=== PATIENT | male | born 1965 | race Caucasian/White ===

== ENCOUNTER 2016-12-26 23:19 | Inpatient (IN) | payer OTHER ==
[~2016-12-26] VITALS: Ht 185.4 cm; Wt 87.9 kg
[~2016-12-26 23:19] MED LIST: ALBU0.086 NEB; ALBU1AER INH; BACL10TA PO; GABA300C3 PO; HTN MED PO; HYDR-3535 PO; LISI-360 PO; PRED20 PO
[2016-12-26 23:20] VITALS: BP 134/82; PULSE 116; RESP 20; TEMP 98.9; O2SAT 100
[2016-12-27] VITALS (18 sets, daily range): BP systolic 68–128; BP diastolic 47–85; PULSE 80–113; RESP 14–22; TEMP 96–97.7; O2SAT 87–100
[2016-12-27] MEDS ORDERED: ALBU.5I NEB (01:29)
[2016-12-27] MEDS ORDERED: METO25TA3 PO (01:29)
[2016-12-27] MEDS ORDERED: LISI10TA3 PO (01:29)
[2016-12-27] MEDS ORDERED: GABA300C5 PO (01:29)
[2016-12-27] MEDS ORDERED: HYDR-3535 PO (01:29)
--- NOTE | 2016-12-27 01:49 | PD ---
HPI Chief Complaint: Respiratory Symptoms Time Seen by Provider: 01:19 Travel History International Travel<30 days: No Contact w/Intl Traveler<30days: No Traveled to known affect area: No History of Present Illness HPI 51yo M with PMH of asthma presents to the ED with c/o bilateral leg swelling for 3 days and exertional dyspnea as well. States he walks 3 feet and feels sob which is new. Denies any fever, cough, chest pain, n/v, abdominal pain. PFSH Past Medical History Asthma: Yes Diminished Hearing: No Fibromyalgia: Yes Hypertension: Yes Integumentary: Yes (reoccuring shingles) Immunizations Current: Yes Tetanus Vaccination: > 5 Years Influenza Vaccination: No Social History Alcohol Use: No Tobacco Use: Yes Substance Use: No Allergies-Medications (Allergen,Severity, Reaction): Coded Allergies: Ibuprofen (Verified Allergy, Severe, Nausea/Vomiting, 12/26/16) Levaquin (Verified Allergy, Mild, EDEMA, 12/26/16) Ultram (Verified Allergy, Mild, ITCHING, 12/26/16) Reported Meds & Prescriptions Reported Meds & Active Scripts Active Reported Lortab (Hydrocodone-Acetaminophen) 10-325 Mg Tab 1 Tab PO Q6H PRN Metoprolol Tartrate 25 Mg Tab 25 Mg PO DAILY Lisinopril 10 Mg Tab 10 Mg PO BID Albuterol Neb (Albuterol Sulfate) 2.5 Mg/0.5 Ml Neb 2.5 Mg NEB Q6HR NEB Note: The Albuterol Sulfate Inhalation Solution is concentrated and must be diluted. Read complete instructions carefully before using. Gabapentin 300 Mg Cap 900 Mg PO TID Review of Systems Except as stated in HPI: all other systems reviewed are Neg Physical Exam Narrative GENERAL: 51yo M in moderate distress. SKIN: Focused skin assessment warm/dry. HEAD: Atraumatic. Normocephalic. EYES: Pupils equal and round. No scleral icterus. No injection or drainage. ENT: No nasal bleeding or discharge. Mucous membranes pink and moist. NECK: Trachea midline. No JVD. CARDIOVASCULAR: Regular rate and rhythm. No murmur appreciated. RESPIRATORY: + accessory muscle use. Crackles bilateral bases. GASTROINTESTINAL: Abdomen soft, non-tender, nondistended. MUSCULOSKELETAL: No obvious deformities. No clubbing. No cyanosis. +Bilateral lower ext edema. NEUROLOGICAL: Awake and alert. No obvious cranial nerve deficits. Motor grossly within normal limits. Normal speech. PSYCHIATRIC: Appropriate mood and affect; insight and judgment normal. Data Data Last Documented VS Vital Signs Date Time Temp Pulse Resp B/P Pulse Ox O2 Delivery O2 Flow Rate FiO2 12/27/16 02:04 99 Room Air 12/27/16 01:29 110 22 128/79 12/26/16 23:20 98.9 Orders Complete Blood Count With Diff (12/27/16 01:40) Basic Metabolic Panel (Bmp) (12/27/16 01:40) B-Type Natriuretic Peptide (12/27/16 01:40) Act Partial Throm Time (Ptt) (12/27/16 01:40) Prothrombin Time / Inr (Pt) (12/27/16 01:40) Magnesium (Mg) (12/27/16 01:40) Ckmb (Isoenzyme) Profile (12/27/16 01:40) Troponin I (12/27/16 01:40) Blood Culture (12/27/16 01:40) Iv Access Insert/Monitor (12/27/16 01:40) Ecg Monitoring (12/27/16 01:40) Oximetry (12/27/16 01:40) Oxygen Administration (12/27/16 01:40) Chest, Single Ap (12/27/16 01:40) Lactic Acid Sepsis Protocol (12/27/16 01:40) Ceftriaxone Inj (Rocephin Inj) (12/27/16 02:45) Azithromycin (Zithromax) (12/27/16 02:45) Albuterol-Ipratropium Neb (Duoneb Neb) (12/27/16 02:45) CKMB (12/27/16 01:50) CKMB% (12/27/16 01:50) Furosemide Inj (Lasix Inj) (12/27/16 03:00) Admit To Inpatient (12/27/16 ) Vital Signs (Adult) Q4H (12/27/16 03:03) Activity Bed Rest With Brp (12/27/16 03:03) Diet Heart Healthy (12/27/16 Breakfast) Sodium Chloride 0.9% Flush (Ns Flush) (12/27/16 03:15) Sodium Chloride 0.9% Flush (Ns Flush) (12/27/16 09:00) Acetaminophen (Tylenol) (12/27/16 03:15) Ondansetron Inj (Zofran Inj) (12/27/16 03:15) Basic Metabolic Panel (Bmp) (12/28/16 06:00) Complete Blood Count With Diff (12/28/16 06:00) Troponin I (12/27/16 03:03) Electrocardiogram (12/27/16 03:03) Electrocardiogram (12/27/16 09:03) Resp Oxygen Jann C Titrat 1-4 L (12/27/16 ) Enoxaparin Inj (Lovenox Inj) (12/27/16 06:00) Naloxone Inj (Narcan Inj) (12/27/16 03:15) Inpatient Certification (12/27/16 ) Furosemide Inj (Lasix Inj) (12/27/16 09:00) Potassium Chloride (Kcl) (12/27/16 09:00) Echo 2d Comp W/Dopp(Routine) (12/27/16 ) Azithromycin (Zithromax) (12/27/16 09:00) Gabapentin (Neurontin) (12/27/16 09:00) Acetamin-Hydrocod 325-10 Mg ([place] 10-32 (12/27/16 03:15) Lisinopril (Prinivil) (12/27/16 09:00) Metoprolol Tartrate (Lopressor) (12/27/16 09:00) Admit Order (Ed Use Only) (12/27/16 03:06) Albuterol-Ipratropium Neb (Duoneb Neb) (12/27/16 08:00) Albuterol-Ipratropium Neb (Duoneb Neb) (12/27/16 03:15) Ceftriaxone Inj (Rocephin Inj) (12/28/16 03:00) Labs Laboratory Tests Test 12/27/16 01:50 White Blood Count 15.3 TH/MM3 Red Blood Count 5.31 MIL/MM3 Hemoglobin 14.3 GM/DL Hematocrit 44.8 % Mean Corpuscular Volume 84.2 FL Mean Corpuscular Hemoglobin 27.0 PG Mean Corpuscular Hemoglobin 32.0 % Concent Red Cell Distribution Width 15.8 % Platelet Count 385 TH/MM3 Mean Platelet Volume 9.2 FL Neutrophils (%) (Auto) % Lymphocytes (%) (Auto) % Monocytes (%) (Auto) % Eosinophils (%) (Auto) % Basophils (%) (Auto) % Neutrophils # (Auto) TH/MM3 Lymphocytes # (Auto) TH/MM3 Monocytes # (Auto) TH/MM3 Eosinophils # (Auto) TH/MM3 Basophils # (Auto) TH/MM3 CBC Comment AUTO DIFF Differential Total Cells 100 Counted Neutrophils % (Manual) 57 % Lymphocytes % 33 % Monocytes % 5 % Eosinophils % 5 % Neutrophils # (Manual) 8.7 TH/MM3 Differential Comment FINAL DIFF MANUAL Platelet Estimate NORMAL Platelet Morphology Comment ENLARGED Prothrombin Time 14.2 SEC Prothromb Time International 1.3 RATIO Ratio Activated Partial 25.4 SEC Thromboplast Time Sodium Level 133 MEQ/L Potassium Level 4.1 MEQ/L Chloride Level 98 MEQ/L Carbon Dioxide Level 26.8 MEQ/L Anion Gap 8 MEQ/L Blood Urea Nitrogen 29 MG/DL Creatinine 1.27 MG/DL Estimat Glomerular Filtration 59 ML/MIN Rate Random Glucose 119 MG/DL Lactic Acid Level 2.2 mmol/L Calcium Level 8.9 MG/DL Magnesium Level 2.3 MG/DL Total Creatine Kinase 252 U/L Creatine Kinase MB 10.6 NG/ML Troponin I 0.06 NG/ML B-Type Natriuretic Peptide 2445 PG/ML [facility] Medical Decision Making Medical Screen Exam Complete: Yes Emergency Medical Condition: Yes Interpretation(s) EKG: Sinus tachycardia at 114bpm. LAD. TWI I, aVL, V4-V6. Differential Diagnosis CHF exacerbation vs. Pneumonia vs. COPD vs. ACS Narrative Course 51yo M with new onset dyspnea on exertion and bilateral lower ext edema. Labs reviewed, leukocytosis at 15.3. BNP is elevated at 2445, consistent with CHF. Troponin is 0.06, likely from CHF. CXR showed right greater than left pleural effusion and basilar consolidation. Pt covered with ceftriaxone and azitrhomycin. Pt also given lasix 40mg IV. K: 4.1. Discussed with hospitalist MAGEN and accepted to Dr. Roberts's service for new onset CHF and pneumonia. Diagnosis Primary Impression: CHF (congestive heart failure) Qualified Code: I50.9 - Acute congestive heart failure, unspecified congestive heart failure type Additional Impression: PNA (pneumonia) Qualified Code: J18.9 - Pneumonia of both lower lobes due to infectious organism Admitting Information Admitting Physician Requests: Admit Jaramillo,January DO Dec 27, 2016 01:49
[2016-12-27 02:11] LABS: HEMATOCRIT 44.8 % (39.0-51.0); MEAN CELL VOLUME 84.2 FL (80.0-100.0); PLATELET COUNT 385 TH/MM3 (150-450); RED BLOOD COUNT 5.31 MIL/MM3 (4.50-5.90); RED CELL DISTRIBUTION WIDTH 15.8 % (11.6-17.2); WHITE BLOOD COUNT 15.3 TH/MM3 (4.0-11.0)
--- NOTE | 2016-12-27 02:12 | RADRPT ---
EXAM DATE/TIME: 12/27/2016 01:41 [facility] COMPARISON: Report only CHEST SINGLE AP, November 22, 2009, 20:24. INDICATIONS : Shortness of breath. MEDICAL HISTORY : None. SURGICAL HISTORY : None. ENCOUNTER: Initial ACUITY: 1 day PAIN SCORE: 10/10 LOCATION: Bilateral chest Back FINDINGS: Moderate right and small left pleural effusions are present and there is bibasilar consolidation. Mil d cardiomegaly is noted. Thoracic aorta is mildly tortuous. No pneumothorax. CONCLUSION: Right greater than left pleural effusions and basilar consolidation. Delroy Scott MD on December 27, 2016 at 2:09 Board Certified Radiologist. This report was verified electronically.
[2016-12-27 02:21] LABS: APTT (PATIENT) 25.4 SEC (24.3-30.1); HEMO FLAGS AUTO DIFF; INTERNATIONAL NORMALIZED RATIO 1.3 RATIO; PROTHROMBIN TIME - PATIENT 14.2 SEC (9.8-11.6)
[2016-12-27 02:37] LABS: ANION GAP 8 MEQ/L (5-15); BICARBONATE 26.8 MEQ/L (21.0-32.0); BLOOD UREA NITROGEN 29 MG/DL (7-18); CHLORIDE 98 MEQ/L (98-107); GLOMERULAR FILTRATION RATE 59 ML/MIN (>89); MAGNESIUM 2.3 MG/DL (1.5-2.5); POTASSIUM 4.1 MEQ/L (3.5-5.1); SODIUM (NA) 133 MEQ/L (136-145)
[2016-12-27 02:40] LABS: CREATINE KINASE 252 U/L (39-308)
[2016-12-27] MEDS ORDERED: AZITHROMYCIN 250 MG TAB PO ONE (02:45)
[2016-12-27] MEDS ORDERED: cefTRIAXone INJ 1,000 MG in SODIUM CHLORIDE 0.9% INJ 100 ML IV ONE (02:45)
[2016-12-27] MEDS ORDERED: RESP: ALBUTEROL 2.5 MG/IPRATROPIUM 0.5 MG NEB (SCH) NEB ONE (02:45)
[2016-12-27 02:52] LABS: EOSINOPHILS 5 % (0-4); NEUTROPHIL # MANUAL DIFF 8.7 TH/MM3 (1.8-7.7); POLYS (SEG NEUTROPHILS) 57 % (16-70); WBC DIFF SAMPLE 100
[2016-12-27 02:53] LABS: CKMB 10.6 NG/ML (0.5-3.6); PLATELET ESTIMATE SMEAR NORMAL (NORMAL); PLATELET MORPHOLOGY ENLARGED (NORMAL); SCAN/DIFF FINAL DIFF MANUAL
[2016-12-27] MEDS ORDERED: FUROSEMIDE 20 MG/2 ML VIAL IV PUSH ONE (03:00)
[2016-12-27] MEDS ORDERED: SODIUM CHLORIDE 0.9% FLUSH 10 ML FLUSH IV FLUSH PRN (03:15)
[2016-12-27] MEDS ORDERED: NALOXONE HCL 0.4 MG/ML AMP IV PRN (03:15)
[2016-12-27] MEDS ORDERED: RESP: ALBUTEROL 2.5 MG/IPRATROPIUM 0.5 MG NEB (PRN) NEB (03:15)
[2016-12-27] MEDS ORDERED: ACETAMINOPHEN 325 MG TAB PO PRN (03:15)
[2016-12-27 04:01] LABS: LACTIC ACID GHOST NOT REPORTABLE
--- NOTE | 2016-12-27 04:22 | HHI.HP ---
[facility] No Primary Care Physician Admission Diagnosis New onset CHF Diagnoses: Chief Complaint: SOB, BLE edema Travel History International Travel<30 Days: No Contact w/Intl Traveler <30 Da: No Traveled to Known Affected Are: No History of Present Illness This is a 51-year-old male patient with past medical history which includes asthma and hypertension. Patient reports approximately 4 days ago he began having bilateral lower extremity edema. Initially elevating bilateral lower extremities decreased the edema. Patient reports lately that has not helped any more. Patient also reports shortness of breath for the past 2-3 days. Patient reports shortness of breath is worse with even minimal exertion. Better at rest. Patient denies associated cough. Patient does report he sleeps on approximately 3 pillows at night and is unable to lay flat. Patient denies recent weight gain. Patient also denies chest pain, nausea, vomiting, diarrhea fevers or chills. Review of Systems Except as stated in HPI: all other systems reviewed are Neg Past Family Social History Past Medical History asthma and hypertension Past Surgical History Left knee meniscus surgery 2 Reported Medications Lortab (Hydrocodone-Acetaminophen) 10-325 Mg Tab 1 Tab PO Q6H PRN Metoprolol Tartrate 25 Mg Tab 25 Mg PO DAILY Lisinopril 10 Mg Tab 10 Mg PO BID Albuterol Neb (Albuterol Sulfate) 2.5 Mg/0.5 Ml Neb 2.5 Mg NEB Q6HR NEB Note: The Albuterol Sulfate Inhalation Solution is concentrated and must be diluted. Read complete instructions carefully before using. Gabapentin 300 Mg Cap 900 Mg PO TID Allergies: Coded Allergies: Ibuprofen (Verified Allergy, Severe, Nausea/Vomiting, 12/26/16) Levaquin (Verified Allergy, Mild, EDEMA, 12/26/16) Ultram (Verified Allergy, Mild, ITCHING, 12/26/16) Active Ordered Medications Current Medications Medications (Trade) Dose Ordered Sig/Vishal Route Start Time Stop Time Status Last Admin (NS Flush) 2 ml UNSCH PRN IV FLUSH 12/27/16 03:15 (NS Flush) 2 ml BID IV FLUSH 12/27/16 09:00 (Tylenol) 650 mg Q4H PRN PO 12/27/16 03:15 (Zofran Inj) 4 mg Q6H PRN IVP 12/27/16 03:15 (Lovenox Inj) 40 mg Q24H SQ 12/27/16 06:00 (Narcan Inj) 0.4 mg UNSCH PRN IV 12/27/16 03:15 (Lasix Inj) 40 mg BID@09,18 IV PUSH 12/27/16 09:00 Potassium Chloride 20 meq 20 meq DAILY PO 12/27/16 09:00 (Rocephin Inj/NS Inj) 100 ml @ 200 mls/hr Q24H IV 12/28/16 03:00 (Zithromax) 500 mg DAILY PO 12/27/16 09:00 (Neurontin) 900 mg TID PO 12/27/16 09:00 ([place] 10-325 Mg) 1 tab Q6H PRN PO 12/27/16 03:15 (Prinivil) 10 mg BID PO 12/27/16 09:00 (Lopressor) 25 mg DAILY PO 12/27/16 09:00 Family History Father at 56 secondary EtOH abuse Mother is still alive in her 90s has hypertension and diabetes mellitus Social History Patient reports he smokes proximally pack a day since he was 13 years old Denies EtOH use at this time reports he quit drinking 3-4 years ago Denies illicit drug use Physical Exam Vital Signs Vital Signs Date Time Temp Pulse Resp B/P Pulse Ox O2 Delivery O2 Flow Rate FiO2 12/27/16 03:27 95 12/27/16 02:04 99 Room Air 12/27/16 02:04 99 Room Air 12/27/16 01:29 110 22 128/79 96 Room Air 12/27/16 01:18 96 Room Air 12/26/16 23:20 98.9 116 20 134/82 100 Physical Exam GENERAL: This is a well-nourished, well-developed patient, unable to lay flat due to shortness of breath and does appear short of breath with conversation. SKIN: No rashes, ecchymoses or lesions. Cool and dry. HEAD: Atraumatic. Normocephalic. No temporal or scalp tenderness. EYES: Extraocular motions intact. No scleral icterus. No injection or drainage. CARDIOVASCULAR: Tachycardic without murmurs, gallops, or rubs. Positive JVD RESPIRATORY: Bilateral basilar crackles noted GASTROINTESTINAL: Abdomen soft, non-tender, MUSCULOSKELETAL: Bilateral lower extremity edema 1-2+, No calf tenderness. Negative Homans sign bilaterally. NEUROLOGICAL: Awake and alert. No focal deficits appreciated Motor and sensory grossly within normal limits. Five out of 5 muscle strength in all muscle groups. Normal speech. Laboratory Laboratory Tests Test 12/27/16 01:50 White Blood Count 15.3 Red Blood Count 5.31 Hemoglobin 14.3 Hematocrit 44.8 Mean Corpuscular Volume 84.2 Mean Corpuscular Hemoglobin 27.0 Mean Corpuscular Hemoglobin 32.0 Concent Red Cell Distribution Width 15.8 Platelet Count 385 Mean Platelet Volume 9.2 Neutrophils (%) (Auto) Lymphocytes (%) (Auto) Monocytes (%) (Auto) Eosinophils (%) (Auto) Basophils (%) (Auto) Neutrophils # (Auto) Lymphocytes # (Auto) Monocytes # (Auto) Eosinophils # (Auto) Basophils # (Auto) CBC Comment AUTO DIFF Differential Total Cells 100 Counted Neutrophils % (Manual) 57 Lymphocytes % 33 Monocytes % 5 Eosinophils % 5 Neutrophils # (Manual) 8.7 Differential Comment FINAL DIFF MANUAL Platelet Estimate NORMAL Platelet Morphology Comment ENLARGED Prothrombin Time 14.2 Prothromb Time International 1.3 Ratio Activated Partial 25.4 Thromboplast Time Sodium Level 133 Potassium Level 4.1 Chloride Level 98 Carbon Dioxide Level 26.8 Anion Gap 8 Blood Urea Nitrogen 29 Creatinine 1.27 Estimat Glomerular Filtration 59 Rate Random Glucose 119 Lactic Acid Level 2.2 Calcium Level 8.9 Magnesium Level 2.3 Total Creatine Kinase 252 Creatine Kinase MB 10.6 Troponin I 0.06 B-Type Natriuretic Peptide 2445 Date/Time Procedure Status Source Growth 12/27/16 01:50 Aerobic Blood Culture Received Blood Peripheral Pending 12/27/16 01:50 Anaerobic Blood Culture Received Blood Peripheral Pending Result Diagram: 12/27/16 0150 12/27/16 0150 Assessment and Plan Problem List: (1) CHF (congestive heart failure) ICD Code: I50.9 Status: Acute (2) PNA (pneumonia) ICD Code: J18.9 Status: Acute (3) HTN (hypertension) ICD Code: I10 Status: Acute Assessment and Plan This is a 51-year-old general medical past medical history which includes asthma and hypertension. Presents with new onset congestive heart failure bilateral lower extremity edema, shortness of breath BNP 2445 and chest x-ray with moderate right and small left pleural effusions and bibasilar consolidation mild cardiomegaly is noted EKG reviewed and reveals Sinus tachycardia at 114bpm. LAD. TWI I, aVL, V4-V6. New onset congestive heart failure- unknown type echocardiogram pending Bilateral pleural effusion BNP 2445 Continue Lasix 40 mg IV daily with potassium Continue his cardiac telemetry Chest x-ray reviewed by myself and reveals moderate right and small left pleural effusions are present and there is bibasilar consolidation. Mild cardiomegaly is noted. Thoracic aortic is mildly tortuous. No pneumothorax Echocardiogram ordered and pending Consult cardiology Continue patient's home lisinopril and metoprolol Committee acquired pneumonia Continue azithromycin and Rocephin started emergency department Do nebs every 6 hours and when necessary Hypertension-chronic Continue lisinopril 10 mg twice a day and metoprolol 25 mg daily Continue to monitor trend Elevated troponin 0.06- likely secondary to CHF will rule out ACS Serial troponin and serial EKGs DVT prophylaxis with Lovenox Discussed with the ER provider, nursing and patient Seen in the room and evaluated discussed with his , plan of care discussed with patient and his consulted computer training specialist. following recommendations. Code Status Full Code. Discussed Condition With Patient , and nurse Miss Jo. Physician Certification 2 Midnight Certification Type: Admission for Inpatient Services Order for Inpatient Services The services are ordered in accordance with Medicare regulations or non- Medicare payer requirements, as applicable. In the case of services not specified as inpatient-only, they are appropriately provided as inpatient services in accordance with the 2-midnight benchmark. Estimated LOS (days): 2 days is the estimated time the patient will need to remain in the hospital, assuming treatment plan goals are met and no additional complications. Post-Hospital Plan: Home Mica Lyle Dec 27, 2016 04:22 Gui Ribeiro MD Dec 27, 2016 16:56
[2016-12-27] MEDS: ONDANSETRON HCL 4 MG/2 ML VIAL IVP PRN ×2 (04:59→15:20)
[2016-12-27] MEDS: ENOXAPARIN SODIUM 40 MG/0.4 ML SYRINGE SQ SCH (05:55)
[2016-12-27] MEDS: ACETAMINOPHEN/HYDROcodone 325 MG/10 MG TAB PO PRN ×2 (07:55→15:20)
[2016-12-27] MEDS: RESP: ALBUTEROL 2.5 MG/IPRATROPIUM 0.5 MG NEB (SCH) NEB ×3 (08:16→21:15)
[2016-12-27] MEDS: FUROSEMIDE 40 MG/4 ML VIAL IV PUSH SCH ×2 (09:38→18:00)
[2016-12-27] MEDS: POTASSIUM CHLORIDE 20 MEQ CONTROLLED RELEASE TAB PO SCH (09:38)
[2016-12-27] MEDS: GABAPENTIN 300 MG CAP PO SCH ×3 (09:39→18:00)
[2016-12-27] MEDS: AZITHROMYCIN 250 MG TAB PO SCH (09:39)
[2016-12-27] MEDS: METOPROLOL TARTRATE 25 MG TAB PO SCH (09:39)
[2016-12-27] MEDS: LISINOPRIL 10 MG TAB PO SCH ×2 (09:39→20:03)
[2016-12-27] MEDS: SODIUM CHLORIDE 0.9% FLUSH 10 ML FLUSH IV FLUSH SCH ×2 (09:40→20:02)
--- NOTE | 2016-12-27 13:23 | MB ---
cc: DEDRICK MALDONADO DATE OF CONSULTATION 12/27/16 DATE OF 1965 REASON FOR CONSULTATION Heart failure. HISTORY OF PRESENT ILLNESS 51-year-old male with past medical history significant for hypertension, smoking , hyperlipidemia that presented to the emergency department with 5 days of shortness of breath and bilateral leg swelling. He report the shortness of breath is worsened by exertion and is relieved by rest. He denies fevers, chills , nausea, vomiting, diarrhea, cough, chest pains or palpitations. He has never seen a farm marketer and has had no a cardiac interventions in the past. REVIEW OF SYSTEMS The review of systems negative except for what is mentioned in the HPI. PAST MEDICAL HISTORY Hyperlipidemia, hypertension, asthma. PAST SURGICAL HISTORY Left knee meniscus surgery x2. MEDICATIONS Home medications: 1. Lortab. 2. Metoprolol 25 milligrams p.o. daily. 3. Lisinopril 10 milligrams p.o. b.i.d. 4. Albuterol inhaler. 5. Gabapentin 300 milligrams p.o. t.i.d. ALLERGIES IBUPROFEN, LEVAQUIN, ULTRAM. FAMILY HISTORY Father at 56 secondary to alcohol abuse. Mother has hypertension and diabetes. SOCIAL HISTORY Positive for smoking, denies illicit drug use or alcohol abuse. PHYSICAL EXAMINATION VITAL SIGNS: Temperature 97.6, respiratory rate 18, heart rate 110, blood pressure 110/65, O2 sat 98% in room air. GENERAL: Generally, awake, alert and oriented times three, no acute distress. NECK: Positive JVD, no carotid bruits. HEART: Rapid heart rate, tachycardic. No murmurs, rubs or gallops. LUNGS: Bibasilar air, mild rales. No wheezes, no rhonchi. ABDOMEN: Soft, nontender, nondistended. Positive bowel sounds. EXTREMITIES: No cyanosis, +1 edema, more prominent on the left leg than the right. Pulses throughout. DATA CBC hemoglobin 14, hematocrit 44, platelet count 385, INR 1.3. Chemistries, sodium 133, potassium 4.1, BUN 29, creatinine 1.27. Troponin 0.06 and 0.06. BNP 2445. IMAGING STUDIES Chest x-ray left pleural effusion with bibasilar consolidation. CARDIOLOGY STUDIES EKG sinus tachycardia with nonspecific ST changes. ASSESSMENT/PLAN 51-year-old male with cardiac risk factors that include hypertension, hyperlipidemia, smoking that presents with new onset bilateral leg edema and shortness of breath on exertion consistent with new onset heart failure exacerbation. He remains fairly hemodynamically stable. No cardiac workup in the past. Given the patient's presenting complaints I think reasonable to pursue a cardiac workup to further identify a cardiac reason for his symptoms. Recommendations: 1. 2-D echocardiogram. 2. Continue IV diuresis. 3. Strict in and outputs. 4. Low-salt diet. 5. Daily weights. 6. Start aspirin 81 mg p.o. daily. 7. Continue lisinopril, metoprolol. Thank you for the opportunity to take part in the care of this patient. Further therapy to be determined Dedrick Maldonado MD SATIN FINISHER/EO /12:43 PM /1:07 PM ABEL
--- NOTE | 2016-12-27 18:35 | EKG ---
Date Performed: 12/27/2016 Time Performed: 08:55:09 PTAGE: 51 years EKG: SINUS TACHYCARDIA POSSIBLE LEFT ATRIAL ENLARGEMENT MARKED LEFT AXIS DEVIATION INCOMPLETE RI GHT BUNDLE BRANCH BLOCK ANTERIOR MYOCARDIAL INFARCTION , OF INDETERMINATE AGE MODERATE T-WAVE ABNORMA LITY PREVIOUS TRACING : 12/27/2016 03.20 Compared to prior tracing no significant change DOCTOR: Thuy Ayon Interpretating Date/Time 12/27/2016 18:34:04
--- NOTE | 2016-12-27 18:41 | EKG ---
Date Performed: 12/27/2016 Time Performed: 03:20:37 PTAGE: 51 years EKG: SINUS TACHYCARDIA LEFT ATRIAL ENLARGEMENT BORDERLINE RIGHT AXIS DEVIATION INCOMPLETE RIGHT BUNDLE BRANCH BLOCK SEPTAL MYOCARDIAL INFARCTION MODERATE T-WAVE ABNORMALITY ABNORMAL ECG PREVIOUS TRACING : 12/27/2016 01.37 Compared to prior tracing no significant change DOCTOR: Thuy Ayon Interpretating Date/Time 12/27/2016 18:40:49
--- NOTE | 2016-12-27 18:43 | EKG ---
Date Performed: 12/27/2016 Time Performed: 01:37:21 PTAGE: 51 years EKG: SINUS TACHYCARDIA LEFT ATRIAL ENLARGEMENT MARKED LEFT AXIS DEVIATION INCOMPLETE RIGHT BUNDL E BRANCH BLOCK SEPTAL MYOCARDIAL INFARCTION MODERATE T-WAVE ABNORMALITY ABNORMAL ECG NO PREVIOUS TRACING DOCTOR: Thuy Ayon Interpretating Date/Time 12/27/2016 18:42:32
[2016-12-27 18:55] LABS: BLOOD GAS BASE EXCESS -1.4 mmol/L (-2-2); BLOOD GAS CARBOXYHEMOGLOBIN 1.5 % (0-4); BLOOD GAS HCO3 23 mmol/L (22-26); BLOOD GAS METHEMOGLOBIN 0.6 % (0-2); BLOOD GAS O2 HGB SATURATION 96 % (90-100); BLOOD GAS OXYGEN CONTENT 17.1 Vol % (12.0-20.0); BLOOD GAS PCO2 44 mmHg (38-42); BLOOD GAS PO2 120 mmHg (61-120); BLOOD GAS TOTAL HGB 12.6 G/DL (12.0-16.0); TEMP CORR TO 98.6
[2016-12-27 18:56] LABS: CRITICAL VALUE NO; DRAW SITE RT RADIAL; LITER FLOW 5 L/M; NUMBER OF ARTERIAL PUNCTURES 1; OXYGEN DEVICE NASAL CANNULA; STAT YES; ULNAR PULSE PRESENT
--- NOTE | 2016-12-27 19:17 | RADRPT ---
EXAM DATE/TIME: 12/27/2016 18:43 [facility] COMPARISON: CHEST SINGLE AP, December 27, 2016, 1:41. INDICATIONS : Short of breath MEDICAL HISTORY : Congestive heart failure. SURGICAL HISTORY : None. ENCOUNTER: Subsequent ACUITY: 1 day PAIN SCORE: Non-responsive. LOCATION: Bilateral chest FINDINGS: Right basilar opacity is present may be due to a combination of consolidation and or pleural effusion . Heart and mediastinum have not changed. The rest of the examination has not significantly changed. CONCLUSION: No appreciable change. Letty Dee MD on December 27, 2016 at 19:15 Board Certified Radiologist. This report was verified electronically.
[2016-12-27] MEDS ORDERED: SODIUM CHLOR 0.9% 250 ML INJ 250 ML IV ONE (19:30)
--- NOTE | 2016-12-27 19:48 | PD.CONS ---
HPI Service Critical Care Medicine Consult Requested By [facility]. Dr. Sanon Reason for Consult Circulatory Shock Primary Care Physician No Primary Care Physician History of Present Illness 51 y/0 man with worsening SOB over several days admitted with newly diagnosed, probable systolic, ischemic heart failure. CXR with effusion, pulmonary congestion. EKG with old anterior MD. Underwent aggresive diuresis today and became hypotensive. Presently on lisinopril 10 bid and lopressor 25 mg bid. Being transferred to [facility]. He carries a history of asthma which is probably cardiac in origin, though he does have a substantial smoking history. Past Family Social History Allergies: Coded Allergies: Ibuprofen (Verified Allergy, Severe, Nausea/Vomiting, 12/26/16) Levaquin (Verified Allergy, Mild, EDEMA, 12/26/16) Ultram (Verified Allergy, Mild, ITCHING, 12/26/16) Past Medical History Past Medical History Asthma: Yes Diminished Hearing: No Fibromyalgia: Yes Hypertension: Yes Integumentary: Yes (reoccuring shingles) Immunizations Current: Yes Tetanus Vaccination: > 5 Years Influenza Vaccination: No Social History Alcohol Use: No Tobacco Use: Yes Substance Use: No Allergies-Medications Allergies-Medications (Allergen,Severity, Reaction): Coded Allergies: Ibuprofen (Verified Allergy, Severe, Nausea/Vomiting, 12/26/16) Levaquin (Verified Allergy, Mild, EDEMA, 12/26/16) Ultram (Verified Allergy, Mild, ITCHING, 12/26/16) Reported Meds & Prescriptions Reported Meds & Active Scripts Active Reported Lortab (Hydrocodone-Acetaminophen) 10-325 Mg Tab 1 Tab PO Q6H PRN Metoprolol Tartrate 25 Mg Tab 25 Mg PO DAILY Lisinopril 10 Mg Tab 10 Mg PO BID Albuterol Neb (Albuterol Sulfate) 2.5 Mg/0.5 Ml Neb 2.5 Mg NEB Q6HR NEB Note: The Albuterol Sulfate Inhalation Solution is concentrated and must be diluted. Read complete instructions carefully before using. Gabapentin 300 Mg Cap 900 Mg PO TID Physical Exam Vital Signs Vital Signs Date Time Temp Pulse Resp B/P Pulse Ox O2 Delivery O2 Flow Rate FiO2 12/27/16 18:33 96 Nasal Cannula 2.00 12/27/16 16:30 96.0 87 20 81/61 98 12/27/16 12:00 96.5 91 18 94/76 92 12/27/16 08:16 98 21 12/27/16 08:00 97.6 113 18 110/65 98 12/27/16 04:24 97.7 107 20 128/85 99 12/27/16 03:27 95 12/27/16 02:04 99 Room Air 12/27/16 02:04 99 Room Air 12/27/16 01:29 110 22 128/79 96 Room Air 12/27/16 01:18 96 Room Air 12/26/16 23:20 98.9 116 20 134/82 100 Laboratory Laboratory Tests Test 12/27/16 12/27/16 12/27/16 12/27/16 01:50 05:05 11:20 18:44 White Blood Count 15.3 Red Blood Count 5.31 Hemoglobin 14.3 Hematocrit 44.8 Mean Corpuscular Volume 84.2 Mean Corpuscular Hemoglobin 27.0 Mean Corpuscular Hemoglobin 32.0 Concent Red Cell Distribution Width 15.8 Platelet Count 385 Mean Platelet Volume 9.2 Neutrophils (%) (Auto) Lymphocytes (%) (Auto) Monocytes (%) (Auto) Eosinophils (%) (Auto) Basophils (%) (Auto) Neutrophils # (Auto) Lymphocytes # (Auto) Monocytes # (Auto) Eosinophils # (Auto) Basophils # (Auto) CBC Comment AUTO DIFF Differential Total Cells 100 Counted Neutrophils % (Manual) 57 Lymphocytes % 33 Monocytes % 5 Eosinophils % 5 Neutrophils # (Manual) 8.7 Differential Comment FINAL DIFF MANUAL Platelet Estimate NORMAL Platelet Morphology Comment ENLARGED Prothrombin Time 14.2 Prothromb Time International 1.3 Ratio Activated Partial 25.4 Thromboplast Time Sodium Level 133 Potassium Level 4.1 Chloride Level 98 Carbon Dioxide Level 26.8 Anion Gap 8 Blood Urea Nitrogen 29 Creatinine 1.27 Estimat Glomerular Filtration 59 Rate Random Glucose 119 Lactic Acid Level 2.2 2.1 Calcium Level 8.9 Magnesium Level 2.3 Total Creatine Kinase 252 217 Creatine Kinase MB 10.6 Troponin I 0.06 0.06 B-Type Natriuretic Peptide 2445 Blood Gas Puncture Site RT RADIAL Blood Gas Patient Temperature 98.6 Blood Gas HCO3 23 Blood Gas Base Excess -1.4 Blood Gas Oxygen Saturation 96 Arterial Blood pH 7.35 Arterial Blood Partial 44 Pressure CO2 Arterial Blood Partial 120 Pressure O2 Arterial Blood Oxygen Content 17.1 Arterial Blood 1.5 Carboxyhemoglobin Arterial Blood Methemoglobin 0.6 Blood Gas Hemoglobin 12.6 Oxygen Delivery Device NASAL CANNULA Blood Gas Liter Flow 5 Date/Time Procedure Status Source Growth 12/27/16 01:50 Aerobic Blood Culture Received Blood Peripheral Pending 12/27/16 01:50 Anaerobic Blood Culture Received Blood Peripheral Pending Result Diagram: 12/27/16 0150 12/27/16 0150 Assessment and Plan Problem List: (1) CHF (congestive heart failure) ICD Code: I50.9 Status: Acute (2) HTN (hypertension) ICD Code: I10 Status: Acute (3) Bronchospasm ICD Code: J98.01 Status: Acute (4) CAD (coronary artery disease), [place] coronary artery ICD Code: I25.10 Status: Acute Assessment and Plan Plan: 1. Hold lisinopril. 2. ECHO, cardiac. 3. Hydrate in increments, follow response. 4. Cardiac marker panel. 5. BNP a.m. 6. Pepcid. 7. Chemical DVT px. 8. NC O2. 9. Consider neosynephrine for MAP support. 10. Avoid tachycardia. 11. Serial mag, phos, k. Overall impression: Patient is critically ill with systolic heart failure and hypotension. Hold unloading agents until coronary anatomy better defined. Avoid overdiuresing prior to cath. Critical Care 42 mins Problem Qualifiers (1) CHF (congestive heart failure): Qualified Code: I50.9 - Acute congestive heart failure, unspecified congestive heart failure type Geovanny Dsouza MD Dec 27, 2016 19:48
[2016-12-27] MEDS ORDERED: CHLORHEXIDINE GLUCONATE 2 % 1 PACK (2 CLOTHS)(extra cloths) TOPICAL PRN (21:15)
[2016-12-28] VITALS (14 sets, daily range): BP systolic 88–111; BP diastolic 53–71; PULSE 92–108; RESP 13–26; TEMP 97.6–97.9; O2SAT 94–99
[2016-12-28] MEDS: CHLORHEXIDINE GLUCONATE 2 % 1 PACK (2 CLOTHS)(taper/protocol) TOPICAL SCH (02:32)
[2016-12-28] MEDS: cefTRIAXone INJ 1,000 MG in SODIUM CHLORIDE 0.9% INJ 100 ML IV SCH (02:35)
[2016-12-28] MEDS: ENOXAPARIN SODIUM 40 MG/0.4 ML SYRINGE SQ SCH (05:01)
[2016-12-28 07:13] LABS: AUTOMATED NEUTROPHIL # 8.7 TH/MM3 (1.8-7.7); BASOPHIL # 0.1 TH/MM3 (0-0.2); EOSINOPHIL # 0.6 TH/MM3 (0-0.4); EOSINOPHIL % 4.3 % (0.0-4.0); HEMATOCRIT 41.5 % (39.0-51.0); HEMO FLAGS DIFF FINAL; LYMPHOCYTE # 2.9 TH/MM3 (1.0-4.8); MEAN CELL VOLUME 85.5 FL (80.0-100.0); MEAN CORPUSCULAR HEMOGLOBIN 26.4 PG (27.0-34.0); MEAN CORPUSCULAR HGB CONC 30.9 % (32.0-36.0); MONO % 7.1 % (0.0-8.0); NEUT % 65.6 % (16.0-70.0); PLATELET COUNT 315 TH/MM3 (150-450); RED BLOOD COUNT 4.85 MIL/MM3 (4.50-5.90); RED CELL DISTRIBUTION WIDTH 15.9 % (11.6-17.2); WHITE BLOOD COUNT 13.3 TH/MM3 (4.0-11.0)
[2016-12-28 07:28] LABS: BICARBONATE 23.9 MEQ/L (21.0-32.0); MAGNESIUM 2.3 MG/DL (1.5-2.5); POTASSIUM 4.5 MEQ/L (3.5-5.1)
[2016-12-28] MEDS: LISINOPRIL 10 MG TAB PO SCH (08:44)
[2016-12-28] MEDS: FUROSEMIDE 40 MG/4 ML VIAL IV PUSH SCH ×2 (08:45→18:23)
[2016-12-28] MEDS: GABAPENTIN 300 MG CAP PO SCH ×3 (08:45→18:23)
[2016-12-28] MEDS: SODIUM CHLORIDE 0.9% FLUSH 10 ML FLUSH IV FLUSH SCH ×2 (08:45→19:41)
[2016-12-28] MEDS: AZITHROMYCIN 250 MG TAB PO SCH (08:45)
[2016-12-28] MEDS: POTASSIUM CHLORIDE 20 MEQ CONTROLLED RELEASE TAB PO SCH (08:45)
[2016-12-28] MEDS: RESP: ALBUTEROL 2.5 MG/IPRATROPIUM 0.5 MG NEB (SCH) NEB ×3 (08:45→20:41)
[2016-12-28] MEDS: METOPROLOL TARTRATE 25 MG TAB PO SCH (09:00)
--- NOTE | 2016-12-28 09:52 | HHI.CCPN ---
Subjective Remarks/Hospital Course 51 y/o patient with PMHx of asthma and HTN who initially presented on 12/27 with 4 days of LE edema and dyspnea. He stated that he had multiple episodes of SOB over the last 2-3 days prior to admission with minimal exertion. He denied any associated fevers, cough, chest pain, recent weight gain, NVD, or calf tenderness. He was then admitted for likely new onset CHF exacerbation with a BNP of 2445 and a CXR with moderate R and L pleural effusions with bibasilar consolidations. EKG showed prior anterior DE with sinus tachycardia. Overnight on 12/27 patient became hypotensive likely due to aggressive diuresis. He was then transferred to the [facility] for further monitoring. 12/28: Patient did well overnight with no acute events. Patient given Lasix and Lisinopril this AM with Metoprolol held. Pressure currently 102/65. Denies any SOB, chest pain, or palpitations. Objective Vital Signs Date Time Temp Pulse Resp B/P Pulse Ox O2 Delivery O2 Flow Rate FiO2 12/28/16 06:00 95 12/28/16 04:00 97.6 14 100/71 98 12/27/16 21:14 Nasal Cannula 5.00 12/27/16 08:16 21 Intake and Output 12/27/16 12/27/16 12/28/16 08:00 16:00 00:00 Intake Total 480 ml 500 ml 500 ml Output Total 600 ml 200 ml Balance 480 ml -100 ml 300 ml Result Diagram: 12/28/16 0619 12/28/16 0606 Other Results Laboratory Tests Test 12/27/16 18:44 Blood Gas Puncture Site RT RADIAL Blood Gas Patient Temperature 98.6 Blood Gas HCO3 23 mmol/L (22-26) Blood Gas Base Excess -1.4 mmol/L (-2-2) Blood Gas Oxygen Saturation 96 % (90-100) Arterial Blood pH 7.35 (7.380-7.420) Arterial Blood Partial 44 mmHg (38-42) Pressure CO2 Arterial Blood Partial 120 mmHg Pressure O2 (61-120) Arterial Blood Oxygen Content 17.1 Vol % (12.0-20.0) Arterial Blood 1.5 % (0-4) Carboxyhemoglobin Arterial Blood Methemoglobin 0.6 % (0-2) Blood Gas Hemoglobin 12.6 G/DL (12.0-16.0) Oxygen Delivery Device NASAL CANNULA Blood Gas Liter Flow 5 L/M Objective Remarks GENERAL: Well-nourished, well-developed 51 y/o patient sitting up on the side of the bed. SKIN: No rashes, ecchymoses or lesions. Cool and dry. HEENT: AT, NC with EOMI. PERRLA. No LAD appreciated. CARDIOVASCULAR: Tachycardic without murmurs, gallops, or rubs. Positive JVD. RESPIRATORY: Mild wheezes during prolonged expiratory phase. No CRW. GASTROINTESTINAL: Abdomen soft, non-tender, with +BS. MUSCULOSKELETAL: Bilateral lower extremity 1-2+ pedal edema, No calf tenderness. NEUROLOGICAL: Awake and alert. Normal speech. A/P Problem List: (1) CHF (congestive heart failure) ICD Code: I50.9 Status: Acute (2) HTN (hypertension) ICD Code: I10 Status: Acute (3) Bronchospasm ICD Code: J98.01 Status: Acute (4) CAD (coronary artery disease), [place] coronary artery ICD Code: I25.10 Status: Acute Assessment and Plan A/P: Neuro: Fibromyalgia Chronic low back pain Neurochecks per [facility] protocol Continue home Gabapentin and Lortab as tolerated Cardiac: New onset CHF CAD Prior anterior infarction per EKG HTN f/u Echocardiogram Troponin negative x3 Repeat BNP 1624 Continue Lasix 40mg IV BID Continue Metoprolol, hold for SBP <100 Hold Lisinopril Cardiology consulted, Dr. Palacios Respiratory: Asthma Community Acquired PNA Ceftriaxone and Azithromycin (12/27- ) BC x2 12/27: pending DuoNebs Q6H and PRN Renal: Elevated BUN, Creatinine likely due to aggressive diuresis I/Os: Balanced over last 24hr, continue to monitor strict I/Os Continue to monitor BUN, Creatinine Heme/ID: Community Acquired PNA Ceftriaxone and Azithromycin (12/27- ) BC x2 12/27: pending Endocrine: Monitor BG per IM protocol Prophylaxis: GI Prophylaxis - Currently not required DVT prophylaxis - Lovenox daily, SCD/TEDs Diet - Heart Healthy, Sodium restricted Addendum: Patient seen and examined earlier. Discussed findings, assessment and plan with Dr. Samano. Agree with above note. Patient will be transferred back to hospitalist service for further medical management. Problem Qualifiers (1) CHF (congestive heart failure): Qualified Code: I50.9 - Acute congestive heart failure, unspecified congestive heart failure type Sanjeev Samano MD R1 December 28, 2016 09:52 Javier Celeste MD December 28, 2016 18:59
[2016-12-28] MEDS ORDERED: PNEUMOCOCCAL POLYVALENT INJ 25 MCG/0.5 ML SYR IM ONE (10:00)
[2016-12-28] MEDS: ACETAMINOPHEN/HYDROcodone 325 MG/10 MG TAB PO PRN ×2 (13:07→19:41)
--- NOTE | 2016-12-28 13:15 | PD.CARD.PN ---
Subjective Subjective Remarks Complaints of right side flank pain Echo done this am pending results overnight events noted. hypotension and TRAM in the setting of overdiuresis Objective Medications Current Medications Medications (Trade) Dose Ordered Sig/Vishal Route Start Time Stop Time Status Last Admin (NS Flush) 2 ml UNSCH PRN IV FLUSH 12/27/16 03:15 (NS Flush) 2 ml BID IV FLUSH 12/27/16 09:00 12/28/16 08:45 (Tylenol) 650 mg Q4H PRN PO 12/27/16 03:15 (Zofran Inj) 4 mg Q6H PRN IVP 12/27/16 03:15 12/27/16 15:20 (Lovenox Inj) 40 mg Q24H SQ 12/27/16 06:00 12/28/16 05:01 (Narcan Inj) 0.4 mg UNSCH PRN IV 12/27/16 03:15 (Lasix Inj) 40 mg BID@09,18 IV PUSH 12/27/16 09:00 12/28/16 08:45 Potassium Chloride 20 meq 20 meq DAILY PO 12/27/16 09:00 12/28/16 08:45 (Rocephin Inj/NS Inj) 100 ml @ 200 mls/hr Q24H IV 12/28/16 03:00 12/28/16 02:35 (Zithromax) 500 mg DAILY PO 12/27/16 09:00 12/28/16 08:45 (Neurontin) 900 mg TID PO 12/27/16 09:00 12/28/16 13:04 ([place] 10-325 Mg) 1 tab Q6H PRN PO 12/27/16 03:15 12/28/16 13:07 (Prinivil) 10 mg BID PO 12/27/16 09:00 Hold 12/28/16 08:44 (Lopressor) 25 mg DAILY PO 12/27/16 09:00 12/27/16 09:39 Miscellaneous Information Patient in critical care unit? Ass... [id number] .XX 12/27/16 21:15 12/27/16 21:15 (Chlorhexidine 2% Cloth) 3 pack DAILY@04 TOPICAL 12/28/16 04:00 01/01/17 04:01 12/28/16 02:32 (Chlorhexidine 2% Cloth) 3 pack UNSCH PRN TOPICAL 12/27/16 21:15 01/01/17 21:08 Vital Signs / I&O Vital Signs Date Time Temp Pulse Resp B/P Pulse Ox O2 Delivery O2 Flow Rate FiO2 12/28/16 10:00 104 12/28/16 08:00 97.6 100 16 102/65 96 12/28/16 08:00 100 12/28/16 07:00 99 Nasal Cannula 3.00 12/28/16 06:00 95 12/28/16 04:00 96 12/28/16 04:00 97.6 96 14 100/71 98 12/28/16 02:00 92 12/28/16 00:00 97.9 95 13 88/53 97 12/28/16 00:00 95 12/27/16 22:00 90 12/27/16 21:14 100 Nasal Cannula 5.00 12/27/16 20:00 97.5 80 14 81/52 96 12/27/16 20:00 80 12/27/16 18:47 93 12/27/16 18:46 88 76/47 93 12/27/16 18:40 73/56 12/27/16 18:37 98 68/81 98 12/27/16 18:35 90 72/56 87 12/27/16 18:33 96 Nasal Cannula 2.00 12/27/16 16:30 96.0 87 20 81/61 98 I/O 12/27/16 12/27/16 12/27/16 12/28/16 12/28/16 12/28/16 07:00 15:00 23:00 07:00 15:00 23:00 Intake Total 480 ml 500 ml 500 ml 199 ml Output Total 600 ml 200 ml 400 ml Balance 480 ml -100 ml 300 ml -201 ml Intake Oral 480 ml 500 ml 100 ml IV Total 500 ml 99 ml Output Urine Total 600 ml 200 ml 400 ml # Voids 1 2 2 3 # Bowel Movements 0 Physical Exam GENERAL: Well-nourished, well-developed patient. SKIN: Warm and dry. HEAD: Normocephalic. EYES: No scleral icterus. No injection or drainage. NECK: Supple, trachea midline. No JVD or lymphadenopathy. CARDIOVASCULAR: Regular rate and rhythm without murmurs, gallops, or rubs. RESPIRATORY: Breath sounds equal bilaterally. No accessory muscle use. GASTROINTESTINAL: Abdomen soft, non-tender, nondistended. EXTREMITIES: No cyanosis, +2 edema Left>Right NEUROLOGICAL: Awake, alert, and oriented x 3. Non-focal. Laboratory Laboratory Tests Test 12/27/16 12/27/16 12/28/16 12/28/16 18:44 20:00 06:06 06:19 Blood Gas Puncture Site RT RADIAL Blood Gas Patient Temperature 98.6 Blood Gas HCO3 23 mmol/L Blood Gas Base Excess -1.4 mmol/L Blood Gas Oxygen Saturation 96 % Arterial Blood pH 7.35 Arterial Blood Partial 44 mmHg Pressure CO2 Arterial Blood Partial 120 mmHg Pressure O2 Arterial Blood Oxygen Content 17.1 Vol % Arterial Blood 1.5 % Carboxyhemoglobin Arterial Blood Methemoglobin 0.6 % Blood Gas Hemoglobin 12.6 G/DL Oxygen Delivery Device NASAL CANNULA Blood Gas Liter Flow 5 L/M Total Creatine Kinase 213 U/L 202 U/L Troponin I 0.06 NG/ML B-Type Natriuretic Peptide 2347 PG/ML Nasal Screen MRSA (PCR) MRSA NOT DETECTED Sodium Level 136 MEQ/L Potassium Level 4.5 MEQ/L Chloride Level 101 MEQ/L Carbon Dioxide Level 23.9 MEQ/L Anion Gap 11 MEQ/L Blood Urea Nitrogen 41 MG/DL Creatinine 1.55 MG/DL Estimat Glomerular Filtration 47 ML/MIN Rate Random Glucose 77 MG/DL Calcium Level 8.1 MG/DL Magnesium Level 2.3 MG/DL White Blood Count 13.3 TH/MM3 Red Blood Count 4.85 MIL/MM3 Hemoglobin 12.8 GM/DL Hematocrit 41.5 % Mean Corpuscular Volume 85.5 FL Mean Corpuscular Hemoglobin 26.4 PG Mean Corpuscular Hemoglobin 30.9 % Concent Red Cell Distribution Width 15.9 % Platelet Count 315 TH/MM3 Mean Platelet Volume 9.4 FL Neutrophils (%) (Auto) 65.6 % Lymphocytes (%) (Auto) 22.0 % Monocytes (%) (Auto) 7.1 % Eosinophils (%) (Auto) 4.3 % Basophils (%) (Auto) 1.0 % Neutrophils # (Auto) 8.7 TH/MM3 Lymphocytes # (Auto) 2.9 TH/MM3 Monocytes # (Auto) 0.9 TH/MM3 Eosinophils # (Auto) 0.6 TH/MM3 Basophils # (Auto) 0.1 TH/MM3 CBC Comment DIFF FINAL Differential Comment Test 12/28/16 06:20 B-Type Natriuretic Peptide 1624 PG/ML Imaging Last Impressions Chest X-Ray 12/27/16 0140 Signed Impressions: Service Date/Time: Tuesday, December 27, 2016 01:41 - CONCLUSION: Right greater than left pleural effusions and basilar consolidation. Delroy Scott MD Assessment and Plan Problem List: (1) CHF (congestive heart failure) Assessment and Plan: LV dysfunction, new onset. Will need ischemic evaluation/LHC Consider bilateral Leg US r/o DVT Resume HF meds when BP more stable Avoid electrolytes abnormalities Avoid nephrotoxic drugs (2) HTN (hypertension) (3) Bronchospasm (4) CAD (coronary artery disease), [place] coronary artery (5) PNA (pneumonia) Problem Qualifiers (1) CHF (congestive heart failure): Qualified Code: I50.9 - Acute congestive heart failure, unspecified congestive heart failure type (2) PNA (pneumonia): Qualified Code: J18.9 - Pneumonia of both lower lobes due to infectious organism Juan Palacios MD December 28, 2016 13:15
--- NOTE | 2016-12-28 21:04 | EC ---
Study Study Date:12/28/2016 STUDY CONCLUSIONS SUMMARY - Left ventricle: Large LV apical thrombus. The cavity size was dilated. Wall thickness was increased in a pattern of mild LVH. Systolic function was severely reduced. The estimated ejection fraction was 20%. Wall motion was normal; there were no regional wall motion abnormalities. - Mitral valve: Mild regurgitation. - Left atrium: The atrium was mildly dilated. - Tricuspid valve: Moderate-severe regurgitation. - Pulmonary arteries: Systolic pressure was mildly increased, estimated to be 43mm Hg. - Impressions: Intracardiac thrombus. Impressions: Intracardiac thrombus. If LV function is below 40, please consider prescribing an ACEI or ARB or document rationale for non-use. PROCEDURE DATA STUDY STATUS: Elective. Procedure: Transthoracic echocardiography. Image quality was good. Scanning was performed from the parasternal, apical, and subcostal acoustic windows. Study completion: The patient tolerated the procedure well. Transthoracic echocardiography. M-mode, complete 2D, complete spectral Doppler, and color Doppler. Height: Height: 73in. Weight: Weight: 174.6lb. Body mass index: BMI: 23.1kg/m^2. Body surface area: BSA: 2.03m^2. Patient status: Inpatient. CARDIAC ANATOMY LEFT VENTRICLE: Large LV apical thrombus. The cavity size was dilated. Wall thickness was increased in a pattern of mild LVH. Systolic function was severely reduced. The estimated ejection fraction was 20%. Wall motion was normal; there were no regional wall motion abnormalities. AORTIC VALVE: Trileaflet; normal thickness leaflets. Doppler: Transvalvular velocity was within the normal range. There was no stenosis. No regurgitation. Valve area: 2.39cm^2 (Vmax). Indexed valve area: 1.18cm^2/m^2 (Vmax). AORTA: Aortic root: The aortic root was normal in size. MITRAL VALVE: Structurally normal valve. Doppler: Transvalvular velocity was within the normal range. There was no evidence for stenosis. Mild regurgitation. Valve area by pressure half-time: 6.67cm^2. Indexed valve area by pressure half-time: 3.29cm^2/m^2. Peak gradient: 4mm Hg (D). LEFT ATRIUM: The atrium was mildly dilated. RIGHT VENTRICLE: The cavity size wasenlarged. RV hypokinesis. PULMONIC VALVE: Doppler: Transvalvular velocity was within the normal range. There was no evidence for stenosis. No regurgitation. TRICUSPID VALVE: Structurally normal valve. Doppler: Transvalvular velocity was within the normal range. Moderate-severe regurgitation. Peak gradient: 43mm Hg (D). PULMONARY ARTERY: The main pulmonary artery was normal-sized. Systolic pressure was mildly increased, estimated to be 43mm Hg. RIGHT ATRIUM: The atrium was normal in size. PERICARDIUM: There was no pericardial effusion. SYSTEMIC VEINS: Inferior vena cava: The vessel was normal in size. Patient weight: 174.6lb _Ejection fraction:_ 65-75% _Fractional shortening:_ 32% up to 5Kg 5-11.5Kg 11.6-22.9Kg 23-45Kg 45-57Kg Aortic Root 7-13 <17 13-22 17-27 17-27 LA diam 6-13 <23 24-38 33-47 37-40 RVID 10-17 7-15 7-15 7-18 8-17 LVIDd 12-22 <32 24-38 33-47 37-40 LVPW 2-4 3-6 5-7 6-8 7-8 IVS 2-4 3-6 5-7 6-8 7-8 BASIC MEASUREMENTS ADULT NORMAL Left ventricle LV internal dimension, ED, chordal 49 mm 43-52 level, PLAX LV internal dimension, ES, chordal *45.3 mm 23-38 level, PLAX Fractional shortening, chordal level, *8 % >29 PLAX LV posterior wall thickness, ED 14.3 mm IVS/LVPW ratio, ED 1 <1.3 Volume, ED, MOD, 1-plane 156 ml Volume, ES, MOD, 1-plane 121 ml Ejection fraction, MOD, 1-plane 22 % Stroke volume, MOD, 1-plane 35 ml Volume index, ED, MOD, 1-plane 77 ml/m^2 Volume index, ES, MOD, 1-plane 60 ml/m^2 Stroke index, MOD, 1-plane 17.2 ml/m^2 Ventricular septum Septal thickness, ED 14.3 mm Aortic valve Leaflet separation 18 mm 15-26 Left atrium Anterior-posterior dimension 48 mm Anterior-posterior dimension index *2.36 cm/m^2 <2.2 Right ventricle RV internal dimension, ED, PLAX *39.6 mm 19-38 BASIC MEASUREMENTS ADULT NORMAL Aortic valve Leaflet separation 18 mm 15-26 Aorta Root diameter, ED 30 mm 20-37 Left atrium Anterior-posterior dimension, ES *51 mm 19-40 Anterior-posterior dimension index, ES *2.51 cm/m^2 <2.2 LA/aortic root ratio 1.7 DOPPLER MEASUREMENTS ADULT NORMAL Aortic valve Peak velocity, S 134 cm/s Valve area, Vmax 2.39 cm^2 Valve area index, Vmax 1.18 cm^2/m^2 Mitral valve Peak E-wave velocity 105 cm/s Peak A-wave velocity 46.9 cm/s Pressure half-time 33 ms Peak gradient, D 4 mm Hg Peak E/A ratio 2.2 Valve area, pressure half-time 6.67 cm^2 Valve area index, pressure half-time 3.29 cm^2/m^2 Tricuspid valve Peak gradient, D 43 mm Hg Maximal inflow velocity 326 cm/s Pulmonic valve Peak velocity, S 81.4 cm/s LEGEND: Mean values are shown as u=mean value. Asterisk (*) bradley values outside specified normal range. Thuy Carranza [id number]
[2016-12-28] MEDS ORDERED: HEPARIN-D5W INJ 250 ML IV SCH (21:15)
[2016-12-28 21:56] LABS: MEAN CELL VOLUME 86.4 FL (80.0-100.0); MEAN CORPUSCULAR HEMOGLOBIN 26.5 PG (27.0-34.0); MEAN CORPUSCULAR HGB CONC 30.7 % (32.0-36.0); PLATELET COUNT 332 TH/MM3 (150-450); RED BLOOD COUNT 4.63 MIL/MM3 (4.50-5.90); RED CELL DISTRIBUTION WIDTH 16.2 % (11.6-17.2); REVIEW FLAG FINAL
[2016-12-28 21:57] LABS: APTT (PATIENT) 26.2 SEC (24.3-30.1); INTERNATIONAL NORMALIZED RATIO 1.2 RATIO; PROTHROMBIN TIME - PATIENT 13.8 SEC (9.8-11.6)
[2016-12-28] MEDS ORDERED: HEPARIN SODIUM - IV 10,000 UNITS/10 ML VIAL IV PRN ×2 (22:30)
--- NOTE | 2016-12-28 22:58 | EKG ---
Date Performed: 12/27/2016 Time Performed: 18:55:36 PTAGE: 51 years EKG: Sinus rhythm LEFT ANTERIOR FASCICULAR BLOCK ST DEVIATION AND MODERATE T-WAVE ABNORMALITY, CONSIDER ANTEROLATERAL ISCHEMIA ST DEVIATION AND MODERATE T-WAVE ABNORMALITY, CONSIDER INFERIOR ISCHEMIA ABNORMAL ECG PREVIOUS TRACING : 12/27/2016 08.55 Compared to the previous tracing T wave abnormalities are m ore prominent DOCTOR: Salvatore Faith Interpretating Date/Time 12/28/2016 22:56:28
[2016-12-29] VITALS (19 sets, daily range): BP systolic 98–119; BP diastolic 63–77; PULSE 100–114; RESP 10–17; TEMP 96.7–98.7; O2SAT 95–98
[2016-12-29] MEDS ORDERED: HEPARIN SODIUM - IV 10,000 UNITS/10 ML VIAL IV PRN ×2 (03:15)
[2016-12-29] MEDS: cefTRIAXone INJ 1,000 MG in SODIUM CHLORIDE 0.9% INJ 100 ML IV SCH (03:23)
[2016-12-29] MEDS: CHLORHEXIDINE GLUCONATE 2 % 1 PACK (2 CLOTHS)(taper/protocol) TOPICAL SCH (03:23)
[2016-12-29] MEDS: ENOXAPARIN SODIUM 40 MG/0.4 ML SYRINGE SQ SCH (06:00)
[2016-12-29 06:28] LABS: APTT (PATIENT) 34.3 SEC (24.3-30.1)
[2016-12-29] MEDS: RESP: ALBUTEROL 2.5 MG/IPRATROPIUM 0.5 MG NEB (SCH) NEB ×3 (08:28→19:26)
[2016-12-29] MEDS: SODIUM CHLORIDE 0.9% FLUSH 10 ML FLUSH IV FLUSH SCH ×2 (09:00→21:00)
[2016-12-29] MEDS: METOPROLOL TARTRATE 25 MG TAB PO SCH (09:00)
[2016-12-29] MEDS: GABAPENTIN 300 MG CAP PO SCH ×3 (09:06→17:51)
[2016-12-29] MEDS: AZITHROMYCIN 250 MG TAB PO SCH (09:06)
[2016-12-29] MEDS: POTASSIUM CHLORIDE 20 MEQ CONTROLLED RELEASE TAB PO SCH (09:07)
[2016-12-29] MEDS: FUROSEMIDE 40 MG/4 ML VIAL IV PUSH SCH ×2 (09:07→17:51)
--- NOTE | 2016-12-29 10:25 | PD.CARD.PN ---
Subjective Subjective Remarks no complaints Objective Medications Current Medications Medications (Trade) Dose Ordered Sig/Vishal Route Start Time Stop Time Status Last Admin (NS Flush) 2 ml UNSCH PRN IV FLUSH 12/27/16 03:15 (NS Flush) 2 ml BID IV FLUSH 12/27/16 09:00 12/28/16 19:41 (Tylenol) 650 mg Q4H PRN PO 12/27/16 03:15 (Zofran Inj) 4 mg Q6H PRN IVP 12/27/16 03:15 12/27/16 15:20 (Lovenox Inj) 40 mg Q24H SQ 12/27/16 06:00 12/28/16 05:01 (Narcan Inj) 0.4 mg UNSCH PRN IV 12/27/16 03:15 (Lasix Inj) 40 mg BID@09,18 IV PUSH 12/27/16 09:00 12/29/16 09:07 Potassium Chloride 20 meq 20 meq DAILY PO 12/27/16 09:00 12/29/16 09:07 (Rocephin Inj/NS Inj) 100 ml @ 200 mls/hr Q24H IV 12/28/16 03:00 12/29/16 03:23 (Zithromax) 500 mg DAILY PO 12/27/16 09:00 12/29/16 09:06 (Neurontin) 900 mg TID PO 12/27/16 09:00 12/29/16 09:06 (Colbert 10-325 Mg) 1 tab Q6H PRN PO 12/27/16 03:15 12/28/16 19:41 (Prinivil) 10 mg BID PO 12/27/16 09:00 Hold 12/28/16 08:44 (Lopressor) 25 mg DAILY PO 12/27/16 09:00 12/27/16 09:39 Miscellaneous Information Patient in critical care unit? Ass... Q361D .XX 12/27/16 21:15 12/27/16 21:15 (Chlorhexidine 2% Cloth) 3 pack DAILY@04 TOPICAL 12/28/16 04:00 01/01/17 04:01 12/29/16 03:23 Chlorhexidine Gluconate 3 pack 3 pack UNSCH PRN TOPICAL 12/27/16 21:15 01/01/17 21:08 (Heparin-D5W Inj) 250 ml @ 0 mls/hr TITRATE IV 12/28/16 21:15 12/28/16 22:32 (Heparin Inj) 5,000 units UNSCH PRN IV 12/28/16 22:30 (Heparin Inj) 2,500 units UNSCH PRN IV 12/28/16 22:30 12/28/16 22:26 Vital Signs / I&O Vital Signs Date Time Temp Pulse Resp B/P Pulse Ox O2 Delivery O2 Flow Rate FiO2 12/29/16 10:00 110 12/29/16 08:28 96 Nasal Cannula 2.00 12/29/16 08:00 96.7 108 10 116/77 95 12/29/16 08:00 108 12/29/16 06:00 106 12/29/16 04:00 107 12/29/16 04:00 97.7 107 17 110/77 98 12/29/16 02:00 100 12/29/16 00:00 101 12/29/16 00:00 97.8 101 15 109/71 98 12/28/16 22:00 101 12/28/16 20:46 15 12/28/16 20:42 94 21 12/28/16 20:00 103 12/28/16 20:00 97.7 103 23 111/61 94 12/28/16 18:00 101 12/28/16 16:00 97.6 108 26 95/56 96 12/28/16 16:00 108 12/28/16 14:00 104 12/28/16 12:00 97.8 108 17 107/71 96 12/28/16 12:00 108 I/O 12/28/16 12/28/16 12/28/16 12/29/16 12/29/16 12/29/16 07:00 15:00 23:00 07:00 15:00 23:00 Intake Total 199 ml 810 ml 540 ml 192 ml Output Total 400 ml 1925 ml 450 ml 400 ml Balance -201 ml -1115 ml 90 ml -208 ml Intake Oral 100 ml 810 ml 540 ml IV Total 99 ml 0 ml 192 ml Output Urine Total 400 ml 1925 ml 450 ml 400 ml # Voids 3 3 # Bowel Movements 0 0 0 Physical Exam GENERAL: Well-nourished, well-developed patient. SKIN: Warm and dry. HEAD: Normocephalic. EYES: No scleral icterus. No injection or drainage. NECK: Supple, trachea midline. No JVD or lymphadenopathy. CARDIOVASCULAR: Regular rate and rhythm without murmurs, gallops, or rubs. RESPIRATORY: Breath sounds equal bilaterally. No accessory muscle use. GASTROINTESTINAL: Abdomen soft, non-tender, nondistended. EXTREMITIES: No cyanosis, +2 edema Left>Right NEUROLOGICAL: Awake, alert, and oriented x 3. Non-focal. Laboratory Laboratory Tests Test 12/28/16 12/29/16 21:30 05:50 White Blood Count 17.0 TH/MM3 Red Blood Count 4.63 MIL/MM3 Hemoglobin 12.3 GM/DL Hematocrit 40.0 % Mean Corpuscular Volume 86.4 FL Mean Corpuscular Hemoglobin 26.5 PG Mean Corpuscular Hemoglobin 30.7 % Concent Red Cell Distribution Width 16.2 % Platelet Count 332 TH/MM3 Mean Platelet Volume 9.1 FL Prothrombin Time 13.8 SEC Prothromb Time International 1.2 RATIO Ratio Activated Partial 26.2 SEC 34.3 SEC Thromboplast Time Imaging Last Impressions Chest X-Ray 12/27/16 0140 Signed Impressions: Service Date/Time: Tuesday, December 27, 2016 01:41 - CONCLUSION: Right greater than left pleural effusions and basilar consolidation. Delroy Scott MD Assessment and Plan Problem List: (1) CHF (congestive heart failure) Assessment and Plan: Severe LV systolic dysfunction LV thrombus Recommendations: Start Heparin Schedule for [facility] today (2) HTN (hypertension) (3) Bronchospasm (4) CAD (coronary artery disease), [place] coronary artery (5) PNA (pneumonia) Problem Qualifiers (1) CHF (congestive heart failure): Qualified Code: I50.9 - Acute congestive heart failure, unspecified congestive heart failure type (2) PNA (pneumonia): Qualified Code: J18.9 - Pneumonia of both lower lobes due to infectious organism Juan Palacios MD December 29, 2016 10:25
[2016-12-29] MEDS ORDERED: HEPARIN-NS/PF INJ 500 ML ONE (11:16)
[2016-12-29] MEDS ORDERED: MIDAZOLAM HCL 2 MG/2 ML VIAL ONE (11:16)
[2016-12-29] MEDS ORDERED: NITROGLYCERIN INJ 5 ML ONE (11:17)
[2016-12-29] MEDS ORDERED: VERAPAMIL HCL 5 MG/2 ML VIAL ONE (11:17)
--- NOTE | 2016-12-29 11:57 | CATHPROC ---
Case Rover HIS Report Study Information Study Number Scheduled Start Study Start [id number] 12/29/2016 Dec 29 2016 11:03AM Referring Institution Admit Source Facility Department 1 Other [facility] - Habilitative Interventionist Physician and Clinical Staff Initial Juan Joshua Director Of Assisted Living Gwendolyn Malik,HILDA Director Of Assisted Living Rupert Do,HILDA Recorder Gregorio Reyes,LINE SUPPLY(BS) Recorder Evita Grimes,ENGINEERING DRAFTER TECH2 Scrub Natasha Browning,RT(R) Procedures Performed Procedure Location (Site) Vessel Name Coronary Angiograms LCA Left Coronary Coronary Angiograms RCA Right Coronary L Heart Cath Equipment Time Library Circulation Department Chief Description Size Mfg Part Number Used/Scraped TRANSDUCER, TRUWAVE 11:07 SNOW MALIK * [id number] Used W/[employer] CONCEPT DRAPE, RADIAL FEMORAL FULL 11:07 * [id number] Used DEVELOPMENT BODY 11:07 [employer] PACK, CCL CUSTOM * [id number] Used 11:07 [employer] SUPPORT, ARTERIAL ADULT [id number] Used 11:07 [place]lee WIRE, 3MMJ .035 180CM 180CM [id number] Used 11:07 NAMIC MANIFOLD, 4 PORT * [id number] Used 11:07 NYCOMED OMNIPAQUE, 350 MG, 100ML 100ML [id number] Used 11:40 NYCOMED OMNIPAQUE, 350 MG, 150ML 150ML [id number] Used 11:07 [facility] BLANKET,WARM AIR CCL * [id number] Used BAND, RADIAL COMPRESSION TR 11:07 [employer] 29CM XX*[id number] Used LARGE SHEATH, FR6 TRANSRADIAL 11:07 [employer] FR 6 RM*[id number] Used SLENDER 10CM History: Allergies Allergy Reaction Ibuprofen Nausea/Vomiting Levaquin EDEMA Ultram ITCHING History: Risk Factors Family History of Hypertension Dyslipidemia Previous AL Previous Heart Failure Premature CAD Yes Yes No No Yes Prior Valve Prior PCI Prior CABG Surgery No No No Cerebrovascular Peripheral Artery Chronic Lung On Dialysis Diabetes Disease Disease Disease No No No No No History: Symptoms/Diagnosis Selection Items SOB History: Stress Tests Stress or Imaging Studies Performed No History: Other Disease Selection Items CHF History: Other Current Smoker Method Packs a Day Years Used Pack Years Yes Cigarettes 1 35 35 Labs Hgb (g/dl) Hct (%) WBC (l/cumm) Platelets (thousands) 12.00-18.00 37.00-55.00 4.80-10.80 140.00-450.00 12.3 40 17 332 Glucose (mg/dl) BUN (mg/dl) Creatinine (mg/dl) BUN:Creatinine (1:x) 60.00-110.00 8.00-20.00 0.10-9.00 10.00-20.00 77 41 1.5 27.3 Na (meq/l) K (meq/l) 138.00-146.00 3.80-5.10 136 4.5 INR (PTT:PT) 0.50-2.00 1.2 Medication Medication Total Dose (Bolus/Oral) Medication Total Dosage/Unit 1% XYLOCAINE 20 mL FENTANYL 50 mcg RADIAL COCKTAIL 5 mL (Bolus) VERSED 2 mg Medications (Bolus/Oral) Medication Time Given Dosage/Unit Administered By Reason VERSED 12/29/2016 11:36:35 AM 2 mg Gwendolyn Malik 2 mg VERSED given in lab by Gwendolyn Malik RN in Left Antecubital via Peripheral IV. Ordered by Juan Patel. FENTANYL 12/29/2016 11:37:16 AM 50 mcg Gwendolyn Malik 50 mcg FENTANYL given in lab by Gwendolyn Malik RN in Left Antecubital via Peripheral IV. Ordered by Juan Palacios. 1% XYLOCAINE 12/29/2016 11:37:49 AM 20 mL Juan Palacios 20 mL 1% XYLOCAINE given in lab by Juan Palacios in Right Radial via Subcutaneous. Ordered by Juan Hagan. Ntg 200mcg Verapamil 2.5mg Heparin RADIAL COCKTAIL 12/29/2016 11:38:21 AM 5 mL (Bolus) Juan Palacios 2000U 5 mL (Bolus) RADIAL COCKTAIL given in lab by Juan Palacios via Radial. Using [Solution Name]. Ord ered by Juan Palacios. Reason: Ntg 200mcg Verapamil 2.5mg Medication (Drip) Medication Time Given Dosage/Unit Concentration/Unit Diluent (ml) Solution IV Solutions 12/29/2016 11:07:27 AM 0 mL (IV) 500 NaCl .9 IV Solutions given in lab by Gwendolyn Malik RN in Left Antecubital via Peripheral IV. Pump/Drip F low = 20 ml/hr using NaCl .9. Ordered by Juan Edwards. Initial Case Assessment Cardiovascular HR Rhythm NIBP Chest Pain 105 SR W AV BLOCK 103/69 0 Edema Present Skin color Skin None Normal Warm Dry Circulatory - Right Pulses Dorsalis Pedis Posterior Tibial Femoral Radial 1 1 1 1 Scale (0,1,2,3,4,d) Circulatory - Left Pulses Dorsalis Pedis Posterior Tibial Femoral Radial 1 1 1 Scale (0,1,2,3,4,d) Circulatory - Lower Extremities Color Lower Right Color Lower Left Normal Normal Neurological State Oriented to time-place- Alert Moves all extremities person Respiration - General Respiration Rate SpO2 (%) O2 (lpm) (B/min) 20 100 2 Final Case Assessment Cardiovascular HR Rhythm NIBP Chest Pain 105 SR W AV BLOCK 101/69 0 Edema Present Skin color Skin None Normal Warm Dry Circulatory - Right Pulses Dorsalis Pedis Posterior Tibial Femoral Radial 1 1 1 1 Scale (0,1,2,3,4,d) Circulatory - Left Pulses Dorsalis Pedis Posterior Tibial Femoral Radial 1 1 1 Scale (0,1,2,3,4,d) Circulatory - Lower Extremities Color Lower Right Color Lower Left Normal Normal Neurological State Oriented to time-place- Alert Moves all extremities person Respiration - General Respiration Rate SpO2 (%) O2 (lpm) (B/min) 14 92 2 Chronological Log Time Study Chronological Log 11:07:13 Patient arrived via Bed. 11:07:14 Patient Name, D.O.B, / Armband Verified By R.N. 11:07:14 Consent signed by the physician and the patient and verified by the Habilitative Interventionist staff. 11:07:16 Pre-op and post- op instructions given; patient acknowledges understanding of instructions. 11:07:16 Verbal Stimulation=2 Physical Stimulation=2 Airway=2 Respiration=1 TOTAL=7. (0=absent, 1=li mited, 2=present) 11:07:19 Allens test performed on the right radial and ulnar artery. 11:07:21 Patient has been NPO for Less than 6Hrs. 11:07:22 Skin Breakdown. 11:07:23 A # 22 IV was noted in the Forearm (left). Grade = 0 11:07:23 Patient Warmer Placed on the Table. 11:07:26 A # 18 IV was noted in the Antecubital (left). Grade = 0 IV Solutions given in lab by Gwendolyn Malik RN in Left Antecubital via Peripheral IV. Pump/ Drip Flow = 20 ml/hr 11::27 using NaCl .9. Ordered by Juan Palacios. 11:07:27 History and physical on the chart or being dictated. Assessment: Initial Case, XB=051 BPM, Rhythm=SR W AV BLOCK, TCVF=387/69 mmhg, Chest Pain=0, Ye ma=None, Color=Normal, Skin = Warm, Dry Right Pulses: Fran Ped=1, Post Tib=1, Femoral=1, Radial=1 Left Pulses: Fran Ped=1, Post Tib=1, Femoral=1 11:07:28 Lower Right Extremities: Color=Normal Lower Left Extremities: Color=Normal Neurological: State=Alert, Ox3, DONNELLY Respiration: Resp=20 B/min, XjF9=314 %, O2=2 lpm Vitals capture started with the following parameters, Patient=Adult, Interval=5 min, Initial Pr wxjnsm=483 mmHg, 11:16:28 Deflation Rate=5 mmHg 11:17:06 SO=494 bpm, VSFW=400/70 mmhg, SpO2=98.0 %, Resp=14 B/min, Pain=0, Jocelyne=10, Lieberman=1 11:21:57 MJ=796 bpm, CCZS=551/69 mmhg, FtT8=997.0 %, Resp=14 B/min, Pain=0, Jocelyne=10, Lieberman=1 11:22:57 Reference ECG taken 11:26:56 XU=569 bpm, ISLF=641/70 mmhg, NcW6=902 %, Resp=13 B/min, Pain=0, Jocelyne=10, Lieberman=1 11:32:01 BB=456 bpm, LFRM=145/50 mmhg, JmU1=084.0 %, Resp=16 B/min, Pain=0, Jocelyne=10, Lieberman=1 11:33:53 Pressure channel 1 zeroed. 11:36:00 Right Radial and groin(s) prepped with 2% chlorhexidine, and with a 3 min. waiting time. 11:36:07 MD arrived. Time Out. Correct patient, correct procedure,correct physician, power injector not loaded with contrast with surgical 11:36:22 team present. Time Out Concurred by , individual staff in procedure 2 mg VERSED given in lab by Gwendolyn Malik, HILDA in Left Antecubital via Peripheral IV. Ordere d by Philip, 11:36:35 Juan. 11:36:56 ZP=381 bpm, USLG=354/73 mmhg, DmF8=481.0 %, Resp=11 B/min, Pain=0, Jocelyne=10, Lieberman=1 50 mcg FENTANYL given in lab by Gwendolyn Malik, HILDA in Left Antecubital via Peripheral IV. Or dered by Philip, 11:37:16 Juan. 20 mL 1% XYLOCAINE given in lab by Juan Palacios in Right Radial via Subcutaneous. Ordered by Philip, 11:37:49 Juan. 11:37:56 Access site was RIGHT Radial Artery. A SHEATH, FR6 TRANSRADIAL SLENDER 10CM FR 6 was advanced into the Radial (right) using the Perc utaneous 11:38:10 technique. 5 mL (Bolus) RADIAL COCKTAIL given in lab by Juan Palacios via Radial. Using [Solution Name ]. Ordered by Anish 11:38:21 Juan Werner. Reason: Ntg 200mcg Verapamil 2.5mg A JR 4.0 INFINITI CATHETER FR 5 was advanced over a wire. OMNIPAQUE, 350 MG, 150ML 150ML was us ed for 11:39:14 injections. 11:40:44 The RCA was injected and visualized at various angles. contrast used. After removing the current catheter a JL 3.5 INFINITI CATHETER FR 5 was advanced over a WIRE, 3 MMJ .035 180CM 11:41:54 180CM. OMNIPAQUE, 350 MG, 150ML 150ML was used for injections. 11:41:57 UV=180 bpm, ITCE=569/66 mmhg, SpO2=99.0 %, Resp=16 B/min, Pain=0, Jocelyne=10, Lieberman=1 11:42:14 Pressure channel 1 zeroed. 11:42:45 The Recorder is being relieved by Evita Grimes, ENGINEERING DRAFTER TECH2. Recorded Pressure: Ao, UP=525, Condition=Condition 1 11:43:57 (Aorta) Ao 103/80/89 11:44:19 The LCA was injected and visualized at various angles. OMNIPAQUE, 350 MG, 150ML 150ML used . 11:46:05 Catheter was removed 11:46:15 Case End 11:47:33 TE=360 bpm, RLNJ=719/67 mmhg, SpO2=98.0 %, Resp=10 B/min, Pain=0, Jocelyne=10, Lieberman=1 11:47:50 Catheter(s) removed without difficulty 11:51:15 Radial Compression Device Used. 11:51:39 No case complications noted. 11:51:47 Cine recording checked. 11:51:50 Bedside Report will be given. 11:51:54 Contrast Scanned 11:51:58 A Left Heart Cath was performed. 11:52:01 MT=228 bpm, GMLS=164/69 mmhg, SpO2=92.0 %, Resp=14 B/min, Pain=0, Jocelyne=10, Lieberman=1 11:52:04 Patient moved to stretcher 11:52:16 Vitals capture stopped. Assessment: Final Case, HY=173 BPM, Rhythm=SR W AV BLOCK, HLGH=962/69 mmhg, Chest Pain=0, Tez a=None, Color=Normal, Skin = Warm, Dry Right Pulses: Fran Ped=1, Post Tib=1, Femoral=1, Radial=1 Left Pulses: Fran Ped=1, Post Tib=1, Femoral=1 11:52:50 Lower Right Extremities: Color=Normal Lower Left Extremities: Color=Normal Neurological: State=Alert, Ox3, DONNELLY Respiration: Resp=14 B/min, SpO2=92 %, O2=2 lpm End Study - Contrast Media Used In Study Contrast Total Opened (mL) Total Used (mL) Total Wasted (mL) Omnipaque 30 30 0 End Study - Maximum Contrast Load Max Contrast Load (mL) 286.1 End Study - Radiation Exposure Fluoro Time (minutes) 1.8 End Study - Patient Disposition Complications Transferred To No Critical Care Bed
[2016-12-29] MEDS ORDERED: MISC INFORMATION XX ONE (12:00)
--- NOTE | 2016-12-29 12:22 | MA ---
cc: DEDRICK MALDONADO DATE 12/29/2016 DATE OF 1965 PROCEDURE PERFORMED 1. Left heart catheterization 2. Selective right and left coronary angiography INDICATION New-onset LV dysfunction, [place] [employer] for/ischemic evaluation APPROACH Right transradial DESCRIPTION OF PROCEDURE Consent signed. The patient was brought into the cardiac laborer brooder farm in fasting state. The right wrist was prepped and draped in sterile fashion using 1% lidocaine for local anesthesia. A micropuncture kit, a 6-Dominican sheath was inserted into the right radial artery. Antispasmodic cocktail given then selective right and left coronary angiography was performed with a JR-4 and JL- 3.5 diagnostic catheters. Catheters were exchanged over a wire. Angiography was taken in multiple views. The patient tolerated the procedure well without complications. Estimated blood loss less than 30 cc. Total contrast used 50 cc. Of note, we did not perform an LV gram or enter the ventricle due to the echocardiogram showing an LV thrombus. ANGIOGRAPHIC RESULTS 1. Right coronary artery is a dominant vessel giving off the PDA. The vessel is at least a 4 mm vessel proximally. Its has minimal luminal irregularities and nonobstructive coronary artery disease. 2. Left main is patent with LEONEL-III flow. 3. LAD. It has minimal luminal irregularities throughout. It is a transapical vessel. There is a 20% lesion in the proximal segment. The LAD has two main diagonals. The second diagonal before it gets into the three other side branches, these diagonals have nonobstructive coronary artery disease. 4.The left circumflex artery has minimal luminal irregularities. It has two main OM branches which are patent with nonobstructive coronary artery disease and there is a small AV groove circ. CONCLUSION 1. Nonobstructive coronary artery disease. 2. Nonischemic cardiomyopathy. RECOMMENDATIONS 1. Continue aggressive medical management for nonischemic cardiomyopathy. 2. Continue beta-blockers and JAEL inhibitors. 3. Continue on anticoagulation for the LV thrombus. 4. LifeVest upon discharge MD ALESSANDRO Murillo/IKE /11:56 AM /12:15 PM [facility]ort[facility]
--- NOTE | 2016-12-29 12:31 | HHI.PR ---
Subjective Remarks This is a 51-year-old male who has Asthma and Hypertension, who came to ER with bilateral lower extremity edema Shortness of breath he was admitted with diagnosis of newly CHF exacerbation, during the day of admission he had Hypotension was transferred to Intensive Care Unit, given IV fluids and improved. at this time continued on diuresis. also due to new Ventricular thrombus started on Heparin drip. Objective Vital Signs Date Time Temp Pulse Resp B/P Pulse Ox O2 Delivery O2 Flow Rate FiO2 12/29/16 10:00 110 12/29/16 08:28 96 Nasal Cannula 2.00 12/29/16 08:00 96.7 108 10 116/77 95 12/29/16 08:00 108 12/29/16 06:00 106 12/29/16 04:00 107 12/29/16 04:00 97.7 107 17 110/77 98 12/29/16 02:00 100 12/29/16 00:00 101 12/29/16 00:00 97.8 101 15 109/71 98 12/28/16 22:00 101 12/28/16 20:46 15 12/28/16 20:42 94 21 12/28/16 20:00 103 12/28/16 20:00 97.7 103 23 111/61 94 12/28/16 18:00 101 12/28/16 16:00 97.6 108 26 95/56 96 12/28/16 16:00 108 12/28/16 14:00 104 I/O 12/28/16 12/28/16 12/28/16 12/29/16 12/29/16 12/29/16 07:00 15:00 23:00 07:00 15:00 23:00 Intake Total 199 ml 810 ml 540 ml 192 ml Output Total 400 ml 1925 ml 450 ml 400 ml Balance -201 ml -1115 ml 90 ml -208 ml Intake Oral 100 ml 810 ml 540 ml IV Total 99 ml 0 ml 192 ml Output Urine Total 400 ml 1925 ml 450 ml 400 ml # Voids 3 3 # Bowel Movements 0 0 0 Result Diagram: 12/28/16 2130 12/28/16 0606 Imaging Last Impressions Chest X-Ray 12/27/16 0140 Signed Impressions: Service Date/Time: Tuesday, December 27, 2016 01:41 - CONCLUSION: Right greater than left pleural effusions and basilar consolidation. Delroy Scott MD Procedures No procedures performed. Other Results Laboratory Tests Test 12/27/16 12/27/16 12/27/16 12/27/16 01:50 05:05 18:44 20:00 Differential Total Cells 100 Counted Neutrophils % (Manual) 57 % Lymphocytes % 33 % Monocytes % 5 % Eosinophils % 5 % Neutrophils # (Manual) 8.7 TH/MM3 Platelet Estimate NORMAL Platelet Morphology Comment ENLARGED Creatine Kinase MB 10.6 NG/ML Lactic Acid Level 2.1 mmol/L Blood Gas Puncture Site RT RADIAL Blood Gas Patient Temperature 98.6 Blood Gas HCO3 23 mmol/L Blood Gas Base Excess -1.4 mmol/L Blood Gas Oxygen Saturation 96 % Arterial Blood pH 7.35 Arterial Blood Partial 44 mmHg Pressure CO2 Arterial Blood Partial 120 mmHg Pressure O2 Arterial Blood Oxygen Content 17.1 Vol % Arterial Blood 1.5 % Carboxyhemoglobin Arterial Blood Methemoglobin 0.6 % Blood Gas Hemoglobin 12.6 G/DL Oxygen Delivery Device NASAL CANNULA Blood Gas Liter Flow 5 L/M Troponin I 0.06 NG/ML Nasal Screen MRSA (PCR) MRSA NOT DETECTED Test 12/28/16 12/28/16 12/28/16 12/28/16 06:06 06:19 06:20 21:30 Sodium Level 136 MEQ/L Potassium Level 4.5 MEQ/L Chloride Level 101 MEQ/L Carbon Dioxide Level 23.9 MEQ/L Anion Gap 11 MEQ/L Blood Urea Nitrogen 41 MG/DL Creatinine 1.55 MG/DL Estimat Glomerular Filtration 47 ML/MIN Rate Random Glucose 77 MG/DL Calcium Level 8.1 MG/DL Magnesium Level 2.3 MG/DL Total Creatine Kinase 202 U/L Neutrophils (%) (Auto) 65.6 % Lymphocytes (%) (Auto) 22.0 % Monocytes (%) (Auto) 7.1 % Eosinophils (%) (Auto) 4.3 % Basophils (%) (Auto) 1.0 % Neutrophils # (Auto) 8.7 TH/MM3 Lymphocytes # (Auto) 2.9 TH/MM3 Monocytes # (Auto) 0.9 TH/MM3 Eosinophils # (Auto) 0.6 TH/MM3 Basophils # (Auto) 0.1 TH/MM3 CBC Comment DIFF FINAL Differential Comment B-Type Natriuretic Peptide 1624 PG/ML White Blood Count 17.0 TH/MM3 Red Blood Count 4.63 MIL/MM3 Hemoglobin 12.3 GM/DL Hematocrit 40.0 % Mean Corpuscular Volume 86.4 FL Mean Corpuscular Hemoglobin 26.5 PG Mean Corpuscular Hemoglobin 30.7 % Concent Red Cell Distribution Width 16.2 % Platelet Count 332 TH/MM3 Mean Platelet Volume 9.1 FL Prothrombin Time 13.8 SEC Prothromb Time International 1.2 RATIO Ratio Test 12/29/16 05:50 Activated Partial 34.3 SEC Thromboplast Time Objective Remarks GENERAL: This is a well-nourished, well-developed patient. SKIN: No rashes, ecchymoses or lesions. Cool and dry. HEAD: Atraumatic. Normocephalic. No temporal or scalp tenderness. EYES: Extraocular motions intact. No scleral icterus. No injection or drainage. CARDIOVASCULAR: Tachycardic without murmurs, gallops, or rubs. Positive JVD RESPIRATORY: Bilateral basilar crackles noted GASTROINTESTINAL: Abdomen soft, non-tender, MUSCULOSKELETAL: Bilateral lower extremity edema 1-2+, No calf tenderness. Negative Homans sign bilaterally. NEUROLOGICAL: Awake and alert. Medications and IVs Current Medications Medications (Trade) Dose Ordered Sig/Vishal Route Start Time Stop Time Status Last Admin (NS Flush) 2 ml UNSCH PRN IV FLUSH 12/27/16 03:15 (NS Flush) 2 ml BID IV FLUSH 12/27/16 09:00 12/28/16 19:41 (Tylenol) 650 mg Q4H PRN PO 12/27/16 03:15 (Zofran Inj) 4 mg Q6H PRN IVP 12/27/16 03:15 12/27/16 15:20 (Narcan Inj) 0.4 mg UNSCH PRN IV 12/27/16 03:15 (Lasix Inj) 40 mg BID@09,18 IV PUSH 12/27/16 09:00 12/29/16 09:07 Potassium Chloride 20 meq 20 meq DAILY PO 12/27/16 09:00 12/29/16 09:07 (Rocephin Inj/NS Inj) 100 ml @ 200 mls/hr Q24H IV 12/28/16 03:00 12/29/16 03:23 (Zithromax) 500 mg DAILY PO 12/27/16 09:00 12/29/16 09:06 (Neurontin) 900 mg TID PO 12/27/16 09:00 12/29/16 09:06 ([place] 10-325 Mg) 1 tab Q6H PRN PO 12/27/16 03:15 12/28/16 19:41 (Prinivil) 10 mg BID PO 12/27/16 09:00 Hold 12/28/16 08:44 (Lopressor) 25 mg DAILY PO 12/27/16 09:00 12/27/16 09:39 Miscellaneous Information Patient in critical care unit? Ass... Q361D .XX 12/27/16 21:15 12/27/16 21:15 (Chlorhexidine 2% Cloth) 3 pack DAILY@04 TOPICAL 12/28/16 04:00 01/01/17 04:01 12/29/16 03:23 (Chlorhexidine 2% Cloth) 3 pack UNSCH PRN TOPICAL 12/27/16 21:15 01/01/17 21:08 A/P Assessment and Plan 1. New onset congestive heart failure- electronic specialist Following, Severe Left Ventricular Dysfunction initial BNP 2445, on diuretics with Lasix, at this time in intensive Care unit, CXR on admission moderate Right and a small left pleural effusion, bibasilar consolidation. Mild Cardiomegaly, electronic specialist following Doctor Juan Palacios. Echocardiogram Large Left Ventricular Apical thrombus, dilated LV, Left Ventricular Hypertrophy, EF 20%, LA mildly dilated, 2. Left Ventricular Thrombus on Heparin scheduled for Left Heart Catheterization today. 3. Hypertension controlled. 4. Bronchospasm improved. 5. Pneumonia on Ceftriaxone and Azithromycin. DVT prophylaxis Heparin. Code Status Full Code. Discussed Condition With Patient and nurse Seen in intensive Care Unit. More than 35 minutes spent in this case today. Discharge Planning Not yet cleared for discharge Gui Ribeiro MD December 29, 2016 12:31 Continue lisinopril 10 mg twice a day and metoprolol 25 mg daily Continue to monitor trend Elevated troponin 0.06- likely secondary to CHF will rule out ACS Serial troponin and serial EKGs DVT prophylaxis with Lovenox Discussed with the ER provider, nursing and patient Seen in the room and evaluated discussed with his , plan of care discussed with patient and his consulted electronic specialist. following recommendations. Code Status Full Code. Discussed Condition With Gui Ribeior MD December 29, 2016 12:31
[2016-12-29 13:12] LABS: APTT (PATIENT) 32.4 SEC (24.3-30.1)
[2016-12-29] MEDS ORDERED: IOHEXOL 350 MG/ML 100 ML BTL (for Cath Lab) OTHER ONE (15:43)
[2016-12-29 21:15] LABS: APTT (PATIENT) 31.7 SEC (24.3-30.1)
[2016-12-30] VITALS (25 sets, daily range): BP systolic 100–128; BP diastolic 62–81; PULSE 95–116; RESP 12–18; TEMP 96.4–98; O2SAT 94–100
[2016-12-30] MEDS: HEPARIN SODIUM - IV 10,000 UNITS/10 ML VIAL IV PRN (00:25)
[2016-12-30] MEDS ORDERED: HEPARIN SODIUM - IV 10,000 UNITS/10 ML VIAL IV PRN (00:30)
[2016-12-30] MEDS: HEPARIN-D5W INJ 250 ML IV SCH ×2 (00:36→21:04)
[2016-12-30] MEDS: cefTRIAXone INJ 1,000 MG in SODIUM CHLORIDE 0.9% INJ 100 ML IV SCH (03:58)
[2016-12-30] MEDS: ACETAMINOPHEN/HYDROcodone 325 MG/10 MG TAB PO PRN ×2 (03:58→17:01)
[2016-12-30] MEDS: CHLORHEXIDINE GLUCONATE 2 % 1 PACK (2 CLOTHS)(taper/protocol) TOPICAL SCH (04:00)
[2016-12-30 06:39] LABS: APTT (PATIENT) 44.6 SEC (24.3-30.1)
--- NOTE | 2016-12-30 07:58 | HHI.PR ---
Subjective Remarks This is a 51-year-old male who has Asthma and Hypertension, who came to ER with bilateral lower extremity edema Shortness of breath he was admitted with diagnosis of newly CHF exacerbation, during the day of admission he had Hypotension was transferred to Intensive Care Unit, given IV fluids and improved. at this time continued on diuresis. also due to new Ventricular thrombus started on Heparin drip. 12/30: Patient seen in his bedroom in the presence of his Mrs. Karen Tineo , they have information directly from eye specialist and because of Left Ventricular thrombus he will need to continue JAEL inhibitors, Started on Coumadin, continue diuresis and Encourage ambulation, LifeVest at discharge, no nausea, vomit or diarrhea, no Chest pain. Objective Vital Signs Date Time Temp Pulse Resp B/P Pulse Ox O2 Delivery O2 Flow Rate FiO2 12/30/16 04:00 96.4 107 12 100/62 94 12/30/16 00:00 96.6 111 12 113/78 100 12/29/16 20:00 98.7 106 12 98/63 96 12/29/16 19:28 98 Nasal Cannula 2.00 12/29/16 19:00 108 12/29/16 18:00 106 12/29/16 17:00 108 12/29/16 16:00 110 12/29/16 16:00 97.6 104 12 104/67 98 12/29/16 15:30 98.2 110 16 119/74 98 12/29/16 15:00 113 12/29/16 12:00 110 12/29/16 12:00 97.6 106 13 104/69 97 12/29/16 10:00 110 12/29/16 08:28 96 Nasal Cannula 2.00 12/29/16 08:00 96.7 108 10 116/77 95 12/29/16 08:00 108 I/O 12/29/16 12/29/16 12/29/16 12/30/16 12/30/16 12/30/16 07:00 15:00 23:00 07:00 15:00 23:00 Intake Total 192 ml 480 ml 606 ml Output Total 400 ml 900 ml 1000 ml Balance -208 ml -420 ml -394 ml Intake Oral 480 ml 480 ml IV Total 192 ml 126 ml Output Urine Total 400 ml 900 ml 1000 ml # Voids 2 # Bowel Movements 0 0 Result Diagram: 12/28/16 2130 12/28/16 0606 Imaging Last Impressions Chest X-Ray 12/27/16 0140 Signed Impressions: Service Date/Time: Tuesday, December 27, 2016 01:41 - CONCLUSION: Right greater than left pleural effusions and basilar consolidation. Delroy Scott MD Procedures Cardiac Cath non Non obstructive CAD, Non ischemic Cardiomyopathy Other Results Laboratory Tests Test 12/27/16 12/27/16 12/27/16 12/27/16 01:50 05:05 18:44 20:00 Differential Total Cells 100 Counted Neutrophils % (Manual) 57 % Lymphocytes % 33 % Monocytes % 5 % Eosinophils % 5 % Neutrophils # (Manual) 8.7 TH/MM3 Platelet Estimate NORMAL Platelet Morphology Comment ENLARGED Creatine Kinase MB 10.6 NG/ML Lactic Acid Level 2.1 mmol/L Blood Gas Puncture Site RT RADIAL Blood Gas Patient Temperature 98.6 Blood Gas HCO3 23 mmol/L Blood Gas Base Excess -1.4 mmol/L Blood Gas Oxygen Saturation 96 % Arterial Blood pH 7.35 Arterial Blood Partial 44 mmHg Pressure CO2 Arterial Blood Partial 120 mmHg Pressure O2 Arterial Blood Oxygen Content 17.1 Vol % Arterial Blood 1.5 % Carboxyhemoglobin Arterial Blood Methemoglobin 0.6 % Blood Gas Hemoglobin 12.6 G/DL Oxygen Delivery Device NASAL CANNULA Blood Gas Liter Flow 5 L/M Troponin I 0.06 NG/ML Nasal Screen MRSA (PCR) MRSA NOT DETECTED Test 12/28/16 12/28/16 12/28/16 12/28/16 06:06 06:19 06:20 21:30 Sodium Level 136 MEQ/L Potassium Level 4.5 MEQ/L Chloride Level 101 MEQ/L Carbon Dioxide Level 23.9 MEQ/L Anion Gap 11 MEQ/L Blood Urea Nitrogen 41 MG/DL Creatinine 1.55 MG/DL Estimat Glomerular Filtration 47 ML/MIN Rate Random Glucose 77 MG/DL Calcium Level 8.1 MG/DL Magnesium Level 2.3 MG/DL Total Creatine Kinase 202 U/L Neutrophils (%) (Auto) 65.6 % Lymphocytes (%) (Auto) 22.0 % Monocytes (%) (Auto) 7.1 % Eosinophils (%) (Auto) 4.3 % Basophils (%) (Auto) 1.0 % Neutrophils # (Auto) 8.7 TH/MM3 Lymphocytes # (Auto) 2.9 TH/MM3 Monocytes # (Auto) 0.9 TH/MM3 Eosinophils # (Auto) 0.6 TH/MM3 Basophils # (Auto) 0.1 TH/MM3 CBC Comment DIFF FINAL Differential Comment B-Type Natriuretic Peptide 1624 PG/ML White Blood Count 17.0 TH/MM3 Red Blood Count 4.63 MIL/MM3 Hemoglobin 12.3 GM/DL Hematocrit 40.0 % Mean Corpuscular Volume 86.4 FL Mean Corpuscular Hemoglobin 26.5 PG Mean Corpuscular Hemoglobin 30.7 % Concent Red Cell Distribution Width 16.2 % Platelet Count 332 TH/MM3 Mean Platelet Volume 9.1 FL Prothrombin Time 13.8 SEC Prothromb Time International 1.2 RATIO Ratio Test 12/30/16 05:35 Activated Partial 44.6 SEC Thromboplast Time Objective Remarks GENERAL: This is a well-nourished, well-developed patient. SKIN: No rashes, ecchymoses or lesions. Cool and dry. HEAD: Atraumatic. Normocephalic. No temporal or scalp tenderness. EYES: Extraocular motions intact. No scleral icterus. No injection or drainage. CARDIOVASCULAR: Tachycardic without murmurs, gallops, or rubs. Positive JVD RESPIRATORY: Bilateral basilar crackles noted GASTROINTESTINAL: Abdomen soft, non-tender, MUSCULOSKELETAL: Bilateral lower extremity edema 1-2+, No calf tenderness. Negative Homans sign bilaterally. NEUROLOGICAL: Awake and alert. Medications and IVs Current Medications Medications (Trade) Dose Ordered Sig/Vishal Route Start Time Stop Time Status Last Admin (NS Flush) 2 ml UNSCH PRN IV FLUSH 12/27/16 03:15 (NS Flush) 2 ml BID IV FLUSH 12/27/16 09:00 12/29/16 21:00 (Tylenol) 650 mg Q4H PRN PO 12/27/16 03:15 (Zofran Inj) 4 mg Q6H PRN IVP 12/27/16 03:15 12/27/16 15:20 (Narcan Inj) 0.4 mg UNSCH PRN IV 12/27/16 03:15 (Lasix Inj) 40 mg BID@09,18 IV PUSH 12/27/16 09:00 12/29/16 17:51 Potassium Chloride 20 meq 20 meq DAILY PO 12/27/16 09:00 12/29/16 09:07 (Rocephin Inj/NS Inj) 100 ml @ 200 mls/hr Q24H IV 12/28/16 03:00 12/30/16 03:58 (Zithromax) 500 mg DAILY PO 12/27/16 09:00 12/29/16 09:06 (Neurontin) 900 mg TID PO 12/27/16 09:00 12/29/16 17:51 ([place] 10-325 Mg) 1 tab Q6H PRN PO 12/27/16 03:15 12/30/16 03:58 (Prinivil) 10 mg BID PO 12/27/16 09:00 Hold 12/28/16 08:44 (Lopressor) 25 mg DAILY PO 12/27/16 09:00 12/27/16 09:39 Miscellaneous Information Patient in critical care unit? Ass... Q361D .XX 12/27/16 21:15 12/27/16 21:15 (Chlorhexidine 2% Cloth) 3 pack DAILY@04 TOPICAL 12/28/16 04:00 01/01/17 04:01 12/29/16 03:23 Chlorhexidine Gluconate 3 pack 3 pack UNSCH PRN TOPICAL 12/27/16 21:15 01/01/17 21:08 (Heparin-D5W Inj) 250 ml @ 0 mls/hr TITRATE IV 12/30/16 00:30 12/30/16 00:36 (Heparin Inj) 5,000 units UNSCH PRN IV 12/30/16 00:30 (Heparin Inj) 2,500 units UNSCH PRN IV 12/30/16 00:30 12/30/16 00:25 A/P Assessment and Plan 1. New onset congestive heart failure- eye specialist Following, Severe Left Ventricular Dysfunction initial BNP 2445, on diuretics with Lasix, at this time in intensive Care unit, CXR on admission moderate Right and a small left pleural effusion, bibasilar consolidation. Mild Cardiomegaly, eye specialist following Doctor Juan Palacios. Echocardiogram Large Left Ventricular Apical thrombus, dilated LV, Left Ventricular Hypertrophy, EF 20%, LA mildly dilated, as per eye specialist recommended JAEL inhibitors, Started on Coumadin, continue diuresis and Encourage ambulation, LifeVest at discharge. 2. Left Ventricular Thrombus read #1. 3. Hypertension controlled. 4. Bronchospasm improved. 5. Pneumonia on Ceftriaxone and Azithromycin. continue present care and follow laboratory in am tomorrow. 6. Acute Kidney injury improved. DVT prophylaxis Heparin and Coumadin. Code Status Full Code. Discussed Condition With Patient and his Mrs. Karen Tineo all questions answered to the best of my abilities. Discharge Planning Not yet cleared for discharge Gui Ribeiro MD December 30, 2016 07:58
[2016-12-30] MEDS: SODIUM CHLORIDE 0.9% FLUSH 10 ML FLUSH IV FLUSH SCH ×2 (09:00→21:00)
[2016-12-30] MEDS: POTASSIUM CHLORIDE 20 MEQ CONTROLLED RELEASE TAB PO SCH (09:00)
[2016-12-30] MEDS: GABAPENTIN 300 MG CAP PO SCH ×3 (09:23→17:01)
[2016-12-30] MEDS: METOPROLOL TARTRATE 25 MG TAB PO SCH (09:23)
[2016-12-30] MEDS: AZITHROMYCIN 250 MG TAB PO SCH (09:23)
--- NOTE | 2016-12-30 09:53 | PD.CARD.PN ---
Subjective Subjective Remarks no CV complaints s/p [facility] doing well Objective Medications Current Medications Medications (Trade) Dose Ordered Sig/Vishal Route Start Time Stop Time Status Last Admin (NS Flush) 2 ml UNSCH PRN IV FLUSH 12/27/16 03:15 (NS Flush) 2 ml BID IV FLUSH 12/27/16 09:00 12/30/16 09:00 (Tylenol) 650 mg Q4H PRN PO 12/27/16 03:15 (Zofran Inj) 4 mg Q6H PRN IVP 12/27/16 03:15 12/27/16 15:20 (Narcan Inj) 0.4 mg UNSCH PRN IV 12/27/16 03:15 (Lasix Inj) 40 mg BID@09,18 IV PUSH 12/27/16 09:00 Hold 12/29/16 17:51 Potassium Chloride 20 meq 20 meq DAILY PO 12/27/16 09:00 12/30/16 09:00 (Rocephin Inj/NS Inj) 100 ml @ 200 mls/hr Q24H IV 12/28/16 03:00 12/30/16 03:58 (Zithromax) 500 mg DAILY PO 12/27/16 09:00 12/30/16 09:23 (Neurontin) 900 mg TID PO 12/27/16 09:00 12/30/16 09:23 ([place] 10-325 Mg) 1 tab Q6H PRN PO 12/27/16 03:15 12/30/16 03:58 (Prinivil) 10 mg BID PO 12/27/16 09:00 Hold 12/28/16 08:44 (Lopressor) 25 mg DAILY PO 12/27/16 09:00 12/30/16 09:23 Miscellaneous Information Patient in critical care unit? Ass... Q361D .XX 12/27/16 21:15 12/27/16 21:15 (Chlorhexidine 2% Cloth) 3 pack DAILY@04 TOPICAL 12/28/16 04:00 01/01/17 04:01 12/29/16 03:23 Chlorhexidine Gluconate 3 pack 3 pack UNSCH PRN TOPICAL 12/27/16 21:15 01/01/17 21:08 (Heparin-D5W Inj) 250 ml @ 0 mls/hr TITRATE IV 12/30/16 00:30 12/30/16 00:36 (Heparin Inj) 5,000 units UNSCH PRN IV 12/30/16 00:30 (Heparin Inj) 2,500 units UNSCH PRN IV 12/30/16 00:30 12/30/16 00:25 Vital Signs / I&O Vital Signs Date Time Temp Pulse Resp B/P Pulse Ox O2 Delivery O2 Flow Rate FiO2 12/30/16 08:05 98 12/30/16 06:00 108 12/30/16 05:00 108 12/30/16 04:00 96.4 107 12 100/62 94 12/30/16 04:00 116 12/30/16 03:00 112 12/30/16 02:00 112 12/30/16 01:00 112 12/30/16 00:00 104 12/30/16 00:00 96.6 111 12 113/78 100 12/29/16 23:00 109 12/29/16 22:00 110 12/29/16 21:00 110 12/29/16 20:00 98.7 106 12 98/63 96 12/29/16 20:00 114 12/29/16 19:28 98 Nasal Cannula 2.00 12/29/16 19:00 109 12/29/16 19:00 108 12/29/16 18:00 106 12/29/16 17:00 108 12/29/16 16:00 110 12/29/16 16:00 97.6 104 12 104/67 98 12/29/16 15:30 98.2 110 16 119/74 98 12/29/16 15:00 113 12/29/16 12:00 110 12/29/16 12:00 97.6 106 13 104/69 97 12/29/16 10:00 110 I/O 12/29/16 12/29/16 12/29/16 12/30/16 12/30/16 12/30/16 07:00 15:00 23:00 07:00 15:00 23:00 Intake Total 192 ml 480 ml 606 ml Output Total 400 ml 900 ml 1000 ml Balance -208 ml -420 ml -394 ml Intake Oral 480 ml 480 ml IV Total 192 ml 126 ml Output Urine Total 400 ml 900 ml 1000 ml # Voids 2 # Bowel Movements 0 0 Physical Exam GENERAL: Well-nourished, well-developed patient. SKIN: Warm and dry. HEAD: Normocephalic. EYES: No scleral icterus. No injection or drainage. NECK: Supple, trachea midline. No JVD or lymphadenopathy. CARDIOVASCULAR: Regular rate and rhythm without murmurs, gallops, or rubs. RESPIRATORY: Breath sounds equal bilaterally. No accessory muscle use. GASTROINTESTINAL: Abdomen soft, non-tender, nondistended. EXTREMITIES: No cyanosis, +2 edema Left>Right NEUROLOGICAL: Awake, alert, and oriented x 3. Non-focal. Laboratory Laboratory Tests Test 12/29/16 12/29/16 12/30/16 12:55 19:28 05:35 Activated Partial 32.4 SEC 31.7 SEC 44.6 SEC Thromboplast Time Imaging Last Impressions Chest X-Ray 12/27/16 0140 Signed Impressions: Service Date/Time: Tuesday, December 27, 2016 01:41 - CONCLUSION: Right greater than left pleural effusions and basilar consolidation. Delroy cSott MD Assessment and Plan Problem List: (1) CHF (congestive heart failure) Assessment and Plan: Non-Ischemic Cardiomyopathy LV thrombus Recommendations: 1. Cont HF management for ACEI, Coreg 2. Bridge Heparin with Coumadin. Start Coumadin goal INR 2-3 3. Cont diuresis 4. Encourage ambulation 5. LifeVest upon discharge (2) HTN (hypertension) (3) Bronchospasm (4) CAD (coronary artery disease), [place] coronary artery (5) PNA (pneumonia) Problem Qualifiers (1) CHF (congestive heart failure): Qualified Code: I50.21 - Acute systolic congestive heart failure (2) PNA (pneumonia): Qualified Code: J18.9 - Pneumonia of both lower lobes due to infectious organism Juan Palacios MD December 30, 2016 09:53 Juan Palacios MD December 30, 2016 09:53
[2016-12-30] MEDS: RESP: ALBUTEROL 2.5 MG/IPRATROPIUM 0.5 MG NEB (SCH) NEB ×3 (09:59→19:06)
[2016-12-30 10:37] LABS: AUTOMATED NEUTROPHIL # 11.3 TH/MM3 (1.8-7.7); BASOPHIL # 0.1 TH/MM3 (0-0.2); EOSINOPHIL # 0.3 TH/MM3 (0-0.4); EOSINOPHIL % 2.3 % (0.0-4.0); HEMATOCRIT 39.9 % (39.0-51.0); HEMO FLAGS DIFF FINAL; LYMPH % 14.3 % (9.0-44.0); LYMPHOCYTE # 2.1 TH/MM3 (1.0-4.8); MEAN CELL VOLUME 85.8 FL (80.0-100.0); MEAN CORPUSCULAR HEMOGLOBIN 26.9 PG (27.0-34.0); MEAN CORPUSCULAR HGB CONC 31.4 % (32.0-36.0); NEUT % 75.4 % (16.0-70.0); PLATELET COUNT 320 TH/MM3 (150-450); RED BLOOD COUNT 4.65 MIL/MM3 (4.50-5.90)
[2016-12-30 11:01] LABS: BICARBONATE 35.5 MEQ/L (21.0-32.0); MAGNESIUM 2.3 MG/DL (1.5-2.5); POTASSIUM 4.2 MEQ/L (3.5-5.1)
[2016-12-30 11:54] LABS: APTT (PATIENT) 43.2 SEC (24.3-30.1)
[2016-12-30] MEDS ORDERED: WARFARIN SOD 5 MG TAB PO SCH (16:00)
[2016-12-31] VITALS (23 sets, daily range): BP systolic 118–127; BP diastolic 73–88; PULSE 92–110; RESP 16–20; TEMP 97.3–98.4; O2SAT 95–99
[2016-12-31] MEDS: cefTRIAXone INJ 1,000 MG in SODIUM CHLORIDE 0.9% INJ 100 ML IV SCH (03:18)
[2016-12-31] MEDS: CHLORHEXIDINE GLUCONATE 2 % 1 PACK (2 CLOTHS)(taper/protocol) TOPICAL SCH (03:18)
[2016-12-31 06:15] LABS: AUTOMATED NEUTROPHIL # 9.4 TH/MM3 (1.8-7.7); BASOPHIL # 0.1 TH/MM3 (0-0.2); BASOPHIL % 0.9 % (0.0-2.0); EOSINOPHIL # 0.7 TH/MM3 (0-0.4); EOSINOPHIL % 5.3 % (0.0-4.0); HEMATOCRIT 37.1 % (39.0-51.0); HEMO FLAGS DIFF FINAL; LYMPH % 18.3 % (9.0-44.0); LYMPHOCYTE # 2.6 TH/MM3 (1.0-4.8); MEAN CELL VOLUME 84.9 FL (80.0-100.0); MEAN CORPUSCULAR HEMOGLOBIN 27.2 PG (27.0-34.0); MONO % 8.9 % (0.0-8.0); NEUT % 66.6 % (16.0-70.0); PLATELET COUNT 306 TH/MM3 (150-450); RED BLOOD COUNT 4.37 MIL/MM3 (4.50-5.90); RED CELL DISTRIBUTION WIDTH 16.1 % (11.6-17.2); WHITE BLOOD COUNT 14.1 TH/MM3 (4.0-11.0)
[2016-12-31 06:27] LABS: APTT (PATIENT) 36.9 SEC (24.3-30.1)
[2016-12-31] MEDS: RESP: ALBUTEROL 2.5 MG/IPRATROPIUM 0.5 MG NEB (SCH) NEB (07:37)
--- NOTE | 2016-12-31 07:59 | HHI.PR ---
Subjective Remarks This is a 51-year-old male who has Asthma and Hypertension, who came to ER with bilateral lower extremity edema Shortness of breath he was admitted with diagnosis of newly CHF exacerbation, during the day of admission he had Hypotension was transferred to Intensive Care Unit, given IV fluids and improved. at this time continued on diuresis. also due to new Ventricular thrombus started on Heparin drip. 12/30: Patient seen in his bedroom in the presence of his Mrs. Karen Tineo , they have information directly from crime scene specialist and because of Left Ventricular thrombus he will need to continue JAEL inhibitors, Started on Coumadin, continue diuresis and Encourage ambulation, LifeVest at discharge. 12/31: Stable in his bedroom, discussed with nurse Miss Cervantesna and seen with her in the room, discussed with crime scene specialist doctor Tee and recommended at discharge won't need Life Vest but the patient as discussed with Manager Relationship and he is Homeless then as per Doctor Tee he will need to get INR between 2 to 3 for discharge. Objective Vital Signs Date Time Temp Pulse Resp B/P Pulse Ox O2 Delivery O2 Flow Rate FiO2 12/31/16 07:37 95 21 12/31/16 06:00 103 12/31/16 05:00 101 12/31/16 04:00 97.8 102 18 127/77 97 12/31/16 04:00 102 12/31/16 03:00 102 12/31/16 02:00 110 12/31/16 01:00 98 12/31/16 00:00 98.0 106 18 119/76 97 12/31/16 00:00 106 12/30/16 23:00 107 12/30/16 22:00 103 12/30/16 21:00 104 12/30/16 20:00 97.9 103 18 125/81 97 12/30/16 20:00 103 12/30/16 19:06 94 21 12/30/16 19:00 98 12/30/16 18:21 96 12/30/16 17:04 98 12/30/16 16:51 102 12/30/16 16:48 98.0 102 18 128/74 97 12/30/16 15:10 96 12/30/16 13:05 100 12/30/16 12:40 98.0 95 18 122/80 97 12/30/16 12:40 95 12/30/16 11:34 98 12/30/16 10:08 97.0 109 18 110/78 98 12/30/16 10:06 109 12/30/16 10:01 96 Nasal Cannula 2.00 12/30/16 08:05 98 I/O 12/30/16 12/30/16 12/30/16 12/31/16 12/31/16 12/31/16 07:00 15:00 23:00 07:00 15:00 23:00 Intake Total 606 ml 130 ml 784 ml Output Total 1000 ml 1000 ml 850 ml Balance -394 ml -870 ml -66 ml Intake Oral 480 ml 640 ml IV Total 126 ml 130 ml 144 ml Output Urine Total 1000 ml 1000 ml 850 ml # Bowel Movements 0 Result Diagram: 12/31/16 0510 12/30/16 1028 Imaging Last Impressions Chest X-Ray 12/27/16 0140 Signed Impressions: Service Date/Time: Tuesday, December 27, 2016 01:41 - CONCLUSION: Right greater than left pleural effusions and basilar consolidation. Delroy Scott MD Procedures Cardiac Cath non Non obstructive CAD, Non ischemic Cardiomyopathy Other Results Laboratory Tests Test 12/27/16 12/27/16 12/27/16 12/27/16 01:50 05:05 18:44 20:00 Differential Total Cells 100 Counted Neutrophils % (Manual) 57 % Lymphocytes % 33 % Monocytes % 5 % Eosinophils % 5 % Neutrophils # (Manual) 8.7 TH/MM3 Platelet Estimate NORMAL Platelet Morphology Comment ENLARGED Creatine Kinase MB 10.6 NG/ML Lactic Acid Level 2.1 mmol/L Blood Gas Puncture Site RT RADIAL Blood Gas Patient Temperature 98.6 Blood Gas HCO3 23 mmol/L Blood Gas Base Excess -1.4 mmol/L Blood Gas Oxygen Saturation 96 % Arterial Blood pH 7.35 Arterial Blood Partial 44 mmHg Pressure CO2 Arterial Blood Partial 120 mmHg Pressure O2 Arterial Blood Oxygen Content 17.1 Vol % Arterial Blood 1.5 % Carboxyhemoglobin Arterial Blood Methemoglobin 0.6 % Blood Gas Hemoglobin 12.6 G/DL Oxygen Delivery Device NASAL CANNULA Blood Gas Liter Flow 5 L/M Troponin I 0.06 NG/ML Nasal Screen MRSA (PCR) MRSA NOT DETECTED Test 12/28/16 12/28/16 12/28/16 12/30/16 06:06 06:20 21:30 10:28 Total Creatine Kinase 202 U/L B-Type Natriuretic Peptide 1624 PG/ML Prothrombin Time 13.8 SEC Prothromb Time International 1.2 RATIO Ratio Sodium Level 137 MEQ/L Potassium Level 4.2 MEQ/L Chloride Level 97 MEQ/L Carbon Dioxide Level 35.5 MEQ/L Anion Gap 5 MEQ/L Blood Urea Nitrogen 25 MG/DL Creatinine 1.08 MG/DL Estimat Glomerular Filtration 72 ML/MIN Rate Random Glucose 113 MG/DL Calcium Level 8.4 MG/DL Phosphorus Level 2.7 MG/DL Magnesium Level 2.3 MG/DL Test 12/31/16 05:10 White Blood Count 14.1 TH/MM3 Red Blood Count 4.37 MIL/MM3 Hemoglobin 11.9 GM/DL Hematocrit 37.1 % Mean Corpuscular Volume 84.9 FL Mean Corpuscular Hemoglobin 27.2 PG Mean Corpuscular Hemoglobin 32.0 % Concent Red Cell Distribution Width 16.1 % Platelet Count 306 TH/MM3 Mean Platelet Volume 9.1 FL Neutrophils (%) (Auto) 66.6 % Lymphocytes (%) (Auto) 18.3 % Monocytes (%) (Auto) 8.9 % Eosinophils (%) (Auto) 5.3 % Basophils (%) (Auto) 0.9 % Neutrophils # (Auto) 9.4 TH/MM3 Lymphocytes # (Auto) 2.6 TH/MM3 Monocytes # (Auto) 1.3 TH/MM3 Eosinophils # (Auto) 0.7 TH/MM3 Basophils # (Auto) 0.1 TH/MM3 CBC Comment DIFF FINAL Differential Comment Activated Partial 36.9 SEC Thromboplast Time Objective Remarks GENERAL: This is a well-nourished, well-developed patient. SKIN: No rashes, ecchymoses or lesions. Cool and dry. HEAD: Atraumatic. Normocephalic. No temporal or scalp tenderness. EYES: Extraocular motions intact. No scleral icterus. No injection or drainage. CARDIOVASCULAR: Sinus rhythm, normal S1, S2 no S3. RESPIRATORY: Bilateral basilar crackles noted GASTROINTESTINAL: Abdomen soft, non-tender, MUSCULOSKELETAL: No clubbing, Cyanosis or edema. NEUROLOGICAL: Awake and alert. Medications and IVs Current Medications Medications (Trade) Dose Ordered Sig/Vishal Route Start Time Stop Time Status Last Admin (NS Flush) 2 ml UNSCH PRN IV FLUSH 12/27/16 03:15 (NS Flush) 2 ml BID IV FLUSH 12/27/16 09:00 12/30/16 21:00 (Tylenol) 650 mg Q4H PRN PO 12/27/16 03:15 (Zofran Inj) 4 mg Q6H PRN IVP 12/27/16 03:15 12/27/16 15:20 (Narcan Inj) 0.4 mg UNSCH PRN IV 12/27/16 03:15 (Lasix Inj) 40 mg BID@09,18 IV PUSH 12/27/16 09:00 Hold 12/29/16 17:51 Potassium Chloride 20 meq 20 meq DAILY PO 12/27/16 09:00 12/30/16 09:00 (Rocephin Inj/NS Inj) 100 ml @ 200 mls/hr Q24H IV 12/28/16 03:00 12/31/16 03:18 (Zithromax) 500 mg DAILY PO 12/27/16 09:00 12/30/16 09:23 (Neurontin) 900 mg TID PO 12/27/16 09:00 12/30/16 17:01 ([place] 10-325 Mg) 1 tab Q6H PRN PO 12/27/16 03:15 12/30/16 17:01 (Prinivil) 10 mg BID PO 12/27/16 09:00 Hold 12/28/16 08:44 (Lopressor) 25 mg DAILY PO 12/27/16 09:00 12/30/16 09:23 Miscellaneous Information Patient in critical care unit? Ass... Q361D .XX 12/27/16 21:15 12/27/16 21:15 (Chlorhexidine 2% Cloth) 3 pack DAILY@04 TOPICAL 12/28/16 04:00 01/01/17 04:01 12/29/16 03:23 Chlorhexidine Gluconate 3 pack 3 pack UNSCH PRN TOPICAL 12/27/16 21:15 01/01/17 21:08 (Heparin-D5W Inj) 250 ml @ 0 mls/hr TITRATE IV 12/30/16 00:30 12/30/16 21:04 (Heparin Inj) 5,000 units UNSCH PRN IV 12/30/16 00:30 Heparin Sodium (Porcine) 2500 units 2,500 units UNSCH PRN IV 12/30/16 00:30 12/30/16 00:25 (Coumadin Consult Pharmacy) 0 ml @ 0 mls/hr UNSCH OTHER 12/30/16 11:30 (Coumadin) 5 mg DAILY@1600 PO 12/30/16 16:00 12/30/16 17:01 A/P Assessment and Plan 1. New onset congestive heart failure- crime scene specialist Following, Severe Left Ventricular Dysfunction initial BNP 2445, on diuretics with Lasix, at this time in intensive Care unit, CXR on admission moderate Right and a small left pleural effusion, bibasilar consolidation. Mild Cardiomegaly, crime scene specialist following Doctor Juan Palacios. Echocardiogram Large Left Ventricular Apical thrombus, dilated LV, Left Ventricular Hypertrophy, EF 20%, LA mildly dilated, as per crime scene specialist recommended JAEL inhibitors, Started on Coumadin, continue diuresis and Encourage ambulation, do not need Life Vest at Discharge, but will need INR therapeutic for discharge. 2. Left Ventricular Thrombus read #1. 3. Hypertension controlled. 4. Bronchospasm improved. 5. Pneumonia on Ceftriaxone and Azithromycin. continue present care and follow laboratory in am tomorrow. 6. Acute Kidney injury improved. DVT prophylaxis Heparin and Coumadin. INR 1.1 will give Warfarin 10 mg today and follow PT and INR. Code Status Full Code. Discussed Condition With Patient, Nurse Miss Beasley and facility service manager I had the pleasure to talk about the case with crime scene specialist Doctor Juan Palacios input and recommendations highly appreciated. Discharge Planning Not yet cleared for discharge Gui Ribeiro MD December 31, 2016 07:59
[2016-12-31] MEDS: SODIUM CHLORIDE 0.9% FLUSH 10 ML FLUSH IV FLUSH SCH ×2 (09:00→20:47)
[2016-12-31 09:27] LABS: INTERNATIONAL NORMALIZED RATIO 1.1 RATIO; PROTHROMBIN TIME - PATIENT 12.3 SEC (9.8-11.6)
[2016-12-31] MEDS: GABAPENTIN 300 MG CAP PO SCH ×3 (09:36→16:54)
[2016-12-31] MEDS: METOPROLOL TARTRATE 25 MG TAB PO SCH (09:36)
[2016-12-31] MEDS: AZITHROMYCIN 250 MG TAB PO SCH (09:36)
[2016-12-31] MEDS: POTASSIUM CHLORIDE 20 MEQ CONTROLLED RELEASE TAB PO SCH (09:36)
[2016-12-31] MEDS: ACETAMINOPHEN/HYDROcodone 325 MG/10 MG TAB PO PRN ×3 (09:51→20:47)
[2016-12-31 13:54] LABS: APTT (PATIENT) 32.2 SEC (24.3-30.1)
[2016-12-31] MEDS ORDERED: WARFARIN SOD 10 MG TAB PO ONE (16:00)
[2016-12-31 19:53] LABS: APTT (PATIENT) 26.9 SEC (24.3-30.1)
[2016-12-31] MEDS: HEPARIN SODIUM - IV 10,000 UNITS/10 ML VIAL IV PRN (20:44)
[2016-12-31] MEDS: HEPARIN-D5W INJ 250 ML IV SCH (20:47)
[2017-01-01] VITALS (25 sets, daily range): BP systolic 98–122; BP diastolic 63–92; PULSE 79–109; RESP 18–20; TEMP 97.6–98.3; O2SAT 90–99
[2017-01-01] MEDS: CHLORHEXIDINE GLUCONATE 2 % 1 PACK (2 CLOTHS)(taper/protocol) TOPICAL SCH (03:13)
[2017-01-01] MEDS: cefTRIAXone INJ 1,000 MG in SODIUM CHLORIDE 0.9% INJ 100 ML IV SCH (03:13)
[2017-01-01] MEDS: ACETAMINOPHEN/HYDROcodone 325 MG/10 MG TAB PO PRN ×4 (03:13→23:09)
[2017-01-01 04:01] LABS: AUTOMATED NEUTROPHIL # 7.1 TH/MM3 (1.8-7.7); BASOPHIL # 0.1 TH/MM3 (0-0.2); BASOPHIL % 1.1 % (0.0-2.0); EOSINOPHIL # 0.8 TH/MM3 (0-0.4); EOSINOPHIL % 7.2 % (0.0-4.0); HEMATOCRIT 37.6 % (39.0-51.0); HEMO FLAGS DIFF FINAL; LYMPHOCYTE # 2.2 TH/MM3 (1.0-4.8); MEAN CELL VOLUME 83.7 FL (80.0-100.0); MEAN CORPUSCULAR HGB CONC 32.2 % (32.0-36.0); MONO % 8.3 % (0.0-8.0); NEUT % 63.4 % (16.0-70.0); PLATELET COUNT 316 TH/MM3 (150-450); RED BLOOD COUNT 4.49 MIL/MM3 (4.50-5.90); WHITE BLOOD COUNT 11.2 TH/MM3 (4.0-11.0)
[2017-01-01 04:12] LABS: INTERNATIONAL NORMALIZED RATIO 1.2 RATIO
[2017-01-01 04:32] LABS: BICARBONATE 35.5 MEQ/L (21.0-32.0); POTASSIUM 5.1 MEQ/L (3.5-5.1)
--- NOTE | 2017-01-01 08:31 | HHI.PR ---
Subjective Remarks This is a 51-year-old male who has Asthma and Hypertension, who came to ER with bilateral lower extremity edema Shortness of breath he was admitted with diagnosis of newly CHF exacerbation, during the day of admission he had Hypotension was transferred to Intensive Care Unit, given IV fluids and improved. at this time continued on diuresis. also due to new Ventricular thrombus started on Heparin drip. 12/30: Patient seen in his bedroom in the presence of his Mrs. Karen Tineo , they have information directly from biomedical equipment specialist and because of Left Ventricular thrombus he will need to continue JAEL inhibitors, Started on Coumadin, continue diuresis and Encourage ambulation, LifeVest at discharge. 12/31: Stable in his bedroom, discussed with nurse Miss Beasley and seen with her in the room, discussed with biomedical equipment specialist doctor Tee and recommended at discharge won't need Life Vest but the patient as discussed with Legal Support Analyst and he is Homeless then as per Doctor Tee he will need to get INR between 2 to 3 for discharge. 01/01: Seen in his bedroom in the presence of nurse Miss Juan, no complaint, no Nausea, vomit or diarrhea. awaiting for his INR to be therapeutic for discharge, giving dosages of Warfarin. Objective Vital Signs Date Time Temp Pulse Resp B/P Pulse Ox O2 Delivery O2 Flow Rate FiO2 01/01/17 07:52 Room Air 01/01/17 06:00 99 01/01/17 05:00 100 01/01/17 04:00 98.3 105 18 121/71 94 01/01/17 04:00 109 01/01/17 03:00 102 01/01/17 02:00 102 01/01/17 01:00 106 01/01/17 00:00 98.0 98 18 105/73 96 01/01/17 00:00 98 12/31/16 23:00 98 12/31/16 22:00 96 12/31/16 21:39 21 12/31/16 21:00 100 12/31/16 20:00 97.3 105 16 118/77 97 12/31/16 20:00 107 12/31/16 20:00 Room Air 12/31/16 19:00 102 12/31/16 18:00 99 12/31/16 17:00 100 12/31/16 16:00 98.4 99 20 126/73 98 12/31/16 15:00 92 12/31/16 13:16 98.0 100 18 122/86 98 12/31/16 13:00 96 12/31/16 11:00 105 12/31/16 10:51 18 12/31/16 10:00 104 12/31/16 09:00 102 I/O 12/31/16 12/31/16 12/31/16 01/01/17 01/01/17 01/01/17 07:00 15:00 23:00 07:00 15:00 23:00 Intake Total 784 ml 893 ml Output Total 850 ml 1200 ml Balance -66 ml -307 ml Intake Oral 640 ml 680 ml IV Total 144 ml 213 ml Output Urine Total 850 ml 1200 ml # Voids 2 # Bowel Movements 0 1 Result Diagram: 01/01/17 0348 01/01/17 0348 Imaging Last Impressions Chest X-Ray 12/27/16 0140 Signed Impressions: Service Date/Time: Tuesday, December 27, 2016 01:41 - CONCLUSION: Right greater than left pleural effusions and basilar consolidation. Delroy Scott MD Procedures Cardiac Cath non Non obstructive CAD, Non ischemic Cardiomyopathy Other Results Laboratory Tests Test 12/27/16 12/28/16 12/28/16 12/30/16 20:00 06:06 06:20 10:28 Nasal Screen MRSA (PCR) MRSA NOT DETECTED Total Creatine Kinase 202 U/L B-Type Natriuretic Peptide 1624 PG/ML Phosphorus Level 2.7 MG/DL Magnesium Level 2.3 MG/DL Test 01/01/17 03:48 White Blood Count 11.2 TH/MM3 Red Blood Count 4.49 MIL/MM3 Hemoglobin 12.1 GM/DL Hematocrit 37.6 % Mean Corpuscular Volume 83.7 FL Mean Corpuscular Hemoglobin 27.0 PG Mean Corpuscular Hemoglobin 32.2 % Concent Red Cell Distribution Width 16.0 % Platelet Count 316 TH/MM3 Mean Platelet Volume 8.9 FL Neutrophils (%) (Auto) 63.4 % Lymphocytes (%) (Auto) 20.0 % Monocytes (%) (Auto) 8.3 % Eosinophils (%) (Auto) 7.2 % Basophils (%) (Auto) 1.1 % Neutrophils # (Auto) 7.1 TH/MM3 Lymphocytes # (Auto) 2.2 TH/MM3 Monocytes # (Auto) 0.9 TH/MM3 Eosinophils # (Auto) 0.8 TH/MM3 Basophils # (Auto) 0.1 TH/MM3 CBC Comment DIFF FINAL Differential Comment Prothrombin Time 13.0 SEC Prothromb Time International 1.2 RATIO Ratio Activated Partial 59.0 SEC Thromboplast Time Sodium Level 135 MEQ/L Potassium Level 5.1 MEQ/L Chloride Level 97 MEQ/L Carbon Dioxide Level 35.5 MEQ/L Anion Gap 3 MEQ/L Blood Urea Nitrogen 19 MG/DL Creatinine 0.97 MG/DL Estimat Glomerular Filtration 81 ML/MIN Rate Random Glucose 108 MG/DL Calcium Level 8.8 MG/DL Objective Remarks GENERAL: This is a well-nourished, well-developed patient. SKIN: No rashes, ecchymoses or lesions. Cool and dry. HEAD: Atraumatic. Normocephalic. No temporal or scalp tenderness. EYES: Extraocular motions intact. No scleral icterus. No injection or drainage. CARDIOVASCULAR: Sinus rhythm, normal S1, S2 no S3. RESPIRATORY: Bilateral basilar crackles noted GASTROINTESTINAL: Abdomen soft, non-tender, MUSCULOSKELETAL: No clubbing, Cyanosis or edema. NEUROLOGICAL: Awake and alert. Medications and IVs Current Medications Medications (Trade) Dose Ordered Sig/Vishal Route Start Time Stop Time Status Last Admin (NS Flush) 2 ml UNSCH PRN IV FLUSH 12/27/16 03:15 (NS Flush) 2 ml BID IV FLUSH 12/27/16 09:00 12/31/16 20:47 (Tylenol) 650 mg Q4H PRN PO 12/27/16 03:15 (Zofran Inj) 4 mg Q6H PRN IVP 12/27/16 03:15 12/27/16 15:20 (Narcan Inj) 0.4 mg UNSCH PRN IV 12/27/16 03:15 (Lasix Inj) 40 mg BID@,18 IV PUSH 12/27/16 09:00 Hold 12/29/16 17:51 Potassium Chloride 20 meq 20 meq DAILY PO 12/27/16 09:00 12/31/16 09:36 (Rocephin Inj/NS Inj) 100 ml @ 200 mls/hr Q24H IV 12/28/16 03:00 01/01/17 03:13 (Zithromax) 500 mg DAILY PO 12/27/16 09:00 12/31/16 09:36 (Neurontin) 900 mg TID PO 12/27/16 09:00 12/31/16 16:54 ([place] 10-325 Mg) 1 tab Q6H PRN PO 12/27/16 03:15 01/01/17 03:13 (Prinivil) 10 mg BID PO 12/27/16 09:00 Hold 12/28/16 08:44 (Lopressor) 25 mg DAILY PO 12/27/16 09:00 12/31/16 09:36 Miscellaneous Information Patient in critical care unit? Ass... Q361D .XX 12/27/16 21:15 12/27/16 21:15 Chlorhexidine Gluconate 3 pack 3 pack UNSCH PRN TOPICAL 12/27/16 21:15 01/01/17 21:08 (Heparin-D5W Inj) 250 ml @ 0 mls/hr TITRATE IV 12/30/16 00:30 12/31/16 20:47 (Heparin Inj) 5,000 units UNSCH PRN IV 12/30/16 00:30 (Heparin Inj) 2,500 units UNSCH PRN IV 12/30/16 00:30 12/31/16 20:44 A/P Assessment and Plan 1. New onset congestive heart failure- biomedical equipment specialist Following, Severe Left Ventricular Dysfunction initial BNP 2445, on diuretics with Lasix, at this time in intensive Care unit, CXR on admission moderate Right and a small left pleural effusion, bibasilar consolidation. Mild Cardiomegaly, biomedical equipment specialist following Doctor Juan Palacios. Echocardiogram Large Left Ventricular Apical thrombus, dilated LV, Left Ventricular Hypertrophy, EF 20%, LA mildly dilated, as per biomedical equipment specialist recommended JAEL inhibitors, Started on Coumadin, continue diuresis and Encourage ambulation, do not need Life Vest at Discharge, but will need INR therapeutic for discharge. today 1.1 continue Heparin. 2. worsening Pulmonary Yoon, with worsening Right pleural effusion, may need Thoracentesis, asked for patient accounts specialist consult. 3. Left Ventricular Thrombus read #1. 4. Hypertension controlled. 5. Pneumonia worsening will switch to Cefepime and Azithromycin. continue Bronchodilator, Mucolytic and Incentive spirometry. electronic commerce specialist consult. 6. Acute Kidney injury improved. DVT prophylaxis Heparin and Coumadin. INR 1.1 will give Warfarin 10 mg today and follow PT and INR. Code Status Full Code. Discussed Condition With Patient, Nurse Miss Juan. Discharge Planning Not yet cleared for discharge Gui Ribeiro MD January 01, 2017 08:31
[2017-01-01] MEDS: METOPROLOL TARTRATE 25 MG TAB PO SCH (08:59)
[2017-01-01] MEDS: POTASSIUM CHLORIDE 20 MEQ CONTROLLED RELEASE TAB PO SCH (08:59)
[2017-01-01] MEDS: AZITHROMYCIN 250 MG TAB PO SCH (08:59)
[2017-01-01] MEDS: GABAPENTIN 300 MG CAP PO SCH ×3 (08:59→17:12)
[2017-01-01] MEDS: SODIUM CHLORIDE 0.9% FLUSH 10 ML FLUSH IV FLUSH SCH ×2 (09:00→20:19)
--- NOTE | 2017-01-01 13:22 | RADRPT ---
EXAM DATE/TIME: 01/01/2017 12:01 [facility] COMPARISON: CHEST SINGLE AP, December 27, 2016, 18:43. INDICATIONS : Short of breath, pneumonia. MEDICAL HISTORY : None. SURGICAL HISTORY : None. ENCOUNTER: Initial ACUITY: 4 - 6 days PAIN SCORE: 0/10 LOCATION: Bilateral chest FINDINGS: The examination demonstrates a moderate size right pleural effusion. The heart is enlarged. There is diffuse interstitial prominence. Study would suggest some degree of congestive failure. There is cons iderable atelectatic/consolidated lung at the right base and an underlying pneumonia is not excluded. The overall size of the effusion has increased since previous dated 12/27/16. CONCLUSION: 1. Increasing right pleural effusion with consolidative changes. Please see above Josh Cadet MD on January 01, 2017 at 13:20 Board Certified Radiologist. This report was verified electronically.
[2017-01-01 14:14] LABS: APTT (PATIENT) 42.3 SEC (24.3-30.1)
[2017-01-01] MEDS ORDERED: WARFARIN SOD 10 MG TAB PO ONE (16:00)
[2017-01-01] MEDS: CEFEPIME INJ 1,000 MG in SODIUM CHLORIDE 0.9% INJ 100 ML IV SCH (17:12)
[2017-01-01] MEDS: RESP: ALBUTEROL 2.5 MG/IPRATROPIUM 0.5 MG NEB (SCH) NEB ×2 (19:21→23:20)
[2017-01-01] MEDS: guaiFENesin E.R. 600 MG TAB PO SCH (20:18)
--- NOTE | 2017-01-01 20:31 | MB ---
cc: ROXANNE OLIVEIRA M.D. DATE OF CONSULTATION: 01/01/2017. REASON FOR CONSULTATION: Pleural effusion. HISTORY OF PRESENT ILLNESS: Mr. Tineo is a 51-year-old male with history of COPD and/or bronchial asthma, hypertension, congestive heart failure who presented to the emergency room with increasing shortness of breath and increasing lower extremity edema. He was treated for underlying congestive heart failure with some improvement; however, his chest x-ray reveals an increasing right pleural effusion and underlying atelectatic change or a pneumonia. The patient did have evidence of a ventricular thrombus and is presently on heparin drip. The patient's shortness of breath is improved. He denies history of fever, chills, cough expectoration or hemoptysis. PAST MEDICAL HISTORY: His past medical history is that of: 1. COPD. 2. Hypertension. 3. Congestive heart failure. SOCIAL HISTORY: Long heavy smoking history, not at present. He does not use drugs. Lives with . ALLERGIES: 1. IBUPROFEN. 2. LEVAQUIN. 3. ULTRAM. MEDICATIONS: Medications at home include: 1. Lortab. 2. Metoprolol. 3. Lisinopril. 4. Albuterol. 5. Gabapentin. FAMILY HISTORY: Noncontributory. REVIEW OF SYSTEMS: A twelve-point review of systems is as per the history of present illness and past history, otherwise negative. PHYSICAL EXAMINATION: VITAL SIGNS: On exam, temperature is 98, pulse 90, respirations 18, blood pressure 107/60, oxygen saturation 96% on two liters oxygen via nasal cannula. HEAD, EYES, EARS, NOSE, THROAT: Unremarkable. Eyes without icterus. NECK: Without adenopathy, no thyroid enlargement, central trachea. CHEST: Decreased breath sounds at bases. CARDIAC: PMI not appreciated. S1 and S2 audible. Positive S3. There is a 1/6 systolic ejection murmur at the left sternal border. ABDOMEN: Lax. Bowel sounds audible. EXTREMITIES: 1+ edema on the right and 3+ on the left. LABS: White count 11,000, hemoglobin 12, hematocrit 37, platelets 316,000. Sodium 135, potassium 5.1, BUN 19, creatinine 0.9. INR 1.2 this a.m. IMAGING STUDIES: Chest x-ray: Bilateral effusion more on the right, seems increased. IMPRESSION: 1. Bilateral pleural effusion. 2. Congestive heart failure. 3. Atelectasis, less likely pneumonia. 4. COPD. 5. Respiratory failure on oxygen therapy. 6. Hypertension. 7. Fibromyalgia. PLAN: 1. The patient will be maintained on oxygen therapy as needed. 2. He is on heparin for ventricular thrombus. He does have lower extremity edema, more so on the left. Underlying DVT is suspect. An ultrasound of both lower extremities would be appropriate to assure the absence of underlying venous thrombosis. The patient is on heparin in any case. 3. Bronchodilator therapy will be continued. 4. The patient has been started on antibiotic therapy, and appropriately so. 5. The changes in the chest are likely related to his effusions and atelectatic change; however, an infiltrate is obviously a possibility. 6. Chest x-ray will be followed. I do thank you for asking me to partake in Mr. Tineo's care. Roxanne Oliveira MD WWW/CÉSAR /7:32 PM /8:24 PM
--- NOTE | 2017-01-01 22:42 | RADRPT ---
EXAM DATE/TIME: 01/01/2017 22:11 [facility] COMPARISON: No previous studies available for comparison. INDICATIONS : Bilateral leg swelling. MEDICAL HISTORY : Hypertension. Gastroesophageal reflux disease. Arthritis. Coronary artery disease. Congestive heart f ailure. Migraines. Asthma. Left renal mass. Fibromyalgia. Ostoporosis. Depression. Anxiety. Shingles. SURGICAL HISTORY : Left knee surgery. ENCOUNTER: Initial ACUITY: 1 week PAIN SCORE: 3/10 LOCATION: Bilateral legs. TECHNIQUE: Venous ultrasound of the left and right leg was performed from the inguinal ligament to the proximal calf. Real-time, color Doppler and spectral tracing, compression and augmentation techniques were us ed. FINDINGS: RIGHT LEG: There is normal compressibility of the deep venous system from the inguinal region to the proximal ca lf. No echogenic clot is seen in the lumen of the common femoral, femoral, popliteal, and posterior tibial veins. There is a normal response of the venous system to proximal and distal augmentation an d respiration. LEFT LEG: There is normal compressibility of the deep venous system from the inguinal region to the proximal ca lf. No echogenic clot is seen in the lumen of the common femoral, femoral, popliteal, and posterior tibial veins. There is a normal response of the venous system to proximal and distal augmentation an d respiration. CONCLUSION: No DVT of either lower extremity. Delroy Scott MD on January 01, 2017 at 22:39 Board Certified Radiologist. This report was verified electronically.
[2017-01-02] VITALS (16 sets, daily range): BP systolic 112–130; BP diastolic 79–98; PULSE 95–116; RESP 18–20; TEMP 97.4–98.2; O2SAT 95–99
[2017-01-02] MEDS: RESP: ALBUTEROL 2.5 MG/IPRATROPIUM 0.5 MG NEB (SCH) NEB ×6 (03:18→23:20)
[2017-01-02] MEDS: CEFEPIME INJ 1,000 MG in SODIUM CHLORIDE 0.9% INJ 100 ML IV SCH ×2 (03:59→17:30)
[2017-01-02 07:51] LABS: APTT (PATIENT) 69.5 SEC (24.3-30.1); INTERNATIONAL NORMALIZED RATIO 1.7 RATIO; PROTHROMBIN TIME - PATIENT 18.7 SEC (9.8-11.6)
--- NOTE | 2017-01-02 08:17 | HHI.PR ---
Subjective Remarks This is a 51-year-old male who has Asthma and Hypertension, who came to ER with bilateral lower extremity edema Shortness of breath he was admitted with diagnosis of newly CHF exacerbation, during the day of admission he had Hypotension was transferred to Intensive Care Unit, given IV fluids and improved. at this time continued on diuresis. also due to new Ventricular thrombus started on Heparin drip. 12/30: Patient seen in his bedroom in the presence of his Mrs. Karen Tineo , because of Left Ventricular thrombus he will need to continue JAEL inhibitors, Started on Coumadin, continue diuresis and Encourage ambulation, LifeVest at discharge. 12/31: Discussed with promotions specialist doctor Oliveira and recommended at discharge won't need Life Vest as per Doctor Tee he will need to get INR between 2 to 3 for discharge. 01/01: Awaiting for his INR to be therapeutic for discharge, giving dosages of Warfarin. 01/02: Seen in his bedroom in the presence of his Mrs. Karen Tineo, all questions answered. followed by renewals specialist, with Diagnosis of Bilateral Pleural effusions likely secondary to CHF, will follow CXR for possible Thoracentesis, continue Diuresis with Bumex. Objective Vital Signs Date Time Temp Pulse Resp B/P Pulse Ox O2 Delivery O2 Flow Rate FiO2 01/02/17 07:51 97 21 01/02/17 06:01 103 01/02/17 05:00 101 01/02/17 04:00 102 01/02/17 04:00 Nasal Cannula 2.00 01/02/17 04:00 98.0 102 18 126/83 95 01/02/17 03:00 101 01/02/17 02:00 98 01/02/17 01:00 95 01/02/17 00:00 98.2 97 20 128/91 95 01/02/17 00:00 97 01/01/17 23:00 95 01/01/17 22:00 98 01/01/17 21:00 101 01/01/17 20:00 98.3 109 20 108/83 96 01/01/17 20:00 109 01/01/17 19:20 90 21 01/01/17 19:02 Nasal Cannula 2.00 21 01/01/17 18:00 92 01/01/17 17:00 96 01/01/17 16:00 98 01/01/17 16:00 97.9 99 19 107/63 96 01/01/17 15:52 24 01/01/17 15:00 100 01/01/17 14:00 104 01/01/17 13:00 100 01/01/17 12:00 97 01/01/17 12:00 97.9 79 18 98/69 98 01/01/17 11:00 86 01/01/17 10:00 98 01/01/17 09:51 93 Nasal Cannula 2.00 01/01/17 09:00 104 I/O 01/01/17 01/01/17 01/01/17 01/02/17 01/02/17 01/02/17 07:00 15:00 23:00 07:00 15:00 23:00 Intake Total 893 ml 888 ml 900 ml Output Total 1200 ml 1025 ml 950 ml Balance -307 ml -137 ml -50 ml Intake Oral 680 ml 780 ml 640 ml IV Total 213 ml 108 ml 260 ml Output Urine Total 1200 ml 1025 ml 950 ml # Bowel Movements 1 1 0 Result Diagram: 01/01/17 0348 01/01/17 0348 Imaging Last Impressions Lower Extremity Ultrasound 01/01/17 0000 Signed Impressions: Service Date/Time: Sunday, January 01, 2017 22:11 - CONCLUSION: No DVT of either lower extremity. Delroy Scott MD Chest X-Ray 01/01/17 0000 Signed Impressions: Service Date/Time: Sunday, January 01, 2017 12:01 - CONCLUSION: 1. Increasing right pleural effusion with consolidative changes. Please see above Josh Cadet MD Procedures Cardiac Cath non Non obstructive CAD, Non ischemic Cardiomyopathy Other Results Laboratory Tests Test 12/30/16 01/01/17 01/02/17 10:28 03:48 07:08 Phosphorus Level 2.7 MG/DL Magnesium Level 2.3 MG/DL White Blood Count 11.2 TH/MM3 Red Blood Count 4.49 MIL/MM3 Hemoglobin 12.1 GM/DL Hematocrit 37.6 % Mean Corpuscular Volume 83.7 FL Mean Corpuscular Hemoglobin 27.0 PG Mean Corpuscular Hemoglobin 32.2 % Concent Red Cell Distribution Width 16.0 % Platelet Count 316 TH/MM3 Mean Platelet Volume 8.9 FL Neutrophils (%) (Auto) 63.4 % Lymphocytes (%) (Auto) 20.0 % Monocytes (%) (Auto) 8.3 % Eosinophils (%) (Auto) 7.2 % Basophils (%) (Auto) 1.1 % Neutrophils # (Auto) 7.1 TH/MM3 Lymphocytes # (Auto) 2.2 TH/MM3 Monocytes # (Auto) 0.9 TH/MM3 Eosinophils # (Auto) 0.8 TH/MM3 Basophils # (Auto) 0.1 TH/MM3 CBC Comment DIFF FINAL Differential Comment Sodium Level 135 MEQ/L Potassium Level 5.1 MEQ/L Chloride Level 97 MEQ/L Carbon Dioxide Level 35.5 MEQ/L Anion Gap 3 MEQ/L Blood Urea Nitrogen 19 MG/DL Creatinine 0.97 MG/DL Estimat Glomerular Filtration 81 ML/MIN Rate Random Glucose 108 MG/DL Calcium Level 8.8 MG/DL Prothrombin Time 18.7 SEC Prothromb Time International 1.7 RATIO Ratio Activated Partial 69.5 SEC Thromboplast Time Objective Remarks GENERAL: This is a well-nourished, well-developed patient. SKIN: No rashes, ecchymoses or lesions. Cool and dry. HEAD: Atraumatic. Normocephalic. No temporal or scalp tenderness. EYES: Extraocular motions intact. No scleral icterus. No injection or drainage. CARDIOVASCULAR: Sinus rhythm, normal S1, S2 no S3. RESPIRATORY: Decreased breath sounds bilateral, no wheezing, soft basal crackles heard. GASTROINTESTINAL: Abdomen soft, non-tender, MUSCULOSKELETAL: No clubbing, Cyanosis or edema. NEUROLOGICAL: Awake and alert. Medications and IVs Current Medications Medications (Trade) Dose Ordered Sig/Vishal Route Start Time Stop Time Status Last Admin (NS Flush) 2 ml UNSCH PRN IV FLUSH 12/27/16 03:15 (NS Flush) 2 ml BID IV FLUSH 12/27/16 09:00 01/01/17 20:19 (Tylenol) 650 mg Q4H PRN PO 12/27/16 03:15 (Zofran Inj) 4 mg Q6H PRN IVP 12/27/16 03:15 12/27/16 15:20 (Narcan Inj) 0.4 mg UNSCH PRN IV 12/27/16 03:15 (Lasix Inj) 40 mg BID@,18 IV PUSH 12/27/16 09:00 Hold 12/29/16 17:51 (KCl) 20 meq DAILY PO 12/27/16 09:00 01/01/17 08:59 (Zithromax) 500 mg DAILY PO 12/27/16 09:00 01/01/17 08:59 (Neurontin) 900 mg TID PO 12/27/16 09:00 01/01/17 17:12 ([place] 10-325 Mg) 1 tab Q6H PRN PO 12/27/16 03:15 01/01/17 23:09 (Prinivil) 10 mg BID PO 12/27/16 09:00 Hold 12/28/16 08:44 (Lopressor) 25 mg DAILY PO 12/27/16 09:00 01/01/17 08:59 Miscellaneous Information Patient in critical care unit? Ass... Q361D .XX 12/27/16 21:15 12/27/16 21:15 (Heparin-D5W Inj) 250 ml @ 0 mls/hr TITRATE IV 12/30/16 00:30 12/31/16 20:47 (Heparin Inj) 5,000 units UNSCH PRN IV 12/30/16 00:30 Heparin Sodium (Porcine) 2500 units 2,500 units UNSCH PRN IV 12/30/16 00:30 12/31/16 20:44 (Maxipime Inj/NS Inj) 100 ml @ 200 mls/hr Q12H IV 01/01/17 17:00 01/02/17 03:59 (Mucinex Er) 600 mg BID PO 01/01/17 21:00 01/01/17 20:18 A/P Assessment and Plan 1. New onset congestive heart failure- promotions specialist Following, Severe Left Ventricular Dysfunction initial BNP 2445, on diuretics with Lasix, at this time in intensive Care unit, CXR on admission moderate Right and a small left pleural effusion, bibasilar consolidation. Mild Cardiomegaly, promotions specialist following Doctor Juan Palacios. Echocardiogram Large Left Ventricular Apical thrombus, dilated LV, Left Ventricular Hypertrophy, EF 20%, LA mildly dilated, as per promotions specialist recommended JAEL inhibitors, Started on Coumadin, continue diuresis and Encourage ambulation, do not need Life Vest at Discharge, but will need INR therapeutic for discharge. today 1.7 continue Warfarin. 2. Bilateral pleural effusion, will get CXR and probable Thoracentesis. 3. Left Ventricular Thrombus read #1. 4. Hypertension controlled. 5. Pneumonia worsening will switch to Cefepime and Azithromycin. continue Bronchodilator, Mucolytic and Incentive spirometry. 6. Acute Kidney injury improved. DVT prophylaxis Heparin and Coumadin. INR 1.7. Warfarin 5 mg today. Code Status Full Code. Discussed Condition With Patient, Nurse and his in the room. all questions answered to the best of my abilities. Discharge Planning Not yet cleared for discharge Gui Ribeiro MD January 02, 2017 08:17 Gui Ribeiro MD January 02, 2017 08:17
[2017-01-02] MEDS: guaiFENesin E.R. 600 MG TAB PO SCH ×2 (08:43→20:35)
[2017-01-02] MEDS: METOPROLOL TARTRATE 25 MG TAB PO SCH (08:43)
[2017-01-02] MEDS: POTASSIUM CHLORIDE 20 MEQ CONTROLLED RELEASE TAB PO SCH (08:43)
[2017-01-02] MEDS: GABAPENTIN 300 MG CAP PO SCH ×3 (08:44→17:31)
[2017-01-02] MEDS: AZITHROMYCIN 250 MG TAB PO SCH (08:44)
[2017-01-02] MEDS: SODIUM CHLORIDE 0.9% FLUSH 10 ML FLUSH IV FLUSH SCH ×2 (08:46→20:35)
[2017-01-02] MEDS: ACETAMINOPHEN/HYDROcodone 325 MG/10 MG TAB PO PRN ×2 (10:13→19:11)
--- NOTE | 2017-01-02 11:09 | HHI.PR ---
Subjective Remarks 5/6 No events overnight on room air oxygen when seen. Afebrile and breathing better. Objective Vital Signs Vital Signs Date Time Temp Pulse Resp B/P Pulse Ox O2 Delivery O2 Flow Rate FiO2 01/02/17 08:00 101 01/02/17 08:00 97 Room Air 01/02/17 08:00 97.4 108 18 130/98 97 01/02/17 07:51 97 21 01/02/17 06:01 103 01/02/17 05:00 101 01/02/17 04:00 102 01/02/17 04:00 Nasal Cannula 2.00 01/02/17 04:00 98.0 102 18 126/83 95 01/02/17 03:00 101 01/02/17 02:00 98 01/02/17 01:00 95 01/02/17 00:00 98.2 97 20 128/91 95 01/02/17 00:00 97 01/01/17 23:00 95 01/01/17 22:00 98 01/01/17 21:00 101 01/01/17 20:00 98.3 109 20 108/83 96 01/01/17 20:00 109 01/01/17 19:20 90 21 01/01/17 19:02 Nasal Cannula 2.00 21 01/01/17 18:00 92 01/01/17 17:00 96 01/01/17 16:00 98 01/01/17 16:00 97.9 99 19 107/63 96 01/01/17 15:52 24 01/01/17 15:00 100 01/01/17 14:00 104 01/01/17 13:00 100 01/01/17 12:00 97 01/01/17 12:00 97.9 79 18 98/69 98 01/01/17 11:00 86 I/O 01/01/17 01/01/17 01/01/17 01/02/17 01/02/17 01/02/17 07:00 15:00 23:00 07:00 15:00 23:00 Intake Total 893 ml 888 ml 900 ml Output Total 1200 ml 1025 ml 950 ml Balance -307 ml -137 ml -50 ml Intake Oral 680 ml 780 ml 640 ml IV Total 213 ml 108 ml 260 ml Output Urine Total 1200 ml 1025 ml 950 ml # Bowel Movements 1 1 0 Result Diagram: 01/01/17 0348 01/01/17 0348 Other Results Laboratory Tests Test 01/01/17 01/02/17 13:50 07:08 Activated Partial 42.3 SEC 69.5 SEC Thromboplast Time Prothrombin Time 18.7 SEC Prothromb Time International 1.7 RATIO Ratio Objective Remarks GENERAL: Patient is lying in bed in NAD SKIN: Warm and dry. HEAD: Normocephalic. EYES: No scleral icterus. No injection or drainage. NECK: Supple, trachea midline. No JVD or lymphadenopathy. CARDIOVASCULAR: Tachycardic without murmurs, gallops, or rubs. RESPIRATORY: Breath sounds equal bilaterally. Diminished right base. GASTROINTESTINAL: Abdomen soft, non-tender, nondistended. MUSCULOSKELETAL: No cyanosis, or edema. Neuro: Awake and alert. A/P Assessment and Plan 1. Bilateral pleural effusion. 2. CHF. 3. Atelectasis, less likely pneumonia. 4. COPD. 5. Hypertension. 6. Cardiomyopathy with EF 20% Intracardiac thrombus 7) Hx Asthma ? COPD 8)Tobacco abuse PLAN: Oxygen PRN to keep sat >92% Bronchodilators , IS, check CXR if there is any worsening in pleural effusion patient might benefit from US guided thoracentesis Diurese with Bumex 1mg iv x1, check BNP Continue with abx ( Cefepime, Azithromycin) monitor for signs of infections ( Fever, WBC) check sputum cx, check strep pneumonia and Legionella urinary Ag Continue with heparin for ventricular thrombus. Doppler US LE negative for DVT PFT as outpatient to asses severity of his obstructive lung disease given hx tobacco use and bronchial asthma. Continue treatment plan Jaky Dooley MD January 02, 2017 11:09
[2017-01-02] MEDS ORDERED: BUMETANIDE INJ 1 MG/4 ML VIAL IV PUSH ONE (11:15)
[2017-01-02 12:19] LABS: AUTOMATED NEUTROPHIL # 9.4 TH/MM3 (1.8-7.7); BASOPHIL # 0.1 TH/MM3 (0-0.2); BASOPHIL % 0.8 % (0.0-2.0); EOSINOPHIL % 7.6 % (0.0-4.0); HEMATOCRIT 38.9 % (39.0-51.0); HEMO FLAGS DIFF FINAL; LYMPH % 13.5 % (9.0-44.0); LYMPHOCYTE # 1.8 TH/MM3 (1.0-4.8); MEAN CELL VOLUME 84.4 FL (80.0-100.0); MEAN CORPUSCULAR HEMOGLOBIN 27.2 PG (27.0-34.0); MEAN CORPUSCULAR HGB CONC 32.2 % (32.0-36.0); MONO % 7.5 % (0.0-8.0); NEUT % 70.6 % (16.0-70.0); PLATELET COUNT 311 TH/MM3 (150-450); RED BLOOD COUNT 4.61 MIL/MM3 (4.50-5.90); RED CELL DISTRIBUTION WIDTH 15.9 % (11.6-17.2); WHITE BLOOD COUNT 13.3 TH/MM3 (4.0-11.0)
--- NOTE | 2017-01-02 12:21 | RADRPT ---
EXAM DATE/TIME: 01/02/2017 11:51 [facility] COMPARISON: CHEST SINGLE AP, December 27, 2016, 18:43. INDICATIONS : Shortness of breath and cough. Right pleural effusion. MEDICAL HISTORY : Hypertension. Gastroesophageal reflux disease. Coronary artery disease. SURGICAL HISTORY : None. ENCOUNTER: Subsequent ACUITY: 1 day PAIN SCORE: 0/10 LOCATION: Bilateral chest FINDINGS: A single AP semierect view of the chest was obtained and demonstrates an interval increase in the rig ht effusion which is now moderate in size. There is patchy opacity at the right lung base. There is m ild hazy opacity in the left lung. The heart size appears mildly enlarged. The bony thorax is intact with overlying electrocardiogram leads. CONCLUSION: 1. Interval increase in right pleural effusion which is now moderate in size. 2. Patchy opacity remains at the right lung base. 3. There is mild hazy opacity now noted in the left lung. Dann Archer MD on January 02, 2017 at 12:18 Board Certified Radiologist. This report was verified electronically.
[2017-01-02 12:35] LABS: BICARBONATE 34.5 MEQ/L (21.0-32.0); POTASSIUM 4.5 MEQ/L (3.5-5.1)
[2017-01-02] MEDS ORDERED: WARFARIN SOD 5 MG TAB PO ONE (16:00)
[2017-01-02] MEDS: HEPARIN-D5W INJ 250 ML IV SCH (19:14)
[2017-01-03] VITALS (16 sets, daily range): BP systolic 107–141; BP diastolic 69–92; PULSE 86–118; RESP 18–20; TEMP 97.4–98.4; O2SAT 85–97
[2017-01-03] MEDS: RESP: ALBUTEROL 2.5 MG/IPRATROPIUM 0.5 MG NEB (SCH) NEB ×6 (04:32→23:38)
[2017-01-03] MEDS: CEFEPIME INJ 1,000 MG in SODIUM CHLORIDE 0.9% INJ 100 ML IV SCH ×2 (05:20→17:00)
[2017-01-03 06:00] LABS: INTERNATIONAL NORMALIZED RATIO 1.8 RATIO; PROTHROMBIN TIME - PATIENT 20.6 SEC (9.8-11.6)
[2017-01-03 06:12] LABS: HEMATOCRIT 38.7 % (39.0-51.0); MEAN CELL VOLUME 85.1 FL (80.0-100.0); MEAN CORPUSCULAR HEMOGLOBIN 26.3 PG (27.0-34.0); MEAN CORPUSCULAR HGB CONC 30.9 % (32.0-36.0); PLATELET COUNT 258 TH/MM3 (150-450); RED BLOOD COUNT 4.55 MIL/MM3 (4.50-5.90); RED CELL DISTRIBUTION WIDTH 15.8 % (11.6-17.2); REVIEW FLAG FINAL
[2017-01-03 06:36] LABS: APTT (PATIENT) 55.1 SEC (24.3-30.1)
[2017-01-03] MEDS: METOPROLOL TARTRATE 25 MG TAB PO SCH (09:00)
[2017-01-03] MEDS: SODIUM CHLORIDE 0.9% FLUSH 10 ML FLUSH IV FLUSH SCH ×2 (09:00→19:23)
[2017-01-03] MEDS: guaiFENesin E.R. 600 MG TAB PO SCH ×2 (09:01→19:23)
[2017-01-03] MEDS: GABAPENTIN 300 MG CAP PO SCH ×3 (09:01→18:12)
[2017-01-03] MEDS: AZITHROMYCIN 250 MG TAB PO SCH (09:01)
[2017-01-03] MEDS: ACETAMINOPHEN/HYDROcodone 325 MG/10 MG TAB PO PRN ×2 (10:21→19:23)
--- NOTE | 2017-01-03 10:38 | HHI.PR ---
Subjective Remarks Patient is on room air oxygen when seen in no acute resp distress. On Heparin drip. Objective Vital Signs Vital Signs Date Time Temp Pulse Resp B/P Pulse Ox O2 Delivery O2 Flow Rate FiO2 01/03/17 08:08 97 01/03/17 08:00 103 01/03/17 08:00 Room Air 01/03/17 08:00 97.4 98 20 130/92 95 01/03/17 06:00 107 01/03/17 05:00 111 01/03/17 04:00 Room Air 01/03/17 04:00 117 01/03/17 04:00 98.1 117 18 141/87 96 01/03/17 03:00 103 01/03/17 02:00 101 01/03/17 01:00 100 01/03/17 00:00 102 01/03/17 00:00 98.4 102 20 107/77 96 01/03/17 00:00 Room Air 01/02/17 23:00 110 01/02/17 22:00 103 01/02/17 21:00 116 01/02/17 20:32 95 21 01/02/17 20:00 98.0 106 20 112/87 95 01/02/17 20:00 106 01/02/17 20:00 Room Air 01/02/17 16:38 108 01/02/17 16:38 97.8 105 18 116/79 95 01/02/17 12:15 18 01/02/17 12:04 97.6 100 20 113/87 99 01/02/17 12:04 102 I/O 01/02/17 01/02/17 01/02/17 01/03/17 01/03/17 01/03/17 07:00 15:00 23:00 07:00 15:00 23:00 Intake Total 900 ml 1160 ml 1060 ml Output Total 950 ml 2450 ml 1600 ml Balance -50 ml -1290 ml -540 ml Intake Oral 640 ml 960 ml 800 ml IV Total 260 ml 200 ml 260 ml Output Urine Total 950 ml 2450 ml 1600 ml # Bowel Movements 0 2 1 Result Diagram: 01/03/17 0403 01/02/17 1136 Other Results Last Impressions Chest X-Ray 01/02/17 0000 Signed Impressions: Service Date/Time: Monday, January 02, 2017 11:51 - CONCLUSION: 1. Interval increase in right pleural effusion which is now moderate in size. 2. Patchy opacity remains at the right lung base. 3. There is mild hazy opacity now noted in the left lung. Dann Archer MD Lower Extremity Ultrasound 01/01/17 0000 Signed Impressions: Service Date/Time: Sunday, January 01, 2017 22:11 - CONCLUSION: No DVT of either lower extremity. Delroy Scott MD Laboratory Tests Test 01/02/17 01/03/17 11:36 04:03 White Blood Count 13.3 TH/MM3 12.0 TH/MM3 Red Blood Count 4.61 MIL/MM3 4.55 MIL/MM3 Hemoglobin 12.5 GM/DL 12.0 GM/DL Hematocrit 38.9 % 38.7 % Mean Corpuscular Volume 84.4 FL 85.1 FL Mean Corpuscular Hemoglobin 27.2 PG 26.3 PG Mean Corpuscular Hemoglobin 32.2 % 30.9 % Concent Red Cell Distribution Width 15.9 % 15.8 % Platelet Count 311 TH/MM3 258 TH/MM3 Mean Platelet Volume 9.2 FL 10.0 FL Neutrophils (%) (Auto) 70.6 % Lymphocytes (%) (Auto) 13.5 % Monocytes (%) (Auto) 7.5 % Eosinophils (%) (Auto) 7.6 % Basophils (%) (Auto) 0.8 % Neutrophils # (Auto) 9.4 TH/MM3 Lymphocytes # (Auto) 1.8 TH/MM3 Monocytes # (Auto) 1.0 TH/MM3 Eosinophils # (Auto) 1.0 TH/MM3 Basophils # (Auto) 0.1 TH/MM3 CBC Comment DIFF FINAL Differential Comment Sodium Level 137 MEQ/L Potassium Level 4.5 MEQ/L Chloride Level 96 MEQ/L Carbon Dioxide Level 34.5 MEQ/L Anion Gap 7 MEQ/L Blood Urea Nitrogen 16 MG/DL Creatinine 0.85 MG/DL Estimat Glomerular Filtration 94 ML/MIN Rate Random Glucose 93 MG/DL Calcium Level 9.2 MG/DL B-Type Natriuretic Peptide 1825 PG/ML Prothrombin Time 20.6 SEC Prothromb Time International 1.8 RATIO Ratio Activated Partial 55.1 SEC Thromboplast Time Objective Remarks GENERAL: Patient is lying in bed in NAD SKIN: Warm and dry. HEAD: Normocephalic. EYES: No scleral icterus. No injection or drainage. NECK: Supple, trachea midline. No JVD or lymphadenopathy. CARDIOVASCULAR: Tachycardic without murmurs, gallops, or rubs. RESPIRATORY: Breath sounds equal bilaterally. Diminished right base. GASTROINTESTINAL: Abdomen soft, non-tender, nondistended. MUSCULOSKELETAL: No cyanosis, or edema. Neuro: Awake and alert. A/P Assessment and Plan 1. Bilateral pleural effusion R/L ( likely related to CHF) 2. CHF. 3. Atelectasis, less likely pneumonia. 4. COPD. 5. Hypertension. 6. Cardiomyopathy with EF 20% Intracardiac thrombus 7) Hx Asthma ? COPD 8)Tobacco abuse PLAN: Oxygen PRN to keep sat >92% Bronchodilators , IS, Will proceed with US guided thoracentesis on right send pleural fluid for analysis and culture Diurese with Bumex 1mg iv x1 CXR from yesterday showed moderate pleural effusion. Patchy opacity remains at the right lung base. Continue with abx ( Cefepime, Azithromycin) monitor for signs of infections ( Fever, WBC) check sputum cx, check strep pneumonia and Legionella urinary Ag On heparin drip for ventricular thrombus. Will need to hold heparin prior to thoracentesis. Doppler US LE negative for DVT PFT as outpatient to asses severity of his obstructive lung disease given hx tobacco use and bronchial asthma. Continue treatment plan Jaky Dooley MD January 03, 2017 10:38
[2017-01-03] MEDS ORDERED: BUMETANIDE INJ 1 MG/4 ML VIAL IV PUSH ONE (10:45)
[2017-01-03] MEDS: HEPARIN-D5W INJ 250 ML IV SCH (11:15)
[2017-01-03 11:34] LABS: BICARBONATE 33.3 MEQ/L (21.0-32.0); POTASSIUM 4.2 MEQ/L (3.5-5.1)
--- NOTE | 2017-01-03 11:57 | HHI.PR ---
Subjective Remarks This is a 51-year-old male who has Asthma and Hypertension, who came to ER with bilateral lower extremity edema Shortness of breath he was admitted with diagnosis of newly CHF exacerbation, during the day of admission he had Hypotension was transferred to Intensive Care Unit, given IV fluids and improved. at this time continued on diuresis. also due to new Ventricular thrombus started on Heparin drip. 12/30: Patient seen in his bedroom in the presence of his Mrs. Karen Tineo , because of Left Ventricular thrombus he will need to continue JAEL inhibitors, Started on Coumadin, continue diuresis and Encourage ambulation, LifeVest at discharge. 12/31: Discussed with tower air traffic control specialist doctor Oliveira and recommended at discharge won't need Life Vest as per Doctor Tee he will need to get INR between 2 to 3 for discharge. 01/01: Awaiting for his INR to be therapeutic for discharge, giving dosages of Warfarin. 01/02: Seen in his bedroom in the presence of his Mrs. Karen Tineo, all questions answered. followed by auth specialist, with Diagnosis of Bilateral Pleural effusions likely secondary to CHF, will follow CXR for possible Thoracentesis, continue Diuresis with Bumex. 01/03: Patient stable No nausea, vomit or diarrhea, with his by his side, seen by auth specialist on CXR from yesterday has Moderate pleural effusion patchy opacity remains at the right lung base, Proceed with Thoracentesis his INR 1.8 will need to be reversed by auth specialist to get it 1.5 or below for procedure. Objective Vital Signs Date Time Temp Pulse Resp B/P Pulse Ox O2 Delivery O2 Flow Rate FiO2 01/03/17 08:08 97 01/03/17 08:00 103 01/03/17 08:00 Room Air 01/03/17 08:00 97.4 98 20 130/92 95 01/03/17 06:00 107 01/03/17 05:00 111 01/03/17 04:00 Room Air 01/03/17 04:00 117 01/03/17 04:00 98.1 117 18 141/87 96 01/03/17 03:00 103 01/03/17 02:00 101 01/03/17 01:00 100 01/03/17 00:00 102 01/03/17 00:00 98.4 102 20 107/77 96 01/03/17 00:00 Room Air 01/02/17 23:00 110 01/02/17 22:00 103 01/02/17 21:00 116 01/02/17 20:32 95 21 01/02/17 20:00 98.0 106 20 112/87 95 01/02/17 20:00 106 01/02/17 20:00 Room Air 01/02/17 16:38 108 01/02/17 16:38 97.8 105 18 116/79 95 01/02/17 12:15 18 01/02/17 12:04 97.6 100 20 113/87 99 01/02/17 12:04 102 I/O 01/02/17 01/02/17 01/02/17 01/03/17 01/03/17 01/03/17 07:00 15:00 23:00 07:00 15:00 23:00 Intake Total 900 ml 1160 ml 1060 ml Output Total 950 ml 2450 ml 1600 ml Balance -50 ml -1290 ml -540 ml Intake Oral 640 ml 960 ml 800 ml IV Total 260 ml 200 ml 260 ml Output Urine Total 950 ml 2450 ml 1600 ml # Bowel Movements 0 2 1 Result Diagram: 01/03/17 0403 01/03/17 1105 Imaging Last Impressions Chest X-Ray 01/02/17 0000 Signed Impressions: Service Date/Time: Monday, January 02, 2017 11:51 - CONCLUSION: 1. Interval increase in right pleural effusion which is now moderate in size. 2. Patchy opacity remains at the right lung base. 3. There is mild hazy opacity now noted in the left lung. Dann Archer MD Lower Extremity Ultrasound 01/01/17 0000 Signed Impressions: Service Date/Time: Sunday, January 01, 2017 22:11 - CONCLUSION: No DVT of either lower extremity. Delroy Scott MD Procedures Cardiac Cath non Non obstructive CAD, Non ischemic Cardiomyopathy Other Results Laboratory Tests Test 12/30/16 01/02/17 01/03/17 01/03/17 10:28 11:36 04:03 11:05 Phosphorus Level 2.7 MG/DL Magnesium Level 2.3 MG/DL Neutrophils (%) (Auto) 70.6 % Lymphocytes (%) (Auto) 13.5 % Monocytes (%) (Auto) 7.5 % Eosinophils (%) (Auto) 7.6 % Basophils (%) (Auto) 0.8 % Neutrophils # (Auto) 9.4 TH/MM3 Lymphocytes # (Auto) 1.8 TH/MM3 Monocytes # (Auto) 1.0 TH/MM3 Eosinophils # (Auto) 1.0 TH/MM3 Basophils # (Auto) 0.1 TH/MM3 CBC Comment DIFF FINAL Differential Comment B-Type Natriuretic Peptide 1825 PG/ML White Blood Count 12.0 TH/MM3 Red Blood Count 4.55 MIL/MM3 Hemoglobin 12.0 GM/DL Hematocrit 38.7 % Mean Corpuscular Volume 85.1 FL Mean Corpuscular Hemoglobin 26.3 PG Mean Corpuscular Hemoglobin 30.9 % Concent Red Cell Distribution Width 15.8 % Platelet Count 258 TH/MM3 Mean Platelet Volume 10.0 FL Prothrombin Time 20.6 SEC Prothromb Time International 1.8 RATIO Ratio Activated Partial 55.1 SEC Thromboplast Time Sodium Level 138 MEQ/L Potassium Level 4.2 MEQ/L Chloride Level 99 MEQ/L Carbon Dioxide Level 33.3 MEQ/L Anion Gap 6 MEQ/L Blood Urea Nitrogen 14 MG/DL Creatinine 0.77 MG/DL Estimat Glomerular Filtration 106 ML/MIN Rate Random Glucose 147 MG/DL Calcium Level 9.0 MG/DL Objective Remarks GENERAL: This is a well-nourished, well-developed patient. SKIN: No rashes, ecchymoses or lesions. Cool and dry. HEAD: Atraumatic. Normocephalic. No temporal or scalp tenderness. EYES: Extraocular motions intact. No scleral icterus. No injection or drainage. CARDIOVASCULAR: Sinus rhythm, normal S1, S2 no S3. RESPIRATORY: Decreased breath sounds bilateral, no wheezing, soft basal crackles heard. GASTROINTESTINAL: Abdomen soft, non-tender, MUSCULOSKELETAL: No clubbing, Cyanosis or edema. NEUROLOGICAL: Awake and alert. Medications and IVs Current Medications Medications (Trade) Dose Ordered Sig/Vishal Route Start Time Stop Time Status Last Admin (NS Flush) 2 ml UNSCH PRN IV FLUSH 12/27/16 03:15 (NS Flush) 2 ml BID IV FLUSH 12/27/16 09:00 01/03/17 09:00 (Tylenol) 650 mg Q4H PRN PO 12/27/16 03:15 (Zofran Inj) 4 mg Q6H PRN IVP 12/27/16 03:15 12/27/16 15:20 (Narcan Inj) 0.4 mg UNSCH PRN IV 12/27/16 03:15 (Lasix Inj) 40 mg BID@09,18 IV PUSH 12/27/16 09:00 Hold 12/29/16 17:51 (Zithromax) 500 mg DAILY PO 12/27/16 09:00 01/03/17 09:01 (Neurontin) 900 mg TID PO 12/27/16 09:00 01/03/17 09:01 ([place] 10-325 Mg) 1 tab Q6H PRN PO 12/27/16 03:15 01/03/17 10:21 (Prinivil) 10 mg BID PO 12/27/16 09:00 Hold 12/28/16 08:44 (Lopressor) 25 mg DAILY PO 12/27/16 09:00 01/03/17 09:00 Miscellaneous Information Patient in critical care unit? Ass... [id number] .XX 12/27/16 21:15 12/27/16 21:15 (Heparin-D5W Inj) 250 ml @ 0 mls/hr TITRATE IV 12/30/16 00:30 01/03/17 11:15 (Heparin Inj) 5,000 units UNSCH PRN IV 12/30/16 00:30 Heparin Sodium (Porcine) 2500 units 2,500 units UNSCH PRN IV 12/30/16 00:30 12/31/16 20:44 (Maxipime Inj/NS Inj) 100 ml @ 200 mls/hr Q12H IV 01/01/17 17:00 01/03/17 05:20 (Mucinex Er) 600 mg BID PO 01/01/17 21:00 01/03/17 09:01 (Coumadin) 7.5 mg ONCE ONCE PO 01/03/17 16:00 01/03/17 16:01 A/P Assessment and Plan 1. New onset congestive heart failure- tower air traffic control specialist Following, Severe Left Ventricular Dysfunction initial BNP 2445, on diuretics with Lasix, at this time in intensive Care unit, CXR on admission moderate Right and a small left pleural effusion, bibasilar consolidation. Mild Cardiomegaly, tower air traffic control specialist following Doctor Juan R. Oliveira-Alphonso. Echocardiogram Large Left Ventricular Apical thrombus, dilated LV, Left Ventricular Hypertrophy, EF 20%, LA mildly dilated, as per tower air traffic control specialist recommended JAEL inhibitors, Started on Coumadin, continue diuresis and Encourage ambulation, do not need Life Vest at Discharge, but will need INR therapeutic for discharge. today 1.8 but he was recommended for Thoracentesis by auth specialist Warfarin stopped. water restriction. 2. Bilateral pleural effusion, worsening right pleural effusion now moderate will need Thoracentesis. 3. Left Ventricular Thrombus read #1. 4. Hypertension controlled. 5. Pneumonia worsening will switch to Cefepime and Azithromycin. continue Bronchodilator, Mucolytic and Incentive spirometry. 6. Acute Kidney injury improved. DVT prophylaxis Heparin and Coumadin. INR 1.8 on Hold warfarin for procedure continue Heparin Drip. Code Status Full Code. Discussed Condition With Patient, Nurse Miss Austin and his in the room. all questions answered to the best of my abilities. Discharge Planning Not yet cleared for discharge Gui Ribeiro MD January 03, 2017 11:57
[2017-01-03] MEDS ORDERED: WARFARIN SOD 7.5 MG TAB PO ONE (16:00)
[2017-01-04] VITALS (21 sets, daily range): BP systolic 90–126; BP diastolic 61–84; PULSE 83–110; RESP 16–20; TEMP 97–98.4; O2SAT 94–100
[2017-01-04] MEDS: ACETAMINOPHEN/HYDROcodone 325 MG/10 MG TAB PO PRN ×3 (01:44→16:42)
[2017-01-04] MEDS: RESP: ALBUTEROL 2.5 MG/IPRATROPIUM 0.5 MG NEB (SCH) NEB ×5 (04:25→19:46)
[2017-01-04] MEDS: CEFEPIME INJ 1,000 MG in SODIUM CHLORIDE 0.9% INJ 100 ML IV SCH ×2 (04:47→16:42)
[2017-01-04 06:32] LABS: APTT (PATIENT) 75.5 SEC (24.3-30.1); INTERNATIONAL NORMALIZED RATIO 1.5 RATIO; PROTHROMBIN TIME - PATIENT 16.4 SEC (9.8-11.6)
--- NOTE | 2017-01-04 08:23 | HHI.PR ---
Subjective Remarks Follow-up CHF, pleural effusions. The patient states that he is still having some shortness of breath, but not as much as before. Denies chest pain currently. No other complaints at this time. Objective Vitals Vital Signs Date Time Temp Pulse Resp B/P Pulse Ox O2 Delivery O2 Flow Rate FiO2 01/04/17 08:05 103 01/04/17 07:51 Nasal Cannula 2.00 21 01/04/17 06:00 97 01/04/17 05:00 98 01/04/17 04:00 107 01/04/17 04:00 Nasal Cannula 2.00 01/04/17 04:00 98.1 107 20 99/73 95 01/04/17 03:00 109 01/04/17 02:00 110 01/04/17 01:00 106 01/04/17 00:00 107 01/04/17 00:00 Nasal Cannula 2.00 01/04/17 00:00 98.4 107 18 122/73 95 01/03/17 23:00 104 01/03/17 22:00 106 01/03/17 21:00 118 01/03/17 20:00 98.0 112 18 107/84 93 01/03/17 20:00 Room Air 01/03/17 20:00 112 01/03/17 19:43 85 Nasal Cannula 2.00 01/03/17 19:00 Room Air 01/03/17 16:16 106 01/03/17 16:16 97.7 97 18 107/69 95 01/03/17 12:45 97.9 86 20 112/81 97 01/03/17 12:45 105 01/03/17 12:18 18 I/O 01/03/17 01/03/17 01/03/17 01/04/17 01/04/17 01/04/17 07:00 15:00 23:00 07:00 15:00 23:00 Intake Total 1060 ml 640 ml 900 ml 96 ml Output Total 1600 ml 2450 ml 1900 ml Balance -540 ml -1810 ml -1000 ml 96 ml Intake Oral 800 ml 640 ml 640 ml IV Total 260 ml 260 ml 96 ml Output Urine Total 1600 ml 2450 ml 1900 ml # Bowel Movements 1 1 1 Result Diagram: 01/03/17 0403 01/03/17 1105 Imaging Last Impressions Chest X-Ray 01/02/17 Signed Impressions: Service Date/Time: Monday, January 02, 2017 11:51 - CONCLUSION: 1. Interval increase in right pleural effusion which is now moderate in size. 2. Patchy opacity remains at the right lung base. 3. There is mild hazy opacity now noted in the left lung. Dann Archer MD Lower Extremity Ultrasound 01/01/17 Signed Impressions: Service Date/Time: Sunday, January 01, 2017 22:11 - CONCLUSION: No DVT of either lower extremity. Delroy Scott MD Objective Remarks General: No acute distress. Heart: Regular rate and rhythm. No murmur. Lungs: Decreased breath sounds in the right base. Breathing is nonlabored. Abdomen: Soft, nontender, nondistended. Extremities: No lower extremity edema. Psych: Alert and oriented. Urinary Catheter: No Vascular Central Line Catheter: No A/P Problem List: (1) CHF (congestive heart failure) ICD Code: I50.9 Status: Acute (2) PNA (pneumonia) ICD Code: J18.9 Status: Acute (3) HTN (hypertension) ICD Code: I10 Status: Chronic (4) Pleural effusion ICD Code: J90 Status: Acute (5) Acute kidney injury ICD Code: N17.9 Status: Acute (6) Left ventricular thrombosis without ID ICD Code: I51.3 Status: Acute Assessment and Plan 1. Acute systolic congestive heart failure: Echocardiogram shows left ventricular hypertrophy, ejection fraction 20%. Appreciate cardiology recommendations. Continue diuretics. Fluid restriction. 2. Bilateral pleural effusions: Appreciate pulmonology recommendations. Planning for thoracentesis. 3. Left ventricular thrombus: On heparin drip until INR is therapeutic. Coumadin is on hold for thoracentesis. 4. Hypertension: Blood pressure controlled. 5. Pneumonia: Continue IV antibiotics, bronchodilators, mucolytic, incentive spirometry. 6. Acute kidney injury: Improved. 7. DVT prophylaxis: Heparin drip, Coumadin. INR 1.5 today. Warfarin on hold for thoracentesis. Problem Qualifiers (1) CHF (congestive heart failure): Qualified Code: I50.21 - Acute systolic congestive heart failure (2) PNA (pneumonia): Qualified Code: J18.9 - Pneumonia of both lower lobes due to infectious organism Toni Collado MD January 04, 2017 08:23
[2017-01-04] MEDS: METOPROLOL TARTRATE 25 MG TAB PO SCH (08:57)
[2017-01-04] MEDS: GABAPENTIN 300 MG CAP PO SCH ×3 (08:57→17:29)
[2017-01-04] MEDS: AZITHROMYCIN 250 MG TAB PO SCH (08:57)
[2017-01-04] MEDS: guaiFENesin E.R. 600 MG TAB PO SCH ×2 (08:57→21:48)
[2017-01-04] MEDS: SODIUM CHLORIDE 0.9% FLUSH 10 ML FLUSH IV FLUSH SCH ×2 (08:57→21:00)
--- NOTE | 2017-01-04 16:07 | RADRPT ---
EXAM DATE/TIME: 01/04/2017 15:49 [facility] COMPARISON: CHEST SINGLE AP, January 02, 2017, 11:51. INDICATIONS : Post thoracentesis. MEDICAL HISTORY : Hypertension. Gastroesophageal reflux disease. Coronary artery disease. SURGICAL HISTORY : None. ENCOUNTER: Subsequent ACUITY: 3 days PAIN SCORE: 0/10 LOCATION: Right chest FINDINGS: A single frontal expiratory view of the chest was performed. Minimal right basal atelectasis. Cardiom egaly. The cardio-mediastinal contours and bronchopulmonary markings are unremarkable for an expiratory exam . Osseous structures are intact. CONCLUSION: No pneumothorax. Evacuation of right pleural effusion. Mariano Oakley MD on January 04, 2017 at 16:04 Board Certified Radiologist. This report was verified electronically.
--- NOTE | 2017-01-04 16:07 | HHI.PR ---
Subjective Remarks ALERT LESS SOB Objective Vital Signs Date Time Temp Pulse Resp B/P Pulse Ox O2 Delivery O2 Flow Rate FiO2 01/04/17 15:32 97.0 83 16 105/75 99 01/04/17 12:21 98.0 93 18 126/80 97 01/04/17 12:19 93 01/04/17 09:06 97.0 103 20 122/84 96 01/04/17 08:05 103 01/04/17 07:51 Nasal Cannula 2.00 21 01/04/17 06:00 97 01/04/17 05:00 98 01/04/17 04:00 107 01/04/17 04:00 Nasal Cannula 2.00 01/04/17 04:00 98.1 107 20 99/73 95 01/04/17 03:00 109 01/04/17 02:00 110 01/04/17 01:00 106 01/04/17 00:00 107 01/04/17 00:00 Nasal Cannula 2.00 01/04/17 00:00 98.4 107 18 122/73 95 01/03/17 23:00 104 01/03/17 22:00 106 01/03/17 21:00 118 01/03/17 20:00 98.0 112 18 107/84 93 01/03/17 20:00 Room Air 01/03/17 20:00 112 01/03/17 19:43 85 Nasal Cannula 2.00 01/03/17 19:00 Room Air 01/03/17 16:16 106 01/03/17 16:16 97.7 97 18 107/69 95 I/O 01/03/17 01/03/17 01/03/17 01/04/17 01/04/17 01/04/17 06:59 14:59 22:59 06:59 14:59 22:59 Intake Total 1060 ml 640 ml 900 ml 96 ml Output Total 1600 ml 2450 ml 1900 ml Balance -540 ml -1810 ml -1000 ml 96 ml Intake Oral 800 ml 640 ml 640 ml IV Total 260 ml 260 ml 96 ml Output Urine Total 1600 ml 2450 ml 1900 ml # Bowel Movements 1 1 1 Result Diagram: 01/03/17 0403 01/03/17 1105 Procedures Cardiac Cath non Non obstructive CAD, Non ischemic Cardiomyopathy Objective Remarks GENERAL: SKIN: Warm and dry. HEAD: Atraumatic. Normocephalic. EYES: Pupils equal and round. No scleral icterus. No injection or drainage. ENT: No nasal bleeding or discharge. Mucous membranes pink and moist. NECK: Trachea midline. No JVD. CARDIOVASCULAR: Regular rate and rhythm. RESPIRATORY: No accessory muscle use.DECREASED BREATH SOUNDS AT BASIS GASTROINTESTINAL: Abdomen soft, non-tender, nondistended. Hepatic and splenic margins not palpable. MUSCULOSKELETAL: Extremities without clubbing, cyanosis, or edema. No obvious deformities. NEUROLOGICAL: Awake and alert. No obvious cranial nerve deficits. Motor grossly within normal limits. Five out of 5 muscle strength in the arms and legs. Normal speech. PSYCHIATRIC: Appropriate mood and affect; insight and judgment normal. Assessment and Plan Assessment and Plan COPD CHF PLEURAL EFFUSION PLAN BRONCHODILATOR THERAPY THERAPY FOR CHF TC TODAY Roxanne Oliveira MD January 04, 2017 16:07
[2017-01-04 16:59] LABS: TOTAL PROTEIN,PLEURAL FLUID 2.5 GM/DL
[2017-01-04 17:48] LABS: PLEURAL FLUID LYMPHS 77 %
[2017-01-05] VITALS (23 sets, daily range): BP systolic 92–130; BP diastolic 65–93; PULSE 91–124; RESP 18–20; TEMP 97.7–98.4; O2SAT 94–100
[2017-01-05] MEDS: RESP: ALBUTEROL 2.5 MG/IPRATROPIUM 0.5 MG NEB (SCH) NEB ×5 (00:24→15:35)
[2017-01-05] MEDS: ACETAMINOPHEN/HYDROcodone 325 MG/10 MG TAB PO PRN ×4 (01:01→21:39)
[2017-01-05] MEDS: CEFEPIME INJ 1,000 MG in SODIUM CHLORIDE 0.9% INJ 100 ML IV SCH ×2 (04:38→17:49)
[2017-01-05 05:34] LABS: INTERNATIONAL NORMALIZED RATIO 1.2 RATIO; PROTHROMBIN TIME - PATIENT 13.4 SEC (9.8-11.6)
[2017-01-05 07:50] LABS: APTT (PATIENT) 60.9 SEC (24.3-30.1)
--- NOTE | 2017-01-05 07:50 | RADRPT ---
EXAM DATE/TIME: 01/04/2017 14:58 [facility] COMPARISON: No previous studies available for comparison. INDICATIONS : Right pleural effusion. MEDICAL HISTORY : Chronic obstructive pulmonary disease. Congestive heart failure. Gastroesophageal reflux disease. Hyp ertension. Asthma. Migraines. Left kidney mass. Fibromyalgia. Osteoporosis. Shingles. Depression. Anx iety. SURGICAL HISTORY : Left knee surgery. ENCOUNTER: Initial ACUITY: 1 week PAIN SCORE: 0/10 LOCATION: Right chest FLUID: Total volume of 2,450 cc of clear, yellow fluid was removed. Fluid was sent to lab for ordered studies. TECHNIQUE: 1. Ultrasound guidance for thoracentesis. 2. Thoracentesis. The risks, benefits, and alternatives to ultrasound guided thoracentesis were explained to the patien t in lay simple terms, including the risk of bleeding and infection. Written and verbal informed con sent was obtained. Appropriate area for thoracentesis was marked under ultrasound guidance with the patient in the uprig ht position. Overlying skin was prepped and draped in the usual sterile fashion and with local anest hetic, a dermatotomy was made with an 11 blade scalpel. A 6 Wolof thoracentesis catheter was placed in the pleural space and fluid was removed. Catheter was then removed and a sterile dressing applie d. There were no immediate complications. The patient tolerated the procedure well and the left the ultrasound suite in stable condition. Chest radiograph is to be obtained. CONCLUSION: Uncomplicated ultrasound guided thoracentesis. Mariano Oakley MD on January 05, 2017 at 7:48 Board Certified Radiologist. This report was verified electronically.
--- NOTE | 2017-01-05 08:31 | HHI.PR ---
Subjective Remarks Follow-up pleural effusion, left ventricular thrombus. Patient had thoracentesis yesterday and states that his breathing is much better today. Denies chest pain, dyspnea. Objective Vitals Vital Signs Date Time Temp Pulse Resp B/P Pulse Ox O2 Delivery O2 Flow Rate FiO2 01/05/17 08:11 21 01/05/17 08:00 112 01/05/17 07:00 110 01/05/17 07:00 96 Room Air 01/05/17 07:00 97.7 108 20 130/93 96 01/05/17 05:00 102 01/05/17 04:00 104 18 100/77 96 01/05/17 04:00 106 01/05/17 03:00 104 01/05/17 02:00 100 01/05/17 01:00 105 01/05/17 00:00 107 01/05/17 00:00 106 18 92/65 94 01/04/17 23:00 100 01/04/17 22:19 Nasal Cannula 2.00 21 01/04/17 22:00 104 01/04/17 21:00 104 01/04/17 20:00 108 01/04/17 20:00 98.1 104 18 112/74 100 01/04/17 19:00 102 01/04/17 16:25 100 18 90/61 100 01/04/17 16:10 100 18 107/65 100 01/04/17 15:32 97.0 83 16 105/75 99 01/04/17 12:21 98.0 93 18 126/80 97 01/04/17 12:19 93 01/04/17 09:06 97.0 103 20 122/84 96 I/O 01/04/17 01/04/17 01/04/17 01/05/17 01/05/17 01/05/17 07:00 15:00 23:00 07:00 15:00 23:00 Intake Total 900 ml 96 ml 1390 ml 480 ml Output Total 1900 ml 1000 ml 1150 ml Balance -1000 ml 96 ml 390 ml -670 ml Intake Oral 640 ml 1200 ml 480 ml IV Total 260 ml 96 ml 190 ml Output Urine Total 1900 ml 1000 ml 1150 ml # Voids 3 # Bowel Movements 1 Result Diagram: 01/03/17 0403 01/03/17 1105 Imaging Last Impressions Thoracentesis Ultrasound 01/04/17 Signed Impressions: Service Date/Time: Wednesday, January 04, 2017 14:58 - CONCLUSION: Uncomplicated ultrasound guided thoracentesis. Mariano Oakley MD Chest X-Ray 01/04/17 Signed Impressions: Service Date/Time: Wednesday, January 04, 2017 15:49 - CONCLUSION: No pneumothorax. Evacuation of right pleural effusion. Mariano Oakley MD Lower Extremity Ultrasound 01/01/17 Signed Impressions: Service Date/Time: Sunday, January 01, 2017 22:11 - CONCLUSION: No DVT of either lower extremity. Delroy Scott MD Objective Remarks General: No acute distress. Sitting up in a chair. Heart: Regular rate and rhythm. No murmur. Lungs: Decreased breath sounds in the right base, improved. Breathing is nonlabored. Abdomen: Soft, nontender, nondistended. Extremities: No lower extremity edema. Psych: Alert and oriented. Urinary Catheter: No Vascular Central Line Catheter: No A/P Problem List: (1) CHF (congestive heart failure) ICD Code: I50.9 Status: Acute (2) PNA (pneumonia) ICD Code: J18.9 Status: Acute (3) HTN (hypertension) ICD Code: I10 Status: Chronic (4) Pleural effusion ICD Code: J90 Status: Acute (5) Acute kidney injury ICD Code: N17.9 Status: Acute (6) Left ventricular thrombosis without CT ICD Code: I51.3 Status: Acute Assessment and Plan 1. Acute systolic congestive heart failure: Echocardiogram shows left ventricular hypertrophy, ejection fraction 20%. Appreciate cardiology recommendations. Continue diuretics. Fluid restriction. 2. Bilateral pleural effusions: Appreciate pulmonology recommendations. Status post thoracentesis yesterday. Symptoms have improved. 3. Left ventricular thrombus: On heparin drip until INR is therapeutic. Restart warfarin today. 4. Hypertension: Blood pressure controlled. 5. Pneumonia: Continue IV antibiotics, bronchodilators, mucolytic, incentive spirometry. 6. Acute kidney injury: Improved. 7. DVT prophylaxis: Heparin drip, Coumadin. INR 1.2 today. Resume warfarin. Problem Qualifiers (1) CHF (congestive heart failure): Qualified Code: I50.21 - Acute systolic congestive heart failure (2) PNA (pneumonia): Qualified Code: J18.9 - Pneumonia of both lower lobes due to infectious organism Stoverink,Toni D. MD January 05, 2017 08:31
[2017-01-05] MEDS: SODIUM CHLORIDE 0.9% FLUSH 10 ML FLUSH IV FLUSH SCH ×2 (09:00→21:00)
[2017-01-05] MEDS: METOPROLOL TARTRATE 25 MG TAB PO SCH (09:12)
[2017-01-05] MEDS: AZITHROMYCIN 250 MG TAB PO SCH (09:12)
[2017-01-05] MEDS: GABAPENTIN 300 MG CAP PO SCH ×3 (09:12→17:48)
[2017-01-05] MEDS: guaiFENesin E.R. 600 MG TAB PO SCH ×2 (09:12→21:39)
[2017-01-05] MEDS: HEPARIN-D5W INJ 250 ML IV SCH (13:18)
[2017-01-05] MEDS: WARFARIN SOD 5 MG TAB PO SCH (16:00)
--- NOTE | 2017-01-05 17:38 | HHI.PR ---
Subjective Remarks ALERT LESS SOB Objective Vital Signs Date Time Temp Pulse Resp B/P Pulse Ox O2 Delivery O2 Flow Rate FiO2 01/05/17 17:00 104 01/05/17 16:00 104 01/05/17 15:00 101 01/05/17 15:00 98.4 101 20 123/66 100 01/05/17 14:00 98 01/05/17 13:00 91 01/05/17 12:00 92 01/05/17 11:00 98 01/05/17 11:00 97.7 104 20 125/80 99 01/05/17 10:00 124 01/05/17 09:00 104 01/05/17 08:11 21 01/05/17 08:00 112 01/05/17 07:00 110 01/05/17 07:00 96 Room Air 01/05/17 07:00 97.7 108 20 130/93 96 01/05/17 05:00 102 01/05/17 04:00 104 18 100/77 96 01/05/17 04:00 106 01/05/17 03:00 104 01/05/17 02:00 100 01/05/17 01:00 105 01/05/17 00:00 107 01/05/17 00:00 106 18 92/65 94 01/04/17 23:00 100 01/04/17 22:19 94 Nasal Cannula 2.00 01/04/17 22:19 Nasal Cannula 2.00 21 01/04/17 22:00 104 01/04/17 21:00 104 01/04/17 20:00 108 01/04/17 20:00 98.1 104 18 112/74 100 01/04/17 19:00 102 I/O 01/04/17 01/04/17 01/04/17 01/05/17 01/05/17 01/05/17 06:59 14:59 22:59 06:59 14:59 22:59 Intake Total 900 ml 96 ml 1390 ml 480 ml 1330 ml Output Total 1900 ml 1000 ml 1150 ml 1500 ml Balance -1000 ml 96 ml 390 ml -670 ml -170 ml Intake Oral 640 ml 1200 ml 480 ml 960 ml IV Total 260 ml 96 ml 190 ml 370 ml Output Urine Total 1900 ml 1000 ml 1150 ml 1500 ml # Voids 3 # Bowel Movements 1 Result Diagram: 01/03/17 0403 01/03/17 1105 Procedures Cardiac Cath non Non obstructive CAD, Non ischemic Cardiomyopathy Objective Remarks GENERAL: SKIN: Warm and dry. HEAD: Atraumatic. Normocephalic. EYES: Pupils equal and round. No scleral icterus. No injection or drainage. ENT: No nasal bleeding or discharge. Mucous membranes pink and moist. NECK: Trachea midline. No JVD. CARDIOVASCULAR: Regular rate and rhythm. RESPIRATORY: No accessory muscle use.DECREASED BREATH SOUNDS AT BASIS GASTROINTESTINAL: Abdomen soft, non-tender, nondistended. Hepatic and splenic margins not palpable. MUSCULOSKELETAL: Extremities without clubbing, cyanosis, or edema. No obvious deformities. NEUROLOGICAL: Awake and alert. No obvious cranial nerve deficits. Motor grossly within normal limits. Five out of 5 muscle strength in the arms and legs. Normal speech. PSYCHIATRIC: Appropriate mood and affect; insight and judgment normal. Assessment and Plan Assessment and Plan COPD CHF PLEURAL EFFUSION PLAN BRONCHODILATOR THERAPY THERAPY FOR CHF TC TODAY Roxanne Oliveira MD January 05, 2017 17:38
[2017-01-06] VITALS (24 sets, daily range): BP systolic 97–120; BP diastolic 45–88; PULSE 90–113; RESP 18–20; TEMP 97.2–98.4; O2SAT 95–99
[2017-01-06] MEDS: CEFEPIME INJ 1,000 MG in SODIUM CHLORIDE 0.9% INJ 100 ML IV SCH ×2 (03:34→17:20)
[2017-01-06] MEDS: HEPARIN-D5W INJ 250 ML IV SCH ×2 (03:40→17:33)
[2017-01-06] MEDS: ACETAMINOPHEN/HYDROcodone 325 MG/10 MG TAB PO PRN ×3 (03:42→20:18)
[2017-01-06 06:17] LABS: AUTOMATED NEUTROPHIL # 7.7 TH/MM3 (1.8-7.7); BASOPHIL # 0.1 TH/MM3 (0-0.2); BASOPHIL % 0.8 % (0.0-2.0); EOSINOPHIL # 1.1 TH/MM3 (0-0.4); EOSINOPHIL % 8.9 % (0.0-4.0); HEMATOCRIT 35.7 % (39.0-51.0); HEMO FLAGS DIFF FINAL; LYMPH % 17.4 % (9.0-44.0); LYMPHOCYTE # 2.1 TH/MM3 (1.0-4.8); MEAN CELL VOLUME 84.4 FL (80.0-100.0); MEAN CORPUSCULAR HEMOGLOBIN 26.3 PG (27.0-34.0); MEAN CORPUSCULAR HGB CONC 31.1 % (32.0-36.0); MONO % 8.6 % (0.0-8.0); NEUT % 64.3 % (16.0-70.0); PLATELET COUNT 258 TH/MM3 (150-450); RED BLOOD COUNT 4.23 MIL/MM3 (4.50-5.90); RED CELL DISTRIBUTION WIDTH 15.5 % (11.6-17.2); WHITE BLOOD COUNT 11.9 TH/MM3 (4.0-11.0)
[2017-01-06 06:34] LABS: APTT (PATIENT) 58.9 SEC (24.3-30.1); INTERNATIONAL NORMALIZED RATIO 1.2 RATIO
[2017-01-06 06:36] LABS: BICARBONATE 34.1 MEQ/L (21.0-32.0); POTASSIUM 4.8 MEQ/L (3.5-5.1)
[2017-01-06] MEDS: AZITHROMYCIN 250 MG TAB PO SCH (08:43)
[2017-01-06] MEDS: GABAPENTIN 300 MG CAP PO SCH ×3 (08:43→17:32)
[2017-01-06] MEDS: METOPROLOL TARTRATE 25 MG TAB PO SCH (08:43)
[2017-01-06] MEDS: guaiFENesin E.R. 600 MG TAB PO SCH ×2 (08:43→20:18)
[2017-01-06] MEDS: SODIUM CHLORIDE 0.9% FLUSH 10 ML FLUSH IV FLUSH SCH ×2 (08:43→20:18)
--- NOTE | 2017-01-06 10:03 | HHI.PR ---
Subjective Remarks Follow-up shortness of breath/acute systolic CHF exacerbation/bilateral pleural effusion/subtherapeutic INR 01/06/17-patient seen and examined, reports significant improvement or shortness of breath and denies any chest pain. INR still subtherapeutic Objective Vitals Vital Signs Date Time Temp Pulse Resp B/P Pulse Ox O2 Delivery O2 Flow Rate FiO2 01/06/17 09:00 113 01/06/17 08:00 108 01/06/17 07:00 92 01/06/17 07:00 97.2 90 18 113/72 95 01/06/17 07:00 95 Room Air 01/06/17 06:00 91 01/06/17 05:00 98 01/06/17 04:00 104 01/06/17 04:00 98.1 104 18 103/84 97 01/06/17 03:00 100 01/06/17 02:00 103 01/06/17 01:00 103 01/06/17 00:00 101 01/06/17 00:00 98.4 102 20 97/78 97 01/06/17 00:00 96 Room Air 01/05/17 23:00 101 01/05/17 22:00 108 01/05/17 21:00 106 01/05/17 20:00 106 01/05/17 20:00 98.2 104 20 110/78 99 01/05/17 19:00 106 01/05/17 18:00 106 01/05/17 17:00 104 01/05/17 16:00 104 01/05/17 15:00 101 01/05/17 15:00 98.4 101 20 123/66 100 01/05/17 14:00 98 01/05/17 13:00 91 01/05/17 12:00 92 01/05/17 11:00 98 01/05/17 11:00 97.7 104 20 125/80 99 01/05/17 10:00 124 I/O 01/05/17 01/05/17 01/05/17 01/06/17 01/06/17 01/06/17 07:00 15:00 23:00 07:00 15:00 23:00 Intake Total 480 ml 1330 ml 480 ml Output Total 1150 ml 1500 ml 1100 ml Balance -670 ml -170 ml -620 ml Intake Oral 480 ml 960 ml 480 ml IV Total 370 ml Output Urine Total 1150 ml 1500 ml 1100 ml # Bowel Movements 1 Result Diagram: 01/06/1752701/06/17527 Imaging Last Impressions Thoracentesis Ultrasound 01/04/17 Signed Impressions: Service Date/Time: Wednesday, January 04, 2017 14:58 - CONCLUSION: Uncomplicated ultrasound guided thoracentesis. Mariano Oakley MD Chest X-Ray 01/04/17 Signed Impressions: Service Date/Time: Wednesday, January 04, 2017 15:49 - CONCLUSION: No pneumothorax. Evacuation of right pleural effusion. Mariano Oakley MD Lower Extremity Ultrasound 01/01/17 Signed Impressions: Service Date/Time: Sunday, January 01, 2017 22:11 - CONCLUSION: No DVT of either lower extremity. Delroy Scott MD Objective Remarks GENERAL: NAD SKIN: Warm and dry. HEAD: Normocephalic. EYES: No scleral icterus. No injection or drainage. NECK: Supple, trachea midline. No JVD or lymphadenopathy. CARDIOVASCULAR: Regular rate and rhythm without murmurs, gallops, or rubs. RESPIRATORY: Breath sounds equal bilaterally. No accessory muscle use. GASTROINTESTINAL: Abdomen soft, non-tender, nondistended. MUSCULOSKELETAL: No cyanosis, or edema. BACK: Nontender without obvious deformity. No CVA tenderness. A/P Problem List: (1) CHF (congestive heart failure) ICD Code: I50.9 Status: Acute (2) PNA (pneumonia) ICD Code: J18.9 Status: Acute (3) HTN (hypertension) ICD Code: I10 Status: Chronic (4) Pleural effusion ICD Code: J90 Status: Acute (5) Acute kidney injury ICD Code: N17.9 Status: Acute (6) Left ventricular thrombosis without [place] ICD Code: I51.3 Status: Acute Assessment and Plan 51-year-old man with 1. Acute systolic congestive heart failure: Echocardiogram with ejection fraction 20%. On diuretics however secondary to low BP Lasix is on hold. Fluid restriction. 2. Bilateral pleural effusions: Status post ultrasound-guided thoracentesis 04/15. Appreciate pulmonology recommendations. Continue with DuoNeb when necessary 3. Left ventricular thrombus: On heparin drip until INR with warfarin. Will discontinue heparin drip when INR greater than 1.9 4. Hypertension: Normotensive on Lopressor 25 mg daily. Lisinopril 10 mg twice a day is on hold secondary to low BP 5. Pneumonia: Continue IV antibiotics including cefepime IV every 12 hours however will discontinue azithromycin which has been started since 12/27/16, bronchodilators, mucolytic, incentive spirometry. 6. Acute kidney injury: Improved. 7. DVT prophylaxis: Heparin drip, Coumadin Problem Qualifiers (1) CHF (congestive heart failure): Qualified Code: I50.21 - Acute systolic congestive heart failure (2) PNA (pneumonia): Qualified Code: J18.9 - Pneumonia of both lower lobes due to infectious organism Mariano Moy MD January 06, 2017 10:03
[2017-01-06] MEDS: WARFARIN SOD 5 MG TAB PO SCH (16:29)
[2017-01-06] MEDS: ONDANSETRON HCL 4 MG/2 ML VIAL IVP PRN (17:20)
--- NOTE | 2017-01-06 19:13 | HHI.PR ---
Subjective Remarks ALERT LESS SOB Objective Vital Signs Date Time Temp Pulse Resp B/P Pulse Ox O2 Delivery O2 Flow Rate FiO2 01/06/17 18:00 101 01/06/17 17:52 98 21 01/06/17 17:00 102 01/06/17 16:00 98 01/06/17 15:00 95 01/06/17 15:00 97.5 101 20 120/88 98 01/06/17 14:00 97 01/06/17 13:00 95 01/06/17 12:00 97 01/06/17 11:00 97.6 95 18 112/45 98 01/06/17 11:00 91 01/06/17 10:35 95 21 01/06/17 10:00 108 01/06/17 09:00 113 01/06/17 08:00 108 01/06/17 07:00 92 01/06/17 07:00 97.2 90 18 113/72 95 01/06/17 07:00 95 Room Air 01/06/17 06:00 91 01/06/17 05:00 98 01/06/17 04:00 104 01/06/17 04:00 98.1 104 18 103/84 97 01/06/17 03:00 100 01/06/17 02:00 103 01/06/17 01:00 103 01/06/17 00:00 101 01/06/17 00:00 98.4 102 20 97/78 97 01/06/17 00:00 96 Room Air 01/05/17 23:00 101 01/05/17 22:00 108 01/05/17 21:00 106 01/05/17 20:00 106 01/05/17 20:00 98.2 104 20 110/78 99 I/O 01/05/17 01/05/17 01/05/17 01/06/17 01/06/17 01/06/17 07:00 15:00 23:00 07:00 15:00 23:00 Intake Total 480 ml 1330 ml 480 ml 960 ml Output Total 1150 ml 1500 ml 1100 ml Balance -670 ml -170 ml -620 ml 960 ml Intake Oral 480 ml 960 ml 480 ml 960 ml IV Total 370 ml Output Urine Total 1150 ml 1500 ml 1100 ml # Voids 6 # Bowel Movements 1 2 Result Diagram: 01/06/17 0528 01/06/17 0528 Procedures Cardiac Cath non Non obstructive CAD, Non ischemic Cardiomyopathy Objective Remarks GENERAL: SKIN: Warm and dry. HEAD: Atraumatic. Normocephalic. EYES: Pupils equal and round. No scleral icterus. No injection or drainage. ENT: No nasal bleeding or discharge. Mucous membranes pink and moist. NECK: Trachea midline. No JVD. CARDIOVASCULAR: Regular rate and rhythm. RESPIRATORY: No accessory muscle use.DECREASED BREATH SOUNDS AT BASIS GASTROINTESTINAL: Abdomen soft, non-tender, nondistended. Hepatic and splenic margins not palpable. MUSCULOSKELETAL: Extremities without clubbing, cyanosis, or edema. No obvious deformities. NEUROLOGICAL: Awake and alert. No obvious cranial nerve deficits. Motor grossly within normal limits. Five out of 5 muscle strength in the arms and legs. Normal speech. PSYCHIATRIC: Appropriate mood and affect; insight and judgment normal. Assessment and Plan Assessment and Plan COPD CHF PLEURAL EFFUSION PLAN BRONCHODILATOR THERAPY THERAPY FOR CHF Roxanne Oliveira MD January 06, 2017 19:13
[2017-01-07] VITALS (9 sets, daily range): BP systolic 100–133; BP diastolic 53–78; PULSE 88–105; RESP 18–20; TEMP 97.3–98.7; O2SAT 95–98
[2017-01-07] MEDS: ACETAMINOPHEN/HYDROcodone 325 MG/10 MG TAB PO PRN ×4 (02:52→21:09)
[2017-01-07] MEDS: CEFEPIME INJ 1,000 MG in SODIUM CHLORIDE 0.9% INJ 100 ML IV SCH ×2 (05:48→16:49)
[2017-01-07 06:35] LABS: APTT (PATIENT) 41.1 SEC (24.3-30.1); INTERNATIONAL NORMALIZED RATIO 1.3 RATIO; PROTHROMBIN TIME - PATIENT 14.1 SEC (9.8-11.6)
[2017-01-07] MEDS: METOPROLOL TARTRATE 25 MG TAB PO SCH (08:52)
[2017-01-07] MEDS: GABAPENTIN 300 MG CAP PO SCH ×3 (08:52→16:49)
[2017-01-07] MEDS: guaiFENesin E.R. 600 MG TAB PO SCH ×2 (08:52→20:41)
[2017-01-07] MEDS: SODIUM CHLORIDE 0.9% FLUSH 10 ML FLUSH IV FLUSH SCH ×2 (08:53→20:44)
[2017-01-07] MEDS: HEPARIN-D5W INJ 250 ML IV SCH (10:24)
--- NOTE | 2017-01-07 11:06 | HHI.PR ---
Subjective Remarks Follow-up shortness of breath/acute systolic CHF exacerbation/bilateral pleural effusion/subtherapeutic INR 01/06/17-patient seen and examined, reports significant improvement or shortness of breath and denies any chest pain. INR still subtherapeutic 01/07/17-patient seen and examined, INR 1.3. No acute event overnight. Twin sister by the bedside Objective Vitals Vital Signs Date Time Temp Pulse Resp B/P Pulse Ox O2 Delivery O2 Flow Rate FiO2 01/07/17 08:51 95 21 01/07/17 08:07 97.6 102 18 115/76 97 01/07/17 07:15 Room Air 01/07/17 06:01 97.6 103 20 106/69 98 01/07/17 04:41 98 01/07/17 00:16 97.3 103 20 133/68 96 01/06/17 21:01 97.2 108 20 109/76 97 01/06/17 21:00 Room Air 01/06/17 21:00 99 01/06/17 20:00 98.2 102 18 109/86 98 01/06/17 18:00 101 01/06/17 17:52 98 21 01/06/17 17:00 102 01/06/17 16:00 98 01/06/17 15:00 95 01/06/17 15:00 97.5 101 20 120/88 98 01/06/17 14:00 97 01/06/17 13:00 95 01/06/17 12:00 97 I/O 01/06/17 01/06/17 01/06/17 01/07/17 01/07/17 01/07/17 07:00 15:00 23:00 07:00 15:00 23:00 Intake Total 480 ml 960 ml Output Total 1100 ml Balance -620 ml 960 ml Intake Oral 480 ml 960 ml Output Urine Total 1100 ml # Voids 7 2 # Bowel Movements 1 2 0 Result Diagram: 01/06/1752701/06/17527 Objective Remarks GENERAL: NAD SKIN: Warm and dry. HEAD: Normocephalic. EYES: No scleral icterus. No injection or drainage. NECK: Supple, trachea midline. No JVD or lymphadenopathy. CARDIOVASCULAR: Regular rate and rhythm without murmurs, gallops, or rubs. RESPIRATORY: Breath sounds equal bilaterally. No accessory muscle use. GASTROINTESTINAL: Abdomen soft, non-tender, nondistended. MUSCULOSKELETAL: No cyanosis; +1 edema LLE. BACK: Nontender without obvious deformity. No CVA tenderness. A/P Problem List: (1) CHF (congestive heart failure) ICD Code: I50.9 Status: Acute (2) PNA (pneumonia) ICD Code: J18.9 Status: Acute (3) HTN (hypertension) ICD Code: I10 Status: Chronic (4) Pleural effusion ICD Code: J90 Status: Acute (5) Acute kidney injury ICD Code: N17.9 Status: Acute (6) Left ventricular thrombosis without [place] ICD Code: I51.3 Status: Acute Assessment and Plan 51-year-old man with 1. Acute systolic congestive heart failure: Echocardiogram with ejection fraction 20%. Resume Lasix over 20 mg by mouth twice a day today 01/07/17. Continue with Fluid restriction. 2. Bilateral pleural effusions: Status post ultrasound-guided thoracentesis 04/15. Appreciate pulmonology recommendations. Continue with DuoNeb when necessary 3. Left ventricular thrombus: On heparin drip until INR with warfarin. INR 1.3 today. Will discontinue heparin drip when INR greater than 1.9 4. Hypertension: Normotensive on Lopressor 25 mg daily. Lisinopril 10 mg twice a day is on hold secondary to low BP 5. Pneumonia: Continue IV antibiotics including cefepime IV every 12 hours , bronchodilators, mucolytic, incentive spirometry. 6. Acute kidney injury: Improved. 7. DVT prophylaxis: Heparin drip, Coumadin Problem Qualifiers (1) CHF (congestive heart failure): Qualified Code: I50.21 - Acute systolic congestive heart failure (2) PNA (pneumonia): Qualified Code: J18.9 - Pneumonia of both lower lobes due to infectious organism Mariano Moy MD January 07, 2017 11:06
[2017-01-07] MEDS: FUROSEMIDE 20 MG TAB PO SCH ×2 (11:15→16:58)
[2017-01-07] MEDS: WARFARIN SOD 5 MG TAB PO SCH (16:48)
[2017-01-07] MEDS: ONDANSETRON HCL 4 MG/2 ML VIAL IVP PRN (23:45)
[2017-01-08] VITALS (8 sets, daily range): BP systolic 100–122; BP diastolic 59–90; PULSE 88–97; RESP 18–20; TEMP 96–97.6; O2SAT 93–100
[2017-01-08] MEDS: HEPARIN-D5W INJ 250 ML IV SCH ×2 (00:57→18:29)
[2017-01-08] MEDS: CEFEPIME INJ 1,000 MG in SODIUM CHLORIDE 0.9% INJ 100 ML IV SCH ×2 (04:52→17:08)
[2017-01-08] MEDS: ACETAMINOPHEN/HYDROcodone 325 MG/10 MG TAB PO PRN ×3 (05:40→17:15)
[2017-01-08] MEDS: ONDANSETRON HCL 4 MG/2 ML VIAL IVP PRN (08:08)
[2017-01-08] MEDS: FUROSEMIDE 20 MG TAB PO SCH ×2 (08:11→17:08)
[2017-01-08] MEDS: guaiFENesin E.R. 600 MG TAB PO SCH ×2 (08:11→20:43)
[2017-01-08] MEDS: METOPROLOL TARTRATE 25 MG TAB PO SCH (08:11)
[2017-01-08] MEDS: GABAPENTIN 300 MG CAP PO SCH ×3 (08:12→17:09)
[2017-01-08] MEDS: SODIUM CHLORIDE 0.9% FLUSH 10 ML FLUSH IV FLUSH SCH ×2 (08:12→20:43)
[2017-01-08 09:04] LABS: APTT (PATIENT) 53.4 SEC (24.3-30.1)
[2017-01-08 09:46] LABS: INTERNATIONAL NORMALIZED RATIO 1.8 RATIO; PROTHROMBIN TIME - PATIENT 20.3 SEC (9.8-11.6)
--- NOTE | 2017-01-08 10:22 | HHI.PR ---
Subjective Remarks Follow-up shortness of breath/acute systolic CHF exacerbation/bilateral pleural effusion/subtherapeutic INR 01/06/17-patient seen and examined, reports significant improvement or shortness of breath and denies any chest pain. INR still subtherapeutic 01/07/17-patient seen and examined, INR 1.3. No acute event overnight. Twin sister by the bedside 01/08/17-patient seen and examined, INR today 1.8, some complaint of shortness of breath otherwise stable. Objective Vitals Vital Signs Date Time Temp Pulse Resp B/P Pulse Ox O2 Delivery O2 Flow Rate FiO2 01/08/17 08:15 95 01/08/17 08:00 97.2 97 18 117/90 99 01/08/17 07:00 Room Air 01/08/17 04:00 97.6 97 20 108/70 96 01/08/17 00:00 Room Air 01/08/17 00:00 97.4 95 20 100/75 95 01/07/17 20:00 Room Air 01/07/17 20:00 88 01/07/17 20:00 97.3 99 20 100/78 96 01/07/17 16:07 98.7 91 18 114/53 97 01/07/17 13:12 105 01/07/17 12:07 97.9 100 18 116/72 97 I/O 01/07/17 01/07/17 01/07/17 01/08/17 01/08/17 01/08/17 07:00 15:00 23:00 07:00 15:00 23:00 Intake Total 360 ml 760 ml 191 ml Balance 360 ml 760 ml 191 ml Intake Oral 360 ml IV Total 760 ml 191 ml # Voids 2 5 # Bowel Movements 0 1 Result Diagram: 01/06/1752701/06/17527 Objective Remarks GENERAL: NAD SKIN: Warm and dry. HEAD: Normocephalic. EYES: No scleral icterus. No injection or drainage. NECK: Supple, trachea midline. No JVD or lymphadenopathy. CARDIOVASCULAR: Regular rate and rhythm without murmurs, gallops, or rubs. RESPIRATORY: Breath sounds equal bilaterally. No accessory muscle use. GASTROINTESTINAL: Abdomen soft, non-tender, nondistended. MUSCULOSKELETAL: No cyanosis; +1 edema LLE. BACK: Nontender without obvious deformity. No CVA tenderness. A/P Problem List: (1) CHF (congestive heart failure) ICD Code: I50.9 Status: Acute (2) PNA (pneumonia) ICD Code: J18.9 Status: Acute (3) HTN (hypertension) ICD Code: I10 Status: Chronic (4) Pleural effusion ICD Code: J90 Status: Acute (5) Acute kidney injury ICD Code: N17.9 Status: Acute (6) Left ventricular thrombosis without [place] ICD Code: I51.3 Status: Acute Assessment and Plan 51-year-old man with 1. Acute systolic congestive heart failure: Echocardiogram with ejection fraction 20%. Continue Lasix 20 mg by mouth twice a day . Continue with Fluid restriction. 2. Bilateral pleural effusions: Status post ultrasound-guided thoracentesis 04/15. Appreciate pulmonology recommendations. Continue with DuoNeb when necessary 3. Left ventricular thrombus: On heparin drip until INR with warfarin. INR 1.8 today. Will discontinue heparin drip when INR greater than 1.9 4. Hypertension: Normotensive on Lopressor 25 mg daily. Lisinopril 10 mg twice a day is on hold secondary to low BP 5. Pneumonia: Continue IV antibiotics including cefepime IV every 12 hours , bronchodilators, mucolytic, incentive spirometry. 6. Acute kidney injury: Improved. 7. DVT prophylaxis: Heparin drip, Coumadin Problem Qualifiers (1) CHF (congestive heart failure): Qualified Code: I50.21 - Acute systolic congestive heart failure (2) PNA (pneumonia): Qualified Code: J18.9 - Pneumonia of both lower lobes due to infectious organism Mariano Moy MD January 08, 2017 10:22
[2017-01-08] MEDS ORDERED: RESP: ALBUTEROL 2.5 MG/IPRATROPIUM 0.5 MG NEB (PRN) NEB (10:30)
[2017-01-08] MEDS: WARFARIN SOD 5 MG TAB PO SCH (17:09)
[2017-01-09] VITALS: BP 110/75; PULSE 99; RESP 20; TEMP 97.4; O2SAT 97
[2017-01-09] MEDS: ACETAMINOPHEN/HYDROcodone 325 MG/10 MG TAB PO PRN ×2 (00:43→08:02)
[2017-01-09 04:00] VITALS: BP 110/62; PULSE 98; RESP 18; TEMP 97; O2SAT 100
[2017-01-09] MEDS: CEFEPIME INJ 1,000 MG in SODIUM CHLORIDE 0.9% INJ 100 ML IV SCH (04:19)
[2017-01-09] MEDS: HEPARIN-D5W INJ 250 ML IV SCH (04:20)
[2017-01-09] MEDS: guaiFENesin E.R. 600 MG TAB PO SCH (07:49)
[2017-01-09] MEDS: FUROSEMIDE 20 MG TAB PO SCH (07:49)
[2017-01-09] MEDS: METOPROLOL TARTRATE 25 MG TAB PO SCH (07:50)
[2017-01-09] MEDS: GABAPENTIN 300 MG CAP PO SCH ×2 (07:50→13:14)
[2017-01-09 08:00] VITALS: BP 118/58; PULSE 94; PULSE 97; RESP 16; TEMP 97.8; O2SAT 99
[2017-01-09] MEDS: ONDANSETRON HCL 4 MG/2 ML VIAL IVP PRN (08:02)
[2017-01-09] MEDS: SODIUM CHLORIDE 0.9% FLUSH 10 ML FLUSH IV FLUSH SCH (08:02)
[2017-01-09 09:32] LABS: HEMATOCRIT 40.2 % (39.0-51.0); MEAN CELL VOLUME 84.2 FL (80.0-100.0); MEAN CORPUSCULAR HEMOGLOBIN 25.6 PG (27.0-34.0); MEAN CORPUSCULAR HGB CONC 30.4 % (32.0-36.0); PLATELET COUNT 308 TH/MM3 (150-450); RED BLOOD COUNT 4.77 MIL/MM3 (4.50-5.90); RED CELL DISTRIBUTION WIDTH 15.6 % (11.6-17.2); REVIEW FLAG FINAL; WHITE BLOOD COUNT 14.5 TH/MM3 (4.0-11.0)
--- NOTE | 2017-01-09 09:37 | HHI.PR ---
Subjective Remarks Follow-up shortness of breath/acute systolic CHF exacerbation/bilateral pleural effusion/subtherapeutic INR 01/06/17-patient seen and examined, reports significant improvement or shortness of breath and denies any chest pain. INR still subtherapeutic 01/07/17-patient seen and examined, INR 1.3. No acute event overnight. Twin sister by the bedside 01/08/17-patient seen and examined, INR today 1.8, some complaint of shortness of breath otherwise stable. 01/09/17-patient seen and examined,stable and no acute event overnight. INR pending this AM Objective Vitals Vital Signs Date Time Temp Pulse Resp B/P Pulse Ox O2 Delivery O2 Flow Rate FiO2 01/09/17 08:00 97.8 94 16 118/58 99 01/09/17 04:00 97.0 98 18 110/62 100 01/09/17 04:00 Room Air 01/09/17 00:00 Room Air 01/09/17 00:00 97.4 99 20 110/75 97 01/08/17 20:26 21 01/08/17 20:00 Room Air 01/08/17 20:00 92 01/08/17 20:00 97.1 91 20 122/70 98 01/08/17 16:00 96.0 88 18 121/87 100 01/08/17 12:00 96.5 88 18 104/59 100 I/O 01/08/17 01/08/17 01/08/17 01/09/17 01/09/17 01/09/17 07:00 15:00 23:00 07:00 15:00 23:00 Intake Total 191 ml 480 ml 1172 ml Output Total 500 ml Balance 191 ml 480 ml 672 ml Intake Oral 480 ml 220 ml IV Total 191 ml 952 ml Output Urine Total 500 ml # Voids 2 2 # Bowel Movements 1 Result Diagram: 01/06/1728 01/06/17527 Imaging Last Impressions Thoracentesis Ultrasound 01/04/17 0000 Signed Impressions: Service Date/Time: Wednesday, January 04, 2017 14:58 - CONCLUSION: Uncomplicated ultrasound guided thoracentesis. Mariano Oakley MD Chest X-Ray 01/04/17 0000 Signed Impressions: Service Date/Time: Wednesday, January 04, 2017 15:49 - CONCLUSION: No pneumothorax. Evacuation of right pleural effusion. Mariano Oakley MD Lower Extremity Ultrasound 01/01/17 0000 Signed Impressions: Service Date/Time: Sunday, January 01, 2017 22:11 - CONCLUSION: No DVT of either lower extremity. Delroy Scott MD Objective Remarks GENERAL: NAD SKIN: Warm and dry. HEAD: Normocephalic. EYES: No scleral icterus. No injection or drainage. NECK: Supple, trachea midline. No JVD or lymphadenopathy. CARDIOVASCULAR: Regular rate and rhythm without murmurs, gallops, or rubs. RESPIRATORY: Breath sounds equal bilaterally. No accessory muscle use. GASTROINTESTINAL: Abdomen soft, non-tender, nondistended. MUSCULOSKELETAL: No cyanosis; +1 edema LLE. BACK: Nontender without obvious deformity. No CVA tenderness. Procedures US-guided thoracentesis A/P Problem List: (1) CHF (congestive heart failure) ICD Code: I50.9 Status: Acute (2) PNA (pneumonia) ICD Code: J18.9 Status: Acute (3) HTN (hypertension) ICD Code: I10 Status: Chronic (4) Pleural effusion ICD Code: J90 Status: Resolved (5) Acute kidney injury ICD Code: N17.9 Status: Resolved (6) Left ventricular thrombosis without [place] ICD Code: I51.3 Status: Acute Assessment and Plan 51-year-old man with 1. Acute systolic congestive heart failure: Echocardiogram with ejection fraction 20%. Continue Lasix 20 mg by mouth twice a day . Continue with Fluid restriction. 2. Bilateral pleural effusions: Status post ultrasound-guided thoracentesis 04/15. Appreciate pulmonology recommendations. Continue with DuoNeb when necessary 3. Left ventricular thrombus: d/c heparin drip and continue warfarin. 4. Hypertension: Normotensive on Lopressor 25 mg daily. Lisinopril 10 mg twice a day is on hold secondary to low BP 5. Pneumonia: d/c cefepime IV every 12 hours , continue bronchodilators, mucolytic, incentive spirometry. 6. Acute kidney injury: Improved. 7. DVT prophylaxis: Heparin drip, Coumadin Problem Qualifiers (1) CHF (congestive heart failure): Qualified Code: I50.21 - Acute systolic congestive heart failure (2) PNA (pneumonia): Qualified Code: J18.9 - Pneumonia of both lower lobes due to infectious organism Mariano Moy MD January 09, 2017 09:36
[2017-01-09 09:39] LABS: APTT (PATIENT) 63.5 SEC (24.3-30.1); INTERNATIONAL NORMALIZED RATIO 2.3 RATIO; PROTHROMBIN TIME - PATIENT 26.6 SEC (9.8-11.6)
[2017-01-09] MEDS ORDERED: COUM5TAB PO (09:39)
[2017-01-09] MEDS ORDERED: HYDR-3583 PO (09:39)
[2017-01-09] MEDS ORDERED: FURO20TA PO (09:39)
[2017-01-09] MEDS ORDERED: POTA-163 PO (09:39)
--- NOTE | 2017-01-09 09:42 | HHI.DS ---
Discharge Summary Admission Date Dec 27, 2016 at 03:08 Discharge Date: January 09, 2017 Admitting Diagnosis New onset CHF (1) CHF (congestive heart failure) ICD Code: I50.9 (2) PNA (pneumonia) ICD Code: J18.9 (3) HTN (hypertension) ICD Code: I10 (4) Pleural effusion ICD Code: J90 (5) Acute kidney injury ICD Code: N17.9 (6) Left ventricular thrombosis without IN ICD Code: I51.3 Procedures US-guided thoracentesis Brief History - From Admission This is a 51-year-old male patient with past medical history which includes asthma and hypertension. Patient reports approximately 4 days ago he began having bilateral lower extremity edema. Initially elevating bilateral lower extremities decreased the edema. Patient reports lately that has not helped any more. Patient also reports shortness of breath for the past 2-3 days. Patient reports shortness of breath is worse with even minimal exertion. Better at rest. Patient denies associated cough. Patient does report he sleeps on approximately 3 pillows at night and is unable to lay flat. Patient denies recent weight gain. Patient also denies chest pain, nausea, vomiting, diarrhea fevers or chills. CBC/BMP: 01/06/17 0528 01/06/17 0528 Significant Findings Laboratory Tests Test 01/07/17 01/08/17 01/08/17 05:04 08:28 09:18 Prothrombin Time 14.1 SEC 20.3 SEC (9.8-11.6) (9.8-11.6) Activated Partial 41.1 SEC 53.4 SEC Thromboplast Time (24.3-30.1) (24.3-30.1) Imaging Last Impressions Thoracentesis Ultrasound 01/04/17 0000 Signed Impressions: Service Date/Time: Wednesday, January 04, 2017 14:58 - CONCLUSION: Uncomplicated ultrasound guided thoracentesis. Mariano Oakley MD Chest X-Ray 01/04/17 0000 Signed Impressions: Service Date/Time: Wednesday, January 04, 2017 15:49 - CONCLUSION: No pneumothorax. Evacuation of right pleural effusion. Mariano Oakley MD Lower Extremity Ultrasound 01/01/17 0000 Signed Impressions: Service Date/Time: Sunday, January 01, 2017 22:11 - CONCLUSION: No DVT of either lower extremity. Delroy Scott MD PE at Discharge GENERAL: NAD SKIN: Warm and dry. HEAD: Normocephalic. EYES: No scleral icterus. No injection or drainage. NECK: Supple, trachea midline. No JVD or lymphadenopathy. CARDIOVASCULAR: Regular rate and rhythm without murmurs, gallops, or rubs. RESPIRATORY: Breath sounds equal bilaterally. No accessory muscle use. GASTROINTESTINAL: Abdomen soft, non-tender, nondistended. MUSCULOSKELETAL: No cyanosis; +1 edema LLE. BACK: Nontender without obvious deformity. No CVA tenderness. Hospital Course 1. Acute systolic congestive heart failure: Echocardiogram with ejection fraction 20%. Treated with Lasix as well as Fluid restriction. Cardiology was consulted and he underwent a cardiac stress test. 2. Bilateral pleural effusions: Status post ultrasound-guided thoracentesis 04/15. He was treated with DuoNeb when necessary. Pulmonary medicine was consulted 3. Left ventricular thrombus: He was starting on heparin bridge with Coumadin with monitoring of INR 4. Hypertension: Normotensive on Lopressor 25 mg daily. Lisinopril 10 mg twice a day 5. Pneumonia: Started on IV antibiotics including cefepime IV every 12 hours , continue bronchodilators, mucolytic, incentive spirometry. 6. Acute kidney injury: Improved. 7. DVT prophylaxis: Heparin drip, Coumadin Pt Condition on Discharge: Stable Discharge Disposition: Discharge Home Discharge Time: > 30 minutes Discharge Instructions Follow up Referrals: PCP Follow-up - 1 Week New Orders: PT/INR - 2-3 Days New Medications: Potassium Chloride ER (Potassium Chloride ER) 20 Meq Tab 20 MEQ PO DAILY Electrolyte Replacement #30 Ref 0 TAB Furosemide (Furosemide) 20 Mg Tab 20 MG PO BID@09,18 Prevent Heart Failure #60 Ref 3 TAB Hydrocodone-Acetaminophen (Hydrocodone-Acetaminophen) 10-325 mg Tab 1 TAB PO Q6H PRN PAIN #10 TAB Warfarin (Coumadin) 5 Mg Tab 5 MG PO DAILY@1600 Prevent Blood Clot #30 Ref 3 TAB Continued Medications: Albuterol Neb (Albuterol Neb) 2.5 Mg/0.5 Ml Neb 2.5 MG NEB Q6HR NEB Note: The Albuterol Sulfate Inhalation Solution is concentrated and must be diluted. Read complete instructions carefully before using. BOX Gabapentin (Gabapentin) 300 Mg Cap 900 MG PO TID #90 Ref 0 CAP Lisinopril (Lisinopril) 10 Mg Tab 10 MG PO BID #30 Ref 0 TAB Metoprolol Tartrate (Metoprolol Tartrate) 25 Mg Tab 25 MG PO DAILY #30 Ref 0 TAB Discontinued Medications: Hydrocodone-Acetaminophen (Lortab) 10-325 Mg Tab 1 TAB PO Q6H PRN PAIN Ref 0 TAB Additional Information Total time for the discharge of the patient over 30 minutes Mariano Moy MD January 09, 2017 09:42
== END 2017-01-09 13:54 | disposition home or self-care (01) | DRG 286 ==
LOC: NEPE 23:19 → NEDA 12-27 03:08 → N06B 12-27 04:10 → HIMN 12-27 19:10 → HCIS 12-29 15:05 → N04A 01-06 20:43
PROVIDERS: ADMIT Hospitalist; ATTEND Hospitalist
PROC: B2111ZZ Fluoroscopy of Multiple Coronary Arteries using Low Osmolar Contrast (ICD-10-PCS; 2016-12-29)
PROC: 4A023N7 Measurement of Cardiac Sampling and Pressure, Left Heart, Percutaneous Approach (ICD-10-PCS; principal; 2016-12-29 10:45)
PROC: 0W993ZZ Drainage of Right Pleural Cavity, Percutaneous Approach (ICD-10-PCS; 2017-01-04)
DX: I11.0 Hypertensive heart disease with heart failure (principal); J18.9 Pneumonia, unspecified organism; R57.8 Other shock; J96.90 Respiratory failure, unspecified, unspecified whether with hypoxia or hypercapnia; N17.9 Acute kidney failure, unspecified; J90 Pleural effusion, not elsewhere classified; I24.0 Acute coronary thrombosis not resulting in myocardial infarction; J44.0 Chronic obstructive pulmonary disease with (acute) lower respiratory infection; J98.11 Atelectasis; I50.21 Acute systolic (congestive) heart failure; M79.7 Fibromyalgia; R00.0 Tachycardia, unspecified; E78.5 Hyperlipidemia, unspecified; I25.2 Old myocardial infarction; I25.10 Atherosclerotic heart disease of native coronary artery without angina pectoris; I42.9 Cardiomyopathy, unspecified; G89.29 Other chronic pain; M54.5 Low back pain; F17.210 Nicotine dependence, cigarettes, uncomplicated; Z23 Encounter for immunization; Z59.0 Homelessness; Z88.6 Allergy status to analgesic agent; Z81.1 Family history of alcohol abuse and dependence; Z82.49 Family history of ischemic heart disease and other diseases of the circulatory system; Z83.3 Family history of diabetes mellitus; Z88.1 Allergy status to other antibiotic agents
CPT/HCPCS: 32555; 36600; 71010; 71020; 80048; 82550; 82552; 82805; 82945; 82948; 83605; 83615; 83735; 83880; 83986; 84100; 84157; 84484; 85007; 85025; 85027; 85610; 85730; 87040; 87070; 87102; 87205; 87206; 87641; 89051; 90732; 93005; 93306; 93454; 93970; 94150; 94640; 94664; 96374; 96375; C1729; C1769; C1893; J0692; J0696; J1644; J1650; J1940; J2250; J2405; J3010; J7050; Q9967

== ENCOUNTER 2017-01-10 02:12 | Inpatient (IN) | payer OTHER ==
[~2017-01-10] VITALS: Ht 185.4 cm; Wt 85.4 kg
[2017-01-10] VITALS (15 sets, daily range): BP systolic 101–138; BP diastolic 61–95; PULSE 67–114; RESP 18–22; TEMP 96.3–98.8; O2SAT 94–100
[~2017-01-10 02:12] MED LIST changes: +ALBU.5I NEB; -ALBU0.086 NEB; -ALBU1AER INH; -BACL10TA PO; +COUM5TAB PO; +FURO20TA PO; -GABA300C3 PO; +GABA300C5 PO; -HTN MED PO; -HYDR-3535 PO; +HYDR-3583 PO; -LISI-360 PO; +LISI10TA3 PO; +METO25TA3 PO; +POTA-163 PO; -PRED20 PO
[2017-01-10] MEDS ORDERED: ACETAMINOPHEN/HYDROcodone 325 MG/10 MG TAB PO ONE (03:00)
--- NOTE | 2017-01-10 03:00 | PD ---
HPI Chief Complaint: Edema Time Seen by Provider: 02:51 Travel History International Travel<30 days: No Contact w/Intl Traveler<30days: No Traveled to known affect area: No History of Present Illness HPI 51-year-old male presents to the emergency department by private transportation in the care of his roommate for evaluation of bilateral pedal edema and pain. Patient states he was just hospitalized for 2 weeks here at [place] for new onset heart failure and during that time he was noted to have swelling of his lower legs and feet. Patient was treated with gabapentin and hydrocodone. Patient states he was discharged from the hospital last evening around 5 PM on Wednesday01/09/17 but did not receive a prescription for pain medication. Last pain medication was administered at 8 AM. Patient does not report any new or recurrent shortness of breath orthopnea or PND. No chest pain. No problems with his history of COPD. Patient did fill his prescription for his inhaler, Coumadin, and Lasix. Patient states he did not receive a prescription for pain medicine. Patient's had no fever or chills. Patient rates pain as severe. Patient states pain is been worsening and his feet since 11 PM. Patient following encouraged his roommate to bring him to the emergency room for further evaluation. PFSH Past Medical History Narrative Medical Arthritis COPD CHF fibromyalgia GERD renal mass, hypertension, shingles migraine ; no tobacco use no alcohol use no substance use; nursing notes reviewed Arthritis: Yes Asthma: Yes Anxiety: Yes Depression: Yes Cancer: No Cardiovascular Problems: Yes (CHF) Diminished Hearing: No Fibromyalgia: Yes GERD: Yes Genitourinary: Yes (mass left kidney) Hypertension: Yes Musculoskeletal: Yes Neurologic: Yes Psychiatric: Yes Integumentary: Yes (reoccuring shingles) Immunizations Current: Yes Migraines: Yes Tetanus Vaccination: Unknown Influenza Vaccination: No Social History Alcohol Use: No Tobacco Use: No Substance Use: No Allergies-Medications (Allergen,Severity, Reaction): Coded Allergies: Ibuprofen (Verified Allergy, Severe, Nausea/Vomiting, 01/10/17) Levaquin (Verified Allergy, Mild, EDEMA, 01/10/17) Ultram (Verified Allergy, Mild, ITCHING, 01/10/17) Reported Meds & Prescriptions Reported Meds & Active Scripts Active Potassium Chloride ER (Potassium Chloride) 20 Meq Tab 20 Meq PO DAILY Hydrocodone-Acetaminophen 10-325 mg Tab 1 Tab PO Q6H PRN Coumadin (Warfarin) 5 Mg Tab 5 Mg PO DAILY@1600 Furosemide 20 Mg Tab 20 Mg PO BID@09,18 Reported Metoprolol Tartrate 25 Mg Tab 25 Mg PO DAILY Lisinopril 10 Mg Tab 10 Mg PO BID Albuterol Neb (Albuterol Sulfate) 2.5 Mg/0.5 Ml Neb 2.5 Mg NEB Q6HR NEB Note: The Albuterol Sulfate Inhalation Solution is concentrated and must be diluted. Read complete instructions carefully before using. Gabapentin 300 Mg Cap 900 Mg PO TID Review of Systems Except as stated in HPI: all other systems reviewed are Neg Physical Exam Narrative GENERAL: Well-developed well-nourished thin male in no acute distress no respiratory distress; sinus tachycardia on telemetry monitor SKIN: Warm and dry. HEAD: Normocephalic. EYES: No scleral icterus. No injection or drainage. NECK: Supple, trachea midline. No JVD or lymphadenopathy. CARDIOVASCULAR: Regular rate and rhythm without murmurs, gallops, or rubs. RESPIRATORY: Breath sounds equal bilaterally. No accessory muscle use. GASTROINTESTINAL: Abdomen soft, non-tender, nondistended. MUSCULOSKELETAL: No cyanosis, bilateral lower leg and pedal edema BACK: Nontender without obvious deformity. No CVA tenderness. Data Data Last Documented VS Orders Acetamin-Hydrocod 325-10 Mg ([place] 10-32 (01/10/17 03:00) Prothrombin Time / Inr (Pt) (01/10/17 03:00) Basic Metabolic Panel (Bmp) (01/10/17 03:00) Chest, Single Ap (01/10/17 ) Complete Blood Count With Diff (01/10/17 03:00) Albuterol-Ipratropium Neb (Duoneb Neb) (01/10/17 03:45) Potassium, Serum (K) (01/10/17 04:15) Furosemide Inj (Lasix Inj) (01/10/17 09:00) Place In Observation (01/10/17 ) Vital Signs (Adult) Q4H (01/10/17 04:39) Activity Oob Ad Idania (01/10/17 04:39) Deputy Chief Executive / Telemetry .CONTINUOUS (01/10/17 04:39) Intake + Output AIDA.QSHIFT (01/10/17 04:39) Sodium Chloride 0.9% Flush (Ns Flush) (01/10/17 04:45) Sodium Chloride 0.9% Flush (Ns Flush) (01/10/17 09:00) Ondansetron Inj (Zofran Inj) (01/10/17 04:45) Bisacodyl Supp (Dulcolax Supp) (01/10/17 04:45) Comprehensive Metabolic Panel (01/11/17 06:00) Complete Blood Count With Diff (01/11/17 06:00) Prothrombin Time / Inr (Pt) (01/11/17 06:00) Pharmacologic Contraindication (01/10/17 04:39) Acetaminophen (Tylenol) (01/10/17 04:45) Acetamin-Hydrocod 325-5 Mg ([place] 5-325 (01/10/17 04:45) Morphine Inj (Morphine Inj) (01/10/17 04:45) Albuterol Concentrated Neb (Albuterol Co (01/10/17 10:00) Gabapentin (Neurontin) (01/10/17 09:00) Metoprolol Tartrate (Lopressor) (01/10/17 09:00) Warfarin (Coumadin) (01/10/17 16:00) Warfarin (Coumadin) Pt Teach (Coumadin B (01/10/17 05:00) Levofloxacin 750 Mg Premix Inj (Levaquin (01/10/17 05:00) Acetamin-Hydrocod 325-10 Mg ([place] 10-32 (01/10/17 05:00) Admit Order (Ed Use Only) (01/10/17 ) ^ Saline Lock (01/10/17 05:03) Resp Oxygen Jann C Titrat 1-4 L (01/10/17 ) Notify Dr: Other (01/10/17 05:03) Sodium Chloride 0.9% Flush (Ns Flush) (01/10/17 09:00) Sodium Chloride 0.9% Flush (Ns Flush) (01/10/17 05:15) Labs MDM Medical Decision Making Medical Screen Exam Complete: Yes Emergency Medical Condition: Yes Medical Record Reviewed: Yes (cardiac catheterization 12/2016 nonischemic cardiomyopathy nonobstructive CAD recommend ongoing administration of JAEL inhibitor as beta blockers anticoagulation for left ventricular thrombus and life vest at the scene) Interpretation(s) EKG sinus tachycardia rate 105 incomplete right bundle branch block noted previously left anterior fascicular block; age-indeterminate septal infarct V1 V2 no acute ST elevation or injury pattern change noted to have T-wave inversion in lead 1 aVL and V5 V6 which has been noted previously Vital Signs Date Time Temp Pulse Resp B/P Pulse Ox O2 Delivery O2 Flow Rate FiO2 01/10/17 02:25 97.6 114 18 136/85 100 Room Air 01/10/17 02:16 105 20 138/61 CBC & BMP Diagram 01/10/17 03:00 cxr: CONCLUSION: 1. Small to moderate right-sided pleural effusion. 2. Right lower lung infiltrate 3. Pulmonary venous congestion. August Elmore MD on January 10, 2017 at 3:26 Board Certified Radiologist. This report was verified electronically. INR: 2.1, therapeutic Differential Diagnosis Pedal edema, pedal pain, narcotic withdrawal, DVT, coagulopathy Narrative Course 51-year-old male with recent new onset CHF pneumonia hypertension pleural effusion of kidney injury left ventricular thrombosis without OH underwent ultrasound-guided thoracentesis without pneumothorax also had cardiac catheterization which identified nonischemic cardiomyopathy nonobstructive CAD and recommendation of ongoing JAEL inhibitor therapy beta abhay therapy and anticoagulation for left ventricular thrombus. Patient with ongoing pedal edema and bilateral lower extremity edema with pain patient treated with Lortab/ hydrocodone 10 mg every 6 hours as needed for pain. Patient discharged with prescription for potassium replacement Lasix 20 mg daily hydrocodone 10/325 warfarin 5 mg daily albuterol neb treatments and rescue inhaler gabapentin lisinopril 10 mg daily and metoprolol 25 mg daily. Patient reportedly not able to afford pain medication and presents with pain in his lower legs and feet at this time no other concerns or complaints. EKG identifies sinus tachycardia with chronic changes incomplete right bundle branch block septal changes V1 V2 QRS with poor progression in V3 chronic inversion of T waves and laterally and 1 aVL and V5 and V6 no acute ST elevation or injury pattern change At 3:35 AM patient reassessed states pain is improving after hydrocodone administration; patient reports that typically if he has access to his albuterol he would normally take and nebulized treatment at this time. Patient states that he has been decreasing the use of his albuterol because he is almost out of the medication and only has to ampules of albuterol left. Patient reports need for refill of albuterol medication. Apparently he did not fill his prescription provided for albuterol. Patient will be given updraft treatment times one Physician Communication Physician Communication discussed with Dr Roberts ---obs Diagnosis Primary Impression: Pleural effusion Additional Impressions: CHF (congestive heart failure) Qualified Code: I50.20 - Systolic congestive heart failure, unspecified congestive heart failure chronicity Acute kidney injury Hyperkalemia COPD (chronic obstructive pulmonary disease) Qualified Code: J43.9 - Pulmonary emphysema, unspecified emphysema type Admitting Information Admitting Physician Requests: Observation Maddy Smith MD January 10, 2017 03:00 2. Right lower lung infiltrate 3. Pulmonary venous congestion. August Elmore MD on January 10, 2017 at 3:26 Board Certified Radiologist. This report was verified electronically. INR: 2.1, therapeutic Differential Diagnosis Pedal edema, pedal pain, narcotic withdrawal, DVT, coagulopathy Narrative Course 51-year-old male with recent new onset CHF pneumonia hypertension pleural effusion of kidney injury left ventricular thrombosis without OH underwent ultrasound-guided thoracentesis without pneumothorax also had cardiac catheterization which identified nonischemic cardiomyopathy nonobstructive CAD and recommendation of ongoing JAEL inhibitor therapy beta abhay therapy and anticoagulation for left ventricular thrombus. Patient with ongoing pedal edema and bilateral lower extremity edema with pain patient treated with Lortab/ hydrocodone 10 mg every 6 hours as needed for pain. Patient discharged with prescription for potassium replacement Lasix 20 mg daily hydrocodone 10/325 warfarin 5 mg daily albuterol neb treatments and rescue inhaler gabapentin lisinopril 10 mg daily and metoprolol 25 mg daily. Patient reportedly not able to afford pain medication and presents with pain in his lower legs and feet at this time no other concerns or complaints. EKG identifies sinus tachycardia with chronic changes incomplete right bundle branch block septal changes V1 V2 QRS with poor progression in V3 chronic inversion of T waves and laterally and 1 aVL and V5 and V6 no acute ST elevation or injury pattern change At 3:35 AM patient reassessed states pain is improving after hydrocodone administration; patient reports that typically if he has access to his albuterol he would normally take and nebulized treatment at this time. Patient states that he has been decreasing the use of his albuterol because he is almost out of the medication and only has to ampules of albuterol left. Patient reports need for refill of albuterol medication. Apparently he did not fill his prescription provided for albuterol. Patient will be given updraft treatment times one Physician Communication Physician Communication discussed with Dr Roberts ---obs Diagnosis Primary Impression: Pleural effusion Additional Impressions: CHF (congestive heart failure) Qualified Code: I50.20 - Systolic congestive heart failure, unspecified congestive heart failure chronicity Acute kidney injury Hyperkalemia COPD (chronic obstructive pulmonary disease) Qualified Code: J43.9 - Pulmonary emphysema, unspecified emphysema type Admitting Information Admitting Physician Requests: Maddy Hough MD January 10, 2017 03:00
[2017-01-10 03:22] LABS: AUTOMATED NEUTROPHIL # 8.9 TH/MM3 (1.8-7.7); BASOPHIL # 0.1 TH/MM3 (0-0.2); BASOPHIL % 0.9 % (0.0-2.0); EOSINOPHIL # 0.2 TH/MM3 (0-0.4); EOSINOPHIL % 1.4 % (0.0-4.0); HEMATOCRIT 37.1 % (39.0-51.0); HEMO FLAGS DIFF FINAL; LYMPH % 20.7 % (9.0-44.0); LYMPHOCYTE # 2.8 TH/MM3 (1.0-4.8); MEAN CELL VOLUME 83.8 FL (80.0-100.0); MEAN CORPUSCULAR HEMOGLOBIN 25.8 PG (27.0-34.0); MEAN CORPUSCULAR HGB CONC 30.8 % (32.0-36.0); MONO % 11.7 % (0.0-8.0); NEUT % 65.3 % (16.0-70.0); PLATELET COUNT 365 TH/MM3 (150-450); RED BLOOD COUNT 4.43 MIL/MM3 (4.50-5.90); RED CELL DISTRIBUTION WIDTH 15.6 % (11.6-17.2); WHITE BLOOD COUNT 13.7 TH/MM3 (4.0-11.0)
--- NOTE | 2017-01-10 03:28 | RADRPT ---
EXAM DATE/TIME: 01/10/2017 03:18 [facility] COMPARISON: CHEST EXPIRATION ONLY, January 04, 2017, 15:49. CHEST SINGLE AP, January 02, 2017, 11:51. INDICATIONS : Bilateral foot pain, shortness of breath. MEDICAL HISTORY : Hypertension. Gastroesophageal reflux disease. CAD SURGICAL HISTORY : None. ENCOUNTER: Initial ACUITY: 1 day PAIN SCORE: 0/10 LOCATION: Bilateral chest FINDINGS: There continues to be an infiltrate in the right lung base along with a small to moderate right pleur al effusion. This was present on the prior study from 01/02/2017. The left lung is clear. The heart siz e is mildly enlarged but stable. There is some pulmonary venous congestion. CONCLUSION: 1. Small to moderate right-sided pleural effusion. 2. Right lower lung infiltrate 3. Pulmonary venous congestion. August Elmore MD on January 10, 2017 at 3:26 Board Certified Radiologist. This report was verified electronically.
[2017-01-10 03:31] LABS: INTERNATIONAL NORMALIZED RATIO 2.1 RATIO; PROTHROMBIN TIME - PATIENT 23.4 SEC (9.8-11.6)
[2017-01-10 03:43] LABS: BICARBONATE 29.9 MEQ/L (21.0-32.0); POTASSIUM 5.4 MEQ/L (3.5-5.1)
[2017-01-10] MEDS ORDERED: RESP: ALBUTEROL 2.5 MG/IPRATROPIUM 0.5 MG NEB (SCH) NEB ONE (03:45)
[2017-01-10] MEDS ORDERED: SODIUM CHLORIDE 0.9% FLUSH 10 ML FLUSH IV FLUSH PRN (04:45)
[2017-01-10] MEDS ORDERED: ACETAMINOPHEN/HYDROcodone 325 MG/5 MG TAB PO PRN (04:45)
[2017-01-10] MEDS ORDERED: BISACODYL 10 MG SUPP RECTAL PRN (04:45)
[2017-01-10] MEDS ORDERED: ACETAMINOPHEN 325 MG TAB PO PRN (04:45)
[2017-01-10] MEDS ORDERED: MORPHINE SULFATE 4 MG/ML INJ IV PRN (04:45)
[2017-01-10] MEDS ORDERED: LEVOFLOXACIN 750 MG PREMIX INJ 150 ML IV SCH (05:00)
--- NOTE | 2017-01-10 05:02 | HHI.HP ---
HPI [facility] Primary Care Physician No Primary Care Physician Admission Diagnosis Diagnoses: (1) CHF (congestive heart failure) Diagnosis: Principal (2) Hyperkalemia Diagnosis: Principal (3) PNA (pneumonia) Diagnosis: Principal (4) HTN (hypertension) Diagnosis: Principal (5) COPD (chronic obstructive pulmonary disease) Diagnosis: Principal Travel History International Travel<30 Days: No Contact w/Intl Traveler <30 Da: No Traveled to Known Affected Are: No History of Present Illness This is a 51-year-old male with a PMH of HTN, COPD, Fibromyalgia, GERD, CHF ( Echo 12/28/16 w/ EF 20%) who presented to the ER w/ complaints of bilateral lower extremity edema and increasing pain.Recent admit 12/27-01/09/17 for CHF, PNA, Pleural Effusion s/p Thoracentesis and Left Ventricular Thrombosis on chronic anticoagulation w/ Coumadin. DC'd yesterday afternoon, however states did not receive prescription for pain medication and at this time returns with increasing lower extremity pain. Per review of discharge records, pt prescribed Hydrocodone/Acetaminophen #10. Also reports progressive SOB and lower extremity edema since discharge yesterday. On arrival, BP 138/61, HR 105, O2 sat 100% on RA, Afebrile. WBC 13.7. K+ 5.4, repeat pending. Creatinine 1.62, previously 0.92 on 01/06/17. INR therapeutic at 2.1. CXR with small to moderate right-sided pleural effusion, right lower lung infiltrate and pulmonary venous congestion. S/p DuoNeb in ER w/ some improvement. Review of Systems Except as stated in HPI: all other systems reviewed are Neg ROS: 14 point review of systems otherwise negative. Past Family Social History Past Medical History PMH: HTN, COPD, Fibromyalgia, GERD, CHF (Echo 12/28/16 w/ EF 20%) Past Surgical History PAST SURGICAL HISTORY: Left Knee Surgery Allergies: Coded Allergies: Ibuprofen (Verified Allergy, Severe, Nausea/Vomiting, 01/10/17) Levaquin (Verified Allergy, Mild, EDEMA, 01/10/17) Ultram (Verified Allergy, Mild, ITCHING, 01/10/17) Family History PAST FAMILY HISTORY: Reviewed. No h/o DM or CAD Social History PAST SOCIAL HISTORY: Negative for alcohol, tobacco or drugs. Physical Exam Vital Signs Vital Signs Date Time Temp Pulse Resp B/P Pulse Ox O2 Delivery O2 Flow Rate FiO2 01/10/17 02:25 97.6 114 18 136/85 100 Room Air 01/10/17 02:16 105 20 138/61 Physical Exam PE: GENERAL: Middle-aged white male in no acute distress. HEENT: PERRLA, EOMI. No scleral icterus or conjunctival pallor. No lid lag or facial droop. CARDIOVASCULAR: Regular rate and rhythm. No obvious murmurs to auscultation. No chest tenderness to palpation. RESPIRATORY: No obvious rhonchi or wheezing. Clear to auscultation. Breath sounds equal bilaterally. GASTROINTESTINAL: Abdomen soft, non-tender, nondistended. BS normal. MUSCULOSKELETAL: Extremities without clubbing, cyanosis. 2+ edema. No obvious deformities. NEUROLOGICAL: Awake, alert and oriented x4. No focal neurologic deficits. Moving both upper and lower extremities spontaneously. Laboratory Laboratory Tests Test 01/10/17 01/10/17 03:00 04:25 White Blood Count 13.7 Red Blood Count 4.43 Hemoglobin 11.4 Hematocrit 37.1 Mean Corpuscular Volume 83.8 Mean Corpuscular Hemoglobin 25.8 Mean Corpuscular Hemoglobin 30.8 Concent Red Cell Distribution Width 15.6 Platelet Count 365 Mean Platelet Volume 10.2 Neutrophils (%) (Auto) 65.3 Lymphocytes (%) (Auto) 20.7 Monocytes (%) (Auto) 11.7 Eosinophils (%) (Auto) 1.4 Basophils (%) (Auto) 0.9 Neutrophils # (Auto) 8.9 Lymphocytes # (Auto) 2.8 Monocytes # (Auto) 1.6 Eosinophils # (Auto) 0.2 Basophils # (Auto) 0.1 CBC Comment DIFF FINAL Differential Comment Prothrombin Time 23.4 Prothromb Time International 2.1 Ratio Sodium Level 131 Potassium Level 5.4 5.5 Chloride Level 94 Carbon Dioxide Level 29.9 Anion Gap 7 Blood Urea Nitrogen 49 Creatinine 1.62 Estimat Glomerular Filtration 45 Rate Random Glucose 99 Calcium Level 8.3 Result Diagram: 01/10/17 0300 01/10/17 0425 Assessment and Plan Problem List: (1) CHF (congestive heart failure) ICD Code: I50.9 Status: Acute (2) COPD (chronic obstructive pulmonary disease) ICD Code: J44.9 Status: Acute (3) PNA (pneumonia) ICD Code: J18.9 Status: Acute (4) TRAM (acute kidney injury) ICD Code: N17.9 Status: Acute (5) Hyperkalemia ICD Code: E87.5 Status: Acute (6) HTN (hypertension) ICD Code: I10 Status: Chronic Assessment and Plan A/P: 1. CHF: Acute on Chronic. Systolic. Echo 12/28/16 w/ EF 20%, s/p eval by Cardiology, recent admit 12/27-01/09/17 for CHF, Pleural Effusion s/p Thoracentesis and PNA, reports filling prescriptions at time of discharge. Now w/ SOB and progressive LE edema. CXR w/ small to moderate right-sided pleural effusion and pulmonary venous congestion, images reviewed by me. Diuresis as tolerated, caution w/ TRAM. Monitor I/O. 2. PNA: CXR w/ RLL infiltrate, images reviewed by me. Afebrile, WBC 13. Will start on treatment w/ IV Abx. DuoNeb prn. 3. COPD: Chronic Respiratory Failure, stable. DuoNeb prn. 4. TRAM: Creatinine 1.62, previously 0.92 on 01/06/17, caution w/ diuresis, will monitor, repeat labs in am. 5. Hyperkalemia: K+ 5.4, slight hemolysis noted, repeat K+ pending, will treat if needed. 6. Left Ventricular Thrombus: On Coumadin, INR therapeutic at 2.1, will resume Coumadin. 7. HTN: Controlled. Resume home medications. Monitor BP. 8. DVT Prophylaxis: On Coumadin as above. 9. Social work for d/c planning as needed. 10. Case discussed w/ ER physician at length. Problem Qualifiers (1) CHF (congestive heart failure): Qualified Code: I50.20 - Systolic congestive heart failure, unspecified congestive heart failure chronicity (2) COPD (chronic obstructive pulmonary disease): Qualified Code: J43.9 - Pulmonary emphysema, unspecified emphysema type Eda Roberts MD January 10, 2017 05:02
[2017-01-10] MEDS ORDERED: DEXTROSE 50% IN WATER 50 ML VIAL(D50) IV PUSH ONE (05:15)
[2017-01-10] MEDS ORDERED: SODIUM BICARBONATE 8.4% INJ 50 MEQ/50 ML SYR IV PUSH ONE (05:15)
[2017-01-10] MEDS ORDERED: SODIUM CHLORIDE 0.9% FLUSH 10 ML FLUSH IVF PRN (05:15)
[2017-01-10] MEDS ORDERED: INSULIN HUMAN REGULAR 1,000 UNITS/10 ML VIAL IV PUSH ONE (05:15)
[2017-01-10] MEDS ORDERED: CALCIUM GLUCONATE INJ 1 GM in DEXTROSE 5% IN WATER 100ML INJ 100 ML IV ONE ×2 (05:15)
[2017-01-10] MEDS: ONDANSETRON HCL 4 MG/2 ML VIAL IVP PRN (06:13)
[2017-01-10] MEDS: cefTRIAXone INJ 1,000 MG in SODIUM CHLORIDE 0.9% INJ 100 ML IV SCH (06:22)
[2017-01-10] MEDS: FUROSEMIDE 20 MG/2 ML VIAL IV PUSH SCH ×2 (08:30→19:01)
[2017-01-10] MEDS: GABAPENTIN 300 MG CAP PO SCH ×3 (08:30→18:00)
[2017-01-10] MEDS: SODIUM CHLORIDE 0.9% FLUSH 10 ML FLUSH IV FLUSH SCH ×2 (08:31→20:59)
[2017-01-10] MEDS: AZITHROMYCIN INJ 500 MG in SODIUM CHLOR 0.9% 250 ML INJ 250 ML IV SCH (08:31)
[2017-01-10] MEDS ORDERED: SODIUM CHLORIDE 0.9% FLUSH 10 ML FLUSH IV FLUSH SCH (09:00)
[2017-01-10] MEDS ORDERED: METOPROLOL TARTRATE 25 MG TAB PO SCH (09:00)
[2017-01-10] MEDS: RESP: ALBUTEROL CONC 2.5 MG/0.5 ML NEB NEB SCH ×3 (10:08→20:23)
--- NOTE | 2017-01-10 15:02 | EKG ---
Date Performed: 01/10/2017 Time Performed: 08:35:46 PTAGE: 51 years EKG: Sinus rhythm WITH OCCASIONAL VENTRICULAR PREMATURE COMPLEXES LEFT ATRIAL ENLARGEMENT INCOMPLETE RIGHT BUNDLE BRAN CH BLOCK LEFT ANTERIOR FASCICULAR BLOCK ST DEVIATION AND MODERATE T-WAVE ABNORMALITY, CONSIDER LATERA L ISCHEMIA Since previous tracing, no significant change noted ABNORMAL ECG PREVIOUS TRACING : 01/10/2017 02.33 DOCTOR: Evelyn Lange Interpretating Date/Time 01/10/2017 15:01:37
--- NOTE | 2017-01-10 15:02 | EKG ---
Date Performed: 01/10/2017 Time Performed: 02:33:07 PTAGE: 51 years EKG: SINUS TACHYCARDIA LEFT ATRIAL ENLARGEMENT INCOMPLETE RIGHT BUNDLE BRANCH BLOCK LEFT ANTERIO R FASCICULAR BLOCK SEPTAL MYOCARDIAL INFARCTION MODERATE T-WAVE ABNORMALITY, CONSIDER LATERAL ISCHEMI A Since previous tracing, no significant change noted ABNORMAL ECG PREVIOUS TRACING : 12/27/2016 18.55.36 DOCTOR: Evelyn Lange Interpretating Date/Time 01/10/2017 15:01:11
[2017-01-10] MEDS: WARFARIN SOD 5 MG TAB PO SCH (17:44)
[2017-01-10] MEDS: ACETAMINOPHEN/HYDROcodone 325 MG/10 MG TAB PO PRN ×2 (17:45→22:25)
[2017-01-10 17:59] LABS: BICARBONATE 28.9 MEQ/L (21.0-32.0); POTASSIUM 4.8 MEQ/L (3.5-5.1)
[2017-01-11] MEDS: RESP: ALBUTEROL CONC 2.5 MG/0.5 ML NEB NEB SCH (03:12)
[2017-01-11 04:11] VITALS: BP 101/65; PULSE 97; RESP 20; TEMP 97.6; O2SAT 96
[2017-01-11] MEDS: ONDANSETRON HCL 4 MG/2 ML VIAL IVP PRN (04:15)
[2017-01-11] MEDS: ACETAMINOPHEN/HYDROcodone 325 MG/10 MG TAB PO PRN ×3 (04:16→21:48)
[2017-01-11] MEDS: cefTRIAXone INJ 1,000 MG in SODIUM CHLORIDE 0.9% INJ 100 ML IV SCH (04:56)
[2017-01-11] MEDS: SODIUM CHLORIDE 0.9% FLUSH 10 ML FLUSH IV FLUSH SCH ×2 (08:17→21:00)
[2017-01-11] MEDS: AZITHROMYCIN INJ 500 MG in SODIUM CHLOR 0.9% 250 ML INJ 250 ML IV SCH (08:17)
[2017-01-11] MEDS: GABAPENTIN 300 MG CAP PO SCH ×3 (08:18→17:28)
[2017-01-11] MEDS: FUROSEMIDE 20 MG/2 ML VIAL IV PUSH SCH ×3 (08:18→17:28)
[2017-01-11 08:22] LABS: AUTOMATED NEUTROPHIL # 8.3 TH/MM3 (1.8-7.7); BASOPHIL # 0.2 TH/MM3 (0-0.2); BASOPHIL % 1.4 % (0.0-2.0); EOSINOPHIL # 0.4 TH/MM3 (0-0.4); EOSINOPHIL % 3.4 % (0.0-4.0); HEMATOCRIT 35.7 % (39.0-51.0); HEMO FLAGS DIFF FINAL; LYMPH % 19.8 % (9.0-44.0); LYMPHOCYTE # 2.5 TH/MM3 (1.0-4.8); MEAN CELL VOLUME 83.1 FL (80.0-100.0); MEAN CORPUSCULAR HEMOGLOBIN 26.3 PG (27.0-34.0); MEAN CORPUSCULAR HGB CONC 31.6 % (32.0-36.0); MONO % 8.9 % (0.0-8.0); NEUT % 66.5 % (16.0-70.0); PLATELET COUNT 321 TH/MM3 (150-450); RED CELL DISTRIBUTION WIDTH 15.7 % (11.6-17.2); WHITE BLOOD COUNT 12.5 TH/MM3 (4.0-11.0)
[2017-01-11 08:30] VITALS: BP 108/68
[2017-01-11 08:31] LABS: INTERNATIONAL NORMALIZED RATIO 2.2 RATIO; PROTHROMBIN TIME - PATIENT 24.9 SEC (9.8-11.6)
[2017-01-11 08:50] LABS: ALKALINE PHOSPHATASE 133 U/L (45-117); ALT (GPT) 192 U/L (12-78); ANION GAP 5 MEQ/L (5-15); AST (GOT) 102 U/L (15-37); BICARBONATE 34.8 MEQ/L (21.0-32.0); BLOOD UREA NITROGEN 38 MG/DL (7-18); CHLORIDE 92 MEQ/L (98-107); GLOMERULAR FILTRATION RATE 59 ML/MIN (>89); POTASSIUM 4.4 MEQ/L (3.5-5.1); SODIUM (NA) 132 MEQ/L (136-145); TOTAL BILIRUBIN ADULT 0.3 MG/DL (0.2-1.0)
--- NOTE | 2017-01-11 09:19 | HHI.PR ---
Subjective Remarks Follow-up for CHF exacerbation. The patient states that after he was discharged to his home for about 12 hours, but was having significant pain and swelling of his lower extremities. He also states that he felt fatigued and short of breath with exertion. He continues to have swelling in his legs, slightly improved overnight. He complains of pain and swelling in his right arm after an IV was placed yesterday. He complains of right-sided abdominal distention and discomfort today. He does report an occasional cough with green- yellow sputum. Afebrile, no specific chills. Objective Vitals Vital Signs Date Time Temp Pulse Resp B/P Pulse Ox O2 Delivery O2 Flow Rate FiO2 01/11/17 08:30 108/68 01/11/17 04:11 97.6 97 20 101/65 96 01/10/17 23:58 97.5 98 20 101/62 95 01/10/17 22:06 97 01/10/17 20:27 98 01/10/17 18:56 19 101/75 01/10/17 18:49 18 01/10/17 17:29 98.8 95 18 104/70 94 01/10/17 12:00 98.4 87 18 121/84 97 01/10/17 10:59 102 01/10/17 10:13 97 21 I/O 01/10/17 01/10/17 01/10/17 01/11/17 01/11/17 01/11/17 07:00 15:00 23:00 07:00 15:00 23:00 Intake Total 1200 ml Output Total 1500 ml Balance -300 ml Intake Oral 1200 ml Output Urine Total 1500 ml # Voids 2 Result Diagram: 01/11/17 0809 01/11/17 0809 Imaging Last Impressions Chest X-Ray 01/10/17 0000 Signed Impressions: Service Date/Time: Tuesday, January 10, 2017 03:18 - CONCLUSION: 1. Small to moderate right-sided pleural effusion. 2. Right lower lung infiltrate 3. Pulmonary venous congestion. August Elmore MD Objective Remarks GENERAL: Well-developed well-nourished. In no acute distress. SKIN: Warm and dry. RUQ with palpable and tender superficial veins. HEENT: Normocephalic. Pupils equal and round. Mucous membranes pink and moist. JVD. CARDIOVASCULAR: Regular rate and rhythm. No murmur appreciated. RESPIRATORY: No accessory muscle use. Clear to auscultation. Breath sounds equal bilaterally. Diminished breath sounds in the right base and left basilar crackles. GASTROINTESTINAL: Abdomen soft, non-tender, mildly distended. Bowel sounds x4. MUSCULOSKELETAL: No obvious deformities. No clubbing or cyanosis. Trace edema on the right and 2+ edema on the left. NEUROLOGICAL: Awake and alert. No focal neurological deficits. Moves upper and lower extremities spontaneously. Normal speech. PSYCHIATRIC: Anxious mood and affect; insight and judgment normal. A/P Problem List: (1) CHF (congestive heart failure) ICD Code: I50.9 Status: Acute (2) COPD (chronic obstructive pulmonary disease) ICD Code: J44.9 Status: Chronic (3) PNA (pneumonia) ICD Code: J18.9 Status: Acute (4) TRAM (acute kidney injury) ICD Code: N17.9 Status: Resolved (5) Hyperkalemia ICD Code: E87.5 Status: Resolved Assessment and Plan 51-year-old male with a PMH of HTN, COPD, Fibromyalgia, GERD, CHF (Echo 12/28/16 w / EF 20%) who presented w/ complaints of bilateral lower extremity edema and increasing pain CHF: Acute on Chronic. Systolic. Echo 12/28/16 w/ EF 20%, s/p eval by Cardiology, recent admit 12/27-01/09/17 for CHF, Pleural Effusion s/p Thoracentesis and PNA. Now w/ SOB and progressive LE edema. CXR w/ small to moderate right-sided pleural effusion and pulmonary venous congestion. IV Lasix as tolerated. Monitor I/O. Start carvedilol. BRANDON hose for edema. [place] prn lower extremity discomfort. PT for DECKER. PNA: CXR w/ RLL infiltrate. Afebrile, WBC 13. Productive cough. Continue IV Abx. DuoNeb prn. TRAM: Creatinine 1.62, previously 0.92 on 01/06/17. Improving with diuresis, creatinine 1.27. Monitor. Hyperkalemia: K+ 5.4, slight hemolysis noted, on potassium supplementation at home. Hold supplement. Potassium improved, 4.4. Left Ventricular Thrombus: Seen on recent echocardiogram, reviewed. On Coumadin , INR therapeutic at 2.1, continue Coumadin. Abdominal pain and distention: Positive fluid wave. Elevated LFTs, new finding. Check abdominal ultrasound. Check hepatitis panel. Consult gastroenterology. RUE with subsequent back thrombophlebitis: Check ultrasound to rule out DVT, however doubtful with therapeutic INR. Warm compresses. DVT Prophylaxis: On Coumadin as above. Discharge Planning Awaiting clinical improvement of CHF. Follow up GI workup and recommendations. Problem Qualifiers (1) CHF (congestive heart failure): Qualified Code: I50.23 - Acute on chronic systolic congestive heart failure (2) COPD (chronic obstructive pulmonary disease): Qualified Code: J43.9 - Pulmonary emphysema, unspecified emphysema type Artur Jacobson January 11, 2017 09:19
[2017-01-11 09:29] VITALS: O2SAT 92
[2017-01-11] MEDS ORDERED: PNEUMOCOCCAL POLYVALENT INJ 25 MCG/0.5 ML SYR IM ONE (10:00)
--- NOTE | 2017-01-11 10:22 | RADRPT ---
EXAM DATE/TIME: 01/11/2017 09:38 [facility] COMPARISON: US GUIDED THORACENTESIS RIGHT, January 04, 2017, 14:58. INDICATIONS : Swelling of right arm. MEDICAL HISTORY : Chronic obstructive pulmonary disease. Congestive heart failure. GERD. HTN. Asthma. Fibromyalgia. Osteoporosis. Shingles. Depression. Anxiety. Migraines. Left kidney mass. SURGICAL HISTORY : Left knee surgery. ENCOUNTER: Subsequent ACUITY: 1 day PAIN SCORE: 3/10 LOCATION: Right arm. FINDINGS: The examination demonstrates thrombosis of the cephalic vein. There is spontaneous flow documented in the brachial, basilic, axillary, and subclavian veins. The v essels are compressible and augmentation response is documented. No filling defects are seen. The f low is phasic with respiration. Direction of flow in the jugular vein is caudal. CONCLUSION: 1. Thrombosis of the cephalic vein. The remainder of the venous system of the right upper extremity i s widely patent. Josh Cadet MD on January 11, 2017 at 10:19 Board Certified Radiologist. This report was verified electronically.
[2017-01-11 10:26] VITALS: PULSE 105
--- NOTE | 2017-01-11 11:20 | PD.CONS ---
HPI History of Present Illness This is a 51 year old male admitted for shortness of breath and leg pains. He reports having abdominal pain for the last two weeks, dull, moderately severe, right upper quadrant, associated with enlargement of abdomen and not associated with nausea or vomiting. This is something new for him. He reports recent constipation passing small hard stools. He does not take a laxative at home. He is eating well in the hospital. Denies prior colonoscopy or abdominal surgery]. PFSH Past Medical History PMH: HTN, COPD, Fibromyalgia, GERD, CHF (Echo 12/28/16 w/ EF 20%) Past Surgical History PAST SURGICAL HISTORY: Left Knee Surgery Coded Allergies: Ibuprofen (Verified Allergy, Severe, Nausea/Vomiting, 01/10/17) Levaquin (Verified Allergy, Mild, EDEMA, 01/10/17) Ultram (Verified Allergy, Mild, ITCHING, 01/10/17) Family History PAST FAMILY HISTORY: Reviewed. No h/o DM or CAD Social History PAST SOCIAL HISTORY: Negative for alcohol, tobacco or drugs. Review of Systems Gastrointestinal: COMPLAINS OF: Abdominal pain (Per HPI) Musculoskeletal: COMPLAINS OF: Joint pain, Muscle aches, Stiffness, Joint Swelling, Back pain, Neck pain GI Exam Vitals I&O Vital Signs Date Time Temp Pulse Resp B/P Pulse Ox O2 Delivery O2 Flow Rate FiO2 01/11/17 10:26 105 01/11/17 09:29 92 21 01/11/17 08:30 108/68 01/11/17 04:11 97.6 97 20 101/65 96 01/10/17 23:58 97.5 98 20 101/62 95 01/10/17 22:06 97 01/10/17 20:27 98 01/10/17 18:56 19 101/75 01/10/17 18:49 18 01/10/17 17:29 98.8 95 18 104/70 94 01/10/17 12:00 98.4 87 18 121/84 97 I/O 01/10/17 01/10/17 01/10/17 01/11/17 01/11/17 01/11/17 07:00 15:00 23:00 07:00 15:00 23:00 Intake Total 1200 ml Output Total 1500 ml Balance -300 ml Intake Oral 1200 ml Output Urine Total 1500 ml # Voids 2 Laboratory Test 01/10/17 01/11/17 17:26 08:09 Sodium Level 131 MEQ/L 132 MEQ/L Potassium Level 4.8 MEQ/L 4.4 MEQ/L Chloride Level 95 MEQ/L 92 MEQ/L Carbon Dioxide Level 28.9 MEQ/L 34.8 MEQ/L Anion Gap 7 MEQ/L 5 MEQ/L Blood Urea Nitrogen 44 MG/DL 38 MG/DL Creatinine 1.28 MG/DL 1.27 MG/DL Estimat Glomerular Filtration 59 ML/MIN 59 ML/MIN Rate Random Glucose 93 MG/DL 96 MG/DL Calcium Level 8.6 MG/DL 8.3 MG/DL White Blood Count 12.5 TH/MM3 Red Blood Count 4.30 MIL/MM3 Hemoglobin 11.3 GM/DL Hematocrit 35.7 % Mean Corpuscular Volume 83.1 FL Mean Corpuscular Hemoglobin 26.3 PG Mean Corpuscular Hemoglobin 31.6 % Concent Red Cell Distribution Width 15.7 % Platelet Count 321 TH/MM3 Mean Platelet Volume 9.4 FL Neutrophils (%) (Auto) 66.5 % Lymphocytes (%) (Auto) 19.8 % Monocytes (%) (Auto) 8.9 % Eosinophils (%) (Auto) 3.4 % Basophils (%) (Auto) 1.4 % Neutrophils # (Auto) 8.3 TH/MM3 Lymphocytes # (Auto) 2.5 TH/MM3 Monocytes # (Auto) 1.1 TH/MM3 Eosinophils # (Auto) 0.4 TH/MM3 Basophils # (Auto) 0.2 TH/MM3 CBC Comment DIFF FINAL Differential Comment Prothrombin Time 24.9 SEC Prothromb Time International 2.2 RATIO Ratio Total Bilirubin 0.3 MG/DL Aspartate Amino Transf 102 U/L (AST/SGOT) Alanine Aminotransferase 192 U/L (ALT/SGPT) Alkaline Phosphatase 133 U/L Total Protein 7.2 GM/DL Albumin 2.8 GM/DL Physical Examination HEENT: Pupils round and reactive to light; normocephalic; atraumatic; no jaundice. Throat is clear. NECK: Neck is supple, no JVD, no lymphadenopathy. CHEST: Chest is clear to auscultation and percussion. No spider angiomas CARDIAC: Regular rate and rhythm with no murmur gallop or rubs. ABDOMEN: Soft, distended more in RUQ bowel sounds are present in all four quadrants. EXTREMITIES: No clubbing, cyanosis. Feet are swollen and edematous and brightly erythematous SKIN: Normal; no rash; no jaundice. [employer] ELECT[employer]ICIAN: No focal deficits; alert and oriented times three. Assessment and Plan Plan CT abdomen and pelvis US of RUQ Miralax 17gm po BID Stool for occult blood Dejan Kelly MD January 11, 2017 11:20
[2017-01-11 11:36] VITALS: BP 109/67; PULSE 78; RESP 18; TEMP 98.8; O2SAT 97
[2017-01-11] MEDS ORDERED: DIATRIZOATE MEGLUM/DIATRIZOATE SOD 9 ML CUP PO ONE (12:30)
[2017-01-11] MEDS: CARVEDILOL 3.125 MG TAB PO SCH ×2 (12:32→21:48)
[2017-01-11] MEDS: POLYETHYLENE GLYCOL 17 GM PKG PO SCH ×2 (15:15→21:00)
--- NOTE | 2017-01-11 15:19 | RADRPT ---
EXAM DATE/TIME: 01/11/2017 14:15 [facility] COMPARISON: No previous studies available for comparison. INDICATIONS : Evaluate for ascites. MEDICAL HISTORY : Chronic obstructive pulmonary disease. Congestive heart failure. GERD. HTN. Asthma. Fibromyalgia. Osteoporosis. Shingles. Depression. Anxiety. Migraines. Left kidney mass. SURGICAL HISTORY : Left knee surgery. ENCOUNTER: Subsequent ACUITY: 1 day PAIN SCORE: 8/10 LOCATION: Four quadrant. AREA EVALUATED: Four quadrant. FINDINGS: Imaging of the abdomen and pelvis was performed to evaluate for ascites for possible paracentesis. CONCLUSION: There is no significant ascites evident. Dru Cadet MD FACR on January 11, 2017 at 15:16 Board Certified Radiologist. This report was verified electronically.
--- NOTE | 2017-01-11 15:31 | RADRPT ---
EXAM DATE/TIME: 01/11/2017 14:24 [place] Corrected on: January 11, 2017; [facility] COMPARISON: No previous studies available for comparison. INDICATIONS : Abdominal pain. MEDICAL HISTORY : Chronic obstructive pulmonary disease. Congestive heart failure. GERD. HTN. Asthma. Fibromyalgia. Osteoporosis. Shingles. Depression. Anxiety. Migraines. Left kidney mass. SURGICAL HISTORY : Left knee surgery. ENCOUNTER: Subsequent ACUITY: 1 day PAIN SCORE: 8/10 LOCATION: Bilateral upper quadrant MEASUREMENTS: LIVER: 20.0 cm length COMMON DUCT: Non-visualized RIGHT KIDNEY: 11.3 x 5.7 x 6.6 cm LEFT KIDNEY: 11.6 x 5.8 x 5.9 cm SPLEEN: 10.9 cm length AORTA: 2.2cm maximal FINDINGS: LIVER: The liver is enlarged. Without ductal dilatation. COMMON DUCT: Measures 6 mm. GALLBLADDER: As they thickened wall with some fluid around the wall. There are no stones identified. PANCREAS: Poorly visualized. RIGHT KIDNEY: 4 cm mass right kidney. LEFT KIDNEY: No hydronephrosis, stone or mass. SPLEEN: No focal lesion. AORTA: Not seen because of bowel gas IVC: Not seen because of bowel gas Moderate ascites is evident. CONCLUSION: 4 cm mass right kidney. CT scan is suggested. Moderate ascites with gallbladder wall thickening. T here is some fluid around the gallbladder probably related to ascites. There are no gallstones. The re is as 6 mm of common duct. Dru Cadet MD FACR on January 11, 2017 at 15:17 Board Certified Radiologist. This report was verified electronically. Dru Cadet MD FACR on January 11, 2017 at 15:40 Board Certified Radiologist. This report was verified electronically.
[2017-01-11] MEDS: WARFARIN SOD 5 MG TAB PO SCH (17:29)
[2017-01-11 18:06] LABS: BACTERIA, URINE OCC /hpf; BLOOD, URINE TRACE (NEG); GLUCOSE,URINE NEG (NEG); HYALINE CAST, URINE 7 /lpf (RARE); KETONE, URINE NEG (NEG); MUCUS URINE FEW /lpf (OCC); NITRITE,URINE NEG (NEG); SQUAMOUS EPITHELIAL CELL URINE 1 /hpf (0-5); URINE COLOR YELLOW (YELLW/STRAW)
[2017-01-11 18:08] LABS: COMMENT (UR) CATH-CULTURE IND; CULTURE IF INDICATED CATH CULTURE IND
[2017-01-11] MEDS ORDERED: IOHEXOL 350 MG/ML 10 ML VIAL (for RAD DIAG) IV ONE (18:36)
--- NOTE | 2017-01-11 19:12 | RADRPT ---
EXAM DATE/TIME: 01/11/2017 18:34 [facility] COMPARISON: US ABDOMEN - COMPLETE, January 11, 2017, 14:24. INDICATIONS : Upper abdomen pain. IV CONTRAST: 70 cc Omnipaque 350 (iohexol) IV ORAL CONTRAST: Prescribed oral contrast ingested. RADIATION DOSE: 10.23 CTDIvol (mGy) MEDICAL HISTORY : Cardiovascular disease. Hypertension. Kidney mass SURGICAL HISTORY : None. ENCOUNTER: Initial ACUITY: 1 day PAIN SCALE: 5/10 LOCATION: upper abdomen TECHNIQUE: Volumetric scanning of the abdomen and pelvis was performed. Using automated exposure control and ad justment of the mA and/or kV according to patient size, radiation dose was kept as low as reasonably achievable to obtain optimal diagnostic quality images. FINDINGS: LOWER LUNGS: Small right pleural effusion. Right basilar consolidation. LIVER: Heterogeneous density without lesion. There is no dilation of the biliary tree. No calcified gallst ones. Large ascites. SPLEEN: Normal size without lesion. PANCREAS: Within normal limits. KIDNEYS: Normal in size and shape. There is no mass, stone or hydronephrosis on the left. There is an enhanci ng mass within the medial mid aspect of the right kidney measuring 5.8 x 4.5 x 4.8 cm.. ADRENAL GLANDS: Within normal limits. VASCULAR: There is no aortic aneurysm. BOWEL/MESENTERY: The stomach, small bowel, and colon demonstrate no acute abnormality. There is no free intraperitone al air or fluid. Normal appendix. ABDOMINAL WALL: Within normal limits. RETROPERITONEUM: There is no lymphadenopathy. BLADDER: Hammond catheter. REPRODUCTIVE: Within normal limits. INGUINAL: There is no lymphadenopathy or hernia. MUSCULOSKELETAL: Anasarca. CONCLUSION: 1. Large amount of abdominal ascites. 2. Solid mass right mid kidney concerning for renal cell carcinoma. 3. Small right pleural effusion. 4. Anasarca. Mariano Oakley MD on January 11, 2017 at 19:03 Board Certified Radiologist. This report was verified electronically.
[2017-01-11 20:57] VITALS: BP 124/76; PULSE 100; RESP 18; TEMP 97.9; O2SAT 94
[2017-01-12] VITALS (11 sets, daily range): BP systolic 101–125; BP diastolic 57–77; PULSE 67–103; RESP 16–18; TEMP 97.4–97.9; O2SAT 93–97
[2017-01-12] MEDS: cefTRIAXone INJ 1,000 MG in SODIUM CHLORIDE 0.9% INJ 100 ML IV SCH (05:22)
[2017-01-12] MEDS: ACETAMINOPHEN/HYDROcodone 325 MG/10 MG TAB PO PRN ×3 (05:27→20:26)
[2017-01-12] MEDS: POLYETHYLENE GLYCOL 17 GM PKG PO SCH ×2 (08:47→20:27)
[2017-01-12] MEDS: GABAPENTIN 300 MG CAP PO SCH ×3 (08:47→17:01)
[2017-01-12] MEDS: CARVEDILOL 3.125 MG TAB PO SCH ×2 (08:47→20:25)
[2017-01-12] MEDS: SODIUM CHLORIDE 0.9% FLUSH 10 ML FLUSH IV FLUSH SCH ×2 (08:48→20:25)
[2017-01-12] MEDS: FUROSEMIDE 20 MG/2 ML VIAL IV PUSH SCH ×2 (08:48→17:02)
[2017-01-12] MEDS: AZITHROMYCIN INJ 500 MG in SODIUM CHLOR 0.9% 250 ML INJ 250 ML IV SCH (08:48)
[2017-01-12 09:40] LABS: AUTOMATED NEUTROPHIL # 14.4 TH/MM3 (1.8-7.7); BASOPHIL # 0.2 TH/MM3 (0-0.2); EOSINOPHIL # 0.5 TH/MM3 (0-0.4); EOSINOPHIL % 2.9 % (0.0-4.0); HEMATOCRIT 39.5 % (39.0-51.0); HEMO FLAGS DIFF FINAL; LYMPHOCYTE # 2.2 TH/MM3 (1.0-4.8); MEAN CELL VOLUME 82.9 FL (80.0-100.0); MEAN CORPUSCULAR HEMOGLOBIN 25.7 PG (27.0-34.0); MEAN CORPUSCULAR HGB CONC 30.9 % (32.0-36.0); MONO % 6.9 % (0.0-8.0); NEUT % 77.2 % (16.0-70.0); PLATELET COUNT 326 TH/MM3 (150-450); RED BLOOD COUNT 4.76 MIL/MM3 (4.50-5.90); RED CELL DISTRIBUTION WIDTH 16.4 % (11.6-17.2); WHITE BLOOD COUNT 18.6 TH/MM3 (4.0-11.0)
[2017-01-12 10:24] LABS: ALKALINE PHOSPHATASE 167 U/L (45-117); ALT (GPT) 198 U/L (12-78); ANION GAP 6 MEQ/L (5-15); AST (GOT) 121 U/L (15-37); BICARBONATE 31.3 MEQ/L (21.0-32.0); BLOOD UREA NITROGEN 38 MG/DL (7-18); CHLORIDE 91 MEQ/L (98-107); GLOMERULAR FILTRATION RATE 68 ML/MIN (>89); POTASSIUM 5.4 MEQ/L (3.5-5.1); SODIUM (NA) 128 MEQ/L (136-145); TOTAL BILIRUBIN ADULT 0.5 MG/DL (0.2-1.0)
--- NOTE | 2017-01-12 11:49 | HHI.PR ---
Subjective Remarks The patient was sitting in a chair. He said he wanted the Hammond catheter removed because it was hurting him. He said that he knew he had a mass in his kidney but he never followed up with that because he is a procrastinator. He was willing to have further evaluation. He says his legs are less swollen. He said he was going to have a bowel movement. Discussed with nursing. Objective Vitals Vital Signs Date Time Temp Pulse Resp B/P Pulse Ox O2 Delivery O2 Flow Rate FiO2 01/12/17 08:10 Room Air 01/12/17 08:06 97.6 91 16 125/77 95 01/12/17 04:22 Room Air 01/12/17 04:00 97.9 93 18 110/62 96 01/12/17 02:30 97.4 67 18 112/74 97 01/12/17 00:03 103 18 107/75 93 01/11/17 20:57 97.9 100 18 124/76 94 01/11/17 14:30 19 I/O 01/11/17 01/11/17 01/11/17 01/12/17 01/12/17 01/12/17 07:00 15:00 23:00 07:00 15:00 23:00 Intake Total 2450 ml 480 ml Output Total 1950 ml 1000 ml Balance 500 ml -520 ml Intake Oral 2200 ml 480 ml IV Total 250 ml Output Urine Total 1950 ml 1000 ml # Bowel Movements 0 Result Diagram: 01/12/1717 01/12/1717 Imaging Last Impressions Upper Extremity Ultrasound 01/11/17 0000 Signed Impressions: Service Date/Time: Wednesday, January 11, 2017 09:38 - CONCLUSION: 1. Thrombosis of the cephalic vein. The remainder of the venous system of the right upper extremity is widely patent. Josh Cadet MD Abdomen/Pelvis CT 01/11/17 0000 Signed Impressions: Service Date/Time: Wednesday, January 11, 2017 18:34 - CONCLUSION: 1. Large amount of abdominal ascites. 2. Solid mass right mid kidney concerning for renal cell carcinoma. 3. Small right pleural effusion. 4. Anasarca. Mariano Oakley MD Abdomen Ultrasound 01/11/17 0000 Signed Impressions: Service Date/Time: Wednesday, January 11, 2017 14:15 - CONCLUSION: There is no significant ascites evident. Dru Cadet MD FACR Chest X-Ray 01/10/17 0000 Signed Impressions: Service Date/Time: Tuesday, January 10, 2017 03:18 - CONCLUSION: 1. Small to moderate right-sided pleural effusion. 2. Right lower lung infiltrate 3. Pulmonary venous congestion. August Elmore MD Objective Remarks GENERAL: Well-developed well-nourished. In no acute distress. SKIN: Warm and dry. RUE with palpable and tender superficial veins. HEENT: Normocephalic. Pupils equal and round. Mucous membranes pink and moist. JVD. CARDIOVASCULAR: Regular rate and rhythm. No murmur appreciated. RESPIRATORY: No accessory muscle use. Crackles at the bases. GASTROINTESTINAL: Abdomen soft, non-tender, mildly distended. Bowel sounds x4. MUSCULOSKELETAL: No obvious deformities. No clubbing or cyanosis. Trace edema on the right and 2+ edema on the left. NEUROLOGICAL: Awake and alert. No focal neurological deficits. Moves upper and lower extremities spontaneously. Normal speech. PSYCHIATRIC: Calm. Medications and IVs Current Medications Medications (Trade) Dose Ordered Sig/Vishal Route Start Time Stop Time Status Last Admin (Lasix Inj) 20 mg BID@09,18 IV PUSH 01/10/17 09:00 01/12/17 08:48 (NS Flush) 2 ml UNSCH PRN IV FLUSH 01/10/17 04:45 (NS Flush) 2 ml BID IV FLUSH 01/10/17 09:00 01/12/17 08:48 (Zofran Inj) 4 mg Q6H PRN IVP 01/10/17 04:45 01/11/17 04:15 (Dulcolax Supp) 10 mg DAILY PRN RECTAL 01/10/17 04:45 (Tylenol) 650 mg Q6H PRN PO 01/10/17 04:45 (Neurontin) 900 mg TID PO 01/10/17 09:00 01/12/17 08:47 Warfarin Sodium 5 mg 5 mg DAILY@1600 PO 01/10/17 16:00 01/11/17 17:29 Ceftriaxone Sodium 1000 mg/ Sodium Chloride 100 ml @ 200 mls/hr Q24H IV 01/10/17 06:00 01/12/17 05:22 (Zithromax Inj/ NS 250 ml Inj) 250 ml @ 250 mls/hr Q24H IV 01/10/17 08:00 01/12/17 08:48 ([place] 10-325 Mg) 1 tab Q6H PRN PO 01/11/17 07:43 01/12/17 05:27 (Coreg) 3.125 mg Q12HR PO 01/11/17 09:00 01/12/17 08:47 (Miralax) 17 gm BID PO 01/11/17 11:30 01/12/17 08:47 A/P Problem List: (1) CHF (congestive heart failure) ICD Code: I50.9 Status: Acute (2) COPD (chronic obstructive pulmonary disease) ICD Code: J44.9 Status: Chronic (3) PNA (pneumonia) ICD Code: J18.9 Status: Acute (4) TRAM (acute kidney injury) ICD Code: N17.9 Status: Resolved (5) Hyperkalemia ICD Code: E87.5 Status: Resolved Assessment and Plan 51-year-old male with a PMH of HTN, COPD, Fibromyalgia, GERD, CHF (Echo 12/28/16 w / EF 20%) who presented w/ complaints of bilateral lower extremity edema and increasing pain CHF Acute on chronic systolic CHF. Echo 12/28/16 w/ EF 20%. S/p eval by cardiology on recent admit 12/27-01/09/17 for CHF, pleural effusion s/p thoracentesis and PNA. Now w/ SOB and progressive LE edema. CXR w/ small to moderate right- sided pleural effusion and pulmonary venous congestion. - 20 mg IV Lasix BID. - Monitor I/Os. - Started carvedilol. - BRANDON hose for edema. - PT for DECKER. Renal mass Noted on US and CT. Concerning for renal cell carcinoma. Pt says he knew he had a renal mass but failed to follow up on it. - oncology consult requested. - consider urology vs. IR for biopsy if indicated. PNA CXR w/ RLL infiltrate. Afebrile, WBC 13. Productive cough. Recently hospitalized. - Continue IV Abx. Will switch to vancomycin and Zosyn to treat for HCAP. - oxygen and DuoNebs prn. TRAM Creatinine 1.62 on admission, previously 0.92 on 01/06/17. Improving with diuresis. - Monitor while diuresing. Left Ventricular Thrombus Seen on recent echocardiogram. - On Coumadin. INR therapeutic. Abdominal pain and distention Positive fluid wave. Elevated LFTs, new finding. Ultrasound and CT with ascites. Albumin 3. Hepatitis panel negative. Gastroenterology consult appreciated. - follow up with GI. - trend LFTs. - check ammonia level. - start lactulose. Thrombosis of the cephalic vein Noted on US. - continue Coumadin. - hematology consult pending. Hyperkalemia Unsure of etiology. - give Kayexalate and monitor. DVT Prophylaxis: On Coumadin as above. Discharge Planning Awaiting clinical improvement. Problem Qualifiers (1) CHF (congestive heart failure): Qualified Code: I50.23 - Acute on chronic systolic congestive heart failure (2) COPD (chronic obstructive pulmonary disease): Qualified Code: J43.9 - Pulmonary emphysema, unspecified emphysema type Dann Mcmanus DO January 12, 2017 11:49
[2017-01-12] MEDS ORDERED: Vancomycin Consult Pharmacy 1 EA OTHER SCH (12:15)
[2017-01-12] MEDS ORDERED: SODIUM POLYSTYRENE SULFONATE SUSP 15 GM/60 ML CUP PO ONE (12:15)
[2017-01-12] MEDS ORDERED: VANCOMYCIN INJ 1,250 MG in SODIUM CHLOR 0.9% 250 ML INJ 250 ML IV SCH (13:00)
[2017-01-12 13:22] LABS: INTERNATIONAL NORMALIZED RATIO 2.3 RATIO; PROTHROMBIN TIME - PATIENT 26.4 SEC (9.8-11.6)
[2017-01-12] MEDS: LACTULOSE SYRUP 20 GM/30 ML CUP PO SCH (13:40)
[2017-01-12] MEDS: PIPERACIL-TAZO 4.5 GM PREMIX 100 ML IV SCH ×2 (15:39→20:25)
[2017-01-12] MEDS: VANCOMYCIN INJ 1,500 MG in SODIUM CHLORID 0.9% 500 ML INJ 500 ML IV SCH (15:47)
--- NOTE | 2017-01-12 16:06 | HHI.GIFU ---
Subjective Remarks Resting in bed. No distress. Multiple bowel movements. Still with some right sided abdominal discomfort. Toleratin gdiet. Objective Vitals I&O Vital Signs Date Time Temp Pulse Resp B/P Pulse Ox O2 Delivery O2 Flow Rate FiO2 01/12/17 12:06 97.8 90 16 124/76 96 01/12/17 08:10 Room Air 01/12/17 08:06 97.6 91 16 125/77 95 01/12/17 07:47 94 21 01/12/17 04:22 Room Air 01/12/17 04:00 97.9 93 18 110/62 96 01/12/17 02:30 97.4 67 18 112/74 97 01/12/17 00:03 103 18 107/75 93 01/11/17 20:57 97.9 100 18 124/76 94 I/O 01/11/17 01/11/17 01/11/17 01/12/17 01/12/17 01/12/17 07:00 15:00 23:00 07:00 15:00 23:00 Intake Total 2450 ml 480 ml 255 ml Output Total 1950 ml 1000 ml Balance 500 ml -520 ml 255 ml Intake Oral 2200 ml 480 ml IV Total 250 ml 255 ml Output Urine Total 1950 ml 1000 ml # Bowel Movements 0 Laboratory Laboratory Tests Test 01/11/17 01/12/17 01/12/17 01/12/17 17:30 09:17 13:05 13:51 Urine Color YELLOW Urine Turbidity CLEAR Urine pH 6.0 Urine Specific [place] 1.015 Urine Protein 30 Urine Glucose (UA) NEG Urine Ketones NEG Urine Occult Blood TRACE Urine Nitrite NEG Urine Bilirubin NEG Urine Urobilinogen LESS THAN 2.0 Urine Leukocyte Esterase NEG Urine RBC 2 Urine WBC 1 Urine Squamous Epithelial 1 Cells Urine Bacteria OCC Urine Hyaline Casts 7 Urine Mucus FEW Microscopic Urinalysis Comment CATH-CULTURE IND White Blood Count 18.6 Red Blood Count 4.76 Hemoglobin 12.2 Hematocrit 39.5 Mean Corpuscular Volume 82.9 Mean Corpuscular Hemoglobin 25.7 Mean Corpuscular Hemoglobin 30.9 Concent Red Cell Distribution Width 16.4 Platelet Count 326 Mean Platelet Volume 9.4 Neutrophils (%) (Auto) 77.2 Lymphocytes (%) (Auto) 12.0 Monocytes (%) (Auto) 6.9 Eosinophils (%) (Auto) 2.9 Basophils (%) (Auto) 1.0 Neutrophils # (Auto) 14.4 Lymphocytes # (Auto) 2.2 Monocytes # (Auto) 1.3 Eosinophils # (Auto) 0.5 Basophils # (Auto) 0.2 CBC Comment DIFF FINAL Differential Comment Sodium Level 128 Potassium Level 5.4 Chloride Level 91 Carbon Dioxide Level 31.3 Anion Gap 6 Blood Urea Nitrogen 38 Creatinine 1.13 Estimat Glomerular Filtration 68 Rate Random Glucose 95 Calcium Level 8.4 Total Bilirubin 0.5 Aspartate Amino Transf 121 (AST/SGOT) Alanine Aminotransferase 198 (ALT/SGPT) Alkaline Phosphatase 167 Total Protein 7.7 Albumin 3.0 Prothrombin Time 26.4 Prothromb Time International 2.3 Ratio Ammonia 47 Date/Time Procedure Status Source Growth 01/11/17 17:30 Urine Culture - Preliminary Resulted Urine Catheterized Urine NO GROWTH IN 24 HOURS. Imaging Last Impressions Upper Extremity Ultrasound 01/11/17 0000 Signed Impressions: Service Date/Time: Wednesday, January 11, 2017 09:38 - CONCLUSION: 1. Thrombosis of the cephalic vein. The remainder of the venous system of the right upper extremity is widely patent. Josh Cadet MD Abdomen/Pelvis CT 01/11/17 0000 Signed Impressions: Service Date/Time: Wednesday, January 11, 2017 18:34 - CONCLUSION: 1. Large amount of abdominal ascites. 2. Solid mass right mid kidney concerning for renal cell carcinoma. 3. Small right pleural effusion. 4. Anasarca. Mariano Oakley MD Abdomen Ultrasound 01/11/17 0000 Signed Impressions: Service Date/Time: Wednesday, January 11, 2017 14:15 - CONCLUSION: There is no significant ascites evident. Dru Cadet MD FACR Chest X-Ray 01/10/17 0000 Signed Impressions: Service Date/Time: Tuesday, January 10, 2017 03:18 - CONCLUSION: 1. Small to moderate right-sided pleural effusion. 2. Right lower lung infiltrate 3. Pulmonary venous congestion. August Elmore MD Physical Exam HEENT: Normocephalic; atraumatic; no jaundice. CHEST: CTA, diminished CARDIAC: RRR. ABDOMEN: Soft, distended, mild right sided tenderness; no hepatosplenomegaly; bowel sounds are present in all four quadrants. Ascites EXTREMITIES: Mild ble edema. SKIN: Normal; no rash; no jaundice. SECOND GRADE TEACHER: No focal deficits; alert and oriented times three. Assessment and Plan Plan ASSESMENT: - Abdominal pain. Abdomen/Pelvis CT (01/11/17)------> 1. Large amount of abdominal ascites. 2. Solid mass right mid kidney concerning for renal cell carcinoma. 3. Small right pleural effusion. 4. Anasarca. Abdomen Ultrasound (01/11/17)-----> There is no significant ascites evident. Pt had multiple bowel movements. Still with right sided abdominal pain. Does have elevated LFTs, although bilirubin normal. T. Bili 0.5, AST 121, ALT 198, Alk Phosph 167. Not enough fluid for paracentesis. Pt on coumadin for left ventricular thrombus, thrombosis of the cephalic vein, so would not recommend taking off anticoagulation for endoscopic evaluation. Somewhat improved today after having bowel movements. On diuretics for ascites. - Abdominal distention, likely multifactorial secondary to both ascites and constipation. Improved. Still appears to have significant ascites on exam. Last US with no significant ascites evident. - Constipation. Miralax. Multiple BMs. - Leukocytosis. WBC 18.6. Afebrile. Vanco, Zosyn. - Elevated LFTs. T. Bili 0.5, AST 121, ALT 198, Alk Phosph 167. No biliary obstruction on CT or US. ? congestive hepatopathy. - Hyperammonemia. Ammonia 47. Lactulose - Anemia. Mild. 12.2/39.5. No active gi bleeding. - CHF, Lasix per primary - Right kidney mass, concerning for RCC. Oncology consulted - Left Ventricular Thrombus, Thrombosis of the cephalic vein. Hematology consulted. On coumadin. - COPD/PNA, TRAM with electrolyte abnormalities. per primary. PLAN: - Low sodium diet - Cont. PPI - Cont. Miralax - Cont. Zosyn - Diuretics per primary - Hematology/oncology consulted - Supportive care - Further recommendations to follow based on results of above - Pt seen and examined by Dr. Kelly and myself and this note is written on his behalf Lidia Saini January 12, 2017 16:06
[2017-01-12] MEDS: WARFARIN SOD 5 MG TAB PO SCH (17:01)
[2017-01-12 21:40] LABS: BICARBONATE 33.1 MEQ/L (21.0-32.0); POTASSIUM 4.7 MEQ/L (3.5-5.1)
[2017-01-13] VITALS (7 sets, daily range): BP systolic 74–106; BP diastolic 55–67; PULSE 78–90; RESP 16–22; TEMP 97–97.6; O2SAT 92–99
[2017-01-13] MEDS: PIPERACIL-TAZO 4.5 GM PREMIX 100 ML IV SCH ×4 (01:43→20:35)
[2017-01-13] MEDS: ACETAMINOPHEN/HYDROcodone 325 MG/10 MG TAB PO PRN ×3 (02:32→20:34)
[2017-01-13] MEDS: VANCOMYCIN INJ 1,500 MG in SODIUM CHLORID 0.9% 500 ML INJ 500 ML IV SCH ×2 (02:33→17:22)
[2017-01-13] MEDS: RESP: ALBUTEROL CONC 2.5 MG/0.5 ML NEB NEB PRN (02:56)
[2017-01-13 03:22] LABS: HEMATOCRIT 37.1 % (39.0-51.0); MEAN CELL VOLUME 82.8 FL (80.0-100.0); MEAN CORPUSCULAR HEMOGLOBIN 25.9 PG (27.0-34.0); MEAN CORPUSCULAR HGB CONC 31.2 % (32.0-36.0); PLATELET COUNT 316 TH/MM3 (150-450); RED BLOOD COUNT 4.48 MIL/MM3 (4.50-5.90); RED CELL DISTRIBUTION WIDTH 15.8 % (11.6-17.2); REVIEW FLAG FINAL; WHITE BLOOD COUNT 15.5 TH/MM3 (4.0-11.0)
[2017-01-13 03:36] LABS: APTT (PATIENT) 27.7 SEC (24.3-30.1); INTERNATIONAL NORMALIZED RATIO 2.4 RATIO
[2017-01-13 03:45] LABS: BICARBONATE 32.8 MEQ/L (21.0-32.0); MAGNESIUM 2.2 MG/DL (1.5-2.5); POTASSIUM 5.2 MEQ/L (3.5-5.1)
[2017-01-13] MEDS: HEPARIN-D5W INJ 250 ML IV SCH ×2 (03:45→19:18)
[2017-01-13 03:47] LABS: INDIRECT BILIRUBIN 0.3 MG/DL (0.0-0.8); TOTAL BILIRUBIN ADULT 0.5 MG/DL (0.2-1.0)
--- NOTE | 2017-01-13 06:07 | MB ---
cc: INNA OWUSU DATE OF 1965. DATE OF CONSULTATION January 12, 2017 REASON FOR CONSULTATION Patient with an abdominal mass. CHIEF COMPLAINT Abdominal distension. HISTORY OF PRESENT ILLNESS Mr. Tineo is a 51-year-old male with a history of hypertension, COPD, tobacco abuse, fibromyalgia, gastroesophageal reflux disease and CHF with findings of an ejection fraction of 20% on echocardiogram on December 28, 2016. He presented to the emergency department with bilateral lower extremity edema and pain. He has had previous admission for acute CHF. He has a history of pleural effusion status post thoracentesis and also a left ventricular thrombus and is on chronic anticoagulation with Coumadin. He presented to the emergency department with acute lower extremity edema. He also had abdominal swelling and dyspnea. On admission he had abdominal CT scan. A large amount of abdominal ascites was seen. There is also a solid mass in the right mid-kidney which is quite large at 5.8 x 4.5 x 4.8 cm. He had upper arm swelling and underwent Doppler ultrasound of the right extremity. There was thrombosis in the cephalic vein. REVIEW OF SYSTEMS A comprehensive 14-point review of systems was completed which is negative except as described in the HPI. PAST MEDICAL HISTORY 1. Hypertension. 2. Hyperlipidemia. 3. COPD. 4. Fibromyalgia. 5. Gastroesophageal reflux disease. 6. CHF. 7. Ventricular thrombus on chronic Coumadin. PAST SURGICAL HISTORY Left knee surgery. MEDICATIONS Medications are reviewed in the EMR. ALLERGIES IBUPROFEN. LEVAQUIN. ULTRAM. FAMILY HISTORY Reviewed and it is noncontributory to this admission. SOCIAL HISTORY He denies alcohol, tobacco abuse or illicit drug use. PHYSICAL EXAMINATION VITAL SIGNS: Blood pressure is 124/76, pulse is in the 80s to 90s, temperature is 97.9, O2 sats are 96% on room air. GENERAL: Acutely ill patient in no apparent distress. HEENT: Pupils are equal, round, reactive to light. EOMI. No oral thrush. No oral lesions. NECK: Supple. No JVD. No bruits. No lymphadenopathy. CHEST: Clear to auscultation bilaterally. CARDIAC: S1-S2 regular rate and rhythm. ABDOMEN: Distended. Diffuse tenderness. No rebound or guarding. Bowel sounds are decreased. EXTREMITIES: Without any edema, erythema or cyanosis. SKIN: Without any petechiae, lesion or bruises. NEURO: No focal deficits. PSYCHIATRIC: Mood and affect is appropriate. LABORATORY DATA WBCs 18.6, hemoglobin 12.2, platelet count 326. Serum chemistries show sodium of 130, potassium 4.7, CO2 33.1, BUN 38, creatinine 1.31, GFR is 57, calcium is 7.7, alk phos is 167, ammonia is 47, total protein is 7.7, albumin is 3. IMAGING STUDIES Reviewed in the EMR. ASSESSMENT AND PLAN This is a 51-year-old male who has multiple medical problems who presented to the emergency department with lower extremity edema, abdominal distension and had a CT of the abdomen and pelvis which shows kidney mass with abdominal ascites. 1. Right kidney mass measuring 5.8 x 4.5 x 4.8 cm. There is abdominal ascites. This is concerning for a malignancy such as renal cell carcinoma. The patient is currently on Coumadin. I would recommend switching him to heparin GTT. We will need to obtain a biopsy of the adrenal mass. Additionally, I will also recommend an ultrasound-guided abdominal paracentesis for therapeutic and diagnostic reasons. I will stop his Coumadin. We will start him on heparin GTT. Further recommendations will be based on the pathology results. 2. Leukocytosis. Infection versus reactive. The patient is currently on antibiotics for right lower lobe pneumonia. 3. Acute renal failure. 4. Left ventricular thrombus on Coumadin but we will switch to heparin GTT. 5. Thrombosis of cephalic vein. Apply warm compresses. Continue anticoagulation as stated above. Thank you for allowing me to participate in the care of this patient. I will continue to follow this patient along. MD KAVITA Mathews/DINA /1:52 AM /5:55 AM
[2017-01-13] MEDS: LACTULOSE SYRUP 20 GM/30 ML CUP PO SCH (08:21)
[2017-01-13] MEDS: GABAPENTIN 300 MG CAP PO SCH ×3 (08:21→17:27)
[2017-01-13] MEDS: SODIUM CHLORIDE 0.9% FLUSH 10 ML FLUSH IV FLUSH SCH ×2 (08:22→20:40)
[2017-01-13] MEDS: CARVEDILOL 3.125 MG TAB PO SCH ×2 (08:22→20:34)
[2017-01-13] MEDS: FUROSEMIDE 20 MG/2 ML VIAL IV PUSH SCH ×2 (08:22→17:27)
[2017-01-13] MEDS: POLYETHYLENE GLYCOL 17 GM PKG PO SCH ×2 (08:23→20:37)
[2017-01-13 10:33] LABS: APTT (PATIENT) 43.4 SEC (24.3-30.1)
[2017-01-13] MEDS ORDERED: PHYTONADIONE 5 MG TAB PO ONE (13:00)
[2017-01-13] MEDS ORDERED: SODIUM POLYSTYRENE SULFONATE SUSP 15 GM/60 ML CUP PO ONE (13:00)
[2017-01-13 14:23] LABS: AUTOMATED NEUTROPHIL # 9.7 TH/MM3 (1.8-7.7); BASOPHIL # 0.2 TH/MM3 (0-0.2); BASOPHIL % 1.3 % (0.0-2.0); EOSINOPHIL # 0.4 TH/MM3 (0-0.4); EOSINOPHIL % 2.5 % (0.0-4.0); HEMATOCRIT 36.3 % (39.0-51.0); HEMO FLAGS DIFF FINAL; LYMPH % 18.7 % (9.0-44.0); LYMPHOCYTE # 2.6 TH/MM3 (1.0-4.8); MEAN CELL VOLUME 83.6 FL (80.0-100.0); MEAN CORPUSCULAR HEMOGLOBIN 25.8 PG (27.0-34.0); MEAN CORPUSCULAR HGB CONC 30.8 % (32.0-36.0); MONO % 8.9 % (0.0-8.0); NEUT % 68.6 % (16.0-70.0); PLATELET COUNT 292 TH/MM3 (150-450); RED BLOOD COUNT 4.34 MIL/MM3 (4.50-5.90); WHITE BLOOD COUNT 14.2 TH/MM3 (4.0-11.0)
[2017-01-13 14:35] LABS: APTT (PATIENT) 61.9 SEC (24.3-30.1); INTERNATIONAL NORMALIZED RATIO 2.7 RATIO; PROTHROMBIN TIME - PATIENT 30.7 SEC (9.8-11.6)
--- NOTE | 2017-01-13 16:42 | HHI.PR ---
Subjective Remarks The patient was to have surgery today. His friend was at the bedside and their questions were answered. The pt endorsed abdominal distention. He said he was urinating well without the [place]. He was having a lot of bowel movements. Objective Vitals Vital Signs Date Time Temp Pulse Resp B/P Pulse Ox O2 Delivery O2 Flow Rate FiO2 01/13/17 12:00 97.2 88 18 96/55 97 01/13/17 08:00 97.5 86 16 105/66 98 01/13/17 04:00 97.0 78 18 104/67 92 01/13/17 00:00 97.3 85 18 94/62 92 01/12/17 20:38 Room Air 01/12/17 20:05 96 01/12/17 20:00 97.5 91 18 101/57 94 01/12/17 17:46 96 21 I/O 01/12/17 01/12/17 01/12/17 01/13/17 01/13/17 01/13/17 07:00 15:00 23:00 07:00 15:00 23:00 Intake Total 480 ml 675 ml 240 ml 420 ml 960 ml Output Total 1000 ml 460 ml 775 ml 100 ml Balance -520 ml 215 ml -535 ml 320 ml 960 ml Intake Oral 480 ml 420 ml 240 ml 420 ml 960 ml IV Total 255 ml Output Urine Total 1000 ml 460 ml 775 ml 100 ml # Voids 4 # Bowel Movements 0 0 0 0 3 Result Diagram: 01/13/17 1354 01/13/17 0309 Imaging Last Impressions Upper Extremity Ultrasound 01/11/17 0000 Signed Impressions: Service Date/Time: Wednesday, January 11, 2017 09:38 - CONCLUSION: 1. Thrombosis of the cephalic vein. The remainder of the venous system of the right upper extremity is widely patent. Josh Cadet MD Abdomen/Pelvis CT 01/11/17 0000 Signed Impressions: Service Date/Time: Wednesday, January 11, 2017 18:34 - CONCLUSION: 1. Large amount of abdominal ascites. 2. Solid mass right mid kidney concerning for renal cell carcinoma. 3. Small right pleural effusion. 4. Anasarca. Mariano Oakley MD Abdomen Ultrasound 01/11/17 0000 Signed Impressions: Service Date/Time: Wednesday, January 11, 2017 14:15 - CONCLUSION: There is no significant ascites evident. Dru Cadet MD FACR Chest X-Ray 01/10/17 0000 Signed Impressions: Service Date/Time: Tuesday, January 10, 2017 03:18 - CONCLUSION: 1. Small to moderate right-sided pleural effusion. 2. Right lower lung infiltrate 3. Pulmonary venous congestion. August Elmore MD Objective Remarks GENERAL: Well-developed well-nourished. In no acute distress. SKIN: Warm and dry. RUE with palpable and tender superficial veins. HEENT: Normocephalic. Pupils equal and round. Mucous membranes pink and moist. JVD. CARDIOVASCULAR: Regular rate and rhythm. No murmur appreciated. RESPIRATORY: No accessory muscle use. Crackles at the bases. GASTROINTESTINAL: Abdomen soft, non-tender, distended. Bowel sounds x4. MUSCULOSKELETAL: No obvious deformities. No clubbing or cyanosis. Trace edema on the right and 2+ edema on the left. NEUROLOGICAL: Awake and alert. No focal neurological deficits. Moves upper and lower extremities spontaneously. Normal speech. PSYCHIATRIC: Confused. Medications and IVs Current Medications Medications (Trade) Dose Ordered Sig/Vishal Route Start Time Stop Time Status Last Admin (Lasix Inj) 20 mg BID@,18 IV PUSH 01/10/17 09:00 01/13/17 08:22 (NS Flush) 2 ml UNSCH PRN IV FLUSH 01/10/17 04:45 (NS Flush) 2 ml BID IV FLUSH 01/10/17 09:00 01/13/17 08:22 (Zofran Inj) 4 mg Q6H PRN IVP 01/10/17 04:45 01/11/17 04:15 (Dulcolax Supp) 10 mg DAILY PRN RECTAL 01/10/17 04:45 (Tylenol) 650 mg Q6H PRN PO 01/10/17 04:45 (Neurontin) 900 mg TID PO 01/10/17 09:00 01/13/17 11:56 ([place] 10-325 Mg) 1 tab Q6H PRN PO 01/11/17 07:43 01/13/17 11:59 (Coreg) 3.125 mg Q12HR PO 01/11/17 09:00 01/13/17 08:22 Polyethylene Glycol 17 gm 17 gm BID PO 01/11/17 11:30 01/12/17 08:47 (Coumadin Consult Pharmacy) 0 ml @ 0 mls/hr UNSCH OTHER 01/12/17 12:00 Lactulose 30 ml 30 ml DAILY PO 01/12/17 12:15 01/13/17 08:21 Piperacillin Sod/ Tazobactam Sod 100 ml @ 200 mls/hr Q6H IV 01/12/17 14:00 01/13/17 08:22 Pharmacy Profile Note 0 ml @ 0 mls/hr UNSCH OTHER 01/12/17 12:15 (Vancomycin Inj/ NS 500 ml Inj) 515 ml @ 250 mls/hr Q12H IV 01/12/17 15:00 01/13/17 02:33 Miscellaneous Information SPECIFIC LAB TO BE DRAWN:VANCOMYCIN TROUGH DATE TO... ONCE ONCE .XX 01/14/17 02:45 01/14/17 02:46 (Heparin-D5W Inj) 250 ml @ 0 mls/hr TITRATE IV 01/13/17 02:00 01/13/17 03:45 A/P Problem List: (1) CHF (congestive heart failure) ICD Code: I50.9 Status: Acute (2) COPD (chronic obstructive pulmonary disease) ICD Code: J44.9 Status: Chronic (3) PNA (pneumonia) ICD Code: J18.9 Status: Acute (4) TRAM (acute kidney injury) ICD Code: N17.9 Status: Resolved (5) Hyperkalemia ICD Code: E87.5 Status: Resolved Assessment and Plan 51-year-old male with a PMH of HTN, COPD, Fibromyalgia, GERD, CHF (Echo 12/28/16 w / EF 20%) who presented w/ complaints of bilateral lower extremity edema and increasing pain CHF Acute on chronic systolic CHF. Echo 12/28/16 w/ EF 20%. S/p eval by cardiology on recent admit 12/27-01/09/17 for CHF, pleural effusion s/p thoracentesis and PNA. Now w/ SOB and progressive LE edema. CXR w/ small to moderate right- sided pleural effusion and pulmonary venous congestion. - 20 mg IV Lasix BID. - Monitor I/Os. - Started carvedilol. - BRANDON hose for edema. - PT for DECKER. Renal mass Noted on US and CT. Concerning for renal cell carcinoma. Pt says he knew he had a renal mass but failed to follow up on it. Oncology consult appreciated. - IR consult for renal biopsy. - vitamin K given. - Coumadin changed to heparin gtt. PNA CXR w/ RLL infiltrate. Afebrile, WBC 13. Productive cough. Recently hospitalized. - Continue IV Abx. Will switch to vancomycin and Zosyn to treat for HCAP. - oxygen and DuoNebs prn. TRAM Creatinine 1.62 on admission, previously 0.92 on 01/06/17. Improving with diuresis. - Monitor while diuresing. Left Ventricular Thrombus Seen on recent echocardiogram. - on heparin gtt. Abdominal pain and distention Positive fluid wave. Elevated LFTs, new finding. Ultrasound and CT with ascites. Albumin 3. Hepatitis panel negative. Gastroenterology consult appreciated. - follow up with GI. - trend LFTs. - ammonia level elevated. Started lactulose. - paracentesis per GI. Thrombosis of the cephalic vein Noted on US. - continue heparin gtt. - hematology following. Hyperkalemia Unsure of etiology. - give Kayexalate and monitor. Scrotal edema Pt is urinating well. - urology consult if no improvement with diuresis. DVT Prophylaxis: On Coumadin as above. Discharge Planning Awaiting clinical improvement. Problem Qualifiers (1) CHF (congestive heart failure): Qualified Code: I50.23 - Acute on chronic systolic congestive heart failure (2) COPD (chronic obstructive pulmonary disease): Qualified Code: J43.9 - Pulmonary emphysema, unspecified emphysema type Dann Mcmanus DO January 13, 2017 16:42
--- NOTE | 2017-01-13 17:07 | HHI.GIFU ---
Subjective Remarks Resting in bed. No distress. Tolerating diet. Mild Right sided abdominal tenderness, pt states a dull ache, mild. + BM. Objective Vitals I&O Vital Signs Date Time Temp Pulse Resp B/P Pulse Ox O2 Delivery O2 Flow Rate FiO2 01/13/17 12:00 97.2 88 18 96/55 97 01/13/17 08:00 97.5 86 16 105/66 98 01/13/17 04:00 97.0 78 18 104/67 92 01/13/17 00:00 97.3 85 18 94/62 92 01/12/17 20:38 Room Air 01/12/17 20:05 96 01/12/17 20:00 97.5 91 18 101/57 94 01/12/17 17:46 96 21 I/O 01/12/17 01/12/17 01/12/17 01/13/17 01/13/17 01/13/17 07:00 15:00 23:00 07:00 15:00 23:00 Intake Total 480 ml 675 ml 240 ml 420 ml 960 ml Output Total 1000 ml 460 ml 775 ml 100 ml Balance -520 ml 215 ml -535 ml 320 ml 960 ml Intake Oral 480 ml 420 ml 240 ml 420 ml 960 ml IV Total 255 ml Output Urine Total 1000 ml 460 ml 775 ml 100 ml # Voids 4 # Bowel Movements 0 0 0 0 3 Laboratory Laboratory Tests Test 01/12/17 01/13/17 01/13/17 01/13/17 20:27 03:09 04:50 09:55 Sodium Level 130 129 Potassium Level 4.7 5.2 Chloride Level 90 91 Carbon Dioxide Level 33.1 32.8 Anion Gap 7 5 Blood Urea Nitrogen 38 42 Creatinine 1.31 1.37 Estimat Glomerular Filtration 57 54 Rate Random Glucose 173 104 Calcium Level 7.7 8.0 White Blood Count 15.5 Red Blood Count 4.48 Hemoglobin 11.6 Hematocrit 37.1 Mean Corpuscular Volume 82.8 Mean Corpuscular Hemoglobin 25.9 Mean Corpuscular Hemoglobin 31.2 Concent Red Cell Distribution Width 15.8 Platelet Count 316 Mean Platelet Volume 9.6 Prothrombin Time 27.0 Prothromb Time International 2.4 Ratio Activated Partial 27.7 43.4 Thromboplast Time Magnesium Level 2.2 Total Bilirubin 0.5 Direct Bilirubin 0.2 Indirect Bilirubin 0.3 Aspartate Amino Transf 124 (AST/SGOT) Alanine Aminotransferase 194 (ALT/SGPT) Alkaline Phosphatase 171 Lactate Dehydrogenase 337 Total Protein 6.8 Albumin 2.7 Carcinoembryonic Antigen 3.5 Test 01/13/17 01/13/17 13:54 14:09 White Blood Count 14.2 Red Blood Count 4.34 Hemoglobin 11.2 Hematocrit 36.3 Mean Corpuscular Volume 83.6 Mean Corpuscular Hemoglobin 25.8 Mean Corpuscular Hemoglobin 30.8 Concent Red Cell Distribution Width 16.0 Platelet Count 292 Mean Platelet Volume 9.4 Neutrophils (%) (Auto) 68.6 Lymphocytes (%) (Auto) 18.7 Monocytes (%) (Auto) 8.9 Eosinophils (%) (Auto) 2.5 Basophils (%) (Auto) 1.3 Neutrophils # (Auto) 9.7 Lymphocytes # (Auto) 2.6 Monocytes # (Auto) 1.3 Eosinophils # (Auto) 0.4 Basophils # (Auto) 0.2 CBC Comment DIFF FINAL Differential Comment Prothrombin Time 30.7 Prothromb Time International 2.7 Ratio Activated Partial 61.9 Thromboplast Time Date/Time Procedure Status Source Growth 01/13/17 08:35 Stool Occult Blood (KEERTHI) - Final Complete Stool Stool HEMOCCULT NEGATIVE 01/11/17 17:30 Urine Culture - Final Complete Urine Catheterized Urine NO GROWTH IN 48 HOURS. Imaging Last Impressions Upper Extremity Ultrasound 01/11/17 0000 Signed Impressions: Service Date/Time: Wednesday, January 11, 2017 09:38 - CONCLUSION: 1. Thrombosis of the cephalic vein. The remainder of the venous system of the right upper extremity is widely patent. Josh Cadet MD Abdomen/Pelvis CT 01/11/17 0000 Signed Impressions: Service Date/Time: Wednesday, January 11, 2017 18:34 - CONCLUSION: 1. Large amount of abdominal ascites. 2. Solid mass right mid kidney concerning for renal cell carcinoma. 3. Small right pleural effusion. 4. Anasarca. Mariano Oakley MD Abdomen Ultrasound 01/11/17 0000 Signed Impressions: Service Date/Time: Wednesday, January 11, 2017 14:15 - CONCLUSION: There is no significant ascites evident. Dru Cadet MD FACR Chest X-Ray 01/10/17 0000 Signed Impressions: Service Date/Time: Tuesday, January 10, 2017 03:18 - CONCLUSION: 1. Small to moderate right-sided pleural effusion. 2. Right lower lung infiltrate 3. Pulmonary venous congestion. August Elmore MD Physical Exam HEENT: Normocephalic; atraumatic; no jaundice. CHEST: CTA, diminished CARDIAC: RRR. ABDOMEN: Soft, distended, mild right sided tenderness; no hepatosplenomegaly; bowel sounds are present in all four quadrants. Ascites EXTREMITIES: Mild ble edema. SKIN: Normal; no rash; no jaundice. MEAT PASSER: No focal deficits; alert and oriented times three. Assessment and Plan Plan ASSESMENT: - Abdominal pain. Abdomen/Pelvis CT (01/11/17)------> 1. Large amount of abdominal ascites. 2. Solid mass right mid kidney concerning for renal cell carcinoma. 3. Small right pleural effusion. 4. Anasarca. Abdomen Ultrasound (01/11/17)-----> There is no significant ascites evident. Pt had multiple bowel movements. Still with right sided abdominal pain. Does have elevated LFTs, although bilirubin normal. T. Bili 0.3, AST 124, ALT 194, Alk Phosph 171. Not enough fluid for paracentesis. Pt on coumadin for left ventricular thrombus, thrombosis of the cephalic vein, so would not recommend taking off anticoagulation for endoscopic evaluation. Abdominal pain improved. On diuretics for ascites. - Abdominal distention, likely multifactorial secondary to both ascites and constipation. Improved. Still appears to have significant ascites on exam. Last US with no significant ascites evident. - Constipation. Miralax. Multiple BMs. - Leukocytosis. WBC 18.6. Afebrile. Vanco, Zosyn. - Elevated LFTs. T. Bili 0.3, AST 124, ALT 194, Alk Phosph 171. No biliary obstruction on CT or US. ? congestive hepatopathy. Will get liver workup to r/o underlying liver disease. - Hyperammonemia. Ammonia 47. Lactulose - Anemia. Mild. 12.2/39.5. No active gi bleeding. - CHF, Lasix per primary - Right kidney mass, concerning for RCC. Oncology consulted - Left Ventricular Thrombus, Thrombosis of the cephalic vein. Hematology consulted. On coumadin. - COPD/PNA, TRAM with electrolyte abnormalities. per primary. PLAN: - Low sodium diet - Cont. PPI - Cont. Miralax - Cont. Zosyn - Diuretics per primary - AFP level - GLORIA, ASMA, AMA - Ceruloplasmin, Alpha 1 antitrypsin - Ferritin, Iron saturation - Hematology/oncology following - Supportive care - Further recommendations to follow based on results of above - Pt seen and examined by Dr. Kelly and myself and this note is written on his behalf Lidia Saini January 13, 2017 17:07
[2017-01-13 17:49] LABS: BICARBONATE 23.9 MEQ/L (21.0-32.0); POTASSIUM 4.9 MEQ/L (3.5-5.1)
[2017-01-13 17:54] LABS: APTT (PATIENT) 71.8 SEC (24.3-30.1)
--- NOTE | 2017-01-13 19:01 | PD.ONC.PN ---
Subjective Subjective Remarks Afebrile. Abdominal fullness persists. Eating OK. No SOB. Objective Data Date Time Temp Pulse Resp B/P Pulse Ox O2 Delivery O2 Flow Rate FiO2 01/13/17 18:09 98 21 01/13/17 16:00 97.3 90 18 106/64 98 01/13/17 12:00 97.2 88 18 96/55 97 01/13/17 08:00 97.5 86 16 105/66 98 01/13/17 04:00 97.0 78 18 104/67 92 01/13/17 00:00 97.3 85 18 94/62 92 01/12/17 20:38 Room Air 01/12/17 20:05 96 01/12/17 20:00 97.5 91 18 101/57 94 01/13/17 01/13/17 01/13/17 07:00 15:00 23:00 Intake Total 420 ml 960 ml Output Total 100 ml Balance 320 ml 960 ml Result Diagram: 01/13/17 1354 01/13/17 1717 Laboratory Results Laboratory Tests Test 01/12/17 01/13/17 01/13/17 01/13/17 20:27 03:09 04:50 09:55 Sodium Level 130 MEQ/L 129 MEQ/L Potassium Level 4.7 MEQ/L 5.2 MEQ/L Chloride Level 90 MEQ/L 91 MEQ/L Carbon Dioxide Level 33.1 MEQ/L 32.8 MEQ/L Anion Gap 7 MEQ/L 5 MEQ/L Blood Urea Nitrogen 38 MG/DL 42 MG/DL Creatinine 1.31 MG/DL 1.37 MG/DL Estimat Glomerular Filtration 57 ML/MIN 54 ML/MIN Rate Random Glucose 173 MG/DL 104 MG/DL Calcium Level 7.7 MG/DL 8.0 MG/DL White Blood Count 15.5 TH/MM3 Red Blood Count 4.48 MIL/MM3 Hemoglobin 11.6 GM/DL Hematocrit 37.1 % Mean Corpuscular Volume 82.8 FL Mean Corpuscular Hemoglobin 25.9 PG Mean Corpuscular Hemoglobin 31.2 % Concent Red Cell Distribution Width 15.8 % Platelet Count 316 TH/MM3 Mean Platelet Volume 9.6 FL Prothrombin Time 27.0 SEC Prothromb Time International 2.4 RATIO Ratio Activated Partial 27.7 SEC 43.4 SEC Thromboplast Time Magnesium Level 2.2 MG/DL Total Bilirubin 0.5 MG/DL Direct Bilirubin 0.2 MG/DL Indirect Bilirubin 0.3 MG/DL Aspartate Amino Transf 124 U/L (AST/SGOT) Alanine Aminotransferase 194 U/L (ALT/SGPT) Alkaline Phosphatase 171 U/L Lactate Dehydrogenase 337 U/L Total Protein 6.8 GM/DL Albumin 2.7 GM/DL Carcinoembryonic Antigen 3.5 NG/ML Test 01/13/17 01/13/17 01/13/17 01/13/17 13:54 14:09 17:04 17:17 White Blood Count 14.2 TH/MM3 Red Blood Count 4.34 MIL/MM3 Hemoglobin 11.2 GM/DL Hematocrit 36.3 % Mean Corpuscular Volume 83.6 FL Mean Corpuscular Hemoglobin 25.8 PG Mean Corpuscular Hemoglobin 30.8 % Concent Red Cell Distribution Width 16.0 % Platelet Count 292 TH/MM3 Mean Platelet Volume 9.4 FL Neutrophils (%) (Auto) 68.6 % Lymphocytes (%) (Auto) 18.7 % Monocytes (%) (Auto) 8.9 % Eosinophils (%) (Auto) 2.5 % Basophils (%) (Auto) 1.3 % Neutrophils # (Auto) 9.7 TH/MM3 Lymphocytes # (Auto) 2.6 TH/MM3 Monocytes # (Auto) 1.3 TH/MM3 Eosinophils # (Auto) 0.4 TH/MM3 Basophils # (Auto) 0.2 TH/MM3 CBC Comment DIFF FINAL Differential Comment Prothrombin Time 30.7 SEC Prothromb Time International 2.7 RATIO Ratio Activated Partial 61.9 SEC 71.8 SEC Thromboplast Time Sodium Level 123 MEQ/L Potassium Level 4.9 MEQ/L Chloride Level 91 MEQ/L Carbon Dioxide Level 23.9 MEQ/L Anion Gap 8 MEQ/L Blood Urea Nitrogen 41 MG/DL Creatinine 1.20 MG/DL Estimat Glomerular Filtration 63 ML/MIN Rate Random Glucose 131 MG/DL Calcium Level 7.8 MG/DL Culture Results Microbiology Date/Time Procedure Status Source Growth 01/11/17 17:30 Urine Culture - Final Complete Urine Catheterized Urine NO GROWTH IN 48 HOURS. 01/13/17 08:35 Stool Occult Blood (KEERTHI) - Final Complete Stool Stool HEMOCCULT NEGATIVE Administered Medications Medications (Trade) Dose Ordered Sig/Vishal Route PRN Reason Start Time Stop Time Status Last Admin Dose Admin Furosemide (Lasix Inj) 20 mg BID@09,18 IV PUSH 01/10/17 09:00 01/13/17 17:27 Sodium Chloride (NS Flush) 2 ml BID IV FLUSH 01/10/17 09:00 01/13/17 08:22 Ondansetron HCl (Zofran Inj) 4 mg Q6H PRN IVP NAUSEA OR VOMITING 01/10/17 04:45 01/11/17 04:15 Gabapentin (Neurontin) 900 mg TID PO 01/10/17 09:00 01/13/17 17:27 Acetaminophen/ Hydrocodone Bitart ([place] 10-325 Mg) 1 tab Q6H PRN PO PAIN 3-10 01/11/17 07:43 01/13/17 11:59 Carvedilol (Coreg) 3.125 mg Q12HR PO 01/11/17 09:00 01/13/17 08:22 Polyethylene Glycol (Miralax) 17 gm BID PO 01/11/17 11:30 01/12/17 08:47 Lactulose 30 ml 30 ml DAILY PO 01/12/17 12:15 01/13/17 08:21 Piperacillin Sod/ Tazobactam Sod 100 ml @ 200 mls/hr Q6H IV 01/12/17 14:00 01/13/17 17:22 Vancomycin HCl 1500 mg/Sodium Chloride 515 ml @ 250 mls/hr Q12H IV 01/12/17 15:00 01/13/17 17:22 Heparin Sodium/ Dextrose (Heparin-D5W Inj) 250 ml @ 0 mls/hr TITRATE IV 01/13/17 02:00 01/13/17 03:45 Objective Remarks GENERAL: Middle aged male sitting up on side of bed eating dinner in no distress. SKIN: Warm and dry. HEAD: Normocephalic. EYES: No injection or drainage. NECK: Supple, trachea midline. CARDIOVASCULAR: +S1/S2. RESPIRATORY: Lungs clear posteriorly. Breathing unlabored. GASTROINTESTINAL: Abdomen distended, somewhat firm. EXTREMITIES: No cyanosis NEUROLOGICAL: No obvious focal deficit. Awake, alert, and oriented x3. Assessment/Plan Problem List: (1) Right kidney mass Status: Acute Plan: -- Solid mass R mid kidney suspicious for renal cell carcinoma -- Will need biopsy -- On heparin gtt, last dose coumadin on 01/12. -- Will need to completely reverse INR. -- CEA normal Assessment 51 y/o male with history of CHF presents to the ER with persistent LE edema. Oncology consulted for renal mass suspicious for renal cell carcinoma. Plan 1. Pt will need paracentesis as well as US guided biopsy of renal mass. 2. Discussed with Oseas Cadet, will get biopsy when INR completely reversed. 3. Will give another dose of Vit K SQ tonight and recheck INR at 2200. 4. PT/INR in am. NPO after midnight for biopsy, paracentesis tomorrow. Attending Statement 51-year-old male who has multiple medical problems who presented to the emergency department with lower extremity edema, abdominal distension and had a CT of the abdomen and pelvis which shows kidney mass with abdominal ascites. 1. Right kidney mass measuring 5.8 x 4.5 x 4.8 cm. There is abdominal ascites. This is concerning for a malignancy such as renal cell carcinoma. Further recommendations will be based on the pathology results. - coumadin stopped. - heparin gtt - additional Vitamin K given. INR still elevated - Vitamin K sq X1 given earlier. INR 2.6. Give Vitamin K 2.5 mg PO - recheck INR in AM - Abdominal US and Renal biopsy in AM 2. Leukocytosis. Infection versus reactive. The patient is currently on antibiotics for right lower lobe pneumonia. 3. Acute renal failure. 4. Left ventricular thrombus on Coumadin - on heparin GTT. 5. Thrombosis of cephalic vein. Apply warm compresses. Continue anticoagulation as stated above. The exam, history, and the medical decision-making described in the above note were completed with the assistance of the mid-level provider. I reviewed and agree with the findings presented. I attest that I had a [id number] encounter with the patient on the same day, and personally performed and documented my assessment and findings in the medical record Nadege Aguilar January 13, 2017 19:01 Giancarlo Huang MD January 14, 2017 00:22
[2017-01-13] MEDS ORDERED: PHYTONADIONE 10 MG/ML VIAL SQ ONE (20:00)
[2017-01-13 23:41] LABS: APTT (PATIENT) 79.1 SEC (24.3-30.1); INTERNATIONAL NORMALIZED RATIO 2.6 RATIO; PROTHROMBIN TIME - PATIENT 29.8 SEC (9.8-11.6)
[2017-01-14] VITALS (9 sets, daily range): BP systolic 97–158; BP diastolic 54–78; PULSE 80–95; RESP 16–20; TEMP 97.1–98.4; O2SAT 95–100
[2017-01-14 00:05] LABS: ANION GAP 6 MEQ/L (5-15); BICARBONATE 31.8 MEQ/L (21.0-32.0); BLOOD UREA NITROGEN 38 MG/DL (7-18); CHLORIDE 93 MEQ/L (98-107); FERRITIN 85 NG/ML (26-388); GLOMERULAR FILTRATION RATE 67 ML/MIN (>89); POTASSIUM 3.7 MEQ/L (3.5-5.1); SODIUM (NA) 131 MEQ/L (136-145); TRANSFERRIN IRON PROFILE 290 MG/DL (200-360)
[2017-01-14 00:27] LABS: CALCIUM-PROTEIN CORRECTED 7.7 MG/DL (8.5-10.1)
[2017-01-14] MEDS ORDERED: PHYTONADIONE 5 MG TAB PO ONE ×2 (00:30→23:30)
[2017-01-14] MEDS: PIPERACIL-TAZO 4.5 GM PREMIX 100 ML IV SCH ×4 (01:49→20:32)
[2017-01-14] MEDS: VANCOMYCIN INJ 1,500 MG in SODIUM CHLORID 0.9% 500 ML INJ 500 ML IV SCH ×2 (02:44→20:40)
[2017-01-14] MEDS ORDERED: PHARMACY ORDERED LAB ONE (02:45)
[2017-01-14 07:59] LABS: MEAN CELL VOLUME 82.6 FL (80.0-100.0); MEAN CORPUSCULAR HEMOGLOBIN 25.7 PG (27.0-34.0); MEAN CORPUSCULAR HGB CONC 31.1 % (32.0-36.0); PLATELET COUNT 271 TH/MM3 (150-450); RED BLOOD COUNT 4.36 MIL/MM3 (4.50-5.90); RED CELL DISTRIBUTION WIDTH 15.7 % (11.6-17.2); REVIEW FLAG FINAL; WHITE BLOOD COUNT 13.6 TH/MM3 (4.0-11.0)
[2017-01-14 08:10] LABS: APTT (PATIENT) 54.1 SEC (24.3-30.1); INTERNATIONAL NORMALIZED RATIO 1.6 RATIO; PROTHROMBIN TIME - PATIENT 18.2 SEC (9.8-11.6)
[2017-01-14 08:30] LABS: BICARBONATE 32.6 MEQ/L (21.0-32.0); INDIRECT BILIRUBIN 0.3 MG/DL (0.0-0.8); MAGNESIUM 2.4 MG/DL (1.5-2.5); POTASSIUM 3.4 MEQ/L (3.5-5.1); TOTAL BILIRUBIN ADULT 0.5 MG/DL (0.2-1.0)
[2017-01-14] MEDS: POLYETHYLENE GLYCOL 17 GM PKG PO SCH ×2 (09:00→20:39)
[2017-01-14] MEDS: LACTULOSE SYRUP 20 GM/30 ML CUP PO SCH (09:00)
[2017-01-14] MEDS: FUROSEMIDE 20 MG/2 ML VIAL IV PUSH SCH ×2 (10:10→17:02)
[2017-01-14] MEDS: SODIUM CHLORIDE 0.9% FLUSH 10 ML FLUSH IV FLUSH SCH ×2 (10:11→20:33)
[2017-01-14] MEDS: CARVEDILOL 3.125 MG TAB PO SCH ×2 (10:11→20:31)
[2017-01-14] MEDS: ACETAMINOPHEN/HYDROcodone 325 MG/10 MG TAB PO PRN ×3 (10:12→22:52)
[2017-01-14] MEDS: GABAPENTIN 300 MG CAP PO SCH ×3 (10:12→17:03)
--- NOTE | 2017-01-14 10:47 | PD.ONC.PN ---
Subjective Subjective Remarks Afebrile overnight. Patient with sister at bedside. He wants to know if he is going to have his biopsy today. Objective Data Date Time Temp Pulse Resp B/P Pulse Ox O2 Delivery O2 Flow Rate FiO2 01/14/17 04:00 Room Air 01/14/17 04:00 97.6 81 20 158/75 98 01/14/17 00:00 Room Air 01/14/17 00:00 97.1 83 20 110/75 98 01/13/17 20:00 Room Air 01/13/17 20:00 97.6 89 22 74/ 99 01/13/17 20:00 87 01/13/17 18:09 98 21 01/13/17 16:00 97.3 90 18 106/64 98 01/13/17 12:00 97.2 88 18 96/55 97 01/14/17 01/14/17 01/14/17 07:00 15:00 23:00 Intake Total 183 ml Balance 183 ml Result Diagram: 01/14/17 0721 01/14/17 0721 Laboratory Results Laboratory Tests Test 01/13/17 01/13/17 01/13/17 01/13/17 13:54 14:09 17:04 17:17 White Blood Count 14.2 TH/MM3 Red Blood Count 4.34 MIL/MM3 Hemoglobin 11.2 GM/DL Hematocrit 36.3 % Mean Corpuscular Volume 83.6 FL Mean Corpuscular Hemoglobin 25.8 PG Mean Corpuscular Hemoglobin 30.8 % Concent Red Cell Distribution Width 16.0 % Platelet Count 292 TH/MM3 Mean Platelet Volume 9.4 FL Neutrophils (%) (Auto) 68.6 % Lymphocytes (%) (Auto) 18.7 % Monocytes (%) (Auto) 8.9 % Eosinophils (%) (Auto) 2.5 % Basophils (%) (Auto) 1.3 % Neutrophils # (Auto) 9.7 TH/MM3 Lymphocytes # (Auto) 2.6 TH/MM3 Monocytes # (Auto) 1.3 TH/MM3 Eosinophils # (Auto) 0.4 TH/MM3 Basophils # (Auto) 0.2 TH/MM3 CBC Comment DIFF FINAL Differential Comment Prothrombin Time 30.7 SEC Prothromb Time International 2.7 RATIO Ratio Activated Partial 61.9 SEC 71.8 SEC Thromboplast Time Sodium Level 123 MEQ/L Potassium Level 4.9 MEQ/L Chloride Level 91 MEQ/L Carbon Dioxide Level 23.9 MEQ/L Anion Gap 8 MEQ/L Blood Urea Nitrogen 41 MG/DL Creatinine 1.20 MG/DL Estimat Glomerular Filtration 63 ML/MIN Rate Random Glucose 131 MG/DL Calcium Level 7.8 MG/DL Test 01/13/17 01/14/17 01/14/17 23:04 02:45 07:21 Prothrombin Time 29.8 SEC 18.2 SEC Prothromb Time International 2.6 RATIO 1.6 RATIO Ratio Activated Partial 79.1 SEC 54.1 SEC Thromboplast Time Sodium Level 131 MEQ/L 133 MEQ/L Potassium Level 3.7 MEQ/L 3.4 MEQ/L Chloride Level 93 MEQ/L 91 MEQ/L Carbon Dioxide Level 31.8 MEQ/L 32.6 MEQ/L Anion Gap 6 MEQ/L 9 MEQ/L Blood Urea Nitrogen 38 MG/DL 36 MG/DL Creatinine 1.15 MG/DL 1.12 MG/DL Estimat Glomerular Filtration 67 ML/MIN 69 ML/MIN Rate Random Glucose 132 MG/DL 103 MG/DL Calcium Level 7.2 MG/DL 8.1 MG/DL Protein Corrected Calcium 7.7 MG/DL Iron Level 20 MCG/DL Total Iron Binding Capacity 406 MCG/DL Percent Iron Saturation 4.9 % Ferritin 85 NG/ML Total Protein 6.1 GM/DL 6.8 GM/DL Tumor Marker Alpha Fetoprotein 5.6 NG/ML Vancomycin Level Trough 23.6 MCG/ML White Blood Count 13.6 TH/MM3 Red Blood Count 4.36 MIL/MM3 Hemoglobin 11.2 GM/DL Hematocrit 36.0 % Mean Corpuscular Volume 82.6 FL Mean Corpuscular Hemoglobin 25.7 PG Mean Corpuscular Hemoglobin 31.1 % Concent Red Cell Distribution Width 15.7 % Platelet Count 271 TH/MM3 Mean Platelet Volume 9.8 FL Magnesium Level 2.4 MG/DL Total Bilirubin 0.5 MG/DL Direct Bilirubin 0.2 MG/DL Indirect Bilirubin 0.3 MG/DL Aspartate Amino Transf 83 U/L (AST/SGOT) Alanine Aminotransferase 161 U/L (ALT/SGPT) Alkaline Phosphatase 149 U/L Albumin 2.7 GM/DL Culture Results Microbiology Date/Time Procedure Status Source Growth 01/11/17 17:30 Urine Culture - Final Complete Urine Catheterized Urine NO GROWTH IN 48 HOURS. 01/13/17 08:35 Stool Occult Blood (KEERTHI) - Final Complete Stool Stool HEMOCCULT NEGATIVE Administered Medications Medications (Trade) Dose Ordered Sig/Vishal Route PRN Reason Start Time Stop Time Status Last Admin Dose Admin Furosemide (Lasix Inj) 20 mg BID@09,18 IV PUSH 01/10/17 09:00 01/14/17 10:10 Sodium Chloride (NS Flush) 2 ml BID IV FLUSH 01/10/17 09:00 01/14/17 10:11 Ondansetron HCl (Zofran Inj) 4 mg Q6H PRN IVP NAUSEA OR VOMITING 01/10/17 04:45 01/11/17 04:15 Gabapentin (Neurontin) 900 mg TID PO 01/10/17 09:00 01/14/17 10:12 Acetaminophen/ Hydrocodone Bitart ([place] 10-325 Mg) 1 tab Q6H PRN PO PAIN 3-10 01/11/17 07:43 01/14/17 10:12 Carvedilol (Coreg) 3.125 mg Q12HR PO 01/11/17 09:00 01/14/17 10:11 Polyethylene Glycol (Miralax) 17 gm BID PO 01/11/17 11:30 01/12/17 08:47 Lactulose 30 ml 30 ml DAILY PO 01/12/17 12:15 01/13/17 08:21 Piperacillin Sod/ Tazobactam Sod 100 ml @ 200 mls/hr Q6H IV 01/12/17 14:00 01/14/17 10:09 Heparin Sodium/ Dextrose (Heparin-D5W Inj) 250 ml @ 0 mls/hr TITRATE IV 01/13/17 02:00 Hold 01/13/17 19:18 Objective Remarks GENERAL: Middle aged male, sitting up in chair in room in [facility]. SKIN: Warm and dry. HEAD: Normocephalic. EYES: No injection or drainage. NECK: Supple, trachea midline. CARDIOVASCULAR: Regular rate and rhythm RESPIRATORY: Breath sounds equal bilaterally. No accessory muscle use. GASTROINTESTINAL: Abdomen distended with ascites. EXTREMITIES: No cyanosis NEUROLOGICAL: awake. normal speech. able to move extremities. Assessment/Plan Problem List: (1) Right kidney mass Status: Acute Plan: -- Solid mass R mid kidney suspicious for renal cell carcinoma, awaiting biopsy -- On heparin gtt, last dose coumadin on 01/12. -- CEA normal (2) Left ventricular thrombosis without NE Status: Acute Plan: --on heparin gtt (3) PNA (pneumonia) Status: Acute Plan: --on antibiotics Assessment 51 y/o male with history of CHF presents to the ER with persistent LE edema. Oncology consulted for renal mass suspicious for renal cell carcinoma. Plan 1.biopsy today in IR 2. monitor INR--1.6 today 3. monitor CBC 4. await pathology Attending Statement The exam, history, and the medical decision-making described in the above note were completed with the assistance of the mid-level provider. I reviewed and agree with the findings presented. I attest that I had a [id number] encounter with the patient on the same day, and personally performed and documented my assessment and findings in the medical record. Belén Blanc January 14, 2017 10:47 Giancarlo Huang MD January 14, 2017 23:22
--- NOTE | 2017-01-14 12:22 | HHI.GIFU ---
Subjective Remarks Resting in bed. RLE sore. No n/v. no abdominal pain. tolerating diet. Objective Vitals I&O Vital Signs Date Time Temp Pulse Resp B/P Pulse Ox O2 Delivery O2 Flow Rate FiO2 01/14/17 11:33 18 01/14/17 08:00 97.9 95 18 116/77 95 01/14/17 04:00 Room Air 01/14/17 04:00 97.6 81 20 158/75 98 01/14/17 00:00 Room Air 01/14/17 00:00 97.1 83 20 110/75 98 01/13/17 20:00 Room Air 01/13/17 20:00 97.6 89 22 74/ 99 01/13/17 20:00 87 01/13/17 18:09 98 21 01/13/17 16:00 97.3 90 18 106/64 98 I/O 01/13/17 01/13/17 01/13/17 01/14/17 01/14/17 01/14/17 07:00 15:00 23:00 07:00 15:00 23:00 Intake Total 420 ml 960 ml 320 ml 183 ml Output Total 100 ml 600 ml Balance 320 ml 960 ml -280 ml 183 ml Intake Oral 420 ml 960 ml 320 ml IV Total 183 ml Output Urine Total 100 ml 600 ml # Voids 4 # Bowel Movements 0 3 Laboratory Laboratory Tests Test 01/13/17 01/13/17 01/13/17 01/13/17 13:54 14:09 17:04 17:17 White Blood Count 14.2 Red Blood Count 4.34 Hemoglobin 11.2 Hematocrit 36.3 Mean Corpuscular Volume 83.6 Mean Corpuscular Hemoglobin 25.8 Mean Corpuscular Hemoglobin 30.8 Concent Red Cell Distribution Width 16.0 Platelet Count 292 Mean Platelet Volume 9.4 Neutrophils (%) (Auto) 68.6 Lymphocytes (%) (Auto) 18.7 Monocytes (%) (Auto) 8.9 Eosinophils (%) (Auto) 2.5 Basophils (%) (Auto) 1.3 Neutrophils # (Auto) 9.7 Lymphocytes # (Auto) 2.6 Monocytes # (Auto) 1.3 Eosinophils # (Auto) 0.4 Basophils # (Auto) 0.2 CBC Comment DIFF FINAL Differential Comment Prothrombin Time 30.7 Prothromb Time International 2.7 Ratio Activated Partial 61.9 71.8 Thromboplast Time Sodium Level 123 Potassium Level 4.9 Chloride Level 91 Carbon Dioxide Level 23.9 Anion Gap 8 Blood Urea Nitrogen 41 Creatinine 1.20 Estimat Glomerular Filtration 63 Rate Random Glucose 131 Calcium Level 7.8 Test 01/13/17 01/14/17 01/14/17 23:04 02:45 07:21 Prothrombin Time 29.8 18.2 Prothromb Time International 2.6 1.6 Ratio Activated Partial 79.1 54.1 Thromboplast Time Sodium Level 131 133 Potassium Level 3.7 3.4 Chloride Level 93 91 Carbon Dioxide Level 31.8 32.6 Anion Gap 6 9 Blood Urea Nitrogen 38 36 Creatinine 1.15 1.12 Estimat Glomerular Filtration 67 69 Rate Random Glucose 132 103 Calcium Level 7.2 8.1 Protein Corrected Calcium 7.7 Iron Level 20 Total Iron Binding Capacity 406 Percent Iron Saturation 4.9 Ferritin 85 Total Protein 6.1 6.8 Tumor Marker Alpha Fetoprotein 5.6 Vancomycin Level Trough 23.6 White Blood Count 13.6 Red Blood Count 4.36 Hemoglobin 11.2 Hematocrit 36.0 Mean Corpuscular Volume 82.6 Mean Corpuscular Hemoglobin 25.7 Mean Corpuscular Hemoglobin 31.1 Concent Red Cell Distribution Width 15.7 Platelet Count 271 Mean Platelet Volume 9.8 Magnesium Level 2.4 Total Bilirubin 0.5 Direct Bilirubin 0.2 Indirect Bilirubin 0.3 Aspartate Amino Transf 83 (AST/SGOT) Alanine Aminotransferase 161 (ALT/SGPT) Alkaline Phosphatase 149 Albumin 2.7 Date/Time Procedure Status Source Growth 01/13/17 08:35 Stool Occult Blood (KEERTHI) - Final Complete Stool Stool HEMOCCULT NEGATIVE 01/11/17 17:30 Urine Culture - Final Complete Urine Catheterized Urine NO GROWTH IN 48 HOURS. Imaging Last Impressions Upper Extremity Ultrasound 01/11/17 0000 Signed Impressions: Service Date/Time: Wednesday, January 11, 2017 09:38 - CONCLUSION: 1. Thrombosis of the cephalic vein. The remainder of the venous system of the right upper extremity is widely patent. Josh Cadet MD Abdomen/Pelvis CT 01/11/17 0000 Signed Impressions: Service Date/Time: Wednesday, January 11, 2017 18:34 - CONCLUSION: 1. Large amount of abdominal ascites. 2. Solid mass right mid kidney concerning for renal cell carcinoma. 3. Small right pleural effusion. 4. Anasarca. Mariano Oakley MD Abdomen Ultrasound 01/11/17 0000 Signed Impressions: Service Date/Time: Wednesday, January 11, 2017 14:15 - CONCLUSION: There is no significant ascites evident. Dru Cadet MD FACR Chest X-Ray 01/10/17 0000 Signed Impressions: Service Date/Time: Tuesday, January 10, 2017 03:18 - CONCLUSION: 1. Small to moderate right-sided pleural effusion. 2. Right lower lung infiltrate 3. Pulmonary venous congestion. August Elmore MD Physical Exam HEENT: Normocephalic; atraumatic; no jaundice. CHEST: CTA, diminished CARDIAC: RRR. ABDOMEN: Soft, distended, mild right sided tenderness; no hepatosplenomegaly; bowel sounds are present in all four quadrants. Ascites EXTREMITIES: Mild ble edema. SKIN: Normal; no rash; no jaundice. SITE SAFETY MANAGER: No focal deficits; alert and oriented times three. Assessment and Plan Plan ASSESMENT: - Abdominal pain. Abdomen/Pelvis CT (01/11/17)------> 1. Large amount of abdominal ascites. 2. Solid mass right mid kidney concerning for renal cell carcinoma. 3. Small right pleural effusion. 4. Anasarca. Abdomen Ultrasound (01/11/17)-----> There is no significant ascites evident. Pt had multiple bowel movements. Still with right sided abdominal pain. Does have elevated LFTs, although bilirubin normal. T. Bili 0.3, AST 124, ALT 194, Alk Phosph 171. Not enough fluid for paracentesis. Pt on coumadin for left ventricular thrombus, thrombosis of the cephalic vein, so would not recommend taking off anticoagulation for endoscopic evaluation. IMPROVED. - Abdominal distention, likely multifactorial secondary to both ascites and constipation. Improved. Still appears to have significant ascites on exam. Last US with no significant ascites evident. Improved. - Constipation. Miralax. Multiple BMs. - Leukocytosis. WBC 13.6. Afebrile. Vanco, Zosyn. - Elevated LFTs. No biliary obstruction on CT or US. ? congestive hepatopathy. Liver workup to r/o underlying liver disease- Hepatitis panel negative, GLORIA pending, AMA pending, ASMA pending, Ceruloplasmin pending, Alpha 1 antitrypsin pending, AFP 5.6. Ferritin 85, Iron saturation 4.9%. - Hyperammonemia. Lactulose - Anemia. Mild. 11.2/36.0. No active gi bleeding. - CHF, Lasix per primary - Right kidney mass, concerning for RCC. Oncology following - Left Ventricular Thrombus, Thrombosis of the cephalic vein. Hematology consulted. - COPD/PNA, TRAM with electrolyte abnormalities. per primary. PLAN: - Low sodium diet - Cont. PPI - Cont. Miralax - Await GLORIA, ASMA, AMA - Await Ceruloplasmin, Alpha 1 Antitrypsin - Diuretics per primary - Hematology/oncology following - Supportive care - Further recommendations to follow based on results of above - Pt seen and examined by Dr. Kelly and myself and this note is written on his behalf Lidia Saini January 14, 2017 12:22
[2017-01-14 18:54] LABS: PERITONEAL HISTIOCYTES 1 %; PERITONEAL LYMPHS 42 %; PERITONEAL MESOTHELIAL 6 %; PERITONEAL MONOS 5 %; PERITONEAL POLYS(SEGS) 46 %; PERITONEAL WBC 397 /MM3 (0-10)
[2017-01-14] MEDS ORDERED: POTASSIUM CHLORIDE 20 MEQ CONTROLLED RELEASE TAB PO ONE (19:00)
--- NOTE | 2017-01-14 20:49 | HHI.PR ---
Subjective Remarks She complains of increased pain in the left lower extremity as well as swelling of the left thigh. Denies chest pain or shortness of breath Denies fevers or chills WBC trending down Potassium low Afebrile with stable vital signs Objective Vitals Vital Signs Date Time Temp Pulse Resp B/P Pulse Ox O2 Delivery O2 Flow Rate FiO2 01/14/17 18:29 18 01/14/17 17:32 80 01/14/17 16:20 80 16 101/68 99 106/78 01/14/17 16:00 98.4 86 16 103/59 100 01/14/17 15:27 98 Room Air 01/14/17 15:22 97.1 83 18 105/72 98 01/14/17 12:00 98.2 82 18 97/54 96 01/14/17 08:00 97.9 95 18 116/77 95 01/14/17 04:00 Room Air 01/14/17 04:00 97.6 81 20 158/75 98 01/14/17 00:00 Room Air 01/14/17 00:00 97.1 83 20 110/75 98 I/O 01/13/17 01/13/17 01/13/17 01/14/17 01/14/17 01/14/17 07:00 15:00 23:00 07:00 15:00 23:00 Intake Total 420 ml 960 ml 320 ml 183 ml 240 ml 200 ml Output Total 100 ml 600 ml 1500 ml Balance 320 ml 960 ml -280 ml 183 ml -1260 ml 200 ml Intake Oral 420 ml 960 ml 320 ml 240 ml IV Total 183 ml 200 ml Output Urine Total 100 ml 600 ml 1500 ml # Voids 4 # Bowel Movements 0 3 3 Result Diagram: 01/14/1721 01/14/1721 Imaging Last Impressions Upper Extremity Ultrasound 01/11/17 0000 Signed Impressions: Service Date/Time: Wednesday, January 11, 2017 09:38 - CONCLUSION: 1. Thrombosis of the cephalic vein. The remainder of the venous system of the right upper extremity is widely patent. Josh Cadet MD Abdomen/Pelvis CT 01/11/17 0000 Signed Impressions: Service Date/Time: Wednesday, January 11, 2017 18:34 - CONCLUSION: 1. Large amount of abdominal ascites. 2. Solid mass right mid kidney concerning for renal cell carcinoma. 3. Small right pleural effusion. 4. Anasarca. Mariano Oakley MD Abdomen Ultrasound 01/11/17 0000 Signed Impressions: Service Date/Time: Wednesday, January 11, 2017 14:15 - CONCLUSION: There is no significant ascites evident. Dru Cadet MD FACR Chest X-Ray 01/10/17 0000 Signed Impressions: Service Date/Time: Tuesday, January 10, 2017 03:18 - CONCLUSION: 1. Small to moderate right-sided pleural effusion. 2. Right lower lung infiltrate 3. Pulmonary venous congestion. August Elmore MD Objective Remarks GENERAL: Well-developed well-nourished. In no acute distress. SKIN: Warm and dry. RUE with palpable and tender superficial veins. HEENT: Normocephalic. Pupils equal and round. Mucous membranes pink and moist. JVD. CARDIOVASCULAR: Regular rate and rhythm. No murmur appreciated. RESPIRATORY: No accessory muscle use. Crackles at the bases. GASTROINTESTINAL: Abdomen soft, non-tender, distended. Bowel sounds x4. MUSCULOSKELETAL: No obvious deformities. No clubbing or cyanosis. +2 edema on the right foot and 2+ edema on the left associated with erythema and tenderness on palpation. Thigh is bigger when compared to the right. NEUROLOGICAL: Awake and alert. No focal neurological deficits. Moves upper and lower extremities spontaneously. Normal speech. PSYCHIATRIC: Awake and alert. Procedures sp Abdominal paracentesis 01/14/17 Medications and IVs Current Medications Medications (Trade) Dose Ordered Sig/Vishal Route Start Time Stop Time Status Last Admin (Lasix Inj) 20 mg BID@ IV PUSH 01/10/17 09:00 01/14/17 17:02 (NS Flush) 2 ml UNSCH PRN IV FLUSH 01/10/17 04:45 (NS Flush) 2 ml BID IV FLUSH 01/10/17 09:00 01/14/17 10:11 (Zofran Inj) 4 mg Q6H PRN IVP 01/10/17 04:45 01/11/17 04:15 (Dulcolax Supp) 10 mg DAILY PRN RECTAL 01/10/17 04:45 (Tylenol) 650 mg Q6H PRN PO 01/10/17 04:45 (Neurontin) 900 mg TID PO 01/10/17 09:00 01/14/17 17:03 ([place] 10-325 Mg) 1 tab Q6H PRN PO 01/11/17 07:43 01/14/17 17:02 (Coreg) 3.125 mg Q12HR PO 01/11/17 09:00 01/14/17 10:11 Polyethylene Glycol 17 gm 17 gm BID PO 01/11/17 11:30 01/12/17 08:47 (Coumadin Consult Pharmacy) 0 ml @ 0 mls/hr UNSCH OTHER 01/12/17 12:00 Lactulose 30 ml 30 ml DAILY PO 01/12/17 12:15 01/13/17 08:21 Piperacillin Sod/ Tazobactam Sod 100 ml @ 200 mls/hr Q6H IV 01/12/17 14:00 01/14/17 14:50 Pharmacy Profile Note 0 ml @ 0 mls/hr UNSCH OTHER 01/12/17 12:15 Heparin Sodium/ Dextrose 250 ml @ 0 mls/hr TITRATE IV 01/13/17 02:00 Hold 01/13/17 19:18 (Vancomycin Inj/ NS 500 ml Inj) 515 ml @ 250 mls/hr Q18H IV 01/14/17 21:00 Miscellaneous Information SPECIFIC LAB TO BE DRAWN:VANCOMYCIN TROUGH DATE TO... ONCE ONCE .XX 01/17/17 02:45 01/17/17 02:46 Urinary Catheter: No Vascular Central Line Catheter: No A/P Problem List: (1) CHF (congestive heart failure) ICD Code: I50.9 Status: Acute (2) COPD (chronic obstructive pulmonary disease) ICD Code: J44.9 Status: Chronic (3) PNA (pneumonia) ICD Code: J18.9 Status: Acute (4) TRAM (acute kidney injury) ICD Code: N17.9 Status: Resolved (5) Hyperkalemia ICD Code: E87.5 Status: Resolved (6) Right kidney mass ICD Code: N28.89 Status: Acute (7) Hypokalemia ICD Code: E87.6 Status: Acute (8) Left ventricular thrombosis without AL ICD Code: I51.3 Status: Acute Assessment and Plan 51-year-old male with a PMH of HTN, COPD, Fibromyalgia, GERD, CHF (Echo 12/28/16 w / EF 20%) who presented w/ complaints of bilateral lower extremity edema and increasing pain Sepsis Present on admission patient with leukocytosis and tachycardia with heart rate 100. Sepsis likely secondary to pneumonia and left lower extremity cellulitis. Continue IV antibiotics. Check blood cultures. CHF Acute on chronic systolic CHF. Echo 12/28/16 w/ EF 20%. S/p eval by cardiology on recent admit 12/27-01/09/17 for CHF, pleural effusion s/p thoracentesis and PNA. Presented with chance of breath and edema. CXR w/ small to moderate right -sided pleural effusion and pulmonary venous congestion. - 20 mg IV Lasix BID. - Monitor I/Os. - Started carvedilol. - BRANDON hose for edema. - PT for DECKER. Renal mass Noted on US and CT. Concerning for renal cell carcinoma. Pt says he knew he had a renal mass but failed to follow up on it. Oncology consult appreciated. - IR consult for renal biopsy. - vitamin K given. - Coumadin changed to heparin gtt. - resume heparin gtt after abdominal paracentesis. Heparin will need to be held prior to kidney biopsy. PNA CXR w/ RLL infiltrate. Afebrile, WBC 13. Productive cough. Recently hospitalized. - Continue IV Abx. Will switch to vancomycin and Zosyn to treat for HCAP. - oxygen and DuoNebs prn. TRAM Resolved after IV fluid administration. Continue to monitor BUN/creatinine and Mr. I's and O's. Avoid nephrotoxins Left Ventricular Thrombus Seen on recent echocardiogram. - on heparin gtt. - Resume after paracentesis Abdominal pain and distention Positive fluid wave. Elevated LFTs, new finding. Ultrasound and CT with ascites. Albumin 3. Hepatitis panel negative. Gastroenterology consult appreciated. - follow up with GI. - trend LFTs. - ammonia level elevated. Started lactulose - monitor ammonia level. - sp abdominal paracentesis. Fu peritoneal fluid analysis. Thrombosis of the cephalic vein Noted on US. - continue heparin gtt. - hematology following. Hyperkalemia resolved after treatment with Kayexalate. Potassium now low. Will replace orally and continue to monitor BMP. Scrotal edema Due to Anasarca - continue with diuresis. LLE Cellulitis - Continue IV Vancomycin and IV Zosyn - Will check MRI left foot to r/o absces/osteomyelitis. Check left lotion with intravenous Doppler to rule out DVT. DVT Prophylaxis: On heparin gtt. Discharge Planning Continue to monitor on the medical floor. Problem Qualifiers (1) CHF (congestive heart failure): Qualified Code: I50.23 - Acute on chronic systolic congestive heart failure (2) COPD (chronic obstructive pulmonary disease): Qualified Code: J43.9 - Pulmonary emphysema, unspecified emphysema type Josh Ogden MD January 14, 2017 20:49
[2017-01-14] MEDS: HEPARIN-D5W INJ 250 ML IV SCH (23:38)
[2017-01-15] VITALS: BP 103/66; PULSE 81; RESP 18; TEMP 98; O2SAT 98
[2017-01-15 02:27] LABS: AUTOMATED NEUTROPHIL # 8.2 TH/MM3 (1.8-7.7); BASOPHIL # 0.1 TH/MM3 (0-0.2); BASOPHIL % 0.7 % (0.0-2.0); EOSINOPHIL # 0.5 TH/MM3 (0-0.4); EOSINOPHIL % 4.3 % (0.0-4.0); HEMATOCRIT 35.9 % (39.0-51.0); HEMO FLAGS DIFF FINAL; LYMPH % 20.7 % (9.0-44.0); LYMPHOCYTE # 2.5 TH/MM3 (1.0-4.8); MEAN CORPUSCULAR HEMOGLOBIN 25.5 PG (27.0-34.0); MEAN CORPUSCULAR HGB CONC 30.7 % (32.0-36.0); MONO % 7.8 % (0.0-8.0); NEUT % 66.5 % (16.0-70.0); PLATELET COUNT 303 TH/MM3 (150-450); RED BLOOD COUNT 4.32 MIL/MM3 (4.50-5.90); RED CELL DISTRIBUTION WIDTH 16.2 % (11.6-17.2); WHITE BLOOD COUNT 12.3 TH/MM3 (4.0-11.0)
[2017-01-15 02:32] LABS: ALKALINE PHOSPHATASE 132 U/L (45-117); ALT (GPT) 129 U/L (12-78); ANION GAP 7 MEQ/L (5-15); AST (GOT) 58 U/L (15-37); BICARBONATE 34.1 MEQ/L (21.0-32.0); BLOOD UREA NITROGEN 32 MG/DL (7-18); CHLORIDE 95 MEQ/L (98-107); GLOMERULAR FILTRATION RATE 61 ML/MIN (>89); MAGNESIUM 2.1 MG/DL (1.5-2.5); POTASSIUM 3.3 MEQ/L (3.5-5.1); SODIUM (NA) 136 MEQ/L (136-145); TOTAL BILIRUBIN ADULT 0.5 MG/DL (0.2-1.0)
[2017-01-15 02:35] LABS: APTT (PATIENT) 38.3 SEC (24.3-30.1); INTERNATIONAL NORMALIZED RATIO 1.2 RATIO; PROTHROMBIN TIME - PATIENT 13.9 SEC (9.8-11.6)
[2017-01-15] MEDS: PIPERACIL-TAZO 4.5 GM PREMIX 100 ML IV SCH ×4 (02:48→19:54)
[2017-01-15 04:00] VITALS: BP 104/55; PULSE 79; RESP 20; TEMP 98.1; O2SAT 96
[2017-01-15] MEDS: ACETAMINOPHEN/HYDROcodone 325 MG/10 MG TAB PO PRN ×2 (04:37→19:54)
[2017-01-15 08:00] VITALS: BP 109/63; PULSE 88; RESP 20; TEMP 97.9; O2SAT 93
[2017-01-15] MEDS: SODIUM CHLORIDE 0.9% FLUSH 10 ML FLUSH IV FLUSH SCH ×2 (08:42→19:55)
[2017-01-15] MEDS: FUROSEMIDE 20 MG/2 ML VIAL IV PUSH SCH ×2 (08:42→16:34)
[2017-01-15] MEDS: GABAPENTIN 300 MG CAP PO SCH ×4 (08:43→16:36)
[2017-01-15] MEDS: LACTULOSE SYRUP 20 GM/30 ML CUP PO SCH (08:43)
[2017-01-15] MEDS: POLYETHYLENE GLYCOL 17 GM PKG PO SCH ×2 (08:43→19:54)
[2017-01-15] MEDS: CARVEDILOL 3.125 MG TAB PO SCH ×2 (08:43→19:54)
[2017-01-15] MEDS ORDERED: POTASSIUM CHLORIDE 10 MEQ CONTROLLED RELEASE TAB PO ONE (10:00)
--- NOTE | 2017-01-15 11:07 | RADRPT ---
EXAM DATE/TIME: 01/15/2017 09:50 [facility] COMPARISON: No previous studies available for comparison. INDICATIONS : Left leg swelling. MEDICAL HISTORY : Hypertension. Gastroesophageal reflux disease. Osteoporosis. CHF. Arthritis. SURGICAL HISTORY : Left knee surgery. ENCOUNTER: Initial ACUITY: 2 day PAIN SCORE: 3/10 LOCATION: Left leg. TECHNIQUE: Venous ultrasound of the leg was performed from the inguinal ligament to the proximal calf. Real-caterina e, color Doppler and spectral tracing, compression and augmentation techniques were used. FINDINGS: There is normal compressibility of the deep venous system from the inguinal region to the proximal ca lf. No echogenic clot is seen in the lumen of the common femoral, femoral, popliteal, and posterior tibial veins. There is a normal response of the venous system to proximal and distal augmentation an d respiration. CONCLUSION: 1. No evidence of deep venous thrombosis. Andrew Dennis MD on January 15, 2017 at 11:05 Board Certified Radiologist. This report was verified electronically.
--- NOTE | 2017-01-15 11:31 | RADRPT ---
EXAM DATE/TIME: 01/13/2017 00:00 [facility] COMPARISON: CT ABDOMEN & PELVIS W CONTRAST, January 11, 2017, 18:34. Consultation; I have been asked to biopsy the solid 4.5 cm enhancing mass right kidney most consistent with renal c ell carcinoma. The patient has ascites and deep venous thrombosis and is currently being heparinized and converted to Coumadin. The best course of action would be to consult with urology and interventional radiology for percutane ous biopsy and perhaps definitive therapy with cryoablation or surgery. The biopsy should be performed just prior to definitive treatment. When we have the plan for definitive treatment will be happy to biopsy this mass and assess in this p atient's care. Thank you for this consultation.. Dru Cadet MD FACR on January 15, 2017 at 11:26 Board Certified Radiologist. This report was verified electronically.
[2017-01-15] MEDS ORDERED: GADODIAMIDE PF 287 MG/ML 20 ML VIAL (for RAD MRI) IV ONE (11:40)
[2017-01-15 12:00] VITALS: BP 107/72; PULSE 87; RESP 18; TEMP 97.9; O2SAT 96
--- NOTE | 2017-01-15 12:13 | RADRPT ---
EXAM DATE/TIME: 01/15/2017 11:08 [facility] COMPARISON: No previous studies available for comparison. INDICATIONS : Abscess. Top of left foot red and swollen. CONTRAST: 16 cc Omniscan (gadodiamide) IV MEDICAL HISTORY : Congestive heart failure. Hypertension. SURGICAL HISTORY : Arthroscopy. ENCOUNTER: Subsequent ACUITY: 3 day PAIN SCORE: 4/10 LOCATION: Left foot TECHNIQUE: Multiplanar, multisequence MRI examination was performed without contrast and after the intravenous a dministration of gadolinium. FINDINGS: There is extensive soft tissue swelling over the dorsum of the foot. There is no evidence of abscess. There is no marrow edema to suggest osteomyelitis. There is severe osteoarthritis involving the firs t metatarsophalangeal joint. CONCLUSION: 1. Cellulitis without evidence of osteomyelitis Andrew Dennis MD on January 15, 2017 at 12:10 Board Certified Radiologist. This report was verified electronically.
[2017-01-15] MEDS ORDERED: COLCHICINE 0.6 MG TAB PO ONE ×2 (12:30→13:30)
--- NOTE | 2017-01-15 12:57 | PD.ONC.PN ---
Subjective Subjective Remarks Afebrile overnight. Patient says his stomach is smaller since paracentesis yesterday. Resting comfortably in room. Objective Data Date Time Temp Pulse Resp B/P Pulse Ox O2 Delivery O2 Flow Rate FiO2 01/15/17 12:12 93 Room Air 01/15/17 12:00 97.9 87 18 107/72 96 01/15/17 08:00 97.9 88 20 109/63 93 01/15/17 04:00 98.1 79 20 104/55 96 01/15/17 00:00 98.0 81 18 103/66 98 01/14/17 20:35 Room Air 01/14/17 20:00 98.1 88 20 99/60 97 01/14/17 20:00 91 01/14/17 18:29 18 01/14/17 17:32 80 01/14/17 16:20 80 16 101/68 99 106/78 01/14/17 16:00 98.4 86 16 103/59 100 01/14/17 15:27 98 Room Air 01/14/17 15:22 97.1 83 18 105/72 98 01/15/17 01/15/17 01/15/17 07:00 15:00 23:00 Intake Total 320 ml Output Total 325 ml Balance -5 ml Result Diagram: 01/15/17 0145 01/15/17 0145 Laboratory Results Laboratory Tests Test 01/14/17 01/15/17 15:43 01:45 Peritoneal Fluid WBC 397 /MM3 Peritoneal Fluid RBC 868 /MM3 Peritoneal Fluid Neutrophils 46 % Peritoneal Fluid Lymphocytes 42 % Peritoneal Fluid Monocytes 5 % Peritoneal Fluid Mesothelial 6 % Cells Peritoneal Fluid Histiocytes 1 % Peritoneal Fluid Comment Peritoneal Fluid Total Protein 3.3 GM/DL Peritoneal Fluid Albumin 1.5 G/DL Peritoneal Fluid LDH 137 U/L Peritoneal Fluid Glucose 113 MG/DL White Blood Count 12.3 TH/MM3 Red Blood Count 4.32 MIL/MM3 Hemoglobin 11.0 GM/DL Hematocrit 35.9 % Mean Corpuscular Volume 83.0 FL Mean Corpuscular Hemoglobin 25.5 PG Mean Corpuscular Hemoglobin 30.7 % Concent Red Cell Distribution Width 16.2 % Platelet Count 303 TH/MM3 Mean Platelet Volume 9.4 FL Neutrophils (%) (Auto) 66.5 % Lymphocytes (%) (Auto) 20.7 % Monocytes (%) (Auto) 7.8 % Eosinophils (%) (Auto) 4.3 % Basophils (%) (Auto) 0.7 % Neutrophils # (Auto) 8.2 TH/MM3 Lymphocytes # (Auto) 2.5 TH/MM3 Monocytes # (Auto) 1.0 TH/MM3 Eosinophils # (Auto) 0.5 TH/MM3 Basophils # (Auto) 0.1 TH/MM3 CBC Comment DIFF FINAL Differential Comment Prothrombin Time 13.9 SEC Prothromb Time International 1.2 RATIO Ratio Activated Partial 38.3 SEC Thromboplast Time Sodium Level 136 MEQ/L Potassium Level 3.3 MEQ/L Chloride Level 95 MEQ/L Carbon Dioxide Level 34.1 MEQ/L Anion Gap 7 MEQ/L Blood Urea Nitrogen 32 MG/DL Creatinine 1.24 MG/DL Estimat Glomerular Filtration 61 ML/MIN Rate Random Glucose 76 MG/DL Calcium Level 7.7 MG/DL Phosphorus Level 2.8 MG/DL Magnesium Level 2.1 MG/DL Total Bilirubin 0.5 MG/DL Aspartate Amino Transf 58 U/L (AST/SGOT) Alanine Aminotransferase 129 U/L (ALT/SGPT) Alkaline Phosphatase 132 U/L Total Protein 6.4 GM/DL Albumin 2.6 GM/DL Culture Results Microbiology Date/Time Procedure Status Source Growth 01/13/17 08:35 Stool Occult Blood (KEERTHI) - Final Complete Stool Stool HEMOCCULT NEGATIVE 01/14/17 15:43 Gram Stain - Final Resulted Fluid Peritoneal Fluid 01/14/17 15:43 Body Fluid Culture Resulted Fluid Peritoneal Fluid Pending 01/15/17 01:45 Aerobic Blood Culture Received Blood Peripheral Pending 01/15/17 01:45 Anaerobic Blood Culture Received Blood Peripheral Pending 01/15/17 01:45 Aerobic Blood Culture Received Blood Peripheral Pending 01/15/17 01:45 Anaerobic Blood Culture Received Blood Peripheral Pending Imaging Studies Last 24 hours Impressions Lower Extremity Ultrasound 01/15/17 0000 Signed Impressions: Service Date/Time: Sunday, January 15, 2017 09:50 - CONCLUSION: 1. No evidence of deep venous thrombosis. Andrew Dennis MD Foot MRI 01/15/17 0000 Signed Impressions: Service Date/Time: Sunday, January 15, 2017 11:08 - CONCLUSION: 1. Cellulitis without evidence of osteomyelitis Andrew Dennis MD Administered Medications Medications (Trade) Dose Ordered Sig/Vishal Route PRN Reason Start Time Stop Time Status Last Admin Dose Admin Furosemide (Lasix Inj) 20 mg BID@09,18 IV PUSH 01/10/17 09:00 01/15/17 08:42 Sodium Chloride (NS Flush) 2 ml BID IV FLUSH 01/10/17 09:00 01/15/17 08:42 Ondansetron HCl (Zofran Inj) 4 mg Q6H PRN IVP NAUSEA OR VOMITING 01/10/17 04:45 01/11/17 04:15 Gabapentin (Neurontin) 900 mg TID PO 01/10/17 09:00 01/15/17 08:43 Acetaminophen/ Hydrocodone Bitart ([place] 10-325 Mg) 1 tab Q6H PRN PO PAIN 3-10 01/11/17 07:43 01/15/17 04:37 Carvedilol (Coreg) 3.125 mg Q12HR PO 01/11/17 09:00 01/15/17 08:43 Polyethylene Glycol (Miralax) 17 gm BID PO 01/11/17 11:30 01/12/17 08:47 Lactulose 30 ml 30 ml DAILY PO 01/12/17 12:15 01/13/17 08:21 Piperacillin Sod/ Tazobactam Sod 100 ml @ 200 mls/hr Q6H IV 01/12/17 14:00 01/15/17 08:41 Heparin Sodium/ Dextrose 250 ml @ 0 mls/hr TITRATE IV 01/13/17 02:00 01/14/17 23:38 Vancomycin HCl/ Sodium Chloride (Vancomycin Inj/ NS 500 ml Inj) 515 ml @ 250 mls/hr Q18H IV 01/14/17 21:00 01/14/17 20:40 Objective Remarks GENERAL: Middle aged male, sitting up in room in [facility]. SKIN: Warm and dry. HEAD: Normocephalic. EYES: No injection or drainage. NECK: Supple, trachea midline. CARDIOVASCULAR: Regular rate and rhythm RESPIRATORY: diminished at bases. occasional rhonchi GASTROINTESTINAL: Abdomen mildly distended. EXTREMITIES: No cyanosis NEUROLOGICAL: awake and alert. normal speech. moving extremities. Assessment/Plan Problem List: (1) Right kidney mass Status: Acute Plan: -- Solid mass R mid kidney suspicious for renal cell carcinoma, awaiting biopsy -- On heparin gtt, last dose coumadin on 01/12. -- CEA normal (2) Left ventricular thrombosis without LA Status: Acute Plan: --on heparin gtt (3) PNA (pneumonia) Status: Acute Plan: --on antibiotics Assessment 51 y/o male with history of CHF presents to the ER with persistent LE edema. Oncology consulted for renal mass suspicious for renal cell carcinoma. Plan 1. monitor CBC 2. await biopsy in IR 3. await pathology from cytology Attending Statement The exam, history, and the medical decision-making described in the above note were completed with the assistance of the mid-level provider. I reviewed and agree with the findings presented. I attest that I had a [id number] encounter with the patient on the same day, and personally performed and documented my assessment and findings in the medical record. Cytology pending. Further recs after results are available Belén Blanc January 15, 2017 12:57 Giancarlo uHang MD January 15, 2017 22:34
[2017-01-15 13:01] LABS: APTT (PATIENT) 39.5 SEC (24.3-30.1)
--- NOTE | 2017-01-15 14:14 | PD.CONS ---
HPI Service Urology Consult Requested By Primary Care Physician No Primary Care Physician Diagnosis: (1) CHF (congestive heart failure) ICD Code: I50.9 (2) COPD (chronic obstructive pulmonary disease) ICD Code: J44.9 (3) PNA (pneumonia) ICD Code: J18.9 (4) TRAM (acute kidney injury) ICD Code: N17.9 (5) Hyperkalemia ICD Code: E87.5 (6) Right kidney mass ICD Code: N28.89 (7) Hypokalemia ICD Code: E87.6 (8) Left ventricular thrombosis without [place] ICD Code: I51.3 History of Present Illness 51-year-old male admitted with lower extremity swelling with edema. Patient known to have a history of CHF with an ejection fraction of 20% and a left ventricular thrombus on Coumadin. Patient underwent a CT scan which demonstrated a 5 cm right renal mass. He also has elevated LFTs on admission with ascites. He is undergone thoracentesis with a large amount of fluid drained. He denies any history of renal failure or family history of malignancies in the past. He does note nocturia from 1-3 times at night. No family history of prostate cancers noted. He denies any history of gross hematuria or stones or infections. Other medical problems include: GERD, hypertension, hyperlipidemia, ventricular thrombus, recent diagnosis of celiac vein thrombosis, fibromyalgia, COPD/asthma. Review of Systems Constitutional: DENIES: Diaphoretic episodes Eyes: DENIES: Blurred vision Ears, nose, mouth, throat: DENIES: Tinnitus Respiratory: COMPLAINS OF: Shortness of breath Cardiovascular: DENIES: Chest pain Gastrointestinal: COMPLAINS OF: Abdominal pain Musculoskeletal: COMPLAINS OF: Joint pain Integumentary: DENIES: Abnormal pigmentation Hematologic/lymphatic: DENIES: Bruising Immunologic/allergic: DENIES: Eczema Neurologic: DENIES: Abnormal gait Psychiatric: DENIES: Anxiety Past Family Social History Past Medical History CHF with ejection fraction of 20% Ventricular thrombus; celiac vein thrombosis Hyperlipidemia Hypertension COPD/asthma GERD Fibromyalgia Right renal mass Past Surgical History Arthroscopic left knee surgery Allergies: Coded Allergies: Ibuprofen (Verified Allergy, Severe, Nausea/Vomiting, 01/10/17) Levaquin (Verified Allergy, Mild, EDEMA, 01/10/17) Ultram (Verified Allergy, Mild, ITCHING, 01/10/17) Family History No family history of prostate cancer or malignancies Social History Prior history of heavy smoking; over 35 years Moderate alcohol intake is noted Physical Exam Vital Signs Date Time Temp Pulse Resp B/P Pulse Ox O2 Delivery O2 Flow Rate FiO2 01/15/17 12:12 93 Room Air 01/15/17 12:00 97.9 87 18 107/72 96 01/15/17 08:00 97.9 88 20 109/63 93 01/15/17 04:00 98.1 79 20 104/55 96 01/15/17 00:00 98.0 81 18 103/66 98 01/14/17 20:35 Room Air 01/14/17 20:00 98.1 88 20 99/60 97 01/14/17 20:00 91 01/14/17 18:29 18 01/14/17 17:32 80 01/14/17 16:20 80 16 101/68 99 106/78 01/14/17 16:00 98.4 86 16 103/59 100 01/14/17 15:27 98 Room Air 01/14/17 15:22 97.1 83 18 105/72 98 Physical Exam GENERAL: This is a well-nourished, well-developed patient, in no apparent distress. SKIN: No rashes, ecchymoses or lesions. Cool and dry. HEAD: Atraumatic. Normocephalic. No temporal or scalp tenderness. EYES: Pupils equal round and reactive. Extraocular motions intact. No scleral icterus. No injection or drainage. ENT: Nose without bleeding, purulent drainage or septal hematoma. Throat without erythema, tonsillar hypertrophy or exudate. Uvula midline. Airway patent. NECK: Trachea midline. No JVD or lymphadenopathy. Supple, nontender, no meningeal signs. CARDIOVASCULAR: Regular rate and rhythm without murmurs, gallops, or rubs. RESPIRATORY: Clear to auscultation. Breath sounds equal bilaterally. No wheezes , rales, or rhonchi. GASTROINTESTINAL: Abdomen soft, non-tender, nondistended. No hepato-splenomegaly , or palpable masses. No guarding. GENITOURINARY: Normal phallus and testes are descended MUSCULOSKELETAL: Extremities with 2+ edema. NEUROLOGICAL: Awake and alert. Cranial nerves II through XII intact. Motor and sensory grossly within normal limits. Five out of 5 muscle strength in all muscle groups. Normal speech. Laboratory Tests Test 01/14/17 01/15/17 01/15/17 15:43 01:45 12:27 Peritoneal Fluid WBC 397 Peritoneal Fluid RBC 868 Peritoneal Fluid Neutrophils 46 Peritoneal Fluid Lymphocytes 42 Peritoneal Fluid Monocytes 5 Peritoneal Fluid Mesothelial 6 Cells Peritoneal Fluid Histiocytes 1 Peritoneal Fluid Comment Peritoneal Fluid Total Protein 3.3 Peritoneal Fluid Albumin 1.5 Peritoneal Fluid LDH 137 Peritoneal Fluid Glucose 113 White Blood Count 12.3 Red Blood Count 4.32 Hemoglobin 11.0 Hematocrit 35.9 Mean Corpuscular Volume 83.0 Mean Corpuscular Hemoglobin 25.5 Mean Corpuscular Hemoglobin 30.7 Concent Red Cell Distribution Width 16.2 Platelet Count 303 Mean Platelet Volume 9.4 Neutrophils (%) (Auto) 66.5 Lymphocytes (%) (Auto) 20.7 Monocytes (%) (Auto) 7.8 Eosinophils (%) (Auto) 4.3 Basophils (%) (Auto) 0.7 Neutrophils # (Auto) 8.2 Lymphocytes # (Auto) 2.5 Monocytes # (Auto) 1.0 Eosinophils # (Auto) 0.5 Basophils # (Auto) 0.1 CBC Comment DIFF FINAL Differential Comment Prothrombin Time 13.9 Prothromb Time International 1.2 Ratio Activated Partial 38.3 39.5 Thromboplast Time Sodium Level 136 Potassium Level 3.3 Chloride Level 95 Carbon Dioxide Level 34.1 Anion Gap 7 Blood Urea Nitrogen 32 Creatinine 1.24 Estimat Glomerular Filtration 61 Rate Random Glucose 76 Uric Acid 6.0 Calcium Level 7.7 Phosphorus Level 2.8 Magnesium Level 2.1 Total Bilirubin 0.5 Aspartate Amino Transf 58 (AST/SGOT) Alanine Aminotransferase 129 (ALT/SGPT) Alkaline Phosphatase 132 Total Protein 6.4 Albumin 2.6 Date/Time Procedure Status Source Growth 01/15/17 01:45 Aerobic Blood Culture Received Blood Peripheral Pending 01/15/17 01:45 Anaerobic Blood Culture Received Blood Peripheral Pending 01/14/17 15:43 Gram Stain - Final Resulted Fluid Peritoneal Fluid 01/14/17 15:43 Body Fluid Culture Resulted Fluid Peritoneal Fluid Pending 01/13/17 08:35 Stool Occult Blood (KEERTHI) - Final Complete Stool Stool HEMOCCULT NEGATIVE 01/11/17 17:30 Urine Culture - Final Complete Urine Catheterized Urine NO GROWTH IN 48 HOURS. Result Diagram: 01/15/17 0145 01/15/17 0145 Imaging Last Impressions Lower Extremity Ultrasound 01/15/17 0000 Signed Impressions: Service Date/Time: Sunday, January 15, 2017 09:50 - CONCLUSION: 1. No evidence of deep venous thrombosis. Andrew Dennis MD Foot MRI 01/15/17 0000 Signed Impressions: Service Date/Time: Sunday, January 15, 2017 11:08 - CONCLUSION: 1. Cellulitis without evidence of osteomyelitis Andrew Dennis MD Upper Extremity Ultrasound 01/11/17 0000 Signed Impressions: Service Date/Time: Wednesday, January 11, 2017 09:38 - CONCLUSION: 1. Thrombosis of the cephalic vein. The remainder of the venous system of the right upper extremity is widely patent. Josh Cadet MD Abdomen/Pelvis CT 01/11/17 0000 Signed Impressions: Service Date/Time: Wednesday, January 11, 2017 18:34 - CONCLUSION: 1. Large amount of abdominal ascites. 2. Solid mass right mid kidney concerning for renal cell carcinoma. 3. Small right pleural effusion. 4. Anasarca. Mariano Oakley MD Abdomen Ultrasound 01/11/17 0000 Signed Impressions: Service Date/Time: Wednesday, January 11, 2017 14:15 - CONCLUSION: There is no significant ascites evident. Dru Cadet MD FACR Chest X-Ray 01/10/17 0000 Signed Impressions: Service Date/Time: Tuesday, January 10, 2017 03:18 - CONCLUSION: 1. Small to moderate right-sided pleural effusion. 2. Right lower lung infiltrate 3. Pulmonary venous congestion. August Elmore MD Assessment and Plan Assessment and Plan 51-year-old male with findings of a 5.8 x 4.5 x 4.8 cm right renal mass with elevated LFTs; suggestive of Kostas syndrome. Patient is on anticoagulation therapy for recent DVT and history of ventricular thrombus with underlying CHF an ejection fraction of 20%. Patient will need a MRI to evaluate the right renal mass as well as to rule out any evidence of renal vein thrombosis/caval thrombus Patient will need medical optimization and will need to be off anticoagulation therapy prior to proceeding with right radical nephrectomy. Location of tumor is too centralized to consider right partial nephrectomy. This possibility may be done as an outpatient in the future after anticoagulation can be discontinued and he is medically optimized. Thank you for the consult and allowing me to precipitate in the care of this patient. Problem Qualifiers (1) CHF (congestive heart failure): Qualified Code: I50.23 - Acute on chronic systolic congestive heart failure (2) COPD (chronic obstructive pulmonary disease): Qualified Code: J43.9 - Pulmonary emphysema, unspecified emphysema type Nolan Sage DO January 15, 2017 14:14
[2017-01-15] MEDS: VANCOMYCIN INJ 1,500 MG in SODIUM CHLORID 0.9% 500 ML INJ 500 ML IV SCH (15:42)
[2017-01-15 16:00] VITALS: BP 116/62; PULSE 85; RESP 18; TEMP 97.6; O2SAT 96
--- NOTE | 2017-01-15 16:10 | HHI.PR ---
Subjective Remarks Deferred entry, the patient seen earlier at 12:20 PM. Patient complains of bilateral foot pain, more localized to the right than the left Has pain over the first metatarsophalangeal joint of the right foot. Denies fevers or chills Stable vital signs Objective Vitals Vital Signs Date Time Temp Pulse Resp B/P Pulse Ox O2 Delivery O2 Flow Rate FiO2 01/15/17 12:12 93 Room Air 01/15/17 12:00 97.9 87 18 107/72 96 01/15/17 08:00 97.9 88 20 109/63 93 01/15/17 04:00 98.1 79 20 104/55 96 01/15/17 00:00 98.0 81 18 103/66 98 01/14/17 20:35 Room Air 01/14/17 20:00 98.1 88 20 99/60 97 01/14/17 20:00 91 01/14/17 18:29 18 01/14/17 17:32 80 01/14/17 16:20 80 16 101/68 99 106/78 I/O 01/14/17 01/14/17 01/14/17 01/15/17 01/15/17 01/15/17 07:00 15:00 23:00 07:00 15:00 23:00 Intake Total 183 ml 240 ml 581 ml 320 ml Output Total 1500 ml 500 ml 325 ml Balance 183 ml -1260 ml 81 ml -5 ml Intake Oral 240 ml 0 ml 320 ml IV Total 183 ml 581 ml Output Urine Total 1500 ml 500 ml 325 ml # Bowel Movements 3 0 1 Result Diagram: 01/15/17 0145 01/15/17 0145 Imaging Last Impressions Lower Extremity Ultrasound 01/15/17 0000 Signed Impressions: Service Date/Time: Sunday, January 15, 2017 09:50 - CONCLUSION: 1. No evidence of deep venous thrombosis. Andrew Dennis MD Foot MRI 01/15/17 0000 Signed Impressions: Service Date/Time: Sunday, January 15, 2017 11:08 - CONCLUSION: 1. Cellulitis without evidence of osteomyelitis Andrew Dennis MD Upper Extremity Ultrasound 01/11/17 0000 Signed Impressions: Service Date/Time: Wednesday, January 11, 2017 09:38 - CONCLUSION: 1. Thrombosis of the cephalic vein. The remainder of the venous system of the right upper extremity is widely patent. Josh Cadet MD Abdomen/Pelvis CT 01/11/17 0000 Signed Impressions: Service Date/Time: Wednesday, January 11, 2017 18:34 - CONCLUSION: 1. Large amount of abdominal ascites. 2. Solid mass right mid kidney concerning for renal cell carcinoma. 3. Small right pleural effusion. 4. Anasarca. Mariano Oakley MD Abdomen Ultrasound 01/11/17 0000 Signed Impressions: Service Date/Time: Wednesday, January 11, 2017 14:15 - CONCLUSION: There is no significant ascites evident. Dru Cadet MD FACR Chest X-Ray 01/10/17 0000 Signed Impressions: Service Date/Time: Tuesday, January 10, 2017 03:18 - CONCLUSION: 1. Small to moderate right-sided pleural effusion. 2. Right lower lung infiltrate 3. Pulmonary venous congestion. August Elmore MD Objective Remarks GENERAL: Well-developed well-nourished. In no acute distress. SKIN: Warm and dry. RUE with palpable and tender superficial veins. HEENT: Normocephalic. Pupils equal and round. Mucous membranes pink and moist. JVD. CARDIOVASCULAR: Regular rate and rhythm. No murmur appreciated. RESPIRATORY: No accessory muscle use. Crackles at the bases. GASTROINTESTINAL: Abdomen soft, non-tender, distended. Bowel sounds x4. MUSCULOSKELETAL: No obvious deformities. No clubbing or cyanosis. +2 edema on the right foot and 2+ edema on the left associated with erythema and tenderness on palpation. Thigh is bigger when compared to the right. There is some tenderness and swelling as well as erythema in the first metatarsophalangeal joint. Erythema of left lower extremity seems to be slightly improved. NEUROLOGICAL: Awake and alert. No focal neurological deficits. Moves upper and lower extremities spontaneously. Normal speech. PSYCHIATRIC: Awake and alert. Procedures sp Abdominal paracentesis 01/14/17 Medications and IVs Current Medications Medications (Trade) Dose Ordered Sig/Vishal Route Start Time Stop Time Status Last Admin (Lasix Inj) 20 mg BID@ IV PUSH 01/10/17 09:00 01/15/17 08:42 (NS Flush) 2 ml UNSCH PRN IV FLUSH 01/10/17 04:45 (NS Flush) 2 ml BID IV FLUSH 01/10/17 09:00 01/15/17 08:42 (Zofran Inj) 4 mg Q6H PRN IVP 01/10/17 04:45 01/11/17 04:15 (Dulcolax Supp) 10 mg DAILY PRN RECTAL 01/10/17 04:45 (Tylenol) 650 mg Q6H PRN PO 01/10/17 04:45 (Neurontin) 900 mg TID PO 01/10/17 09:00 01/15/17 15:41 ([place] 10-325 Mg) 1 tab Q6H PRN PO 01/11/17 07:43 01/15/17 04:37 (Coreg) 3.125 mg Q12HR PO 01/11/17 09:00 01/15/17 08:43 Polyethylene Glycol 17 gm 17 gm BID PO 01/11/17 11:30 01/12/17 08:47 (Coumadin Consult Pharmacy) 0 ml @ 0 mls/hr UNSCH OTHER 01/12/17 12:00 Lactulose 30 ml 30 ml DAILY PO 01/12/17 12:15 01/13/17 08:21 Piperacillin Sod/ Tazobactam Sod 100 ml @ 200 mls/hr Q6H IV 01/12/17 14:00 01/15/17 15:42 Pharmacy Profile Note 0 ml @ 0 mls/hr UNSCH OTHER 01/12/17 12:15 Heparin Sodium/ Dextrose 250 ml @ 0 mls/hr TITRATE IV 01/13/17 02:00 01/14/17 23:38 (Vancomycin Inj/ NS 500 ml Inj) 515 ml @ 250 mls/hr Q18H IV 01/14/17 21:00 01/15/17 15:42 Miscellaneous Information SPECIFIC LAB TO BE DRAWN:VANCOMYCIN TROUGH DATE TO... ONCE ONCE .XX 01/17/17 02:45 01/17/17 02:46 (Morphine Inj) 2 mg Q3H PRN IV PUSH 01/15/17 12:30 Urinary Catheter: No Vascular Central Line Catheter: No A/P Problem List: (1) CHF (congestive heart failure) ICD Code: I50.9 Status: Acute (2) COPD (chronic obstructive pulmonary disease) ICD Code: J44.9 Status: Chronic (3) PNA (pneumonia) ICD Code: J18.9 Status: Acute (4) TRAM (acute kidney injury) ICD Code: N17.9 Status: Resolved (5) Hyperkalemia ICD Code: E87.5 Status: Resolved (6) Right kidney mass ICD Code: N28.89 Status: Acute (7) Hypokalemia ICD Code: E87.6 Status: Acute (8) Left ventricular thrombosis without [place] ICD Code: I51.3 Status: Acute Assessment and Plan 51-year-old male with a PMH of HTN, COPD, Fibromyalgia, GERD, CHF (Echo 12/28/16 w / EF 20%) who presented w/ complaints of bilateral lower extremity edema and increasing pain Sepsis Present on admission patient with leukocytosis and tachycardia with heart rate 100. Sepsis likely secondary to pneumonia and left lower extremity cellulitis. Continue IV Zosyn and IV vancomycin. Follow-up blood cultures which are pending. WBC seems to be trending down, down to 12.3 from 8.6. CHF Acute on chronic systolic CHF. Echo 12/28/16 w/ EF 20%. S/p eval by cardiology on recent admit 12/27-01/09/17 for CHF, pleural effusion s/p thoracentesis and PNA. Presented with chance of breath and edema. CXR w/ small to moderate right -sided pleural effusion and pulmonary venous congestion. - 20 mg IV Lasix BID. - Monitor I/Os. - Started carvedilol. - BRANDON hose for edema. - PT for DECKER. Renal mass Noted on US and CT. Concerning for renal cell carcinoma. Pt says he knew he had a renal mass but failed to follow up on it. Oncology consult appreciated. - IR consult for renal biopsy. - vitamin K given. - Coumadin changed to heparin gtt. Discussed the case with Dr. Cadet over the phone, he suggests obtaining a urology consultation to obtain a most definitive treatment. Biopsy could be done at the time of definitive treatment. I will consult urology. PNA CXR w/ RLL infiltrate. Afebrile, WBC 13. Productive cough. Recently hospitalized. - Continue IV Abx. Continue IV vancomycin and IV Zosyn for possible HCAP. - oxygen and DuoNebs prn. TRAM Resolved after IV fluid administration. Continue to monitor BUN/creatinine and Mr. I's and O's. Avoid nephrotoxins Left Ventricular Thrombus Seen on recent echocardiogram. - on heparin gtt. Abdominal pain and distention Positive fluid wave. Elevated LFTs, new finding. Ultrasound and CT with ascites. Albumin 3. Hepatitis panel negative. Gastroenterology consult appreciated. - follow up with GI. - trend LFTs. - ammonia level elevated. Started lactulose - monitor ammonia level. - sp abdominal paracentesis. Peritoneal fluid analysis does not look infectious. Has 397 WBCs, with 868 RBCs. Thrombosis of the cephalic vein Noted on US. - continue heparin gtt. - hematology following. Hyperkalemia resolved after treatment with Kayexalate. Potassium now low. Will replace orally and continue to monitor BMP. Scrotal edema Due to Anasarca - continue with diuresis. LLE Cellulitis - Continue IV Vancomycin and IV Zosyn - Will check MRI left foot to r/o absces/osteomyelitis. Check left lotion with intravenous Doppler to rule out DVT. 01/15 MRI of the left lower extremity shows cellulitis without evidence of osteomyelitis. Left lotion with Doppler ultrasound ruled out DVT. Will consult infectious disease to help with antibiotic management. Acute gouty attack - right foot has tender inflamed first metatarsophalangeal joint, concurrent with gout. Will treat with oral colchicine. Will check uric acid levels. DVT Prophylaxis: On heparin gtt. Discharge Planning Continue to monitor on the medical floor. Problem Qualifiers (1) CHF (congestive heart failure): Qualified Code: I50.23 - Acute on chronic systolic congestive heart failure (2) COPD (chronic obstructive pulmonary disease): Qualified Code: J43.9 - Pulmonary emphysema, unspecified emphysema type Josh Ogden MD January 15, 2017 16:09
--- NOTE | 2017-01-15 16:30 | HHI.GIFU ---
Subjective Remarks Pt sitting in chair, visiting with friend. Says no nausea in day and a half which is improvement. C/o BLE pain and swelling and redness. Objective Vitals I&O Vital Signs Date Time Temp Pulse Resp B/P Pulse Ox O2 Delivery O2 Flow Rate FiO2 01/15/17 12:12 93 Room Air 01/15/17 12:00 97.9 87 18 107/72 96 01/15/17 08:00 97.9 88 20 109/63 93 01/15/17 04:00 98.1 79 20 104/55 96 01/15/17 00:00 98.0 81 18 103/66 98 01/14/17 20:35 Room Air 01/14/17 20:00 98.1 88 20 99/60 97 01/14/17 20:00 91 01/14/17 18:29 18 01/14/17 17:32 80 I/O 01/14/17 01/14/17 01/14/17 01/15/17 01/15/17 01/15/17 07:00 15:00 23:00 07:00 15:00 23:00 Intake Total 183 ml 240 ml 581 ml 320 ml Output Total 1500 ml 500 ml 325 ml Balance 183 ml -1260 ml 81 ml -5 ml Intake Oral 240 ml 0 ml 320 ml IV Total 183 ml 581 ml Output Urine Total 1500 ml 500 ml 325 ml # Bowel Movements 3 0 1 Laboratory Laboratory Tests Test 01/15/17 01/15/17 01:45 12:27 White Blood Count 12.3 Red Blood Count 4.32 Hemoglobin 11.0 Hematocrit 35.9 Mean Corpuscular Volume 83.0 Mean Corpuscular Hemoglobin 25.5 Mean Corpuscular Hemoglobin 30.7 Concent Red Cell Distribution Width 16.2 Platelet Count 303 Mean Platelet Volume 9.4 Neutrophils (%) (Auto) 66.5 Lymphocytes (%) (Auto) 20.7 Monocytes (%) (Auto) 7.8 Eosinophils (%) (Auto) 4.3 Basophils (%) (Auto) 0.7 Neutrophils # (Auto) 8.2 Lymphocytes # (Auto) 2.5 Monocytes # (Auto) 1.0 Eosinophils # (Auto) 0.5 Basophils # (Auto) 0.1 CBC Comment DIFF FINAL Differential Comment Prothrombin Time 13.9 Prothromb Time International 1.2 Ratio Activated Partial 38.3 39.5 Thromboplast Time Sodium Level 136 Potassium Level 3.3 Chloride Level 95 Carbon Dioxide Level 34.1 Anion Gap 7 Blood Urea Nitrogen 32 Creatinine 1.24 Estimat Glomerular Filtration 61 Rate Random Glucose 76 Uric Acid 6.0 Calcium Level 7.7 Phosphorus Level 2.8 Magnesium Level 2.1 Total Bilirubin 0.5 Aspartate Amino Transf 58 (AST/SGOT) Alanine Aminotransferase 129 (ALT/SGPT) Alkaline Phosphatase 132 Total Protein 6.4 Albumin 2.6 Date/Time Procedure Status Source Growth 01/15/17 01:45 Aerobic Blood Culture Received Blood Peripheral Pending 01/15/17 01:45 Anaerobic Blood Culture Received Blood Peripheral Pending 01/14/17 15:43 Gram Stain - Final Resulted Fluid Peritoneal Fluid 01/14/17 15:43 Body Fluid Culture Resulted Fluid Peritoneal Fluid Pending 01/13/17 08:35 Stool Occult Blood (KEERTHI) - Final Complete Stool Stool HEMOCCULT NEGATIVE 01/11/17 17:30 Urine Culture - Final Complete Urine Catheterized Urine NO GROWTH IN 48 HOURS. Imaging Last Impressions Lower Extremity Ultrasound 01/15/17 0000 Signed Impressions: Service Date/Time: Sunday, January 15, 2017 09:50 - CONCLUSION: 1. No evidence of deep venous thrombosis. Andrew Dennis MD Foot MRI 01/15/17 0000 Signed Impressions: Service Date/Time: Sunday, January 15, 2017 11:08 - CONCLUSION: 1. Cellulitis without evidence of osteomyelitis Andrew Dennis MD Upper Extremity Ultrasound 01/11/17 0000 Signed Impressions: Service Date/Time: Wednesday, January 11, 2017 09:38 - CONCLUSION: 1. Thrombosis of the cephalic vein. The remainder of the venous system of the right upper extremity is widely patent. Josh Cadet MD Abdomen/Pelvis CT 01/11/17 0000 Signed Impressions: Service Date/Time: Wednesday, January 11, 2017 18:34 - CONCLUSION: 1. Large amount of abdominal ascites. 2. Solid mass right mid kidney concerning for renal cell carcinoma. 3. Small right pleural effusion. 4. Anasarca. Mariano Oakley MD Abdomen Ultrasound 01/11/17 0000 Signed Impressions: Service Date/Time: Wednesday, January 11, 2017 14:15 - CONCLUSION: There is no significant ascites evident. Dru Cadet MD FACR Chest X-Ray 01/10/17 0000 Signed Impressions: Service Date/Time: Tuesday, January 10, 2017 03:18 - CONCLUSION: 1. Small to moderate right-sided pleural effusion. 2. Right lower lung infiltrate 3. Pulmonary venous congestion. August Elmore MD Physical Exam HEENT: Normocephalic; atraumatic; no jaundice. CHEST: CTA, diminished CARDIAC: RRR. ABDOMEN: Soft, distended, mild LUQ TTP; no hepatosplenomegaly; bowel sounds are present in all four quadrants. Ascites EXTREMITIES: moderate BLE edema, redness, weeping. SKIN: Normal; no rash; no jaundice. LAMINATION SPINNER: No focal deficits; alert and oriented times three. Assessment and Plan Plan ASSESMENT: - Abdominal pain. Abdomen/Pelvis CT (01/11/17)------> 1. Large amount of abdominal ascites. 2. Solid mass right mid kidney concerning for renal cell carcinoma. 3. Small right pleural effusion. 4. Anasarca. Abdomen Ultrasound (01/11/17)-----> There is no significant ascites evident. Pt had multiple bowel movements. Still with right sided abdominal pain. Does have elevated LFTs which have been trending down, although bilirubin normal. T. Bili 0.3, AST 58, ALT 129, Alk Phosph 132. Pt on coumadin for left ventricular thrombus, thrombosis of the cephalic vein, so would not recommend taking off anticoagulation for endoscopic evaluation. IMPROVED. - Abdominal distention, likely multifactorial secondary to both ascites and constipation. Improved. Still appears to have significant ascites on exam. Last US with no significant ascites evident. Improved. - Constipation. Miralax. Multiple BMs. - Leukocytosis. WBC 12.3. Afebrile. Vanco, Zosyn. - Elevated LFTs. No biliary obstruction on CT or US. ? congestive hepatopathy. Liver workup to r/o underlying liver disease- Hepatitis panel negative, GLOIRA neg, AMA pending, ASMA neg, Ceruloplasmin pending, Alpha 1 antitrypsin 211, AFP 5.6. Ferritin 85, Iron saturation 4.9%. - Hyperammonemia. Lactulose - Anemia. Mild. 11.2/36.0. No active gi bleeding. - CHF, Lasix per primary - Right kidney mass, concerning for RCC. Oncology following - Left Ventricular Thrombus, Thrombosis of the cephalic vein. Hematology consulted. - COPD/PNA, TRAM with electrolyte abnormalities. per primary. PLAN: - Low sodium diet - Cont. PPI - Cont. Miralax - await rest of liver w/u, so far neg - Diuretics per primary - Hematology/oncology following - Supportive care - Further recommendations to follow based on results of above - Pt seen and examined by Dr. Kelly and myself and this note is written on his behalf Yoko Alegria January 15, 2017 16:30
[2017-01-15] MEDS: MORPHINE SULFATE 4 MG/ML INJ IV PUSH PRN ×2 (16:33→22:31)
[2017-01-15 20:00] VITALS: BP 131/79; PULSE 91; PULSE 99; RESP 18; TEMP 97.1; O2SAT 100
[2017-01-15 22:37] LABS: APTT (PATIENT) 73.9 SEC (24.3-30.1)
[2017-01-16] VITALS (7 sets, daily range): BP systolic 105–133; BP diastolic 56–80; PULSE 62–93; RESP 17–18; TEMP 97.5–98.4; O2SAT 95–100
[2017-01-16] MEDS: ACETAMINOPHEN/HYDROcodone 325 MG/10 MG TAB PO PRN ×3 (02:26→18:29)
[2017-01-16] MEDS: PIPERACIL-TAZO 4.5 GM PREMIX 100 ML IV SCH ×4 (02:26→20:21)
[2017-01-16] MEDS: MORPHINE SULFATE 4 MG/ML INJ IV PUSH PRN ×3 (06:17→21:00)
[2017-01-16] MEDS: HEPARIN-D5W INJ 250 ML IV SCH ×2 (06:23→18:29)
[2017-01-16 07:18] LABS: HEMATOCRIT 39.1 % (39.0-51.0); MEAN CELL VOLUME 83.9 FL (80.0-100.0); MEAN CORPUSCULAR HEMOGLOBIN 25.2 PG (27.0-34.0); MEAN CORPUSCULAR HGB CONC 30.1 % (32.0-36.0); PLATELET COUNT 269 TH/MM3 (150-450); RED BLOOD COUNT 4.66 MIL/MM3 (4.50-5.90); RED CELL DISTRIBUTION WIDTH 16.1 % (11.6-17.2); REVIEW FLAG FINAL; WHITE BLOOD COUNT 11.6 TH/MM3 (4.0-11.0)
[2017-01-16 07:24] LABS: APTT (PATIENT) 39.8 SEC (24.3-30.1); INTERNATIONAL NORMALIZED RATIO 1.1 RATIO
[2017-01-16] MEDS: GABAPENTIN 300 MG CAP PO SCH ×3 (09:39→18:29)
[2017-01-16] MEDS: LACTULOSE SYRUP 20 GM/30 ML CUP PO SCH (09:40)
[2017-01-16] MEDS: CARVEDILOL 3.125 MG TAB PO SCH ×2 (09:40→20:21)
[2017-01-16] MEDS: POLYETHYLENE GLYCOL 17 GM PKG PO SCH ×2 (09:40→20:07)
[2017-01-16] MEDS: FUROSEMIDE 20 MG/2 ML VIAL IV PUSH SCH ×2 (09:40→18:00)
[2017-01-16] MEDS: SODIUM CHLORIDE 0.9% FLUSH 10 ML FLUSH IV FLUSH SCH ×2 (09:41→20:22)
[2017-01-16 10:30] LABS: BICARBONATE 34.5 MEQ/L (21.0-32.0)
[2017-01-16] MEDS ORDERED: GADODIAMIDE PF 287 MG/ML 10 ML VIAL (for RAD MRI) IV ONE (11:16)
[2017-01-16] MEDS: VANCOMYCIN INJ 1,500 MG in SODIUM CHLORID 0.9% 500 ML INJ 500 ML IV SCH (11:52)
--- NOTE | 2017-01-16 11:52 | RADRPT ---
EXAM DATE/TIME: 01/16/2017 10:37 [place] COMPARISON: CT ABDOMEN & PELVIS W CONTRAST, January 11, 2017, 18:34. INDICATIONS : Renal mass. CONTRAST: 10 cc Omniscan (gadodiamide) IV MEDICAL HISTORY : Hypertension. Congestive heart failure. SURGICAL HISTORY : None. ENCOUNTER: Initial ACUITY: 1 day PAIN SCORE: 0/10 LOCATION: Abdomen TECHNIQUE: Multiplanar, multisequence magnetic resonance imaging of the abdomen was performed without and with i ntravenous contrast. FINDINGS: LIVER: Normal size with normal signal intensity. No lesion is identified. Portal vein is within normal limi ts. BILIARY: Gallbladder is nondistended with nonspecific diffuse wall thickening. No filling defects identified. SPLEEN: Within normal limits. PANCREAS: Within normal limits. ADRENALS: Within normal limits. KIDNEYS: Heterogeneously enhancing solid left renal mass centered in the mid pole again identified. It measure s 5.9 x 4.4 cm on the current study. No evidence of hydronephrosis. Left kidney within normal limits. Renal arteries and veins are grossly patent. OTHER: Ascites and right pleural effusion unchanged. CONCLUSION: 1. Heterogeneous solid right renal mass centered in the mid pole again seen. No enlarged lymph nodes identified. 2. Ascites and right pleural effusion again noted. 3. Nonspecific diffuse wall thickening of nondistended bladder may be due to hypoalbuminemia. Jose J Emery MD on January 16, 2017 at 11:45 Board Certified Radiologist. This report was verified electronically.
--- NOTE | 2017-01-16 14:05 | HHI.PR ---
Subjective Remarks pain in bilateral foot better still have edema in legs denies fevers/chills denies cp/sob vital signs stable Denies cough. Objective Vitals Vital Signs Date Time Temp Pulse Resp B/P Pulse Ox O2 Delivery O2 Flow Rate FiO2 01/16/17 11:00 97.5 92 17 108/70 98 01/16/17 08:00 97.8 88 17 105/80 98 01/16/17 00:00 98.1 86 18 106/67 99 01/16/17 00:00 97.8 85 18 109/63 96 01/15/17 20:00 97.1 91 18 131/79 100 01/15/17 20:00 Room Air 01/15/17 20:00 99 01/15/17 17:05 18 01/15/17 16:00 97.6 85 18 116/62 96 I/O 01/15/17 01/15/17 01/15/17 01/16/17 01/16/17 01/16/17 06:59 14:59 22:59 06:59 14:59 22:59 Intake Total 320 ml 480 ml 1688 ml 100 ml 240 ml Output Total 325 ml 750 ml 2400 ml 275 ml Balance -5 ml -270 ml -712 ml -175 ml 240 ml Intake Oral 320 ml 480 ml 240 ml 100 ml 240 ml IV Total 1448 ml Output Urine Total 325 ml 750 ml 2400 ml 275 ml # Bowel Movements 1 1 0 0 Result Diagram: 01/16/17 0621 01/16/17 0930 Imaging Last Impressions Abdomen MRI 01/16/17 0000 Signed Impressions: Service Date/Time: Monday, January 16, 2017 10:37 - CONCLUSION: 1. Heterogeneous solid right renal mass centered in the mid pole again seen. No enlarged lymph nodes identified. 2. Ascites and right pleural effusion again noted. 3. Nonspecific diffuse wall thickening of nondistended bladder may be due to hypoalbuminemia. Jose J Emery MD Lower Extremity Ultrasound 01/15/17 0000 Signed Impressions: Service Date/Time: Sunday, January 15, 2017 09:50 - CONCLUSION: 1. No evidence of deep venous thrombosis. Andrew Dennis MD Foot MRI 01/15/17 0000 Signed Impressions: Service Date/Time: Sunday, January 15, 2017 11:08 - CONCLUSION: 1. Cellulitis without evidence of osteomyelitis Andrew Dennis MD Upper Extremity Ultrasound 01/11/17 0000 Signed Impressions: Service Date/Time: Wednesday, January 11, 2017 09:38 - CONCLUSION: 1. Thrombosis of the cephalic vein. The remainder of the venous system of the right upper extremity is widely patent. Josh Cadet MD Abdomen/Pelvis CT 01/11/17 0000 Signed Impressions: Service Date/Time: Wednesday, January 11, 2017 18:34 - CONCLUSION: 1. Large amount of abdominal ascites. 2. Solid mass right mid kidney concerning for renal cell carcinoma. 3. Small right pleural effusion. 4. Anasarca. Mariano Oakley MD Abdomen Ultrasound 01/11/17 0000 Signed Impressions: Service Date/Time: Wednesday, January 11, 2017 14:15 - CONCLUSION: There is no significant ascites evident. Dru Cadet MD FACR Chest X-Ray 01/10/17 0000 Signed Impressions: Service Date/Time: Tuesday, January 10, 2017 03:18 - CONCLUSION: 1. Small to moderate right-sided pleural effusion. 2. Right lower lung infiltrate 3. Pulmonary venous congestion. August Elmore MD Objective Remarks GENERAL: Well-developed well-nourished. In no acute distress. SKIN: Warm and dry. RUE with palpable and tender superficial veins. HEENT: Normocephalic. Pupils equal and round. Mucous membranes pink and moist. JVD. CARDIOVASCULAR: Regular rate and rhythm. No murmur appreciated. RESPIRATORY: No accessory muscle use. Crackles at the bases. GASTROINTESTINAL: Abdomen soft, non-tender, distended. Bowel sounds x4. MUSCULOSKELETAL: No obvious deformities. No clubbing or cyanosis. +2 edema on the right foot and 2+ edema on the left associated with erythema and tenderness on palpation. Thigh is bigger when compared to the right. There is some tenderness and swelling as well as erythema in the first metatarsophalangeal joint. Erythema of left lower extremity seems to be slightly improved from previous day. NEUROLOGICAL: Awake and alert. No focal neurological deficits. Moves upper and lower extremities spontaneously. Normal speech. PSYCHIATRIC: Awake and alert. Procedures sp Abdominal paracentesis 01/14/17 Medications and IVs Current Medications Medications (Trade) Dose Ordered Sig/Vishal Route Start Time Stop Time Status Last Admin (Lasix Inj) 20 mg BID@09,18 IV PUSH 01/10/17 09:00 01/16/17 09:40 (NS Flush) 2 ml UNSCH PRN IV FLUSH 01/10/17 04:45 (NS Flush) 2 ml BID IV FLUSH 01/10/17 09:00 01/16/17 09:41 (Zofran Inj) 4 mg Q6H PRN IVP 01/10/17 04:45 01/11/17 04:15 (Dulcolax Supp) 10 mg DAILY PRN RECTAL 01/10/17 04:45 (Tylenol) 650 mg Q6H PRN PO 01/10/17 04:45 (Neurontin) 900 mg TID PO 01/10/17 09:00 01/16/17 13:17 ([place] 10-325 Mg) 1 tab Q6H PRN PO 01/11/17 07:43 01/16/17 09:38 (Coreg) 3.125 mg Q12HR PO 01/11/17 09:00 01/16/17 09:40 Polyethylene Glycol 17 gm 17 gm BID PO 01/11/17 11:30 01/16/17 09:40 (Coumadin Consult Pharmacy) 0 ml @ 0 mls/hr UNSCH OTHER 01/12/17 12:00 Lactulose 30 ml 30 ml DAILY PO 01/12/17 12:15 01/16/17 09:40 Piperacillin Sod/ Tazobactam Sod 100 ml @ 200 mls/hr Q6H IV 01/12/17 14:00 01/16/17 13:18 Pharmacy Profile Note 0 ml @ 0 mls/hr UNSCH OTHER 01/12/17 12:15 Heparin Sodium/ Dextrose 250 ml @ 0 mls/hr TITRATE IV 01/13/17 02:00 01/16/17 06:23 (Vancomycin Inj/ NS 500 ml Inj) 515 ml @ 250 mls/hr Q18H IV 01/14/17 21:00 01/16/17 11:52 Miscellaneous Information SPECIFIC LAB TO BE DRAWN:VANCOMYCIN TROUGH DATE TO... ONCE ONCE .XX 01/17/17 02:45 01/17/17 02:46 (Morphine Inj) 2 mg Q3H PRN IV PUSH 01/15/17 12:30 01/16/17 13:18 Urinary Catheter: No Vascular Central Line Catheter: No A/P Problem List: (1) CHF (congestive heart failure) ICD Code: I50.9 Status: Resolved (2) COPD (chronic obstructive pulmonary disease) ICD Code: J44.9 Status: Chronic (3) PNA (pneumonia) ICD Code: J18.9 Status: Acute (4) TRAM (acute kidney injury) ICD Code: N17.9 Status: Resolved (5) Hyperkalemia ICD Code: E87.5 Status: Resolved (6) Right kidney mass ICD Code: N28.89 Status: Acute (7) Hypokalemia ICD Code: E87.6 Status: Resolved (8) Left ventricular thrombosis without TN ICD Code: I51.3 Status: Acute Assessment and Plan 51-year-old male with a PMH of HTN, COPD, Fibromyalgia, GERD, CHF (Echo 12/28/16 w / EF 20%) who presented w/ complaints of bilateral lower extremity edema and increasing pain Sepsis Present on admission patient with leukocytosis and tachycardia with heart rate 100. Sepsis likely secondary to pneumonia and left lower extremity cellulitis. Continue IV Zosyn and IV vancomycin. WBC seems to be trending down, down to 12.3 from 8.6. 01/16 OD IV antibiotics as above. Leukocytosis resolved. Blood cultures negative 1. CHF Acute on chronic systolic CHF. Echo 12/28/16 w/ EF 20%. S/p eval by cardiology on recent admit 12/27-01/09/17 for CHF, pleural effusion s/p thoracentesis and PNA. Presented with chance of breath and edema. CXR w/ small to moderate right -sided pleural effusion and pulmonary venous congestion. - 20 mg IV Lasix BID. - Monitor I/Os. - Started carvedilol. - BRANDON hose for edema. - PT for DECKER. Renal mass/renal cell carcinoma Noted on US and CT. Concerning for renal cell carcinoma. Pt says he knew he had a renal mass but failed to follow up on it. Oncology consult appreciated. - IR consult for renal biopsy. - vitamin K given. - Coumadin changed to heparin gtt. Discussed the case with Dr. Cadet over the phone, he suggests obtaining a urology consultation to obtain a most definitive treatment. Biopsy could be done at the time of definitive treatment. 01/16 urology consulted. Appreciate recommendations. MRI of the abdomen requested. Showed heterogeneous solid right renal mass centered in the mid pole. No enlarged lymph nodes. Ascites and right pleural effusion. As per urology recommendations nephrectomy will have to be pursued after the patient is taken off of anticoagulation most likely as an outpatient. Hospital-acquired pneumonia CXR w/ RLL infiltrate. Afebrile, WBC 13. Productive cough. Recently hospitalized. - Continue IV Abx. Continue IV vancomycin and IV Zosyn for possible HCAP. - oxygen and DuoNebs prn. 01/16 repeat chest x-ray in a.m. TRAM Resolved after IV fluid administration. Continue to monitor BUN/creatinine and Mr. I's and O's. Avoid nephrotoxins Left Ventricular Thrombus Seen on recent echocardiogram. 01/16 I will continue heparin drip and resume Coumadin for an INR goal of 2-3. Abdominal pain and distention Positive fluid wave. Elevated LFTs, new finding. Ultrasound and CT with ascites. Albumin 3. Hepatitis panel negative. Gastroenterology consult appreciated. - follow up with GI. - trend LFTs. - ammonia level elevated. Started lactulose - monitor ammonia level. - sp abdominal paracentesis. Peritoneal fluid analysis does not look infectious. Has 397 WBCs, with 868 RBCs. Thrombosis of the cephalic vein Noted on US. Continue Heparin drip, start bridge to Coumadin Hyperkalemia resolved after treatment with Kayexalate. Hypokalemia Potassium replaced. Potassium level now 4.0. Continue to monitor BMP. Scrotal edema Due to Anasarca - continue with diuresis. Seems to be slowly improving LLE Cellulitis - Continue IV Vancomycin and IV Zosyn - 01/15 MRI of the left lower extremity shows cellulitis without evidence of osteomyelitis. Left lotion with Doppler ultrasound ruled out DVT. Will consult infectious disease to help with antibiotic management. Continue IV antibiotics. We'll consult infectious disease. Acute gouty attack - right foot has tender inflamed first metatarsophalangeal joint, concurrent with gout. 01/16 patient status post treatment with oral colchicine. Uric acid 6.0. DVT Prophylaxis: On heparin gtt. Discharge Planning Continue to monitor on the medical floor. Problem Qualifiers (1) CHF (congestive heart failure): Qualified Code: I50.23 - Acute on chronic systolic congestive heart failure (2) COPD (chronic obstructive pulmonary disease): Qualified Code: J43.9 - Pulmonary emphysema, unspecified emphysema type Josh Ogden MD January 16, 2017 14:05
--- NOTE | 2017-01-16 16:04 | HHI.GIFU ---
Subjective Remarks Patient is resting in bed, mild nausea, no vomiting, no abd pain Objective Vitals I&O Vital Signs Date Time Temp Pulse Resp B/P Pulse Ox O2 Delivery O2 Flow Rate FiO2 01/16/17 11:00 97.5 92 17 108/70 98 01/16/17 08:00 Room Air 01/16/17 08:00 97.8 88 17 105/80 98 01/16/17 07:53 81 01/16/17 00:00 98.1 86 18 106/67 99 01/16/17 00:00 97.8 85 18 109/63 96 01/15/17 20:00 97.1 91 18 131/79 100 01/15/17 20:00 Room Air 01/15/17 20:00 99 01/15/17 17:05 18 01/15/17 16:00 97.6 85 18 116/62 96 I/O 01/15/17 01/15/17 01/15/17 01/16/17 01/16/17 01/16/17 07:00 15:00 23:00 07:00 15:00 23:00 Intake Total 320 ml 480 ml 1688 ml 100 ml 1200 ml Output Total 325 ml 750 ml 2400 ml 275 ml 900 ml Balance -5 ml -270 ml -712 ml -175 ml 300 ml Intake Oral 320 ml 480 ml 240 ml 100 ml 1200 ml IV Total 1448 ml Output Urine Total 325 ml 750 ml 2400 ml 275 ml 900 ml # Bowel Movements 1 1 0 0 0 Laboratory Laboratory Tests Test 01/15/17 01/16/17 01/16/17 21:39 06:21 09:30 Activated Partial 73.9 39.8 Thromboplast Time White Blood Count 11.6 Red Blood Count 4.66 Hemoglobin 11.8 Hematocrit 39.1 Mean Corpuscular Volume 83.9 Mean Corpuscular Hemoglobin 25.2 Mean Corpuscular Hemoglobin 30.1 Concent Red Cell Distribution Width 16.1 Platelet Count 269 Mean Platelet Volume 9.4 Prothrombin Time 12.0 Prothromb Time International 1.1 Ratio Sodium Level 135 Potassium Level 4.0 Chloride Level 96 Carbon Dioxide Level 34.5 Anion Gap 5 Blood Urea Nitrogen 23 Creatinine 0.99 Estimat Glomerular Filtration 79 Rate Random Glucose 119 Calcium Level 8.1 Date/Time Procedure Status Source Growth 01/15/17 01:45 Aerobic Blood Culture - Preliminary Resulted Blood Peripheral NO GROWTH IN 1 DAY 01/15/17 01:45 Anaerobic Blood Culture - Preliminary Resulted Blood Peripheral NO GROWTH IN 1 DAY 01/14/17 15:43 Gram Stain - Final Resulted Fluid Peritoneal Fluid 01/14/17 15:43 Body Fluid Culture - Preliminary Resulted Fluid Peritoneal Fluid NO GROWTH IN 24 HOURS. 01/13/17 08:35 Stool Occult Blood (KEERTHI) - Final Complete Stool Stool HEMOCCULT NEGATIVE 01/11/17 17:30 Urine Culture - Final Complete Urine Catheterized Urine NO GROWTH IN 48 HOURS. Imaging Last Impressions Abdomen MRI 01/16/17 0000 Signed Impressions: Service Date/Time: Monday, January 16, 2017 10:37 - CONCLUSION: 1. Heterogeneous solid right renal mass centered in the mid pole again seen. No enlarged lymph nodes identified. 2. Ascites and right pleural effusion again noted. 3. Nonspecific diffuse wall thickening of nondistended bladder may be due to hypoalbuminemia. Jose J Emery MD Lower Extremity Ultrasound 01/15/17 0000 Signed Impressions: Service Date/Time: Sunday, January 15, 2017 09:50 - CONCLUSION: 1. No evidence of deep venous thrombosis. Andrew Dennis MD Foot MRI 01/15/17 0000 Signed Impressions: Service Date/Time: Sunday, January 15, 2017 11:08 - CONCLUSION: 1. Cellulitis without evidence of osteomyelitis Andrew Dennis MD Upper Extremity Ultrasound 01/11/17 0000 Signed Impressions: Service Date/Time: Wednesday, January 11, 2017 09:38 - CONCLUSION: 1. Thrombosis of the cephalic vein. The remainder of the venous system of the right upper extremity is widely patent. Josh Cadet MD Abdomen/Pelvis CT 01/11/17 0000 Signed Impressions: Service Date/Time: Wednesday, January 11, 2017 18:34 - CONCLUSION: 1. Large amount of abdominal ascites. 2. Solid mass right mid kidney concerning for renal cell carcinoma. 3. Small right pleural effusion. 4. Anasarca. Mariano Oakley MD Abdomen Ultrasound 01/11/17 0000 Signed Impressions: Service Date/Time: Wednesday, January 11, 2017 14:15 - CONCLUSION: There is no significant ascites evident. Dru Cadet MD FACR Chest X-Ray 01/10/17 0000 Signed Impressions: Service Date/Time: Tuesday, January 10, 2017 03:18 - CONCLUSION: 1. Small to moderate right-sided pleural effusion. 2. Right lower lung infiltrate 3. Pulmonary venous congestion. August Elmore MD Physical Exam HEENT: Normocephalic; atraumatic; no jaundice. CHEST: CTA, diminished CARDIAC: RRR. ABDOMEN: Soft, distended, mild LUQ TTP; no hepatosplenomegaly; bowel sounds are present in all four quadrants. Ascites EXTREMITIES: moderate BLE edema, redness, weeping. SKIN: Normal; no rash; no jaundice. ASSEMBLING INSPECTOR: No focal deficits; alert and oriented times three. Assessment and Plan Plan ASSESMENT: - Abdominal pain. Abdomen/Pelvis CT (01/11/17)------> 1. Large amount of abdominal ascites. 2. Solid mass right mid kidney concerning for renal cell carcinoma. 3. Small right pleural effusion. 4. Anasarca. Abdomen Ultrasound (01/11/17)-----> There is no significant ascites evident. Pt had multiple bowel movements. Still with right sided abdominal pain. Does have elevated LFTs which have been trending down, although bilirubin normal. T. Bili 0.3, AST 58, ALT 129, Alk Phosph 132. Pt on coumadin for left ventricular thrombus, thrombosis of the cephalic vein, so would not recommend taking off anticoagulation for endoscopic evaluation. IMPROVED. - Abdominal distention, likely multifactorial secondary to both ascites and constipation. Improved. Still appears to have significant ascites on exam. Last US with no significant ascites evident. Improved. - Constipation. Miralax. Multiple BMs. - Leukocytosis. WBC 12.3. Afebrile. Vanco, Zosyn. - Elevated LFTs. No biliary obstruction on CT or US. ? congestive hepatopathy. Liver workup to r/o underlying liver disease- Hepatitis panel negative, GLORIA neg, AMA pending, ASMA neg, Ceruloplasmin pending, Alpha 1 antitrypsin 211, AFP 5.6. Ferritin 85, Iron saturation 4.9%. - Hyperammonemia. Lactulose - Anemia. Mild. 11.2/36.0. No active gi bleeding. - CHF, Lasix per primary - Right kidney mass, concerning for RCC. Oncology following - Left Ventricular Thrombus, Thrombosis of the cephalic vein. Hematology consulted. - COPD/PNA, TRAM with electrolyte abnormalities. per primary. 01/16/17 Elevated LFTs- Improving, likely to congestive hepatopathy so far liver work up negative, some still pending PLAN: - Low sodium diet - Cont. PPI - await rest of liver w/u, so far neg - Diuretics per primary - Hematology/oncology following - GI will sign off - Pt seen and examined by Dr. Kelly and myself and this note is written on his behalf Kareem De Leon January 16, 2017 16:04
[2017-01-16] MEDS: WARFARIN SOD 5 MG TAB PO SCH (18:42)
[2017-01-17] VITALS: BP 108/73; PULSE 89; RESP 18; TEMP 97.5; O2SAT 95
[2017-01-17] MEDS: ACETAMINOPHEN/HYDROcodone 325 MG/10 MG TAB PO PRN ×4 (00:05→23:10)
[2017-01-17] MEDS: RESP: ALBUTEROL CONC 2.5 MG/0.5 ML NEB NEB PRN (00:47)
[2017-01-17] MEDS ORDERED: PHARMACY ORDERED LAB ONE (02:45)
[2017-01-17] MEDS: PIPERACIL-TAZO 4.5 GM PREMIX 100 ML IV SCH ×2 (03:38→09:02)
[2017-01-17] MEDS: MORPHINE SULFATE 4 MG/ML INJ IV PUSH PRN ×3 (03:43→20:56)
[2017-01-17 04:00] VITALS: BP 100/62; PULSE 78; RESP 16; TEMP 97.7; O2SAT 95
[2017-01-17] MEDS: VANCOMYCIN INJ 1,500 MG in SODIUM CHLORID 0.9% 500 ML INJ 500 ML IV SCH (04:12)
[2017-01-17 07:38] LABS: AUTOMATED NEUTROPHIL # 6.2 TH/MM3 (1.8-7.7); BASOPHIL # 0.1 TH/MM3 (0-0.2); BASOPHIL % 1.2 % (0.0-2.0); EOSINOPHIL # 0.8 TH/MM3 (0-0.4); EOSINOPHIL % 7.7 % (0.0-4.0); HEMATOCRIT 33.6 % (39.0-51.0); HEMO FLAGS DIFF FINAL; LYMPH % 24.9 % (9.0-44.0); LYMPHOCYTE # 2.7 TH/MM3 (1.0-4.8); MEAN CELL VOLUME 82.2 FL (80.0-100.0); MEAN CORPUSCULAR HEMOGLOBIN 25.3 PG (27.0-34.0); MEAN CORPUSCULAR HGB CONC 30.8 % (32.0-36.0); MONO % 8.8 % (0.0-8.0); NEUT % 57.4 % (16.0-70.0); PLATELET COUNT 243 TH/MM3 (150-450); RED BLOOD COUNT 4.09 MIL/MM3 (4.50-5.90); RED CELL DISTRIBUTION WIDTH 15.9 % (11.6-17.2); WHITE BLOOD COUNT 10.9 TH/MM3 (4.0-11.0)
[2017-01-17 07:44] LABS: INTERNATIONAL NORMALIZED RATIO 1.1 RATIO; PROTHROMBIN TIME - PATIENT 12.2 SEC (9.8-11.6)
[2017-01-17 08:00] VITALS: BP 120/60; PULSE 85; RESP 19; TEMP 98.2; O2SAT 93
[2017-01-17 08:03] LABS: APTT (PATIENT) 100.4 SEC (24.3-30.1)
[2017-01-17 08:14] LABS: ALKALINE PHOSPHATASE 84 U/L (45-117); ALT (GPT) 76 U/L (12-78); ANION GAP 6 MEQ/L (5-15); AST (GOT) 28 U/L (15-37); BICARBONATE 33.3 MEQ/L (21.0-32.0); BLOOD UREA NITROGEN 20 MG/DL (7-18); CHLORIDE 100 MEQ/L (98-107); GLOMERULAR FILTRATION RATE 96 ML/MIN (>89); POTASSIUM 3.9 MEQ/L (3.5-5.1); SODIUM (NA) 139 MEQ/L (136-145); TOTAL BILIRUBIN ADULT 0.4 MG/DL (0.2-1.0)
[2017-01-17] MEDS: GABAPENTIN 300 MG CAP PO SCH ×3 (08:52→18:57)
[2017-01-17] MEDS: LACTULOSE SYRUP 20 GM/30 ML CUP PO SCH (08:52)
[2017-01-17] MEDS: POLYETHYLENE GLYCOL 17 GM PKG PO SCH ×2 (08:52→20:43)
[2017-01-17] MEDS: CARVEDILOL 3.125 MG TAB PO SCH ×2 (08:53→20:56)
[2017-01-17] MEDS: SODIUM CHLORIDE 0.9% FLUSH 10 ML FLUSH IV FLUSH SCH ×2 (08:54→20:56)
[2017-01-17] MEDS: FUROSEMIDE 20 MG/2 ML VIAL IV PUSH SCH ×2 (08:54→18:56)
--- NOTE | 2017-01-17 09:12 | PD.CONS ---
History of Present Illness Service Infectious disease Consult Requested By Migel Turner Reason for Consult Evaluate patient with cellulitis, and PNA Primary Care Physician No Primary Care Physician Diagnoses: History of Present Illness Patient seen and examined. Records reviewed. Patient is a 51-year-old male, presented to the hospital complaining of worsening bilateral lower extremity edema and pain. Patient was recently hospitalized December 27 2 January 09 and at that time he was diagnosed to have CHF. He had evidence of dilated right ventricle, with pulmonary hypertension, low EF , as well as a thrombus in his left ventricle. Cardiac catheterization at that time did not reveal any coronary artery disease. Patient also at that time was seen by pulmonary for his COPD, and his chest x-ray then had shown atelectasis and small effusion on the right side. He also had bilateral lower extremity swelling. Patient was apparently home only for several hours when he started having increasing swelling and pain. Patient also had some shortness of breath. He denies any significant congestion or cough. No chest pain. He has orthopnea, and dyspnea on exertion. Since admission this time patient has not been febrile. His white count was initially elevated and its down to normal. Patient had elevated liver function tests, and imaging studies showed evidence of ascites, and there was an incidental finding of a right renal mass. Paracenteses. Urology and oncology has seen the patient for the right renal mass. He was also diagnosed to have cellulitis in his left lower extremity, and there was no evidence of DVT on ultrasound. Been on IV antibiotics. Patient states that his breathing is better. His abdominal distention is better. Infectious disease consultation has been requested to evaluate the patient. Review of Systems Constitutional: COMPLAINS OF: Weight gain, DENIES: Fatigue, Fever, Chills Eyes: DENIES: Eye pain Ears, nose, mouth, throat: DENIES: Nasal discharge, Oral lesions, Throat pain, Running Nose, Sinus Pain, Odynophagia Respiratory: COMPLAINS OF: Shortness of breath, DENIES: Cough, Sputum production Cardiovascular: COMPLAINS OF: Dyspnea on Exertion, Lower Extremity Edema, Orthopnea, DENIES: Chest pain, Palpitations, Syncope Gastrointestinal: DENIES: Abdominal pain, Diarrhea, Nausea, Vomiting, Difficulty Swallowing Genitourinary: DENIES: Urgency, Hematuria, Dysuria Musculoskeletal: COMPLAINS OF: Joint Swelling Integumentary: DENIES: Rash Hematologic/lymphatic: DENIES: Lymphadenopathy Immunologic/allergic: DENIES: Urticaria Neurologic: DENIES: Headache, Localized weakness Psychiatric: DENIES: Confusion, Hallucinations Past Family Social History Allergies: Coded Allergies: Ibuprofen (Verified Allergy, Severe, Nausea/Vomiting, 01/10/17) Levaquin (Verified Allergy, Mild, EDEMA, 01/10/17) Ultram (Verified Allergy, Mild, ITCHING, 01/10/17) Past Medical History Hypertension COPD Fibromyalgia GERD CHF (Echo 12/28/16 w/ EF 20%), nonischemic, 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 Past Surgical History Left knee surgery Active Ordered Medications Tylenol [place] Albuterol Dulcolax Coreg Lasix Neurontin Heparin Lactulose Morphine Zofran Zosyn MiraLAX Vancomycin Coumadin Social History Ex smoker, used to smoke >1 ppd, quit about 6 months ago Denies alcohol abuse, used to drink, stopped about 4 years ago Denies illicit drug Physical Exam Vital Signs Vital Signs Date Time Temp Pulse Resp B/P Pulse Ox O2 Delivery O2 Flow Rate FiO2 01/17/17 04:00 97.7 78 16 100/62 95 01/17/17 00:00 97.5 89 18 108/73 95 01/16/17 20:26 Room Air 01/16/17 20:00 98.3 93 18 133/67 99 01/16/17 19:12 92 01/16/17 16:00 98.2 88 17 116/68 95 01/16/17 13:30 20 01/16/17 11:00 97.5 92 17 108/70 98 01/16/17 10:40 20 Physical Exam GENERAL: Patient is a well-nourished, well-developed CM, awake and alert, not in respiratory distress at the time I examined.. SKIN: Warm and dry. No generalized rash, no ecchymoses and no evidence of embolic lesions. HEAD: Atraumatic. Normocephalic. No temporal wasting, or tenderness. EYES: [place] conjunctiva. No petechia or hemorrhage. Pupils equal, round and reactive to light. Extraocular movements full and intact. No scleral icterus. No injection or drainage. EARS, NOSE AND THROAT: Nose without bleeding or purulent nasal discharge. No sinus tenderness. Mucous membranes pink and moist. No oral lesions noted. No exudate. No oral thrush. NECK: Trachea midline. Supple and not tender, no meningeal signs CARDIOVASCULAR: Regular rate and rhythm. No murmurs, rubs or gallops heard RESPIRATORY: Clear to auscultation, decreased at the right base. Has decreased vocal fremitus. Breath sounds equal bilaterally. No rales, wheezing or rhonchi ABDOMEN: Soft, slightly globular, non-tender, nondistended. Bowel sounds present and normoactive. No guarding. No rebound. No organomegaly. EXTREMITIES: No clubbing, cyanosis. Has edema BLE, with mild erythema in distal L leg, with small superifical ulcers scattered. No crepitus. Has good ROM. No calf tenderness. Well perfused and warm. NEUROLOGICAL: Awake and alert. Cranial nerves grossly intact. Motor grossly within normal limits. PSYCHIATRIC: Normal affect, calm and cooperative. LINE: No evidence of infection Laboratory Laboratory Tests Test 01/16/17 01/17/17 01/17/17 09:30 03:27 06:47 Sodium Level 135 139 Potassium Level 4.0 3.9 Chloride Level 96 100 Carbon Dioxide Level 34.5 33.3 Anion Gap 5 6 Blood Urea Nitrogen 23 20 Creatinine 0.99 0.84 Estimat Glomerular Filtration 79 96 Rate Random Glucose 119 108 Calcium Level 8.1 8.4 Vancomycin Level Trough 18.5 White Blood Count 10.9 Red Blood Count 4.09 Hemoglobin 10.3 Hematocrit 33.6 Mean Corpuscular Volume 82.2 Mean Corpuscular Hemoglobin 25.3 Mean Corpuscular Hemoglobin 30.8 Concent Red Cell Distribution Width 15.9 Platelet Count 243 Mean Platelet Volume 9.1 Neutrophils (%) (Auto) 57.4 Lymphocytes (%) (Auto) 24.9 Monocytes (%) (Auto) 8.8 Eosinophils (%) (Auto) 7.7 Basophils (%) (Auto) 1.2 Neutrophils # (Auto) 6.2 Lymphocytes # (Auto) 2.7 Monocytes # (Auto) 1.0 Eosinophils # (Auto) 0.8 Basophils # (Auto) 0.1 CBC Comment DIFF FINAL Differential Comment Prothrombin Time 12.2 Prothromb Time International 1.1 Ratio Activated Partial 100.4 Thromboplast Time Total Bilirubin 0.4 Aspartate Amino Transf 28 (AST/SGOT) Alanine Aminotransferase 76 (ALT/SGPT) Alkaline Phosphatase 84 Total Protein 6.0 Albumin 2.3 Date/Time Procedure Status Source Growth 01/15/17 01:45 Aerobic Blood Culture - Preliminary Resulted Blood Peripheral NO GROWTH IN 1 DAY 01/15/17 01:45 Anaerobic Blood Culture - Preliminary Resulted Blood Peripheral NO GROWTH IN 1 DAY 01/14/17 15:43 Gram Stain - Final Complete Fluid Peritoneal Fluid 01/14/17 15:43 Body Fluid Culture - Final Complete Fluid Peritoneal Fluid NO GROWTH IN 72 HRS.--AEROBICALLY OR ... 01/13/17 08:35 Stool Occult Blood (KEERTHI) - Final Complete Stool Stool HEMOCCULT NEGATIVE Result Diagram: 01/17/17 0647 01/17/17 0647 Imaging RADIOLOGY STUDIES/FILMS REVIEWED Abdomen MRI 01/16/17 0000 Signed Impressions: Service Date/Time: Monday, January 16, 2017 10:37 - CONCLUSION: 1. Heterogeneous solid right renal mass centered in the mid pole again seen. No enlarged lymph nodes identified. 2. Ascites and right pleural effusion again noted. 3. Nonspecific diffuse wall thickening of nondistended bladder may be due to hypoalbuminemia. Jose J Emery MD Lower Extremity Ultrasound 01/15/17 0000 Signed Impressions: Service Date/Time: Sunday, January 15, 2017 09:50 - CONCLUSION: 1. No evidence of deep venous thrombosis. Andrew Dennis MD Foot MRI 01/15/17 0000 Signed Impressions: Service Date/Time: Sunday, January 15, 2017 11:08 - CONCLUSION: 1. Cellulitis without evidence of osteomyelitis Andrew Dennis MD Upper Extremity Ultrasound 01/11/17 0000 Signed Impressions: Service Date/Time: Wednesday, January 11, 2017 09:38 - CONCLUSION: 1. Thrombosis of the cephalic vein. The remainder of the venous system of the right upper extremity is widely patent. Josh Cadet MD Abdomen/Pelvis CT 01/11/17 0000 Signed Impressions: Service Date/Time: Wednesday, January 11, 2017 18:34 - CONCLUSION: 1. Large amount of abdominal ascites. 2. Solid mass right mid kidney concerning for renal cell carcinoma. 3. Small right pleural effusion. 4. Anasarca. Mariano Oakley MD Abdomen Ultrasound 01/11/17 0000 Signed Impressions: Service Date/Time: Wednesday, January 11, 2017 14:15 - CONCLUSION: There is no significant ascites evident. Dru Cadet MD FACR Chest X-Ray 01/10/17 0000 Signed Impressions: Service Date/Time: Tuesday, January 10, 2017 03:18 - CONCLUSION: 1. Small to moderate right-sided pleural effusion. 2. Right lower lung infiltrate 3. Pulmonary venous congestion. August Elmore MD Assessment and Plan Assessment and Plan IMPRESSION Cellulitis LLE, mild Biventricular heart failure, has known LV thrombus COPD with cor pulmonale - clinically no evidence of PNA Abnormal LFT likely due to R sided failure, hepatic congestion better R renal mass RECOMMENDATION Stop IV Abx Give 7 days keflex Edema control - Rx CHF, plus leg elevation and BRANDON stocking - Explained use of stockings and leg elevation to patient He is clinically stable from ID standpoint Thank you for this consultation Discussed Condition With Explained plan to the patient and answered all his questions Elicia Tello MD January 17, 2017 09:12
[2017-01-17] MEDS: HEPARIN-D5W INJ 250 ML IV SCH (09:14)
[2017-01-17] MEDS: CEPHALEXIN MONOHYDRATE 500 MG CAP PO SCH ×2 (11:00→20:56)
[2017-01-17 11:59] LABS: APTT (PATIENT) 63.3 SEC (24.3-30.1)
[2017-01-17 12:00] VITALS: BP 104/73; PULSE 77; RESP 18; TEMP 98.3; O2SAT 95
--- NOTE | 2017-01-17 13:57 | HHI.GIFU ---
Subjective Remarks Pt reports feeling OK. No complaints. He is trying to avoid salt in diet. He is on fluid restriction but not salt restriction. I will stop fluid restriction and place 2gm sodium restriction. Objective Vitals I&O Vital Signs Date Time Temp Pulse Resp B/P Pulse Ox O2 Delivery O2 Flow Rate FiO2 01/17/17 12:00 98.3 77 18 104/73 95 01/17/17 08:00 98.2 85 19 120/60 93 01/17/17 04:00 97.7 78 16 100/62 95 01/17/17 00:00 97.5 89 18 108/73 95 01/16/17 20:26 Room Air 01/16/17 20:00 98.3 93 18 133/67 99 01/16/17 19:12 92 01/16/17 16:00 98.2 88 17 116/68 95 I/O 01/16/17 01/16/17 01/16/17 01/17/17 01/17/17 01/17/17 07:00 15:00 23:00 07:00 15:00 23:00 Intake Total 100 ml 1200 ml 100 ml 240 ml Output Total 275 ml 2900 ml 600 ml 400 ml Balance -175 ml -1700 ml -500 ml -160 ml Intake Oral 100 ml 1200 ml 100 ml 240 ml Output Urine Total 275 ml 2900 ml 600 ml 400 ml # Voids 2 # Bowel Movements 0 0 0 0 Laboratory Laboratory Tests Test 01/17/17 01/17/17 01/17/17 03:27 06:47 11:00 Vancomycin Level Trough 18.5 White Blood Count 10.9 Red Blood Count 4.09 Hemoglobin 10.3 Hematocrit 33.6 Mean Corpuscular Volume 82.2 Mean Corpuscular Hemoglobin 25.3 Mean Corpuscular Hemoglobin 30.8 Concent Red Cell Distribution Width 15.9 Platelet Count 243 Mean Platelet Volume 9.1 Neutrophils (%) (Auto) 57.4 Lymphocytes (%) (Auto) 24.9 Monocytes (%) (Auto) 8.8 Eosinophils (%) (Auto) 7.7 Basophils (%) (Auto) 1.2 Neutrophils # (Auto) 6.2 Lymphocytes # (Auto) 2.7 Monocytes # (Auto) 1.0 Eosinophils # (Auto) 0.8 Basophils # (Auto) 0.1 CBC Comment DIFF FINAL Differential Comment Prothrombin Time 12.2 Prothromb Time International 1.1 Ratio Activated Partial 100.4 63.3 Thromboplast Time Sodium Level 139 Potassium Level 3.9 Chloride Level 100 Carbon Dioxide Level 33.3 Anion Gap 6 Blood Urea Nitrogen 20 Creatinine 0.84 Estimat Glomerular Filtration 96 Rate Random Glucose 108 Calcium Level 8.4 Total Bilirubin 0.4 Aspartate Amino Transf 28 (AST/SGOT) Alanine Aminotransferase 76 (ALT/SGPT) Alkaline Phosphatase 84 Total Protein 6.0 Albumin 2.3 Date/Time Procedure Status Source Growth 01/15/17 01:45 Aerobic Blood Culture - Preliminary Resulted Blood Peripheral NO GROWTH IN 2 DAYS 01/15/17 01:45 Anaerobic Blood Culture - Preliminary Resulted Blood Peripheral NO GROWTH IN 2 DAYS 01/14/17 15:43 Gram Stain - Final Complete Fluid Peritoneal Fluid 01/14/17 15:43 Body Fluid Culture - Final Complete Fluid Peritoneal Fluid NO GROWTH IN 72 HRS.--AEROBICALLY OR ... 01/13/17 08:35 Stool Occult Blood (KEERTHI) - Final Complete Stool Stool HEMOCCULT NEGATIVE Physical Exam HEENT: Normocephalic; atraumatic; no jaundice. CHEST: CTA, diminished CARDIAC: RRR. ABDOMEN: Soft, distended, mild LUQ TTP; no hepatosplenomegaly; bowel sounds are present in all four quadrants. Ascites EXTREMITIES: severe BLE edema, redness, weeping. SKIN: Normal; no rash; no jaundice. CUT OFF TENDER GLASS: No focal deficits; alert and oriented times three. Assessment and Plan Plan ASSESMENT: - Abdominal pain. Abdomen/Pelvis CT (01/11/17)------> 1. Large amount of abdominal ascites. 2. Solid mass right mid kidney concerning for renal cell carcinoma. 3. Small right pleural effusion. 4. Anasarca. Abdomen Ultrasound (01/11/17)-----> There is no significant ascites evident. Pt had multiple bowel movements. Still with right sided abdominal pain. Does have elevated LFTs which have been trending down, although bilirubin normal. T. Bili 0.3, AST 58, ALT 129, Alk Phosph 132. Pt on coumadin for left ventricular thrombus, thrombosis of the cephalic vein, so would not recommend taking off anticoagulation for endoscopic evaluation. IMPROVED. - Abdominal distention, likely multifactorial secondary to both ascites and constipation. Improved. Still appears to have significant ascites on exam. Last US with no significant ascites evident. Improved. - Constipation. Miralax. Multiple BMs. - Leukocytosis. WBC 12.3. Afebrile. Vanco, Zosyn. - Elevated LFTs. No biliary obstruction on CT or US. ? congestive hepatopathy. Liver workup to r/o underlying liver disease- Hepatitis panel negative, GLORIA neg, AMA pending, ASMA neg, Ceruloplasmin pending, Alpha 1 antitrypsin 211, AFP 5.6. Ferritin 85, Iron saturation 4.9%. - Hyperammonemia. Lactulose - Anemia. Mild. 11.2/36.0. No active gi bleeding. - CHF, Lasix per primary - Right kidney mass, concerning for RCC. Oncology following - Left Ventricular Thrombus, Thrombosis of the cephalic vein. Hematology consulted. - COPD/PNA, TRAM with electrolyte abnormalities. per primary. 01/16/17 Elevated LFTs- Improving, likely to congestive hepatopathy so far liver work up negative, some still pending 01/17 LFTs now normal. PLAN: - Low sodium diet but no fluid restriction. - Cont. PPI - LFTs now normal - Diuretics per primary - Hematology/oncology following -GI will sign off now. Dejan Kelly MD January 17, 2017 13:56
[2017-01-17 16:00] VITALS: BP 122/58; PULSE 88; RESP 19; TEMP 97.7; O2SAT 96
[2017-01-17 17:24] LABS: APTT (PATIENT) 67.7 SEC (24.3-30.1)
[2017-01-17] MEDS: WARFARIN SOD 5 MG TAB PO SCH (17:29)
[2017-01-17 20:00] VITALS: BP 122/68; PULSE 94; RESP 18; TEMP 98; O2SAT 96
--- NOTE | 2017-01-17 23:11 | HHI.PR ---
Subjective Remarks deferred entry - patient seen earlier at 7 pm Patient states pain is much improved denies fevers or chills has been ambulating Objective Vitals Vital Signs Date Time Temp Pulse Resp B/P Pulse Ox O2 Delivery O2 Flow Rate FiO2 01/17/17 16:00 97.7 88 19 122/58 96 01/17/17 12:00 98.3 77 18 104/73 95 01/17/17 08:00 98.2 85 19 120/60 93 01/17/17 04:00 97.7 78 16 100/62 95 01/17/17 00:00 97.5 89 18 108/73 95 I/O 01/16/17 01/16/17 01/16/17 01/17/17 01/17/17 01/17/17 07:00 15:00 23:00 07:00 15:00 23:00 Intake Total 100 ml 1200 ml 100 ml 240 ml 1120 ml Output Total 275 ml 2900 ml 600 ml 400 ml Balance -175 ml -1700 ml -500 ml -160 ml 1120 ml Intake Oral 100 ml 1200 ml 100 ml 240 ml 920 ml IV Total 200 ml Output Urine Total 275 ml 2900 ml 600 ml 400 ml # Voids 2 5 # Bowel Movements 0 0 0 0 1 Result Diagram: 01/17/17 0647 01/17/17 0647 Imaging Last Impressions Abdomen MRI 01/16/17 0000 Signed Impressions: Service Date/Time: Monday, January 16, 2017 10:37 - CONCLUSION: 1. Heterogeneous solid right renal mass centered in the mid pole again seen. No enlarged lymph nodes identified. 2. Ascites and right pleural effusion again noted. 3. Nonspecific diffuse wall thickening of nondistended bladder may be due to hypoalbuminemia. Jose J Emery MD Lower Extremity Ultrasound 01/15/17 0000 Signed Impressions: Service Date/Time: Sunday, January 15, 2017 09:50 - CONCLUSION: 1. No evidence of deep venous thrombosis. Andrew Dennis MD Foot MRI 01/15/17 0000 Signed Impressions: Service Date/Time: Sunday, January 15, 2017 11:08 - CONCLUSION: 1. Cellulitis without evidence of osteomyelitis Andrew Dennis MD Upper Extremity Ultrasound 01/11/17 0000 Signed Impressions: Service Date/Time: Wednesday, January 11, 2017 09:38 - CONCLUSION: 1. Thrombosis of the cephalic vein. The remainder of the venous system of the right upper extremity is widely patent. Josh Cadet MD Abdomen/Pelvis CT 01/11/17 0000 Signed Impressions: Service Date/Time: Wednesday, January 11, 2017 18:34 - CONCLUSION: 1. Large amount of abdominal ascites. 2. Solid mass right mid kidney concerning for renal cell carcinoma. 3. Small right pleural effusion. 4. Anasarca. Mariano Oakley MD Abdomen Ultrasound 01/11/17 0000 Signed Impressions: Service Date/Time: Wednesday, January 11, 2017 14:15 - CONCLUSION: There is no significant ascites evident. Dru Cadet MD FACR Chest X-Ray 01/10/17 0000 Signed Impressions: Service Date/Time: Tuesday, January 10, 2017 03:18 - CONCLUSION: 1. Small to moderate right-sided pleural effusion. 2. Right lower lung infiltrate 3. Pulmonary venous congestion. August Elmore MD Objective Remarks GENERAL: Well-developed well-nourished. In no acute distress. SKIN: Warm and dry. RUE with palpable and tender superficial veins. HEENT: Normocephalic. Pupils equal and round. Mucous membranes pink and moist. JVD. CARDIOVASCULAR: Regular rate and rhythm. No murmur appreciated. RESPIRATORY: No accessory muscle use. Crackles at the bases. GASTROINTESTINAL: Abdomen soft, non-tender, distended. Bowel sounds x4. MUSCULOSKELETAL: No obvious deformities. No clubbing or cyanosis. +2 edema on the right foot and 2+ edema on the left associated with erythema and tenderness on palpation. Thigh is bigger when compared to the right. There is some tenderness and swelling as well as erythema in the first metatarsophalangeal joint. Erythema of left lower extremity seems to be slightly improved from previous day. NEUROLOGICAL: Awake and alert. No focal neurological deficits. Moves upper and lower extremities spontaneously. Normal speech. PSYCHIATRIC: Awake and alert. Procedures sp Abdominal paracentesis 01/14/17 Medications and IVs Current Medications Medications (Trade) Dose Ordered Sig/Vishal Route Start Time Stop Time Status Last Admin (Lasix Inj) 20 mg BID@,18 IV PUSH 01/10/17 09:00 01/17/17 18:56 (NS Flush) 2 ml UNSCH PRN IV FLUSH 01/10/17 04:45 (NS Flush) 2 ml BID IV FLUSH 01/10/17 09:00 01/17/17 20:56 (Zofran Inj) 4 mg Q6H PRN IVP 01/10/17 04:45 01/11/17 04:15 (Dulcolax Supp) 10 mg DAILY PRN RECTAL 01/10/17 04:45 (Tylenol) 650 mg Q6H PRN PO 01/10/17 04:45 (Neurontin) 900 mg TID PO 01/10/17 09:00 01/17/17 18:57 ([place]leming 10-325 Mg) 1 tab Q6H PRN PO 01/11/17 07:43 01/17/17 17:27 (Coreg) 3.125 mg Q12HR PO 01/11/17 09:00 01/17/17 20:56 (Miralax) 17 gm BID PO 01/11/17 11:30 01/17/17 08:52 Lactulose 30 ml 30 ml DAILY PO 01/12/17 12:15 01/17/17 08:52 (Heparin-D5W Inj) 250 ml @ 0 mls/hr TITRATE IV 01/13/17 02:00 01/17/17 09:14 (Morphine Inj) 2 mg Q3H PRN IV PUSH 01/15/17 12:30 01/17/17 20:56 Warfarin Sodium 5 mg 5 mg DAILY@1600 PO 01/16/17 17:30 01/17/17 17:29 (Coumadin Consult Pharmacy) 0 ml @ 0 mls/hr UNSCH OTHER 01/16/17 17:30 (Keflex) 500 mg Q8H PO 01/17/17 11:00 01/24/17 10:59 01/17/17 20:56 A/P Problem List: (1) CHF (congestive heart failure) ICD Code: I50.9 Status: Resolved (2) COPD (chronic obstructive pulmonary disease) ICD Code: J44.9 Status: Chronic (3) PNA (pneumonia) ICD Code: J18.9 Status: Acute (4) TRAM (acute kidney injury) ICD Code: N17.9 Status: Resolved (5) Hyperkalemia ICD Code: E87.5 Status: Resolved (6) Right kidney mass ICD Code: N28.89 Status: Acute (7) Hypokalemia ICD Code: E87.6 Status: Resolved (8) Left ventricular thrombosis without SC ICD Code: I51.3 Status: Acute Assessment and Plan 51-year-old male with a PMH of HTN, COPD, Fibromyalgia, GERD, CHF (Echo 12/28/16 w / EF 20%) who presented w/ complaints of bilateral lower extremity edema and increasing pain Sepsis Present on admission patient with leukocytosis and tachycardia with heart rate 100. Sepsis likely secondary to pneumonia and left lower extremity cellulitis. Continue IV Zosyn and IV vancomycin. WBC seems to be trending down, down to 12.3 from 8.6. 01/17 sepsis resolved. Leukocytosis resolved. Continue antibiotics as per ID. IV antibiotics discontinued. Patient started on po keflex. CHF Acute on chronic systolic CHF. Echo 12/28/16 w/ EF 20%. S/p eval by cardiology on recent admit 12/27-01/09/17 for CHF, pleural effusion s/p thoracentesis and PNA. Presented with chance of breath and edema. CXR w/ small to moderate right -sided pleural effusion and pulmonary venous congestion. - 20 mg IV Lasix BID. - Monitor I/Os. - Started carvedilol. - BRANDON hose for edema. Renal mass/renal cell carcinoma Noted on US and CT. Concerning for renal cell carcinoma. Pt says he knew he had a renal mass but failed to follow up on it. Oncology consult appreciated. - IR consult for renal biopsy. - vitamin K given. - Coumadin changed to heparin gtt. Discussed the case with Dr. Cadet over the phone, he suggests obtaining a urology consultation to obtain a most definitive treatment. Biopsy could be done at the time of definitive treatment. 01/16 urology consulted. Appreciate recommendations. MRI of the abdomen requested. Showed heterogeneous solid right renal mass centered in the mid pole. No enlarged lymph nodes. Ascites and right pleural effusion. As per urology recommendations nephrectomy will have to be pursued after the patient is taken off of anticoagulation most likely as an outpatient. Hospital-acquired pneumonia CXR w/ RLL infiltrate. Afebrile, WBC 13. Productive cough. Recently hospitalized. - Continue IV Abx. Continue IV vancomycin and IV Zosyn for possible HCAP. - oxygen and DuoNebs prn. 01/16 repeat chest x-ray in a.m. TRAM Resolved after IV fluid administration. Continue to monitor BUN/creatinine and Mr. I's and O's. Avoid nephrotoxins Left Ventricular Thrombus Seen on recent echocardiogram. 01/16 I will continue heparin drip and resume Coumadin for an INR goal of 2-3. Abdominal pain and distention Positive fluid wave. Elevated LFTs, new finding. Ultrasound and CT with ascites. Albumin 3. Hepatitis panel negative. Gastroenterology consult appreciated. - follow up with GI. - trend LFTs. - ammonia level elevated. Started lactulose - monitor ammonia level. - sp abdominal paracentesis. Peritoneal fluid analysis does not look infectious. Has 397 WBCs, with 868 RBCs. Thrombosis of the cephalic vein Noted on US. Continue Heparin drip, continue bridge to Coumadin - subtherapeutic inr of 1.1. Pharmacy helping with dosing. Hyperkalemia resolved after treatment with Kayexalate. Hypokalemia Potassium replaced. Potassium level now 4.0. Continue to monitor BMP. Scrotal edema Due to Anasarca - continue with diuresis. Seems to be slowly improving LLE Cellulitis - Continue IV Vancomycin and IV Zosyn - 01/15 MRI of the left lower extremity shows cellulitis without evidence of osteomyelitis. Left lotion with Doppler ultrasound ruled out DVT. Will consult infectious disease to help with antibiotic management. 01/17 appreciate ID recommendations - IV antibiotics discontinued - On Keflex. Acute gouty attack - right foot has tender inflamed first metatarsophalangeal joint, concurrent with gout. 01/16 patient status post treatment with oral colchicine. Uric acid 6.0. 01/17 Acuet gouty attack resolving. DVT Prophylaxis: On heparin gtt. Discharge Planning Continue to monitor on the medical floor. Patient cannot be discharged until INR above 2. Problem Qualifiers (1) CHF (congestive heart failure): Qualified Code: I50.23 - Acute on chronic systolic congestive heart failure (2) COPD (chronic obstructive pulmonary disease): Qualified Code: J43.9 - Pulmonary emphysema, unspecified emphysema type Josh Ogden MD January 17, 2017 23:10
[2017-01-17 23:21] LABS: APTT (PATIENT) 69.2 SEC (24.3-30.1)
[2017-01-18] VITALS (7 sets, daily range): BP systolic 107–128; BP diastolic 54–77; PULSE 85–99; RESP 17–20; TEMP 97.4–98.1; O2SAT 95–100
[2017-01-18] MEDS: HEPARIN-D5W INJ 250 ML IV SCH ×2 (00:23→17:17)
[2017-01-18 01:01] LABS: MITOCHONDRIAL ABS LESS THAN 20.0 U (())
[2017-01-18] MEDS: CEPHALEXIN MONOHYDRATE 500 MG CAP PO SCH ×3 (03:00→18:13)
[2017-01-18] MEDS: ACETAMINOPHEN/HYDROcodone 325 MG/10 MG TAB PO PRN ×3 (05:09→18:13)
[2017-01-18 07:54] LABS: HEMATOCRIT 35.4 % (39.0-51.0); MEAN CELL VOLUME 82.5 FL (80.0-100.0); MEAN CORPUSCULAR HEMOGLOBIN 25.7 PG (27.0-34.0); MEAN CORPUSCULAR HGB CONC 31.2 % (32.0-36.0); PLATELET COUNT 253 TH/MM3 (150-450); RED CELL DISTRIBUTION WIDTH 15.7 % (11.6-17.2); REVIEW FLAG FINAL; WHITE BLOOD COUNT 10.4 TH/MM3 (4.0-11.0)
[2017-01-18 08:04] LABS: APTT (PATIENT) 75.8 SEC (24.3-30.1); INTERNATIONAL NORMALIZED RATIO 1.1 RATIO
[2017-01-18 08:14] LABS: BICARBONATE 33.6 MEQ/L (21.0-32.0); POTASSIUM 4.4 MEQ/L (3.5-5.1)
[2017-01-18] MEDS: POLYETHYLENE GLYCOL 17 GM PKG PO SCH ×2 (09:00→20:20)
[2017-01-18] MEDS: LACTULOSE SYRUP 20 GM/30 ML CUP PO SCH (10:22)
[2017-01-18] MEDS: CARVEDILOL 3.125 MG TAB PO SCH ×2 (10:23→20:21)
[2017-01-18] MEDS: FUROSEMIDE 20 MG/2 ML VIAL IV PUSH SCH ×2 (10:23→18:13)
[2017-01-18] MEDS: GABAPENTIN 300 MG CAP PO SCH ×3 (10:24→18:13)
[2017-01-18] MEDS: MORPHINE SULFATE 4 MG/ML INJ IV PUSH PRN ×3 (10:24→20:21)
[2017-01-18] MEDS: SODIUM CHLORIDE 0.9% FLUSH 10 ML FLUSH IV FLUSH SCH ×2 (10:24→20:20)
--- NOTE | 2017-01-18 11:49 | PD.ONC.PN ---
Subjective Subjective Remarks Afebrile overnight. Patient resting comfortably in chair next to bed. He states he has noticed fluid collection in his abdomen again. No difficulty breathing. Objective Data Date Time Temp Pulse Resp B/P Pulse Ox O2 Delivery O2 Flow Rate FiO2 01/18/17 08:00 97.8 85 20 113/63 97 01/18/17 05:24 99 01/18/17 04:00 97.7 86 18 107/67 98 01/18/17 00:00 98.1 85 20 128/54 97 01/17/17 20:00 98.0 94 18 122/68 96 01/17/17 16:00 97.7 88 19 122/58 96 01/17/17 12:00 98.3 77 18 104/73 95 01/18/17 01/18/17 01/18/17 06:59 14:59 22:59 Intake Total 480 ml Output Total 700 ml Balance -220 ml Result Diagram: 01/18/17 0710 01/18/17 0710 Laboratory Results Laboratory Tests Test 01/17/17 01/17/17 01/18/17 17:02 22:52 07:10 Activated Partial 67.7 SEC 69.2 SEC 75.8 SEC Thromboplast Time White Blood Count 10.4 TH/MM3 Red Blood Count 4.30 MIL/MM3 Hemoglobin 11.1 GM/DL Hematocrit 35.4 % Mean Corpuscular Volume 82.5 FL Mean Corpuscular Hemoglobin 25.7 PG Mean Corpuscular Hemoglobin 31.2 % Concent Red Cell Distribution Width 15.7 % Platelet Count 253 TH/MM3 Mean Platelet Volume 8.8 FL Prothrombin Time 12.0 SEC Prothromb Time International 1.1 RATIO Ratio Sodium Level 138 MEQ/L Potassium Level 4.4 MEQ/L Chloride Level 99 MEQ/L Carbon Dioxide Level 33.6 MEQ/L Anion Gap 5 MEQ/L Blood Urea Nitrogen 16 MG/DL Creatinine 0.86 MG/DL Estimat Glomerular Filtration 93 ML/MIN Rate Random Glucose 84 MG/DL Calcium Level 9.0 MG/DL Administered Medications Medications (Trade) Dose Ordered Sig/Vishal Route PRN Reason Start Time Stop Time Status Last Admin Dose Admin Furosemide (Lasix Inj) 20 mg BID@09,18 IV PUSH 01/10/17 09:00 01/18/17 10:23 Sodium Chloride (NS Flush) 2 ml BID IV FLUSH 01/10/17 09:00 01/18/17 10:24 Ondansetron HCl (Zofran Inj) 4 mg Q6H PRN IVP NAUSEA OR VOMITING 01/10/17 04:45 01/11/17 04:15 Gabapentin (Neurontin) 900 mg TID PO 01/10/17 09:00 01/18/17 10:24 Acetaminophen/ Hydrocodone Bitart ([place] 10-325 Mg) 1 tab Q6H PRN PO PAIN 3-10 01/11/17 07:43 01/18/17 05:09 Carvedilol (Coreg) 3.125 mg Q12HR PO 01/11/17 09:00 01/18/17 10:23 Polyethylene Glycol (Miralax) 17 gm BID PO 01/11/17 11:30 01/17/17 08:52 Lactulose 30 ml 30 ml DAILY PO 01/12/17 12:15 01/18/17 10:22 Heparin Sodium/ Dextrose (Heparin-D5W Inj) 250 ml @ 0 mls/hr TITRATE IV 01/13/17 02:00 01/18/17 00:23 Morphine Sulfate (Morphine Inj) 2 mg Q3H PRN IV PUSH BREAKTHROUGH PAIN 01/15/17 12:30 01/18/17 10:24 Warfarin Sodium (Coumadin) 5 mg DAILY@1600 PO 01/16/17 17:30 01/17/17 17:29 Cephalexin Monohydrate (Keflex) 500 mg Q8H PO 01/17/17 11:00 01/24/17 10:59 01/18/17 10:30 Objective Remarks GENERAL: Chronically ill appearing male, upright in chair SKIN: Warm and dry. HEAD: Normocephalic. EYES: No injection or drainage. NECK: Supple, trachea midline. CARDIOVASCULAR: Regular rate and rhythm RESPIRATORY: diminished at bases. occasional rhonchi GASTROINTESTINAL: Abdomen mildly distended. EXTREMITIES: No cyanosis NEUROLOGICAL: aox3. normal speech. moving all extremities. Assessment/Plan Problem List: (1) Right kidney mass Status: Acute Plan: -- Solid mass R mid kidney suspicious for renal cell carcinoma, awaiting biopsy -- CEA normal (2) Left ventricular thrombosis without KS Status: Acute Plan: --on heparin gtt to coumadin bridge Assessment 51 y/o male with history of CHF presents to the ER with persistent LE edema. Oncology consulted for renal mass suspicious for renal cell carcinoma. Plan 1. monitor CBC 2. await cytology Attending Statement The exam, history, and the medical decision-making described in the above note were completed with the assistance of the mid-level provider. I reviewed and agree with the findings presented. I attest that I had a [id number] encounter with the patient on the same day, and personally performed and documented my assessment and findings in the medical record. Awaiting results of cytology. Possibility of intraabdominal mets exists. MRI features consistent with RCC. Would need nephrectomy--defer to urology Further recs based on cytology. Belén Blanc January 18, 2017 11:49 Giancarlo Huang MD January 18, 2017 21:48
--- NOTE | 2017-01-18 12:56 | HHI.PR ---
Subjective Patient symptoms today Pt seen and examined. MRI of abdomen discussed with pt. c/o some abdominal fullness due to ascites. Objective Vital Signs Vital Signs Date Time Temp Pulse Resp B/P Pulse Ox O2 Delivery O2 Flow Rate FiO2 01/18/17 08:00 97.8 85 20 113/63 97 01/18/17 05:24 99 01/18/17 04:00 97.7 86 18 107/67 98 01/18/17 00:00 98.1 85 20 128/54 97 01/17/17 20:00 98.0 94 18 122/68 96 01/17/17 16:00 97.7 88 19 122/58 96 Intake & Output 01/18/17 01/18/17 07:00 19:00 Intake Total 480 ml Output Total 700 ml Balance -220 ml Intake Oral 480 ml Output Urine Total 700 ml # Bowel Movements 0 Result Diagram: 01/18/17 0710 01/18/17 07 Objective Remarks Abd:soft,fullness due to ascites noted; nt Medications and IVs Current Medications Medications (Trade) Dose Ordered Sig/Vishal Route Start Time Stop Time Status Last Admin (Lasix Inj) 20 mg BID@,18 IV PUSH 01/10/17 09:00 01/18/17 10:23 (NS Flush) 2 ml UNSCH PRN IV FLUSH 01/10/17 04:45 (NS Flush) 2 ml BID IV FLUSH 01/10/17 09:00 01/18/17 10:24 (Zofran Inj) 4 mg Q6H PRN IVP 01/10/17 04:45 01/11/17 04:15 (Dulcolax Supp) 10 mg DAILY PRN RECTAL 01/10/17 04:45 (Tylenol) 650 mg Q6H PRN PO 01/10/17 04:45 (Neurontin) 900 mg TID PO 01/10/17 09:00 01/18/17 12:32 ([place] 10-325 Mg) 1 tab Q6H PRN PO 01/11/17 07:43 01/18/17 11:47 (Coreg) 3.125 mg Q12HR PO 01/11/17 09:00 01/18/17 10:23 (Miralax) 17 gm BID PO 01/11/17 11:30 01/17/17 08:52 Lactulose 30 ml 30 ml DAILY PO 01/12/17 12:15 01/18/17 10:22 (Heparin-D5W Inj) 250 ml @ 0 mls/hr TITRATE IV 01/13/17 02:00 01/18/17 00:23 (Morphine Inj) 2 mg Q3H PRN IV PUSH 01/15/17 12:30 01/18/17 10:24 Warfarin Sodium 5 mg 5 mg DAILY@1600 PO 01/16/17 17:30 01/17/17 17:29 (Coumadin Consult Pharmacy) 0 ml @ 0 mls/hr UNSCH OTHER 01/16/17 17:30 (Keflex) 500 mg Q8H PO 01/17/17 11:00 01/24/17 10:59 01/18/17 10:30 (Coumadin) 2.5 mg ONCE@1600 ONCE PO 01/18/17 16:00 01/18/17 16:01 Assessment and Plan Assessment and Plan 51-year-old male with findings of a 5.8 x 4.5 x 4.8 cm right renal mass with elevated LFTs; suggestive of Kostas syndrome. Patient is on anticoagulation therapy for recent DVT and history of ventricular thrombus with underlying CHF an ejection fraction of 20%. Patient will need a MRI to evaluate the right renal mass as well as to rule out any evidence of renal vein thrombosis/caval thrombus Patient will need medical optimization and will need to be off anticoagulation therapy prior to proceeding with right radical nephrectomy. Location of tumor is too centralized to consider right partial nephrectomy. This possibility may be done as an outpatient in the future after anticoagulation can be discontinued and he is medically optimized. Thank you for the consult and allowing me to precipitate in the care of this patient.\\ 01/18 51-year-old male with findings of a 5.8 x 4.5 x 4.8 cm right renal mass with elevated LFTs; suggestive of Kostas syndrome. MRI of abdomen reviewed suggestive of RCC Will need right radical nephrectomy in future as outpt and once medically cleared and optimized. F/U as outpt. Nolan Sage DO January 18, 2017 12:56
[2017-01-18] MEDS ORDERED: WARFARIN SOD 2.5 MG TAB PO ONE (16:00)
[2017-01-18] MEDS: WARFARIN SOD 5 MG TAB PO SCH (16:33)
--- NOTE | 2017-01-18 17:57 | HHI.PR ---
Subjective Remarks fu renal cell carcinoma, fu cellulitis foot, acute gout, chf exacerbation, tram Patient denies fevers/chills denies cp/sob vital signs stable Objective Vitals Vital Signs Date Time Temp Pulse Resp B/P Pulse Ox O2 Delivery O2 Flow Rate FiO2 01/18/17 12:00 97.4 95 20 107/68 100 01/18/17 08:45 87 01/18/17 08:00 97.8 85 20 113/63 97 01/18/17 05:24 99 01/18/17 04:00 97.7 86 18 107/67 98 01/18/17 00:00 98.1 85 20 128/54 97 01/17/17 20:00 98.0 94 18 122/68 96 I/O 01/17/17 01/17/17 01/17/17 01/18/17 01/18/17 01/18/17 06:59 14:59 22:59 06:59 14:59 22:59 Intake Total 240 ml 1120 ml 480 ml Output Total 400 ml 700 ml Balance -160 ml 1120 ml -220 ml Intake Oral 240 ml 920 ml 480 ml IV Total 200 ml Output Urine Total 400 ml 700 ml # Voids 5 # Bowel Movements 0 1 0 Result Diagram: 01/18/17 0710 01/18/17 0710 Imaging Last Impressions Abdomen MRI 01/16/17 0000 Signed Impressions: Service Date/Time: Monday, January 16, 2017 10:37 - CONCLUSION: 1. Heterogeneous solid right renal mass centered in the mid pole again seen. No enlarged lymph nodes identified. 2. Ascites and right pleural effusion again noted. 3. Nonspecific diffuse wall thickening of nondistended bladder may be due to hypoalbuminemia. Jose J Emery MD Lower Extremity Ultrasound 01/15/17 0000 Signed Impressions: Service Date/Time: Sunday, January 15, 2017 09:50 - CONCLUSION: 1. No evidence of deep venous thrombosis. Andrew Dennis MD Foot MRI 01/15/17 0000 Signed Impressions: Service Date/Time: Sunday, January 15, 2017 11:08 - CONCLUSION: 1. Cellulitis without evidence of osteomyelitis Andrew Dennis MD Upper Extremity Ultrasound 01/11/17 0000 Signed Impressions: Service Date/Time: Wednesday, January 11, 2017 09:38 - CONCLUSION: 1. Thrombosis of the cephalic vein. The remainder of the venous system of the right upper extremity is widely patent. Josh Cadet MD Abdomen/Pelvis CT 01/11/17 0000 Signed Impressions: Service Date/Time: Wednesday, January 11, 2017 18:34 - CONCLUSION: 1. Large amount of abdominal ascites. 2. Solid mass right mid kidney concerning for renal cell carcinoma. 3. Small right pleural effusion. 4. Anasarca. Mariano Oakley MD Abdomen Ultrasound 01/11/17 0000 Signed Impressions: Service Date/Time: Wednesday, January 11, 2017 14:15 - CONCLUSION: There is no significant ascites evident. Dru Cadet MD FACR Chest X-Ray 01/10/17 0000 Signed Impressions: Service Date/Time: Tuesday, January 10, 2017 03:18 - CONCLUSION: 1. Small to moderate right-sided pleural effusion. 2. Right lower lung infiltrate 3. Pulmonary venous congestion. August Elmore MD Objective Remarks GENERAL: Well-developed well-nourished. In no acute distress. SKIN: Warm and dry. RUE with palpable and tender superficial veins. HEENT: Normocephalic. Pupils equal and round. Mucous membranes pink and moist. JVD. CARDIOVASCULAR: Regular rate and rhythm. No murmur appreciated. RESPIRATORY: No accessory muscle use. Crackles at the bases. GASTROINTESTINAL: Abdomen soft, non-tender, distended. Bowel sounds x4. MUSCULOSKELETAL: No obvious deformities. No clubbing or cyanosis. +2 edema on the right foot and 2+ edema on the left associated with erythema and tenderness on palpation. Thigh is bigger when compared to the right. There is some tenderness and swelling as well as erythema in the first metatarsophalangeal joint. Erythema of left lower extremity seems to be slightly improved from previous day. NEUROLOGICAL: Awake and alert. No focal neurological deficits. Moves upper and lower extremities spontaneously. Normal speech. PSYCHIATRIC: Awake and alert. Procedures sp Abdominal paracentesis 01/14/17 Medications and IVs Current Medications Medications (Trade) Dose Ordered Sig/Vishal Route Start Time Stop Time Status Last Admin (Lasix Inj) 20 mg BID@,18 IV PUSH 01/10/17 09:00 01/18/17 10:23 (NS Flush) 2 ml UNSCH PRN IV FLUSH 01/10/17 04:45 (NS Flush) 2 ml BID IV FLUSH 01/10/17 09:00 01/18/17 10:24 (Zofran Inj) 4 mg Q6H PRN IVP 01/10/17 04:45 01/11/17 04:15 (Dulcolax Supp) 10 mg DAILY PRN RECTAL 01/10/17 04:45 (Tylenol) 650 mg Q6H PRN PO 01/10/17 04:45 (Neurontin) 900 mg TID PO 01/10/17 09:00 01/18/17 12:32 ([place] 10-325 Mg) 1 tab Q6H PRN PO 01/11/17 07:43 01/18/17 11:47 (Coreg) 3.125 mg Q12HR PO 01/11/17 09:00 01/18/17 10:23 (Miralax) 17 gm BID PO 01/11/17 11:30 01/17/17 08:52 Lactulose 30 ml 30 ml DAILY PO 01/12/17 12:15 01/18/17 10:22 (Heparin-D5W Inj) 250 ml @ 0 mls/hr TITRATE IV 01/13/17 02:00 01/18/17 17:17 (Morphine Inj) 2 mg Q3H PRN IV PUSH 01/15/17 12:30 01/18/17 16:33 Warfarin Sodium 5 mg 5 mg DAILY@1600 PO 01/16/17 17:30 01/18/17 16:33 (Coumadin Consult Pharmacy) 0 ml @ 0 mls/hr UNSCH OTHER 01/16/17 17:30 (Keflex) 500 mg Q8H PO 01/17/17 11:00 01/24/17 10:59 01/18/17 10:30 Urinary Catheter: No Vascular Central Line Catheter: No A/P Problem List: (1) CHF (congestive heart failure) ICD Code: I50.9 Status: Resolved (2) COPD (chronic obstructive pulmonary disease) ICD Code: J44.9 Status: Chronic (3) PNA (pneumonia) ICD Code: J18.9 Status: Acute (4) TRAM (acute kidney injury) ICD Code: N17.9 Status: Resolved (5) Hyperkalemia ICD Code: E87.5 Status: Resolved (6) Right kidney mass ICD Code: N28.89 Status: Acute (7) Hypokalemia ICD Code: E87.6 Status: Resolved (8) Left ventricular thrombosis without AK ICD Code: I51.3 Status: Acute Assessment and Plan 51-year-old male with a PMH of HTN, COPD, Fibromyalgia, GERD, CHF (Echo 12/28/16 w / EF 20%) who presented w/ complaints of bilateral lower extremity edema and increasing pain Sepsis Present on admission patient with leukocytosis and tachycardia with heart rate 100. Sepsis likely secondary to pneumonia and left lower extremity cellulitis. Continue IV Zosyn and IV vancomycin. WBC seems to be trending down, down to 12.3 from 8.6. 01/17 sepsis resolved. Leukocytosis resolved. Continue antibiotics as per ID. IV antibiotics discontinued. Patient started on po keflex. CHF Acute on chronic systolic CHF. Echo 12/28/16 w/ EF 20%. S/p eval by cardiology on recent admit 12/27-01/09/17 for CHF, pleural effusion s/p thoracentesis and PNA. Presented with chance of breath and edema. CXR w/ small to moderate right -sided pleural effusion and pulmonary venous congestion. - 20 mg IV Lasix BID. - Monitor I/Os. - Started carvedilol. - BRANDON hose for edema. Renal mass/renal cell carcinoma Noted on US and CT. Concerning for renal cell carcinoma. Pt says he knew he had a renal mass but failed to follow up on it. Oncology consult appreciated. - IR consult for renal biopsy. - vitamin K given. - Coumadin changed to heparin gtt. Discussed the case with Dr. Cadet over the phone, he suggests obtaining a urology consultation to obtain a most definitive treatment. Biopsy could be done at the time of definitive treatment. 01/16 urology consulted. Appreciate recommendations. MRI of the abdomen requested. Showed heterogeneous solid right renal mass centered in the mid pole. No enlarged lymph nodes. Ascites and right pleural effusion. As per urology recommendations nephrectomy will have to be pursued after the patient is taken off of anticoagulation as an outpatient. Hospital-acquired pneumonia CXR w/ RLL infiltrate. Afebrile, WBC 13. Productive cough. Recently hospitalized. - Continue IV Abx. Continue IV vancomycin and IV Zosyn for possible HCAP. - oxygen and DuoNebs prn. TRAM Resolved after IV fluid administration. Continue to monitor BUN/creatinine and I's and O's. Avoid nephrotoxins Left Ventricular Thrombus Seen on recent echocardiogram. 01/16 I will continue heparin drip and resume Coumadin for an INR goal of 2-3. 01/18 INR 1.1. dosing as per pharmacy. Continue heparin gtt bridge to Coumadin. Abdominal pain and distention Positive fluid wave. Elevated LFTs, new finding. Ultrasound and CT with ascites. Albumin 3. Hepatitis panel negative. Gastroenterology consult appreciated. - follow up with GI. - trend LFTs. - ammonia level elevated. Started lactulose - monitor ammonia level. - sp abdominal paracentesis. Peritoneal fluid analysis does not look infectious. Has 397 WBCs, with 868 RBCs. Thrombosis of the cephalic vein Noted on US. Continue Heparin drip, continue bridge to Coumadin - subtherapeutic inr of 1.1. Pharmacy helping with dosing. Hyperkalemia resolved after treatment with Kayexalate. Hypokalemia Potassium replaced. Potassium level now 4.0. Continue to monitor BMP. Scrotal edema Due to Anasarca - continue with diuresis. Seems to be slowly improving LLE Cellulitis - Continue IV Vancomycin and IV Zosyn - 01/15 MRI of the left lower extremity shows cellulitis without evidence of osteomyelitis. Left lotion with Doppler ultrasound ruled out DVT. Will consult infectious disease to help with antibiotic management. 01/17 appreciate ID recommendations - IV antibiotics discontinued - On Keflex. Acute gouty attack - right foot has tender inflamed first metatarsophalangeal joint, concurrent with gout. 01/16 patient status post treatment with oral colchicine. Uric acid 6.0. 01/18 Resolved. will start patient on allopurinol. DVT Prophylaxis: On heparin gtt. Discharge Planning Continue to monitor on the medical floor. Patient cannot be discharged until INR above 2. Problem Qualifiers (1) CHF (congestive heart failure): Qualified Code: I50.23 - Acute on chronic systolic congestive heart failure (2) COPD (chronic obstructive pulmonary disease): Qualified Code: J43.9 - Pulmonary emphysema, unspecified emphysema type Josh Ogden MD January 18, 2017 17:57
[2017-01-18] MEDS: RESP: ALBUTEROL CONC 2.5 MG/0.5 ML NEB NEB PRN (20:05)
[2017-01-18 23:55] LABS: APTT (PATIENT) 46.8 SEC (24.3-30.1)
[2017-01-19] VITALS (9 sets, daily range): BP systolic 107–118; BP diastolic 63–80; PULSE 85–115; RESP 16–20; TEMP 96.9–98.4; O2SAT 93–98
[2017-01-19] MEDS: ACETAMINOPHEN/HYDROcodone 325 MG/10 MG TAB PO PRN ×4 (00:33→20:45)
[2017-01-19] MEDS: MORPHINE SULFATE 4 MG/ML INJ IV PUSH PRN ×3 (03:09→22:28)
[2017-01-19] MEDS: CEPHALEXIN MONOHYDRATE 500 MG CAP PO SCH ×3 (03:10→18:31)
[2017-01-19] MEDS: RESP: ALBUTEROL CONC 2.5 MG/0.5 ML NEB NEB PRN ×2 (05:01→20:55)
[2017-01-19] MEDS: CARVEDILOL 3.125 MG TAB PO SCH ×2 (08:02→20:45)
[2017-01-19] MEDS: SODIUM CHLORIDE 0.9% FLUSH 10 ML FLUSH IV FLUSH SCH ×2 (08:02→20:45)
[2017-01-19] MEDS: GABAPENTIN 300 MG CAP PO SCH ×3 (08:02→17:20)
[2017-01-19] MEDS: LACTULOSE SYRUP 20 GM/30 ML CUP PO SCH (08:02)
[2017-01-19] MEDS: POLYETHYLENE GLYCOL 17 GM PKG PO SCH ×2 (08:02→20:45)
[2017-01-19 08:32] LABS: HEMATOCRIT 36.1 % (39.0-51.0); MEAN CORPUSCULAR HEMOGLOBIN 25.5 PG (27.0-34.0); MEAN CORPUSCULAR HGB CONC 30.7 % (32.0-36.0); PLATELET COUNT 234 TH/MM3 (150-450); RED BLOOD COUNT 4.35 MIL/MM3 (4.50-5.90); RED CELL DISTRIBUTION WIDTH 16.2 % (11.6-17.2); REVIEW FLAG FINAL; WHITE BLOOD COUNT 10.7 TH/MM3 (4.0-11.0)
[2017-01-19 08:43] LABS: INTERNATIONAL NORMALIZED RATIO 1.1 RATIO; PROTHROMBIN TIME - PATIENT 12.1 SEC (9.8-11.6)
--- NOTE | 2017-01-19 11:21 | RADRPT ---
EXAM DATE/TIME: 01/14/2017 08:47 [facility] COMPARISON: No previous studies available for comparison. INDICATIONS : Ascites. MEDICAL HISTORY : Chronic obstructive pulmonary disease. Congestive heart failure. GERD. HTN. Asthma. Fibromyalgia. Ost eoporosis. Shingles. Depression. Anxiety. Migraines. Left kidney mass. SURGICAL HISTORY : Left knee surgery. ENCOUNTER: Subsequent ACUITY: 4 - 6 days PAIN SCORE: 0/10 LOCATION: Bilateral Abdomen. FLUID: Total volume of 4000 cc of clear, yellow fluid was removed. Fluid was sent to lab for ordered studies. Post procedure scanning reveals no hematoma or other complication. TECHNIQUE: 1. Ultrasound guidance for abdominal paracentesis. 2. Paracentesis. The risks, benefits, and alternatives to ultrasound guided paracentesis were explained to the patient in detail including the risk of bleeding and infection. Written and verbal informed consent was obt ained. With the patient on the ultrasound table, ultrasound imaging was used to select the most appropriate approach for paracentesis. Overlying skin was prepped and draped in the usual sterile fashion and wi th a local anesthetic, a dermatotomy was made with an 11 blade scalpel. A 6 [place] [employer] ca theter was introduced into the peritoneal cavity and fluid was collected. The patient tolerated the procedure well and left the ultrasound suite in stable condition. CONCLUSION: Uncomplicated ultrasound guided paracentesis. Andrew Dennis MD on January 19, 2017 at 11:20 Board Certified Radiologist. This report was verified electronically.
[2017-01-19] MEDS: HEPARIN-D5W INJ 250 ML IV SCH (11:54)
[2017-01-19] MEDS: FUROSEMIDE 20 MG/2 ML VIAL IV PUSH SCH ×2 (13:02→17:20)
--- NOTE | 2017-01-19 15:08 | HHI.PR ---
Subjective Remarks no major overnight events denies cp/sob afebrile still has edema in bl foot Objective Vitals Vital Signs Date Time Temp Pulse Resp B/P Pulse Ox O2 Delivery O2 Flow Rate FiO2 01/19/17 12:00 97.3 85 20 107/68 96 01/19/17 08:00 96.9 96 20 114/74 96 01/19/17 04:00 97.9 115 17 109/68 94 01/19/17 00:00 97.1 96 17 115/78 97 01/18/17 20:26 2 01/18/17 20:00 95 01/18/17 20:00 97.4 97 17 108/77 95 I/O 01/18/17 01/18/17 01/18/17 01/19/17 01/19/17 01/19/17 06:59 14:59 22:59 06:59 14:59 22:59 Intake Total 480 ml 88 ml 957 ml 1310 ml 900 ml Output Total 700 ml 1900 ml Balance -220 ml 88 ml 957 ml -590 ml 900 ml Intake Oral 480 ml 1200 ml 900 ml IV Total 88 ml 957 ml 110 ml Output Urine Total 700 ml 1900 ml # Voids 1 4 # Bowel Movements 0 Result Diagram: 01/19/17 0752 01/18/17 0710 Imaging Last Impressions Abdomen MRI 01/16/17 0000 Signed Impressions: Service Date/Time: Monday, January 16, 2017 10:37 - CONCLUSION: 1. Heterogeneous solid right renal mass centered in the mid pole again seen. No enlarged lymph nodes identified. 2. Ascites and right pleural effusion again noted. 3. Nonspecific diffuse wall thickening of nondistended bladder may be due to hypoalbuminemia. Jose J Emery MD Lower Extremity Ultrasound 01/15/17 0000 Signed Impressions: Service Date/Time: Sunday, January 15, 2017 09:50 - CONCLUSION: 1. No evidence of deep venous thrombosis. Andrew Dennis MD Foot MRI 01/15/17 0000 Signed Impressions: Service Date/Time: Sunday, January 15, 2017 11:08 - CONCLUSION: 1. Cellulitis without evidence of osteomyelitis Andrew Dennis MD Cyst Biopsy Asp-Paracentesis US 01/14/17 0600 Signed Impressions: Service Date/Time: December 08:47 - CONCLUSION: Uncomplicated ultrasound guided paracentesis. Andrew Dennis MD Upper Extremity Ultrasound 01/11/17 0000 Signed Impressions: Service Date/Time: Wednesday, January 11, 2017 09:38 - CONCLUSION: 1. Thrombosis of the cephalic vein. The remainder of the venous system of the right upper extremity is widely patent. Josh Cadet MD Abdomen/Pelvis CT 01/11/17 0000 Signed Impressions: Service Date/Time: Wednesday, January 11, 2017 18:34 - CONCLUSION: 1. Large amount of abdominal ascites. 2. Solid mass right mid kidney concerning for renal cell carcinoma. 3. Small right pleural effusion. 4. Anasarca. Mariano Oakley MD Abdomen Ultrasound 01/11/17 0000 Signed Impressions: Service Date/Time: Wednesday, January 11, 2017 14:15 - CONCLUSION: There is no significant ascites evident. Dru Cadet MD FACR Chest X-Ray 01/10/17 0000 Signed Impressions: Service Date/Time: Tuesday, January 10, 2017 03:18 - CONCLUSION: 1. Small to moderate right-sided pleural effusion. 2. Right lower lung infiltrate 3. Pulmonary venous congestion. August Elmore MD Objective Remarks GENERAL: Well-developed well-nourished. In no acute distress. SKIN: Warm and dry. RUE with palpable and tender superficial veins. HEENT: Normocephalic. Pupils equal and round. Mucous membranes pink and moist. JVD. CARDIOVASCULAR: Regular rate and rhythm. No murmur appreciated. RESPIRATORY: No accessory muscle use. Crackles at the bases. GASTROINTESTINAL: Abdomen soft, non-tender, distended. Bowel sounds x4. MUSCULOSKELETAL: No obvious deformities. No clubbing or cyanosis. +2 edema on the right foot and 2+ edema on the left associated with erythema and tenderness on palpation. Thigh is bigger when compared to the right. There is some tenderness and swelling as well as erythema in the first metatarsophalangeal joint. Erythema of left lower extremity seems to be slightly improved from previous day. NEUROLOGICAL: Awake and alert. No focal neurological deficits. Moves upper and lower extremities spontaneously. Normal speech. PSYCHIATRIC: Awake and alert. Procedures sp Abdominal paracentesis 01/14/17 Medications and IVs Current Medications Medications (Trade) Dose Ordered Sig/Vishal Route Start Time Stop Time Status Last Admin (Lasix Inj) 20 mg BID@09,18 IV PUSH 01/10/17 09:00 01/19/17 13:02 (NS Flush) 2 ml UNSCH PRN IV FLUSH 01/10/17 04:45 (NS Flush) 2 ml BID IV FLUSH 01/10/17 09:00 01/19/17 08:02 (Zofran Inj) 4 mg Q6H PRN IVP 01/10/17 04:45 01/11/17 04:15 (Dulcolax Supp) 10 mg DAILY PRN RECTAL 01/10/17 04:45 (Tylenol) 650 mg Q6H PRN PO 01/10/17 04:45 (Neurontin) 900 mg TID PO 01/10/17 09:00 01/19/17 11:57 ([place] 10-325 Mg) 1 tab Q6H PRN PO 01/11/17 07:43 01/19/17 11:54 (Coreg) 3.125 mg Q12HR PO 01/11/17 09:00 01/19/17 08:02 (Miralax) 17 gm BID PO 01/11/17 11:30 01/19/17 08:02 Lactulose 30 ml 30 ml DAILY PO 01/12/17 12:15 01/19/17 08:02 (Heparin-D5W Inj) 250 ml @ 0 mls/hr TITRATE IV 01/13/17 02:00 01/19/17 11:54 (Morphine Inj) 2 mg Q3H PRN IV PUSH 01/15/17 12:30 01/19/17 03:09 Warfarin Sodium 5 mg 5 mg DAILY@1600 PO 01/16/17 17:30 01/18/17 16:33 (Coumadin Consult Pharmacy) 0 ml @ 0 mls/hr UNSCH OTHER 01/16/17 17:30 (Keflex) 500 mg Q8H PO 01/17/17 11:00 01/24/17 10:59 01/19/17 11:55 (Coumadin) 5 mg ONCE@1600 ONCE PO 01/19/17 16:00 01/19/17 16:01 Urinary Catheter: No Vascular Central Line Catheter: No A/P Problem List: (1) CHF (congestive heart failure) ICD Code: I50.9 Status: Resolved (2) COPD (chronic obstructive pulmonary disease) ICD Code: J44.9 Status: Chronic (3) PNA (pneumonia) ICD Code: J18.9 Status: Resolved (4) TRAM (acute kidney injury) ICD Code: N17.9 Status: Resolved (5) Hyperkalemia ICD Code: E87.5 Status: Resolved (6) Right kidney mass ICD Code: N28.89 Status: Acute (7) Hypokalemia ICD Code: E87.6 Status: Resolved (8) Left ventricular thrombosis without [place] ICD Code: I51.3 Status: Acute Assessment and Plan 51-year-old male with a PMH of HTN, COPD, Fibromyalgia, GERD, CHF (Echo 12/28/16 w / EF 20%) who presented w/ complaints of bilateral lower extremity edema and increasing pain Sepsis Present on admission patient with leukocytosis and tachycardia with heart rate 100. Sepsis likely secondary to pneumonia and left lower extremity cellulitis. Continue IV Zosyn and IV vancomycin. WBC seems to be trending down, down to 12.3 from 8.6. 01/17 sepsis resolved. Leukocytosis resolved. Continue antibiotics as per ID. IV antibiotics discontinued. Patient started on po keflex. CHF Acute on chronic systolic CHF. Echo 12/28/16 w/ EF 20%. S/p eval by cardiology on recent admit 12/27-01/09/17 for CHF, pleural effusion s/p thoracentesis and PNA. Presented with chance of breath and edema. CXR w/ small to moderate right -sided pleural effusion and pulmonary venous congestion. - 20 mg IV Lasix BID. - Monitor I/Os. - Started carvedilol. - BRANDON hose for edema. Renal mass/renal cell carcinoma Noted on US and CT. Concerning for renal cell carcinoma. Pt says he knew he had a renal mass but failed to follow up on it. Oncology consult appreciated. - IR consult for renal biopsy. - vitamin K given. - Coumadin changed to heparin gtt. Discussed the case with Dr. Cadet over the phone, he suggests obtaining a urology consultation to obtain a most definitive treatment. Biopsy could be done at the time of definitive treatment. 01/16 urology consulted. Appreciate recommendations. MRI of the abdomen requested. Showed heterogeneous solid right renal mass centered in the mid pole. No enlarged lymph nodes. Ascites and right pleural effusion. As per urology recommendations nephrectomy will have to be pursued after the patient is taken off of anticoagulation as an outpatient. Hospital-acquired pneumonia CXR w/ RLL infiltrate. Afebrile, WBC 13. Productive cough. Recently hospitalized. - Continue IV Abx. Continue IV vancomycin and IV Zosyn for possible HCAP. - oxygen and DuoNebs prn. TRAM Resolved after IV fluid administration. Continue to monitor BUN/creatinine and Mr. I's and O's. Avoid nephrotoxins Left Ventricular Thrombus Seen on recent echocardiogram. 01/16 I will continue heparin drip and resume Coumadin for an INR goal of 2-3. 01/19 INR 1.1. dosing as per pharmacy. Continue heparin gtt bridge to Coumadin. Called and spoke with pharmacist so that we could get the patient therapeutic in a shorter time. Abdominal pain and distention Positive fluid wave. Elevated LFTs, new finding. Ultrasound and CT with ascites. Albumin 3. Hepatitis panel negative. Gastroenterology consult appreciated. - follow up with GI. - trend LFTs. - ammonia level elevated. Started lactulose - monitor ammonia level. - sp abdominal paracentesis. Peritoneal fluid analysis does not look infectious. Has 397 WBCs, with 868 RBCs. Thrombosis of the cephalic vein Noted on US. Continue Heparin drip, continue bridge to Coumadin - subtherapeutic inr of 1.1. Pharmacy helping with dosing. Hyperkalemia resolved after treatment with Kayexalate. Hypokalemia Potassium replaced. Potassium level now 4.0. Continue to monitor BMP. Scrotal edema Due to Anasarca - continue with diuresis. Seems to be slowly improving LLE Cellulitis - Continue IV Vancomycin and IV Zosyn - 01/15 MRI of the left lower extremity shows cellulitis without evidence of osteomyelitis. Left lotion with Doppler ultrasound ruled out DVT. Will consult infectious disease to help with antibiotic management. 01/17 appreciate ID recommendations - IV antibiotics discontinued - On Keflex. Acute gouty attack - right foot has tender inflamed first metatarsophalangeal joint, concurrent with gout. 01/16 patient status post treatment with oral colchicine. Uric acid 6.0. 01/19 Resolved. will start patient on allopurinol. DVT Prophylaxis: On heparin gtt. Discharge Planning Continue to monitor on the medical floor. Patient cannot be discharged until INR above 2. Problem Qualifiers (1) CHF (congestive heart failure): Qualified Code: I50.23 - Acute on chronic systolic congestive heart failure (2) COPD (chronic obstructive pulmonary disease): Qualified Code: J43.9 - Pulmonary emphysema, unspecified emphysema type Josh Ogden MD January 19, 2017 15:08
--- NOTE | 2017-01-19 15:16 | HHI.PR ---
Subjective Remarks no major overnight events denies cp/sob denies fevers/chills stable vital signs Objective Vitals Vital Signs Date Time Temp Pulse Resp B/P Pulse Ox O2 Delivery O2 Flow Rate FiO2 01/19/17 12:00 97.3 85 20 107/68 96 01/19/17 08:00 96.9 96 20 114/74 96 01/19/17 04:00 97.9 115 17 109/68 94 01/19/17 00:00 97.1 96 17 115/78 97 01/18/17 20:26 2 01/18/17 20:00 95 01/18/17 20:00 97.4 97 17 108/77 95 I/O 01/18/17 01/18/17 01/18/17 01/19/17 01/19/17 01/19/17 06:59 14:59 22:59 06:59 14:59 22:59 Intake Total 480 ml 88 ml 957 ml 1310 ml 900 ml Output Total 700 ml 1900 ml Balance -220 ml 88 ml 957 ml -590 ml 900 ml Intake Oral 480 ml 1200 ml 900 ml IV Total 88 ml 957 ml 110 ml Output Urine Total 700 ml 1900 ml # Voids 1 4 # Bowel Movements 0 Result Diagram: 01/19/17 0752 01/18/17 0710 Objective Remarks GENERAL: Well-developed well-nourished. In no acute distress. SKIN: Warm and dry. RUE with palpable and tender superficial veins. HEENT: Normocephalic. Pupils equal and round. Mucous membranes pink and moist. JVD. CARDIOVASCULAR: Regular rate and rhythm. No murmur appreciated. RESPIRATORY: No accessory muscle use. Crackles at the bases. GASTROINTESTINAL: Abdomen soft, non-tender, distended. Bowel sounds x4. MUSCULOSKELETAL: No obvious deformities. No clubbing or cyanosis. +2 edema on the right foot and 2+ edema on the left associated with erythema and tenderness on palpation. Thigh is bigger when compared to the right. There is some tenderness and swelling as well as erythema in the first metatarsophalangeal joint. Erythema of left lower extremity seems to be slightly improved from previous day. NEUROLOGICAL: Awake and alert. No focal neurological deficits. Moves upper and lower extremities spontaneously. Normal speech. PSYCHIATRIC: Awake and alert. Procedures sp Abdominal paracentesis 01/14/17 A/P Problem List: (1) CHF (congestive heart failure) ICD Code: I50.9 Status: Resolved (2) COPD (chronic obstructive pulmonary disease) ICD Code: J44.9 Status: Chronic (3) PNA (pneumonia) ICD Code: J18.9 Status: Resolved (4) TRAM (acute kidney injury) ICD Code: N17.9 Status: Resolved (5) Hyperkalemia ICD Code: E87.5 Status: Resolved (6) Right kidney mass ICD Code: N28.89 Status: Acute (7) Hypokalemia ICD Code: E87.6 Status: Resolved (8) Left ventricular thrombosis without [place] ICD Code: I51.3 Status: Acute Assessment and Plan 51-year-old male with a PMH of HTN, COPD, Fibromyalgia, GERD, CHF (Echo 12/28/16 w / EF 20%) who presented w/ complaints of bilateral lower extremity edema and increasing pain Sepsis Present on admission patient with leukocytosis and tachycardia with heart rate 100. Sepsis likely secondary to pneumonia and left lower extremity cellulitis. Continue IV Zosyn and IV vancomycin. WBC seems to be trending down, down to 12.3 from 8.6. 01/17 sepsis resolved. Leukocytosis resolved. Continue antibiotics as per ID. IV antibiotics discontinued. Patient started on po keflex. CHF Acute on chronic systolic CHF. Echo 12/28/16 w/ EF 20%. S/p eval by cardiology on recent admit 12/27-01/09/17 for CHF, pleural effusion s/p thoracentesis and PNA. Presented with chance of breath and edema. CXR w/ small to moderate right -sided pleural effusion and pulmonary venous congestion. - 20 mg IV Lasix BID. - Monitor I/Os. - Started carvedilol. - BRANDON hose for edema. Renal mass/renal cell carcinoma Noted on US and CT. Concerning for renal cell carcinoma. Pt says he knew he had a renal mass but failed to follow up on it. Oncology consult appreciated. - IR consult for renal biopsy. - vitamin K given. - Coumadin changed to heparin gtt. Discussed the case with Dr. Cadet over the phone, he suggests obtaining a urology consultation to obtain a most definitive treatment. Biopsy could be done at the time of definitive treatment. 01/16 urology consulted. Appreciate recommendations. MRI of the abdomen requested. Showed heterogeneous solid right renal mass centered in the mid pole. No enlarged lymph nodes. Ascites and right pleural effusion. As per urology recommendations nephrectomy will have to be pursued after the patient is taken off of anticoagulation as an outpatient. Hospital-acquired pneumonia CXR w/ RLL infiltrate. Afebrile, WBC 13. Productive cough. Recently hospitalized. - Continue IV Abx. Continue IV vancomycin and IV Zosyn for possible HCAP. - oxygen and DuoNebs prn. TRAM Resolved after IV fluid administration. Continue to monitor BUN/creatinine and Mr. I's and O's. Avoid nephrotoxins Left Ventricular Thrombus Seen on recent echocardiogram. 01/16 I will continue heparin drip and resume Coumadin for an INR goal of 2-3. 01/19 INR 1.1. dosing as per pharmacy. Continue heparin gtt bridge to Coumadin. Called and spoke with pharmacist so that we could get the patient therapeutic in a shorter time. Abdominal pain and distention Positive fluid wave. Elevated LFTs, new finding. Ultrasound and CT with ascites. Albumin 3. Hepatitis panel negative. Gastroenterology consult appreciated. - follow up with GI. - trend LFTs. - ammonia level elevated. Started lactulose - monitor ammonia level. - sp abdominal paracentesis. Peritoneal fluid analysis does not look infectious. Has 397 WBCs, with 868 RBCs. Thrombosis of the cephalic vein Noted on US. Continue Heparin drip, continue bridge to Coumadin - subtherapeutic inr of 1.1. Pharmacy helping with dosing. Hyperkalemia resolved after treatment with Kayexalate. Hypokalemia Potassium replaced. Potassium level now 4.0. Continue to monitor BMP. Scrotal edema Due to Anasarca - continue with diuresis. Seems to be slowly improving LLE Cellulitis - Continue IV Vancomycin and IV Zosyn - 01/15 MRI of the left lower extremity shows cellulitis without evidence of osteomyelitis. Left lotion with Doppler ultrasound ruled out DVT. Will consult infectious disease to help with antibiotic management. 01/17 appreciate ID recommendations - IV antibiotics discontinued - On Keflex. Acute gouty attack - right foot has tender inflamed first metatarsophalangeal joint, concurrent with gout. 01/16 patient status post treatment with oral colchicine. Uric acid 6.0. 01/19 Resolved. will start patient on allopurinol. DVT Prophylaxis: On heparin gtt. Discharge Planning Continue to monitor on the medical floor. Patient cannot be discharged until INR above 2. Problem Qualifiers (1) CHF (congestive heart failure): Qualified Code: I50.23 - Acute on chronic systolic congestive heart failure (2) COPD (chronic obstructive pulmonary disease): Qualified Code: J43.9 - Pulmonary emphysema, unspecified emphysema type Josh Ogden MD January 19, 2017 15:16
[2017-01-19] MEDS ORDERED: WARFARIN SOD 5 MG TAB PO ONE (16:00)
[2017-01-19] MEDS: WARFARIN SOD 5 MG TAB PO SCH (16:08)
[2017-01-19] MEDS: ALLOPURINOL 300 MG TAB PO SCH (16:09)
--- NOTE | 2017-01-19 22:50 | PD.ONC.PN ---
Subjective Subjective Remarks cytology did not show malignant cells continue heparin until INR > 2 or can be discharged home with Lovenox and Coumadin with outpatient management by pcp will sign-off outpatient f/u with oncology in 2-3 weeks Objective Data Date Time Temp Pulse Resp B/P Pulse Ox O2 Delivery O2 Flow Rate FiO2 01/19/17 20:20 98.4 97 16 108/63 98 01/19/17 16:00 98.4 92 20 107/80 96 01/19/17 12:00 97.3 85 20 107/68 96 01/19/17 08:00 96.9 96 20 114/74 96 01/19/17 07:12 96 01/19/17 04:00 97.9 115 17 109/68 94 01/19/17 00:00 97.1 96 17 115/78 97 01/19/17 01/19/17 01/19/17 07:00 15:00 23:00 Intake Total 1310 ml 900 ml 480 ml Output Total 1900 ml 2600 ml Balance -590 ml 900 ml -2120 ml Result Diagram: 01/19/17 0752 01/18/17 0710 Laboratory Results Laboratory Tests Test 01/18/17 01/19/17 23:31 07:52 Activated Partial 46.8 SEC 43.0 SEC Thromboplast Time White Blood Count 10.7 TH/MM3 Red Blood Count 4.35 MIL/MM3 Hemoglobin 11.1 GM/DL Hematocrit 36.1 % Mean Corpuscular Volume 83.0 FL Mean Corpuscular Hemoglobin 25.5 PG Mean Corpuscular Hemoglobin 30.7 % Concent Red Cell Distribution Width 16.2 % Platelet Count 234 TH/MM3 Mean Platelet Volume 9.2 FL Prothrombin Time 12.1 SEC Prothromb Time International 1.1 RATIO Ratio Administered Medications Medications (Trade) Dose Ordered Sig/Vishal Route PRN Reason Start Time Stop Time Status Last Admin Dose Admin Furosemide (Lasix Inj) 20 mg BID@,18 IV PUSH 01/10/17 09:00 01/19/17 17:20 Sodium Chloride (NS Flush) 2 ml BID IV FLUSH 01/10/17 09:00 01/19/17 20:45 Ondansetron HCl (Zofran Inj) 4 mg Q6H PRN IVP NAUSEA OR VOMITING 01/10/17 04:45 01/11/17 04:15 Gabapentin (Neurontin) 900 mg TID PO 01/10/17 09:00 01/19/17 17:20 Acetaminophen/ Hydrocodone Bitart ([place] 10-325 Mg) 1 tab Q6H PRN PO PAIN 3-10 01/11/17 07:43 01/19/17 20:45 Carvedilol (Coreg) 3.125 mg Q12HR PO 01/11/17 09:00 01/19/17 20:45 Polyethylene Glycol (Miralax) 17 gm BID PO 01/11/17 11:30 01/19/17 08:02 Lactulose 30 ml 30 ml DAILY PO 01/12/17 12:15 01/19/17 08:02 Heparin Sodium/ Dextrose (Heparin-D5W Inj) 250 ml @ 0 mls/hr TITRATE IV 01/13/17 02:00 01/19/17 11:54 Morphine Sulfate (Morphine Inj) 2 mg Q3H PRN IV PUSH BREAKTHROUGH PAIN 01/15/17 12:30 01/19/17 22:28 Warfarin Sodium (Coumadin) 5 mg DAILY@1600 PO 01/16/17 17:30 01/19/17 16:08 Cephalexin Monohydrate (Keflex) 500 mg Q8H PO 01/17/17 11:00 01/24/17 10:59 01/19/17 18:31 Allopurinol (Zyloprim) 300 mg DAILY PO 01/19/17 16:00 01/19/17 16:09 Objective Remarks GENERAL: nad SKIN: Warm and dry. NECK: Supple, trachea midline. No JVD or lymphadenopathy. LYMPHATIC: No adenopathy. CARDIOVASCULAR: Regular rate and rhythm without murmurs. RESPIRATORY: Breath sounds equal bilaterally. No accessory muscle use. GASTROINTESTINAL: Abdomen soft, distended, mildly tender EXTREMITIES: No cyanosis, or edema. Assessment/Plan Problem List: (1) Right kidney mass Status: Acute Plan: -- Solid mass R mid kidney suspicious for renal cell carcinoma, awaiting biopsy -- CEA normal (2) Left ventricular thrombosis without [place] Status: Acute Plan: --on heparin gtt to coumadin bridge Assessment 51 y/o male with history of CHF presents to the ER with persistent LE edema. Oncology consulted for renal mass suspicious for renal cell carcinoma. Plan 1. Outpatient nephrectomy per urology 2. Oncology f/u in 2-3 weeks Giancarlo Huang MD January 19, 2017 22:50
[2017-01-20] VITALS (9 sets, daily range): BP systolic 104–133; BP diastolic 58–79; PULSE 92–103; RESP 16–20; TEMP 97.2–98.7; O2SAT 95–99
--- NOTE | 2017-01-20 01:37 | HHI.PR ---
Blank section for building Received call from RN that patient had mechanical fall and hit his head- Patient able to ambulate after the fall, denies LOC does have laceration to forehead per RN Patient offering no other complaints at this time CT head without contrast ordered and pending Mica Lyle January 20, 2017 01:37
--- NOTE | 2017-01-20 02:02 | RADRPT ---
EXAM DATE/TIME: 01/20/2017 01:51 [facility] COMPARISON: No previous studies available for comparison. INDICATIONS : Trauma fall. Laceration to forehead. RADIATION DOSE: 38.44 CTDIvol (mGy) MEDICAL HISTORY : Hypertension. SURGICAL HISTORY : None. ENCOUNTER: Initial ACUITY: 1 day PAIN SCALE: 3/10 LOCATION: cranial TECHNIQUE: Multiple contiguous axial images were obtained of the head. Using automated exposure control and adj ustment of the mA and/or kV according to patient size, radiation dose was kept as low as reasonably a chievable to obtain optimal diagnostic quality images. FINDINGS: There is no evidence for intracranial hemorrhage, mass effect, mass lesions, edema, or extra-axial fl uid collections. The visualized bony structures appear intact. The ventricles are normal size for t he patient's age. There are no signs of acute infarction for technique. CONCLUSION: Unremarkable study. Letty Dee MD on January 20, 2017 at 1:59 Board Certified Radiologist. This report was verified electronically.
[2017-01-20] MEDS: CEPHALEXIN MONOHYDRATE 500 MG CAP PO SCH ×3 (02:10→17:20)
[2017-01-20 07:51] LABS: INTERNATIONAL NORMALIZED RATIO 1.2 RATIO; PROTHROMBIN TIME - PATIENT 13.1 SEC (9.8-11.6)
[2017-01-20] MEDS: POLYETHYLENE GLYCOL 17 GM PKG PO SCH ×2 (09:00→21:00)
[2017-01-20 09:27] LABS: APTT (PATIENT) 35.7 SEC (24.3-30.1)
[2017-01-20] MEDS: FUROSEMIDE 20 MG/2 ML VIAL IV PUSH SCH ×2 (09:34→17:19)
[2017-01-20] MEDS: LACTULOSE SYRUP 20 GM/30 ML CUP PO SCH (09:34)
[2017-01-20] MEDS: HEPARIN-D5W INJ 250 ML IV SCH (09:36)
[2017-01-20] MEDS: GABAPENTIN 300 MG CAP PO SCH ×3 (09:38→17:20)
[2017-01-20] MEDS: ACETAMINOPHEN/HYDROcodone 325 MG/10 MG TAB PO PRN ×3 (09:38→23:25)
[2017-01-20] MEDS: ALLOPURINOL 300 MG TAB PO SCH (09:38)
[2017-01-20] MEDS: SODIUM CHLORIDE 0.9% FLUSH 10 ML FLUSH IV FLUSH SCH ×2 (09:38→21:00)
[2017-01-20] MEDS: CARVEDILOL 3.125 MG TAB PO SCH ×2 (09:38→22:37)
--- NOTE | 2017-01-20 10:15 | PD.PN.STU ---
Subjective Remarks pt had a fall overnight, says he was sleepwalking which he does occasionally CT normal does have small laceration on forehead which is sore and some soreness in back pain in legs due to swelling - is receiving new compression socks as the last ones bothered him complains of abdominal pain due to fluid Objective Vitals GENERAL: Well-developed well-nourished. In no acute distress. SKIN: Warm and dry. RUE with palpable and tender superficial veins. HEENT: Normocephalic. Pupils equal and round. Mucous membranes pink and moist. JVD. CARDIOVASCULAR: Regular rate and rhythm. No murmur appreciated. RESPIRATORY: No accessory muscle use. Crackles at the bases. GASTROINTESTINAL: Abdomen soft, distended. Bowel sounds x4. MUSCULOSKELETAL: No obvious deformities. No clubbing or cyanosis. +2 edema on the right foot and 2+ edema on the left associated with erythema and tenderness on palpation. Thigh is bigger when compared to the right. There is some tenderness and swelling as well as erythema in the first metatarsophalangeal joint. Erythema of left lower extremity seems to be slightly improved from previous day. NEUROLOGICAL: Awake and alert. No focal neurological deficits. Moves upper and lower extremities spontaneously. Normal speech. PSYCHIATRIC: Awake and alert. Procedures sp Abdominal paracentesis 01/14/17 Vital Signs Date Time Temp Pulse Resp B/P Pulse Ox O2 Delivery O2 Flow Rate FiO2 01/20/17 08:00 98.0 100 18 116/70 96 01/20/17 04:00 98.2 96 16 109/79 95 01/20/17 01:45 97.7 92 18 110/72 99 01/20/17 01:15 97.2 94 20 133/58 01/19/17 23:24 97.8 93 16 118/68 93 01/19/17 20:20 98.4 97 16 108/63 98 01/19/17 20:00 100 01/19/17 16:00 98.4 92 20 107/80 96 01/19/17 12:00 97.3 85 20 107/68 96 I/O 01/19/17 01/19/17 01/19/17 01/20/17 01/20/17 01/20/17 07:00 15:00 23:00 07:00 15:00 23:00 Intake Total 1310 ml 900 ml 694 ml 344 ml Output Total 1900 ml 2600 ml 1550 ml Balance -590 ml 900 ml -1906 ml -1206 ml Intake Oral 1200 ml 900 ml 480 ml 240 ml IV Total 110 ml 214 ml 104 ml Output Urine Total 1900 ml 2600 ml 1550 ml # Voids 4 # Bowel Movements 1 0 Result Diagram: 01/19/17 0752 01/18/17 0710 A/P Assessment and Plan (1) CHF (congestive heart failure) ICD Code: I50.9 Status: Resolved (2) COPD (chronic obstructive pulmonary disease) ICD Code: J44.9 Status: Chronic (3) PNA (pneumonia) ICD Code: J18.9 Status: Resolved (4) TRAM (acute kidney injury) ICD Code: N17.9 Status: Resolved (5) Hyperkalemia ICD Code: E87.5 Status: Resolved (6) Right kidney mass ICD Code: N28.89 Status: Acute (7) Hypokalemia ICD Code: E87.6 Status: Resolved (8) Left ventricular thrombosis without [place] ICD Code: I51.3 Status: Acute Assessment and Plan 51-year-old male with a PMH of HTN, COPD, Fibromyalgia, GERD, CHF (Echo 12/28/16 w / EF 20%) who presented w/ complaints of bilateral lower extremity edema and increasing pain Sepsis Present on admission patient with leukocytosis and tachycardia with heart rate 100. Sepsis likely secondary to pneumonia and left lower extremity cellulitis. Continue IV Zosyn and IV vancomycin. WBC seems to be trending down, down to 12.3 from 8.6. 01/17 sepsis resolved. Leukocytosis resolved. Continue antibiotics as per ID. IV antibiotics discontinued. Patient started on po keflex. CHF Acute on chronic systolic CHF. Echo 12/28/16 w/ EF 20%. S/p eval by cardiology on recent admit 12/27-01/09/17 for CHF, pleural effusion s/p thoracentesis and PNA. Presented with chance of breath and edema. CXR w/ small to moderate right -sided pleural effusion and pulmonary venous congestion. - 20 mg IV Lasix BID. - Monitor I/Os. - Started carvedilol. - BRANDON hose for edema. Renal mass/renal cell carcinoma Noted on US and CT. Concerning for renal cell carcinoma. Pt says he knew he had a renal mass but failed to follow up on it. Oncology consult appreciated. - IR consult for renal biopsy. - vitamin K given. - Coumadin changed to heparin gtt. Discussed the case with Dr. Cadet over the phone, he suggests obtaining a urology consultation to obtain a most definitive treatment. Biopsy could be done at the time of definitive treatment. 01/16 urology consulted. Appreciate recommendations. MRI of the abdomen requested. Showed heterogeneous solid right renal mass centered in the mid pole. No enlarged lymph nodes. Ascites and right pleural effusion. As per urology recommendations nephrectomy will have to be pursued after the patient is taken off of anticoagulation as an outpatient. Hospital-acquired pneumonia CXR w/ RLL infiltrate. Afebrile, WBC 13. Productive cough. Recently hospitalized. - Continue IV Abx. Continue IV vancomycin and IV Zosyn for possible HCAP. - oxygen and DuoNebs prn. TRAM Resolved after IV fluid administration. Continue to monitor BUN/creatinine and Mr. I's and O's. Avoid nephrotoxins Left Ventricular Thrombus Seen on recent echocardiogram. 01/16 I will continue heparin drip and resume Coumadin for an INR goal of 2-3. 01/19 INR 1.1. dosing as per pharmacy. Continue heparin gtt bridge to Coumadin. Called and spoke with pharmacist so that we could get the patient therapeutic in a shorter time. 01/20 INR 1.2 Abdominal pain and distention Positive fluid wave. Elevated LFTs, new finding. Ultrasound and CT with ascites. Albumin 3. Hepatitis panel negative. Gastroenterology consult appreciated. - follow up with GI. - trend LFTs. - ammonia level elevated. Started lactulose - monitor ammonia level. - sp abdominal paracentesis. Peritoneal fluid analysis does not look infectious. Has 397 WBCs, with 868 RBCs. Thrombosis of the cephalic vein Noted on US. Continue Heparin drip, continue bridge to Coumadin - subtherapeutic inr of 1.2. Pharmacy helping with dosing. Hyperkalemia resolved after treatment with Kayexalate. Hypokalemia Potassium replaced. Potassium level now 4.0. Continue to monitor BMP. Scrotal edema Due to Anasarca - continue with diuresis. Seems to be slowly improving LLE Cellulitis - Continue IV Vancomycin and IV Zosyn - 01/15 MRI of the left lower extremity shows cellulitis without evidence of osteomyelitis. Left lotion with Doppler ultrasound ruled out DVT. Will consult infectious disease to help with antibiotic management. 01/17 appreciate ID recommendations - IV antibiotics discontinued - On Keflex. Acute gouty attack - right foot has tender inflamed first metatarsophalangeal joint, concurrent with gout. 01/16 patient status post treatment with oral colchicine. Uric acid 6.0. 01/19 Resolved. will start patient on allopurinol. DVT Prophylaxis: On heparin gtt. Discharge Planning Continue to monitor on the medical floor. Patient cannot be discharged until INR above 2. Shaun Hooks M3 January 20, 2017 10:15
[2017-01-20] MEDS: MORPHINE SULFATE 4 MG/ML INJ IV PUSH PRN ×2 (12:14→20:12)
--- NOTE | 2017-01-20 13:01 | HHI.IDPN ---
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 Vital Signs Date Time Temp Pulse Resp B/P Pulse Ox O2 Delivery O2 Flow Rate FiO2 01/20/17 12:00 98.6 99 18 104/58 95 01/20/17 08:09 103 01/20/17 08:00 98.0 100 18 116/70 96 01/20/17 04:00 98.2 96 16 109/79 95 01/20/17 01:45 97.7 92 18 110/72 99 01/20/17 01:15 97.2 94 20 133/58 01/19/17 23:24 97.8 93 16 118/68 93 01/19/17 20:20 98.4 97 16 108/63 98 01/19/17 20:00 100 01/19/17 16:00 98.4 92 20 107/80 96 01/19/17 01/19/17 01/20/17 15:00 23:00 07:00 Intake Total 900 ml 694 ml 344 ml Output Total 2600 ml 1550 ml Balance 900 ml -1906 ml -1206 ml Intake Oral 900 ml 480 ml 240 ml IV Total 214 ml 104 ml Output Urine Total 2600 ml 1550 ml # Voids 4 # Bowel Movements 1 0 . Laboratory Tests Test 01/19/17 07:52 White Blood Count 10.7 TH/MM3 Red Blood Count 4.35 MIL/MM3 Hemoglobin 11.1 GM/DL Hematocrit 36.1 % Mean Corpuscular Volume 83.0 FL Mean Corpuscular Hemoglobin 25.5 PG Mean Corpuscular Hemoglobin 30.7 % Concent Red Cell Distribution Width 16.2 % Platelet Count 234 TH/MM3 Mean Platelet Volume 9.[address] 01/20/17 0000 Signed Impressions: Service Date/Time: Friday, January 20, 2017 01:51 - CONCLUSION: Unremarkable study. Letty Dee MD Abdomen MRI 01/16/17 0000 Signed Impressions: Service Date/Time: Monday, January 16, 2017 10:37 - CONCLUSION: 1. Heterogeneous solid right renal mass centered in the mid pole again seen. No enlarged lymph nodes identified. 2. Ascites and right pleural effusion again noted. 3. Nonspecific diffuse wall thickening of nondistended bladder may be due to hypoalbuminemia. Jose J Emery MD Lower Extremity Ultrasound 01/15/17 0000 Signed Impressions: Service Date/Time: Sunday, January 15, 2017 09:50 - CONCLUSION: 1. No evidence of deep venous thrombosis. Andrew Dennis MD Foot MRI 01/15/17 0000 Signed Impressions: Service Date/Time: Sunday, January 15, 2017 11:08 - CONCLUSION: 1. Cellulitis without evidence of osteomyelitis Andrew Dennis MD Cyst Biopsy Asp-Paracentesis US 01/14/17 0600 Signed Impressions: Service Date/Time: December 08:47 - CONCLUSION: Uncomplicated ultrasound guided paracentesis. Andrew Dennis MD Upper Extremity Ultrasound 01/11/17 0000 Signed Impressions: Service Date/Time: Wednesday, January 11, 2017 09:38 - CONCLUSION: 1. Thrombosis of the cephalic vein. The remainder of the venous system of the right upper extremity is widely patent. Josh Cadet MD Abdomen/Pelvis CT 01/11/17 0000 Signed Impressions: Service Date/Time: Wednesday, January 11, 2017 18:34 - CONCLUSION: 1. Large amount of abdominal ascites. 2. Solid mass right mid kidney concerning for renal cell carcinoma. 3. Small right pleural effusion. 4. Anasarca. Mariano Oakley MD Abdomen Ultrasound 01/11/17 0000 Signed Impressions: Service Date/Time: Wednesday, January 11, 2017 14:15 - CONCLUSION: There is no significant ascites evident. Dru Cadet MD FACR Chest X-Ray 01/10/17 0000 Signed Impressions: Service Date/Time: Tuesday, January 10, 2017 03:18 - CONCLUSION: 1. Small to moderate right-sided pleural effusion. 2. Right lower lung infiltrate 3. Pulmonary venous congestion. August Elmore MD Physical Exam GENERAL: awake and alert, not in respiratory distress SKIN: Warm and dry. No generalized rash HEAD: Atraumatic. Normocephalic. No temporal wasting, or tenderness. EYES: [place] conjunctiva. No petechia or hemorrhage. No scleral icterus. No injection or drainage. EARS, NOSE AND THROAT: Nose without bleeding or purulent nasal discharge. Mucous membranes pink and moist. No oral lesions noted. NECK: Trachea midline. Supple and not tender, no meningeal signs CARDIOVASCULAR: Regular rate and rhythm. No murmurs, rubs or gallops heard RESPIRATORY: Clear to auscultation, decreased at the right base. Has decreased vocal fremitus. Breath sounds equal bilaterally. No rales, wheezing or rhonchi ABDOMEN: Soft, slightly globular, non-tender, nondistended. Bowel sounds present and normoactive. No guarding. No rebound. No organomegaly. EXTREMITIES: No clubbing, cyanosis. Has edema BLE, with mild erythema in distal L leg, with small superificial ulcers scattered. No crepitus. No calf tenderness. Well perfused and warm. NEUROLOGICAL: Non-focal. PSYCHIATRIC: Normal affect, calm and cooperative. LINE: No evidence of infection Assessment & Plan Remarks IMPRESSION Cellulitis LLE, mild Biventricular heart failure, has known LV thrombus COPD with cor pulmonale - clinically no evidence of PNA Abnormal LFT likely due to R sided failure, hepatic congestion better R renal mass RECOMMENDATION Give 7 days keflex - end date 01/24 Edema control - Rx CHF, plus leg elevation and BRANDON stocking - Explained use of stockings and leg elevation to patient He is clinically stable from ID standpoint He can be D/C from ID standpoint I will sign off Please call if with any new ID issue or question Elicia Tello MD January 20, 2017 13:01
[2017-01-20] MEDS: RESP: ALBUTEROL CONC 2.5 MG/0.5 ML NEB NEB PRN (15:20)
[2017-01-20] MEDS ORDERED: WARFARIN SOD 2.5 MG TAB PO ONE (16:00)
--- NOTE | 2017-01-20 17:18 | HHI.PR ---
Subjective Remarks Deferred entry - patient seen at 13:50 PM overnight events noted - patient sustained a fall and hit his head denies headache denies sob/cp stable vital signs states abdomen is getting bigger Objective Vitals Vital Signs Date Time Temp Pulse Resp B/P Pulse Ox O2 Delivery O2 Flow Rate FiO2 01/20/17 12:00 98.6 99 18 104/58 95 01/20/17 08:09 103 01/20/17 08:00 98.0 100 18 116/70 96 01/20/17 04:00 98.2 96 16 109/79 95 01/20/17 01:45 97.7 92 18 110/72 99 01/20/17 01:15 97.2 94 20 133/58 01/19/17 23:24 97.8 93 16 118/68 93 01/19/17 20:20 98.4 97 16 108/63 98 01/19/17 20:00 100 I/O 01/19/17 01/19/17 01/19/17 01/20/17 01/20/17 01/20/17 07:00 15:00 23:00 07:00 15:00 23:00 Intake Total 1310 ml 900 ml 694 ml 344 ml 88 ml Output Total 1900 ml 2600 ml 1550 ml Balance -590 ml 900 ml -1906 ml -1206 ml 88 ml Intake Oral 1200 ml 900 ml 480 ml 240 ml IV Total 110 ml 214 ml 104 ml 88 ml Output Urine Total 1900 ml 2600 ml 1550 ml # Voids 4 # Bowel Movements 1 0 Result Diagram: 01/19/17 0752 01/18/17 0710 Imaging Last Impressions Head CT 01/20/17 0000 Signed Impressions: Service Date/Time: Friday, January 20, 2017 01:51 - CONCLUSION: Unremarkable study. K. Hany Dee MD Abdomen MRI 01/16/17 0000 Signed Impressions: Service Date/Time: Monday, January 16, 2017 10:37 - CONCLUSION: 1. Heterogeneous solid right renal mass centered in the mid pole again seen. No enlarged lymph nodes identified. 2. Ascites and right pleural effusion again noted. 3. Nonspecific diffuse wall thickening of nondistended bladder may be due to hypoalbuminemia. Jose J Emery MD Lower Extremity Ultrasound 01/15/17 0000 Signed Impressions: Service Date/Time: Sunday, January 15, 2017 09:50 - CONCLUSION: 1. No evidence of deep venous thrombosis. Andrew Dennis MD Foot MRI 01/15/17 0000 Signed Impressions: Service Date/Time: Sunday, January 15, 2017 11:08 - CONCLUSION: 1. Cellulitis without evidence of osteomyelitis Andrew Dennis MD Cyst Biopsy Asp-Paracentesis US 01/14/17 0600 Signed Impressions: Service Date/Time: December 08:47 - CONCLUSION: Uncomplicated ultrasound guided paracentesis. Andrew Dennis MD Upper Extremity Ultrasound 01/11/17 0000 Signed Impressions: Service Date/Time: Wednesday, January 11, 2017 09:38 - CONCLUSION: 1. Thrombosis of the cephalic vein. The remainder of the venous system of the right upper extremity is widely patent. Josh Cadet MD Abdomen/Pelvis CT 01/11/17 0000 Signed Impressions: Service Date/Time: Wednesday, January 11, 2017 18:34 - CONCLUSION: 1. Large amount of abdominal ascites. 2. Solid mass right mid kidney concerning for renal cell carcinoma. 3. Small right pleural effusion. 4. Anasarca. Mariano Oakley MD Abdomen Ultrasound 01/11/17 0000 Signed Impressions: Service Date/Time: Wednesday, January 11, 2017 14:15 - CONCLUSION: There is no significant ascites evident. Dru Cadet MD FACR Chest X-Ray 01/10/17 0000 Signed Impressions: Service Date/Time: Tuesday, January 10, 2017 03:18 - CONCLUSION: 1. Small to moderate right-sided pleural effusion. 2. Right lower lung infiltrate 3. Pulmonary venous congestion. August Elmore MD Objective Remarks GENERAL: Well-developed well-nourished. In no acute distress. SKIN: Warm and dry. RUE with palpable and tender superficial veins. HEENT: Normocephalic. Pupils equal and round. Mucous membranes pink and moist. JVD. CARDIOVASCULAR: Regular rate and rhythm. No murmur appreciated. RESPIRATORY: No accessory muscle use. Crackles at the bases. GASTROINTESTINAL: Abdomen soft, non-tender, distended. Bowel sounds x4. MUSCULOSKELETAL: No obvious deformities. No clubbing or cyanosis. +2 edema on the right foot and 2+ edema on the left associated with erythema and tenderness on palpation. Thigh is bigger when compared to the right. There is some tenderness and swelling as well as erythema in the first metatarsophalangeal joint. Erythema of left lower extremity seems to be slightly improved from previous day. NEUROLOGICAL: Awake and alert. No focal neurological deficits. Moves upper and lower extremities spontaneously. Normal speech. PSYCHIATRIC: Awake and alert. Procedures sp Abdominal paracentesis 01/14/17 Medications and IVs Current Medications Medications (Trade) Dose Ordered Sig/Vishal Route Start Time Stop Time Status Last Admin (Lasix Inj) 20 mg BID@18 IV PUSH 01/10/17 09:00 01/20/17 09:34 (NS Flush) 2 ml UNSCH PRN IV FLUSH 01/10/17 04:45 (NS Flush) 2 ml BID IV FLUSH 01/10/17 09:00 01/20/17 09:38 (Zofran Inj) 4 mg Q6H PRN IVP 01/10/17 04:45 01/11/17 04:15 (Dulcolax Supp) 10 mg DAILY PRN RECTAL 01/10/17 04:45 (Tylenol) 650 mg Q6H PRN PO 01/10/17 04:45 (Neurontin) 900 mg TID PO 01/10/17 09:00 01/20/17 12:13 ([place] 10-325 Mg) 1 tab Q6H PRN PO 01/11/17 07:43 01/20/17 09:38 (Coreg) 3.125 mg Q12HR PO 01/11/17 09:00 01/20/17 09:38 (Miralax) 17 gm BID PO 01/11/17 11:30 01/19/17 08:02 Lactulose 30 ml 30 ml DAILY PO 01/12/17 12:15 01/20/17 09:34 (Heparin-D5W Inj) 250 ml @ 0 mls/hr TITRATE IV 01/13/17 02:00 01/20/17 09:36 (Morphine Inj) 2 mg Q3H PRN IV PUSH 01/15/17 12:30 01/20/17 12:14 Warfarin Sodium 5 mg 5 mg DAILY@1600 PO 01/16/17 17:30 Hold 01/19/17 16:08 (Coumadin Consult Pharmacy) 0 ml @ 0 mls/hr UNSCH OTHER 01/16/17 17:30 Hold (Keflex) 500 mg Q8H PO 01/17/17 11:00 01/24/17 10:59 01/20/17 12:13 (Zyloprim) 300 mg DAILY PO 01/19/17 16:00 01/20/17 09:38 Urinary Catheter: No Vascular Central Line Catheter: No A/P Problem List: (1) CHF (congestive heart failure) ICD Code: I50.9 Status: Resolved (2) COPD (chronic obstructive pulmonary disease) ICD Code: J44.9 Status: Chronic (3) PNA (pneumonia) ICD Code: J18.9 Status: Resolved (4) TRAM (acute kidney injury) ICD Code: N17.9 Status: Resolved (5) Hyperkalemia ICD Code: E87.5 Status: Resolved (6) Right kidney mass ICD Code: N28.89 Status: Acute (7) Hypokalemia ICD Code: E87.6 Status: Resolved (8) Left ventricular thrombosis without [place] ICD Code: I51.3 Status: Acute Assessment and Plan 51-year-old male with a PMH of HTN, COPD, Fibromyalgia, GERD, CHF (Echo 12/28/16 w / EF 20%) who presented w/ complaints of bilateral lower extremity edema and increasing pain Sepsis Present on admission patient with leukocytosis and tachycardia with heart rate 100. Sepsis likely secondary to pneumonia and left lower extremity cellulitis. Continue IV Zosyn and IV vancomycin. WBC seems to be trending down, down to 12.3 from 8.6. 01/17 sepsis resolved. Leukocytosis resolved. Continue antibiotics as per ID. IV antibiotics discontinued. Patient started on po keflex. CHF Acute on chronic systolic CHF. Echo 12/28/16 w/ EF 20%. S/p eval by cardiology on recent admit 12/27-01/09/17 for CHF, pleural effusion s/p thoracentesis and PNA. Presented with chance of breath and edema. CXR w/ small to moderate right -sided pleural effusion and pulmonary venous congestion. - 20 mg IV Lasix BID. - Monitor I/Os. - Started carvedilol. - BRANDON hose for edema. Renal mass/renal cell carcinoma Noted on US and CT. Concerning for renal cell carcinoma. Pt says he knew he had a renal mass but failed to follow up on it. Oncology consult appreciated. - IR consult for renal biopsy. - vitamin K given. - Coumadin changed to heparin gtt. Discussed the case with Dr. Cadet over the phone, he suggests obtaining a urology consultation to obtain a most definitive treatment. Biopsy could be done at the time of definitive treatment. 01/16 urology consulted. Appreciate recommendations. MRI of the abdomen requested. Showed heterogeneous solid right renal mass centered in the mid pole. No enlarged lymph nodes. Ascites and right pleural effusion. As per urology recommendations nephrectomy will have to be pursued after the patient is taken off of anticoagulation as an outpatient. Hospital-acquired pneumonia CXR w/ RLL infiltrate. Afebrile, WBC 13. Productive cough. Recently hospitalized. - Continue IV Abx. Continue IV vancomycin and IV Zosyn for possible HCAP. - oxygen and DuoNebs prn. TRAM Resolved after IV fluid administration. Continue to monitor BUN/creatinine and Mr. I's and O's. Avoid nephrotoxins Left Ventricular Thrombus Seen on recent echocardiogram. 01/16 I will continue heparin drip and resume Coumadin for an INR goal of 2-3. 01/19 INR 1.1. dosing as per pharmacy. Continue heparin gtt bridge to Coumadin. Called and spoke with pharmacist so that we could get the patient therapeutic in a shorter time. 01/20 Hold Coumadin for Us guided abdominal paracentesis. Ascites/abdominal distention Likely secondary to congestive hepatopathy. Hepatitis panel negative. Gi consulted. - follow up with GI. - trend LFTs. - ammonia level elevated. Started lactulose - monitor ammonia level. - sp abdominal paracentesis. Peritoneal fluid analysis does not look infectious. Has 397 WBCs, with 868 RBCs. 01/20 Abdomen looks more distended will order another us guided abdominal paracentesis. Thrombosis of the cephalic vein Noted on US. 01/20 On heparin bridge to Coumadin. Hold Coumadin today for Paracentesis. Hyperkalemia resolved after treatment with Kayexalate. Hypokalemia Potassium replaced. Potassium level normal. Continue to monitor BMP. Scrotal edema Due to Anasarca - continue with diuresis. Seems to be slowly improving LLE Cellulitis - Initially treated IV Vancomycin and IV Zosyn. 01/15 MRI of the left lower extremity shows cellulitis without evidence of osteomyelitis. Left lotion with Doppler ultrasound ruled out DVT. Will consult infectious disease to help with antibiotic management. 01/17 appreciate ID recommendations - IV antibiotics discontinued - On Keflex. Acute gouty attack - right foot has tender inflamed first metatarsophalangeal joint, concurrent with gout. 01/16 patient status post treatment with oral colchicine. Uric acid 6.0. 01/19 Resolved. will start patient on allopurinol. Sp Fall Patient fell and hit his head on 01/19 and sustained a laceration on his forehead. CT of the head obtained after the fall did not show any acute hemorrhage. DVT Prophylaxis: On heparin gtt. Discharge Planning Continue to monitor on the medical floor. Pending ultrasound-guided abdominal paracentesis. Problem Qualifiers (1) CHF (congestive heart failure): Qualified Code: I50.23 - Acute on chronic systolic congestive heart failure (2) COPD (chronic obstructive pulmonary disease): Qualified Code: J43.9 - Pulmonary emphysema, unspecified emphysema type Josh Ogden MD January 20, 2017 17:18
[2017-01-20] MEDS: SPIRONOLACTONE 50 MG TAB PO SCH (17:30)
[2017-01-20 18:45] LABS: APTT (PATIENT) 47.8 SEC (24.3-30.1)
[2017-01-21] VITALS (7 sets, daily range): BP systolic 95–114; BP diastolic 51–73; PULSE 89–105; RESP 18–20; TEMP 97.2–98.5; O2SAT 93–100
[2017-01-21 00:49] LABS: APTT (PATIENT) 42.5 SEC (24.3-30.1)
[2017-01-21] MEDS: RESP: ALBUTEROL CONC 2.5 MG/0.5 ML NEB NEB PRN (01:24)
[2017-01-21] MEDS: HEPARIN-D5W INJ 250 ML IV SCH ×2 (04:10→22:44)
[2017-01-21] MEDS: CEPHALEXIN MONOHYDRATE 500 MG CAP PO SCH ×3 (04:13→17:44)
[2017-01-21] MEDS: ACETAMINOPHEN/HYDROcodone 325 MG/10 MG TAB PO PRN ×3 (05:52→17:52)
[2017-01-21 07:51] LABS: APTT (PATIENT) 49.9 SEC (24.3-30.1); INTERNATIONAL NORMALIZED RATIO 1.2 RATIO; PROTHROMBIN TIME - PATIENT 12.8 SEC (9.8-11.6)
[2017-01-21] MEDS: SODIUM CHLORIDE 0.9% FLUSH 10 ML FLUSH IV FLUSH SCH ×2 (09:00→20:31)
[2017-01-21] MEDS: LACTULOSE SYRUP 20 GM/30 ML CUP PO SCH (09:00)
[2017-01-21] MEDS: POLYETHYLENE GLYCOL 17 GM PKG PO SCH ×2 (09:00→20:31)
[2017-01-21] MEDS: FUROSEMIDE 20 MG/2 ML VIAL IV PUSH SCH (09:24)
[2017-01-21] MEDS: ALLOPURINOL 300 MG TAB PO SCH (09:25)
[2017-01-21] MEDS: GABAPENTIN 300 MG CAP PO SCH ×3 (09:25→17:45)
[2017-01-21] MEDS: CARVEDILOL 3.125 MG TAB PO SCH ×2 (09:25→20:29)
[2017-01-21] MEDS: SPIRONOLACTONE 50 MG TAB PO SCH (09:25)
--- NOTE | 2017-01-21 10:17 | RADRPT ---
EXAM DATE/TIME: 01/21/2017 09:51 [facility] COMPARISON: No previous studies available for comparison. INDICATIONS : Abdominal distention. Ascites. MEDICAL HISTORY : Arthritis. Osteoporosis. Ascites. Migraines. CHF. HTN. Asthma. Sleep apnea. Dyspnea. GERD. Left kid sajan mass. Fibromyalgia. Depression. SURGICAL HISTORY : Left knee. Paracentesis. ENCOUNTER: Subsequent ACUITY: 1 day PAIN SCORE: 1/10 LOCATION: Abdomen. AREA EVALUATED: Quadrants. FINDINGS: Imaging of the abdomen and pelvis was performed to evaluate for ascites for possible paracentesis. CONCLUSION: 1. Mild ascites is noted, insufficient for safe paracentesis. Raphael Oliveira MD on January 21, 2017 at 10:11 Board Certified Radiologist. This report was verified electronically.
--- NOTE | 2017-01-21 10:29 | PD.PN.STU ---
Subjective Remarks feeling much better today US of abdomen showed minimal fluid - not enough to drain he feels swelling is improving no CP, SOB, n/v, falls/dizzness vitals stable Objective Vitals GENERAL: Well-developed well-nourished. In no acute distress. SKIN: Warm and dry. HEENT: Normocephalic. Pupils equal and round. Mucous membranes pink and moist. JVD. CARDIOVASCULAR: Regular rate and rhythm. No murmur appreciated. RESPIRATORY: No accessory muscle use. Crackles at the bases. GASTROINTESTINAL: Abdomen soft, pain with palpation in RLQ, but improving. Bowel sounds x4. MUSCULOSKELETAL: +1 pedal edema Vital Signs Date Time Temp Pulse Resp B/P Pulse Ox O2 Delivery O2 Flow Rate FiO2 01/21/17 08:00 97.4 95 18 109/68 100 01/21/17 04:00 98.0 99 20 98/57 95 01/21/17 00:00 97.2 98 18 110/72 94 01/20/17 20:48 100 01/20/17 20:00 98.7 99 20 108/74 97 01/20/17 16:00 98.5 96 18 106/64 98 01/20/17 12:00 98.6 99 18 104/58 95 I/O 01/20/17 01/20/17 01/20/17 01/21/17 01/21/17 01/21/17 07:00 15:00 23:00 07:00 15:00 23:00 Intake Total 344 ml 1048 ml 240 ml 240 ml Output Total 1550 ml 4225 ml 675 ml 625 ml Balance -1206 ml -3177 ml -435 ml -385 ml Intake Oral 240 ml 960 ml 240 ml 240 ml IV Total 104 ml 88 ml Output Urine Total 1550 ml 4225 ml 675 ml 625 ml # Bowel Movements 0 0 0 1 Result Diagram: 01/19/17 0752 01/18/17 0710 A/P Assessment and Plan (1) CHF (congestive heart failure) ICD Code: I50.9 Status: Resolved (2) COPD (chronic obstructive pulmonary disease) ICD Code: J44.9 Status: Chronic (3) PNA (pneumonia) ICD Code: J18.9 Status: Resolved (4) TRAM (acute kidney injury) ICD Code: N17.9 Status: Resolved (5) Hyperkalemia ICD Code: E87.5 Status: Resolved (6) Right kidney mass ICD Code: N28.89 Status: Acute (7) Hypokalemia ICD Code: E87.6 Status: Resolved (8) Left ventricular thrombosis without [place] ICD Code: I51.3 Status: Acute Assessment and Plan 51-year-old male with a PMH of HTN, COPD, Fibromyalgia, GERD, CHF (Echo 12/28/16 w / EF 20%) who presented w/ complaints of bilateral lower extremity edema and increasing pain Sepsis Present on admission patient with leukocytosis and tachycardia with heart rate 100. Sepsis likely secondary to pneumonia and left lower extremity cellulitis. Continue IV Zosyn and IV vancomycin. WBC seems to be trending down, down to 12.3 from 8.6. 01/17 sepsis resolved. Leukocytosis resolved. Continue antibiotics as per ID. IV antibiotics discontinued. Patient started on po keflex. CHF Acute on chronic systolic CHF. Echo 12/28/16 w/ EF 20%. S/p eval by cardiology on recent admit 12/27-01/09/17 for CHF, pleural effusion s/p thoracentesis and PNA. Presented with chance of breath and edema. CXR w/ small to moderate right -sided pleural effusion and pulmonary venous congestion. - 20 mg IV Lasix BID. - Monitor I/Os. - Started carvedilol. - BRANDON hose for edema. Renal mass/renal cell carcinoma Noted on US and CT. Concerning for renal cell carcinoma. Pt says he knew he had a renal mass but failed to follow up on it. Oncology consult appreciated. - IR consult for renal biopsy. - vitamin K given. - Coumadin changed to heparin gtt. Discussed the case with Dr. Cadet over the phone, he suggests obtaining a urology consultation to obtain a most definitive treatment. Biopsy could be done at the time of definitive treatment. 01/16 urology consulted. Appreciate recommendations. MRI of the abdomen requested. Showed heterogeneous solid right renal mass centered in the mid pole. No enlarged lymph nodes. Ascites and right pleural effusion. As per urology recommendations nephrectomy will have to be pursued after the patient is taken off of anticoagulation as an outpatient. Hospital-acquired pneumonia CXR w/ RLL infiltrate. Afebrile, WBC 13. Productive cough. Recently hospitalized. - Continue IV Abx. Continue IV vancomycin and IV Zosyn for possible HCAP. - oxygen and DuoNebs prn. TRAM Resolved after IV fluid administration. Continue to monitor BUN/creatinine and Mr. I's and O's. Avoid nephrotoxins Left Ventricular Thrombus Seen on recent echocardiogram. 01/16 I will continue heparin drip and resume Coumadin for an INR goal of 2-3. 01/19 INR 1.1. dosing as per pharmacy. Continue heparin gtt bridge to Coumadin. Called and spoke with pharmacist so that we could get the patient therapeutic in a shorter time. 01/20 INR 1.2 Abdominal pain and distention Positive fluid wave. Elevated LFTs, new finding. Ultrasound and CT with ascites. Albumin 3. Hepatitis panel negative. Gastroenterology consult appreciated. - follow up with GI. - trend LFTs. - ammonia level elevated. Started lactulose - monitor ammonia level. - sp abdominal paracentesis. Peritoneal fluid analysis does not look infectious. Has 397 WBCs, with 868 RBCs. - 01/21 U/S did not reveal enough fluid for paracentesis Thrombosis of the cephalic vein Noted on US. Continue Heparin drip, continue bridge to Coumadin - subtherapeutic inr of 1.2. Pharmacy helping with dosing. Hyperkalemia resolved after treatment with Kayexalate. Hypokalemia Potassium replaced. Potassium level now 4.0. Continue to monitor BMP. Scrotal edema Due to Anasarca - continue with diuresis. Seems to be slowly improving LLE Cellulitis - Continue IV Vancomycin and IV Zosyn - 01/15 MRI of the left lower extremity shows cellulitis without evidence of osteomyelitis. Left lotion with Doppler ultrasound ruled out DVT. Will consult infectious disease to help with antibiotic management. 01/17 appreciate ID recommendations - IV antibiotics discontinued - On Keflex. Acute gouty attack - right foot has tender inflamed first metatarsophalangeal joint, concurrent with gout. 01/16 patient status post treatment with oral colchicine. Uric acid 6.0. 01/19 Resolved. will start patient on allopurinol. DVT Prophylaxis: On heparin gtt. Discharge Planning Continue to monitor on the medical floor. Patient cannot be discharged until INR above 2. Shaun Hooks January 21, 2017 10:29
--- NOTE | 2017-01-21 14:16 | HHI.PR ---
Subjective Remarks Patient seen earlier at 11:30 am Patient states he feels much better edema has significantly come down Patient had good urine output - over 3 liters stable vital signs - no fevers Objective Vitals Vital Signs Date Time Temp Pulse Resp B/P Pulse Ox O2 Delivery O2 Flow Rate FiO2 01/21/17 12:41 18 01/21/17 12:00 98.5 90 18 95/51 97 01/21/17 08:00 97.4 95 18 109/68 100 01/21/17 04:00 98.0 99 20 98/57 95 01/21/17 00:00 97.2 98 18 110/72 94 01/20/17 20:48 100 01/20/17 20:00 98.7 99 20 108/74 97 01/20/17 16:00 98.5 96 18 106/64 98 I/O 01/20/17 01/20/17 01/20/17 01/21/17 01/21/17 01/21/17 07:00 15:00 23:00 07:00 15:00 23:00 Intake Total 344 ml 1048 ml 240 ml 240 ml Output Total 1550 ml 4225 ml 675 ml 625 ml Balance -1206 ml -3177 ml -435 ml -385 ml Intake Oral 240 ml 960 ml 240 ml 240 ml IV Total 104 ml 88 ml Output Urine Total 1550 ml 4225 ml 675 ml 625 ml # Bowel Movements 0 0 0 1 Result Diagram: 01/19/17 0752 01/18/17 0710 Imaging Last Impressions Abdomen Ultrasound 01/21/17 0000 Signed Impressions: Service Date/Time: December 09:51 - CONCLUSION: 1. Mild ascites is noted, insufficient for safe paracentesis. Raphael Oliveira MD Head CT 01/20/17 0000 Signed Impressions: Service Date/Time: Friday, January 20, 2017 01:51 - CONCLUSION: Unremarkable study. Letty Dee MD Abdomen MRI 01/16/17 0000 Signed Impressions: Service Date/Time: Monday, January 16, 2017 10:37 - CONCLUSION: 1. Heterogeneous solid right renal mass centered in the mid pole again seen. No enlarged lymph nodes identified. 2. Ascites and right pleural effusion again noted. 3. Nonspecific diffuse wall thickening of nondistended bladder may be due to hypoalbuminemia. Jose J Emery MD Lower Extremity Ultrasound 01/15/17 0000 Signed Impressions: Service Date/Time: Sunday, January 15, 2017 09:50 - CONCLUSION: 1. No evidence of deep venous thrombosis. Andrew Dennis MD Foot MRI 01/15/17 0000 Signed Impressions: Service Date/Time: Sunday, January 15, 2017 11:08 - CONCLUSION: 1. Cellulitis without evidence of osteomyelitis Andrew Dennis MD Cyst Biopsy Asp-Paracentesis US 01/14/17 0600 Signed Impressions: Service Date/Time: December 08:47 - CONCLUSION: Uncomplicated ultrasound guided paracentesis. Andrew Dennis MD Upper Extremity Ultrasound 01/11/17 0000 Signed Impressions: Service Date/Time: Wednesday, January 11, 2017 09:38 - CONCLUSION: 1. Thrombosis of the cephalic vein. The remainder of the venous system of the right upper extremity is widely patent. Josh Cadet MD Abdomen/Pelvis CT 01/11/17 0000 Signed Impressions: Service Date/Time: Wednesday, January 11, 2017 18:34 - CONCLUSION: 1. Large amount of abdominal ascites. 2. Solid mass right mid kidney concerning for renal cell carcinoma. 3. Small right pleural effusion. 4. Anasarca. Mariano Oakley MD Chest X-Ray 01/10/17 0000 Signed Impressions: Service Date/Time: Tuesday, January 10, 2017 03:18 - CONCLUSION: 1. Small to moderate right-sided pleural effusion. 2. Right lower lung infiltrate 3. Pulmonary venous congestion. August Elmore MD Objective Remarks GENERAL: Well-developed well-nourished. In no acute distress. SKIN: Warm and dry. RUE with palpable and tender superficial veins. HEENT: Normocephalic. Pupils equal and round. Mucous membranes pink and moist. JVD. CARDIOVASCULAR: Regular rate and rhythm. No murmur appreciated. RESPIRATORY: No accessory muscle use. Crackles at the bases. GASTROINTESTINAL: Abdomen soft, non-tender, distended. Bowel sounds x4. MUSCULOSKELETAL: No obvious deformities. No clubbing or cyanosis. +2 edema on the right foot and 2+ edema on the left associated with erythema and tenderness on palpation. Thigh is bigger when compared to the right. There is some tenderness and swelling as well as erythema in the first metatarsophalangeal joint. Erythema of left lower extremity seems to be slightly improved from previous day. NEUROLOGICAL: Awake and alert. No focal neurological deficits. Moves upper and lower extremities spontaneously. Normal speech. PSYCHIATRIC: Awake and alert. Procedures sp Abdominal paracentesis 01/14/17 Medications and IVs Current Medications Medications (Trade) Dose Ordered Sig/Vishal Route Start Time Stop Time Status Last Admin (NS Flush) 2 ml UNSCH PRN IV FLUSH 01/10/17 04:45 (NS Flush) 2 ml BID IV FLUSH 01/10/17 09:00 01/20/17 21:00 (Zofran Inj) 4 mg Q6H PRN IVP 01/10/17 04:45 01/11/17 04:15 (Dulcolax Supp) 10 mg DAILY PRN RECTAL 01/10/17 04:45 (Tylenol) 650 mg Q6H PRN PO 01/10/17 04:45 (Neurontin) 900 mg TID PO 01/10/17 09:00 01/21/17 09:25 (Hargill 10-325 Mg) 1 tab Q6H PRN PO 01/11/17 07:43 01/21/17 11:31 (Coreg) 3.125 mg Q12HR PO 01/11/17 09:00 01/21/17 09:25 (Miralax) 17 gm BID PO 01/11/17 11:30 01/19/17 08:02 Lactulose 30 ml 30 ml DAILY PO 01/12/17 12:15 01/20/17 09:34 (Heparin-D5W Inj) 250 ml @ 0 mls/hr TITRATE IV 01/13/17 02:00 01/21/17 04:10 (Morphine Inj) 2 mg Q3H PRN IV PUSH 01/15/17 12:30 01/20/17 20:12 (Keflex) 500 mg Q8H PO 01/17/17 11:00 01/24/17 10:59 01/21/17 09:26 (Zyloprim) 300 mg DAILY PO 01/19/17 16:00 01/21/17 09:25 (Aldactone) 50 mg DAILY PO 01/20/17 17:30 01/21/17 09:25 (Coumadin) 10 mg DAILY@16 PO 01/21/17 16:00 (Lasix) 40 mg DAILY PO 01/22/17 09:00 Urinary Catheter: No Vascular Central Line Catheter: No A/P Problem List: (1) CHF (congestive heart failure) ICD Code: I50.9 Status: Resolved (2) COPD (chronic obstructive pulmonary disease) ICD Code: J44.9 Status: Chronic (3) PNA (pneumonia) ICD Code: J18.9 Status: Resolved (4) TRAM (acute kidney injury) ICD Code: N17.9 Status: Resolved (5) Hyperkalemia ICD Code: E87.5 Status: Resolved (6) Right kidney mass ICD Code: N28.89 Status: Acute (7) Hypokalemia ICD Code: E87.6 Status: Resolved (8) Left ventricular thrombosis without [place] ICD Code: I51.3 Status: Acute Assessment and Plan 51-year-old male with a PMH of HTN, COPD, Fibromyalgia, GERD, CHF (Echo 12/28/16 w / EF 20%) who presented w/ complaints of bilateral lower extremity edema and increasing pain Sepsis Present on admission patient with leukocytosis and tachycardia with heart rate 100. Sepsis likely secondary to pneumonia and left lower extremity cellulitis. Continue IV Zosyn and IV vancomycin. WBC seems to be trending down, down to 12.3 from 8.6. 01/17 sepsis resolved. Leukocytosis resolved. Continue antibiotics as per ID. IV antibiotics discontinued. Patient started on po keflex. CHF Acute on chronic systolic CHF. Echo 12/28/16 w/ EF 20%. S/p eval by cardiology on recent admit 12/27-01/09/17 for CHF, pleural effusion s/p thoracentesis and PNA. Presented with chance of breath and edema. CXR w/ small to moderate right -sided pleural effusion and pulmonary venous congestion. - 20 mg IV Lasix BID. - Monitor I/Os. - Started carvedilol. - BRANDON artiee for edema. Renal mass/renal cell carcinoma Noted on US and CT. Concerning for renal cell carcinoma. Pt says he knew he had a renal mass but failed to follow up on it. Oncology consult appreciated. - IR consult for renal biopsy. - vitamin K given. - Coumadin changed to heparin gtt. Discussed the case with Dr. Cadet over the phone, he suggests obtaining a urology consultation to obtain a most definitive treatment. Biopsy could be done at the time of definitive treatment. 01/16 urology consulted. Appreciate recommendations. MRI of the abdomen requested. Showed heterogeneous solid right renal mass centered in the mid pole. No enlarged lymph nodes. Ascites and right pleural effusion. As per urology recommendations nephrectomy will have to be pursued after the patient is taken off of anticoagulation as an outpatient. Hospital-acquired pneumonia CXR w/ RLL infiltrate. Afebrile, WBC 13. Productive cough. Recently hospitalized. - Continue IV Abx. Continue IV vancomycin and IV Zosyn for possible HCAP. - oxygen and DuoNebs prn. TRAM Resolved after IV fluid administration. Continue to monitor BUN/creatinine and Mr. I's and O's. Avoid nephrotoxins Left Ventricular Thrombus Seen on recent echocardiogram. 01/16 I will continue heparin drip and resume Coumadin for an INR goal of 2-3. 01/19 INR 1.1. dosing as per pharmacy. Continue heparin gtt bridge to Coumadin. Called and spoke with pharmacist so that we could get the patient therapeutic in a shorter time. 01/20 Hold Coumadin for Us guided abdominal paracentesis. 01/21 Continue heparin bridge to Coumadin - Goal INR 2 to 3. Ascites/abdominal distention Likely secondary to congestive hepatopathy. Hepatitis panel negative. Gi consulted. - follow up with GI. - trend LFTs. - ammonia level elevated. Started lactulose - monitor ammonia level. - sp abdominal paracentesis. Peritoneal fluid analysis does not look infectious. Has 397 WBCs, with 868 RBCs. 01/20 Abdomen looks more distended will order another us guided abdominal paracentesis. 01/21 Abdominal US does not show enough fluid to be drained. Will resume Coumadin. Will give Coumadin 10 mg daily. Monitor PT/INR. Thrombosis of the cephalic vein Noted on US. 01/20 On heparin bridge to Coumadin. Hold Coumadin today for Paracentesis. Hyperkalemia resolved after treatment with Kayexalate. Hypokalemia Potassium replaced. Potassium level normal. Continue to monitor BMP. Scrotal edema Due to Anasarca - continue with diuresis. Seems to be slowly improving LLE Cellulitis - Initially treated IV Vancomycin and IV Zosyn. 01/15 MRI of the left lower extremity shows cellulitis without evidence of osteomyelitis. Left lotion with Doppler ultrasound ruled out DVT. Will consult infectious disease to help with antibiotic management. 01/17 appreciate ID recommendations - IV antibiotics discontinued - On Keflex. Acute gouty attack - right foot has tender inflamed first metatarsophalangeal joint, concurrent with gout. sp treatment with colchicine now resolved. Started on Allopurinol. continue. Sp Fall Patient fell and hit his head on 01/19 and sustained a laceration on his forehead. CT of the head obtained after the fall did not show any acute hemorrhage. DVT Prophylaxis: On heparin gtt. Discharge Planning Discharge once INR becomes therapeutic. Problem Qualifiers (1) CHF (congestive heart failure): Qualified Code: I50.23 - Acute on chronic systolic congestive heart failure (2) COPD (chronic obstructive pulmonary disease): Qualified Code: J43.9 - Pulmonary emphysema, unspecified emphysema type Josh Ogden MD January 21, 2017 14:15
[2017-01-21] MEDS: MORPHINE SULFATE 4 MG/ML INJ IV PUSH PRN ×2 (14:34→20:29)
[2017-01-21] MEDS: WARFARIN SOD 10 MG TAB PO SCH (17:45)
[2017-01-22] VITALS (7 sets, daily range): BP systolic 106–124; BP diastolic 57–72; PULSE 95–103; RESP 16–18; TEMP 97.7–98.7; O2SAT 94–100
[2017-01-22] MEDS: CEPHALEXIN MONOHYDRATE 500 MG CAP PO SCH ×3 (04:24→18:12)
[2017-01-22] MEDS: ACETAMINOPHEN/HYDROcodone 325 MG/10 MG TAB PO PRN ×3 (04:24→16:29)
[2017-01-22 06:59] LABS: HEMATOCRIT 31.8 % (39.0-51.0); MEAN CELL VOLUME 81.2 FL (80.0-100.0); MEAN CORPUSCULAR HEMOGLOBIN 26.5 PG (27.0-34.0); MEAN CORPUSCULAR HGB CONC 32.6 % (32.0-36.0); PLATELET COUNT 216 TH/MM3 (150-450); RED BLOOD COUNT 3.92 MIL/MM3 (4.50-5.90); RED CELL DISTRIBUTION WIDTH 16.3 % (11.6-17.2); REVIEW FLAG FINAL; WHITE BLOOD COUNT 9.4 TH/MM3 (4.0-11.0)
[2017-01-22 07:06] LABS: APTT (PATIENT) 50.2 SEC (24.3-30.1); INTERNATIONAL NORMALIZED RATIO 1.1 RATIO; PROTHROMBIN TIME - PATIENT 12.4 SEC (9.8-11.6)
[2017-01-22] MEDS: MORPHINE SULFATE 4 MG/ML INJ IV PUSH PRN ×3 (08:40→20:37)
[2017-01-22] MEDS: SODIUM CHLORIDE 0.9% FLUSH 10 ML FLUSH IV FLUSH SCH ×2 (08:41→20:24)
--- NOTE | 2017-01-22 08:42 | PD.PN.STU ---
Subjective Remarks abdominal pain/swelling improving right shoulder and right lower back pain due to fall from two nights ago INR 1.1 denies CP, SOB, n/v stable vital signs Objective Vitals GENERAL: Well-developed well-nourished. In no acute distress. SKIN: Warm and dry. RUE with palpable and tender superficial veins. HEENT: Normocephalic. Pupils equal and round. Mucous membranes pink and moist. JVD. CARDIOVASCULAR: Regular rate and rhythm. No murmur appreciated. RESPIRATORY: No accessory muscle use. Crackles at the bases. GASTROINTESTINAL: Abdomen soft, distended, tender to palpation in RLQ. Bowel sounds x4. MUSCULOSKELETAL: No obvious deformities. No clubbing or cyanosis. +1 edema on the right foot and 1+ edema on the left associated with erythema and tenderness on palpation. Thigh is bigger when compared to the right. There is some tenderness and swelling as well as erythema in the first metatarsophalangeal joint. Erythema of left lower extremity seems to be slightly improved from previous day. Tenderness with palpation of right lower back. Normal range of motion of right shoulder. NEUROLOGICAL: Awake and alert. No focal neurological deficits. Moves upper and lower extremities spontaneously. Normal speech. PSYCHIATRIC: Awake and alert. Vital Signs Date Time Temp Pulse Resp B/P Pulse Ox O2 Delivery O2 Flow Rate FiO2 01/22/17 08:00 98.0 95 18 109/65 100 01/22/17 04:00 98.2 103 18 124/68 99 01/22/17 00:00 98.2 96 16 108/71 94 01/21/17 20:23 98.4 101 18 114/73 96 01/21/17 20:00 105 01/21/17 18:57 18 01/21/17 16:00 98.3 89 18 103/69 93 01/21/17 12:00 98.5 90 18 95/51 97 I/O 01/21/17 01/21/17 01/21/17 01/22/17 01/22/17 01/22/17 07:00 15:00 23:00 07:00 15:00 23:00 Intake Total 240 ml 720 ml 240 ml 240 ml Output Total 625 ml 1500 ml 1025 ml 125 ml Balance -385 ml -780 ml -785 ml 115 ml Intake Oral 240 ml 720 ml 240 ml 240 ml Output Urine Total 625 ml 1500 ml 1025 ml 125 ml # Voids 2 # Bowel Movements 1 2 0 1 Result Diagram: 01/22/17 0648 01/18/17 0710 A/P Assessment and Plan (1) CHF (congestive heart failure) ICD Code: I50.9 Status: Resolved (2) COPD (chronic obstructive pulmonary disease) ICD Code: J44.9 Status: Chronic (3) PNA (pneumonia) ICD Code: J18.9 Status: Resolved (4) TRAM (acute kidney injury) ICD Code: N17.9 Status: Resolved (5) Hyperkalemia ICD Code: E87.5 Status: Resolved (6) Right kidney mass ICD Code: N28.89 Status: Acute (7) Hypokalemia ICD Code: E87.6 Status: Resolved (8) Left ventricular thrombosis without [place] ICD Code: I51.3 Status: Acute Assessment and Plan 51-year-old male with a PMH of HTN, COPD, Fibromyalgia, GERD, CHF (Echo 12/28/16 w / EF 20%) who presented w/ complaints of bilateral lower extremity edema and increasing pain Sepsis Present on admission patient with leukocytosis and tachycardia with heart rate 100. Sepsis likely secondary to pneumonia and left lower extremity cellulitis. Continue IV Zosyn and IV vancomycin. WBC seems to be trending down, down to 12.3 from 8.6. 01/17 sepsis resolved. Leukocytosis resolved. Continue antibiotics as per ID. IV antibiotics discontinued. Patient started on po keflex. CHF Acute on chronic systolic CHF. Echo 12/28/16 w/ EF 20%. S/p eval by cardiology on recent admit 12/27-01/09/17 for CHF, pleural effusion s/p thoracentesis and PNA. Presented with chance of breath and edema. CXR w/ small to moderate right -sided pleural effusion and pulmonary venous congestion. - 20 mg IV Lasix BID. - Monitor I/Os. - Started carvedilol. - BRANDON hose for edema. Right shoulder pain - due to fall while in hospital - increase Morphine Lower back pain - due to fall while in hospital - increase Morphine Renal mass/renal cell carcinoma Noted on US and CT. Concerning for renal cell carcinoma. Pt says he knew he had a renal mass but failed to follow up on it. Oncology consult appreciated. - IR consult for renal biopsy. - vitamin K given. - Coumadin changed to heparin gtt. Discussed the case with Dr. Cadet over the phone, he suggests obtaining a urology consultation to obtain a most definitive treatment. Biopsy could be done at the time of definitive treatment. 01/16 urology consulted. Appreciate recommendations. MRI of the abdomen requested. Showed heterogeneous solid right renal mass centered in the mid pole. No enlarged lymph nodes. Ascites and right pleural effusion. As per urology recommendations nephrectomy will have to be pursued after the patient is taken off of anticoagulation as an outpatient. Hospital-acquired pneumonia CXR w/ RLL infiltrate. Afebrile, WBC 13. Productive cough. Recently hospitalized. - Continue IV Abx. Continue IV vancomycin and IV Zosyn for possible HCAP. - oxygen and DuoNebs prn. TRAM Resolved after IV fluid administration. Continue to monitor BUN/creatinine and Mr. I's and O's. Avoid nephrotoxins Left Ventricular Thrombus Seen on recent echocardiogram. 01/16 I will continue heparin drip and resume Coumadin for an INR goal of 2-3. 01/19 INR 1.1. dosing as per pharmacy. Continue heparin gtt bridge to Coumadin. Called and spoke with pharmacist so that we could get the patient therapeutic in a shorter time. 01/20 INR 1.2 Abdominal pain and distention Positive fluid wave. Elevated LFTs, new finding. Ultrasound and CT with ascites. Albumin 3. Hepatitis panel negative. Gastroenterology consult appreciated. - follow up with GI. - trend LFTs. - ammonia level elevated. Started lactulose - monitor ammonia level. - sp abdominal paracentesis. Peritoneal fluid analysis does not look infectious. Has 397 WBCs, with 868 RBCs. - 01/21 U/S did not reveal enough fluid for paracentesis - 01/22 swelling improving, pain improving Thrombosis of the cephalic vein Noted on US. Continue Heparin drip, continue bridge to Coumadin - subtherapeutic inr of 1.1. Pharmacy helping with dosing. Hyperkalemia resolved after treatment with Kayexalate. Hypokalemia Potassium replaced. Potassium level now 4.0. Continue to monitor BMP. Scrotal edema Due to Anasarca - continue with diuresis. Seems to be slowly improving LLE Cellulitis - Continue IV Vancomycin and IV Zosyn - 01/15 MRI of the left lower extremity shows cellulitis without evidence of osteomyelitis. Left lotion with Doppler ultrasound ruled out DVT. Will consult infectious disease to help with antibiotic management. 01/17 appreciate ID recommendations - IV antibiotics discontinued - On Keflex. 01/22 Improving Acute gouty attack - right foot has tender inflamed first metatarsophalangeal joint, concurrent with gout. 01/16 patient status post treatment with oral colchicine. Uric acid 6.0. 01/19 Resolved. will start patient on allopurinol. DVT Prophylaxis: On heparin gtt. Discharge Planning Continue to monitor on the medical floor. Patient cannot be discharged until INR above 2. Shaun Hooks M3 January 22, 2017 08:42
[2017-01-22] MEDS: GABAPENTIN 300 MG CAP PO SCH ×3 (08:44→18:07)
[2017-01-22] MEDS: CARVEDILOL 3.125 MG TAB PO SCH ×2 (08:44→20:22)
[2017-01-22] MEDS: SPIRONOLACTONE 25 MG TAB PO SCH (08:44)
[2017-01-22] MEDS: FUROSEMIDE 40 MG TAB PO SCH (08:45)
[2017-01-22] MEDS: ALLOPURINOL 300 MG TAB PO SCH (08:45)
[2017-01-22] MEDS: LACTULOSE SYRUP 20 GM/30 ML CUP PO SCH (08:53)
[2017-01-22] MEDS: POLYETHYLENE GLYCOL 17 GM PKG PO SCH ×2 (08:53→20:23)
--- NOTE | 2017-01-22 11:27 | RADRPT ---
EXAM DATE/TIME: 01/22/2017 11:06 [facility] COMPARISON: No previous studies available for comparison. INDICATIONS : Pain in pelvis and right hip since falling 2 days ago MEDICAL HISTORY : Osteoporosis. Arthritis. SURGICAL HISTORY : left knee ENCOUNTER: Subsequent ACUITY: 2 days PAIN SCORE: 10/10 LOCATION: Bilateral pelvis FINDINGS: A single frontal view of the pelvis demonstrates no evidence of fracture. The bony pelvic ring is in tact. Bony mineralization is normal. The soft tissues are intact. CONCLUSION: Unremarkable examination of the pelvis. Raphael Oliveira MD on January 22, 2017 at 11:24 Board Certified Radiologist. This report was verified electronically.
--- NOTE | 2017-01-22 11:28 | RADRPT ---
EXAM DATE/TIME: 01/22/2017 11:10 [facility] COMPARISON: No previous studies available for comparison. INDICATIONS : Right shoulder pain since falling 2 days ago. MEDICAL HISTORY : Osteoporosis. Arthritis. fibromyalgia SURGICAL HISTORY : left knee, paracentesis ENCOUNTER: Subsequent ACUITY: 2 days PAIN SCORE: 10/10 LOCATION: Right shoulder FINDINGS: Two view examination of the right shoulder demonstrates no evidence of fracture or dislocation. The glenohumeral and acromioclavicular joints are maintained. Bony mineralization is normal. CONCLUSION: Unremarkable limited examination of the right shoulder. Raphael Oliveira MD on January 22, 2017 at 11:26 Board Certified Radiologist. This report was verified electronically.
--- NOTE | 2017-01-22 12:23 | RADRPT ---
EXAM DATE/TIME: 01/22/2017 12:00 [facility] COMPARISON: No previous studies available for comparison. INDICATIONS : Abscess. MEDICAL HISTORY : Congestive heart failure. Arthritis. Osteoporosis. Migraines. Asthma. Sleep apnea. Dyspnea. GERD. Fib romyalgia. Left kidney mass. Depression. SURGICAL HISTORY : Left knee. Paracentesis. ENCOUNTER: Initial ACUITY: 1 day PAIN SCORE: 2/10 LOCATION: Right lower quadrant AREA EVALUATED: Lateral right lower quadrant TECH NOTE: FINDINGS: MASSES: None. FLUID COLLECTIONS: Soft tissue edema present in the anterior abdominal wall OTHER: Negative. CONCLUSION: 1. Soft tissue edema in the anterior abdominal wall right lower quadrant laterally without discrete o r loculated fluid to suggest abscess. Raphael lOiveira MD on January 22, 2017 at 12:20 Board Certified Radiologist. This report was verified electronically.
--- NOTE | 2017-01-22 15:14 | HHI.IDPN ---
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 Vital Signs Date Time Temp Pulse Resp B/P Pulse Ox O2 Delivery O2 Flow Rate FiO2 01/22/17 12:00 97.7 96 18 122/57 97 01/22/17 08:00 98.0 95 18 109/65 100 01/22/17 07:59 96 01/22/17 04:00 98.2 103 18 124/68 99 01/22/17 00:00 98.2 96 16 108/71 94 01/21/17 20:23 98.4 101 18 114/73 96 01/21/17 20:00 105 01/21/17 18:57 18 01/21/17 16:00 98.3 89 18 103/69 93 01/21/17 01/21/17 01/22/17 15:00 23:00 07:00 Intake Total 720 ml 240 ml 240 ml Output Total 1500 ml 1025 ml 125 ml Balance -780 ml -785 ml 115 ml Intake Oral 720 ml 240 ml 240 ml Output Urine Total 1500 ml 1025 ml 125 ml # Voids 2 # Bowel Movements 2 0 1 . Laboratory Tests Test 01/22/17 06:48 White Blood Count 9.4 TH/MM3 Red Blood Count 3.92 MIL/MM3 Hemoglobin 10.4 GM/DL Hematocrit 31.8 % Mean Corpuscular Volume 81.2 FL Mean Corpuscular Hemoglobin 26.5 PG Mean Corpuscular Hemoglobin 32.6 % Concent Red Cell Distribution Width 16.3 % Platelet Count 216 TH/MM3 Mean Platelet Volume 9.2 FL Laboratory Tests Test 01/20/17 18:00 Lactate Dehydrogenase 308 U/L Total Protein 7.5 GM/DL Imaging Head CT 01/20/17 0000 Signed Impressions: Service Date/Time: Friday, January 20, 2017 01:51 - CONCLUSION: Unremarkable study. Letty Dee MD Abdomen MRI 01/16/17 0000 Signed Impressions: Service Date/Time: Monday, January 16, 2017 10:37 - CONCLUSION: 1. Heterogeneous solid right renal mass centered in the mid pole again seen. No enlarged lymph nodes identified. 2. Ascites and right pleural effusion again noted. 3. Nonspecific diffuse wall thickening of nondistended bladder may be due to hypoalbuminemia. Jose J Emery MD Lower Extremity Ultrasound 01/15/17 0000 Signed Impressions: Service Date/Time: Sunday, January 15, 2017 09:50 - CONCLUSION: 1. No evidence of deep venous thrombosis. Andrew Dennis MD Foot MRI 01/15/17 0000 Signed Impressions: Service Date/Time: Sunday, January 15, 2017 11:08 - CONCLUSION: 1. Cellulitis without evidence of osteomyelitis Andrew Dennis MD Cyst Biopsy Asp-Paracentesis US 01/14/17 0600 Signed Impressions: Service Date/Time: December 08:47 - CONCLUSION: Uncomplicated ultrasound guided paracentesis. Andrew Dennis MD Upper Extremity Ultrasound 01/11/17 0000 Signed Impressions: Service Date/Time: Wednesday, January 11, 2017 09:38 - CONCLUSION: 1. Thrombosis of the cephalic vein. The remainder of the venous system of the right upper extremity is widely patent. Josh Cadet MD Abdomen/Pelvis CT 01/11/17 0000 Signed Impressions: Service Date/Time: Wednesday, January 11, 2017 18:34 - CONCLUSION: 1. Large amount of abdominal ascites. 2. Solid mass right mid kidney concerning for renal cell carcinoma. 3. Small right pleural effusion. 4. Anasarca. Mariano Oakley MD Abdomen Ultrasound 01/11/17 0000 Signed Impressions: Service Date/Time: Wednesday, January 11, 2017 14:15 - CONCLUSION: There is no significant ascites evident. Dru Cadet MD FACR Chest X-Ray 01/10/17 0000 Signed Impressions: Service Date/Time: Tuesday, January 10, 2017 03:18 - CONCLUSION: 1. Small to moderate right-sided pleural effusion. 2. Right lower lung infiltrate 3. Pulmonary venous congestion. August Elmore MD Physical Exam GENERAL: awake and alert, not in respiratory distress SKIN: Warm and dry. No generalized rash HEAD: Atraumatic. Normocephalic. No temporal wasting, or tenderness. EYES: [place] conjunctiva. No petechia or hemorrhage. No scleral icterus. No injection or drainage. EARS, NOSE AND THROAT: Nose without bleeding or purulent nasal discharge. Mucous membranes pink and moist. No oral lesions noted. NECK: Trachea midline. Supple and not tender, no meningeal signs CARDIOVASCULAR: Regular rate and rhythm. No murmurs, rubs or gallops heard RESPIRATORY: Clear to auscultation, decreased at the right base. Has decreased vocal fremitus. Breath sounds equal bilaterally. No rales, wheezing or rhonchi ABDOMEN: Soft, slightly globular, non-tender, nondistended. Bowel sounds present and normoactive. No guarding. No rebound. No organomegaly.Area of induration on R side, mostly dependent, min redness EXTREMITIES: No clubbing, cyanosis. Has edema BLE, with mild erythema in distal L leg, with small superificial ulcers scattered. No crepitus. No calf tenderness. Well perfused and warm. NEUROLOGICAL: Non-focal. PSYCHIATRIC: Normal affect, calm and cooperative. LINE: No evidence of infection Assessment & Plan Remarks IMPRESSION Cellulitis LLE, mild Biventricular heart failure, has known LV thrombus COPD with cor pulmonale - clinically no evidence of PNA Abnormal LFT likely due to R sided failure, hepatic congestion better R renal mass RECOMMENDATION Give 7 days keflex - end date 01/24 Edema control - Rx CHF, plus leg elevation and BRANDON stocking - Explained use of stockings and leg elevation to patient patient advised to do multiple turns so the swelling will improve He is clinically stable from ID standpoint Elicia Tello MD January 22, 2017 15:14
[2017-01-22] MEDS: WARFARIN SOD 10 MG TAB PO SCH (16:23)
[2017-01-22] MEDS: HEPARIN-D5W INJ 250 ML IV SCH (16:27)
--- NOTE | 2017-01-22 21:02 | HHI.PR ---
Subjective Remarks deferred entry - patient seen early at 10 am Patient c/o pain in left shoulder and also on left hip after fall that is worst c/o edema on left side of abdomen which is mildly tender denies fevers/chills denies cough/sob/cp stable vital signs Objective Vitals Vital Signs Date Time Temp Pulse Resp B/P Pulse Ox O2 Delivery O2 Flow Rate FiO2 01/22/17 16:00 98.7 99 18 106/69 100 01/22/17 16:00 Room Air 01/22/17 12:00 97.7 96 18 122/57 97 01/22/17 12:00 Room Air 01/22/17 08:00 98.0 95 18 109/65 100 01/22/17 08:00 Room Air 01/22/17 07:59 96 01/22/17 04:00 98.2 103 18 124/68 99 01/22/17 00:00 98.2 96 16 108/71 94 I/O 01/21/17 01/21/17 01/21/17 01/22/17 01/22/17 01/22/17 07:00 15:00 23:00 07:00 15:00 23:00 Intake Total 240 ml 720 ml 240 ml 240 ml 480 ml Output Total 625 ml 1500 ml 1025 ml 125 ml 900 ml Balance -385 ml -780 ml -785 ml 115 ml -420 ml Intake Oral 240 ml 720 ml 240 ml 240 ml 480 ml Output Urine Total 625 ml 1500 ml 1025 ml 125 ml 900 ml # Voids 2 # Bowel Movements 1 2 0 1 0 Result Diagram: 01/22/17 0648 01/18/17 0710 Objective Remarks GENERAL: Well-developed well-nourished. In no acute distress. SKIN: Warm and dry. RUE with palpable and tender superficial veins. HEENT: Normocephalic. Pupils equal and round. Mucous membranes pink and moist. JVD. CARDIOVASCULAR: Regular rate and rhythm. No murmur appreciated. RESPIRATORY: No accessory muscle use. Crackles at the bases. GASTROINTESTINAL: Abdomen soft, non-tender,non distended. Bowel sounds x4. there is induration with mild tenderness on left side of the abdomen and mild erythema which is blanching. MUSCULOSKELETAL: No obvious deformities. No clubbing or cyanosis. +2 edema on the right foot and 2+ edema on the left associated with erythema and tenderness on palpation. Thigh is bigger when compared to the right. There is some tenderness and swelling as well as erythema in the first metatarsophalangeal joint. Erythema of left lower extremity seems to be slightly improved from previous day. NEUROLOGICAL: Awake and alert. No focal neurological deficits. Moves upper and lower extremities spontaneously. Normal speech. PSYCHIATRIC: Awake and alert. Procedures sp Abdominal paracentesis 01/14/17 Medications and IVs Current Medications Medications (Trade) Dose Ordered Sig/Vishal Route Start Time Stop Time Status Last Admin (NS Flush) 2 ml UNSCH PRN IV FLUSH 01/10/17 04:45 (NS Flush) 2 ml BID IV FLUSH 01/10/17 09:00 01/22/17 20:24 (Zofran Inj) 4 mg Q6H PRN IVP 01/10/17 04:45 01/11/17 04:15 (Dulcolax Supp) 10 mg DAILY PRN RECTAL 01/10/17 04:45 (Tylenol) 650 mg Q6H PRN PO 01/10/17 04:45 (Neurontin) 900 mg TID PO 01/10/17 09:00 01/22/17 18:07 (Gerton 10-325 Mg) 1 tab Q6H PRN PO 01/11/17 07:43 01/22/17 16:29 (Coreg) 3.125 mg Q12HR PO 01/11/17 09:00 01/22/17 20:22 (Miralax) 17 gm BID PO 01/11/17 11:30 01/19/17 08:02 Lactulose 30 ml 30 ml DAILY PO 01/12/17 12:15 01/20/17 09:34 (Heparin-D5W Inj) 250 ml @ 0 mls/hr TITRATE IV 01/13/17 02:00 01/22/17 16:27 (Morphine Inj) 2 mg Q3H PRN IV PUSH 01/15/17 12:30 01/22/17 20:37 (Keflex) 500 mg Q8H PO 01/17/17 11:00 01/24/17 10:59 01/22/17 18:12 (Zyloprim) 300 mg DAILY PO 01/19/17 16:00 01/22/17 08:45 (Coumadin) 10 mg DAILY@16 PO 01/21/17 16:00 01/22/17 16:23 (Lasix) 40 mg DAILY PO 01/22/17 09:00 01/22/17 08:45 (Aldactone) 25 mg DAILY PO 01/22/17 09:00 01/22/17 08:44 A/P Problem List: (1) CHF (congestive heart failure) ICD Code: I50.9 Status: Resolved (2) COPD (chronic obstructive pulmonary disease) ICD Code: J44.9 Status: Chronic (3) PNA (pneumonia) ICD Code: J18.9 Status: Resolved (4) TRAM (acute kidney injury) ICD Code: N17.9 Status: Resolved (5) Hyperkalemia ICD Code: E87.5 Status: Resolved (6) Right kidney mass ICD Code: N28.89 Status: Acute (7) Hypokalemia ICD Code: E87.6 Status: Resolved (8) Left ventricular thrombosis without ND ICD Code: I51.3 Status: Acute Assessment and Plan 51-year-old male with a PMH of HTN, COPD, Fibromyalgia, GERD, CHF (Echo 12/28/16 w / EF 20%) who presented w/ complaints of bilateral lower extremity edema and increasing pain Sepsis Present on admission patient with leukocytosis and tachycardia with heart rate 100. Sepsis likely secondary to pneumonia and left lower extremity cellulitis. Continue IV Zosyn and IV vancomycin. WBC seems to be trending down, down to 12.3 from 8.6. 01/17 sepsis resolved. Leukocytosis resolved. Continue antibiotics as per ID. IV antibiotics discontinued. Patient started on po keflex. CHF Acute on chronic systolic CHF. Echo 12/28/16 w/ EF 20%. S/p eval by cardiology on recent admit 12/27-01/09/17 for CHF, pleural effusion s/p thoracentesis and PNA. Presented with chance of breath and edema. CXR w/ small to moderate right -sided pleural effusion and pulmonary venous congestion. - 20 mg IV Lasix BID. - Monitor I/Os. - Started carvedilol. - BRANDON hose for edema. Renal mass/renal cell carcinoma Noted on US and CT. Concerning for renal cell carcinoma. Pt says he knew he had a renal mass but failed to follow up on it. Oncology consult appreciated. - IR consult for renal biopsy. - vitamin K given. - Coumadin changed to heparin gtt. Discussed the case with Dr. Cadet over the phone, he suggests obtaining a urology consultation to obtain a most definitive treatment. Biopsy could be done at the time of definitive treatment. 01/16 urology consulted. Appreciate recommendations. MRI of the abdomen requested. Showed heterogeneous solid right renal mass centered in the mid pole. No enlarged lymph nodes. Ascites and right pleural effusion. As per urology recommendations nephrectomy will have to be pursued after the patient is taken off of anticoagulation as an outpatient. Hospital-acquired pneumonia CXR w/ RLL infiltrate. Afebrile, WBC 13. Productive cough. Recently hospitalized. - Continue IV Abx. Continue IV vancomycin and IV Zosyn for possible HCAP. - oxygen and DuoNebs prn. TRAM Resolved after IV fluid administration. Continue to monitor BUN/creatinine and Mr. I's and O's. Avoid nephrotoxins Left Ventricular Thrombus Seen on recent echocardiogram. 01/16 I will continue heparin drip and resume Coumadin for an INR goal of 2-3. 01/19 INR 1.1. dosing as per pharmacy. Continue heparin gtt bridge to Coumadin. Called and spoke with pharmacist so that we could get the patient therapeutic in a shorter time. 01/20 Hold Coumadin for Us guided abdominal paracentesis. 01/21 Continue heparin bridge to Coumadin - Goal INR 2 to 3. Ascites/abdominal distention Likely secondary to congestive hepatopathy. Hepatitis panel negative. Gi consulted. - follow up with GI. - trend LFTs. - ammonia level elevated. Started lactulose - monitor ammonia level. - sp abdominal paracentesis. Peritoneal fluid analysis does not look infectious. Has 397 WBCs, with 868 RBCs. 01/20 Abdomen looks more distended will order another us guided abdominal paracentesis. 01/21 Abdominal US does not show enough fluid to be drained. Will resume Coumadin. Will give Coumadin 10 mg daily. Monitor PT/INR. 01/22 discussed case with showcase trimmer - will DC patient on Xarelto. Thrombosis of the cephalic vein Noted on US. On heparin gtt - will Dc home on Xarelto. Hyperkalemia resolved after treatment with Kayexalate. Hypokalemia Potassium replaced. Potassium level normal. Continue to monitor BMP. Scrotal edema Due to Anasarca - continue with diuresis. Seems to be slowly improving LLE Cellulitis - Initially treated IV Vancomycin and IV Zosyn. 01/15 MRI of the left lower extremity shows cellulitis without evidence of osteomyelitis. Left lotion with Doppler ultrasound ruled out DVT. Will consult infectious disease to help with antibiotic management. 01/17 appreciate ID recommendations - IV antibiotics discontinued - On Keflex. Acute gouty attack - right foot has tender inflamed first metatarsophalangeal joint, concurrent with gout. sp treatment with colchicine now resolved. Started on Allopurinol. continue. Sp Fall Patient fell and hit his head on 01/19 and sustained a laceration on his forehead. CT of the head obtained after the fall did not show any acute hemorrhage. 01/22 Patient c/o pain in left scapula and also on palpation of left pelvis. will order Left shoulder and pelvis x ray. Edema of abdominal wall Check us of left side of abdomen r/o abscess or fluid collection. DVT Prophylaxis: On heparin gtt. Discharge Planning Possible DC in am pending x rays. Problem Qualifiers (1) CHF (congestive heart failure): Qualified Code: I50.23 - Acute on chronic systolic congestive heart failure (2) COPD (chronic obstructive pulmonary disease): Qualified Code: J43.9 - Pulmonary emphysema, unspecified emphysema type Josh Ogden MD January 22, 2017 21:02
[2017-01-23] VITALS (7 sets, daily range): BP systolic 100–113; BP diastolic 62–72; PULSE 92–108; RESP 18–19; TEMP 97.4–98.9; O2SAT 95–98
[2017-01-23] MEDS: ACETAMINOPHEN/HYDROcodone 325 MG/10 MG TAB PO PRN ×2 (02:01→12:33)
[2017-01-23] MEDS: CEPHALEXIN MONOHYDRATE 500 MG CAP PO SCH ×2 (02:02→12:32)
[2017-01-23] MEDS: MORPHINE SULFATE 4 MG/ML INJ IV PUSH PRN ×3 (04:07→16:00)
[2017-01-23 08:35] LABS: APTT (PATIENT) 43.6 SEC (24.3-30.1); INTERNATIONAL NORMALIZED RATIO 1.3 RATIO; PROTHROMBIN TIME - PATIENT 14.1 SEC (9.8-11.6)
[2017-01-23] MEDS: ALLOPURINOL 300 MG TAB PO SCH (08:56)
[2017-01-23] MEDS: GABAPENTIN 300 MG CAP PO SCH ×2 (08:56→12:32)
[2017-01-23] MEDS: LACTULOSE SYRUP 20 GM/30 ML CUP PO SCH (08:56)
[2017-01-23] MEDS: SPIRONOLACTONE 25 MG TAB PO SCH (08:56)
[2017-01-23] MEDS: SODIUM CHLORIDE 0.9% FLUSH 10 ML FLUSH IV FLUSH SCH (08:56)
[2017-01-23] MEDS: FUROSEMIDE 40 MG TAB PO SCH (08:56)
[2017-01-23] MEDS: POLYETHYLENE GLYCOL 17 GM PKG PO SCH (08:58)
[2017-01-23] MEDS: CARVEDILOL 3.125 MG TAB PO SCH (09:00)
[2017-01-23] MEDS ORDERED: ALLO300 PO ×2 (13:20→13:48)
[2017-01-23] MEDS ORDERED: CEPH500C PO (13:20)
[2017-01-23] MEDS ORDERED: SPIR25 PO (13:34)
[2017-01-23] MEDS ORDERED: XARE20TA PO (13:34)
[2017-01-23] MEDS ORDERED: HYDR-3583 PO (13:34)
[2017-01-23] MEDS ORDERED: FURO40TA PO (13:34)
[2017-01-23] MEDS ORDERED: CARV3.125 PO (13:34)
--- NOTE | 2017-01-23 13:40 | HHI.DCPOC ---
Discharge Care Plan Diagnosis: (1) PNA (pneumonia) (2) CHF (congestive heart failure) (3) Left ventricular thrombosis without TX (4) Right kidney mass (5) Abnormal LFTs (liver function tests) (6) Constipation (7) Abdominal pain (8) TRAM (acute kidney injury) (9) COPD (chronic obstructive pulmonary disease) (10) HTN (hypertension) Goals to Promote Your Health * To prevent worsening of your condition and complications * To maintain your health at the optimal level Directions to Meet Your Goals Take your medications as prescribed Follow your dietary instruction Follow activity as directed Keep your appointments as scheduled Take your immunizations and boosters as scheduled If your symptoms worsen call your PCP, if no PCP go to Urgent Care Center or Emergency Room Smoking is Dangerous to Your Health. Avoid second hand smoke Call the 24-hour hour crisis hotline for domestic abuse at Josh Ogden MD January 23, 2017 13:40
--- NOTE | 2017-01-23 13:45 | HHI.DS ---
Discharge Summary Admission Date January 11, 2017 at 13:12 Discharge Date: January 23, 2017 Admitting Diagnosis (1) CHF (congestive heart failure) ICD Code: I50.9 Diagnosis: Principal (2) COPD (chronic obstructive pulmonary disease) ICD Code: J44.9 Diagnosis: Principal (3) PNA (pneumonia) ICD Code: J18.9 Diagnosis: Principal (4) TRAM (acute kidney injury) ICD Code: N17.9 Diagnosis: Principal (5) Hyperkalemia ICD Code: E87.5 Diagnosis: Principal (6) Right kidney mass ICD Code: N28.89 Diagnosis: Principal (7) Hypokalemia ICD Code: E87.6 Diagnosis: Principal (8) Left ventricular thrombosis without CT ICD Code: I51.3 Diagnosis: Principal Procedures sp Abdominal paracentesis 01/14/17 Brief History - From Admission This is a 51-year-old male with a PMH of HTN, COPD, Fibromyalgia, GERD, CHF ( Echo 12/28/16 w/ EF 20%) who presented to the ER w/ complaints of bilateral lower extremity edema and increasing pain.Recent admit 12/27-01/09/17 for CHF, PNA, Pleural Effusion s/p Thoracentesis and Left Ventricular Thrombosis on chronic anticoagulation w/ Coumadin. DC'd yesterday afternoon, however states did not receive prescription for pain medication and at this time returns with increasing lower extremity pain. Per review of discharge records, pt prescribed Hydrocodone/Acetaminophen 10/325 #10. Also reports progressive SOB and lower extremity edema since discharge yesterday. On arrival, BP 138/61, HR 105, O2 sat 100% on RA, Afebrile. WBC 13.7. K+ 5.4, repeat pending. Creatinine 1.62, previously 0.92 on 01/06/17. INR therapeutic at 2.1. CXR with small to moderate right-sided pleural effusion, right lower lung infiltrate and pulmonary venous congestion. S/p DuoNeb in ER w/ some improvement. CBC/BMP: 01/22/17 0648 Significant Findings Laboratory Tests Test 01/20/17 01/20/17 01/21/1701/21/17 18:00 18:08 00:20 06:44 Lactate Dehydrogenase 308 U/L (87-241) Activated Partial 47.8 SEC 42.5 SEC 49.9 SEC Thromboplast Time (24.3-30.1) (24.3-30.1) (24.3-30.1) Prothrombin Time 12.8 SEC (9.8-11.6) Test 01/22/17 01/23/17 06:48 07:27 Red Blood Count 3.92 MIL/MM3 (4.50-5.90) Hemoglobin 10.4 GM/DL (13.0-17.0) Hematocrit 31.8 % (39.0-51.0) Mean Corpuscular Hemoglobin 26.5 PG (27.0-34.0) Prothrombin Time 12.4 SEC 14.1 SEC (9.8-11.6) (9.8-11.6) Activated Partial 50.2 SEC 43.6 SEC Thromboplast Time (24.3-30.1) (24.3-30.1) Imaging Last Impressions Soft Tissue Ultrasound 01/22/17 0000 Signed Impressions: Service Date/Time: Sunday, January 22, 2017 12:00 - CONCLUSION: 1. Soft tissue edema in the anterior abdominal wall right lower quadrant laterally without discrete or loculated fluid to suggest abscess. Raphael Oliveira MD Shoulder X-Ray 01/22/17 0000 Signed Impressions: Service Date/Time: Sunday, January 22, 2017 11:10 - CONCLUSION: Unremarkable limited examination of the right shoulder. Raphael Oliveira MD Pelvis X-Ray 01/22/17 0000 Signed Impressions: Service Date/Time: Sunday, January 22, 2017 11:06 - CONCLUSION: Unremarkable examination of the pelvis. Raphael Oliveira MD Abdomen Ultrasound 01/21/17 0000 Signed Impressions: Service Date/Time: December 09:51 - CONCLUSION: 1. Mild ascites is noted, insufficient for safe paracentesis. Raphael Oliveira MD Head CT 01/20/17 0000 Signed Impressions: Service Date/Time: Friday, January 20, 2017 01:51 - CONCLUSION: Unremarkable study. Letty Dee MD Abdomen MRI 01/16/17 0000 Signed Impressions: Service Date/Time: Monday, January 16, 2017 10:37 - CONCLUSION: 1. Heterogeneous solid right renal mass centered in the mid pole again seen. No enlarged lymph nodes identified. 2. Ascites and right pleural effusion again noted. 3. Nonspecific diffuse wall thickening of nondistended bladder may be due to hypoalbuminemia. Jose J Emery MD Lower Extremity Ultrasound 01/15/17 0000 Signed Impressions: Service Date/Time: Sunday, January 15, 2017 09:50 - CONCLUSION: 1. No evidence of deep venous thrombosis. Andrew Dennis MD Foot MRI 01/15/17 0000 Signed Impressions: Service Date/Time: Sunday, January 15, 2017 11:08 - CONCLUSION: 1. Cellulitis without evidence of osteomyelitis Andrew Dennis MD Cyst Biopsy Asp-Paracentesis US 01/14/17 0600 Signed Impressions: Service Date/Time: December 08:47 - CONCLUSION: Uncomplicated ultrasound guided paracentesis. Andrew Dennis MD Upper Extremity Ultrasound 01/11/17 0000 Signed Impressions: Service Date/Time: Wednesday, January 11, 2017 09:38 - CONCLUSION: 1. Thrombosis of the cephalic vein. The remainder of the venous system of the right upper extremity is widely patent. Josh Cadet MD Abdomen/Pelvis CT 01/11/17 0000 Signed Impressions: Service Date/Time: Wednesday, January 11, 2017 18:34 - CONCLUSION: 1. Large amount of abdominal ascites. 2. Solid mass right mid kidney concerning for renal cell carcinoma. 3. Small right pleural effusion. 4. Anasarca. Mariano Oakley MD Chest X-Ray 01/10/17 0000 Signed Impressions: Service Date/Time: Tuesday, January 10, 2017 03:18 - CONCLUSION: 1. Small to moderate right-sided pleural effusion. 2. Right lower lung infiltrate 3. Pulmonary venous congestion. August Elmore MD PE at Discharge GENERAL: Well-developed well-nourished. In no acute distress. SKIN: Warm and dry. RUE with palpable and tender superficial veins. HEENT: Normocephalic. Pupils equal and round. Mucous membranes pink and moist. JVD. CARDIOVASCULAR: Regular rate and rhythm. No murmur appreciated. RESPIRATORY: No accessory muscle use. Crackles at the bases. GASTROINTESTINAL: Abdomen soft, non-tender,non distended. Bowel sounds x4. there is induration with mild tenderness on left side of the abdomen and mild erythema which is blanching. MUSCULOSKELETAL: No obvious deformities. No clubbing or cyanosis. +2 edema on the right foot and 2+ edema on the left associated with erythema and tenderness on palpation. Thigh is bigger when compared to the right. There is some tenderness and swelling as well as erythema in the first metatarsophalangeal joint. Erythema of left lower extremity seems to be slightly improved from previous day. NEUROLOGICAL: Awake and alert. No focal neurological deficits. Moves upper and lower extremities spontaneously. Normal speech. PSYCHIATRIC: Awake and alert. Pt update on day of discharge Denies cp/sob. Edema is much improved. Hospital Course 51-year-old male with a PMH of HTN, COPD, Fibromyalgia, GERD, CHF (Echo 12/28/16 w / EF 20%) who presented w/ complaints of bilateral lower extremity edema and increasing pain Sepsis Present on admission patient with leukocytosis and tachycardia with heart rate 100. Sepsis likely secondary to pneumonia and left lower extremity cellulitis. Treated with IV broad spectrum antibiotics - IV Zosyn and IV Vancomycin. WBC monitored - resolved. Blood and urine cultures negative. 01/17 sepsis resolved. Leukocytosis resolved. Continue antibiotics as per ID. IV antibiotics discontinued. Patient started on po keflex. CHF Acute on chronic systolic CHF. Echo 12/28/16 w/ EF 20%. S/p eval by cardiology on recent admit 12/27-01/09/17 for CHF, pleural effusion s/p thoracentesis and PNA. Presented with SOB and edema. CXR w/ small to moderate right-sided pleural effusion and pulmonary venous congestion. - Treated with IV Lasix 20 mg po BID. - Monitor I/Os. - Started carvedilol. - BRANDON hose for edema. Renal mass/renal cell carcinoma Noted on US and CT. Concerning for renal cell carcinoma. Pt says he knew he had a renal mass but failed to follow up on it. Oncology was consulted. - IR consult for renal biopsy. - vitamin K given. - Coumadin changed to heparin gtt. Discussed the case with Dr. Cadet over the phone, he suggests obtaining a urology consultation to obtain a most definitive treatment. Biopsy could be done at the time of definitive treatment. 01/16 urology consulted. MRI of the abdomen requested. Showed heterogeneous solid right renal mass centered in the mid pole. No enlarged lymph nodes. Ascites and right pleural effusion. As per urology recommendations nephrectomy will have to be pursued after the patient is taken off of anticoagulation as an outpatient. Hospital-acquired pneumonia CXR w/ RLL infiltrate. Afebrile, WBC 13. Productive cough. Recently hospitalized. - Continue IV Abx. Continue IV vancomycin and IV Zosyn for possible HCAP. - oxygen and DuoNebs prn. TRAM Resolved after IV fluid administration. Continue to monitor BUN/creatinine and Mr. I's and O's. Avoid nephrotoxins Left Ventricular Thrombus Seen on recent echocardiogram. 01/16 heparin drip and resume Coumadin for an INR goal of 2-3. 01/19 INR 1.1. dosing as per pharmacy. Continue heparin gtt bridge to Coumadin. Called and spoke with pharmacist so that we could get the patient therapeutic in a shorter time. 01/20 Hold Coumadin for Us guided abdominal paracentesis. 01/21 Continue heparin bridge to Coumadin - Goal INR 2 to 3. Ascites/abdominal distention Likely secondary to congestive hepatopathy. Hepatitis panel negative. Gi consulted. - follow up with GI. - trend LFTs. - ammonia level elevated. Started lactulose - monitor ammonia level. - sp abdominal paracentesis. Peritoneal fluid analysis does not look infectious. Has 397 WBCs, with 868 RBCs. 01/20 Abdomen looks more distended will order another us guided abdominal paracentesis. 01/21 Abdominal US did not show enough fluid to be drained. Will resume Coumadin. Will give Coumadin 10 mg daily. Monitor PT/INR. 01/22 discussed case with heel caser - will DC patient on Xarelto. Thrombosis of the cephalic vein Noted on US. On heparin gtt - will Dc home on Xarelto. Hyperkalemia resolved after treatment with Kayexalate. Hypokalemia Potassium replaced. Potassium level normal. Continue to monitor BMP. Scrotal edema Due to Anasarca - continue with diuresis. Seems to be slowly improving LLE Cellulitis - Initially treated IV Vancomycin and IV Zosyn. 01/15 MRI of the left lower extremity shows cellulitis without evidence of osteomyelitis. Left lotion with Doppler ultrasound ruled out DVT. Will consult infectious disease to help with antibiotic management. 5/21 appreciate ID recommendations - IV antibiotics discontinued - On Keflex. Acute gouty attack - right foot has tender inflamed first metatarsophalangeal joint, concurrent with gout. sp treatment with colchicine now resolved. Started on Allopurinol. continue. Sp Fall Patient fell and hit his head on 01/19 and sustained a laceration on his forehead. CT of the head obtained after the fall did not show any acute hemorrhage. 01/22 Patient c/o pain in left scapula and also on palpation of left pelvis. will order Left shoulder and pelvis x ray which were all negative Edema of abdominal wall Checked us of left side of abdomen r/o abscess or fluid collection. Soft tissue US showed edema but no collesction. Likely dependent edema as patient favors leaning over that side when lying down. DVT Prophylaxis: On heparin gtt. Pt Condition on Discharge: Stable Discharge Disposition: Discharge Home Discharge Time: > 30 minutes Discharge Instructions DIET: Follow Instructions for: Heart Healthy Diet Activities you can perform: Regular-No Restrictions Activities to Avoid: Prolonged Standing, Strenuous Activity Follow up Referrals: Appointment for Follow Up - 2 Weeks with Giancarlo Huang MD PCP Follow-up - 1 Week with Gina Tovar MD Urology - 1 Week New Medications: Allopurinol (Zyloprim) 300 Mg Tab 300 MG PO DAILY Infection #30 TAB Carvedilol (Coreg) 3.125 Mg Tab 3.125 MG PO Q12HR chf #62 TAB Cephalexin (Cephalexin) 500 Mg Cap 500 MG PO Q8H Infection #4 CAP Furosemide (Furosemide) 40 Mg Tab 40 MG PO DAILY chf #31 TAB Hydrocodone-Acetaminophen (Hydrocodone-Acetaminophen) 10-325 mg Tab 1 TAB PO Q6H PRN PAIN 3-10 #20 TAB Rivaroxaban (Xarelto) 20 Mg Tab 20 MG PO DAILY cardiac thrombus #31 Ref 6 TAB Spironolactone (Aldactone) 25 Mg Tab 25 MG PO DAILY chf #30 TAB Continued Medications: Albuterol Neb (Albuterol Neb) 2.5 Mg/0.5 Ml Neb 2.5 MG NEB Q6HR NEB Note: The Albuterol Sulfate Inhalation Solution is concentrated and must be diluted. Read complete instructions carefully before using. BOX Gabapentin (Gabapentin) 300 Mg Cap 900 MG PO TID #90 Ref 0 CAP Discontinued Medications: Furosemide (Furosemide) 20 Mg Tab 20 MG PO BID@09,18 Prevent Heart Failure #60 Ref 3 TAB Hydrocodone-Acetaminophen (Hydrocodone-Acetaminophen) 10-325 mg Tab 1 TAB PO Q6H PRN PAIN #10 TAB Lisinopril (Lisinopril) 10 Mg Tab 10 MG PO BID #30 Ref 0 TAB Metoprolol Tartrate (Metoprolol Tartrate) 25 Mg Tab 25 MG PO DAILY #30 Ref 0 TAB Potassium Chloride ER (Potassium Chloride ER) 20 Meq Tab 20 MEQ PO DAILY Electrolyte Replacement #30 Ref 0 TAB Warfarin (Coumadin) 5 Mg Tab 5 MG PO DAILY@1600 Prevent Blood Clot #30 Ref 3 TAB Josh Ogden MD January 23, 2017 13:44
[2017-01-23] MEDS ORDERED: RIVAROXABAN 20 MG TAB PO SCH (14:00)
== END 2017-01-23 18:38 | disposition home or self-care (01) | DRG 871 ==
LOC: NEPC 02:12 → NEDA 05:05 → NEPFCDU 06:44 → OBSVTOIN 01-11 13:12 → N04B 01-12 02:17
PROVIDERS: ADMIT Hospitalist; ATTEND Hospitalist
PROC: 0W9G3ZZ Drainage of Peritoneal Cavity, Percutaneous Approach (ICD-10-PCS; principal; 2017-01-14)
DX: A41.9 Sepsis, unspecified organism (principal); J18.9 Pneumonia, unspecified organism; I50.23 Acute on chronic systolic (congestive) heart failure; N17.9 Acute kidney failure, unspecified; J96.10 Chronic respiratory failure, unspecified whether with hypoxia or hypercapnia; I11.0 Hypertensive heart disease with heart failure; I42.9 Cardiomyopathy, unspecified; J44.0 Chronic obstructive pulmonary disease with (acute) lower respiratory infection; R18.8 Other ascites; I82.619 Acute embolism and thrombosis of superficial veins of unspecified upper extremity; L03.116 Cellulitis of left lower limb; D49.511 Neoplasm of unspecified behavior of right kidney; E87.5 Hyperkalemia; M79.7 Fibromyalgia; K21.9 Gastro-esophageal reflux disease without esophagitis; I25.10 Atherosclerotic heart disease of native coronary artery without angina pectoris; I45.10 Unspecified right bundle-branch block; K59.00 Constipation, unspecified; E78.5 Hyperlipidemia, unspecified; E87.6 Hypokalemia; I27.81 Cor pulmonale (chronic); R35.1 Nocturia; I27.2 Other secondary pulmonary hypertension; K76.1 Chronic passive congestion of liver; D64.9 Anemia, unspecified; N50.89 Other specified disorders of the male genital organs; M10.071 Idiopathic gout, right ankle and foot; S01.81XA Laceration without foreign body of other part of head, initial encounter; M54.5 Low back pain; M25.511 Pain in right shoulder; M19.90 Unspecified osteoarthritis, unspecified site; F32.9 Major depressive disorder, single episode, unspecified; F41.9 Anxiety disorder, unspecified; F51.3 Sleepwalking [somnambulism]; W19.XXXA Unspecified fall, initial encounter; Y92.239 Unspecified place in hospital as the place of occurrence of the external cause; Y95 Nosocomial condition; Z23 Encounter for immunization; Z79.01 Long term (current) use of anticoagulants; Z87.891 Personal history of nicotine dependence; Z88.1 Allergy status to other antibiotic agents; Z88.6 Allergy status to analgesic agent
CPT/HCPCS: 49083; 70450; 71010; 72170; 73030; 73720; 74177; 74183; 76700; 76705; 76937; 76999; 80048; 80053; 80074; 80076; 80202; 81001; 82042; 82103; 82105; 82140; 82272; 82378; 82390; 82550; 82728; 82945; 83520; 83540; 83550; 83615; 83735; 83880; 84100; 84132; 84155; 84157; 84550; 85025; 85027; 85610; 85730; 86038; 86256; 87040; 87070; 87086; 87205; 89051; 90732; 93005; 93971; 94640; 94664; 99285; A9579; C1729; G8987-GP; G8988-GP; J0456; J0610; J0696; J1644; J1815; J1940; J1956; J2270; J2405; J2543; J3370; J3430; J7040; J7050; J7611; Q9963; Q9967

== ENCOUNTER 2017-01-28 10:57 | Inpatient (IN) | payer MEDICAID, OTHER ==
[~2017-01-28] VITALS: Ht 185.4 cm; Wt 84.0 kg
[2017-01-28] VITALS (9 sets, daily range): BP systolic 101–132; BP diastolic 67–84; PULSE 89–112; RESP 16–20; TEMP 98.1–99; O2SAT 95–99
[~2017-01-28 10:57] MED LIST changes: +ALLO300 PO; +CARV3.125 PO; +CEPH500C PO; -COUM5TAB PO; -FURO20TA PO; +FURO40TA PO; -LISI10TA3 PO; -METO25TA3 PO; -POTA-163 PO; +SPIR25 PO; +XARE20TA PO
--- NOTE | 2017-01-28 11:16 | PD ---
HPI Chief Complaint: Respiratory Symptoms Time Seen by Provider: 11:15 Travel History International Travel<30 days: No Contact w/Intl Traveler<30days: No Traveled to known affect area: No History of Present Illness HPI 51-year-old male with PMH of HTN, COPD, GERD, CHF, fibromyalgia, right kidney mass presents to the ED for evaluation of 3 day history of watery diarrhea and rectal pain, low volume urine output, dyspnea on exertion, chronic abdominal pain. Patient also complains of "20 episodes" of watery diarrhea today. The patient denies fever, chills, chest pain, palpitations, cough, decreased appetite, BRBPR, melena, hematochezia, dysuria. He states that he stopped taking his Lasix 2 days ago. The patient states that he was recently discharged from the hospital, has not had any follow-up appointments yet. PFSH Past Medical History Arthritis: Yes Asthma: Yes Anxiety: Yes Depression: Yes Cancer: No Cardiovascular Problems: Yes Chemotherapy: No Congestive Heart Failure: Yes COPD: No Diabetes: No Diminished Hearing: No Endocrine: No Fibromyalgia: Yes GERD: Yes Genitourinary: Yes (mass left kidney) Hypertension: Yes Immune Disorder: No Musculoskeletal: Yes Neurologic: Yes Psychiatric: Yes Reproductive: No Respiratory: Yes Integumentary: Yes (reoccuring shingles) Immunizations Current: Yes Migraines: Yes Radiation Therapy: No Sleep Apnea: Yes Thyroid Disease: No Social History Alcohol Use: No Tobacco Use: No Substance Use: No Allergies-Medications (Allergen,Severity, Reaction): Coded Allergies: Ibuprofen (Verified Allergy, Severe, Nausea/Vomiting, 01/28/17) Levaquin (Verified Allergy, Mild, EDEMA, 01/28/17) Ultram (Verified Allergy, Mild, ITCHING, 01/28/17) Reported Meds & Prescriptions Reported Meds & Active Scripts Active Zyloprim (Allopurinol) 300 Mg Tab 300 Mg PO DAILY Hydrocodone-Acetaminophen 10-325 mg Tab 1 Tab PO Q6H PRN Furosemide 40 Mg Tab 40 Mg PO DAILY Coreg (Carvedilol) 3.125 Mg Tab 3.125 Mg PO Q12HR Xarelto (Rivaroxaban) 20 Mg Tab 20 Mg PO DAILY Aldactone (Spironolactone) 25 Mg Tab 25 Mg PO DAILY Reported Neurontin (Gabapentin) 300 Mg Cap 300 Mg PO TID Review of Systems Except as stated in HPI: all other systems reviewed are Neg Physical Exam Narrative GENERAL: Well-nourished, well-developed, nontoxic appearing white male in no acute distress. SKIN: Focused skin assessment warm/dry. HEAD: Normocephalic. EYES: No scleral icterus. No injection or drainage. NECK: Supple, trachea midline. No JVD or lymphadenopathy. CARDIOVASCULAR: Regular rate and rhythm without murmurs, gallops, or rubs. RESPIRATORY: Breath sounds clear and equal bilaterally. Very mild end expiratory wheezes. No accessory muscle use. GASTROINTESTINAL: Abdomen soft, nondistended. Tender to palpation in the right flank. Active bowel sounds. RECTAL EXAM: No masses, hemorrhoids or tenderness, stool is brown. Guaiac negative. MUSCULOSKELETAL: No cyanosis. 2+ edema in to the midshin bilateral lower extremities. Mild erythema bilateral anterior shins. No warmth or drainage. BACK: Nontender without obvious deformity. ++ Right-sided CVA tenderness. Data Data Last Documented VS Vital Signs Date Time Temp Pulse Resp B/P Pulse Ox O2 Delivery O2 Flow Rate FiO2 01/28/17 13:20 110 95 Room Air 01/28/17 11:31 20 01/28/17 10:58 98.1 Orders Complete Blood Count With Diff (01/28/17 11:32) Comprehensive Metabolic Panel (01/28/17 11:32) B-Type Natriuretic Peptide (01/28/17 11:32) Act Partial Throm Time (Ptt) (01/28/17 11:32) Prothrombin Time / Inr (Pt) (01/28/17 11:32) Ckmb (Isoenzyme) Profile (01/28/17 11:32) Troponin I (01/28/17 11:32) Urinalysis - C+S If Indicated (01/28/17 11:32) Iv Access Insert/Monitor (01/28/17 11:32) Electrocardiogram (01/28/17 11:32) Ecg Monitoring (01/28/17 11:32) Oximetry (01/28/17 11:32) Chest, Single Ap (01/28/17 11:32) Sodium Chloride 0.9% Flush (Ns Flush) (01/28/17 11:45) Morphine Inj (Morphine Inj) (01/28/17 11:45) Sodium Chlorid 0.9% 500 Ml Inj (Ns 500 M (01/28/17 12:45) Furosemide Inj (Lasix Inj) (01/28/17 12:45) Furosemide Inj (Lasix Inj) (01/28/17 13:15) Admit Order (Ed Use Only) (01/28/17 13:25) Labs Laboratory Tests Test 01/28/17 01/28/17 11:55 12:00 Urine Color YELLOW Urine Turbidity CLEAR Urine pH 6.5 Urine Specific [place] 1.012 Urine Protein NEG mg/dL Urine Glucose (UA) NEG mg/dL Urine Ketones NEG mg/dL Urine Occult Blood NEG Urine Nitrite NEG Urine Bilirubin NEG Urine Urobilinogen LESS THAN 2.0 MG/DL Urine Leukocyte Esterase NEG Urine RBC LESS THAN 1 /hpf Urine WBC LESS THAN 1 /hpf Urine Mucus FEW /lpf Microscopic Urinalysis Comment CULT NOT INDICATED White Blood Count 11.0 TH/MM3 Red Blood Count 4.25 MIL/MM3 Hemoglobin 10.7 GM/DL Hematocrit 34.7 % Mean Corpuscular Volume 81.5 FL Mean Corpuscular Hemoglobin 25.0 PG Mean Corpuscular Hemoglobin 30.7 % Concent Red Cell Distribution Width 16.4 % Platelet Count 266 TH/MM3 Mean Platelet Volume 9.6 FL Neutrophils (%) (Auto) 69.2 % Lymphocytes (%) (Auto) 17.2 % Monocytes (%) (Auto) 8.7 % Eosinophils (%) (Auto) 3.6 % Basophils (%) (Auto) 1.3 % Neutrophils # (Auto) 7.6 TH/MM3 Lymphocytes # (Auto) 1.9 TH/MM3 Monocytes # (Auto) 1.0 TH/MM3 Eosinophils # (Auto) 0.4 TH/MM3 Basophils # (Auto) 0.1 TH/MM3 CBC Comment DIFF FINAL Differential Comment Prothrombin Time 13.5 SEC Prothromb Time International 1.2 RATIO Ratio Activated Partial 28.1 SEC Thromboplast Time Sodium Level 140 MEQ/L Potassium Level 4.2 MEQ/L Chloride Level 104 MEQ/L Carbon Dioxide Level 27.8 MEQ/L Anion Gap 8 MEQ/L Blood Urea Nitrogen 18 MG/DL Creatinine 0.87 MG/DL Estimat Glomerular Filtration 92 ML/MIN Rate Random Glucose 95 MG/DL Calcium Level 8.4 MG/DL Total Bilirubin 0.4 MG/DL Aspartate Amino Transf 23 U/L (AST/SGOT) Alanine Aminotransferase 31 U/L (ALT/SGPT) Alkaline Phosphatase 129 U/L Total Creatine Kinase 67 U/L Troponin I LESS THAN 0.02 NG/ML B-Type Natriuretic Peptide 1531 PG/ML Total Protein 7.4 GM/DL Albumin 2.9 GM/DL MDM Medical Decision Making Medical Screen Exam Complete: Yes Emergency Medical Condition: Yes Medical Record Reviewed: Yes Differential Diagnosis COPD exacerbation versus CHF versus TRAM versus chronic pain versus noncompliance versus Narrative Course 51-year-old male with PMH of HTN, COPD, GERD, CHF, fibromyalgia, right kidney mass ON XARELTO presents to the ED for evaluation of 3 day history of dyspnea on exertion, several episodes of watery diarrhea. The patient denies fever, chills, chest pain, palpitations, cough, decreased appetite, BRBPR, melena, hematochezia, dysuria. He states that he stopped taking his Lasix 2 days ago. Review of record reveals patient was admitted to the hospital 01/11, discharged . Vitals reviewed. Physical exam reveals a nontoxic-appearing white male in no acute distress. There are very mild end expiratory wheezes in the bilateral lung ferguson. There is right flank and CVA tenderness. There is 2+ pitting edema to the mid shins bilaterally. IV was established. Patient was placed on continuous monitoring. He was administered 500mL NS, 4 mg morphine IV. CBC: WBC 11.0. Hemoglobin 10.7. Coags: INR 1.2. CMP: BUN 18, creatinine 0.87. Potassium 4.2. BNP 1531. UA: No culture indicated. Guaiac: negative. CXR: 1.Mildly improved small right pleural effusion with right lower lobe airspace disease. 2. Mild cardiomegaly with mild positive fluid balance per radiology read. EKG: rate 111, sinus rhythm. NH interval 168, QRS 97, QTC 374. LAD. RBBB. Reviewed by Dr. Carmichael. Cardiac enzymes negative 1. Review of the record reveals echo 12/28/16 showed ejection fraction of 20%. Patient was administered 60 mg Lasix IV. Urine output 500 mL's in the ED. Discussed with Dr. Carmichael. Plan to admit to the medicine service for observation. I spoke with the residents who agree to accept the patient to the medicine service under Dr. Baires. Please see medicine notes for disposition. [facility] Point of Care Internal Pos. & Neg. Controls: Passed Fecal Specimen Occult Blood: Negative Liz Saha Jan 28, 2017 11:16
[2017-01-28] MEDS ORDERED: NEUR300C PO (11:24)
[2017-01-28] MEDS ORDERED: SODIUM CHLORIDE 0.9% FLUSH 10 ML FLUSH IVF PRN (11:45)
[2017-01-28] MEDS ORDERED: MORPHINE SULFATE 4 MG/ML INJ IV PUSH ONE (11:45)
--- NOTE | 2017-01-28 12:22 | RADRPT ---
EXAM DATE/TIME: 01/28/2017 11:42 [facility] COMPARISON: CHEST SINGLE AP, January 10, 2017, 3:18. INDICATIONS : Chest pain and shortness of breath. MEDICAL HISTORY : Congestive heart failure. SURGICAL HISTORY : None. ENCOUNTER: Initial ACUITY: 1 month PAIN SCORE: 7/10 LOCATION: Bilateral upper chest FINDINGS: There is mildly improved small right pleural effusion with associated lower lobe airspace disease. Ca rdiac silhouette is enlarged. Pulmonary vascularity is slightly indistinct. Remainder of the exam is unchanged. CONCLUSION: 1. Mildly improved small right pleural effusion with associated right lower lobe airspace disease. 2. Mild cardiomegaly with mild positive fluid balance. Rom Villagomez MD on January 28, 2017 at 12:18 Board Certified Radiologist. This report was verified electronically.
[2017-01-28 12:25] LABS: AUTOMATED NEUTROPHIL # 7.6 TH/MM3 (1.8-7.7); BASOPHIL # 0.1 TH/MM3 (0-0.2); BASOPHIL % 1.3 % (0.0-2.0); EOSINOPHIL # 0.4 TH/MM3 (0-0.4); EOSINOPHIL % 3.6 % (0.0-4.0); HEMATOCRIT 34.7 % (39.0-51.0); HEMO FLAGS DIFF FINAL; LYMPH % 17.2 % (9.0-44.0); LYMPHOCYTE # 1.9 TH/MM3 (1.0-4.8); MEAN CELL VOLUME 81.5 FL (80.0-100.0); MEAN CORPUSCULAR HGB CONC 30.7 % (32.0-36.0); MONO % 8.7 % (0.0-8.0); NEUT % 69.2 % (16.0-70.0); PLATELET COUNT 266 TH/MM3 (150-450); RED BLOOD COUNT 4.25 MIL/MM3 (4.50-5.90); RED CELL DISTRIBUTION WIDTH 16.4 % (11.6-17.2)
[2017-01-28 12:27] LABS: BLOOD, URINE NEG (NEG); COMMENT (UR) CULT NOT INDICATED; CULTURE IF INDICATED CULT NOT INDICATED; GLUCOSE,URINE NEG (NEG); KETONE, URINE NEG (NEG); MUCUS URINE FEW /lpf (OCC); NITRITE,URINE NEG (NEG); PH, URINE 6.5 (5.0-8.5); URINE COLOR YELLOW (YELLW/STRAW)
[2017-01-28 12:34] LABS: APTT (PATIENT) 28.1 SEC (24.3-30.1); INTERNATIONAL NORMALIZED RATIO 1.2 RATIO; PROTHROMBIN TIME - PATIENT 13.5 SEC (9.8-11.6)
[2017-01-28 12:38] LABS: ANION GAP 8 MEQ/L (5-15); AST (GOT) 23 U/L (15-37); BICARBONATE 27.8 MEQ/L (21.0-32.0); BLOOD UREA NITROGEN 18 MG/DL (7-18); CHLORIDE 104 MEQ/L (98-107); GLOMERULAR FILTRATION RATE 92 ML/MIN (>89); POTASSIUM 4.2 MEQ/L (3.5-5.1); SODIUM (NA) 140 MEQ/L (136-145)
[2017-01-28 12:43] LABS: ALKALINE PHOSPHATASE 129 U/L (45-117); ALT (GPT) 31 U/L (12-78); TOTAL BILIRUBIN ADULT 0.4 MG/DL (0.2-1.0)
[2017-01-28] MEDS ORDERED: FUROSEMIDE 40 MG/4 ML VIAL IV PUSH ONE (12:45)
[2017-01-28] MEDS ORDERED: SODIUM CHLORID 0.9% 500 ML INJ 500 ML IV ONE (12:45)
[2017-01-28 12:53] LABS: CREATINE KINASE 67 U/L (39-308)
[2017-01-28] MEDS ORDERED: FUROSEMIDE 20 MG/2 ML VIAL IV PUSH ONE (13:15)
[2017-01-28] MEDS ORDERED: CARVEDILOL 3.125 MG TAB PO SCH (13:45)
[2017-01-28] MEDS ORDERED: ACETAMINOPHEN 325 MG TAB PO PRN (14:00)
[2017-01-28] MEDS ORDERED: NALOXONE HCL 0.4 MG/ML AMP IV PRN (14:00)
[2017-01-28] MEDS ORDERED: SODIUM CHLORIDE 0.9% FLUSH 10 ML FLUSH IV FLUSH PRN (14:00)
[2017-01-28] MEDS: SODIUM CHLORIDE 0.9% FLUSH 10 ML FLUSH IV FLUSH SCH ×2 (14:00→23:07)
[2017-01-28] MEDS: RIVAROXABAN 20 MG TAB PO SCH (14:15)
[2017-01-28] MEDS: ALLOPURINOL 300 MG TAB PO SCH (14:15)
--- NOTE | 2017-01-28 14:20 | HHI.HP ---
HPI Service Family Medicine Primary Care Physician No Primary Care Physician Admission Diagnosis CHF, chronic abdominal pain Diagnoses: International Travel<30 Days: No Contact w/Intl Traveler<30days: No Known Affected Area: No History of Present Illness Patient is a 51 year old male with h/o CHF, COPD, HTN who presents to the ED with c/o dyspnea and worsening lower extremity edema, as well as watery diarrhea , decreased UOP, and abdominal pain. The patient was recently discharged here from the hospital on 01/23/2017. He states he has noticed worsening lower extremity edema since then as well as DECKER and orthopnea. He states to me that the only dose of Lasix he has missed recently is today's dose. He also reports 20 episodes of watery diarrhea daily over the past 3 days. Denies visible blood in his stools, melena, or foul-smelling stools. He states he has not had diarrhea like this in the past. He reports nonspecific and generalized abdominal pain. Denies fevers, chest pain, cough. He reports decreased UOP over the past 3 days; denies dysuria or hematuria. The patient was recently admitted here at [facility] on 12/27 due to a CHF exacerbation treated with IV Lasix as well as bilateral pleural effusions, he underwent an ultrasound-guided thoracentesis on 01/04/17. He was found to have a left ventricular thrombus on echo from 12/27 and was started on heparin with bridging to Coumadin. He was also treated for pneumonia and was given cefepime from 01/01-01/09 as well as azithromycin. He was discharged on 01/09 however presented again on 01/11 due to sepsis secondary to pneumonia and left lower extremity cellulitis, patient was treated with Zosyn and vancomycin and later PO Keflex. The patient was also found to have a renal mass noted on ultrasound and CT that was concerning for renal cell carcinoma. Oncology was consulted. A renal biopsy was done. Urology was also consulted who requested an abdominal MRI which showed heterogeneous solid right renal mass centered in the midpole. Urology recommendations were for the patient likely needing to pursue a nephrectomy after the patient is taken off anticoagulation which would be done as an outpatient. Cytology of peritoneal fluid following a paracentesis was negative for malignant cells. Review of Systems Constitutional: DENIES: Fever, Chills, Night Sweats Eyes: DENIES: Blurred vision, Diplopia Respiratory: COMPLAINS OF: Shortness of breath, DENIES: Cough, Wheezing, Hemoptysis, Sputum production Cardiovascular: COMPLAINS OF: Dyspnea on Exertion, Lower Extremity Edema, Orthopnea, DENIES: Chest pain, Palpitations Gastrointestinal: COMPLAINS OF: Abdominal pain, Diarrhea, DENIES: Black stools , Bloody stools, Constipation, Nausea, Vomiting Genitourinary: DENIES: Hematuria, Dysuria Integumentary: COMPLAINS OF: Rash Neurologic: DENIES: Headache Past Family Social History Past Medical History CHF (Echo 12/28/2016 w/ EF 20%) Hypertension COPD GERD Fibromyalgia Past Surgical History Left knee surgery Allergies: Coded Allergies: Ibuprofen (Verified Allergy, Severe, Nausea/Vomiting, 01/28/17) Levaquin (Verified Allergy, Mild, EDEMA, 01/28/17) Ultram (Verified Allergy, Mild, ITCHING, 01/28/17) Family History No h/o DM or CAD Social History Denies tobacco, alcohol, or illicit drug use Physical Exam Vital Signs Vital Signs Date Time Temp Pulse Resp B/P Pulse Ox O2 Delivery O2 Flow Rate FiO2 01/28/17 13:20 110 95 Room Air 01/28/17 11:36 95 Room Air 01/28/17 11:31 112 20 97 Room Air 01/28/17 11:11 Room Air 01/28/17 10:58 98.1 89 16 121/76 99 Physical Exam GENERAL: NAD, resting comfortably in bed NEURO: AOx3. Normal speech. instructor physical grossly intact. Motor grossly normal. SKIN: Warm and dry. No rashes or erythema. HEAD: Normocephalic. Atraumatic. EYES: PERRL. EOMI. No scleral icterus. No injection or drainage. ENT: No nasal drainage. Moist mucous membranes. No oral ulcers or lesions. NECK: Supple, trachea midline. No JVD or lymphadenopathy. CARDIOVASCULAR: Tachycardic rate, regular rhythm without murmurs, rubs, or gallops. Peripheral pulses 2+. Capillary refill < 2 seconds. RESPIRATORY: Bibasilar rales, expiratory wheezing throughout. No accessory muscle use. GASTROINTESTINAL: Abdomen soft, vague TTP throughout abdomen, nondistended, normal BS. No organomegaly or masses. No rebound tenderness. No guarding. MUSCULOSKELETAL: 2+ pitting edema up to mid-tibia b/l. Normal range of motion. 5 /5 strength throughout. BACK: Nontender without obvious deformity. Laboratory Laboratory Tests Test 01/28/17 01/28/17 11:55 12:00 Urine Color YELLOW Urine Turbidity CLEAR Urine pH 6.5 Urine Specific [place] 1.012 Urine Protein NEG Urine Glucose (UA) NEG Urine Ketones NEG Urine Occult Blood NEG Urine Nitrite NEG Urine Bilirubin NEG Urine Urobilinogen LESS THAN 2.0 Urine Leukocyte Esterase NEG Urine RBC LESS THAN 1 Urine WBC LESS THAN 1 Urine Mucus FEW Microscopic Urinalysis Comment CULT NOT INDICATED White Blood Count 11.0 Red Blood Count 4.25 Hemoglobin 10.7 Hematocrit 34.7 Mean Corpuscular Volume 81.5 Mean Corpuscular Hemoglobin 25.0 Mean Corpuscular Hemoglobin 30.7 Concent Red Cell Distribution Width 16.4 Platelet Count 266 Mean Platelet Volume 9.6 Neutrophils (%) (Auto) 69.2 Lymphocytes (%) (Auto) 17.2 Monocytes (%) (Auto) 8.7 Eosinophils (%) (Auto) 3.6 Basophils (%) (Auto) 1.3 Neutrophils # (Auto) 7.6 Lymphocytes # (Auto) 1.9 Monocytes # (Auto) 1.0 Eosinophils # (Auto) 0.4 Basophils # (Auto) 0.1 CBC Comment DIFF FINAL Differential Comment Prothrombin Time 13.5 Prothromb Time International 1.2 Ratio Activated Partial 28.1 Thromboplast Time Sodium Level 140 Potassium Level 4.2 Chloride Level 104 Carbon Dioxide Level 27.8 Anion Gap 8 Blood Urea Nitrogen 18 Creatinine 0.87 Estimat Glomerular Filtration 92 Rate Random Glucose 95 Calcium Level 8.4 Total Bilirubin 0.4 Aspartate Amino Transf 23 (AST/SGOT) Alanine Aminotransferase 31 (ALT/SGPT) Alkaline Phosphatase 129 Total Creatine Kinase 67 Troponin I LESS THAN 0.02 B-Type Natriuretic Peptide 1531 Total Protein 7.4 Albumin 2.9 Result Diagram: 01/28/17 1200 01/28/17 1200 Imaging Last 48 hours Impressions Chest X-Ray 01/28/17 1132 Signed Impressions: Service Date/Time: January 11:42 - CONCLUSION: 1. Mildly improved small right pleural effusion with associated right lower lobe airspace disease. 2. Mild cardiomegaly with mild positive fluid balance. Rom Villagomez MD Septic Shock Reassessment Heart: Other (tachycardic rate, regular rhythm) Lungs: Crackles (bibasilar crackles) Skin: Warm, Dry Peripheral Pulses: Bounding Right Radial Bounding Left Radial Bounding Right Dorsalis Pedis Bounding Left Dorsalis Pedis Bounding Right Posterior Tibial Bounding Left Posterior Tibial Capillary Refill: <2 seconds Assessment and Plan Assessment and Plan 51 year old male with h/o CHF, COPD, HTN who presents to the ED with c/o dyspnea and worsening lower extremity edema, as well as watery diarrhea, decreased UOP, and abdominal pain. Code Status Full code Problem List: (1) CHF (congestive heart failure) Status: Acute Plan: - si/sxs c/w CHF exacerbation - Patient admits to missing home dose of Lasix today - BNP on admission 1531 - Given 60 mg IV of Lasix in the ED with 500 cc of prompt UOP - Continue Lasix 40 mg IV daily - Continue home spironolactone 25 mg po daily - Trend BNP - Afebrile on admission, WBC 11.0 in high nml range; patient denying any fevers cough or sputum production - CXR shows mildly improved small right pleural effusion with associated right lower lobe airspace disease, mild cardiomegaly with mild positive fluid balance - Continue to monitor clinically and consider broad spectrum antibiotics to treat for HCAP if patient becomes febrile or develops leukocytosis (2) 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 Plan: Patient was found to have a left ventricular thrombus on echo from 12/27 and was started on heparin with bridging to Coumadin during his previous hospitalization here Patient was discharged on Xarelto Continue home Xarelto (3) Right kidney mass Status: Chronic Plan: Renal mass suspicious for RCC Patient was informed to have outpatient follow up with oncology within 2-3 weeks following his last discharge Patient will need follow up with urology for nephrectomy as outpatient as well Monitor I/Os Patient continues to have mild ascites Cytology of peritoneal fluid negative for malignant cells (4) Abdominal pain Status: Acute Plan: - Vague TTP throughout on exam, no rebound tenderness, no guarding, abdomen is soft - Abdominal US obtained today showing small volume ascites that is insufficient volume for paracentesis - Abdomen US from 01/21 also with mild ascites insufficient for paracentesis - Continue to monitor, low threshold to initiate antibiotics (5) COPD (chronic obstructive pulmonary disease) Status: Chronic Plan: Patient reports he has COPD not oxygen dependent Denies cigarette smoking history No home COPD meds on record Duonebs q4h prn SOB Albuterol q2h prn (6) HTN (hypertension) Status: Chronic Plan: Monitor vitals q4h Hold home Coreg (7) Diarrhea Status: Acute Plan: Obtain c diff toxin PCR Consider stool studies if diarrhea persists Patient appears well hydrated on exam with MMM, brisk cap refill, skin warm, no tenting, 2+ peripheral pulses Patient is fluid overloaded given his CHF exacerbation Hold IVF hydration at this time (8) Venous stasis Status: Acute Plan: Left lower extremity concerning for venous stasis vs cellulitis Patient had been treated for cellulitis during his previous hospitalization Appears to be more c/w venous stasis BRANDON hose (9) Nutrition, metabolism, and development symptoms Status: Acute Plan: Fluids: not indicated Electrolytes: WNLs, continue to monitor and replete as necessary Nutrition: Heart healthy diet DVT ppx: Xarelto as above Physician Certification 2 Midnight Certification Type: Admission for Inpatient Services Order for Inpatient Services The services are ordered in accordance with Medicare regulations or non- Medicare payer requirements, as applicable. In the case of services not specified as inpatient-only, they are appropriately provided as inpatient services in accordance with the 2-midnight benchmark. Estimated LOS (days): 1 days is the estimated time the patient will need to remain in the hospital, assuming treatment plan goals are met and no additional complications. Post-Hospital Plan: Home Lamonte Corrales MD R1 Jan 28, 2017 14:20
[2017-01-28] MEDS: SPIRONOLACTONE 25 MG TAB PO SCH (15:53)
[2017-01-28] MEDS: MORPHINE SULFATE 4 MG/ML INJ IV PUSH PRN (15:54)
[2017-01-28] MEDS ORDERED: ACETAMINOPHEN 1000 MG/100 ML VIAL IV PRN (16:00)
[2017-01-28] MEDS: GABAPENTIN 300 MG CAP PO SCH (17:59)
[2017-01-28] MEDS: ACETAMINOPHEN/HYDROcodone 325 MG/5 MG TAB PO PRN (18:00)
--- NOTE | 2017-01-28 20:31 | RADRPT ---
EXAM DATE/TIME: 01/28/2017 19:48 [facility] COMPARISON: US ABDOMEN - LOWER LIMITED, January 21, 2017, 9:51. INDICATIONS : Ascites. MEDICAL HISTORY : Congestive heart failure. Gastroesophageal reflux disease. Hypertension. Sleep apnea. Fibromyalgia. A rthritis. Osteoporosis. SURGICAL HISTORY : Left knee orthoscopy. Paracentesis. ENCOUNTER: Subsequent ACUITY: 1 week PAIN SCORE: 3/10 LOCATION: Abdomen. AREA EVALUATED: Abdominal quadrants. FINDINGS: Imaging of the abdomen and pelvis was performed to evaluate for ascites for possible paracentesis. A small amount of ascites is seen adjacent to the liver and low within the pelvis. This is insufficient volume for paracentesis. CONCLUSION: Small volume ascites which is insufficient volume for paracentesis. Chu Villarreal Jr., MD on January 28, 2017 at 20:28 Board Certified Radiologist. This report was verified electronically.
[2017-01-28] MEDS ORDERED: RESP: ALBUTEROL 2.5 MG/3 ML NEB (PRN) NEB (21:15)
[2017-01-28] MEDS: RESP: ALBUTEROL 2.5 MG/IPRATROPIUM 0.5 MG NEB (SCH) NEB (22:41)
[2017-01-29] VITALS (17 sets, daily range): BP systolic 73–111; BP diastolic 56–84; PULSE 84–108; RESP 16–27; TEMP 94–98.7; O2SAT 95–100
[2017-01-29 03:09] LABS: C. DIFF EPI 027 PRESUMPTIVE POSITIVE (NEGATIVE); C. DIFF TOXIN PCR POSITIVE (NEGATIVE)
[2017-01-29] MEDS ORDERED: ONDANSETRON HCL 4 MG/2 ML VIAL IV PUSH PRN (03:45)
[2017-01-29] MEDS: RESP: ALBUTEROL 2.5 MG/IPRATROPIUM 0.5 MG NEB (SCH) NEB ×7 (04:00→23:20)
[2017-01-29] MEDS: metroNIDAZOLE 500 MG TAB PO SCH ×3 (04:04→19:44)
[2017-01-29] MEDS: ACETAMINOPHEN 1000 MG/100 ML VIAL IV SCH ×4 (04:18→22:15)
--- NOTE | 2017-01-29 04:47 | HHI.FPPN ---
Addendum to progress note ADDENDUM Reason for addendum: Additonal documentation Additional information Residents paged regarding pt's low blood pressures and abdominal pain. Pt having downtrending blood pressures, initially had 120s/70s on admission, now downtrending to 80s/60s for the last few hours. Most recent check was 73/65. Pt asymptomatic. Per nurses, pt also having abdominal pain, not controlled with oral medications. His lab results also came back positive for C diff. Went and evaluated pt. Pt resting comfortably in bed. Denies any complaints, except abdominal pain. He states he feels "fine". Denies any headache, dizziness. No chest pain, worsening SOB. Denies having C diff before. Vitals: BP 90/65, RR 16, HR 92, O2 98% Gen: NAD, lying comfortably in bed CV: RRR, no murmur Lungs: Occasional wheezes, crackles bilaterally in bases GI: abdomen soft, mildly diffusely tender to palpation. No guarding Ext: 2+ pitting edema bilaterally Neuro: AOx3 51 y/o male with history of CHF, COPD admitted for CHF exacerbation. Now, with trending down blood pressures and positive for C diff. Clinically, pt asymptomatic. Physical exam consistent with fluid overload, however. Pt afebrile, initial WBC 11.0, other vitals stable. Will need to be cautious with administering fluids; with hypotension, may require pressure support if remains low -Stat CXR to evaluate pulmonary function/fluid status -Blood cultures -Lactic acid -Repeat BP with smaller cuff -Transfer to ICU for closer monitoring -Start Flagyl 500mg q8H for C diff -IV Tylenol for pain control sdw Dr. Rambo Keller,Niranjan Calloway MD R1 Jan 29, 2017 04:47
--- NOTE | 2017-01-29 05:24 | RADRPT ---
EXAM DATE/TIME: 01/29/2017 04:19 [facility] COMPARISON: CHEST SINGLE AP, January 28, 2017, 11:42. INDICATIONS : Evaluate for CHF. MEDICAL HISTORY : Congestive heart failure. SURGICAL HISTORY : None. ENCOUNTER: Subsequent ACUITY: 2 days PAIN SCORE: 0/10 LOCATION: chest FINDINGS: The cardiac silhouette is enlarged in transverse diameter. There are findings of congestive heart ladonna lure with interstitial and alveolar opacity bilaterally. The findings have worsened when compared wit h the prior examination. A small right sided effusion is present. CONCLUSION: 1. Cardiomegaly and findings of congestive heart failure. The findings have worsened when compared wi th the prior examination. Andrew Dennis MD on January 29, 2017 at 5:22 Board Certified Radiologist. This report was verified electronically.
--- NOTE | 2017-01-29 07:04 | HHI.FPPN ---
Subjective Remarks Dann Tineo is a 51yo gentleman with h/o CHF and COPD admitted for worsening SOB and lower extremity edema, but also water diarrhea and abdominal pain. He was recently hospitalized at [facility] on a different service from 01/11 through 01/23, during which time it appears he was treated for CHF exacerbation, and pneumonia. During his hospitalization, he received Vancomycin, Zosyn and transitioned to Keflex. Since hospital discharge, he has had worsening dyspnea on exertion and orthopnea. No chest pain, no cough. Of note, he missed yesterday's dose of Lasix but otherwise has been adherent to treatment plans. Regarding his diarrhea, he has had 20 episodes of watery diarrhea per day over the past 3 days. No blood, melena, or malodor to his stools. This is associated with generalized abdominal pain. No fevers. No dysuria. For further details, please see resident H&P. Overnight, he developed low blood pressures and was transferred to ICU for closer monitoring. This morning, he reports he is feeling better. He has had 4 bowel movements since his arrival to the ER. He denies lightheadedness, even with ambulation to the bathroom. ROS: No fevers, no chills. + diarrhea (although decreased number). + mild abdominal pain. No dysuria. No fevers. No chest pain, no SOB. All other systems reviewed are negative. PMH/PSxH/SocHx/FamHx: Per resident H&P. Significant for: CHF with last echo 2016 of 20%, HTN, COPD, GERD, fibromyalgia, LV thrombus, recent pneumonia for which he received various antibiotics. Right renal mass concerning for renal cell CA, with likely nephrology in near future. Left knee surgery. Father from alcohol abuse. Mother with DM II and HTN. No tobacco, alcohol, or recreational drug use. From H&P: "The patient was recently admitted here at [facility] on 12/27 due to a CHF exacerbation treated with IV Lasix as well as bilateral pleural effusions, he underwent an ultrasound-guided thoracentesis on 01/04/17. He was found to have a left ventricular thrombus on echo from 12/27 and was started on heparin with bridging to Coumadin. He was also treated for pneumonia and was given cefepime from 01/01-01/09 as well as azithromycin. He was discharged on 01/09 however presented again on 01/11 due to sepsis secondary to pneumonia and left lower extremity cellulitis, patient was treated with Zosyn and vancomycin and later PO Keflex." Objective Vitals Vital Signs Date Time Temp Pulse Resp B/P Pulse Ox O2 Delivery O2 Flow Rate FiO2 01/29/17 04:40 90/56 01/29/17 03:05 94.0 92 16 73/65 98 89/64 Automatic Cuff 01/29/17 02:24 95 01/29/17 02:09 86/59 01/29/17 02:00 97 18 84/66 95 01/29/17 01:19 98.5 92 18 96/66 97 01/28/17 22:44 96 01/28/17 21:01 99.0 97 18 105/72 96 01/28/17 19:07 19 01/28/17 18:11 108 01/28/17 16:58 19 01/28/17 16:00 98.4 104 18 101/67 96 01/28/17 14:16 132/84 01/28/17 13:20 110 95 Room Air 01/28/17 11:36 95 Room Air 01/28/17 11:31 112 20 97 Room Air 01/28/17 11:11 Room Air 01/28/17 10:58 98.1 89 16 121/76 99 I/O 01/28/17 01/28/17 01/28/17 01/29/17 01/29/17 01/29/17 07:00 15:00 23:00 07:00 15:00 23:00 Intake Total 500 ml 760 ml 100 ml Output Total 1550 ml Balance -1050 ml 760 ml 100 ml Intake Oral 760 ml 100 ml IV Total 500 ml Output Urine Total 1550 ml # Voids 4 4 1 # Bowel Movements 1 1 Result Diagram: 01/28/17 1200 01/28/17 1200 Objective Remarks GENERAL: in NAD, no resp distress, nontoxic. Sitting comfortably in chair. HEENT: NCAT, EOMI, no scleral icterus, no conjunctival injection. MMM. NECK: Supple, no meningeal signs. CV:Rate 100s. Regular. S1 S2 CHEST/PULM: Crackles at bases. Good air movement. No wheezes ABD/GI: +BS, soft, nondistended. Mild tenderness throughout abdomen. No rebound , no guarding. EXT: 2+ DP pulses. No calf tenderness. Borders of erythema that are marked have dramatically improved on lower extremities. : No CVAT. NEURO: Awake, alert. Normal muscle tone. Grossly WNL. SKIN: No rashes, no jaundice. Lower extremities as above. PSYCH: Mood and affect are appropriate. Speech fluent. Does not appear to respond to internal stimuli. A/P Assessment and Plan 51yo gentleman admitted for CHF exacerbation and C diff colitis Attending Attestation Patient seen, examined, and discussed with resident team. The patient has been seen and examined. The chart and all resident notes have been reviewed. I agree that inpatient care is appropriate and that a two midnight stay is expected for the reasons documented in the resident history and physical. I have discussed this with the resident and certify the resident s order for inpatient admission. Problem List: (1) Acute on chronic congestive heart failure Status: Acute Plan: Recent echo with EF 20%. Patient is symptomatically improved, although crackles still present and CXR appears slightly worse this AM. - Patient admits to missing home dose of Lasix today; possible other doses missed as well per ER physician. - BNP on admission 1531 - Given 60 mg IV of Lasix in the ED with 500 cc of prompt UOP - Continue Lasix 40 mg IV daily. - Continue home spironolactone 25 mg po daily - Monitor Is/Os. Wells score is 4 (unlikely PE) (2) C. difficile colitis Status: Acute Plan: Diarrhea has improved somewhat with initiation of antibiotic therapy. Flagyl 01/28/17 --> (3) Hypotension Status: Resolved Plan: Improved overnight. Monitor BPs closely. (4) Left ventricular thrombosis without DE Status: Chronic Plan: Patient was found to have a left ventricular thrombus on echo from 12/27 and was started on heparin with bridging to Coumadin during his previous hospitalization here Patient was discharged on Xarelto Continue home Xarelto. (5) Right kidney mass Status: Chronic Plan: Renal mass suspicious for RCC Patient was informed to have outpatient follow up with oncology within 2-3 weeks following his last discharge (Mid-January) Patient will need follow up with urology for nephrectomy as outpatient as well Monitor I/Os Patient continues to have mild ascites Cytology of peritoneal fluid negative for malignant cells. (6) COPD (chronic obstructive pulmonary disease) Status: Chronic Plan: Patient reports he has COPD not oxygen dependent. He is maintaining O2 sats on room air. Denies cigarette smoking history No home COPD meds on record Duonebs q4h prn SOB Albuterol q2h prn (7) HTN (hypertension) Status: Chronic Plan: Monitor vitals q4h Hold home Coreg, due to CHF exacerbation and hypotension. (8) Venous stasis Status: Acute Plan: Left lower extremity concerning for venous stasis vs cellulitis Patient had been treated for cellulitis during his previous hospitalization Appears to be more c/w venous stasis BRANDON hose Problem Qualifiers (1) HTN (hypertension): Qualified Code: I10 - Essential hypertension Tram Baires MD Jan 29, 2017 07:04 Appears to be more c/w venous stasis BRANDON hose (10) Nutrition, metabolism, and development symptoms Status: Acute Plan: Fluids: not indicated Electrolytes: WNLs, continue to monitor and replete as necessary Nutrition: Heart healthy diet DVT ppx: Xarelto as above Tram Baires MD Jan 29, 2017 07:04 Tram Baires MD Jan 29, 2017 07:04 (7) Diarrhea Status: Acute Plan: Obtain c diff toxin PCR Consider stool studies if diarrhea persists Patient appears well hydrated on exam with MMM, brisk cap refill, skin warm, no tenting, 2+ peripheral pulses Patient is fluid overloaded given his CHF exacerbation Hold IVF hydration at this time (8) Venous stasis Status: Acute Plan: Left lower extremity concerning for venous stasis vs cellulitis Patient had been treated for cellulitis during his previous hospitalization Appears to be more c/w venous stasis BRANDON hose (9) Nutrition, metabolism, and development symptoms Status: Acute Plan: Fluids: not indicated Electrolytes: WNLs, continue to monitor and replete as necessary Nutrition: Heart healthy diet DVT ppx: Xarelto as above Tram Baires MD Jan 29, 2017 07:04
[2017-01-29] MEDS: GABAPENTIN 300 MG CAP PO SCH ×3 (08:38→17:41)
[2017-01-29] MEDS: RIVAROXABAN 20 MG TAB PO SCH (08:38)
[2017-01-29] MEDS: MORPHINE SULFATE 4 MG/ML INJ IV PUSH PRN ×3 (08:38→19:44)
[2017-01-29] MEDS: FUROSEMIDE 40 MG/4 ML VIAL IV PUSH SCH (08:39)
[2017-01-29] MEDS: SPIRONOLACTONE 25 MG TAB PO SCH (08:39)
[2017-01-29] MEDS: ALLOPURINOL 300 MG TAB PO SCH (08:39)
[2017-01-29] MEDS: SODIUM CHLORIDE 0.9% FLUSH 10 ML FLUSH IV FLUSH SCH ×2 (08:39→21:05)
[2017-01-29] MEDS ORDERED: SPIRONOLACTONE 25 MG TAB PO SCH (09:00)
[2017-01-29 10:08] LABS: AUTOMATED NEUTROPHIL # 6.7 TH/MM3 (1.8-7.7); BASOPHIL # 0.2 TH/MM3 (0-0.2); BASOPHIL % 1.7 % (0.0-2.0); EOSINOPHIL # 0.6 TH/MM3 (0-0.4); EOSINOPHIL % 5.7 % (0.0-4.0); HEMATOCRIT 39.8 % (39.0-51.0); HEMO FLAGS DIFF FINAL; LYMPH % 21.5 % (9.0-44.0); LYMPHOCYTE # 2.2 TH/MM3 (1.0-4.8); MEAN CELL VOLUME 82.3 FL (80.0-100.0); MEAN CORPUSCULAR HEMOGLOBIN 25.4 PG (27.0-34.0); MEAN CORPUSCULAR HGB CONC 30.8 % (32.0-36.0); MONO % 7.3 % (0.0-8.0); NEUT % 63.8 % (16.0-70.0); PLATELET COUNT 290 TH/MM3 (150-450); RED BLOOD COUNT 4.83 MIL/MM3 (4.50-5.90); RED CELL DISTRIBUTION WIDTH 16.8 % (11.6-17.2); WHITE BLOOD COUNT 10.5 TH/MM3 (4.0-11.0)
[2017-01-29] MEDS: ACETAMINOPHEN/HYDROcodone 325 MG/5 MG TAB PO PRN ×2 (10:33→20:45)
[2017-01-29 10:37] LABS: ALT (GPT) 32 U/L (12-78); ANION GAP 6 MEQ/L (5-15); AST (GOT) 19 U/L (15-37); BICARBONATE 32.3 MEQ/L (21.0-32.0); BLOOD UREA NITROGEN 17 MG/DL (7-18); CHLORIDE 99 MEQ/L (98-107); GLOMERULAR FILTRATION RATE 87 ML/MIN (>89); POTASSIUM 3.9 MEQ/L (3.5-5.1); SODIUM (NA) 137 MEQ/L (136-145)
[2017-01-29 10:39] LABS: ALKALINE PHOSPHATASE 137 U/L (45-117); TOTAL BILIRUBIN ADULT 0.5 MG/DL (0.2-1.0)
--- NOTE | 2017-01-29 14:28 | EKG ---
Date Performed: 01/28/2017 Time Performed: 12:15:32 PTAGE: 51 years EKG: SINUS TACHYCARDIA LEFT ATRIAL ENLARGEMENT MARKED LEFT AXIS DEVIATION INCOMPLETE RIGHT BUNDL E BRANCH BLOCK NONSPECIFIC ST & T-WAVE ABNORMALITY Loss of R wave V3,V4-possible lead placement mckeon e, cannot ruleout inoccurent injury Clinical correlation is recommended ABNORMAL ECG PREVIOUS TRACING : 01/10/2017 08.35 DOCTOR: Deyvi Galan Interpretating Date/Time 01/29/2017 14:28:24
--- NOTE | 2017-01-29 16:56 | EC ---
Study Study Date:01/29/2017 STUDY CONCLUSIONS SUMMARY - Left ventricle: The cavity size was mildly dilated. Wall thickness was normal. Systolic function was severely reduced. The estimated ejection fraction was in the range of 20% to 25%. Diffuse hypokinesis. No evidence of thrombus noted in the apex as previously noted. - Right ventricle: The cavity size was mildly dilated. - Tricuspid valve: Mild-moderate regurgitation. If LV function is below 40, please consider prescribing an ACEI or ARB or document rationale for non-use. PROCEDURE DATA STUDY STATUS: Elective. Procedure: Transthoracic echocardiography. Image quality was good. Scanning was performed from the parasternal, apical, and subcostal acoustic windows. Study completion: The patient tolerated the procedure well. Transthoracic echocardiography. M-mode, complete 2D, complete spectral Doppler, and color Doppler. Patient status: Inpatient. CARDIAC ANATOMY LEFT VENTRICLE: The cavity size was mildly dilated. Wall thickness was normal. Systolic function was severely reduced. The estimated ejection fraction was in the range of 20% to 25%. Diffuse hypokinesis. No evidence of thrombus in the apex as previously noted. AORTIC VALVE: The valve appears to be grossly normal. Doppler: There was no stenosis. No significant regurgitation. Peak gradient: 13mm Hg (S). MITRAL VALVE: The valve appears to be grossly normal. No evidence of vegetation. Doppler: There was no evidence for stenosis. Trace regurgitation. Peak gradient: 4mm Hg (D). LEFT ATRIUM: The atrium was at the upper limits of normal in size. RIGHT VENTRICLE: The cavity size was mildly dilated. PULMONIC VALVE: Not well visualized. Doppler: There was no evidence for stenosis. No significant regurgitation. TRICUSPID VALVE: The valve appears to be grossly normal. Doppler: There was no evidence for stenosis. Mild-moderate regurgitation. PERICARDIUM: There was no pericardial effusion. BASIC MEASUREMENTS ADULT Normal Left ventricle LV internal dimension, ED, chordal level, *53.9 mm 43-52 PLAX LV posterior wall thickness, ED 7.01 mm IVS/LVPW ratio, ED 1.16 <1.3 Volume, ED, MOD, 1-plane 121 ml Volume, ES, MOD, 1-plane 95 ml Ejection fraction, MOD, 1-plane 21 % Stroke volume, MOD, 1-plane 26 ml Ventricular septum Septal thickness, ED 8.1 mm Aortic valve Leaflet separation 22 mm 15-26 Left atrium Anterior-posterior dimension 37 mm Right ventricle RV internal dimension, ED, PLAX 27.2 mm 19-38 BASIC MEASUREMENTS ADULT Normal Aortic valve Leaflet separation 22 mm 15-26 Aorta Root diameter, ED 32 mm 20-37 DOPPLER MEASUREMENTS ADULT Normal Aortic valve Peak velocity, S 181 cm/s Peak gradient, S 13 mm Hg Mitral valve Peak E-wave velocity 103 cm/s Peak A-wave velocity 35 cm/s Peak gradient, D 4 mm Hg Peak E/A ratio 2.9 Tricuspid valve Regurgitant peak velocity 213 cm/s Peak RV-RA gradient, S 18 mm Hg Maximal regurgitant velocity 213 cm/s LEGEND: Mean values are shown as u=mean value. Asterisk (*) bradley values outside specified normal range. Prepared and signed by Tam Feliciano [id number]
[2017-01-30] VITALS (12 sets, daily range): BP systolic 94–121; BP diastolic 63–86; PULSE 92–104; RESP 12–24; TEMP 97.3–97.9; O2SAT 96–100
[2017-01-30] MEDS: MORPHINE SULFATE 4 MG/ML INJ IV PUSH PRN ×5 (02:37→22:46)
[2017-01-30] MEDS: RESP: ALBUTEROL 2.5 MG/IPRATROPIUM 0.5 MG NEB (SCH) NEB ×5 (04:00→19:54)
[2017-01-30 04:25] LABS: BICARBONATE 31.4 MEQ/L (21.0-32.0); POTASSIUM 4.1 MEQ/L (3.5-5.1)
[2017-01-30] MEDS: metroNIDAZOLE 500 MG TAB PO SCH ×3 (04:40→21:41)
[2017-01-30 04:41] LABS: BASOPHIL # 0.1 TH/MM3 (0-0.2); BASOPHIL % 1.4 % (0.0-2.0); EOSINOPHIL # 0.7 TH/MM3 (0-0.4); EOSINOPHIL % 7.8 % (0.0-4.0); HEMATOCRIT 33.6 % (39.0-51.0); HEMO FLAGS DIFF FINAL; LYMPH % 26.3 % (9.0-44.0); LYMPHOCYTE # 2.4 TH/MM3 (1.0-4.8); MEAN CELL VOLUME 81.6 FL (80.0-100.0); MEAN CORPUSCULAR HEMOGLOBIN 25.9 PG (27.0-34.0); MEAN CORPUSCULAR HGB CONC 31.8 % (32.0-36.0); NEUT % 55.5 % (16.0-70.0); PLATELET COUNT 266 TH/MM3 (150-450); RED BLOOD COUNT 4.12 MIL/MM3 (4.50-5.90); RED CELL DISTRIBUTION WIDTH 16.3 % (11.6-17.2)
[2017-01-30] MEDS: ACETAMINOPHEN/HYDROcodone 325 MG/5 MG TAB PO PRN ×5 (05:35→21:41)
[2017-01-30] MEDS: SODIUM CHLORIDE 0.9% FLUSH 10 ML FLUSH IV FLUSH SCH ×2 (09:26→21:00)
[2017-01-30] MEDS: SPIRONOLACTONE 25 MG TAB PO SCH (09:26)
[2017-01-30] MEDS: ALLOPURINOL 300 MG TAB PO SCH (09:26)
[2017-01-30] MEDS: RIVAROXABAN 20 MG TAB PO SCH (09:26)
[2017-01-30] MEDS: GABAPENTIN 300 MG CAP PO SCH ×3 (09:26→17:36)
[2017-01-30] MEDS: FUROSEMIDE 40 MG/4 ML VIAL IV PUSH SCH (09:26)
--- NOTE | 2017-01-30 11:57 | HHI.FPPN ---
Subjective Remarks Patient is doing well this morning. He has had 2 bowel movements this morning. Pain is controlled with medications. Denies fever, chills, nausea, vomiting. Nursing reports patient has done well overnight. Blood pressures have remained around 110-120 systolic (Favian Ricks MD R2) Objective Vitals Vital Signs Date Time Temp Pulse Resp B/P Pulse Ox O2 Delivery O2 Flow Rate FiO2 01/30/17 10:00 104 01/30/17 08:00 96 01/30/17 08:00 97.6 102 14 121/86 100 01/30/17 07:00 99 Room Air 01/30/17 06:00 100 01/30/17 04:00 104 01/30/17 04:00 97.5 98 24 106/70 98 01/30/17 02:00 100 01/30/17 00:00 97.6 95 12 94/63 97 01/30/17 00:00 94 01/29/17 22:00 96 01/29/17 21:04 100 21 01/29/17 20:00 97.5 104 23 103/73 100 01/29/17 20:00 106 01/29/17 19:00 100 Room Air 01/29/17 18:00 103 01/29/17 16:46 20 01/29/17 16:21 20 01/29/17 16:00 98.7 108 25 111/71 100 01/29/17 16:00 84 01/29/17 14:00 99 01/29/17 12:00 99 01/29/17 12:00 98.5 98 22 111/64 98 I/O 01/29/17 01/29/17 01/29/17 01/30/17 01/30/17 01/30/17 07:00 15:00 23:00 07:00 15:00 23:00 Intake Total 100 ml 702 ml 480 ml 480 ml Output Total 1400 ml 550 ml 600 ml Balance 100 ml -698 ml -70 ml -120 ml Intake Oral 100 ml 600 ml 480 ml 480 ml IV Total 102 ml 0 ml 0 ml Output Urine Total 1400 ml 550 ml 600 ml # Voids 1 1 # Bowel Movements 1 0 0 1 (Favian Ricks MD R2) Result Diagram: 01/30/17 0341 01/30/17 0341 Objective Remarks GENERAL: in NAD, no resp distress, nontoxic. Sitting comfortably in chair. HEENT: NCAT, EOMI, no scleral icterus, no conjunctival injection. MMM. NECK: Supple, no meningeal signs. CV:Rate 100s. Regular. S1 S2 CHEST/PULM: Crackles at bases. Good air movement. No wheezes ABD/GI: +BS, soft, nondistended. Mild tenderness throughout abdomen. No rebound , no guarding. EXT: 2+ DP pulses. No calf tenderness. Borders of erythema that are marked have dramatically improved on lower extremities. : No CVAT. NEURO: Awake, alert. Normal muscle tone. Grossly WNL. SKIN: No rashes, no jaundice. Lower extremities as above. PSYCH: Mood and affect are appropriate. Speech fluent. Does not appear to respond to internal stimuli. (Favian Ricks MD R2) A/P Assessment and Plan 51yo gentleman admitted for CHF exacerbation and C diff colitis Discharge Planning Pending continued clinical improvement. (Favian Ricks MD R2) Attending Attestation Patient seen and examined, discussed with Dr. Ricks. I agree with assessment and management as documented and discussed with me. Pt without complaints. He reports 2 loose BMs (more formed than previous) today. Abd pain improved. SOB improving, but not quite at baseline. Negative fluid balance. Anticipate possible d/c tomorrow. (Tram Baires MD) Problem List: (1) Acute on chronic congestive heart failure Status: Acute Plan: Recent echo with EF 20%. Patient is symptomatically improved - BNP on admission 1531 - Continue Lasix 40 mg IV daily. - Continue home spironolactone 25 mg po daily - Monitor Is/Os. (2) C. difficile colitis Status: Acute Plan: Diarrhea has improved somewhat with initiation of antibiotic therapy. Probiotic Flagyl 01/28/17 --> (3) Hypotension Status: Resolved Plan: Improved. Continue to monitor closely. 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 (5) Right kidney mass Status: Chronic Plan: Renal mass suspicious for RCC Patient was informed to have outpatient follow up with oncology within 2-3 weeks following his last discharge (Mid-January) Patient will need follow up with urology for nephrectomy as outpatient as well Monitor I/Os Patient continues to have mild ascites Cytology of peritoneal fluid negative for malignant cells. (6) COPD (chronic obstructive pulmonary disease) Status: Chronic Plan: Patient reports he has COPD not oxygen dependent. He is maintaining O2 sats on room air. Denies cigarette smoking history No home COPD meds on record Duonebs q4h prn SOB Albuterol q2h prn (7) HTN (hypertension) Status: Chronic Plan: Monitor vitals q4h Hold home Coreg, due to CHF exacerbation and hypotension. (8) Venous stasis Status: Acute Plan: Left lower extremity concerning for venous stasis vs cellulitis Appears to be more c/w venous stasis BRANDON tse (Favian Ricks MD R2) Problem Qualifiers (1) HTN (hypertension): Qualified Code: I10 - Essential hypertension Favian Ricks MD R2 Jan 30, 2017 11:57 Tram Baires MD Jan 30, 2017 21:42
[2017-01-30] MEDS: LACTOBACILLUS ACIDOPHILUS TAB PO SCH (17:36)
[2017-01-31] VITALS (8 sets, daily range): BP systolic 97–134; BP diastolic 63–79; PULSE 91–107; RESP 14–20; TEMP 95.5–98.3; O2SAT 92–100
[2017-01-31] MEDS: RESP: ALBUTEROL 2.5 MG/IPRATROPIUM 0.5 MG NEB (SCH) NEB ×5 (00:02→15:12)
[2017-01-31] MEDS: ACETAMINOPHEN/HYDROcodone 325 MG/5 MG TAB PO PRN ×3 (01:42→12:09)
[2017-01-31] MEDS: metroNIDAZOLE 500 MG TAB PO SCH ×2 (04:44→12:09)
[2017-01-31] MEDS: MORPHINE SULFATE 4 MG/ML INJ IV PUSH PRN ×2 (04:45→09:19)
--- NOTE | 2017-01-31 07:14 | HHI.FPPN ---
Subjective Remarks No acute events overnight. Afebrile. BPs ranging 97-121/60s-80s over past 24 hrs. 1600 cc UOP. Patient doing well overall this morning. States he has not had any more episodes of diarrhea. Reports about 5-7 BMs over past 24 hours, all formed. No visible blood or melena. Pt denies any fevers, no CP or SOB. (Lamonte Corrales MD R1) Objective Vitals Vital Signs Date Time Temp Pulse Resp B/P Pulse Ox O2 Delivery O2 Flow Rate FiO2 01/31/17 04:00 97.8 99 14 97/63 95 01/31/17 03:24 98 21 01/31/17 00:05 97 21 01/31/17 00:00 97.3 100 16 114/79 100 01/30/17 21:45 Room Air 01/30/17 20:00 95 01/30/17 20:00 97.9 101 16 107/76 99 01/30/17 18:05 104 01/30/17 17:10 97.3 103 16 109/67 98 01/30/17 16:00 97.6 100 17 101/68 96 01/30/17 16:00 100 01/30/17 14:50 14 01/30/17 14:00 92 01/30/17 12:00 100 01/30/17 12:00 97.4 100 16 104/67 99 01/30/17 10:00 104 01/30/17 08:00 96 01/30/17 08:00 97.6 102 14 121/86 100 I/O 01/30/17 01/30/17 01/30/17 01/31/17 01/31/17 01/31/17 07:00 15:00 23:00 07:00 15:00 23:00 Intake Total 480 ml 720 ml Output Total 600 ml 1650 ml 1 ml Balance -120 ml -930 ml -1 ml Intake Oral 480 ml 720 ml IV Total 0 ml 0 ml Output Urine Total 600 ml 1650 ml 1 ml # Voids 2 # Bowel Movements 1 3 2 0 (Lamonte Corrales MD R1) Result Diagram: 01/30/17 0341 01/30/17 0341 Objective Remarks GENERAL: in NAD, no resp distress, nontoxic. Sitting comfortably in chair. HEENT: NCAT, EOMI, no scleral icterus, no conjunctival injection. MMM. NECK: Supple, no meningeal signs. CV: RRR, no m/r/g CHEST/PULM: Crackles at bases. Good air movement. No wheezes ABD/GI: +BS, soft, nondistended. Mild tenderness throughout abdomen. No rebound , no guarding. EXT: 2+ DP pulses. No calf tenderness. Borders of erythema that are marked have dramatically improved on lower extremities. NEURO: Awake, alert. Normal muscle tone. Grossly WNL. SKIN: No rashes, no jaundice. Lower extremities as above. PSYCH: Mood and affect are appropriate. Speech fluent. Does not appear to respond to internal stimuli. (Lamonte Corrales MD R1) A/P Assessment and Plan 51yo gentleman admitted for CHF exacerbation and C diff colitis Discharge Planning Stable for discharge today Patient will need f/u w/ PCP, oncology, and urology per recommendations from previous hospitalization (Lamonte Corrales MD R1) Attending Attestation Patient seen and examined, discussed with Dr. Corrales. I agree with assessment and management as documented and discussed with me. Pt reports he is back to baseline regarding his breathing. He has had 5 BMs since yesterday, but these were formed. He is tolerating PO flagyl. Discharge home today. Case management to work with patient re: Blue card and medication filling. (Tram Baires MD) Problem List: (1) Acute on chronic congestive heart failure Status: Acute Plan: Recent echo with EF 20%. Patient is symptomatically improved - BNP on admission 1531, improved on repeat BNP - Continue Lasix 40 mg IV daily. Transition to lasix 40 mg po bid for outpatient - Continue home spironolactone 25 mg po daily - Monitor Is/Os. (2) C. difficile colitis Status: Acute Plan: Diarrhea has resolved with initiation of antibiotic therapy. Continue Probiotics Flagyl 500 mg po TID 01/28/17 --> to complete 14 day course (3) Hypotension Status: Resolved Plan: Improved. Continue to monitor closely. 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 (5) Right kidney mass Status: Chronic Plan: Renal mass suspicious for RCC Patient was informed to have outpatient follow up with oncology within 2-3 weeks following his last discharge (Mid-January) Patient will need follow up with urology for nephrectomy as outpatient as well Monitor I/Os Patient continues to have mild ascites Cytology of peritoneal fluid negative for malignant cells. (6) COPD (chronic obstructive pulmonary disease) Status: Chronic Plan: Patient reports he has COPD not oxygen dependent. He is maintaining O2 sats on room air. Denies cigarette smoking history No home COPD meds on record Duonebs q4h prn SOB Albuterol q2h prn (7) HTN (hypertension) Status: Chronic Plan: Monitor vitals q4h Hold home Coreg, due to CHF exacerbation and hypotension. (8) Venous stasis Status: Acute Plan: Left lower extremity concerning for venous stasis vs cellulitis Appears to be more c/w venous stasis BRANDON tse (Lamonte Corrales MD R1) Problem Qualifiers (1) HTN (hypertension): Qualified Code: I10 - Essential hypertension Lamonte Corrales MD R1 Jan 31, 2017 07:14 Tram Baires MD Jan 31, 2017 12:02
[2017-01-31 08:36] LABS: AUTOMATED NEUTROPHIL # 5.2 TH/MM3 (1.8-7.7); BASOPHIL # 0.1 TH/MM3 (0-0.2); BASOPHIL % 1.6 % (0.0-2.0); EOSINOPHIL # 0.7 TH/MM3 (0-0.4); EOSINOPHIL % 7.9 % (0.0-4.0); HEMATOCRIT 35.1 % (39.0-51.0); HEMO FLAGS DIFF FINAL; LYMPHOCYTE # 2.3 TH/MM3 (1.0-4.8); MEAN CELL VOLUME 82.5 FL (80.0-100.0); MEAN CORPUSCULAR HEMOGLOBIN 25.5 PG (27.0-34.0); MEAN CORPUSCULAR HGB CONC 30.9 % (32.0-36.0); MONO % 9.7 % (0.0-8.0); NEUT % 55.8 % (16.0-70.0); PLATELET COUNT 259 TH/MM3 (150-450); RED BLOOD COUNT 4.26 MIL/MM3 (4.50-5.90); RED CELL DISTRIBUTION WIDTH 16.3 % (11.6-17.2); WHITE BLOOD COUNT 9.4 TH/MM3 (4.0-11.0)
[2017-01-31 08:58] LABS: ANION GAP 6 MEQ/L (5-15); AST (GOT) 14 U/L (15-37); BICARBONATE 34.4 MEQ/L (21.0-32.0); BLOOD UREA NITROGEN 18 MG/DL (7-18); CHLORIDE 98 MEQ/L (98-107); GLOMERULAR FILTRATION RATE 85 ML/MIN (>89); POTASSIUM 3.6 MEQ/L (3.5-5.1); SODIUM (NA) 138 MEQ/L (136-145)
[2017-01-31 08:59] LABS: ALT (GPT) 27 U/L (12-78)
[2017-01-31 09:01] LABS: ALKALINE PHOSPHATASE 116 U/L (45-117); TOTAL BILIRUBIN ADULT 0.4 MG/DL (0.2-1.0)
[2017-01-31] MEDS: FUROSEMIDE 40 MG/4 ML VIAL IV PUSH SCH (09:18)
[2017-01-31] MEDS: GABAPENTIN 300 MG CAP PO SCH ×2 (09:18→12:09)
[2017-01-31] MEDS: LACTOBACILLUS ACIDOPHILUS TAB PO SCH ×2 (09:18→12:09)
[2017-01-31] MEDS: SODIUM CHLORIDE 0.9% FLUSH 10 ML FLUSH IV FLUSH SCH (09:18)
[2017-01-31] MEDS: ALLOPURINOL 300 MG TAB PO SCH (09:18)
[2017-01-31] MEDS: SPIRONOLACTONE 25 MG TAB PO SCH (09:18)
[2017-01-31] MEDS: RIVAROXABAN 20 MG TAB PO SCH (09:18)
[2017-01-31] MEDS ORDERED: METR-1 PO (11:14)
[2017-01-31] MEDS ORDERED: FURO1TAB60 PO (11:14)
[2017-01-31] MEDS ORDERED: LACT PO (11:14)
[2017-01-31] MEDS ORDERED: NEUR300C PO (11:14)
--- NOTE | 2017-01-31 11:16 | HHI.DCPOC ---
Discharge Care Plan Diagnosis: (1) Left ventricular thrombosis without [place] (2) C. difficile colitis (3) Right kidney mass (4) CHF (congestive heart failure) Goals to Promote Your Health * To prevent worsening of your condition and complications, follow up with a primary care physician, oncologist, and urologist. Directions to Meet Your Goals Take your medications as prescribed Follow your dietary instruction Follow activity as directed Keep your appointments as scheduled Take your immunizations and boosters as scheduled If your symptoms worsen call your PCP, if no PCP go to Urgent Care Center or Emergency Room Smoking is Dangerous to Your Health. Avoid second hand smoke Call the 24-hour hour crisis hotline for domestic abuse at Lamonte Corrales MD R1 Jan 31, 2017 11:16
--- NOTE | 2017-01-31 12:54 | HHI.DS ---
Discharge Summary Admission Date Jan 29, 2017 at 07:02 Discharge Date: Jan 31, 2017 Admitting Diagnosis CHF, chronic abdominal pain (1) Acute on chronic congestive heart failure Diagnosis: Principal Plan: Recent echo with EF 20%. Patient is symptomatically improved - BNP on admission 1531, improved on repeat BNP - Continue Lasix 40 mg IV daily. Transition to lasix 40 mg po bid for outpatient - Continue home spironolactone 25 mg po daily - Monitor Is/Os. (2) C. difficile colitis Diagnosis: Principal Plan: Diarrhea has resolved with initiation of antibiotic therapy. Continue Probiotics Flagyl 500 mg po TID 01/28/17 --> to complete 14 day course (3) Hypotension Diagnosis: Principal Plan: Improved. Continue to monitor closely. (4) Left ventricular thrombosis without [place] Diagnosis: Secondary Plan: Patient was found to have a left ventricular thrombus on echo from 12/27 and was started on heparin with bridging to Coumadin during his previous hospitalization here Patient was discharged on Xarelto Continue home Xarelto. (5) Right kidney mass Diagnosis: Secondary Plan: Renal mass suspicious for RCC Patient was informed to have outpatient follow up with oncology within 2-3 weeks following his last discharge (Mid-January) Patient will need follow up with urology for nephrectomy as outpatient as well Monitor I/Os Patient continues to have mild ascites Cytology of peritoneal fluid negative for malignant cells. (6) COPD (chronic obstructive pulmonary disease) Diagnosis: Secondary Plan: Patient reports he has COPD not oxygen dependent. He is maintaining O2 sats on room air. Denies cigarette smoking history No home COPD meds on record Duonebs q4h prn SOB Albuterol q2h prn (7) HTN (hypertension) Diagnosis: Secondary Plan: Monitor vitals q4h Hold home Coreg, due to CHF exacerbation and hypotension. (8) Venous stasis Diagnosis: Secondary Plan: Left lower extremity concerning for venous stasis vs cellulitis Appears to be more c/w venous stasis BRANDON tse Consultants None Brief History Patient is a 51 year old male with h/o CHF, COPD, HTN who presents to the ED with c/o dyspnea and worsening lower extremity edema, as well as watery diarrhea , decreased UOP, and abdominal pain. The patient was recently discharged here from the hospital on 01/23/2017. He states he has noticed worsening lower extremity edema since then as well as DECKER and orthopnea. He states to me that the only dose of Lasix he has missed recently is today's dose. He also reports 20 episodes of watery diarrhea daily over the past 3 days. Denies visible blood in his stools, melena, or foul-smelling stools. He states he has not had diarrhea like this in the past. He reports nonspecific and generalized abdominal pain. Denies fevers, chest pain, cough. He reports decreased UOP over the past 3 days; denies dysuria or hematuria. The patient was recently admitted here at [facility] on 12/27 due to a CHF exacerbation treated with IV Lasix as well as bilateral pleural effusions, he underwent an ultrasound-guided thoracentesis on 01/04/17. He was found to have a left ventricular thrombus on echo from 12/27 and was started on heparin with bridging to Coumadin. He was also treated for pneumonia and was given cefepime from 01/01-01/09 as well as azithromycin. He was discharged on 01/09 however presented again on 01/11 due to sepsis secondary to pneumonia and left lower extremity cellulitis, patient was treated with Zosyn and vancomycin and later PO Keflex. The patient was also found to have a renal mass noted on ultrasound and CT that was concerning for renal cell carcinoma. Oncology was consulted. A renal biopsy was done. Urology was also consulted who requested an abdominal MRI which showed heterogeneous solid right renal mass centered in the midpole. Urology recommendations were for the patient likely needing to pursue a nephrectomy after the patient is taken off anticoagulation which would be done as an outpatient. Cytology of peritoneal fluid following a paracentesis was negative for malignant cells. CBC/BMP: 01/31/17 0659 01/31/17 0659 Significant Findings Laboratory Tests Test 01/28/17 01/29/17 01/30/17 01/31/17 21:15 09:39 03:41 06:59 Stool C. difficile Toxin (PCR) POSITIVE (NEGATIVE) Stl C. difficile Toxin PRESUMPTIVE Epiderm 027 POSITIVE (NEGATIVE) Hemoglobin 12.3 GM/DL 10.7 GM/DL 10.9 GM/DL (13.0-17.0) (13.0-17.0) (13.0-17.0) Mean Corpuscular Hemoglobin 25.4 PG 25.9 PG 25.5 PG (27.0-34.0) (27.0-34.0) (27.0-34.0) Mean Corpuscular Hemoglobin 30.8 % 31.8 % 30.9 % Concent (32.0-36.0) (32.0-36.0) (32.0-36.0) Eosinophils (%) (Auto) 5.7 % (0.0-4.0) 7.8 % (0.0-4.0) 7.9 % (0.0-4.0) Eosinophils # (Auto) 0.6 TH/MM3 0.7 TH/MM3 0.7 TH/MM3 (0-0.4) (0-0.4) (0-0.4) Carbon Dioxide Level 32.3 MEQ/L 34.4 MEQ/L (21.0-32.0) (21.0-32.0) Estimat Glomerular Filtration 87 ML/MIN (>89) 85 ML/MIN (>89) Rate Alkaline Phosphatase 137 U/L (45-117) Troponin I LESS THAN 0.02 NG/ML (0.02-0.05) B-Type Natriuretic Peptide 1233 PG/ML (0-100) Albumin 3.2 GM/DL 3.1 GM/DL (3.4-5.0) (3.4-5.0) Red Blood Count 4.12 MIL/MM3 4.26 MIL/MM3 (4.50-5.90) (4.50-5.90) Hematocrit 33.6 % 35.1 % (39.0-51.0) (39.0-51.0) Monocytes (%) (Auto) 9.0 % (0.0-8.0) 9.7 % (0.0-8.0) Blood Urea Nitrogen 21 MG/DL (7-18) Random Glucose 111 MG/DL (74-106) Aspartate Amino Transf 14 U/L (15-37) (AST/SGOT) Imaging Abdomen ultrasound 01/28: Small volume ascites which is insufficient volume for paracentesis Chest x-ray 01/28: Mildly improved small right pleural effusion with associated right lower lobe airspace disease. Mild cardiomegaly with mild positive fluid balance Chest x-ray 01/29: Cardiomegaly and findings of congestive heart failure. The findings worsened when compared with the prior examination. PE at Discharge GENERAL: in NAD, no resp distress, nontoxic. Sitting comfortably in chair. HEENT: NCAT, EOMI, no scleral icterus, no conjunctival injection. MMM. NECK: Supple, no meningeal signs. CV: RRR, no m/r/g CHEST/PULM: Crackles at bases. Good air movement. No wheezes ABD/GI: +BS, soft, nondistended. Mild tenderness throughout abdomen. No rebound , no guarding. EXT: 2+ DP pulses. No calf tenderness. Borders of erythema that are marked have dramatically improved on lower extremities. NEURO: Awake, alert. Normal muscle tone. Grossly WNL. SKIN: No rashes, no jaundice. Lower extremities as above. PSYCH: Mood and affect are appropriate. Speech fluent. Does not appear to respond to internal stimuli. Hospital Course Patient was given 60 mg of IV Lasix in the ED. He had prompt adequate urine output following this dose of Lasix. Troponins were less than 0.02 2. The patient was continued on Lasix IV 40 mg daily. The night of his admission he did have hypotension down to a blood pressure of 73/65. The patient at that time was asymptomatic. He did not have any complaints, no chest pain, no shortness of breath. He was transferred to the ICU for closer monitoring from nursing. He was found to be positive for C. difficile. He was then started on by mouth Flagyl. His hospital course was unremarkable thereafter and he was transferred out of the ICU as his blood pressures remained within normal limits and stable. His BNP trended down and clinically the patient improved without any chest pain or shortness of breath. He had very good urine output with his Lasix. He will be discharged on Lasix 40 mg by mouth twice a day. He was instructed to follow-up with his primary care physician, oncologist, and a urologist. Pt Condition on Discharge: Stable Discharge Disposition: Discharge Home Discharge Instructions DIET: Follow Instructions for: Heart Healthy Diet Activities you can perform: Weight Bearing as Bry Follow up Referrals: Oncology - 1 Week PCP Follow-up - 1 Week Urology - 1 Week New Orders: BASIC METABOLIC PROF - 1 Week New Medications: Furosemide (Lasix) 40 Mg Tab 40 MG PO BID #60 Ref 0 TAB Gabapentin (Neurontin) 300 Mg Cap 900 MG PO TID #30 CAP Lactobacillus Acidophilus (Acidophilus/l-Sporogenes) 1 Tab Tab 1 TAB PO TID #60 TAB Metronidazole (Flagyl) 500 Mg Tab 500 MG PO Q8H #35 TAB Continued Medications: Allopurinol (Zyloprim) 300 Mg Tab 300 MG PO DAILY gout #30 TAB Rivaroxaban (Xarelto) 20 Mg Tab 20 MG PO DAILY cardiac thrombus #31 Ref 6 TAB Spironolactone (Aldactone) 25 Mg Tab 25 MG PO DAILY chf #30 TAB Discontinued Medications: Carvedilol (Coreg) 3.125 Mg Tab 3.125 MG PO Q12HR chf #62 TAB Furosemide (Furosemide) 40 Mg Tab 40 MG PO DAILY chf #31 TAB Gabapentin (Neurontin) 300 Mg Cap 300 MG PO TID #90 Ref 0 CAP Hydrocodone-Acetaminophen (Hydrocodone-Acetaminophen) 10-325 mg Tab 1 TAB PO Q6H PRN PAIN 3-10 #20 TAB Lamonte Corrales MD R1 Jan 31, 2017 12:54
[2017-02-01 10:30] LABS: RAPID PLASMA REAGIN SCREEN NON-REACTIVE (NON-REACTVE)
== END 2017-01-31 16:33 | disposition home or self-care (01) | DRG 292 ==
LOC: NEPC 10:57 → NEDA 13:27 → NEPFCDU 15:32 → N03A 01-29 05:45 → OBSVTOIN 01-29 07:02 → N04A 01-30 16:56
PROVIDERS: ADMIT Family Medicine; ATTEND Family Medicine
DX: I50.9 Heart failure, unspecified (principal); R18.8 Other ascites; J90 Pleural effusion, not elsewhere classified; A04.7 Enterocolitis due to Clostridium difficile; J44.0 Chronic obstructive pulmonary disease with (acute) lower respiratory infection; I11.0 Hypertensive heart disease with heart failure; N28.89 Other specified disorders of kidney and ureter; I87.8 Other specified disorders of veins; G47.30 Sleep apnea, unspecified; G89.29 Other chronic pain; I45.10 Unspecified right bundle-branch block; J45.909 Unspecified asthma, uncomplicated; K21.9 Gastro-esophageal reflux disease without esophagitis; M79.7 Fibromyalgia
CPT/HCPCS: 71010; 76705; 80048; 80053; 81001; 82550; 83605; 83880; 84484; 85025; 85610; 85730; 86592; 86703; 87040; 87493; 93005; 93306; 94640; 94664; 96361; 96374; 96375; G0378; J0131; J1940; J2270; J7040

== ENCOUNTER → 2017-02-12 | Outpatient (CLI) | payer OTHER ==
[~2017-02-12] MED LIST changes: -ALBU.5I NEB; +ALBU0.08 NEB; +BACL10TA PO; -CARV3.125 PO; -CEPH500C PO; +FURO1TAB60 PO; -FURO40TA PO; -GABA300C5 PO; -HYDR-3583 PO; +LACT PO; +METR-1 PO; +NEUR300C PO
--- NOTE | 2017-02-12 17:36 | RADRPT ---
EXAM DATE/TIME: 02/12/2017 14:36 CONSULTATION: Patient is kindly referred for evaluation of possible biopsy and ablation of a solid 4.5 x 4.8 x 5.8 cm and mid right renal pole mass. CT exam of 01/11/2017 is reviewed. The R.E.N.A.L. nephrectomy score is 9 (>4 cm, <50% exophytic, <4mm from ureter, and crosses polar danny e). This lesion is not technically amenable to the thermal ablation primarily due to size and proximi ty to the ureter (nearly abuts the ureter). Thank you for this consolidation. Rom Villagomez MD on February 12, 2017 at 17:24 Board Certified Radiologist. This report was verified electronically.
== END ==
LOC: HRAD 13:46
PROVIDERS: ATTEND Internal Medicine
DX: N28.89 Other specified disorders of kidney and ureter (principal)

== ENCOUNTER 2017-02-26 02:09 | Emergency (ER) | payer OTHER ==
[~2017-02-26] VITALS: Ht 185.4 cm; Wt 75.0 kg
[~2017-02-26 02:09] MED LIST changes: -ALBU0.08 NEB; -BACL10TA PO
[2017-02-26 02:14] VITALS: BP 121/83; PULSE 115; RESP 20; O2SAT 100
[2017-02-26] MEDS ORDERED: BACL10TA PO (02:38)
--- NOTE | 2017-02-26 02:53 | PD ---
HPI Chief Complaint: Respiratory Symptoms Time Seen by Provider: 02:37 Travel History International Travel<30 days: No Contact w/Intl Traveler<30days: No Traveled to known affect area: No History of Present Illness HPI HAS LONGSTANDING H/O COPD/CHF, STATES HE HAS NOT RUN OUT OF ANY OF HIS MEDS INCLUDING LASIX...C/O SOB WORSENING TODAY, NOT IMPROVING WITH HIS HOME MEDS, WORSE WITH LAYING SUPINE, DENIES CP. PFSH Past Medical History Arthritis: Yes Asthma: Yes Autoimmune Disease: No Blood Disorders: No Anxiety: Yes Depression: Yes Heart Rhythm Problems: No Cancer: No Cardiovascular Problems: Yes (CHF) High Cholesterol: No Chemotherapy: No Chest Pain: No Congestive Heart Failure: Yes COPD: Yes Diabetes: No Patient Takes Glucophage: No Diminished Hearing: No Endocrine: No Fibromyalgia: Yes GERD: Yes Genitourinary: Yes (mass left kidney) Hypertension: Yes Immune Disorder: No Musculoskeletal: Yes Neurologic: Yes Psychiatric: Yes Reproductive: No Respiratory: Yes (COPD) Integumentary: Yes (reoccuring shingles) Immunizations Current: Yes Migraines: Yes Radiation Therapy: No Renal Failure: Yes Sleep Apnea: Yes Thyroid Disease: No Tetanus Vaccination: < 5 Years Influenza Vaccination: No Past Surgical History Joint Replacement: Yes (LEFT KNEE X2) Other Surgery: Yes Social History Alcohol Use: No Tobacco Use: No Substance Use: No Allergies-Medications (Allergen,Severity, Reaction): Coded Allergies: Ibuprofen (Verified Allergy, Severe, Nausea/Vomiting, 02/26/17) Levaquin (Verified Allergy, Mild, EDEMA, 02/26/17) Ultram (Verified Allergy, Mild, ITCHING, 02/26/17) Reported Meds & Prescriptions Reported Meds & Active Scripts Active Lasix (Furosemide) 40 Mg Tab 40 Mg PO BID Acidophilus/l-Sporogenes (Lactobacillus Acidophilus) 1 Tab Tab 1 Tab PO TID Neurontin (Gabapentin) 300 Mg Cap 900 Mg PO TID Zyloprim (Allopurinol) 300 Mg Tab 300 Mg PO DAILY Xarelto (Rivaroxaban) 20 Mg Tab 20 Mg PO DAILY Aldactone (Spironolactone) 25 Mg Tab 25 Mg PO DAILY Reported Baclofen 10 Mg Tab 10 Mg PO Q8HR PRN Review of Systems Except as stated in HPI: all other systems reviewed are Neg Respiratory: Positive: Shortness of Breath, Orthopnea Physical Exam Narrative GENERAL: SKIN: Warm and dry. HEAD: Atraumatic. Normocephalic. EYES: Pupils equal and round. No scleral icterus. No injection or drainage. ENT: No nasal bleeding or discharge. Mucous membranes pink and moist. NECK: Trachea midline. POS JVD CARDIOVASCULAR: Regular rate and rhythm. RESPIRATORY: No accessory muscle use. CRACKLES BIBASILARLY GASTROINTESTINAL: Abdomen soft, non-tender, nondistended. Hepatic and splenic margins not palpable. MUSCULOSKELETAL: Extremities without clubbing, cyanosis, or 2+ [place] edema. No obvious deformities. NEUROLOGICAL: Awake and alert. No obvious cranial nerve deficits. Motor grossly within normal limits. Five out of 5 muscle strength in the arms and legs. Normal speech. PSYCHIATRIC: Appropriate mood and affect; insight and judgment normal. Data Data Last Documented VS Vital Signs Date Time Temp Pulse Resp B/P Pulse Ox O2 Delivery O2 Flow Rate FiO2 02/26/17 05:08 112 20 128/85 97 02/26/17 03:33 Room Air Orders Complete Blood Count With Diff (02/26/17 02:39) Comprehensive Metabolic Panel (02/26/17 02:39) B-Type Natriuretic Peptide (02/26/17 02:39) Act Partial Throm Time (Ptt) (02/26/17 02:39) Prothrombin Time / Inr (Pt) (02/26/17 02:39) Ckmb (Isoenzyme) Profile (02/26/17 02:39) Troponin I (02/26/17 02:39) Influenzae A/B Antigen (02/26/17 02:39) Iv Access Insert/Monitor (02/26/17 02:39) Electrocardiogram (02/26/17 02:39) Ecg Monitoring (02/26/17 02:39) Oximetry (02/26/17 02:39) Oxygen Administration (02/26/17 02:39) Chest, Single Ap (02/26/17 02:39) Ondansetron Inj (Zofran Inj) (02/26/17 04:00) CKMB (02/26/17 03:05) CKMB% (02/26/17 03:05) Bumetanide Inj (Bumex Inj) (02/26/17 04:15) Labs Laboratory Tests Test 02/26/17 03:05 Prothrombin Time 16.1 SEC Prothromb Time International 1.4 RATIO Ratio Activated Partial 25.6 SEC Thromboplast Time Sodium Level 137 MEQ/L Potassium Level 4.2 MEQ/L Chloride Level 102 MEQ/L Carbon Dioxide Level 23.9 MEQ/L Anion Gap 11 MEQ/L Blood Urea Nitrogen 26 MG/DL Creatinine 1.03 MG/DL Estimat Glomerular Filtration 76 ML/MIN Rate Random Glucose 91 MG/DL Calcium Level 9.2 MG/DL Total Bilirubin 1.0 MG/DL Aspartate Amino Transf 248 U/L (AST/SGOT) Alanine Aminotransferase 187 U/L (ALT/SGPT) Alkaline Phosphatase 113 U/L Total Creatine Kinase 123 U/L Creatine Kinase MB 5.7 NG/ML Troponin I 0.03 NG/ML B-Type Natriuretic Peptide 1978 PG/ML Total Protein 8.6 GM/DL Albumin 3.9 GM/DL [facility] Medical Decision Making Medical Screen Exam Complete: Yes Emergency Medical Condition: Yes Medical Record Reviewed: Yes Interpretation(s) ST 120, P MITR[place], INVERTED T WAVES I, AVL Differential Diagnosis PNA V COPD V CHF V PULM EDEMA Narrative Course PATIENT HAS E/O MILD TO MODERATE CHF, CHEST XRAY DID NOT SHOW ANY LARGE AMOUNT OF PULM EDEMA, NO HYPOXEMIA AND NO CP, ALSO NO SUPLEMENTAL OXYGEN REQUIRED DURING OBSERVATION PERIOD IN ED. PATIENT GIVEN BUMEX AND DIURESED WELL (ABOUT 1LITER)...PT REQUESTED ALBUTEROL NEB REFILL WELL Diagnosis Primary Impression: MILD CHF EXACERBATION Patient Instructions: General Instructions, Pulmonary Edema (ED) Scripts Albuterol Neb 2.5 Mg/3 Ml Neb2.5 Mg NEB Q4HR NEB #60 NEBULE Ref 0 While awake Prov:Kailash Leavitt MD 02/26/17 Disposition: 01 DISCHARGE HOME Condition: Stable Kailash Leavitt MD Feb 26, 2017 02:53
--- NOTE | 2017-02-26 02:56 | RADRPT ---
EXAM DATE/TIME: 02/26/2017 02:37 [facility] COMPARISON: CHEST SINGLE AP, January 29, 2017, 4:19. INDICATIONS : Shortness of breath. MEDICAL HISTORY : Chronic obstructive pulmonary disease. Congestive heart failure. Hypertension. GERD, Renal failur e, Asthma SURGICAL HISTORY : None. ENCOUNTER: Initial ACUITY: 1 day PAIN SCORE: 7/10 LOCATION: Bilateral chest FINDINGS: The lungs are clear without infiltrate, nodule, or mass. There is no appreciable pleural effusion fo r technique. Heart and mediastinum are unremarkable. CONCLUSION: No acute cardiopulmonary disease. Letty Dee MD on February 26, 2017 at 2:54 Board Certified Radiologist. This report was verified electronically.
[2017-02-26 03:33] VITALS: O2SAT 95
[2017-02-26 03:43] LABS: APTT (PATIENT) 25.6 SEC (24.3-30.1); INTERNATIONAL NORMALIZED RATIO 1.4 RATIO; PROTHROMBIN TIME - PATIENT 16.1 SEC (9.8-11.6)
[2017-02-26 03:53] LABS: ALT (GPT) 187 U/L (12-78); ANION GAP 11 MEQ/L (5-15); AST (GOT) 248 U/L (15-37); BICARBONATE 23.9 MEQ/L (21.0-32.0); BLOOD UREA NITROGEN 26 MG/DL (7-18); CHLORIDE 102 MEQ/L (98-107); GLOMERULAR FILTRATION RATE 76 ML/MIN (>89); POTASSIUM 4.2 MEQ/L (3.5-5.1); SODIUM (NA) 137 MEQ/L (136-145)
[2017-02-26 03:57] LABS: ALKALINE PHOSPHATASE 113 U/L (45-117); CREATINE KINASE 123 U/L (39-308)
[2017-02-26] MEDS ORDERED: ONDANSETRON HCL 4 MG/2 ML VIAL IV PUSH ONE (04:00)
[2017-02-26 04:08] LABS: CKMB 5.7 NG/ML (0.5-3.6)
[2017-02-26] MEDS ORDERED: BUMETANIDE INJ 1 MG/4 ML VIAL IV PUSH ONE (04:15)
[2017-02-26 04:46] LABS: AUTOMATED NEUTROPHIL # 8.3 TH/MM3 (1.8-7.7); BASOPHIL # 0.1 TH/MM3 (0-0.2); BASOPHIL % 1.2 % (0.0-2.0); EOSINOPHIL # 0.2 TH/MM3 (0-0.4); EOSINOPHIL % 1.6 % (0.0-4.0); HEMATOCRIT 41.2 % (39.0-51.0); HEMO FLAGS DIFF FINAL; LYMPH % 18.6 % (9.0-44.0); LYMPHOCYTE # 2.2 TH/MM3 (1.0-4.8); MEAN CELL VOLUME 79.2 FL (80.0-100.0); MEAN CORPUSCULAR HEMOGLOBIN 24.8 PG (27.0-34.0); MEAN CORPUSCULAR HGB CONC 31.3 % (32.0-36.0); MONO % 8.2 % (0.0-8.0); NEUT % 70.4 % (16.0-70.0); PLATELET COUNT 241 TH/MM3 (150-450); RED CELL DISTRIBUTION WIDTH 18.2 % (11.6-17.2); WHITE BLOOD COUNT 11.8 TH/MM3 (4.0-11.0)
[2017-02-26 05:08] VITALS: BP 128/85
[2017-02-26] MEDS ORDERED: ALBU0.08 NEB (05:15)
--- NOTE | 2017-02-26 08:30 | EKG ---
Date Performed: 02/26/2017 Time Performed: 03:32:45 PTAGE: 51 years EKG: SINUS TACHYCARDIA LEFT ANTERIOR FASCICULAR BLOCK Nonspecific T wave changes ABNORMAL ECG NO PREVIOUS TRACING DOCTOR: Leandro Dugan Interpretating Date/Time 02/26/2017 08:29:05
== END 2017-02-26 05:20 | disposition home or self-care (01) ==
LOC: NEPC 02:09
DX: I50.9 Heart failure, unspecified (principal); J45.909 Unspecified asthma, uncomplicated; F41.9 Anxiety disorder, unspecified; J44.9 Chronic obstructive pulmonary disease, unspecified; M79.7 Fibromyalgia; K21.9 Gastro-esophageal reflux disease without esophagitis; I10 Essential (primary) hypertension; G47.30 Sleep apnea, unspecified; Z79.899 Other long term (current) drug therapy
CPT/HCPCS: 71010; 80053; 82550; 82552; 83880; 84484; 85025; 85610; 85730; 87804; 93005; 96374; 96375; 99285; J2405

== ENCOUNTER 2017-03-10 12:21 | Inpatient (IN) | payer OTHER ==
[~2017-03-10] VITALS: Ht 185.4 cm; Wt 90.5 kg
[~2017-03-10 12:21] MED LIST changes: +ALBU0.08 NEB; +BACL10TA PO; -METR-1 PO
[2017-03-10 12:26] VITALS: BP 120/74; PULSE 120; RESP 28; TEMP 98; O2SAT 96
--- NOTE | 2017-03-10 13:08 | RADRPT ---
EXAM DATE/TIME: 03/10/2017 12:56 [facility] COMPARISON: CHEST SINGLE AP, February 26, 2017, 2:37. INDICATIONS : Chest tightness, chest pressure, swollen legs. MEDICAL HISTORY : Chronic obstructive pulmonary disease. Congestive heart failure. SURGICAL HISTORY : None. ENCOUNTER: Initial ACUITY: 1 day PAIN SCORE: 0/10 LOCATION: Bilateral chest FINDINGS: The heart is enlarged. There is diffuse interstitial prominence and a small effusion at the right bas e. There is fluid in the fissures. Findings are consistent with mild congestive failure. Overall pérez ges appear similar to prior dated 02/26/17. The visualized bony structures are intact. CONCLUSION: 1. Congestive failure. Similar exam to prior. Josh Cadet MD on March 10, 2017 at 13:05 Board Certified Radiologist. This report was verified electronically.
[2017-03-10 14:14] LABS: AUTOMATED NEUTROPHIL # 7.5 TH/MM3 (1.8-7.7); BASOPHIL # 0.1 TH/MM3 (0-0.2); BASOPHIL % 0.9 % (0.0-2.0); EOSINOPHIL # 0.3 TH/MM3 (0-0.4); EOSINOPHIL % 2.8 % (0.0-4.0); HEMATOCRIT 38.7 % (39.0-51.0); HEMO FLAGS DIFF FINAL; LYMPH % 18.7 % (9.0-44.0); MEAN CELL VOLUME 77.8 FL (80.0-100.0); MEAN CORPUSCULAR HEMOGLOBIN 24.8 PG (27.0-34.0); MEAN CORPUSCULAR HGB CONC 31.8 % (32.0-36.0); NEUT % 70.6 % (16.0-70.0); PLATELET COUNT 291 TH/MM3 (150-450); RED BLOOD COUNT 4.98 MIL/MM3 (4.50-5.90); RED CELL DISTRIBUTION WIDTH 18.5 % (11.6-17.2); WHITE BLOOD COUNT 10.7 TH/MM3 (4.0-11.0)
[2017-03-10 14:24] LABS: APTT (PATIENT) 28.2 SEC (24.3-30.1); INTERNATIONAL NORMALIZED RATIO 1.4 RATIO; PROTHROMBIN TIME - PATIENT 15.8 SEC (9.8-11.6)
[2017-03-10 14:30] LABS: ANION GAP 8 MEQ/L (5-15); BICARBONATE 26.8 MEQ/L (21.0-32.0); BLOOD UREA NITROGEN 23 MG/DL (7-18); CHLORIDE 101 MEQ/L (98-107); GLOMERULAR FILTRATION RATE 72 ML/MIN (>89); POTASSIUM 3.9 MEQ/L (3.5-5.1); SODIUM (NA) 136 MEQ/L (136-145)
[2017-03-10 14:35] LABS: CREATINE KINASE 174 U/L (39-308)
[2017-03-10 14:47] LABS: CKMB 4.9 NG/ML (0.5-3.6)
--- NOTE | 2017-03-10 14:54 | PD ---
HPI Chief Complaint: Cardiac Complaint Time Seen by Provider: 14:54 (Annalisa Gross) Travel History International Travel<30 days: No Contact w/Intl Traveler<30days: No Traveled to known affect area: No (Annalisa Gross) History of Present Illness HPI 51-year-old male with history of A. fib, on XARELTO, CHF, COPD, presents to emergency department for evaluation of worsening shortness of breath. Patient states he went to his primary care provider today to establish care and was sent to the emergency department. Patient reports shortness of breath even at rest. He is unable to lie flat to sleep at night. He reports no chest pain. He has had bilateral lower extremity edema that has been worsening. Denies any fever or chills. He has no other symptoms to report at this time. (Annalisa Gross) PFSH Past Medical History Hx Anticoagulant Therapy: Yes (XARELTO) Arthritis: Yes Asthma: Yes Autoimmune Disease: No Blood Disorders: No Anxiety: Yes Depression: Yes Heart Rhythm Problems: No Cancer: No Cardiovascular Problems: Yes High Cholesterol: No Chemotherapy: No Chest Pain: No Congestive Heart Failure: Yes COPD: Yes Diabetes: No Diminished Hearing: No Endocrine: No Fibromyalgia: Yes GERD: Yes Genitourinary: Yes (mass left kidney) Hypertension: Yes Immune Disorder: No Musculoskeletal: Yes Neurologic: Yes Psychiatric: Yes Reproductive: No Respiratory: Yes (COPD) Integumentary: Yes (reoccuring shingles) Immunizations Current: Yes Migraines: Yes Radiation Therapy: No Renal Failure: Yes Sleep Apnea: Yes Thyroid Disease: No (Annalisa Gross) Past Surgical History Joint Replacement: Yes (LEFT KNEE X2) Other Surgery: Yes (Annalisa Gross) Social History Alcohol Use: No Tobacco Use: No Substance Use: No (Annalisa Gross) Allergies-Medications (Allergen,Severity, Reaction): Coded Allergies: Ibuprofen (Verified Allergy, Severe, Nausea/Vomiting, 03/10/17) Levaquin (Verified Allergy, Mild, EDEMA, 03/10/17) Ultram (Verified Allergy, Mild, ITCHING, 03/10/17) Reported Meds & Prescriptions Reported Meds & Active Scripts Active Albuterol Neb (Albuterol Sulfate) 2.5 Mg/3 Ml Neb 2.5 Mg NEB Q4HR NEB While awake Lasix (Furosemide) 40 Mg Tab 40 Mg PO BID Acidophilus/l-Sporogenes (Lactobacillus Acidophilus) 1 Tab Tab 1 Tab PO TID Neurontin (Gabapentin) 300 Mg Cap 900 Mg PO TID Zyloprim (Allopurinol) 300 Mg Tab 300 Mg PO DAILY Xarelto (Rivaroxaban) 20 Mg Tab 20 Mg PO DAILY Aldactone (Spironolactone) 25 Mg Tab 25 Mg PO DAILY Reported Baclofen 10 Mg Tab 10 Mg PO Q8HR PRN (Gloria Prieto MD) Review of Systems Except as stated in HPI: all other systems reviewed are Neg (Annalisa Gross ) Physical Exam Narrative GENERAL: Well-nourished male patient, sitting on the bed, in no acute distress SKIN: Focused skin assessment warm/dry. HEAD: Atraumatic. Normocephalic. EYES: Pupils equal and round. No scleral icterus. No injection or drainage. ENT: No nasal bleeding or discharge. Mucous membranes pink and moist. NECK: Trachea midline. No JVD. CARDIOVASCULAR: Tachycardic rate, irregular rhythm No murmur appreciated. RESPIRATORY: No accessory muscle use. Diminished, coarse, with crackles to auscultation. Breath sounds equal bilaterally. GASTROINTESTINAL: Abdomen soft, non-tender, nondistended. Hepatic and splenic margins not palpable. MUSCULOSKELETAL: No obvious deformities. No clubbing. No cyanosis. 2+ bilateral lower extremity edema edema. NEUROLOGICAL: Awake and alert. No obvious cranial nerve deficits. Motor grossly within normal limits. Normal speech. PSYCHIATRIC: Appropriate mood and affect; insight and judgment normal. (Annalisa Gross) Data Data Orders Complete Blood Count With Diff (03/10/17 12:37) Basic Metabolic Panel (Bmp) (03/10/17 12:37) Ckmb (Isoenzyme) Profile (03/10/17 12:37) Troponin I (03/10/17 12:37) Iv Access Insert/Monitor (03/10/17 12:37) Ecg Monitoring (03/10/17 12:37) Oxygen Administration (03/10/17 12:37) Oximetry (03/10/17 12:37) Act Partial Throm Time (Ptt) (03/10/17 12:37) Prothrombin Time / Inr (Pt) (03/10/17 12:37) B-Type Natriuretic Peptide (03/10/17 12:37) Chest, Ap & Lat (03/10/17 12:37) CKMB (03/10/17 13:10) CKMB% (03/10/17 13:10) Furosemide Inj (Lasix Inj) (03/10/17 16:00) Admit Order (Ed Use Only) (03/10/17 15:48) (Gloria Prieto MD) MDM Medical Decision Making Medical Screen Exam Complete: Yes Emergency Medical Condition: Yes Medical Record Reviewed: Yes Differential Diagnosis CHF exacerbation versus COPD versus pneumonia versus influenza versus ACS versus electrolyte abnormality Narrative Course 51-year-old male presents to emergency department for evaluation of worsening shortness of breath, even at rest. Patient has lower extremity edema. And coarse breath sounds. He is placed on 2 L nasal cannula which she states helps him to feel a little less short of breath. Chest x-ray shows congestive heart failure Laboratory Tests Test 03/10/17 13:10 White Blood Count 10.7 TH/MM3 Red Blood Count 4.98 MIL/MM3 Hemoglobin 12.3 GM/DL Hematocrit 38.7 % Mean Corpuscular Volume 77.8 FL Mean Corpuscular Hemoglobin 24.8 PG Mean Corpuscular Hemoglobin 31.8 % Concent Red Cell Distribution Width 18.5 % Platelet Count 291 TH/MM3 Mean Platelet Volume 9.6 FL Neutrophils (%) (Auto) 70.6 % Lymphocytes (%) (Auto) 18.7 % Monocytes (%) (Auto) 7.0 % Eosinophils (%) (Auto) 2.8 % Basophils (%) (Auto) 0.9 % Neutrophils # (Auto) 7.5 TH/MM3 Lymphocytes # (Auto) 2.0 TH/MM3 Monocytes # (Auto) 0.7 TH/MM3 Eosinophils # (Auto) 0.3 TH/MM3 Basophils # (Auto) 0.1 TH/MM3 CBC Comment DIFF FINAL Differential Comment Prothrombin Time 15.8 SEC Prothromb Time International 1.4 RATIO Ratio Activated Partial 28.2 SEC Thromboplast Time Sodium Level 136 MEQ/L Potassium Level 3.9 MEQ/L Chloride Level 101 MEQ/L Carbon Dioxide Level 26.8 MEQ/L Anion Gap 8 MEQ/L Blood Urea Nitrogen 23 MG/DL Creatinine 1.07 MG/DL Estimat Glomerular Filtration 72 ML/MIN Rate Random Glucose 139 MG/DL Calcium Level 8.3 MG/DL Total Creatine Kinase 174 U/L Creatine Kinase MB 4.9 NG/ML Troponin I 0.04 NG/ML B-Type Natriuretic Peptide 2296 PG/ML BNP is 2296. Patient is given 40 mg IV Lasix. I discussed the patient with Dr. Rose. Patient will be admitted to [facility]. (Annalisa Gross) Narrative Course Construction Supervisor signing for document in draft. (Gloria Prieto MD) Diagnosis Primary Impression: CHF (congestive heart failure) Qualified Code: I50.9 - Acute on chronic congestive heart failure, unspecified congestive heart failure type Admitting Information Admitting Physician Requests: Admit (Annalisa Gross) Scripts Hydrocodone-Acetaminophen 10-325 mg Tab1 Tab PO Q6H PRN (PAIN SCALE 5 TO 10) # 15 TAB Ref 0 Prov:Toni Collado MD 03/19/17 Defibrillator Jacket 1 Ea Device #1 EA EXTERNAL ONCE Ref 0 Energy = 150 Joules; VT Threshold = 150 BPM; VF Threshold = 200 BPM Use up to 90 days only Prov:Yusuf Myles MD 03/12/17 Condition: Stable Annalisa Gross Mar 10, 2017 14:54 Gloria Prieto MD Mar 19, 2017 17:30 Mean Corpuscular Volume 77.8 FL Mean Corpuscular Hemoglobin 24.8 PG Mean Corpuscular Hemoglobin 31.8 % Concent Red Cell Distribution Width 18.5 % Platelet Count 291 TH/MM3 Mean Platelet Volume 9.6 FL Neutrophils (%) (Auto) 70.6 % Lymphocytes (%) (Auto) 18.7 % Monocytes (%) (Auto) 7.0 % Eosinophils (%) (Auto) 2.8 % Basophils (%) (Auto) 0.9 % Neutrophils # (Auto) 7.5 TH/MM3 Lymphocytes # (Auto) 2.0 TH/MM3 Monocytes # (Auto) 0.7 TH/MM3 Eosinophils # (Auto) 0.3 TH/MM3 Basophils # (Auto) 0.1 TH/MM3 CBC Comment DIFF FINAL Differential Comment Prothrombin Time 15.8 SEC Prothromb Time International 1.4 RATIO Ratio Activated Partial 28.2 SEC Thromboplast Time Sodium Level 136 MEQ/L Potassium Level 3.9 MEQ/L Chloride Level 101 MEQ/L Carbon Dioxide Level 26.8 MEQ/L Anion Gap 8 MEQ/L Blood Urea Nitrogen 23 MG/DL Creatinine 1.07 MG/DL Estimat Glomerular Filtration 72 ML/MIN Rate Random Glucose 139 MG/DL Calcium Level 8.3 MG/DL Total Creatine Kinase 174 U/L Creatine Kinase MB 4.9 NG/ML Troponin I 0.04 NG/ML B-Type Natriuretic Peptide 2296 PG/ML BNP is 2296. Patient is given 40 mg IV Lasix. I discussed the patient with Dr. Rose. Patient will be admitted to [facility] service. Diagnosis Primary Impression: CHF (congestive heart failure) Qualified Code: I50.9 - Acute on chronic congestive heart failure, unspecified congestive heart failure type Admitting Information Admitting Physician Requests: Admit Condition: Stable Annalisa Gross Mar 10, 2017 14:54
--- NOTE | 2017-03-10 15:53 | HHI.HP ---
[facility] Nora Dodge Admission Diagnosis acute on chronic CHF exacerbation Diagnoses: Chief Complaint: Shortness of breath. Travel History International Travel<30 Days: No Contact w/Intl Traveler <30 Da: No Traveled to Known Affected Are: No History of Present Illness Mr. Tineo is a pleasant 51 year old male with a history of HTN, COPD, LV thrombus, right kidney mass, CHF (Echo 01/29/17 w/ EF 20- 25%) who presents to the ED on 03/10/2017 due to shortness of breath, bilateral lower extremity edema. Since December of this year, he has been having shortness of breath. His dyspnea has been progressively getting worse. He has orthopnea. He went to a PCP to establish care today. Patient was advised to come to the ED due to shortness of breath. Patient reports no chest pain, fever, chills or cough. He reports about 30 lbs weight gain in the last 2 months. He denies any changes in bowel or bladder habits. Review of Systems Except as stated in HPI: all other systems reviewed are Neg Past Family Social History Past Medical History HTN, COPD, Fibromyalgia, GERD, CHF (Echo 12/28/16 w/ EF 20%) LV thrombus Renal mass. Past Surgical History Left knee replacement. Reported Medications Albuterol Neb (Albuterol Sulfate) 2.5 Mg/3 Ml Neb 2.5 Mg NEB Q4HR NEB While awake Lasix (Furosemide) 40 Mg Tab 40 Mg PO BID Acidophilus/l-Sporogenes (Lactobacillus Acidophilus) 1 Tab Tab 1 Tab PO TID Neurontin (Gabapentin) 300 Mg Cap 900 Mg PO TID Zyloprim (Allopurinol) 300 Mg Tab 300 Mg PO DAILY Xarelto (Rivaroxaban) 20 Mg Tab 20 Mg PO DAILY Aldactone (Spironolactone) 25 Mg Tab 25 Mg PO DAILY Reported Baclofen 10 Mg Tab 10 Mg PO Q8HR PRN Allergies: Coded Allergies: Ibuprofen (Verified Allergy, Severe, Nausea/Vomiting, 03/10/17) Levaquin (Verified Allergy, Mild, EDEMA, 03/10/17) Ultram (Verified Allergy, Mild, ITCHING, 03/10/17) Family History Brother - Heart disease. Social History Denies using tobacco, alcohol, illicit drugs. Physical Exam Vital Signs Vital Signs Date Time Temp Pulse Resp B/P Pulse Ox O2 Delivery O2 Flow Rate FiO2 03/10/17 15:07 111 24 Room Air 2 03/10/17 15:00 100 Nasal Cannula 2 03/10/17 12:26 98.0 120 28 120/74 96 Room Air Physical Exam GENERAL: This is a well-nourished, well-developed patient, in no apparent distress. SKIN: No rashes, ecchymoses or lesions. Warm and dry. HEAD: Atraumatic. Normocephalic. No temporal or scalp tenderness. EYES: Pupils equal round and reactive. No injection or drainage. ENT: Nose without bleeding, purulent drainage or septal hematoma. Airway patent. NECK: Trachea midline. No lymphadenopathy. Supple, nontender, no meningeal signs. CARDIOVASCULAR: Regular rate and rhythm without murmurs, gallops, or rubs. No JVD. RESPIRATORY: Moderate air entry. Bibasilar crackles. GASTROINTESTINAL: Abdomen soft, non-tender, nondistended. No guarding. MUSCULOSKELETAL: Extremities without clubbing, cyanosis. 2+ lower ext edema. NEUROLOGICAL: Awake and alert. Cranial nerves II through XII intact. No focal neurological deficits. Normal speech. Laboratory Laboratory Tests Test 03/10/17 13:10 White Blood Count 10.7 Red Blood Count 4.98 Hemoglobin 12.3 Hematocrit 38.7 Mean Corpuscular Volume 77.8 Mean Corpuscular Hemoglobin 24.8 Mean Corpuscular Hemoglobin 31.8 Concent Red Cell Distribution Width 18.5 Platelet Count 291 Mean Platelet Volume 9.6 Neutrophils (%) (Auto) 70.6 Lymphocytes (%) (Auto) 18.7 Monocytes (%) (Auto) 7.0 Eosinophils (%) (Auto) 2.8 Basophils (%) (Auto) 0.9 Neutrophils # (Auto) 7.5 Lymphocytes # (Auto) 2.0 Monocytes # (Auto) 0.7 Eosinophils # (Auto) 0.3 Basophils # (Auto) 0.1 CBC Comment DIFF FINAL Differential Comment Prothrombin Time 15.8 Prothromb Time International 1.4 Ratio Activated Partial 28.2 Thromboplast Time Sodium Level 136 Potassium Level 3.9 Chloride Level 101 Carbon Dioxide Level 26.8 Anion Gap 8 Blood Urea Nitrogen 23 Creatinine 1.07 Estimat Glomerular Filtration 72 Rate Random Glucose 139 Calcium Level 8.3 Total Creatine Kinase 174 Creatine Kinase MB 4.9 Troponin I 0.04 B-Type Natriuretic Peptide 2296 Result Diagram: 03/10/17 1310 03/10/17 1310 Imaging Last Impressions Chest X-Ray 03/10/17 1237 Signed Impressions: Service Date/Time: Friday, March 10, 2017 12:56 - CONCLUSION: 1. Congestive failure. Similar exam to prior. 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 Tineo is a 51 year old male with a history of LV thrombus, right renal mass, CHF who presents to the ED due to worsening shortness of breath. - Acute exacerbation of congestive heart failure - Systolic heart failure with reduced LV ejection fraction - Non-ischemic cardiomyopathy with EF 20-25%. - Patient is currently on Lasix and Spironolactone at home. No JAEL inhibitor or beta abhay noted. - Will continue Lasix 40mg IV Q12hrs. - Once patient is stable from CHF standpoint, consider starting Carvedilol 12.5mg BID. - Will start patient on Lisinopril 10mg Qday - titrate up. - Supplemental O2 to keep O2 sat > 90%. - COPD - Continue DuoNeb Q4hrs PRN - History of LV thrombus - Echo in 12/2016 showed LV thrombus. Repeat Echo from 01/29/2017 shows no LV thrombus - Patient is currently on Xarelto 20mg Qday. - Right renal mass - highly suspicious for renal cell carcinoma - Patient was evaluated by IR - not possible to perform cryoablation. - Urology recommended outpatient evaluation for right nephrectomy. - Chronic pain syndrome - Continue [place], Acetaminophen, Gabapentin. - History of Gout - continue Allopurinol. Full code. Xarelto. Physician Certification 2 Midnight Certification Type: Admission for Inpatient Services Order for Inpatient Services The services are ordered in accordance with Medicare regulations or non- Medicare payer requirements, as applicable. In the case of services not specified as inpatient-only, they are appropriately provided as inpatient services in accordance with the 2-midnight benchmark. Estimated LOS (days): 2 days is the estimated time the patient will need to remain in the hospital, assuming treatment plan goals are met and no additional complications. Post-Hospital Plan: Home Trish Rose DO Mar 10, 2017 15:53
[2017-03-10] MEDS ORDERED: LACTULOSE SYRUP 20 GM/30 ML CUP PO PRN (16:00)
[2017-03-10] MEDS ORDERED: FUROSEMIDE 40 MG/4 ML VIAL IV PUSH ONE (16:00)
[2017-03-10] MEDS ORDERED: NALOXONE HCL 0.4 MG/ML AMP IV PRN (16:00)
[2017-03-10] MEDS ORDERED: SENNOSIDES 8.6 MG TAB PO PRN (16:00)
[2017-03-10] MEDS ORDERED: BISACODYL 10 MG SUPP RECTAL PRN (16:00)
[2017-03-10] MEDS ORDERED: MAGNESIUM HYDROXIDE SUSP 30 ML CUP PO PRN (16:00)
[2017-03-10] MEDS ORDERED: SODIUM CHLORIDE 0.9% FLUSH 10 ML FLUSH IV FLUSH PRN (16:00)
[2017-03-10 17:15] VITALS: BP 111/80; PULSE 116; RESP 16; TEMP 97.9; O2SAT 100
[2017-03-10 19:12] VITALS: BP 121/81; PULSE 115; RESP 22; TEMP 97.9; O2SAT 98
[2017-03-10 20:35] VITALS: PULSE 113
[2017-03-10] MEDS ORDERED: BACLOFEN 10 MG TAB PO PRN (20:45)
[2017-03-10] MEDS: DOCUSATE SODIUM 50 MG/SENNA 8.6 MG TAB PO SCH (21:49)
[2017-03-10] MEDS: ACETAMINOPHEN/HYDROcodone 325 MG/10 MG TAB PO PRN (21:50)
[2017-03-10] MEDS: SODIUM CHLORIDE 0.9% FLUSH 10 ML FLUSH IV FLUSH SCH (21:50)
[2017-03-11] VITALS (8 sets, daily range): BP systolic 100–139; BP diastolic 61–90; PULSE 102–115; RESP 20–22; TEMP 97.2–97.9; O2SAT 93–98
[2017-03-11] MEDS ORDERED: RESP: ALBUTEROL 2.5 MG/3 ML NEB (SCH) NEB
[2017-03-11] MEDS: SPIRONOLACTONE 25 MG TAB PO SCH (08:43)
[2017-03-11] MEDS: LACTOBACILLUS ACIDOPHILUS TAB PO SCH ×3 (08:43→17:43)
[2017-03-11] MEDS: GABAPENTIN 300 MG CAP PO SCH ×3 (08:43→17:43)
[2017-03-11] MEDS: SODIUM CHLORIDE 0.9% FLUSH 10 ML FLUSH IV FLUSH SCH ×2 (08:44→21:55)
[2017-03-11] MEDS: DOCUSATE SODIUM 50 MG/SENNA 8.6 MG TAB PO SCH ×2 (08:44→21:54)
[2017-03-11] MEDS: LISINOPRIL 10 MG TAB PO SCH (08:44)
[2017-03-11] MEDS: RIVAROXABAN 20 MG TAB PO SCH (08:44)
[2017-03-11] MEDS: ALLOPURINOL 300 MG TAB PO SCH (08:44)
[2017-03-11] MEDS: FUROSEMIDE 40 MG/4 ML VIAL IV PUSH SCH ×2 (08:44→17:45)
[2017-03-11] MEDS: ACETAMINOPHEN/HYDROcodone 325 MG/10 MG TAB PO PRN ×2 (08:45→14:42)
[2017-03-11 10:06] LABS: AUTOMATED NEUTROPHIL # 6.5 TH/MM3 (1.8-7.7); BASOPHIL # 0.1 TH/MM3 (0-0.2); BASOPHIL % 0.9 % (0.0-2.0); EOSINOPHIL # 0.4 TH/MM3 (0-0.4); EOSINOPHIL % 3.5 % (0.0-4.0); HEMATOCRIT 40.6 % (39.0-51.0); HEMO FLAGS DIFF FINAL; LYMPH % 27.2 % (9.0-44.0); LYMPHOCYTE # 2.8 TH/MM3 (1.0-4.8); MEAN CELL VOLUME 78.3 FL (80.0-100.0); MEAN CORPUSCULAR HEMOGLOBIN 24.7 PG (27.0-34.0); MEAN CORPUSCULAR HGB CONC 31.5 % (32.0-36.0); MONO % 6.1 % (0.0-8.0); NEUT % 62.3 % (16.0-70.0); PLATELET COUNT 278 TH/MM3 (150-450); RED BLOOD COUNT 5.18 MIL/MM3 (4.50-5.90); RED CELL DISTRIBUTION WIDTH 18.4 % (11.6-17.2); WHITE BLOOD COUNT 10.4 TH/MM3 (4.0-11.0)
[2017-03-11 10:38] LABS: BICARBONATE 31.4 MEQ/L (21.0-32.0); POTASSIUM 4.9 MEQ/L (3.5-5.1)
--- NOTE | 2017-03-11 14:36 | HHI.PR ---
Subjective Remarks f/u CHF exacerbation Pt tells me that his SOB is still present although somewhat improved however it comes and goes. Ambulating makes it worst. denies any CP, nausea or vomiting. Has been working on decreasing his fluid intake. Asks if he can get home oxygen Objective Vitals Vital Signs Date Time Temp Pulse Resp B/P Pulse Ox O2 Delivery O2 Flow Rate FiO2 03/11/17 12:00 97.2 111 20 130/77 98 03/11/17 11:47 98 21 03/11/17 08:00 97.9 115 20 119/88 98 03/11/17 08:00 102 03/11/17 04:00 97.8 114 22 139/90 98 03/11/17 00:00 97.8 113 20 119/77 97 03/10/17 20:35 113 03/10/17 19:12 97.9 115 22 121/81 98 03/10/17 17:15 97.9 116 16 111/80 100 Nasal Cannula 2 03/10/17 16:54 Nasal Cannula 2.00 03/10/17 15:07 111 24 Room Air 2 03/10/17 15:00 100 Nasal Cannula 2 I/O 03/10/17 03/10/17 03/10/17 03/11/17 03/11/17 03/11/17 07:00 15:00 23:00 07:00 15:00 23:00 Intake Total 230 ml Output Total 675 ml Balance -445 ml Intake Oral 230 ml Output Urine Total 675 ml # Voids 1 # Bowel Movements 0 Result Diagram: 03/11/17 0736 03/11/17 0736 Imaging Last Impressions Chest X-Ray 03/10/17 1237 Signed Impressions: Service Date/Time: Friday, March 10, 2017 12:56 - CONCLUSION: 1. Congestive failure. Similar exam to prior. Josh Cadet MD Objective Remarks GENERAL: This is a well-nourished, well-developed patient, laying in bed HEAD: Atraumatic. Normocephalic. No temporal or scalp tenderness. EYES: EOMI ENT: Nose without drainage. Airway patent. NECK: Trachea midline. No lymphadenopathy. Supple, nontender, no meningeal signs. CARDIOVASCULAR: Regular rate and rhythm without murmurs RESPIRATORY: Moderate air entry. faint crackles at bases. GASTROINTESTINAL: Abdomen soft, non-tender, nondistended. No guarding. MUSCULOSKELETAL: Extremities w 2+ left lower ext edema. and 1+ right lower extremity NEUROLOGICAL: Awake and alert. Cranial nerves II through XII intact. No focal neurological deficits. Normal speech. 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 Tineo is a 51 year old male with a history of LV thrombus, right renal mass, CHF who presents to the ED due to worsening shortness of breath. - Acute exacerbation of congestive heart failure - Systolic heart failure with reduced LV ejection fraction - Non-ischemic cardiomyopathy with EF 20-25%. - Patient is currently on Lasix and Spironolactone at home. No JAEL inhibitor or beta abhay noted. - Will continue Lasix 40mg IV Q12hrs. When asked, pt tells me that he has never seen a manager laundry since being diagnosed w CHF. I will place consult. Will slowly start him on a beta-abhay, carvedilol 6.25mg po BID - Pt was started on Lisinopril 10mg Qday and will titrate up. - Supplemental O2 to keep O2 sat > 90%. - COPD - Continue DuoNeb Q4hrs PRN - History of LV thrombus - Echo in 12/2016 showed LV thrombus. Repeat Echo from 01/29/2017 shows no LV thrombus, I will check u/s left lower extremity as there is extensive swelling compared to the right - Patient is currently on Xarelto 20mg Qday. - Right renal mass - highly suspicious for renal cell carcinoma - Patient was evaluated by IR - not possible to perform cryoablation. - Urology recommended outpatient evaluation for right nephrectomy. - Chronic pain syndrome - Continue Gary, Acetaminophen, Gabapentin. - History of Gout - continue Allopurinol. Full code. Xarelto. Discharge Planning cards consult in place for CHF exacerbation (pt w multiple re-admission for this and doesn't follow w cards as an outpatient). Pt to eval and make d/c recs. walk test prior to d/c Bianca Chance MD 13, 2017 14:36
--- NOTE | 2017-03-11 17:57 | RADRPT ---
EXAM DATE/TIME: 03/11/2017 17:21 [facility] COMPARISON: No previous studies available for comparison. INDICATIONS : Left leg swelling. MEDICAL HISTORY : Chronic obstructive pulmonary disease. Congestive heart failure. Gastroesophageal reflux disease. Hypertension. Asthma. Sleep apnea. Renal failure. Arthritis. Fibromyalgia. Right renal mass. Shingles . Liver disease. C-diff.SURGICAL HISTORY : Left knee surgery. ENCOUNTER: Initial ACUITY: 1 month PAIN SCORE: 0/10 LOCATION: Left leg. TECHNIQUE: Venous ultrasound of the leg was performed from the inguinal ligament to the proximal calf. Real-caterina e, color Doppler and spectral tracing, compression and augmentation techniques were used. FINDINGS: There is normal compressibility of the deep venous system from the inguinal region to the proximal ca lf. No echogenic clot is seen in the lumen of the common femoral, femoral, popliteal, and posterior tibial veins. There is a normal response of the venous system to proximal and distal augmentation an d respiration. CONCLUSION: Normal examination. Letty Dee MD on March 11, 2017 at 17:55 Board Certified Radiologist. This report was verified electronically.
[2017-03-11] MEDS: CARVEDILOL 6.25 MG TAB PO SCH (22:03)
[2017-03-12] VITALS (8 sets, daily range): BP systolic 90–159; BP diastolic 50–85; PULSE 84–107; RESP 20; TEMP 97.2–98; O2SAT 93–99
[2017-03-12] MEDS: ACETAMINOPHEN/HYDROcodone 325 MG/10 MG TAB PO PRN ×4 (00:28→22:17)
[2017-03-12] MEDS: RESP: ALBUTEROL 2.5 MG/IPRATROPIUM 0.5 MG NEB (PRN) NEB ×2 (07:49→22:12)
[2017-03-12] MEDS: SODIUM CHLORIDE 0.9% FLUSH 10 ML FLUSH IV FLUSH SCH ×2 (09:00→22:16)
[2017-03-12] MEDS ORDERED: LISINOPRIL 5 MG TAB PO SCH (09:00)
[2017-03-12] MEDS: LISINOPRIL 10 MG TAB PO SCH (09:18)
[2017-03-12] MEDS: SPIRONOLACTONE 25 MG TAB PO SCH (09:18)
[2017-03-12] MEDS: GABAPENTIN 300 MG CAP PO SCH ×3 (09:18→17:01)
[2017-03-12] MEDS: DOCUSATE SODIUM 50 MG/SENNA 8.6 MG TAB PO SCH ×2 (09:18→21:00)
[2017-03-12] MEDS: RIVAROXABAN 20 MG TAB PO SCH (09:18)
[2017-03-12] MEDS: CARVEDILOL 6.25 MG TAB PO SCH ×2 (09:19→22:16)
[2017-03-12] MEDS: FUROSEMIDE 40 MG/4 ML VIAL IV PUSH SCH ×2 (09:19→17:01)
[2017-03-12] MEDS: ALLOPURINOL 300 MG TAB PO SCH (09:19)
[2017-03-12] MEDS: LACTOBACILLUS ACIDOPHILUS TAB PO SCH ×3 (09:19→17:01)
--- NOTE | 2017-03-12 12:20 | HHI.PR ---
Subjective Remarks Pt seen around 11am today. He tells me that his SOB still comes and goes but is feeling a little better today. denies any Chest pains, palpitations. tolerating a diet. Objective Vitals Vital Signs Date Time Temp Pulse Resp B/P Pulse Ox O2 Delivery O2 Flow Rate FiO2 03/12/17 08:00 97.2 99 20 159/71 93 03/12/17 07:52 95 03/12/17 04:00 97.9 94 20 90/55 95 03/12/17 00:00 98.0 103 20 95/50 95 03/11/17 21:52 106 03/11/17 20:49 21 03/11/17 20:00 97.4 107 20 100/61 93 03/11/17 16:00 97.7 103 20 105/73 93 I/O 03/11/17 03/11/17 03/11/17 03/12/17 03/12/17 03/12/17 06:59 14:59 22:59 06:59 14:59 22:59 Intake Total 720 ml Output Total 600 ml 500 ml 300 ml Balance 120 ml -500 ml -300 ml Intake Oral 720 ml Output Urine Total 600 ml 500 ml 300 ml # Voids 1 # Bowel Movements 0 1 Result Diagram: 03/11/17 0736 03/11/17 0736 Imaging Last Impressions Lower Extremity Ultrasound 03/11/17 0000 Signed Impressions: Service Date/Time: February 17:21 - CONCLUSION: Normal examination. K. Hany Dee MD Chest X-Ray 03/10/17 1237 Signed Impressions: Service Date/Time: Friday, March 10, 2017 12:56 - CONCLUSION: 1. Congestive failure. Similar exam to prior. Josh Cadet MD Objective Remarks GENERAL: This is a well-nourished, well-developed patient, sitting up on recliner HEAD: Atraumatic. Normocephalic. No temporal or scalp tenderness. EYES: EOMI ENT: Nose without drainage. Airway patent. NECK: Trachea midline. No lymphadenopathy. CARDIOVASCULAR: Regular rate and rhythm without murmurs RESPIRATORY: Moderate air entry. clear today. GASTROINTESTINAL: Abdomen soft, non-tender, nondistended. No guarding. MUSCULOSKELETAL: 1+ edema in lower extremities more pronounced on the left. NEUROLOGICAL: Awake and alert. Cranial nerves II through XII intact. No focal neurological deficits. Normal speech. 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 Tineo is a 51 year old male with a history of LV thrombus, right renal mass, CHF who presents to the ED due to worsening shortness of breath. - Acute exacerbation of congestive heart failure - Systolic heart failure with reduced LV ejection fraction - Non-ischemic cardiomyopathy with EF 20-25%. - Patient is currently on Lasix and Spironolactone at home. No JAEL inhibitor or beta abhay noted. - Will continue Lasix 40mg IV Q12hrs. When asked, pt tells me that he has never seen a specialty person since being diagnosed w CHF. I will place consult for further eval and recs. i started him on carvedilol 6.25mg po BID yesterday and I have increased it to 12.5 mg po bid today - on Lisinopril 10mg Qday and will titrate up. - Supplemental O2 to keep O2 sat > 90%. - COPD - Continue DuoNeb Q4hrs PRN - History of LV thrombus - Echo in 12/2016 showed LV thrombus. Repeat Echo from 01/29/2017 shows no LV thrombus,u/s of left lower extremity neg for DVT - Patient is currently on Xarelto 20mg Qday. - Right renal mass - highly suspicious for renal cell carcinoma - Patient was evaluated by IR - not possible to perform cryoablation. - Urology recommended outpatient evaluation for right nephrectomy. - Chronic pain syndrome - Continue [place], Acetaminophen, Gabapentin. - History of Gout - continue Allopurinol. Full code. Xarelto. Discharge Planning cards consult in place for CHF exacerbation (pt w multiple re-admission for this and doesn't follow w cards as an outpatient). PT consult in place. walk test prior to d/c Bianca Chance MD Mar 12, 2017 12:20
[2017-03-12] MEDS ORDERED: DEFIB EXTERNAL (13:21)
--- NOTE | 2017-03-12 13:48 | MB ---
cc: RICK SAMSON DATE OF CONSULTATION: 03/12/2017 REASON FOR CONSULTATION Cardiomyopathy. HISTORY OF PRESENT ILLNESS This is a 51-year-old gentleman without prior history of known heart disease. He presented back in early January with progressive shortness of breath and lower extremity edema. Echocardiogram at that time showed an ejection fraction of 20-25%. He has a history of hypertension in addition to a right kidney mass. He was treated for heart failure and discharged. He now presents on March 10 with progressive symptoms again of shortness of breath and bilateral lower extremity edema. Denies any chest pain symptoms. He has had an about 30 pound weight gain in the past two months. We are consulted for further recommendations. He was not discharged on JAEL inhibitor or diuretic previously. PAST MEDICAL HISTORY 1. Hypertension. 2. COPD. 3. Fibromyalgia. 4. GERD. 5. Congestive heart failure. 6. Renal mass. 7. Left ventricular thrombus found on 12/27/2016. MEDICATIONS Reported medications: 1. Albuterol. 2. Lasix. 3. Acidophilus. 4. Neurontin. 5. Zyloprim. 6. Xarelto. 7. Aldactone. ALLERGIES 1. IBUPROFEN. 2. LEVAQUIN. 3. ULTRAM. FAMILY HISTORY Denies any family history of early coronary artery disease or sudden cardiac . SOCIAL HISTORY Denies alcohol, tobacco or drug use. REVIEW OF SYSTEMS A 12-point review of systems was performed and negative unless otherwise noted in the history of present illness. PHYSICAL EXAMINATION VITAL SIGNS: Temperature 97, pulse 99, blood pressure 159/71 mmHg. GENERAL: Alert and oriented x3, in no acute distress. HEENT: Pupils reactive to light and accommodation. Extraocular movements are intact. NECK: No jugular venous distention. No thyromegaly. No lymphadenopathy. No carotid bruits. LUNGS: Clear to auscultation bilaterally. CARDIOVASCULAR: Regular rate and rhythm without murmurs, rubs or gallops. 2/6 systolic murmur. ABDOMEN: Nontender, nondistended. Good bowel sounds. No hepatosplenomegaly. EXTREMITIES: No clubbing or cyanosis. 1+ edema. NEUROLOGIC: Cranial nerves intact. Motor and sensory grossly intact. LABORATORY WBC 10.4, hemoglobin 12.8, platelet count 278. INR is 1.4, Sodium 137, potassium 4.9, BUN 17, creatinine 0.96. ASSESSMENT 1. Cardiomyopathy. 2. Acute on chronic systolic congestive heart failure. 3. Left ventricular apical thrombus. 4. Mitral regurgitation. 5. Hypertension. PLAN Looking through the notes of the prior hospitalization it looks like he had an echocardiogram in the past with left ventricular apical thrombus initiated on anticoagulation. He was supposedly discharged on a LifeVest. I am not sure what happened but that never happened. He had a cardiac catheterization back in December which showed nonobstructive coronary artery disease so he will not need an ischemic work-up. This is a nonischemic cardiomyopathy. He should be on beta abhay. Will continue with diuretic in addition to JAEL inhibitor. Will make arrangements now for a LifeVest. I would like to repeat his echocardiogram to see if he still has an apical thrombus. He will need a three-month follow-up echocardiogram from the diagnosis of his cardiomyopathy to determine if he is a candidate for an implantable defibrillator. MD NETTE Duran/BRIANNA /1:29 PM /1:39 PM
[2017-03-12] MEDS: ONDANSETRON HCL 4 MG/2 ML VIAL IVP PRN (16:22)
[2017-03-13] VITALS (7 sets, daily range): BP systolic 83–143; BP diastolic 52–70; PULSE 83–97; RESP 20–22; TEMP 97.1–97.6; O2SAT 90–96
[2017-03-13] MEDS: ONDANSETRON HCL 4 MG/2 ML VIAL IVP PRN (00:17)
[2017-03-13] MEDS: RIVAROXABAN 20 MG TAB PO SCH (09:08)
[2017-03-13] MEDS: LACTOBACILLUS ACIDOPHILUS TAB PO SCH ×3 (09:09→18:09)
[2017-03-13] MEDS: CARVEDILOL 6.25 MG TAB PO SCH ×2 (09:09→21:34)
[2017-03-13] MEDS: ALLOPURINOL 300 MG TAB PO SCH (09:09)
[2017-03-13] MEDS: DOCUSATE SODIUM 50 MG/SENNA 8.6 MG TAB PO SCH ×2 (09:09→21:34)
[2017-03-13] MEDS: GABAPENTIN 300 MG CAP PO SCH ×3 (09:09→18:10)
[2017-03-13] MEDS: LISINOPRIL 10 MG TAB PO SCH (09:09)
[2017-03-13] MEDS: SPIRONOLACTONE 25 MG TAB PO SCH (09:09)
[2017-03-13] MEDS: SODIUM CHLORIDE 0.9% FLUSH 10 ML FLUSH IV FLUSH SCH ×2 (09:10→21:00)
[2017-03-13] MEDS: ACETAMINOPHEN/HYDROcodone 325 MG/10 MG TAB PO PRN ×2 (09:10→18:11)
[2017-03-13] MEDS: FUROSEMIDE 40 MG/4 ML VIAL IV PUSH SCH ×2 (09:10→18:12)
--- NOTE | 2017-03-13 11:25 | PD.CARD.PN ---
Subjective Subjective Remarks Still feels sob; no significant changes Objective Medications Administered Medications Medications (Trade) Dose Ordered Sig/Vishal Route PRN Reason Start Time Stop Time Status Last Admin Dose Admin Sodium Chloride (NS Flush) 2 ml BID IV FLUSH 03/10/17 21:00 03/13/17 09:10 Ondansetron HCl (Zofran Inj) 4 mg Q6H PRN IVP NAUSEA OR VOMITING 03/10/17 16:00 03/13/17 00:17 Senna/Docusate Sodium (Porsha-Colace) 1 tab BID PO 03/10/17 21:00 03/13/17 09:09 Lactulose (Lactulose Liq) 30 ml DAILY PRN PO SEVERE CONSITIPATION 03/10/17 16:00 03/10/17 17:20 Acetaminophen/ Hydrocodone Bitart ([place] 10-325 Mg) 1 tab Q6H PRN PO PAIN SCALE 5 TO 10 03/10/17 20:45 03/13/17 09:10 Allopurinol (Zyloprim) 300 mg DAILY PO 03/11/17 09:00 03/13/17 09:09 Baclofen (Lioresal) 10 mg Q8HR PRN PO MUSCLE SPASM 03/10/17 20:45 03/10/17 22:04 Gabapentin (Neurontin) 900 mg TID PO 03/11/17 09:00 03/13/17 09:09 Lactobacillus Acidophilus (Lactinex) 1 tab TID PO 03/11/17 09:00 03/13/17 09:09 Rivaroxaban (Xarelto) 20 mg DAILY PO 03/11/17 09:00 03/13/17 09:08 Spironolactone (Aldactone) 25 mg DAILY PO 03/11/17 09:00 03/13/17 09:09 Lisinopril (Prinivil) 10 mg DAILY PO 03/11/17 09:00 03/13/17 09:09 Furosemide (Lasix Inj) 40 mg BID@,18 IV PUSH 03/11/17 09:00 03/13/17 09:10 Carvedilol (Coreg) 12.5 mg Q12HR PO 03/12/17 21:00 03/13/17 09:09 Vital Signs / I&O Vital Signs Date Time Temp Pulse Resp B/P Pulse Ox O2 Delivery O2 Flow Rate FiO2 03/13/17 08:00 97.6 97 20 106/70 96 03/13/17 04:00 97.1 90 20 99/55 96 03/13/17 00:00 97.4 92 20 97/70 96 03/12/17 20:00 107 03/12/17 20:00 97.8 97 20 122/59 98 03/12/17 17:35 96 21 03/12/17 16:00 97.4 101 20 111/85 96 03/12/17 12:00 97.4 84 20 92/59 99 I/O 03/12/17 03/12/17 03/12/17 03/13/17 03/13/17 03/13/17 07:00 15:00 23:00 07:00 15:00 23:00 Intake Total 480 ml 220 ml 240 ml Output Total 300 ml 175 ml 175 ml Balance -300 ml 480 ml 45 ml 65 ml Intake Oral 480 ml 220 ml 240 ml Output Urine Total 300 ml 175 ml 175 ml # Voids 2 # Bowel Movements 1 0 Physical Exam GENERAL: This is a well-nourished, well-developed patient, in no apparent distress. CARDIOVASCULAR: Regular rate and rhythm without murmurs, gallops, or rubs. RESPIRATORY: Clear to auscultation. Breath sounds equal bilaterally. No wheezes , rales, or rhonchi. GASTROINTESTINAL: Abdomen soft, non-tender, nondistended. Normal active bowel sounds MUSCULOSKELETAL: 1+ edema bilat NEURO: Alert & Oriented x4 to person, place, time, situation. Moves all ext x4 Imaging Last Impressions Lower Extremity Ultrasound 03/11/17 0000 Signed Impressions: Service Date/Time: February 17:21 - CONCLUSION: Normal examination. Letty Dee MD Chest X-Ray 03/10/17 1237 Signed Impressions: Service Date/Time: Friday, March 10, 2017 12:56 - CONCLUSION: 1. Congestive failure. Similar exam to prior. Josh Cadet MD Assessment and Plan Problem List: (1) CHF (congestive heart failure) Assessment and Plan: continue Lasix for now (2) Cardiomyopathy Assessment and Plan: on bb/thalia; life-vest was consulted. Problem Qualifiers (1) CHF (congestive heart failure): Qualified Code: I50.9 - Acute on chronic congestive heart failure, unspecified congestive heart failure type Juan Daniel Ordonez MD Mar 13, 2017 11:25
--- NOTE | 2017-03-13 11:32 | HHI.PR ---
Subjective Remarks Follow up CHF. Patient states that he is still having shortness of breath. Denies chest pain. States that he feels "about the same" as when he came into the hospital. Objective Vitals Vital Signs Date Time Temp Pulse Resp B/P Pulse Ox O2 Delivery O2 Flow Rate FiO2 03/13/17 08:00 97.6 97 20 106/70 96 03/13/17 04:00 97.1 90 20 99/55 96 03/13/17 00:00 97.4 92 20 97/70 96 03/12/17 20:00 107 03/12/17 20:00 97.8 97 20 122/59 98 03/12/17 17:35 96 21 03/12/17 16:00 97.4 101 20 111/85 96 03/12/17 12:00 97.4 84 20 92/59 99 I/O 03/12/17 03/12/17 03/12/17 03/13/17 03/13/17 03/13/17 07:00 15:00 23:00 07:00 15:00 23:00 Intake Total 480 ml 220 ml 240 ml Output Total 300 ml 175 ml 175 ml Balance -300 ml 480 ml 45 ml 65 ml Intake Oral 480 ml 220 ml 240 ml Output Urine Total 300 ml 175 ml 175 ml # Voids 2 # Bowel Movements 1 0 Result Diagram: 03/11/17 0736 03/11/17 0736 Imaging Last Impressions Lower Extremity Ultrasound 03/11/17 0000 Signed Impressions: Service Date/Time: February 17:21 - CONCLUSION: Normal examination. K. Hany Dee MD Chest X-Ray 03/10/17 1237 Signed Impressions: Service Date/Time: Friday, March 10, 2017 12:56 - CONCLUSION: 1. Congestive failure. Similar exam to prior. Josh Cadet MD Objective Remarks General: No acute distress. Heart: Regular rate and rhythm. No murmur. Lungs: Crackles noted bilaterally. Breathing is nonlabored. Abdomen: Soft, nontender, nondistended. Extremities: 2+ bilateral ankle edema. Psych: Alert and oriented. 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 Acute exacerbation of chronic systolic congestive heart failure: Secondary to nonischemic cardiomyopathy. Last echocardiogram showed ejection fraction 20- 25%. Continue diuresis. Appreciate cardiology recommendations. Discussed with Dr. Ordonez. Will likely need Life Vest. 2. COPD: Continue duo nebs as needed. 3. History of left ventricular thrombus: This was seen on echocardiogram in December 2016. Repeat echo in January 2017 did not show thrombus. Continue Xarelto. 4. Right renal mass: Suspicious for renal cell carcinoma. This was previously evaluated by interventional radiology, and reportedly not amenable to cryoablation. Outpatient follow-up with Urology. 5. DVT prophylaxis: Xarelto. Toni Collado MD Mar 13, 2017 11:31
--- NOTE | 2017-03-13 13:55 | EKG ---
Date Performed: 03/12/2017 Time Performed: 15:34:47 PTAGE: 51 years EKG: Sinus rhythm LEFT ATRIAL ENLARGEMENT MARKED LEFT AXIS DEVIATION INCOMPLETE RIGHT BUNDLE BRANCH BLOCK ST DEVIATION AND MODERATE T-WAVE ABNORMALITY, CONSIDER LATERAL ISCHEMIA ABNORMAL ECG PREVIOUS TRACING : 02/26/2017 03.32 Since prior tracing, sinus rhythm is slower. Lateral T-wave changes are more prominent, consider ischemia. DOCTOR: Juan Daniel Ordonez Interpretating Date/Time 03/13/2017 13:54:40
[2017-03-13] MEDS: RESP: ALBUTEROL 2.5 MG/IPRATROPIUM 0.5 MG NEB (PRN) NEB (16:35)
[2017-03-14] VITALS (10 sets, daily range): BP systolic 93–124; BP diastolic 52–72; PULSE 70–94; RESP 18–22; TEMP 97.2–97.9; O2SAT 89–97
[2017-03-14] MEDS: ACETAMINOPHEN/HYDROcodone 325 MG/10 MG TAB PO PRN ×3 (03:09→16:24)
--- NOTE | 2017-03-14 09:38 | HHI.PR ---
Subjective Remarks Follow up CHF. Patient still having lower extremity edema, left leg > right. Denies chest pain. Occasional dyspnea. Objective Vitals Vital Signs Date Time Temp Pulse Resp B/P Pulse Ox O2 Delivery O2 Flow Rate FiO2 03/14/17 08:04 97.2 70 18 124/58 95 03/14/17 05:00 Room Air 03/14/17 05:00 97.6 88 22 106/72 97 03/14/17 00:00 97.7 82 20 108/62 96 03/14/17 00:00 Room Air 03/13/17 21:08 21 03/13/17 20:00 97.3 88 22 83/52 96 102/62 03/13/17 20:00 Room Air 03/13/17 20:00 87 03/13/17 16:00 97.4 83 20 90/63 90 03/13/17 12:00 97.4 85 20 143/65 96 I/O 03/13/17 03/13/17 03/13/17 03/14/17 03/14/17 03/14/17 07:00 15:00 23:00 07:00 15:00 23:00 Intake Total 240 ml 482 ml 100 ml Output Total 175 ml 400 ml Balance 65 ml 82 ml 100 ml Intake Oral 240 ml 480 ml 100 ml IV Total 2 ml Output Urine Total 175 ml 400 ml # Voids 2 1 # Bowel Movements 0 1 0 0 Result Diagram: 03/11/17 0736 03/11/17 0736 Imaging Last Impressions Lower Extremity Ultrasound 03/11/17 0000 Signed Impressions: Service Date/Time: February 17:21 - CONCLUSION: Normal examination. Letty Dee MD Chest X-Ray 03/10/17 1237 Signed Impressions: Service Date/Time: Friday, March 10, 2017 12:56 - CONCLUSION: 1. Congestive failure. Similar exam to prior. Josh Cadet MD Objective Remarks General: No acute distress. Heart: Regular rate and rhythm. No murmur. Lungs: Crackles noted bilaterally. Breathing is nonlabored. Abdomen: Soft, nontender, nondistended. Extremities: 2+ left ankle edema, 1+ right lower extremity edema. Psych: Alert and oriented. 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 Acute exacerbation of chronic systolic congestive heart failure: Secondary to nonischemic cardiomyopathy. Last echocardiogram showed ejection fraction 20- 25%. Continue diuresis, fluid restriction. Appreciate cardiology recommendations. Will likely need Life Vest. Still with lower extremity swelling , left greater than right. Lower extremity ultrasound negative for DVT. 2. COPD: Continue duo nebs as needed. 3. History of left ventricular thrombus: This was seen on echocardiogram in December 2016. Repeat echo in January 2017 did not show thrombus. Continue Xarelto. 4. Right renal mass: Suspicious for renal cell carcinoma. This was previously evaluated by interventional radiology, and reportedly not amenable to cryoablation. Outpatient follow-up with Urology. 5. DVT prophylaxis: Xarelto. Toni Collado MD Mar 14, 2017 09:38
[2017-03-14] MEDS: LISINOPRIL 10 MG TAB PO SCH (10:10)
[2017-03-14] MEDS: CARVEDILOL 6.25 MG TAB PO SCH ×2 (10:11→20:33)
[2017-03-14] MEDS: SPIRONOLACTONE 25 MG TAB PO SCH (10:12)
[2017-03-14] MEDS: LACTOBACILLUS ACIDOPHILUS TAB PO SCH ×3 (10:12→17:55)
[2017-03-14] MEDS: ALLOPURINOL 300 MG TAB PO SCH (10:13)
[2017-03-14] MEDS: DOCUSATE SODIUM 50 MG/SENNA 8.6 MG TAB PO SCH ×2 (10:13→20:33)
[2017-03-14] MEDS: RIVAROXABAN 20 MG TAB PO SCH (10:13)
[2017-03-14] MEDS: GABAPENTIN 300 MG CAP PO SCH ×3 (10:14→17:56)
[2017-03-14] MEDS: FUROSEMIDE 40 MG/4 ML VIAL IV PUSH SCH ×2 (10:15→17:57)
[2017-03-14] MEDS: SODIUM CHLORIDE 0.9% FLUSH 10 ML FLUSH IV FLUSH SCH ×2 (10:15→20:33)
[2017-03-14 10:27] LABS: BICARBONATE 32.2 MEQ/L (21.0-32.0); POTASSIUM 5.2 MEQ/L (3.5-5.1)
[2017-03-14] MEDS ORDERED: METOLAZONE 5 MG TAB PO ONE (16:15)
--- NOTE | 2017-03-14 16:30 | PD.CARD.PN ---
Subjective Subjective Remarks Pt asleep comfortably in bed, but when I wake him he says he has sob (not on O2) Objective Medications Administered Medications Medications (Trade) Dose Ordered Sig/Vishal Route PRN Reason Start Time Stop Time Status Last Admin Dose Admin Sodium Chloride (NS Flush) 2 ml BID IV FLUSH 03/10/17 21:00 03/14/17 10:15 Ondansetron HCl (Zofran Inj) 4 mg Q6H PRN IVP NAUSEA OR VOMITING 03/10/17 16:00 03/13/17 00:17 Senna/Docusate Sodium (Porsha-Colace) 1 tab BID PO 03/10/17 21:00 03/14/17 10:13 Lactulose (Lactulose Liq) 30 ml DAILY PRN PO SEVERE CONSITIPATION 03/10/17 16:00 03/10/17 17:20 Acetaminophen/ Hydrocodone Bitart ([place] 10-325 Mg) 1 tab Q6H PRN PO PAIN SCALE 5 TO 10 03/10/17 20:45 03/14/17 10:12 Allopurinol (Zyloprim) 300 mg DAILY PO 03/11/17 09:00 03/14/17 10:13 Baclofen (Lioresal) 10 mg Q8HR PRN PO MUSCLE SPASM 03/10/17 20:45 03/10/17 22:04 Gabapentin (Neurontin) 900 mg TID PO 03/11/17 09:00 03/14/17 12:43 Lactobacillus Acidophilus (Lactinex) 1 tab TID PO 03/11/17 09:00 03/14/17 12:43 Rivaroxaban (Xarelto) 20 mg DAILY PO 03/11/17 09:00 03/14/17 10:13 Spironolactone (Aldactone) 25 mg DAILY PO 03/11/17 09:00 03/14/17 10:12 Lisinopril (Prinivil) 10 mg DAILY PO 03/11/17 09:00 03/14/17 10:10 Furosemide (Lasix Inj) 40 mg BID@,18 IV PUSH 03/11/17 09:00 03/14/17 10:15 Carvedilol (Coreg) 12.5 mg Q12HR PO 03/12/17 21:00 03/14/17 10:11 Vital Signs / I&O Vital Signs Date Time Temp Pulse Resp B/P Pulse Ox O2 Delivery O2 Flow Rate FiO2 03/14/17 12:04 97.8 84 18 93/59 90 03/14/17 10:02 97 21 03/14/17 08:04 97.2 70 18 124/58 95 03/14/17 05:00 Room Air 03/14/17 05:00 97.6 88 22 106/72 97 03/14/17 00:00 97.7 82 20 108/62 96 03/14/17 00:00 Room Air 03/13/17 21:08 21 03/13/17 20:00 97.3 88 22 83/52 96 102/62 03/13/17 20:00 Room Air 03/13/17 20:00 87 I/O 03/13/17 03/13/17 03/13/17 03/14/17 03/14/17 03/14/17 07:00 15:00 23:00 07:00 15:00 23:00 Intake Total 240 ml 482 ml 100 ml Output Total 175 ml 400 ml Balance 65 ml 82 ml 100 ml Intake Oral 240 ml 480 ml 100 ml IV Total 2 ml Output Urine Total 175 ml 400 ml # Voids 2 1 # Bowel Movements 0 1 0 0 Physical Exam GENERAL: This is a well-nourished, well-developed patient, in no apparent distress. CARDIOVASCULAR: Regular rate and rhythm without murmurs, gallops, or rubs. RESPIRATORY: Clear to auscultation. Breath sounds equal bilaterally. No wheezes , rales, or rhonchi. GASTROINTESTINAL: Abdomen soft, non-tender, nondistended. Normal active bowel sounds MUSCULOSKELETAL: 1+ edema bilat NEURO: Alert & Oriented x4 to person, place, time, situation. Moves all ext x4 Laboratory Laboratory Tests Test 03/14/17 08:20 Sodium Level 129 MEQ/L Potassium Level 5.2 MEQ/L Chloride Level 92 MEQ/L Carbon Dioxide Level 32.2 MEQ/L Anion Gap 5 MEQ/L Blood Urea Nitrogen 48 MG/DL Creatinine 1.45 MG/DL Estimat Glomerular Filtration 51 ML/MIN Rate Random Glucose 97 MG/DL Calcium Level 8.5 MG/DL Imaging Last Impressions Lower Extremity Ultrasound 03/11/17 0000 Signed Impressions: Service Date/Time: February 17:21 - CONCLUSION: Normal examination. K. Hany Shamlou, MD Chest X-Ray 03/10/17 0374 Signed Impressions: Service Date/Time: Friday, March 10, 2017 12:56 - CONCLUSION: 1. Congestive failure. Similar exam to prior. Josh Cadet MD Assessment and Plan Problem List: (1) CHF (congestive heart failure) Assessment and Plan: continue Lasix for now (2) Cardiomyopathy Assessment and Plan: on bb/thalia; life-vest was consulted. will add one dose metolazone Assessment and Plan Dr. Myles will return tomorrow to resume care. Problem Qualifiers (1) CHF (congestive heart failure): Qualified Code: I50.9 - Acute on chronic congestive heart failure, unspecified congestive heart failure type Juan Daniel Ordonez MD Mar 14, 2017 16:30
[2017-03-14] MEDS: RESP: ALBUTEROL 2.5 MG/IPRATROPIUM 0.5 MG NEB (PRN) NEB (16:42)
[2017-03-15] VITALS (8 sets, daily range): BP systolic 80–97; BP diastolic 50–62; PULSE 72–148; RESP 16–22; TEMP 96–98.4; O2SAT 90–98
[2017-03-15] MEDS: ACETAMINOPHEN/HYDROcodone 325 MG/10 MG TAB PO PRN ×2 (00:04→10:38)
[2017-03-15] MEDS: RESP: ALBUTEROL 2.5 MG/IPRATROPIUM 0.5 MG NEB (PRN) NEB ×2 (01:00→17:31)
--- NOTE | 2017-03-15 08:25 | PD.CARD.PN ---
Subjective Subjective Remarks breathing some better Objective Vital Signs / I&O Vital Signs Date Time Temp Pulse Resp B/P Pulse Ox O2 Delivery O2 Flow Rate FiO2 03/15/17 04:00 97.6 84 18 90/55 97 03/15/17 04:00 Room Air 03/15/17 01:03 95 21 03/15/17 00:00 Room Air 03/15/17 00:00 97.8 83 18 94/60 90 03/14/17 20:16 92 03/14/17 20:00 104/52 03/14/17 20:00 Room Air 03/14/17 16:46 97 21 03/14/17 16:04 97.9 80 18 114/60 89 03/14/17 16:00 Room Air 03/14/17 12:04 97.8 84 18 93/59 90 03/14/17 12:00 Room Air 03/14/17 10:02 97 21 03/14/17 08:30 94 I/O 03/14/17 03/14/17 03/14/17 03/15/17 03/15/17 03/15/17 06:59 14:59 22:59 06:59 14:59 22:59 Intake Total 480 ml 410 ml 150 ml Output Total 100 ml 550 ml 600 ml Balance 380 ml -140 ml -450 ml Intake Oral 480 ml 410 ml 150 ml Output Urine Total 100 ml 550 ml 600 ml # Voids 1 # Bowel Movements 0 0 2 0 Physical Exam GENERAL: Well-nourished, well-developed patient in no apparent distress. NECK: No JVD. No carotid bruit. CARDIOVASCULAR: Regular rate and rhythm. S1/S2 no murmur, rub, or gallop. RESPIRATORY: No accessory muscle use. rales to auscultation. Breath sounds equal bilaterally. GASTROINTESTINAL: Abdomen soft, non-tender, nondistended. MUSCULOSKELETAL: Extremities without clubbing, cyanosis, or edema. Assessment and Plan Problem List: (1) CHF (congestive heart failure) (2) Cardiomyopathy Assessment and Plan With changes in electrolytes and renal function we will hold furosemide, continue Aldactone and repeat BMP Problem Qualifiers (1) CHF (congestive heart failure): Qualified Code: I50.9 - Acute on chronic congestive heart failure, unspecified congestive heart failure type Yaya Esposito Mar 15, 2017 08:25
[2017-03-15] MEDS: LACTOBACILLUS ACIDOPHILUS TAB PO SCH ×3 (09:00→17:12)
[2017-03-15] MEDS: SODIUM CHLORIDE 0.9% FLUSH 10 ML FLUSH IV FLUSH SCH ×2 (09:00→22:44)
[2017-03-15] MEDS: GABAPENTIN 300 MG CAP PO SCH ×3 (10:10→17:12)
[2017-03-15] MEDS: ALLOPURINOL 300 MG TAB PO SCH (10:11)
[2017-03-15] MEDS: RIVAROXABAN 20 MG TAB PO SCH (10:11)
[2017-03-15] MEDS: CARVEDILOL 6.25 MG TAB PO SCH ×2 (10:11→22:46)
[2017-03-15] MEDS: LISINOPRIL 10 MG TAB PO SCH (10:11)
[2017-03-15] MEDS: DOCUSATE SODIUM 50 MG/SENNA 8.6 MG TAB PO SCH ×2 (10:12→22:43)
[2017-03-15] MEDS: SPIRONOLACTONE 25 MG TAB PO SCH (10:12)
--- NOTE | 2017-03-15 10:42 | HHI.PR ---
Subjective Remarks Follow up CHF. Patient still reporting swelling, dyspnea. Complaining about fluid restriction preventing him from having ice chips. No chest pain. Objective Vitals Vital Signs Date Time Temp Pulse Resp B/P Pulse Ox O2 Delivery O2 Flow Rate FiO2 03/15/17 08:00 96.0 82 22 92/62 90 03/15/17 04:00 97.6 84 18 90/55 97 03/15/17 04:00 Room Air 03/15/17 01:03 95 21 03/15/17 00:00 Room Air 03/15/17 00:00 97.8 83 18 94/60 90 03/14/17 20:16 92 03/14/17 20:00 104/52 03/14/17 20:00 Room Air 03/14/17 16:46 97 21 03/14/17 16:04 97.9 80 18 114/60 89 03/14/17 16:00 Room Air 03/14/17 12:04 97.8 84 18 93/59 90 03/14/17 12:00 Room Air I/O 03/14/17 03/14/17 03/14/17 03/15/17 03/15/17 03/15/17 06:59 14:59 22:59 06:59 14:59 22:59 Intake Total 480 ml 410 ml 150 ml Output Total 100 ml 550 ml 600 ml Balance 380 ml -140 ml -450 ml Intake Oral 480 ml 410 ml 150 ml Output Urine Total 100 ml 550 ml 600 ml # Voids 1 # Bowel Movements 0 0 2 0 Result Diagram: 03/11/17 0736 03/14/17 0820 Imaging Last Impressions Lower Extremity Ultrasound 03/11/17 0000 Signed Impressions: Service Date/Time: February 17:21 - CONCLUSION: Normal examination. Letty Dee MD Chest X-Ray 03/10/17 1237 Signed Impressions: Service Date/Time: Friday, March 10, 2017 12:56 - CONCLUSION: 1. Congestive failure. Similar exam to prior. Josh Cadet MD Objective Remarks General: No acute distress. Heart: Regular rate and rhythm. No murmur. Lungs: Crackles noted bilaterally. Breathing is nonlabored. Abdomen: Soft, nontender, nondistended. Extremities: 2+ left ankle edema, 1+ right lower extremity edema. Psych: Alert and oriented. 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 Acute exacerbation of chronic systolic congestive heart failure: Secondary to nonischemic cardiomyopathy. Last echocardiogram showed ejection fraction 20- 25%. Continue diuresis, fluid restriction. Appreciate cardiology recommendations. Will need Life Vest. Still with lower extremity swelling, left greater than right. Lower extremity ultrasound negative for DVT. 2. COPD: Continue duo nebs as needed. 3. History of left ventricular thrombus: This was seen on echocardiogram in December 2016. Repeat echo in January 2017 did not show thrombus. Continue Xarelto. 4. Right renal mass: Suspicious for renal cell carcinoma. This was previously evaluated by interventional radiology, and reportedly not amenable to cryoablation. Outpatient follow-up with Urology. 5. DVT prophylaxis: Xarelto. 6. Hyperkalemia: Repeat labs ordered. 7. Hyponatremia: Diuretics adjusted by cardiology. Recheck labs. Toni Collado MD Mar 15, 2017 10:42
--- NOTE | 2017-03-15 11:22 | ECHRPT ---
Indication: CONCLUSIONS Dilated cardiomyopathy with severely reduced with an estimated ejection fraction in the range of 20- 25%. No apical thrombus observed with contrast enhancement. BP: / HR: Rhythm: Technical Quality: FINDINGS LEFT VENTRICLE Mildly dilated left ventricle. The left ventricular systolic function is severely reduced with an estimated ejection fraction in th e range of 20-25%. There is global left ventricular dysfunction. Definity contrast was administered for better visualization of endocardial border and apex. Slow ap ical flow was noted, but no thrombus identified. Yusuf Myles MD, FACC (Electronically Signed) Final Date:15 March 2017 11:22
[2017-03-15 12:29] LABS: BICARBONATE 27.7 MEQ/L (21.0-32.0); POTASSIUM 4.6 MEQ/L (3.5-5.1)
[2017-03-15] MEDS: ACETAMINOPHEN 325 MG TAB PO PRN ×2 (17:54→22:43)
[2017-03-16] VITALS (8 sets, daily range): BP systolic 88–112; BP diastolic 45–69; PULSE 63–95; RESP 18–20; TEMP 97.4–98.3; O2SAT 93–99
[2017-03-16] MEDS: ONDANSETRON HCL 4 MG/2 ML VIAL IVP PRN (00:58)
[2017-03-16 06:54] LABS: AUTOMATED NEUTROPHIL # 8.1 TH/MM3 (1.8-7.7); BASOPHIL # 0.1 TH/MM3 (0-0.2); BASOPHIL % 0.6 % (0.0-2.0); EOSINOPHIL # 0.2 TH/MM3 (0-0.4); EOSINOPHIL % 1.9 % (0.0-4.0); HEMATOCRIT 38.3 % (39.0-51.0); HEMO FLAGS DIFF FINAL; LYMPH % 18.1 % (9.0-44.0); LYMPHOCYTE # 2.1 TH/MM3 (1.0-4.8); MEAN CELL VOLUME 79.4 FL (80.0-100.0); MEAN CORPUSCULAR HEMOGLOBIN 24.7 PG (27.0-34.0); MEAN CORPUSCULAR HGB CONC 31.1 % (32.0-36.0); MONO % 11.2 % (0.0-8.0); NEUT % 68.2 % (16.0-70.0); PLATELET COUNT 222 TH/MM3 (150-450); RED BLOOD COUNT 4.83 MIL/MM3 (4.50-5.90); RED CELL DISTRIBUTION WIDTH 18.5 % (11.6-17.2); WHITE BLOOD COUNT 11.8 TH/MM3 (4.0-11.0)
[2017-03-16 07:02] LABS: INTERNATIONAL NORMALIZED RATIO 1.4 RATIO; PROTHROMBIN TIME - PATIENT 15.4 SEC (9.8-11.6)
[2017-03-16 07:20] LABS: ALKALINE PHOSPHATASE 103 U/L (45-117); ALT (GPT) 99 U/L (12-78); ANION GAP 8 MEQ/L (5-15); AST (GOT) 29 U/L (15-37); BICARBONATE 29.5 MEQ/L (21.0-32.0); BLOOD UREA NITROGEN 63 MG/DL (7-18); CHLORIDE 90 MEQ/L (98-107); GLOMERULAR FILTRATION RATE 39 ML/MIN (>89); MAGNESIUM 2.6 MG/DL (1.5-2.5); POTASSIUM 5.4 MEQ/L (3.5-5.1); SODIUM (NA) 127 MEQ/L (136-145); TOTAL BILIRUBIN ADULT 0.6 MG/DL (0.2-1.0)
--- NOTE | 2017-03-16 07:39 | PD.CARD.PN ---
Subjective Subjective Remarks no CV complaints (Yaya Esposito) Objective Vital Signs / I&O Vital Signs Date Time Temp Pulse Resp B/P Pulse Ox O2 Delivery O2 Flow Rate FiO2 03/16/17 06:22 97.8 63 18 95/69 93 03/16/17 00:00 97.8 74 18 88/45 97 90/50 03/16/17 00:00 Nasal Cannula 2.00 03/15/17 20:00 98.1 148 18 03/15/17 20:00 97/61 03/15/17 20:00 Nasal Cannula 2.00 03/15/17 16:00 97.0 72 16 86/58 95 03/15/17 15:30 98 Nasal Cannula 2.00 03/15/17 12:00 98.4 73 20 80/50 93 03/15/17 08:00 96.0 82 22 92/62 90 03/15/17 08:00 91 Nasal Cannula 2.00 I/O 03/15/17 03/15/17 03/15/17 03/16/17 03/16/17 03/16/17 06:59 14:59 22:59 06:59 14:59 22:59 Intake Total 150 ml 720 ml 100 ml Output Total 600 ml 800 ml Balance -450 ml -80 ml 100 ml Intake Oral 150 ml 720 ml 100 ml Output Urine Total 600 ml 800 ml # Voids 2 # Bowel Movements 0 0 Physical Exam GENERAL: Well-nourished, well-developed patient in no apparent distress. NECK: No JVD. No carotid bruit. CARDIOVASCULAR: Regular rate and rhythm. S1/S2 no murmur, rub, or gallop. RESPIRATORY: No accessory muscle use. rales to auscultation. Breath sounds equal bilaterally. GASTROINTESTINAL: Abdomen soft, non-tender, nondistended. MUSCULOSKELETAL: Extremities without clubbing, cyanosis, or edema. Laboratory Laboratory Tests Test 03/15/17 03/16/17 11:13 05:16 Sodium Level 129 MEQ/L 127 MEQ/L Potassium Level 4.6 MEQ/L 5.4 MEQ/L Chloride Level 92 MEQ/L 90 MEQ/L Carbon Dioxide Level 27.7 MEQ/L 29.5 MEQ/L Anion Gap 9 MEQ/L 8 MEQ/L Blood Urea Nitrogen 55 MG/DL 63 MG/DL Creatinine 1.45 MG/DL 1.84 MG/DL Estimat Glomerular Filtration 51 ML/MIN 39 ML/MIN Rate Random Glucose 225 MG/DL 106 MG/DL Calcium Level 8.2 MG/DL 8.1 MG/DL White Blood Count 11.8 TH/MM3 Red Blood Count 4.83 MIL/MM3 Hemoglobin 11.9 GM/DL Hematocrit 38.3 % Mean Corpuscular Volume 79.4 FL Mean Corpuscular Hemoglobin 24.7 PG Mean Corpuscular Hemoglobin 31.1 % Concent Red Cell Distribution Width 18.5 % Platelet Count 222 TH/MM3 Mean Platelet Volume 9.3 FL Neutrophils (%) (Auto) 68.2 % Lymphocytes (%) (Auto) 18.1 % Monocytes (%) (Auto) 11.2 % Eosinophils (%) (Auto) 1.9 % Basophils (%) (Auto) 0.6 % Neutrophils # (Auto) 8.1 TH/MM3 Lymphocytes # (Auto) 2.1 TH/MM3 Monocytes # (Auto) 1.3 TH/MM3 Eosinophils # (Auto) 0.2 TH/MM3 Basophils # (Auto) 0.1 TH/MM3 CBC Comment DIFF FINAL Differential Comment Prothrombin Time 15.4 SEC Prothromb Time International 1.4 RATIO Ratio Magnesium Level 2.6 MG/DL Total Bilirubin 0.6 MG/DL Aspartate Amino Transf 29 U/L (AST/SGOT) Alanine Aminotransferase 99 U/L (ALT/SGPT) Alkaline Phosphatase 103 U/L Total Protein 7.1 GM/DL Albumin 3.1 GM/DL (Yaya Esposito) Assessment and Plan Problem List: (1) CHF (congestive heart failure) (2) Cardiomyopathy Assessment and Plan With worsening changes in electrolytes and renal function we will hold all diuretics, recommend consult nephrology (Yaya Esposito) Assessment and Plan breathing improved Na and Cr abnormal intravascularly deplete hold diuretics gentle hydration BRANDON hose (Yusuf Myles MD) Problem Qualifiers (1) CHF (congestive heart failure): Qualified Code: I50.9 - Acute on chronic congestive heart failure, unspecified congestive heart failure type Yaya Esposito Mar 16, 2017 07:39 Yusuf Myles MD Mar 16, 2017 12:28
[2017-03-16] MEDS: GABAPENTIN 300 MG CAP PO SCH ×3 (08:36→17:17)
[2017-03-16] MEDS: ALLOPURINOL 300 MG TAB PO SCH (08:36)
[2017-03-16] MEDS: SPIRONOLACTONE 25 MG TAB PO SCH (08:36)
[2017-03-16] MEDS: RIVAROXABAN 20 MG TAB PO SCH (08:37)
[2017-03-16] MEDS: DOCUSATE SODIUM 50 MG/SENNA 8.6 MG TAB PO SCH ×2 (08:37→20:10)
[2017-03-16] MEDS: LACTOBACILLUS ACIDOPHILUS TAB PO SCH ×3 (08:37→17:17)
[2017-03-16] MEDS: CARVEDILOL 6.25 MG TAB PO SCH ×2 (08:37→20:10)
[2017-03-16] MEDS: SODIUM CHLORIDE 0.9% FLUSH 10 ML FLUSH IV FLUSH SCH ×2 (08:38→20:11)
[2017-03-16] MEDS ORDERED: LISINOPRIL 5 MG TAB PO SCH (09:00)
[2017-03-16] MEDS: ACETAMINOPHEN/HYDROcodone 325 MG/10 MG TAB PO PRN ×2 (10:25→17:17)
--- NOTE | 2017-03-16 10:40 | PD.CONS ---
HPI Service Nephrology Consult Requested By [facility] Reason for Consult TRAM, hyponatremia Primary Care Physician No Primary Care Physician History of Present Illness This is a 51 y/o male patient. He was admitted on 03/10 for shortness of breath and lower extremity edema that have been ongoing since December. He has also noticed a significant weight gain, nearly 30 pounds in that time. PMH of HTN, COPD, CHF with EF of 20-25%, hx of LV thrombus on Xarelto, and new right renal mass that he is having evaluated and treated outpatient. On arrival his creatinine was 0.96, that has increased as is 1.84 today. He reports his urine output has slowed compared to normal. His K is 5.4, Na 127. He was started on JAEL and lasix , his blood pressure has been low most of this admission, 80/40 at times. His BNP is 2296. We were consulted for renal management. He has a life vest in place , has had runs of V tach per the nurse. He is a full code. (Natasha Oropeza) Review of Systems Constitutional: COMPLAINS OF: Fatigue, Weight gain Respiratory: COMPLAINS OF: Shortness of breath Cardiovascular: COMPLAINS OF: Lower Extremity Edema, DENIES: Chest pain Gastrointestinal: DENIES: Abdominal pain Neurologic: DENIES: Abnormal gait (Natasha Oropeza) Past Family Social History Allergies: Coded Allergies: Ibuprofen (Verified Allergy, Severe, Nausea/Vomiting, 03/10/17) Levaquin (Verified Allergy, Mild, EDEMA, 03/10/17) Ultram (Verified Allergy, Mild, ITCHING, 03/10/17) Past Medical History HTN CHF (Echo 12/28/16 w/ EF 20%) COPD Fibromyalgia GERD, LV thrombus on Xarelto Renal mass currently under care of oncologist and urologist Past Surgical History knee replacement Reported Medications Albuterol Neb (Albuterol Sulfate) 2.5 Mg/3 Ml Neb 2.5 Mg NEB Q4HR NEB While awake Lasix (Furosemide) 40 Mg Tab 40 Mg PO BID Acidophilus/l-Sporogenes (Lactobacillus Acidophilus) 1 Tab Tab 1 Tab PO TID Neurontin (Gabapentin) 300 Mg Cap 900 Mg PO TID Zyloprim (Allopurinol) 300 Mg Tab 300 Mg PO DAILY Xarelto (Rivaroxaban) 20 Mg Tab 20 Mg PO DAILY Aldactone (Spironolactone) 25 Mg Tab 25 Mg PO DAILY Baclofen 10 Mg Tab 10 Mg PO Q8HR PRN Active Ordered Medications Current Medications Medications (Trade) Dose Ordered Sig/Vishal Route Start Time Stop Time Status Last Admin (NS Flush) 2 ml UNSCH PRN IV FLUSH 03/10/17 16:00 (NS Flush) 2 ml BID IV FLUSH 03/10/17 21:00 03/16/17 08:38 (Tylenol) 650 mg Q4H PRN PO 03/10/17 16:00 03/15/17 22:43 (Zofran Inj) 4 mg Q6H PRN IVP 03/10/17 16:00 03/16/17 00:58 (Narcan Inj) 0.4 mg UNSCH PRN IV 03/10/17 16:00 (Porsha-Colace) 1 tab BID PO 03/10/17 21:00 03/16/17 08:37 (Milk Of Magnesia Liq) 30 ml Q12H PRN PO 03/10/17 16:00 (Senokot) 17.2 mg Q12H PRN PO 03/10/17 16:00 (Dulcolax Supp) 10 mg DAILY PRN RECTAL 03/10/17 16:00 (Lactulose Liq) 30 ml DAILY PRN PO 03/10/17 16:00 03/10/17 17:20 ([place] 10-325 Mg) 1 tab Q6H PRN PO 03/10/17 20:45 03/15/17 10:38 (Zyloprim) 300 mg DAILY PO 03/11/17 09:00 03/16/17 08:36 (Lioresal) 10 mg Q8HR PRN PO 03/10/17 20:45 03/10/17 22:04 (Neurontin) 900 mg TID PO 03/11/17 09:00 03/16/17 08:36 (Lactinex) 1 tab TID PO 03/11/17 09:00 03/16/17 08:37 (Xarelto) 20 mg DAILY PO 03/11/17 09:00 03/16/17 08:37 (Aldactone) 25 mg DAILY PO 03/11/17 09:00 03/16/17 08:36 (Lasix Inj) 40 mg BID@ IV PUSH 03/11/17 09:00 Hold 03/14/17 17:57 (Coreg) 12.5 mg Q12HR PO 03/12/17 21:00 03/15/17 22:46 (Prinivil) 5 mg DAILY PO 03/16/17 09:00 Hold Family History No hx of renal cancer, renal failure, CKD Social History former smoker no ETOH use per pt lives with friends he is , no family local unemployed full code (Natasha Oropeza) Physical Exam Vital Signs Vital Signs Date Time Temp Pulse Resp B/P Pulse Ox O2 Delivery O2 Flow Rate FiO2 03/16/17 08:00 97.4 80 20 95/53 93 03/16/17 08:00 94 Nasal Cannula 2.00 03/16/17 06:22 97.8 63 18 95/69 93 03/16/17 00:00 97.8 74 18 88/45 97 90/50 03/16/17 00:00 Nasal Cannula 2.00 03/15/17 20:00 98.1 148 18 03/15/17 20:00 97/61 03/15/17 20:00 Nasal Cannula 2.00 03/15/17 16:00 97.0 72 16 86/58 95 03/15/17 15:30 98 Nasal Cannula 2.00 03/15/17 12:00 98.4 73 20 80/50 93 Physical Exam Middle aged male, awake and alert not in distress S1/S2, regular rate, he has life vest on currently lungs with bibasilar rales abdomen soft, + ascites extremities: dependent pitting edema, left more than right, distal pulses strong skin: intact Laboratory Laboratory Tests Test 03/15/17 03/16/17 11:13 05:16 Sodium Level 129 127 Potassium Level 4.6 5.4 Chloride Level 92 90 Carbon Dioxide Level 27.7 29.5 Anion Gap 9 8 Blood Urea Nitrogen 55 63 Creatinine 1.45 1.84 Estimat Glomerular Filtration 51 39 Rate Random Glucose 225 106 Calcium Level 8.2 8.1 White Blood Count 11.8 Red Blood Count 4.83 Hemoglobin 11.9 Hematocrit 38.3 Mean Corpuscular Volume 79.4 Mean Corpuscular Hemoglobin 24.7 Mean Corpuscular Hemoglobin 31.1 Concent Red Cell Distribution Width 18.5 Platelet Count 222 Mean Platelet Volume 9.3 Neutrophils (%) (Auto) 68.2 Lymphocytes (%) (Auto) 18.1 Monocytes (%) (Auto) 11.2 Eosinophils (%) (Auto) 1.9 Basophils (%) (Auto) 0.6 Neutrophils # (Auto) 8.1 Lymphocytes # (Auto) 2.1 Monocytes # (Auto) 1.3 Eosinophils # (Auto) 0.2 Basophils # (Auto) 0.1 CBC Comment DIFF FINAL Differential Comment Prothrombin Time 15.4 Prothromb Time International 1.4 Ratio Magnesium Level 2.6 Total Bilirubin 0.6 Aspartate Amino Transf 29 (AST/SGOT) Alanine Aminotransferase 99 (ALT/SGPT) Alkaline Phosphatase 103 Total Protein 7.1 Albumin 3.1 (Natasha Oropeza) Result Diagram: 03/16/17 0516 03/16/17 0516 Imaging Last Impressions Lower Extremity Ultrasound 03/11/17 0000 Signed Impressions: Service Date/Time: February 17:21 - CONCLUSION: Normal examination. K. Hany Dee MD Chest X-Ray 03/10/17 1237 Signed Impressions: Service Date/Time: Friday, March 10, 2017 12:56 - CONCLUSION: 1. Congestive failure. Similar exam to prior. Josh Cadet MD (Natasha Oropeza) Assessment and Plan Problem List: (1) TRAM (acute kidney injury) Plan: in a patient with normal creatinine on arrival TRAM likely from decreased renal perfusion secondary to hypotension and CHF exacerbation, may have progressed to ATN he was also started on JAEL and diuretics over the past couple of days K 5.4, lisinopril has been held as of today avoid IVF, avoid nephrotoxic substances at this time hold antihypertensives to maintain MAP > 65mmHg monitor renal function daily monitor urine output Xarelto should be held at this time due to TRAM (2) CHF (congestive heart failure) Plan: he has life vest in place EF 20-25% currently monitor fluid status he is taking spironolactone and coreg Lisinopril has been held Lasix changed to Bumex 2 mg BID cardiology is following fluid restriction in place (3) Hyperkalemia Plan: due to reduction in GFR, addition of spironolactone and ACEI monitor metabolic panel low K diet (4) Hyponatremia Plan: hypervolemic, due to CHF needs fluid restriction continue loop diuretics monitor sodium level (5) Right kidney mass Plan: he has been evaluated by oncology, due to urological evaluation per the patient, this is most likely renal cell carcinoma, he reports the plan is for a nephrectomy (Natasha Oropeza) Problem List: (1) TRAM (acute kidney injury) Plan: in a patient with normal creatinine on arrival TRAM likely from decreased renal perfusion secondary to hypotension and CHF exacerbation, may have progressed to ATN he was also started on JAEL and diuretics over the past couple of days K 5.4, lisinopril has been held as of today avoid IVF, avoid nephrotoxic substances at this time hold antihypertensives to maintain MAP > 65mmHg monitor renal function daily monitor urine output Xarelto should be held at this time due to TRAM (2) CHF (congestive heart failure) Plan: he has life vest in place EF 20-25% currently monitor fluid status he is taking spironolactone and coreg Lisinopril has been held Lasix changed to Bumex 2 mg BID cardiology is following fluid restriction in place (3) Hyperkalemia Plan: due to reduction in GFR, addition of spironolactone and ACEI monitor metabolic panel low K diet (4) Hyponatremia Plan: hypervolemic, due to CHF needs fluid restriction continue loop diuretics monitor sodium level (5) Right kidney mass Plan: he has been evaluated by oncology, due to urological evaluation per the patient, this is most likely renal cell carcinoma, he reports the plan is for a nephrectomy Assessment and Plan patient was seen and examined. Multiple complex issues as noted above. Acute worsening of renal function likely due to CHF, cardiorenal syndrome. Has been hypotensive. Has developed hyperkalemia. I will temporarily suspend Spironolactone. Obtain UA. Prognosis is guarded. Also has right renal mass, possible cancer. (Eben Kim MD) Problem Qualifiers (1) CHF (congestive heart failure): Qualified Code: I50.9 - Acute on chronic congestive heart failure, unspecified congestive heart failure type Natasha Oropeza Mar 16, 2017 10:40 Eben Kim MD Mar 16, 2017 10:57
[2017-03-16] MEDS ORDERED: BUMETANIDE INJ 1 MG/4 ML VIAL IV PUSH SCH ×2 (10:45→18:00)
--- NOTE | 2017-03-16 11:28 | HHI.PR ---
Subjective Remarks Follow up CHF, acute renal failure and electrolyte abnormalities. The patient denies chest pain or dyspnea at this time. He is intermittently tearful and expresses that he is worried about the seriousness of his heart condition. Objective Vitals Vital Signs Date Time Temp Pulse Resp B/P Pulse Ox O2 Delivery O2 Flow Rate FiO2 03/16/17 11:06 94 Nasal Cannula 2.00 03/16/17 08:00 97.4 80 20 95/53 93 03/16/17 08:00 94 Nasal Cannula 2.00 03/16/17 06:22 97.8 63 18 95/69 93 03/16/17 00:00 97.8 74 18 88/45 97 90/50 03/16/17 00:00 Nasal Cannula 2.00 03/15/17 20:00 98.1 148 18 03/15/17 20:00 97/61 03/15/17 20:00 Nasal Cannula 2.00 03/15/17 16:00 97.0 72 16 86/58 95 03/15/17 15:30 98 Nasal Cannula 2.00 03/15/17 12:00 98.4 73 20 80/50 93 I/O 03/15/17 03/15/17 03/15/17 03/16/17 03/16/17 03/16/17 06:59 14:59 22:59 06:59 14:59 22:59 Intake Total 150 ml 720 ml 100 ml Output Total 600 ml 800 ml Balance -450 ml -80 ml 100 ml Intake Oral 150 ml 720 ml 100 ml Output Urine Total 600 ml 800 ml # Voids 2 # Bowel Movements 0 0 Result Diagram: 03/16/17 0516 03/16/17 0516 Imaging Last Impressions Lower Extremity Ultrasound 03/11/17 0000 Signed Impressions: Service Date/Time: February 17:21 - CONCLUSION: Normal examination. K. Hany Dee MD Chest X-Ray 03/10/17 1237 Signed Impressions: Service Date/Time: Friday, March 10, 2017 12:56 - CONCLUSION: 1. Congestive failure. Similar exam to prior. Josh Cadet MD Objective Remarks General: No acute distress. Sitting up in a chair. LifeVest. Heart: Regular rate and rhythm. No murmur. Lungs: Crackles noted bilaterally. Breathing is nonlabored. Abdomen: Soft, nontender, nondistended. Extremities: 2+ left ankle edema, 1+ right lower extremity edema. Psych: Alert and oriented. 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 Acute exacerbation of chronic systolic congestive heart failure: Secondary to nonischemic cardiomyopathy. Last echocardiogram showed ejection fraction 20- 25%. Continue diuresis, fluid restriction. Appreciate cardiology recommendations. LifeVest in place. Still with lower extremity swelling, left greater than right. Lower extremity ultrasound negative for DVT. 2. COPD: Continue duo nebs as needed. 3. History of left ventricular thrombus: This was seen on echocardiogram in December 2016. Repeat echo in January 2017 did not show thrombus. Continue Xarelto. 4. Right renal mass: Suspicious for renal cell carcinoma. This was previously evaluated by interventional radiology, and reportedly not amenable to cryoablation. Consult Urology. 5. DVT prophylaxis: Xarelto. 6. Hyperkalemia: Repeat labs ordered. 7. Hyponatremia: Diuretics adjusted. Appreciate nephrology recommendations. 8. Acute kidney injury: Secondary to hypotension, diuresis. Appreciate nephrology recommendations. Toni Collado MD Mar 16, 2017 11:28
[2017-03-16] MEDS ORDERED: SODIUM CHLOR 0.9% 1000 ML INJ 1,000 ML IV SCH (12:30)
--- NOTE | 2017-03-16 14:34 | PD.CONS ---
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 He was admitted back in December and an MRI at that time demonstrated a 5.4 cm centrally located right renal mass. He presents on this admission with a CHF exacerbation. He notes shortness of breath with any exertion. His ejection fraction is approximately 25% on a recent echo. He also was noted to have a history of hypertension, LV thrombus and was found to be in acute renal failure. Creatinine is up to 1.8 today. He also notes lower extremity swelling. Patient has been on Xarelto due to his LV thrombus. He also admits to a long history of smoking and quit approximately 2 years ago. Review of Systems Constitutional: DENIES: Diaphoretic episodes Eyes: DENIES: Blurred vision Ears, nose, mouth, throat: DENIES: Tinnitus Respiratory: COMPLAINS OF: Shortness of breath, DENIES: Apneas Cardiovascular: COMPLAINS OF: Dyspnea on Exertion, DENIES: Chest pain Gastrointestinal: DENIES: Abdominal pain Musculoskeletal: DENIES: Joint pain Past Family Social History Past Medical History CHF, LV thrombus, hypertension, right renal mass Past Surgical History Left knee surgery Allergies: Coded Allergies: Ibuprofen (Verified Allergy, Severe, Nausea/Vomiting, 03/10/17) Levaquin (Verified Allergy, Mild, EDEMA, 03/10/17) Ultram (Verified Allergy, Mild, ITCHING, 03/10/17) Family History Denies any history of malignancies Social History Long history of smoking and quit one year ago Prior history of drinking as noted Physical Exam Vital Signs Date Time Temp Pulse Resp B/P Pulse Ox O2 Delivery O2 Flow Rate FiO2 03/16/17 12:00 98.3 95 20 112/57 97 03/16/17 11:06 94 Nasal Cannula 2.00 03/16/17 08:00 97.4 80 20 95/53 93 03/16/17 08:00 94 Nasal Cannula 2.00 03/16/17 06:22 97.8 63 18 95/69 93 03/16/17 00:00 97.8 74 18 88/45 97 90/50 03/16/17 00:00 Nasal Cannula 2.00 03/15/17 20:00 98.1 148 18 03/15/17 20:00 97/61 03/15/17 20:00 Nasal Cannula 2.00 03/15/17 16:00 97.0 72 16 86/58 95 03/15/17 15:30 98 Nasal Cannula 2.00 Physical Exam GENERAL: This is a well-nourished, well-developed patient, in no apparent distress. SKIN: No rashes, ecchymoses or lesions. Cool and dry. HEAD: Atraumatic. Normocephalic. No temporal or scalp tenderness. EYES: Pupils equal round and reactive. Extraocular motions intact. No scleral icterus. No injection or drainage. ENT: Nose without bleeding, purulent drainage or septal hematoma. Throat without erythema, tonsillar hypertrophy or exudate. Uvula midline. Airway patent. NECK: Trachea midline. No JVD or lymphadenopathy. Supple, nontender, no meningeal signs. CARDIOVASCULAR: Regular rate and rhythm without murmurs, gallops, or rubs. RESPIRATORY: Clear to auscultation. Diminished breath sounds bilaterally GASTROINTESTINAL: Abdomen soft, non-tender, nondistended. No hepato-splenomegaly , or palpable masses. No guarding. GENITOURINARY: Normal phallus with testes descended MUSCULOSKELETAL: Extremities with 3+ edema. No joint tenderness, effusion, or edema noted. No calf tenderness. Negative Homans sign bilaterally. NEUROLOGICAL: Awake and alert. Cranial nerves II through XII intact. Motor and sensory grossly within normal limits. Five out of 5 muscle strength in all muscle groups. Normal speech. Laboratory Tests Test 03/16/17 05:16 White Blood Count 11.8 Red Blood Count 4.83 Hemoglobin 11.9 Hematocrit 38.3 Mean Corpuscular Volume 79.4 Mean Corpuscular Hemoglobin 24.7 Mean Corpuscular Hemoglobin 31.1 Concent Red Cell Distribution Width 18.5 Platelet Count 222 Mean Platelet Volume 9.3 Neutrophils (%) (Auto) 68.2 Lymphocytes (%) (Auto) 18.1 Monocytes (%) (Auto) 11.2 Eosinophils (%) (Auto) 1.9 Basophils (%) (Auto) 0.6 Neutrophils # (Auto) 8.1 Lymphocytes # (Auto) 2.1 Monocytes # (Auto) 1.3 Eosinophils # (Auto) 0.2 Basophils # (Auto) 0.1 CBC Comment DIFF FINAL Differential Comment Prothrombin Time 15.4 Prothromb Time International 1.4 Ratio Sodium Level 127 Potassium Level 5.4 Chloride Level 90 Carbon Dioxide Level 29.5 Anion Gap 8 Blood Urea Nitrogen 63 Creatinine 1.84 Estimat Glomerular Filtration 39 Rate Random Glucose 106 Calcium Level 8.1 Magnesium Level 2.6 Total Bilirubin 0.6 Aspartate Amino Transf 29 (AST/SGOT) Alanine Aminotransferase 99 (ALT/SGPT) Alkaline Phosphatase 103 Total Protein 7.1 Albumin 3.1 Result Diagram: 03/16/17 0516 03/16/17 0516 Imaging Last Impressions Lower Extremity Ultrasound 03/11/17 0000 Signed Impressions: Service Date/Time: February 17:21 - CONCLUSION: Normal examination. K. Hany Dee MD Chest X-Ray 03/10/17 1237 Signed Impressions: Service Date/Time: Friday, March 10, 2017 12:56 - CONCLUSION: 1. Congestive failure. Similar exam to prior. Josh Cadet MD Assessment and Plan Assessment and Plan 48 year-old male with 5 x 4 cm right centrally located renal mass. Patient will require right radical nephrectomy in future. I would not recommend surgical intervention at this time given his acute exacerbation and onset of acute renal failure. He will need to be cleared from the cardiology standpoint and will need to be off his Xarelto prior to his surgery. Thank you for the consult and for allowing me to participate in the care of this patient. Nolan Sage DO Mar 16, 2017 14:34
[2017-03-17] VITALS (7 sets, daily range): BP systolic 89–136; BP diastolic 58–78; PULSE 74–95; RESP 16–22; TEMP 97.2–98.2; O2SAT 92–100
[2017-03-17] MEDS: ACETAMINOPHEN/HYDROcodone 325 MG/10 MG TAB PO PRN ×2 (03:57→17:15)
[2017-03-17 07:08] LABS: AUTOMATED NEUTROPHIL # 6.2 TH/MM3 (1.8-7.7); BASOPHIL # 0.1 TH/MM3 (0-0.2); EOSINOPHIL # 0.2 TH/MM3 (0-0.4); EOSINOPHIL % 2.3 % (0.0-4.0); HEMATOCRIT 37.1 % (39.0-51.0); HEMO FLAGS DIFF FINAL; LYMPH % 23.8 % (9.0-44.0); LYMPHOCYTE # 2.5 TH/MM3 (1.0-4.8); MEAN CELL VOLUME 79.1 FL (80.0-100.0); MEAN CORPUSCULAR HEMOGLOBIN 25.2 PG (27.0-34.0); MEAN CORPUSCULAR HGB CONC 31.8 % (32.0-36.0); MONO % 14.4 % (0.0-8.0); NEUT % 58.5 % (16.0-70.0); PLATELET COUNT 193 TH/MM3 (150-450); RED BLOOD COUNT 4.69 MIL/MM3 (4.50-5.90); RED CELL DISTRIBUTION WIDTH 18.4 % (11.6-17.2); WHITE BLOOD COUNT 10.5 TH/MM3 (4.0-11.0)
[2017-03-17 07:15] LABS: BICARBONATE 26.9 MEQ/L (21.0-32.0); POTASSIUM 5.2 MEQ/L (3.5-5.1)
--- NOTE | 2017-03-17 08:12 | PD.CARD.PN ---
Subjective Subjective Remarks breathing okay, getting breathing treatments Objective Vital Signs / I&O Vital Signs Date Time Temp Pulse Resp B/P Pulse Ox O2 Delivery O2 Flow Rate FiO2 03/17/17 04:58 98.2 86 22 89/58 97 108/72 Manual Cuff/Auscultation 03/17/17 02:39 Room Air 03/17/17 00:00 97.3 74 20 94/58 96 03/16/17 20:15 91 03/16/17 19:45 97.5 83 18 101/61 99 03/16/17 16:00 Room Air 03/16/17 16:00 98.1 91 20 112/63 97 03/16/17 13:46 2.00 03/16/17 12:00 Room Air 03/16/17 12:00 98.3 95 20 112/57 97 03/16/17 11:06 94 Nasal Cannula 2.00 I/O 03/16/17 03/16/17 03/16/17 03/17/17 03/17/17 03/17/17 07:00 15:00 23:00 07:00 15:00 23:00 Intake Total 969 ml Output Total 1000 ml 100 ml Balance -31 ml -100 ml Intake Oral 720 ml IV Total 249 ml Output Urine Total 1000 ml 100 ml # Voids 1 # Bowel Movements 0 0 Physical Exam GENERAL: Well-nourished, well-developed patient in no apparent distress. NECK: No JVD. No carotid bruit. CARDIOVASCULAR: Regular rate and rhythm. S1/S2 no murmur, rub, or gallop. RESPIRATORY: No accessory muscle use. rales to auscultation. Breath sounds equal bilaterally. GASTROINTESTINAL: Abdomen soft, non-tender, nondistended. MUSCULOSKELETAL: Extremities without clubbing, cyanosis, or edema. Laboratory Laboratory Tests Test 03/17/17 05:30 White Blood Count 10.5 TH/MM3 Red Blood Count 4.69 MIL/MM3 Hemoglobin 11.8 GM/DL Hematocrit 37.1 % Mean Corpuscular Volume 79.1 FL Mean Corpuscular Hemoglobin 25.2 PG Mean Corpuscular Hemoglobin 31.8 % Concent Red Cell Distribution Width 18.4 % Platelet Count 193 TH/MM3 Mean Platelet Volume 9.5 FL Neutrophils (%) (Auto) 58.5 % Lymphocytes (%) (Auto) 23.8 % Monocytes (%) (Auto) 14.4 % Eosinophils (%) (Auto) 2.3 % Basophils (%) (Auto) 1.0 % Neutrophils # (Auto) 6.2 TH/MM3 Lymphocytes # (Auto) 2.5 TH/MM3 Monocytes # (Auto) 1.5 TH/MM3 Eosinophils # (Auto) 0.2 TH/MM3 Basophils # (Auto) 0.1 TH/MM3 CBC Comment DIFF FINAL Differential Comment Sodium Level 128 MEQ/L Potassium Level 5.2 MEQ/L Chloride Level 93 MEQ/L Carbon Dioxide Level 26.9 MEQ/L Anion Gap 8 MEQ/L Blood Urea Nitrogen 58 MG/DL Creatinine 1.25 MG/DL Estimat Glomerular Filtration 60 ML/MIN Rate Random Glucose 83 MG/DL Calcium Level 8.3 MG/DL Phosphorus Level 3.7 MG/DL Albumin 3.0 GM/DL Assessment and Plan Problem List: (1) CHF (congestive heart failure) (2) Cardiomyopathy Assessment and Plan Renal function normalized after discontinuing diuretics and giving gentle hydration. Still has rales on exam, get chest x-ray hypotension - decrease BB and hold diuretics today hyponatremia - slight improvement Problem Qualifiers (1) CHF (congestive heart failure): Qualified Code: I50.9 - Acute on chronic congestive heart failure, unspecified congestive heart failure type Yaya Esposito Mar 17, 2017 08:12
[2017-03-17] MEDS: CARVEDILOL 3.125 MG TAB PO SCH ×2 (09:00→20:25)
[2017-03-17] MEDS: SODIUM CHLORIDE 0.9% FLUSH 10 ML FLUSH IV FLUSH SCH ×2 (09:00→20:26)
[2017-03-17] MEDS: RIVAROXABAN 20 MG TAB PO SCH (09:00)
[2017-03-17] MEDS: LACTOBACILLUS ACIDOPHILUS TAB PO SCH ×3 (09:00→17:15)
[2017-03-17] MEDS: GABAPENTIN 300 MG CAP PO SCH ×3 (09:00→17:15)
[2017-03-17] MEDS: ALLOPURINOL 100 MG TAB PO SCH (09:00)
[2017-03-17] MEDS: DOCUSATE SODIUM 50 MG/SENNA 8.6 MG TAB PO SCH ×2 (09:00→20:25)
[2017-03-17] MEDS: FUROSEMIDE 40 MG/4 ML VIAL IV PUSH SCH (10:30)
--- NOTE | 2017-03-17 10:33 | HHI.PR ---
Subjective Remarks Follow up CHF. Still having lower extremity swelling. Denies chest pain, dyspnea. Objective Vitals Vital Signs Date Time Temp Pulse Resp B/P Pulse Ox O2 Delivery O2 Flow Rate FiO2 03/17/17 04:58 98.2 86 22 89/58 97 108/72 Manual Cuff/Auscultation 03/17/17 02:39 Room Air 03/17/17 00:00 97.3 74 20 94/58 96 03/16/17 20:15 91 03/16/17 19:45 97.5 83 18 101/61 99 03/16/17 16:00 Room Air 03/16/17 16:00 98.1 91 20 112/63 97 03/16/17 13:46 2.00 03/16/17 12:00 Room Air 03/16/17 12:00 98.3 95 20 112/57 97 03/16/17 11:06 94 Nasal Cannula 2.00 I/O 03/16/17 03/16/17 03/16/17 03/17/17 03/17/17 03/17/17 06:59 14:59 22:59 06:59 14:59 22:59 Intake Total 969 ml Output Total 1000 ml 100 ml Balance -31 ml -100 ml Intake Oral 720 ml IV Total 249 ml Output Urine Total 1000 ml 100 ml # Voids 1 # Bowel Movements 0 0 Result Diagram: 03/17/17 0530 03/17/17 0530 Imaging Last Impressions Lower Extremity Ultrasound 03/11/17 0000 Signed Impressions: Service Date/Time: February 17:21 - CONCLUSION: Normal examination. K. Hany Dee MD Chest X-Ray 03/10/17 1237 Signed Impressions: Service Date/Time: Friday, March 10, 2017 12:56 - CONCLUSION: 1. Congestive failure. Similar exam to prior. Josh Cadet MD Objective Remarks General: No acute distress. Sitting up in a chair. LifeVest. Heart: Regular rate and rhythm. No murmur. Lungs: Crackles noted bilaterally. Breathing is nonlabored. Abdomen: Soft, nontender, nondistended. Extremities: 2+ bilateral lower extremity edema. Psych: Alert and oriented. 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 Acute exacerbation of chronic systolic congestive heart failure: Secondary to nonischemic cardiomyopathy. Last echocardiogram showed ejection fraction 20- 25%. Continue diuresis, fluid restriction. Appreciate cardiology recommendations. LifeVest in place. Still with lower extremity swelling. Lower extremity ultrasound negative for DVT. 2. COPD: Continue duo nebs as needed. 3. History of left ventricular thrombus: This was seen on echocardiogram in December 2016. Repeat echo in January 2017 did not show thrombus. Continue Xarelto. 4. Right renal mass: Suspicious for renal cell carcinoma. This was previously evaluated by interventional radiology, and reportedly not amenable to cryoablation. Appreciate Urology recommendations. 5. DVT prophylaxis: Xarelto. 6. Hyperkalemia: Slightly better today. 7. Hyponatremia: Diuretics adjusted. Appreciate nephrology recommendations. 8. Acute kidney injury: Secondary to hypotension, diuresis. Appreciate nephrology recommendations. Improving. Toni Collado MD Mar 17, 2017 10:33
--- NOTE | 2017-03-17 11:41 | HHI.NPPN ---
Subjective Renal Failure: Acute Interval History Renal function is better. He still has fluid overload. (Natasha Oropeza ) Review of Systems General Constitutional: Fatigue, Weight Change (Natasha Oropeza) Respiratory Lungs: SOB (Natasha Oropeza) Cardiovascular Cardiac: Edema, DECKER (Natasha Oropeza) Objective Data Data 03/16/17 03/17/17 18:59 06:59 Intake Total 969 ml Output Total 1000 ml 100 ml Balance -31 ml -100 ml Intake Oral 720 ml IV Total 249 ml Output Urine Total 1000 ml 100 ml # Voids 1 # Bowel Movements 0 0 Vital Signs Date Time Temp Pulse Resp B/P Pulse Ox O2 Delivery O2 Flow Rate FiO2 03/17/17 08:00 97.2 84 20 110/78 94 03/17/17 04:58 98.2 86 22 89/58 97 108/72 Manual Cuff/Auscultation 03/17/17 02:39 Room Air 03/17/17 00:00 97.3 74 20 94/58 96 03/16/17 20:15 91 03/16/17 19:45 97.5 83 18 101/61 99 03/16/17 16:00 Room Air 03/16/17 16:00 98.1 91 20 112/63 97 03/16/17 13:46 2.00 03/16/17 12:00 Room Air 03/16/17 12:00 98.3 95 20 112/57 97 (Natasha Oropeza) -: 03/17/17 0530 03/17/17 0530 Imaging Last Impressions Lower Extremity Ultrasound 03/11/17 0000 Signed Impressions: Service Date/Time: February 17:21 - CONCLUSION: Normal examination. K. Hany Dee MD Chest X-Ray 03/10/17 1237 Signed Impressions: Service Date/Time: Friday, March 10, 2017 12:56 - CONCLUSION: 1. Congestive failure. Similar exam to prior. Josh Cadet MD (Natasha Oropeza) Physical Exam General Appearance: Well Developed, No Acute Distress, Comfortable (Natasha Oropeza) Eyes Eye Exam: Pupils Equal, Pupils Reactive (Natasha Oropeza) Throat Throat Exam: Oral Mucosa [place] & Moist (Natasha Oropeza) Pulmonary Resp Exam: Breath Sounds Equal, Crackles (Natasha Oropeza) Cardiology CV Exam: Regular, Normal Sinus Rhythm CV Remarks life vest in place (Natasha Oropeza) Gastrointestinal/Abdomen GI Exam: Soft, Non-Tender, Bowel Sounds Present (Natasha Oropeza) Genitourinary Exam: Clear Urine (Natasha Oropeza) Musculoskeletal MS Exam: Joints Intact, Normal Gait, Normal Tone, Good Strength (Natasha Oropeza) Integumentary Skin Exam: Clear, Warm, Dry (Natasha rOopeza) Extremeties Extremities Exam: Pedal Pulses Palpable, Moderate Edema, Pitting Edema ( Natasha Oropeza) Neurologic Neuro Exam: Alert, Awake, Oriented, Speech Clear, Moving All Extremities ( Natasha Oropeza) Psychiatric Psych Exam: Appropriate Responses (Natasha Oropeza) Assessment/Plan Discussed Condition With: Patient Assessment Summary: CHF, Hypotension Problem List: (1) TRAM (acute kidney injury) Plan: in a patient with normal creatinine on arrival TRAM likely from decreased renal perfusion secondary to hypotension and CHF exacerbation renal function is better, he is non oliguric resume Lasix 40 mg daily IF avoid IVF, avoid nephrotoxic substances, JAEL is held borderline hyperkalemic, spironolactone has beens topped at this time hold antihypertensives to maintain MAP > 65mmHg monitor renal function daily monitor urine output consider stopped Xarelto at this time due to TRAM (2) CHF (congestive heart failure) Plan: he has life vest in place, EF 20-25% monitor fluid status Lisinopril has been held Lasix resumed at 40 mg daily, IV cardiology is following fluid restriction in place, 1.5 L, monitor fluid status (3) Hyperkalemia Plan: due to reduction in GFR, JAEL and spironolactone have been stopped monitor metabolic panel low K diet (4) Hyponatremia Plan: improved slightly hypervolemic, due to CHF on fluid restriction continue loop diuretics monitor sodium level (5) Right kidney mass Plan: urology has evaluated, eventually will require nephrectomy (Natasha Oropeza) Plan patient was seen and examined. Some improvement in renal function. He likely has cardiorenal syndrome. Resume Lasix. Prognosis is poor, especially in the light of presence of renal tumor for which he may require nephrectomy. (Eben iKm MD) Problem Qualifiers (1) CHF (congestive heart failure): Qualified Code: I50.9 - Acute on chronic congestive heart failure, unspecified congestive heart failure type Natasha Oropeza Mar 17, 2017 11:41 Eben Kim MD Mar 17, 2017 19:53
[2017-03-17 14:32] LABS: BLOOD, URINE NEG (NEG); COMMENT (UR) CULT NOT INDICATED; CULTURE IF INDICATED CULT NOT INDICATED; GLUCOSE,URINE NEG (NEG); KETONE, URINE NEG (NEG); NITRITE,URINE NEG (NEG); URINE COLOR YELLOW (YELLW/STRAW)
[2017-03-18] VITALS (8 sets, daily range): BP systolic 112–135; BP diastolic 60–75; PULSE 84–101; RESP 16–20; TEMP 97.3–98.2; O2SAT 93–100
[2017-03-18 07:08] LABS: BICARBONATE 30.3 MEQ/L (21.0-32.0)
--- NOTE | 2017-03-18 08:01 | PD.CARD.PN ---
Subjective Subjective Remarks denies any CV complaints Objective Vital Signs / I&O Vital Signs Date Time Temp Pulse Resp B/P Pulse Ox O2 Delivery O2 Flow Rate FiO2 03/18/17 04:00 97.3 89 18 114/75 98 03/18/17 00:00 97.4 94 16 119/69 95 03/17/17 20:00 95 03/17/17 20:00 98.0 94 16 116/66 100 03/17/17 17:41 Nasal Cannula 2.00 03/17/17 16:00 97.8 86 20 136/68 92 03/17/17 12:00 97.6 82 20 98/70 95 03/17/17 09:00 81 03/17/17 08:00 97.2 84 20 110/78 94 I/O 03/17/17 03/17/17 03/17/17 03/18/17 03/18/17 03/18/17 06:59 14:59 22:59 06:59 14:59 22:59 Intake Total 120 ml 100 ml 100 ml Output Total 100 ml 900 ml 2050 ml 800 ml Balance -100 ml -780 ml -1950 ml -700 ml Intake Oral 120 ml 100 ml 100 ml Output Urine Total 100 ml 900 ml 2050 ml 800 ml # Bowel Movements 0 1 0 1 Physical Exam GENERAL: Well-nourished, well-developed patient in no apparent distress. NECK: No JVD. No carotid bruit. CARDIOVASCULAR: Regular rate and rhythm. S1/S2 no murmur, rub, or gallop. RESPIRATORY: No accessory muscle use. clear to auscultation. Breath sounds equal bilaterally. GASTROINTESTINAL: Abdomen soft, non-tender, nondistended. MUSCULOSKELETAL: Extremities without clubbing, cyanosis, or edema. Laboratory Laboratory Tests Test 03/17/17 03/18/17 14:00 05:43 Urine Color YELLOW Urine Turbidity CLEAR Urine pH 6.0 Urine Specific [place] 1.011 Urine Protein NEG mg/dL Urine Glucose (UA) NEG mg/dL Urine Ketones NEG mg/dL Urine Occult Blood NEG Urine Nitrite NEG Urine Bilirubin NEG Urine Urobilinogen LESS THAN 2.0 MG/DL Urine Leukocyte Esterase NEG Urine RBC LESS THAN 1 /hpf Urine WBC 1 /hpf Microscopic Urinalysis Comment CULT NOT INDICATED Sodium Level 130 MEQ/L Potassium Level 5.0 MEQ/L Chloride Level 93 MEQ/L Carbon Dioxide Level 30.3 MEQ/L Anion Gap 7 MEQ/L Blood Urea Nitrogen 39 MG/DL Creatinine 1.01 MG/DL Estimat Glomerular Filtration 77 ML/MIN Rate Random Glucose 88 MG/DL Calcium Level 8.6 MG/DL Phosphorus Level 3.1 MG/DL Assessment and Plan Problem List: (1) CHF (congestive heart failure) (2) Cardiomyopathy Assessment and Plan Renal function continues to improve with resolution of hypotension Diuretics restarted, 3 L off last 24 hours hyponatremia - getting IV K Continues current medical regimen Sodium continues to improve Problem Qualifiers (1) CHF (congestive heart failure): Qualified Code: I50.9 - Acute on chronic congestive heart failure, unspecified congestive heart failure type Yaya Esposito Mar 18, 2017 08:01
--- NOTE | 2017-03-18 08:11 | HHI.NPPN ---
Subjective Renal Failure: Acute Interval History very good urine output. BP has improved. Renal function has improved. Review of Systems General Constitutional: Fatigue, Weight Change Respiratory Lungs: SOB Cardiovascular Cardiac: Edema, DECKER Objective Data Data 03/17/17 03/18/17 19:00 07:00 Intake Total 120 ml 200 ml Output Total 900 ml 2850 ml Balance -780 ml -2650 ml Intake Oral 120 ml 200 ml Output Urine Total 900 ml 2850 ml # Bowel Movements 1 1 Vital Signs Date Time Temp Pulse Resp B/P Pulse Ox O2 Delivery O2 Flow Rate FiO2 03/18/17 04:00 97.3 89 18 114/75 98 03/18/17 00:00 97.4 94 16 119/69 95 03/17/17 20:00 95 03/17/17 20:00 98.0 94 16 116/66 100 03/17/17 17:41 Nasal Cannula 2.00 03/17/17 16:00 97.8 86 20 136/68 92 03/17/17 12:00 97.6 82 20 98/70 95 03/17/17 09:00 81 -: 03/17/17 0530 03/18/17 0543 Physical Exam General Appearance: Well Developed, No Acute Distress, Comfortable Eyes Eye Exam: Pupils Equal, Pupils Reactive Throat Throat Exam: Oral Mucosa Pinch & Moist Pulmonary Resp Exam: Clear Bilaterally, Breath Sounds Equal Cardiology CV Exam: Regular, Normal Sinus Rhythm Gastrointestinal/Abdomen GI Exam: Soft, Non-Tender, Bowel Sounds Present Genitourinary Exam: Clear Urine Musculoskeletal MS Exam: Joints Intact, Normal Gait, Normal Tone, Good Strength Integumentary Skin Exam: Clear, Warm, Dry Extremeties Extremities Exam: Pedal Pulses Palpable, Pitting Edema Neurologic Neuro Exam: Alert, Awake, Oriented, Speech Clear, Moving All Extremities Psychiatric Psych Exam: Appropriate Responses Assessment/Plan Discussed Condition With: Patient Assessment Summary: CHF, Hypotension Problem List: (1) TRAM (acute kidney injury) Plan: TRAM likely secondary to hypotension, as with improvement in BP renal function improved. Due to renal hypoperfusion. Continue supportive care. Avoid nephrotoxic agents. (2) CHF (congestive heart failure) Plan: Cardiology following. We have resumed Lasix. Good diuresis in the last 24 hours. Monitor fluid and electrolyte status. (3) Hyperkalemia Plan: Improved. Spironolactone held temporarily. (4) Hyponatremia Plan: Due to non osmotic release of ADH resulting from hypotension, cardiomyopathy. 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 Continue loop diuretic. Salt tablet should not be used in this condition. (5) Right kidney mass Plan: urology has evaluated, eventually will require nephrectomy Problem Qualifiers (1) CHF (congestive heart failure): Qualified Code: I50.9 - Acute on chronic congestive heart failure, unspecified congestive heart failure type Eben Kim MD Mar 18, 2017 08:11
[2017-03-18] MEDS: GABAPENTIN 300 MG CAP PO SCH ×3 (10:06→18:09)
[2017-03-18] MEDS: RIVAROXABAN 20 MG TAB PO SCH (10:07)
[2017-03-18] MEDS: ALLOPURINOL 100 MG TAB PO SCH (10:07)
[2017-03-18] MEDS: CARVEDILOL 3.125 MG TAB PO SCH ×2 (10:07→20:48)
[2017-03-18] MEDS: LACTOBACILLUS ACIDOPHILUS TAB PO SCH ×3 (10:07→18:09)
[2017-03-18] MEDS: FUROSEMIDE 40 MG/4 ML VIAL IV PUSH SCH (10:08)
[2017-03-18] MEDS: ACETAMINOPHEN/HYDROcodone 325 MG/10 MG TAB PO PRN ×2 (10:08→18:10)
[2017-03-18] MEDS: DOCUSATE SODIUM 50 MG/SENNA 8.6 MG TAB PO SCH ×2 (10:08→20:48)
[2017-03-18] MEDS: SODIUM CHLORIDE 0.9% FLUSH 10 ML FLUSH IV FLUSH SCH ×2 (10:08→20:48)
--- NOTE | 2017-03-18 10:59 | HHI.PR ---
Subjective Remarks Follow up CHF. Patient with intermittent dyspnea, especially with exertion. No chest pain. Swelling has gotten worse. Objective Vitals Vital Signs Date Time Temp Pulse Resp B/P Pulse Ox O2 Delivery O2 Flow Rate FiO2 03/18/17 08:00 97.3 85 16 135/73 93 03/18/17 04:00 97.3 89 18 114/75 98 03/18/17 00:00 97.4 94 16 119/69 95 03/17/17 20:00 95 03/17/17 20:00 98.0 94 16 116/66 100 03/17/17 17:41 Nasal Cannula 2.00 03/17/17 16:00 97.8 86 20 136/68 92 03/17/17 12:00 97.6 82 20 98/70 95 I/O 03/17/17 03/17/17 03/17/17 03/18/17 03/18/17 03/18/17 07:00 15:00 23:00 07:00 15:00 23:00 Intake Total 120 ml 100 ml 100 ml Output Total 100 ml 900 ml 2050 ml 800 ml Balance -100 ml -780 ml -1950 ml -700 ml Intake Oral 120 ml 100 ml 100 ml Output Urine Total 100 ml 900 ml 2050 ml 800 ml # Bowel Movements 0 1 0 1 Result Diagram: 03/17/17 0530 03/18/17 0543 Imaging Last Impressions Lower Extremity Ultrasound 03/11/17 0000 Signed Impressions: Service Date/Time: February 17:21 - CONCLUSION: Normal examination. K. Hany Dee MD Chest X-Ray 03/10/17 1237 Signed Impressions: Service Date/Time: Friday, March 10, 2017 12:56 - CONCLUSION: 1. Congestive failure. Similar exam to prior. Josh Cadet MD Objective Remarks General: No acute distress. Sitting up in a chair. LifeVest. Heart: Regular rate and rhythm. No murmur. Lungs: Crackles noted bilaterally. Breathing is nonlabored. Abdomen: Soft, nontender, nondistended. Extremities: 2+ bilateral lower extremity edema, worse today in both feet. Psych: Alert and oriented. 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 Acute exacerbation of chronic systolic congestive heart failure: Secondary to nonischemic cardiomyopathy. Last echocardiogram showed ejection fraction 20- 25%. Continue diuresis, fluid restriction. Appreciate cardiology recommendations. LifeVest in place. Lower extremity swelling is increasing. Lower extremity ultrasound negative for DVT. 2. COPD: Continue duo nebs as needed. 3. History of left ventricular thrombus: This was seen on echocardiogram in December 2016. Repeat echo in January 2017 did not show thrombus. Continue Xarelto. 4. Right renal mass: Suspicious for renal cell carcinoma. This was previously evaluated by interventional radiology, and reportedly not amenable to cryoablation. Appreciate Urology recommendations. 5. DVT prophylaxis: Xarelto. 6. Hyperkalemia: Resolved. 7. Hyponatremia: Diuretics adjusted. Appreciate nephrology recommendations. Improving. 8. Acute kidney injury: Secondary to hypotension, diuresis. Appreciate nephrology recommendations. Improving. 9. Poor prognosis. Consult palliative care. Toni Collado MD Mar 18, 2017 10:59
--- NOTE | 2017-03-18 17:27 | PD.CONS ---
Consult Service Palliative Care Consult Requested By Dr. Collado Primary Care Physician No Primary Care Physician Reason for Consultation a. To assist with evaluation and management of symptoms including: Shortness of breath, edema and debility. b. To assist medical decision maker(s) with: better understanding of current medical conditions; weighing benefits/burdens of medical treatment options; making medical treatment decisions. . HPI History of Present Illness Mr. Tineo is a 51-year-old male with a medical history significant for CHF, hypertension, COPD, right kidney mass and recent acute hospitalizations who presented to the ED on 03/10/17 for evaluation of shortness of breath and worsening bilateral lower extremity edema. As per medical records, patient reports that dyspnea has been progressively getting worse since December 2016. Patient presented to his PCP to establish care and was sent immediately to the emergency room secondary to shortness of breath. Patient with nonischemic cardiomyopathy with EF of 20-25%. Chest x-ray indicating congestive failure. Laboratory workup showing WBC 10.7, Hgb 12.3, platelet count 291. Sodium 146, potassium 3.9, BUN/creatinine 23/1.07. CK-MB 4.9, troponin 0.04. BNP 2296. Patient was admitted for further management of acute CHF exacerbation.. EKG 03/12/17 showing left atrial enlargement, marked left axis deviation, incomplete right bundle branch block, ST deviation and moderate T-wave abnormality. Cardiology, Dr. Myles consulted on 03/12/17. Patient with history of cardiac catheter in December 2016 showing nonobstructive coronary artery disease. Patient with nonischemic cardiomyopathy. Life vest on medical management recommended. Repeat echocardiogram 03/15/17 showing severely reduced left ventricular systolic function with EF 20-25%. Nephrology, Dr. Kim consulted on 03/16/17 for evaluation of acute kidney injury. Patient with creatinine on arrival at 0.96, increased to 1.84. Acute kidney injury likely secondary to hypotension and CHF exacerbation. Medical management recommended. Prognosis reported as guarded. Urology, Dr. Sage consulted on 03/16/17 for evaluation of renal mass. MRI back in December revealing right renal mass measuring 5.9 x 4.4 cm, highly suspicious for renal carcinoma. As per Dr. Sage, patient will require right radical nephrectomy in the future, not recommended at this time secondary to acute CHF exacerbation and onset of acute renal failure. Patient reporting increased symptoms burden to include dyspnea with minimal exertion and worsening leg edema. Palliative care has been consulted for further clarifications of goals of care given patient's poor prognosis. Reviewed patient's past medical history. This is patient's fifth acute hospitalization since November 2016. Patient tells me that prior to November, he was symptomatic but was unable to seek any medical care prior to that secondary to lack of health insurance. Prior hospitalization from 12/27/16 to 01/10/17, patient diagnosed with new onset of CHF. Patient underwent cardiac catheter on 12/29/16, patient diagnosed with nonobstructive CAD and nonischemic cardiomyopathy. Life has was recommended at that time. Hospitalization from to 01/23/17 secondary to CHF exacerbation and abdominal pain. CT of pelvis and abdomen 01/11/17 revealing solid mass to right mid kidney concerning for renal cell carcinoma, in addition to abdominal ascites. Ultrasound guided paracentesis obtained, ascites fluid negative for malignancy. Oncology was consulted at that time for evaluation of abdominal mass. Urology, Dr. Sage consulted, recommending right radical nephrectomy. Subsequent hospitalization from 01/29/17 to 01/31/17 secondary to CHF exacerbation and persistent abdominal pain. Follow-up echo completed on 01/29/17, EF 20-25%. Most recent admission from 02/09/17 to 02/26/17 secondary to right kidney mass, CHF exacerbation. Oncology recommended CT-guided biopsy with possible cryoablation of right kidney mass. IR consulted 02/12/17, the renal lesion was found not technically amenable to the thermal ablation primary due to size and proximity to the ureter. Patient was seen in his room, he was sitting in recliner chair in no acute distress. Endorsing dyspnea on minimal exertion. Worsening bilateral lower extremities edema and pain. Laboratory workup today showing sodium 140, potassium 5.0, BUN/creatinine 39/1.01. Albumin 3.0. Patient afebrile, stable hemodynamically. Currently on 2 L nasal cannula, oxygen saturation in the mid 90s. She was participating in physical therapy, dyspnea and oxygen desaturation on exertion. Reports fair appetite, no difficulty swallowing. In this first visit, reviewed the role of palliative care in advanced illness in regards to symptom management as well as support surrounding goals of care and advance care planning. Patient receptive to my visit. Obtain past medical history and psychosocial history. Lengthy conversation regarding patient's end- stage heart failure, nonischemic cardiomyopathy, renal mass likely representing renal carcinoma. Reviewed pathophysiology of condition. Discussed that CHF is progressive, shared reviewed symptom burden and symptom management. Patient voices understanding of his worsening clinical condition. Patient very emotional, states that he needs time to process his poor prognosis, reports that he is coping well but tends to ruminate when alone and worry about his elderly mother and partner of 21 years Norbert. Patient wishing to continue goals of care conversation tomorrow 03/19/17 at 4 PM with his partner Norbert Sommer present. . Function/Cognitive Trajectory Patient with declined physical function since November 2016. Increased central burden secondary to worsening CHF. Limited ambulation secondary to dyspnea. No assistive devices use. Independent with ADLs prior to these hospitalization. No cognitive decline reported. . Review of Systems Constitutional: COMPLAINS OF: Fatigue, Weight gain, Change in appetite, Pain, DENIES: Fever Endocrine: DENIES: Heat/cold intolerance Eyes: DENIES: Eye pain Ears, nose, mouth, throat: DENIES: Nasal discharge, Oral lesions, Running Nose Respiratory: COMPLAINS OF: Shortness of breath, DENIES: Cough Cardiovascular: COMPLAINS OF: Dyspnea on Exertion, Lower Extremity Edema, Orthopnea, DENIES: Chest pain Gastrointestinal: COMPLAINS OF: Abdominal pain, Diarrhea, DENIES: Nausea, Vomiting, Difficulty Swallowing Genitourinary: COMPLAINS OF: Urinary frequency, Hesitancy Musculoskeletal: COMPLAINS OF: Decreased range of motion Integumentary: DENIES: Abnormal pigmentation Hematologic/Lymphatics: COMPLAINS OF: Bruising Immunologic/Allergic: DENIES: Eczema Neurologic: COMPLAINS OF: Abnormal gait, DENIES: Localized weakness, Tremor Psychiatric: COMPLAINS OF: Depression, DENIES: Hallucinations, Suicidal Ideation, Homicidal Ideation Past Family Social History Coded Allergies: Ibuprofen (Verified Allergy, Severe, Nausea/Vomiting, 03/10/17) Levaquin (Verified Allergy, Mild, EDEMA, 03/10/17) Ultram (Verified Allergy, Mild, ITCHING, 03/10/17) Past Medical History CHF, Echo 12/28/16 w/ EF 20% COPD Hypertension GERD Fibromyalgia Renal mass . Past Surgical History Left knee replacement. Reported Medications Albuterol Neb (Albuterol Sulfate) 2.5 Mg/3 Ml Neb 2.5 Mg NEB Q4HR NEB Lasix (Furosemide) 40 Mg Tab 40 Mg PO BID Acidophilus/l-Sporogenes (Lactobacillus Acidophilus) 1 Tab Tab 1 Tab PO TID Neurontin (Gabapentin) 300 Mg Cap 900 Mg PO TID Zyloprim (Allopurinol) 300 Mg Tab 300 Mg PO DAILY Xarelto (Rivaroxaban) 20 Mg Tab 20 Mg PO DAILY Aldactone (Spironolactone) 25 Mg Tab 25 Mg PO DAILY Baclofen 10 Mg Tab 10 Mg PO Q8HR PRN . Current Medications Medications (Trade) Dose Ordered Sig/Vishal Route Start Time Stop Time Status Last Admin (NS Flush) 2 ml UNSCH PRN IV FLUSH 03/10/17 16:00 (NS Flush) 2 ml BID IV FLUSH 03/10/17 21:00 03/18/17 10:08 (Tylenol) 650 mg Q4H PRN PO 03/10/17 16:00 03/15/17 22:43 (Zofran Inj) 4 mg Q6H PRN IVP 03/10/17 16:00 03/16/17 00:58 (Narcan Inj) 0.4 mg UNSCH PRN IV 03/10/17 16:00 (Porsha-Colace) 1 tab BID PO 03/10/17 21:00 03/18/17 10:08 (Milk Of Magnesia Liq) 30 ml Q12H PRN PO 03/10/17 16:00 (Senokot) 17.2 mg Q12H PRN PO 03/10/17 16:00 (Dulcolax Supp) 10 mg DAILY PRN RECTAL 03/10/17 16:00 (Lactulose Liq) 30 ml DAILY PRN PO 03/10/17 16:00 03/10/17 17:20 ([place] 10-325 Mg) 1 tab Q6H PRN PO 03/10/17 20:45 03/18/17 10:08 (Lioresal) 10 mg Q8HR PRN PO 03/10/17 20:45 03/10/17 22:04 (Neurontin) 900 mg TID PO 03/11/17 09:00 03/18/17 13:50 (Lactinex) 1 tab TID PO 03/11/17 09:00 03/18/17 13:50 (Xarelto) 20 mg DAILY PO 03/11/17 09:00 03/18/17 10:07 (Prinivil) 5 mg DAILY PO 03/16/17 09:00 Hold (Zyloprim) 100 mg DAILY PO 03/17/17 09:00 03/18/17 10:07 (Coreg) 3.125 mg Q12HR PO 03/17/17 09:00 03/18/17 10:07 (Lasix Inj) 40 mg DAILY IV PUSH 03/17/17 10:30 03/18/17 10:08 Family History Brother - Heart disease. Substance Use Tobacco: Former smoker for most of his adult life, 1 pack a day history. Quit a year ago. Alcohol: Patient quit EtOH use 4 years ago. Prescription med abuse: Denies. Illicits: Denies. . Psychosocial History Patient residing with her partner of 21 years Norbert prior to this hospitalization. Patient reports that he lost his home and car as he has been unable to work for the past year. Intermittent periods of homelessness. Patient worked for [employer] for over 30 years. 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 Patient is originally from [place], moved to [place] in 1983. He is , no children. He is one of 9 siblings. Twin sister Karen Tineo lives locally, all her family members in [place]. . Spiritual/Cultural Factors Yazidi. . Living Will: Never completed Health Care Surrogate: Never completed Durable Power of Kosher Sealer: Never completed Health Care Surrogate(s): Patient wishing to designate his partner Norbert Sommer as HCS, designation of healthcare surrogate documentation to be completed tomorrow 03/19/17 during our meeting. In the absence of designation of healthcare surrogate, patient's mother would be designated healthcare proxy. . Documented care wishes: No living will completed. . Today's verbally stated goals: Full code. Ongoing goals of care conversation at this time. . Ethical and Legal Issues No advance directives completed. . Physical Exam Vital Signs Date Time Temp Pulse Resp B/P Pulse Ox O2 Delivery O2 Flow Rate FiO2 03/18/17 12:00 97.6 86 18 119/68 100 03/18/17 11:45 18 03/18/17 11:19 94 Nasal Cannula 2.00 03/18/17 08:00 97.3 85 16 135/73 93 03/18/17 04:00 97.3 89 18 114/75 98 03/18/17 00:00 97.4 94 16 119/69 95 03/17/17 20:00 95 03/17/17 20:00 98.0 94 16 116/66 100 03/17/17 17:41 Nasal Cannula 2.00 03/17/17 03/18/17 19:00 07:00 Intake Total 120 ml 200 ml Output Total 900 ml 2850 ml Balance -780 ml -2650 ml Intake Oral 120 ml 200 ml Output Urine Total 900 ml 2850 ml # Bowel Movements 1 1 Exam CONSTITUTIONAL/GENERAL: This is an adequately nourished patient in no apparent distress. TUBES/LINES/DRAINS: PIV's, life vest. SKIN: No jaundice, rashes, or lesions. Ecchymoses on upper extremities. Skin temperature appropriate. Not diaphoretic. HEAD: Atraumatic. Normocephalic. EYES: Pupils equal and round and reactive. Extraocular motions intact. No scleral icterus. No injection or drainage. ENT: Hearing grossly normal. Nose without bleeding or purulent drainage. Moist oral mucosa, edentulous NECK: Trachea midline. Supple, nontender. CARDIOVASCULAR: Regular rate and rhythm. Life vest in place. Vascular color changes and weeping edema to bilateral lower extremities. RESPIRATORY/CHEST: Symmetric, increased work of breathing at times. Faint crackles bilaterally. Dyspnea on exertion. GASTROINTESTINAL: Abdomen round, large, mildly tender. No guarding. Bowel sounds present. GENITOURINARY: Without palpable bladder distension. MUSCULOSKELETAL: Extremities without clubbing, Vascular color changes and weeping edema to bilateral lower extremities. NEUROLOGICAL: Awake and alert. Motor and sensory grossly within normal limits. Follows commands. Cognitively sharp. Moves all extremities. PSYCHIATRIC: Tearful, sad . Diagnostic Tests Laboratory Laboratory Tests Test 03/16/17 03/17/17 03/17/17 03/18/17 05:16 05:30 14:00 05:43 White Blood Count 11.8 TH/MM3 10.5 TH/MM3 (4.0-11.0) (4.0-11.0) Red Blood Count 4.83 MIL/MM3 4.69 MIL/MM3 (4.50-5.90) (4.50-5.90) Hemoglobin 11.9 GM/DL 11.8 GM/DL (13.0-17.0) (13.0-17.0) Hematocrit 38.3 % 37.1 % (39.0-51.0) (39.0-51.0) Mean Corpuscular Volume 79.4 FL 79.1 FL (80.0-100.0) (80.0-100.0) Mean Corpuscular Hemoglobin 24.7 PG 25.2 PG (27.0-34.0) (27.0-34.0) Mean Corpuscular Hemoglobin 31.1 % 31.8 % Concent (32.0-36.0) (32.0-36.0) Red Cell Distribution Width 18.5 % 18.4 % (11.6-17.2) (11.6-17.2) Platelet Count 222 TH/MM3 193 TH/MM3 (150-450) (150-450) Mean Platelet Volume 9.3 FL 9.5 FL (7.0-11.0) (7.0-11.0) Neutrophils (%) (Auto) 68.2 % 58.5 % (16.0-70.0) (16.0-70.0) Lymphocytes (%) (Auto) 18.1 % 23.8 % (9.0-44.0) (9.0-44.0) Monocytes (%) (Auto) 11.2 % 14.4 % (0.0-8.0) (0.0-8.0) Eosinophils (%) (Auto) 1.9 % (0.0-4.0) 2.3 % (0.0-4.0) Basophils (%) (Auto) 0.6 % (0.0-2.0) 1.0 % (0.0-2.0) Neutrophils # (Auto) 8.1 TH/MM3 6.2 TH/MM3 (1.8-7.7) (1.8-7.7) Lymphocytes # (Auto) 2.1 TH/MM3 2.5 TH/MM3 (1.0-4.8) (1.0-4.8) Monocytes # (Auto) 1.3 TH/MM3 1.5 TH/MM3 (0-0.9) (0-0.9) Eosinophils # (Auto) 0.2 TH/MM3 0.2 TH/MM3 (0-0.4) (0-0.4) Basophils # (Auto) 0.1 TH/MM3 0.1 TH/MM3 (0-0.2) (0-0.2) CBC Comment DIFF FINAL DIFF FINAL Differential Comment Prothrombin Time 15.4 SEC (9.8-11.6) Prothromb Time International 1.4 RATIO Ratio Sodium Level 127 MEQ/L 128 MEQ/L 130 MEQ/L (136-145) (136-145) (136-145) Potassium Level 5.4 MEQ/L 5.2 MEQ/L 5.0 MEQ/L (3.5-5.1) (3.5-5.1) (3.5-5.1) Chloride Level 90 MEQ/L 93 MEQ/L 93 MEQ/L (98-107) (98-107) (98-107) Carbon Dioxide Level 29.5 MEQ/L 26.9 MEQ/L 30.3 MEQ/L (21.0-32.0) (21.0-32.0) (21.0-32.0) Anion Gap 8 MEQ/L (5-15) 8 MEQ/L (5-15) 7 MEQ/L (5-15) Blood Urea Nitrogen 63 MG/DL (7-18) 58 MG/DL (7-18) 39 MG/DL (7-18) Creatinine 1.84 MG/DL 1.25 MG/DL 1.01 MG/DL (0.60-1.30) (0.60-1.30) (0.60-1.30) Estimat Glomerular Filtration 39 ML/MIN (>89) 60 ML/MIN (>89) 77 ML/MIN (>89) Rate Random Glucose 106 MG/DL 83 MG/DL 88 MG/DL (74-106) (74-106) (74-106) Calcium Level 8.1 MG/DL 8.3 MG/DL 8.6 MG/DL (8.5-10.1) (8.5-10.1) (8.5-10.1) Magnesium Level 2.6 MG/DL (1.5-2.5) Total Bilirubin 0.6 MG/DL (0.2-1.0) Aspartate Amino Transf 29 U/L (15-37) (AST/SGOT) Alanine Aminotransferase 99 U/L (12-78) (ALT/SGPT) Alkaline Phosphatase 103 U/L (45-117) Total Protein 7.1 GM/DL (6.4-8.2) Albumin 3.1 GM/DL 3.0 GM/DL (3.4-5.0) (3.4-5.0) Phosphorus Level 3.7 MG/DL 3.1 MG/DL (2.5-4.9) (2.5-4.9) Urine Color YELLOW (YELLW/STRAW) Urine Turbidity CLEAR (CLEAR) Urine pH 6.0 (5.0-8.5) Urine Specific [place] 1.011 (1.002-1.035) Urine Protein NEG mg/dL (NEG-TRACE) Urine Glucose (UA) NEG mg/dL (NEG) Urine Ketones NEG mg/dL (NEG) Urine Occult Blood NEG (NEG) Urine Nitrite NEG (NEG) Urine Bilirubin NEG (NEG) Urine Urobilinogen LESS THAN 2.0 MG/DL (LESS THAN 2.0) Urine Leukocyte Esterase NEG (NEG) Urine RBC LESS THAN 1 /hpf (0-3) Urine WBC 1 /hpf (0-5) Microscopic Urinalysis Comment CULT NOT INDICATED Result Diagram: 03/17/17 0530 03/18/17 0543 Imaging Last Impressions Lower Extremity Ultrasound 03/11/17 0000 Signed Impressions: Service Date/Time: February 17:21 - CONCLUSION: Normal examination. Letty Dee MD Chest X-Ray 03/10/17 1237 Signed Impressions: Service Date/Time: Friday, March 10, 2017 12:56 - CONCLUSION: 1. Congestive failure. Similar exam to prior. Josh Cadet MD Patient/Family Conference Present at Family Conference: Patient. Family Conference Time (mins): 46 Family Conference Location: Bedside Issues Discussed: * Palliative care role, purpose, approach * Additional medical, psychosocial, and spiritual history * Patients general health, functional status, and cognitive changes in the months leading up to the current hospitalization * Patient understanding of the current medical problems -end-stage systolic congestive heart failure secondary to nonischemic cardiomyopathy, COPD, right renal mass likely suspicious for renal cell carcinoma * Patient/family understanding of prognosis -poor given the above * Patients goals of care as best understood from advance directives and/or conversations and/or values * Current medical treatment options and benefits/burdens of those options * Questions answered to the best of my ability * Palliative care contact information provided * Risks, benefits and limitations of CPR given patient's clinical condition . Assessment and Plan Disease Oriented Problem List: (1) Acute on chronic congestive heart failure (2) Acute kidney injury (3) Right kidney mass (4) Cardiomyopathy (5) COPD (chronic obstructive pulmonary disease) Symptom Scale: (1) Pain 0-10 Scale: 4 Comment: Pain to bilateral lower extremities. (2) Shortness of breath 0-10 Scale: 5 Comment: Pain on exertion (3) Edema 0-10 Scale: Unable to quantify Comment: Worsening edema to bilateral lower extremities Pertinent Non-Medical Issues Psychosocial: Originally from [place]. , has no children. High school education. 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 Currently unemployed. Spiritual: Yazidi. Legal: No advance directives completed. Ethical issues impacting care: No advance directives completed. . Important Contacts Norbert Sommer . . Prognosis Mr. Tineo is a 51-year-old male with a medical history significant for CHF, hypertension, COPD, right kidney mass and recent acute hospitalizations who presented to the ED on 03/10/17 for evaluation of shortness of breath and worsening bilateral lower extremity edema. Patient with renal mass suggestive of renal cell carcinoma, radical nephrectomy recommended but patient unable to tolerate surgical intervention secondary to clinical condition. Patient exhibiting exacerbation of chronic systolic congestive heart failure secondary to nonischemic cardiomyopathy with EF of 20-25%. Currently end-stage CHF, NYHA III, symptomatic on exertion. with tachyarrhythmias, currently wearing LifeVest. Patient's prognosis is poor, likely cardiorenal syndrome. Patient at high risk for further complications, continue decline and . . Code Status: Full Code Plan * CODE STATUS: Full code. Risks, benefits and limitations of CPR given patient' s condition has been discussed. * HEALTHCARE DECISION-MAKING: Patient participating in medical decision-making. Patient seems to have a fair understanding of his medical condition and inability to weight the benefits and burdens of treatment options. Patient wishing to designate his partner Norbert Sommer as HCS, designation of healthcare surrogate documentation to be completed tomorrow 03/19/17 during our meeting. In the absence of designation of healthcare surrogate, patient's mother would be designated healthcare proxy. * GOALS OF CARE: Ongoing goals of care conversation. Patient requesting to continue conversation tomorrow 03/19/17 at 4 PM when his partner of 21 years, Norbert is present. * Lengthy conversation with patient regarding his end-stage heart failure, nonischemic cardiomyopathy, renal mass likely representing renal carcinoma. Reviewed pathophysiology of condition. Discussed that CHF is a chronic progressive condition, shared reviewed symptom burden and symptom management. Patient voices understanding of his worsening clinical condition. Patient very emotional, states that he needs time to process his poor prognosis, reports that he is coping well but tends to ruminate when alone and worry about his elderly mother and partner of 21 years -Norbert. Patient wishing to continue goals of care conversation tomorrow 03/19/17 at 4 PM with his partner Norbert Sommer present. * SYMPTOMS: = Pain, lower extremity secondary to worsening edema. [place] 10/325 mg Q6h available as needed. Patient takes an average of 1 to 2 pills daily. Gabapentin 900 mg 3 times a day for chronic pain/fibromyalgia. = Shortness of breath, secondary to acute CHF exacerbation, COPD. Currently O2 via nasal cannula 2 L. = Edema, lower extremities. Secondary to CHF. Lasix 40 mg daily. * Spiritual services offered and accepted. Referral made. * Ongoing emotional support and active listening provided. * Palliative care contact information has been provided. * Palliative care will continue to follow-up for further clarifications of goals of care, emotional support as patient's clinical course continued to evolve. . Time Spent Total Floor Time (mins): 105 (Total time to include review and summarization of available medical records to include multiple prior acute hospitalizations and ED visits, physical exam, lengthy goals of care conversation with patient. ) Face to Face Time (mins): 82 >50% Counseling/Coord of Care: Yes Thank you for the opportunity to participate in the care of Mr. Tineo. Attestation To help prompt me to consider important information that might be impacting today's encounter and assessment, information from prior notes written by myself or my colleagues may have been "brought forward" into today's note. My signature on this note, however, is an attestation that I personally performed the exam, history, and/or decision-making noted today, and, unless otherwise indicated, the interactions with patient, family, and staff as well as the review of records all occurred today. I also attest that the listed assessment and stated plan reflect my best clinical judgment today based on the combination of historical information, prior notes, and today's exam/ interactions. When time spent is documented, it refers only to time spent today by the signer, or if indicated, combined time spent today by collaborating physician/nurse practitioner. Missy Franks Mar 18, 2017 17:09
[2017-03-19] VITALS (9 sets, daily range): BP systolic 109–134; BP diastolic 75–85; PULSE 94–110; RESP 18–20; TEMP 97–98; O2SAT 94–100
[2017-03-19] MEDS: ACETAMINOPHEN/HYDROcodone 325 MG/10 MG TAB PO PRN ×4 (01:23→18:06)
[2017-03-19] MEDS: DOCUSATE SODIUM 50 MG/SENNA 8.6 MG TAB PO SCH ×2 (07:42→21:00)
[2017-03-19] MEDS: RIVAROXABAN 20 MG TAB PO SCH (07:42)
[2017-03-19] MEDS: LACTOBACILLUS ACIDOPHILUS TAB PO SCH ×3 (07:42→17:50)
[2017-03-19] MEDS: CARVEDILOL 3.125 MG TAB PO SCH ×2 (07:42→21:02)
[2017-03-19] MEDS: ALLOPURINOL 100 MG TAB PO SCH (07:43)
[2017-03-19] MEDS: SODIUM CHLORIDE 0.9% FLUSH 10 ML FLUSH IV FLUSH SCH ×2 (07:43→21:02)
[2017-03-19] MEDS: FUROSEMIDE 40 MG/4 ML VIAL IV PUSH SCH (07:43)
[2017-03-19] MEDS: GABAPENTIN 300 MG CAP PO SCH ×3 (07:43→17:49)
--- NOTE | 2017-03-19 08:29 | PD.CARD.PN ---
Subjective Subjective Remarks breathing improved Objective Vital Signs / I&O Vital Signs Date Time Temp Pulse Resp B/P Pulse Ox O2 Delivery O2 Flow Rate FiO2 03/19/17 07:43 18 03/19/17 04:06 98.0 94 20 128/75 98 03/19/17 04:00 Room Air 03/19/17 04:00 Room Air 03/19/17 00:00 97.3 98 20 124/85 95 03/19/17 00:00 Room Air 03/18/17 20:00 98.2 101 20 117/60 96 03/18/17 20:00 96 03/18/17 20:00 Room Air 03/18/17 19:34 101 03/18/17 16:00 97.8 93 16 112/69 98 03/18/17 12:00 97.6 86 18 119/68 100 03/18/17 11:19 94 Nasal Cannula 2.00 I/O 03/18/17 03/18/17 03/18/17 03/19/17 03/19/17 03/19/17 07:00 15:00 23:00 07:00 15:00 23:00 Intake Total 100 ml 600 ml 482 ml 120 ml Output Total 800 ml 1400 ml 1875 ml 575 ml Balance -700 ml -800 ml -1393 ml -455 ml Intake Oral 100 ml 600 ml 480 ml 120 ml IV Total 2 ml Output Urine Total 800 ml 1400 ml 1875 ml 575 ml # Bowel Movements 1 1 1 Physical Exam GENERAL: Well-nourished, well-developed patient in no apparent distress. NECK: No JVD. No carotid bruit. CARDIOVASCULAR: Regular rate and rhythm. S1/S2 no murmur, rub, or gallop. RESPIRATORY: No accessory muscle use. clear to auscultation. Breath sounds equal bilaterally. GASTROINTESTINAL: Abdomen soft, non-tender, nondistended. MUSCULOSKELETAL: +2 ankle and pretibial edema bilaterally Assessment and Plan Problem List: (1) CHF (congestive heart failure) (2) Cardiomyopathy Assessment and Plan Renal function BMP ordered Diuretics restarted, >5 L off last 48 hours hyponatremia - BMP pending Continues current medical regimen LV thrombus - continue Xarelto Problem Qualifiers (1) CHF (congestive heart failure): Qualified Code: I50.9 - Acute on chronic congestive heart failure, unspecified congestive heart failure type Yaya Esposito Mar 19, 2017 08:29
[2017-03-19 10:30] LABS: POTASSIUM 4.2 MEQ/L (3.5-5.1)
[2017-03-19 10:31] LABS: BICARBONATE 31.9 MEQ/L (21.0-32.0)
--- NOTE | 2017-03-19 11:45 | HHI.FF ---
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 My clinical findings support the need for the requested home health care services because: Patient has SOB Deconditioned w/ increased weakness I certify that my clinical findings support that this patient is homebound because: Poor cardiac reserve Toni Collado MD Mar 19, 2017 11:44
[2017-03-19] MEDS ORDERED: CARV3.125 PO (14:55)
[2017-03-19] MEDS ORDERED: ALLO100 PO (14:55)
[2017-03-19] MEDS ORDERED: HYDR-3583 PO (14:56)
--- NOTE | 2017-03-19 14:57 | HHI.DCPOC ---
Discharge Care Plan Diagnosis: (1) Cardiomyopathy (2) Hyponatremia (3) Hyperkalemia (4) Acute kidney injury (5) Shortness of breath (6) Edema (7) Pain (8) Left ventricular thrombosis without [place] (9) Acute on chronic congestive heart failure (10) Right kidney mass Goals to Promote Your Health * To prevent worsening of your condition and complications * To maintain your health at the optimal level Directions to Meet Your Goals Take your medications as prescribed Follow your dietary instruction Follow activity as directed Keep your appointments as scheduled Take your immunizations and boosters as scheduled If your symptoms worsen call your PCP, if no PCP go to Urgent Care Center or Emergency Room Smoking is Dangerous to Your Health. Avoid second hand smoke Call the 24-hour hour crisis hotline for domestic abuse at Toni Collado MD Mar 19, 2017 14:57
--- NOTE | 2017-03-19 15:00 | HHI.PR ---
Subjective Remarks Follow-up CHF, electrolyte abnormalities, edema. Patient denies chest pain or dyspnea today. He is ambulating in the room. He has swelling that is intermittently greater on the right and left. Objective Vitals Vital Signs Date Time Temp Pulse Resp B/P Pulse Ox O2 Delivery O2 Flow Rate FiO2 03/19/17 13:46 18 03/19/17 12:00 97.0 103 18 126/77 94 03/19/17 09:08 98 03/19/17 08:00 97.0 94 20 126/76 100 03/19/17 04:06 98.0 94 20 128/75 98 03/19/17 04:00 Room Air 03/19/17 04:00 Room Air 03/19/17 00:00 97.3 98 20 124/85 95 03/19/17 00:00 Room Air 03/18/17 20:00 98.2 101 20 117/60 96 03/18/17 20:00 96 03/18/17 20:00 Room Air 03/18/17 19:34 101 03/18/17 16:00 97.8 93 16 112/69 98 I/O 03/18/17 03/18/17 03/18/17 03/19/17 03/19/17 03/19/17 07:00 15:00 23:00 07:00 15:00 23:00 Intake Total 100 ml 600 ml 482 ml 120 ml Output Total 800 ml 1400 ml 1875 ml 575 ml Balance -700 ml -800 ml -1393 ml -455 ml Intake Oral 100 ml 600 ml 480 ml 120 ml IV Total 2 ml Output Urine Total 800 ml 1400 ml 1875 ml 575 ml # Bowel Movements 1 1 1 Result Diagram: 03/17/17 0530 03/19/17 0807 Imaging Last Impressions Lower Extremity Ultrasound 03/11/17 0000 Signed Impressions: Service Date/Time: February 17:21 - CONCLUSION: Normal examination. K. Hany Dee MD Chest X-Ray 03/10/17 1237 Signed Impressions: Service Date/Time: Friday, March 10, 2017 12:56 - CONCLUSION: 1. Congestive failure. Similar exam to prior. Josh Cadet MD Objective Remarks General: No acute distress. Sitting up in a chair. LifeVest. Heart: Regular rate and rhythm. No murmur. Lungs: Crackles noted bilaterally. Breathing is nonlabored. Abdomen: Soft, nontender, nondistended. Extremities: 2+ bilateral lower extremity edema. Psych: Alert and oriented. 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 Acute exacerbation of chronic systolic congestive heart failure: Secondary to nonischemic cardiomyopathy. Last echocardiogram showed ejection fraction 20- 25%. Continue diuresis, fluid restriction. Appreciate cardiology recommendations. LifeVest in place. Lower extremity swelling is increasing. Lower extremity ultrasound negative for DVT. 2. COPD: Continue duo nebs as needed. 3. History of left ventricular thrombus: This was seen on echocardiogram in December 2016. Repeat echo in January 2017 did not show thrombus. Continue Xarelto. 4. Right renal mass: Suspicious for renal cell carcinoma. This was previously evaluated by interventional radiology, and reportedly not amenable to cryoablation. Appreciate Urology recommendations. 5. DVT prophylaxis: Xarelto. 6. Hyperkalemia: Resolved. 7. Hyponatremia: Resolved. 8. Acute kidney injury: Secondary to hypotension, diuresis. Appreciate nephrology recommendations. Improving. 9. Appreciate palliative care recommendations. The patient is scheduled to meet with palliative care again this afternoon. Discharge Planning I have spoken with cardiology, who has cleared the patient for discharge. We'll discharge home in stable condition. Follow-up with PCP, cardiology, urology. Toni Collado MD Mar 19, 2017 15:00
--- NOTE | 2017-03-19 15:39 | HHI.FF ---
Face to Face Verification Diagnosis: (1) CHF (congestive heart failure) Home Health Nursing Order: CHF education Nursing assessment with vital signs I have seen patient Dann Tineo on 03/19/17. My clinical findings support the need for the requested home health care services because: Patient has SOB I certify that my clinical findings support that this patient is homebound because: Poor cardiac reserve Toni Collado MD Mar 19, 2017 15:39
--- NOTE | 2017-03-19 15:44 | HHI.NPPN ---
Subjective Renal Failure: Acute Interval History Preparing for discharge. He has some edema, erythema to lower legs. (Natasha Oropeza) Review of Systems General Constitutional: Fatigue, Weight Change (Natasha Oropeza) Respiratory Lungs: SOB (Natasha Oropeza) Cardiovascular Cardiac: Edema, DECKER (Natasha Oropeza) Objective Data Data 03/18/17 03/19/17 19:00 07:00 Intake Total 600 ml 602 ml Output Total 1400 ml 2450 ml Balance -800 ml -1848 ml Intake Oral 600 ml 600 ml IV Total 2 ml Output Urine Total 1400 ml 2450 ml # Bowel Movements 1 1 Vital Signs Date Time Temp Pulse Resp B/P Pulse Ox O2 Delivery O2 Flow Rate FiO2 03/19/17 13:46 18 03/19/17 12:00 97.0 103 18 126/77 94 03/19/17 09:08 98 03/19/17 08:00 97.0 94 20 126/76 100 03/19/17 04:06 98.0 94 20 128/75 98 03/19/17 04:00 Room Air 03/19/17 04:00 Room Air 03/19/17 00:00 97.3 98 20 124/85 95 03/19/17 00:00 Room Air 03/18/17 20:00 98.2 101 20 117/60 96 03/18/17 20:00 96 03/18/17 20:00 Room Air 03/18/17 19:34 101 03/18/17 16:00 97.8 93 16 112/69 98 (Natasha Oropeza) -: 03/17/17 0530 03/19/17 0807 Physical Exam General Appearance: Well Developed, No Acute Distress, Comfortable (Natasha Oropeza) Eyes Eye Exam: Pupils Equal, Pupils Reactive (Natasha Oropeza) Throat Throat Exam: Oral Mucosa Accord & Moist (Natasha Oropeza) Pulmonary Resp Exam: Clear Bilaterally, Breath Sounds Equal (Natasha Oropeza) Cardiology CV Exam: Regular, Normal Sinus Rhythm CV Remarks life vest in place (Natasha Oropeza) Gastrointestinal/Abdomen GI Exam: Soft, Non-Tender, Bowel Sounds Present (Natasha Oropeza) Genitourinary Exam: Clear Urine (Natasha Oropeza) Musculoskeletal MS Exam: Joints Intact, Normal Gait, Normal Tone, Good Strength (Natasha Oropeza) Integumentary Skin Exam: Clear, Warm, Dry (Natasha Oropeza) Extremeties Extremities Exam: Pedal Pulses Palpable, Pitting Edema (Natasha Oropeza ) Neurologic Neuro Exam: Alert, Awake, Oriented, Speech Clear, Moving All Extremities ( Natasha Oropeza) Psychiatric Psych Exam: Appropriate Responses (Natasha Oropeza) Assessment/Plan Discussed Condition With: Patient Assessment Summary: CHF, Hypotension Problem List: (1) TRAM (acute kidney injury) Plan: renal function has improved, TRAM likely secondary to hypotension, as with improvement in BP renal function improved. he is stable for discharge I advised to take Lasix BID, 40 mg add spironolactone if needed for edema Avoid nephrotoxic agents at home. (2) CHF (congestive heart failure) Plan: Cardiology has cleared, will see after discharge diuretics resumed (3) Hyperkalemia Plan: Improved. resume Spironolactone after discharge (4) Hyponatremia Plan: stable Due to non osmotic release of ADH resulting from hypotension, cardiomyopathy. discussed fluid restriction. Continue loop diuretic. Salt tablet should not be used in this condition. (5) Right kidney mass Plan: urology has evaluated, eventually will require nephrectomy (Natasha Oropeza) Plan patient was seen and examined. Renal function has improved. Diuretics resumed. Prognosis is guarded to poor on the fpc. (Eben Kim MD) Problem Qualifiers (1) CHF (congestive heart failure): Qualified Code: I50.9 - Acute on chronic congestive heart failure, unspecified congestive heart failure type Natasha Oropeza Mar 19, 2017 15:44 Eben Kim MD Mar 19, 2017 21:10
--- NOTE | 2017-03-19 17:10 | HHI.HCPN ---
Reason for visit a. To assist with evaluation and management of symptoms including: Shortness of breath, edema and debility. b. To assist medical decision maker(s) with: better understanding of current medical conditions; weighing benefits/burdens of medical treatment options; making medical treatment decisions. . Subjective/Interval History Mr. Tineo is a 51-year-old male with a medical history significant for systolic heart failure, nonischemic cardiomyopathy with EF of 20-25%, and right renal mass measuring 5.9 x 4.4 cm, highly suspicious for renal carcinoma. Palliative care consulted for further clarifications of goals of care and to assist with advance directives. Patient was seen in his room, he was sitting in bed in no acute distress. Endorsing dyspnea on exertion, bilateral lower extremities edema and pain. Patient afebrile, stable hemodynamically, tolerating room air with oxygen saturation in the mid to high 90s. Laboratory workup today showing sodium 137, potassium 4.2, BUN/creatinine 28/0.90. No new imaging for review. Meet with patient, friend Norbert and roommate Becca. Patient visibly upset, tearful. Reporting that he has been discharge home this afternoon but does not feel that he is ready to go home secondary to worsening edema. Friends Norbert and Becca reported that they work most of the time and that they are unable to care for patient at home secondary to increased needs. Friends are concerned about patient's ability to stay home by himself in manage his condition. Reviewed with patient and friends patient's condition to include end-stage heart failure, nonischemic cardiomyopathy, renal mass likely representing renal carcinoma. Discussed that CHF is progressive and reviewed current medical management. Patient reports that he is not in the right set of mind right now for goals of care conversation, he reports being preoccupied with discharge planning. Patient receptive to long term placement. Friends supportive of this plan. Discussed case with bedside RN and manager of case management. Assisted patient in completion of designation of healthcare surrogate. . Family/friend interactions See interval note. . Advance Directives Living Will: Never completed Health Care Surrogate: Copy in medical record Durable Power of Reservations Manager: Never completed Advance Directive Specifics Date completed: 03/19/17. . Health Care Surrogate(s): Patient designated his friend Norbert Sommer as HCS, alternate surrogate friend Kale Gillespie. . Documented care wishes: No living will completed. . Significant change in goals: Full code. Continue with aggressive management. . Objective Vital Signs Date Time Temp Pulse Resp B/P Pulse Ox O2 Delivery O2 Flow Rate FiO2 03/19/17 13:46 18 03/19/17 12:00 97.0 103 18 126/77 94 03/19/17 09:08 98 03/19/17 08:00 97.0 94 20 126/76 100 03/19/17 04:06 98.0 94 20 128/75 98 03/19/17 04:00 Room Air 03/19/17 04:00 Room Air 03/19/17 00:00 97.3 98 20 124/85 95 03/19/17 00:00 Room Air 03/18/17 20:00 98.2 101 20 117/60 96 03/18/17 20:00 96 03/18/17 20:00 Room Air 03/18/17 19:34 101 Intake & Output 03/19/17 03/19/17 06:59 18:59 Intake Total 602 ml Output Total 2450 ml Balance -1848 ml Intake Oral 600 ml IV Total 2 ml Output Urine Total 2450 ml # Bowel Movements 1 Physical Exam CONSTITUTIONAL/GENERAL: This is an adequately nourished patient in no apparent distress. TUBES/LINES/DRAINS: PIV's, life vest. SKIN: No jaundice, rashes, or lesions. Ecchymoses on upper extremities. Skin temperature appropriate. Not diaphoretic. HEAD: Atraumatic. Normocephalic. EYES: Pupils equal and round and reactive. Extraocular motions intact. No scleral icterus. No injection or drainage. ENT: Hearing grossly normal. Nose without bleeding or purulent drainage. Moist oral mucosa, edentulous NECK: Trachea midline. Supple, nontender. CARDIOVASCULAR: Regular rate and rhythm. Life vest in place. Vascular color changes and weeping edema to bilateral lower extremities. RESPIRATORY/CHEST: Symmetric, increased work of breathing at times. Faint crackles bilaterally. Dyspnea on exertion. GASTROINTESTINAL: Abdomen round, large, mildly tender. No guarding. Bowel sounds present. GENITOURINARY: Without palpable bladder distension. MUSCULOSKELETAL: Extremities without clubbing, Vascular color changes and worsening weeping edema to bilateral lower extremities. NEUROLOGICAL: Awake and alert. Motor and sensory grossly within normal limits. Follows commands. Cognitively sharp. Moves all extremities. PSYCHIATRIC: Tearful, sad . Diagnostic Tests Laboratory Laboratory Tests Test 03/17/17 03/17/17 03/18/17 03/19/17 05:30 14:00 05:43 08:07 White Blood Count 10.5 TH/MM3 (4.0-11.0) Red Blood Count 4.69 MIL/MM3 (4.50-5.90) Hemoglobin 11.8 GM/DL (13.0-17.0) Hematocrit 37.1 % (39.0-51.0) Mean Corpuscular Volume 79.1 FL (80.0-100.0) Mean Corpuscular Hemoglobin 25.2 PG (27.0-34.0) Mean Corpuscular Hemoglobin 31.8 % Concent (32.0-36.0) Red Cell Distribution Width 18.4 % (11.6-17.2) Platelet Count 193 TH/MM3 (150-450) Mean Platelet Volume 9.5 FL (7.0-11.0) Neutrophils (%) (Auto) 58.5 % (16.0-70.0) Lymphocytes (%) (Auto) 23.8 % (9.0-44.0) Monocytes (%) (Auto) 14.4 % (0.0-8.0) Eosinophils (%) (Auto) 2.3 % (0.0-4.0) Basophils (%) (Auto) 1.0 % (0.0-2.0) Neutrophils # (Auto) 6.2 TH/MM3 (1.8-7.7) Lymphocytes # (Auto) 2.5 TH/MM3 (1.0-4.8) Monocytes # (Auto) 1.5 TH/MM3 (0-0.9) Eosinophils # (Auto) 0.2 TH/MM3 (0-0.4) Basophils # (Auto) 0.1 TH/MM3 (0-0.2) CBC Comment DIFF FINAL Differential Comment Sodium Level 128 MEQ/L 130 MEQ/L 137 MEQ/L (136-145) (136-145) (136-145) Potassium Level 5.2 MEQ/L 5.0 MEQ/L 4.2 MEQ/L (3.5-5.1) (3.5-5.1) (3.5-5.1) Chloride Level 93 MEQ/L 93 MEQ/L 98 MEQ/L (98-107) (98-107) (98-107) Carbon Dioxide Level 26.9 MEQ/L 30.3 MEQ/L 31.9 MEQ/L (21.0-32.0) (21.0-32.0) (21.0-32.0) Anion Gap 8 MEQ/L (5-15) 7 MEQ/L (5-15) 7 MEQ/L (5-15) Blood Urea Nitrogen 58 MG/DL (7-18) 39 MG/DL (7-18) 28 MG/DL (7-18) Creatinine 1.25 MG/DL 1.01 MG/DL 0.90 MG/DL (0.60-1.30) (0.60-1.30) (0.60-1.30) Estimat Glomerular Filtration 60 ML/MIN (>89) 77 ML/MIN (>89) 88 ML/MIN (>89) Rate Random Glucose 83 MG/DL 88 MG/DL 78 MG/DL (74-106) (74-106) (74-106) Calcium Level 8.3 MG/DL 8.6 MG/DL 8.8 MG/DL (8.5-10.1) (8.5-10.1) (8.5-10.1) Phosphorus Level 3.7 MG/DL 3.1 MG/DL 3.3 MG/DL (2.5-4.9) (2.5-4.9) (2.5-4.9) Albumin 3.0 GM/DL 3.3 GM/DL (3.4-5.0) (3.4-5.0) Urine Color YELLOW (YELLW/STRAW) Urine Turbidity CLEAR (CLEAR) Urine pH 6.0 (5.0-8.5) Urine Specific [place] 1.011 (1.002-1.035) Urine Protein NEG mg/dL (NEG-TRACE) Urine Glucose (UA) NEG mg/dL (NEG) Urine Ketones NEG mg/dL (NEG) Urine Occult Blood NEG (NEG) Urine Nitrite NEG (NEG) Urine Bilirubin NEG (NEG) Urine Urobilinogen LESS THAN 2.0 MG/DL (LESS THAN 2.0) Urine Leukocyte Esterase NEG (NEG) Urine RBC LESS THAN 1 /hpf (0-3) Urine WBC 1 /hpf (0-5) Microscopic Urinalysis Comment CULT NOT INDICATED Result Diagram: 03/17/17 0530 03/19/17 0807 Assessment and Plan Disease Oriented Problem List: (1) Acute on chronic congestive heart failure (2) Acute kidney injury (3) Right kidney mass (4) Cardiomyopathy (5) COPD (chronic obstructive pulmonary disease) Symptom Scale: (1) Pain 0-10 Scale: 0 Comment: Pain to bilateral lower extremities. (2) Shortness of breath 0-10 Scale: 5 Comment: Pain on exertion (3) Edema 0-10 Scale: Unable to quantify Comment: Worsening edema to bilateral lower extremities Pertinent Non-Medical Issues Psychosocial: Originally from [place]. , has no children. High school education. 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 Currently unemployed. Spiritual: Yazdanism. Legal: No advance directives completed. Ethical issues impacting care: No advance directives completed. . Important Contacts Norbert Sommer . . Prognosis Mr. Tineo is a 51-year-old male with a medical history significant for CHF, hypertension, COPD, right kidney mass and recent acute hospitalizations who presented to the ED on 03/10/17 for evaluation of shortness of breath and worsening bilateral lower extremity edema. Patient with renal mass suggestive of renal cell carcinoma, radical nephrectomy recommended but patient unable to tolerate surgical intervention secondary to clinical condition. Patient exhibiting exacerbation of chronic systolic congestive heart failure secondary to nonischemic cardiomyopathy with EF of 20-25%. Currently end-stage CHF, NYHA III, symptomatic on exertion. with tachyarrhythmias, currently wearing LifeVest. Patient's prognosis is poor, likely cardiorenal syndrome. Patient at high risk for further complications, continue decline and . . Code Status: Full Code Plan * CODE STATUS: Full code. Risks, benefits and limitations of CPR given patient' s condition has been discussed. * HEALTHCARE DECISION-MAKING: Patient participating in medical decision-making. Patient completed designation of healthcare surrogate. Elected his friend Norbert Sommer as HCS, alternate HCS friend Kale Gillespie. * GOALS OF CARE: Patient electing to continue aggressive medical management to include full code at this time. Meeting was set up for this afternoon, patient reporting not being in the right mind-set for goals of care discussion at this time. Patient scheduled to discharge home with friends this afternoon, friends reporting that they are unable to care for patient given his needs. Patient amenable to long-term placement. Case discussed with manager of case management and bedside RN. * SYMPTOMS: = Pain, lower extremity secondary to worsening edema. [place] 10/325 mg Q6h available as needed. Patient takes an average of 1 to 2 pills daily. Gabapentin 900 mg 3 times a day for chronic pain/fibromyalgia. = Shortness of breath, secondary to acute CHF exacerbation, COPD. Currently O2 via nasal cannula 2 L. = Edema, lower extremities. Secondary to CHF. Lasix 40 mg daily. * Ongoing emotional support and active listening provided. * Palliative care contact information has been provided. * Palliative care will continue to follow-up for further clarifications of goals of care, emotional support as patient's clinical course continued to evolve. . Time Spent Total Floor Time (mins): 38 (Total time to include review medical records, physical exam, conversation with patient and friends, case discussion with bedside RN and manager of case management.) >50% Counseling/Coord of Care: Yes Attestation To help prompt me to consider important information that might be impacting today's encounter and assessment, information from prior notes written by myself or my colleagues may have been "brought forward" into today's note. My signature on this note, however, is an attestation that I personally performed the exam, history, and/or decision-making noted today, and, unless otherwise indicated, the interactions with patient, family, and staff as well as the review of records all occurred today. I also attest that the listed assessment and stated plan reflect my best clinical judgment today based on the combination of historical information, prior notes, and today's exam/ interactions. When time spent is documented, it refers only to time spent today by the signer, or if indicated, combined time spent today by collaborating physician/nurse practitioner. Missy Franks Mar 19, 2017 17:10
[2017-03-19] MEDS: RESP: ALBUTEROL 2.5 MG/IPRATROPIUM 0.5 MG NEB (PRN) NEB (18:12)
--- NOTE | 2017-03-19 21:00 | HHI.PR ---
Subjective Remarks DRAFT. Pt not seen Follow-up CHF, electrolyte abnormalities, edema. Patient denies chest pain or dyspnea today. He is ambulating in the room. He has swelling that is intermittently greater on the right and left. Objective Vitals Vital Signs Date Time Temp Pulse Resp B/P Pulse Ox O2 Delivery O2 Flow Rate FiO2 03/19/17 17:59 96 21 03/19/17 16:00 97.0 97 18 109/78 96 03/19/17 13:46 18 03/19/17 12:00 97.0 103 18 126/77 94 03/19/17 09:08 98 03/19/17 08:00 100 03/19/17 08:00 97.0 94 20 126/76 100 03/19/17 04:06 98.0 94 20 128/75 98 03/19/17 04:00 Room Air 03/19/17 04:00 Room Air 03/19/17 00:00 97.3 98 20 124/85 95 03/19/17 00:00 Room Air I/O 03/18/17 03/18/17 03/18/17 03/19/17 03/19/17 03/19/17 07:00 15:00 23:00 07:00 15:00 23:00 Intake Total 100 ml 600 ml 482 ml 120 ml 480 ml Output Total 800 ml 1400 ml 1875 ml 575 ml 1000 ml Balance -700 ml -800 ml -1393 ml -455 ml -520 ml Intake Oral 100 ml 600 ml 480 ml 120 ml 480 ml IV Total 2 ml Output Urine Total 800 ml 1400 ml 1875 ml 575 ml 1000 ml # Bowel Movements 1 1 1 0 Result Diagram: 03/17/17 0530 03/19/17 0807 Imaging Last Impressions Lower Extremity Ultrasound 03/11/17 0000 Signed Impressions: Service Date/Time: February 17:21 - CONCLUSION: Normal examination. Letty Dee MD Chest X-Ray 03/10/17 1237 Signed Impressions: Service Date/Time: Friday, March 10, 2017 12:56 - CONCLUSION: 1. Congestive failure. Similar exam to prior. Josh Cadet MD Objective Remarks General: No acute distress. Sitting up in a chair. LifeVest. Heart: Regular rate and rhythm. No murmur. Lungs: Crackles noted bilaterally. Breathing is nonlabored. Abdomen: Soft, nontender, nondistended. Extremities: 2+ bilateral lower extremity edema. Psych: Alert and oriented. 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 Acute exacerbation of chronic systolic congestive heart failure: Secondary to nonischemic cardiomyopathy. Last echocardiogram showed ejection fraction 20- 25%. Continue diuresis change to po Lasix,JAEL and BB and fluid restriction. Appreciate cardiology recommendations. LifeVest in place. Lower extremity swelling is increasing. Lower extremity ultrasound negative for DVT. 2. COPD: Continue duo nebs as needed. 3. History of left ventricular thrombus: This was seen on echocardiogram in December 2016. Repeat echo in January 2017 did not show thrombus. Continue Xarelto. 4. Right renal mass: Suspicious for renal cell carcinoma. This was previously evaluated by interventional radiology, and reportedly not amenable to cryoablation. Appreciate Urology recommendations, nephrectomy after medical stabilization and clearance from Cardiology. Needs to be off anticoagulation. 5. Acute kidney injury: Secondary to hypotension, diuresis. Appreciate nephrology recommendations. Improving. 6. Hyperkalemia: Resolved. 7. Hyponatremia: Resolved. 8. DVT prophylaxis: Xarelto. 9. Appreciate palliative care recommendations. The patient is scheduled to meet with palliative care again this afternoon. Discharge Planning Cardiology has cleared the patient for discharge. We'll discharge home in stable condition. Follow-up with PCP, cardiology, urology Notified by nursing hat the patient did not have a place to go at discharge. The friend he had been living with states that he cannot go there. Hold discharge until safe disposition can be arranged. Wesly Barrios MD Mar 19, 2017 21:00
[2017-03-20] VITALS (10 sets, daily range): BP systolic 113–124; BP diastolic 62–81; PULSE 100–107; RESP 18–20; TEMP 97.1–97.9; O2SAT 94–100
[2017-03-20] MEDS: ACETAMINOPHEN/HYDROcodone 325 MG/10 MG TAB PO PRN ×4 (00:10→17:52)
[2017-03-20] MEDS: LACTOBACILLUS ACIDOPHILUS TAB PO SCH ×3 (08:19→17:51)
[2017-03-20] MEDS: DOCUSATE SODIUM 50 MG/SENNA 8.6 MG TAB PO SCH ×2 (08:19→20:49)
[2017-03-20] MEDS: CARVEDILOL 3.125 MG TAB PO SCH ×2 (08:19→20:49)
[2017-03-20] MEDS: RIVAROXABAN 20 MG TAB PO SCH (08:19)
[2017-03-20] MEDS: GABAPENTIN 300 MG CAP PO SCH ×3 (08:19→17:51)
[2017-03-20] MEDS: ALLOPURINOL 100 MG TAB PO SCH (08:19)
[2017-03-20] MEDS: FUROSEMIDE 40 MG/4 ML VIAL IV PUSH SCH (08:20)
[2017-03-20] MEDS: SODIUM CHLORIDE 0.9% FLUSH 10 ML FLUSH IV FLUSH SCH ×2 (08:20→20:51)
--- NOTE | 2017-03-20 15:31 | PD.CARD.PN ---
Subjective Subjective Remarks Pt without CV complaints Objective Medications Current Medications Medications (Trade) Dose Ordered Sig/Vishal Route Start Time Stop Time Status Last Admin (NS Flush) 2 ml UNSCH PRN IV FLUSH 03/10/17 16:00 (NS Flush) 2 ml BID IV FLUSH 03/10/17 21:00 03/20/17 08:20 (Tylenol) 650 mg Q4H PRN PO 03/10/17 16:00 03/15/17 22:43 (Zofran Inj) 4 mg Q6H PRN IVP 03/10/17 16:00 03/16/17 00:58 (Narcan Inj) 0.4 mg UNSCH PRN IV 03/10/17 16:00 (Porsha-Colace) 1 tab BID PO 03/10/17 21:00 03/20/17 08:19 (Milk Of Magnesia Liq) 30 ml Q12H PRN PO 03/10/17 16:00 (Senokot) 17.2 mg Q12H PRN PO 03/10/17 16:00 (Dulcolax Supp) 10 mg DAILY PRN RECTAL 03/10/17 16:00 (Lactulose Liq) 30 ml DAILY PRN PO 03/10/17 16:00 03/10/17 17:20 (Whitt 10-325 Mg) 1 tab Q6H PRN PO 03/10/17 20:45 03/20/17 12:46 (Lioresal) 10 mg Q8HR PRN PO 03/10/17 20:45 03/10/17 22:04 (Neurontin) 900 mg TID PO 03/11/17 09:00 03/20/17 12:45 (Lactinex) 1 tab TID PO 03/11/17 09:00 03/20/17 12:45 (Xarelto) 20 mg DAILY PO 03/11/17 09:00 03/20/17 08:19 (Prinivil) 5 mg DAILY PO 03/16/17 09:00 Hold (Zyloprim) 100 mg DAILY PO 03/17/17 09:00 03/20/17 08:19 (Coreg) 3.125 mg Q12HR PO 03/17/17 09:00 03/20/17 08:19 (Lasix Inj) 40 mg DAILY IV PUSH 03/17/17 10:30 03/20/17 08:20 Vital Signs / I&O Vital Signs Date Time Temp Pulse Resp B/P Pulse Ox O2 Delivery O2 Flow Rate FiO2 03/20/17 13:51 20 03/20/17 12:00 97.9 100 18 114/62 100 03/20/17 09:00 96 21 03/20/17 08:20 107 03/20/17 08:00 97.3 102 18 120/76 100 03/20/17 04:00 97.5 103 18 117/73 95 03/20/17 00:00 Room Air 03/20/17 00:00 97.8 107 18 124/81 96 03/19/17 21:14 110 03/19/17 20:00 Room Air 03/19/17 20:00 97.7 103 18 134/80 98 03/19/17 17:59 96 21 03/19/17 16:00 97.0 97 18 109/78 96 I/O 03/19/17 03/19/17 03/19/17 03/20/17 03/20/17 03/20/17 06:59 14:59 22:59 06:59 14:59 22:59 Intake Total 120 ml 480 ml 242 ml 120 ml Output Total 575 ml 1000 ml 600 ml 500 ml Balance -455 ml -520 ml -358 ml -380 ml Intake Oral 120 ml 480 ml 240 ml 120 ml IV Total 2 ml Output Urine Total 575 ml 1000 ml 600 ml 500 ml # Bowel Movements 1 0 0 0 Physical Exam GENERAL: Well developed, well nourished. No acute distress. HEENT: Jugular venous pressure is normal. CHEST: Lungs decreased and clear to auscultation bilaterally. Unlabored respiratory effort. CARDIAC: Regular rate and rhythm without S3, S4, or murmur. ABDOMEN: Soft, nontender, no hepatosplenomegaly. Bowel sounds present. EXTREMITIES: No clubbing, cyanosis, 1+ edema. Assessment and Plan Problem List: (1) CHF (congestive heart failure) Assessment and Plan: reasonable on present meds on BB, Arthur held for low BP (2) Cardiomyopathy Problem Qualifiers (1) CHF (congestive heart failure): Qualified Code: I50.9 - Acute on chronic congestive heart failure, unspecified congestive heart failure type Mickie Chowdhury MD Mar 20, 2017 15:31
--- NOTE | 2017-03-20 16:32 | HHI.PR ---
Subjective Remarks Follow-up heart failure. States he is breathing better. He has bilateral lower extremity swelling because she has been on his feet all day. He has been diuresing. Discharge on hold pending SNF arrangements. Discussed with RN Objective Vitals Vital Signs Date Time Temp Pulse Resp B/P Pulse Ox O2 Delivery O2 Flow Rate FiO2 03/20/17 13:51 20 03/20/17 12:00 97.9 100 18 114/62 100 03/20/17 09:00 96 21 03/20/17 08:20 107 03/20/17 08:00 97.3 102 18 120/76 100 03/20/17 04:00 97.5 103 18 117/73 95 03/20/17 00:00 Room Air 03/20/17 00:00 97.8 107 18 124/81 96 03/19/17 21:14 110 03/19/17 20:00 Room Air 03/19/17 20:00 97.7 103 18 134/80 98 03/19/17 17:59 96 21 I/O 03/19/17 03/19/17 03/19/17 03/20/17 03/20/17 03/20/17 07:00 15:00 23:00 07:00 15:00 23:00 Intake Total 120 ml 480 ml 242 ml 120 ml Output Total 575 ml 1000 ml 600 ml 500 ml Balance -455 ml -520 ml -358 ml -380 ml Intake Oral 120 ml 480 ml 240 ml 120 ml IV Total 2 ml Output Urine Total 575 ml 1000 ml 600 ml 500 ml # Bowel Movements 1 0 0 0 Result Diagram: 03/17/17 0530 03/19/17 0807 Imaging Last Impressions Lower Extremity Ultrasound 03/11/17 0000 Signed Impressions: Service Date/Time: February 17:21 - CONCLUSION: Normal examination. K. Hany Dee MD Chest X-Ray 03/10/17 1237 Signed Impressions: Service Date/Time: Friday, March 10, 2017 12:56 - CONCLUSION: 1. Congestive failure. Similar exam to prior. Josh Cadet MD Objective Remarks Well-developed, well-nourished in no distress on room air. 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 Acute exacerbation of chronic systolic congestive heart failure: Secondary to nonischemic cardiomyopathy. Last echocardiogram showed ejection fraction 20- 25%. Stable maintaining negative fluid balance. Continue diuresis change to po Lasix, JAEL and BB and fluid restriction. LifeVest in place. Lower extremity ultrasound negative for DVT. 2. COPD: Stable. Continue duo nebs as needed. 3. History of left ventricular thrombus: This was seen on echocardiogram in December 2016. Repeat echo in January 2017 did not show thrombus. Continue Xarelto. 4. Right renal mass: Suspicious for renal cell carcinoma. This was previously evaluated by interventional radiology, and reportedly not amenable to cryoablation. Appreciate Urology recommendations, nephrectomy after medical stabilization and clearance from Cardiology. Needs to be off anticoagulation. 5. Acute kidney injury: Secondary to hypotension, diuresis. Appreciate nephrology recommendations. Improving. 6. Hyperkalemia: Resolved. 7. Hyponatremia: Resolved. 8. DVT prophylaxis: Xarelto. Discharge Planning Stable for discharge when SNF arranged Wesly Barrios MD Mar 20, 2017 16:32
[2017-03-20] MEDS ORDERED: LISI-519 PO (16:36)
[2017-03-21] VITALS (10 sets, daily range): BP systolic 107–122; BP diastolic 67–75; PULSE 98–118; RESP 18–20; TEMP 97–98.5; O2SAT 95–100
[2017-03-21] MEDS: ACETAMINOPHEN/HYDROcodone 325 MG/10 MG TAB PO PRN ×5 (00:19→23:52)
[2017-03-21 07:23] LABS: BICARBONATE 33.8 MEQ/L (21.0-32.0); MAGNESIUM 2.2 MG/DL (1.5-2.5); POTASSIUM 3.8 MEQ/L (3.5-5.1)
[2017-03-21] MEDS: GABAPENTIN 300 MG CAP PO SCH ×3 (07:24→17:58)
[2017-03-21] MEDS: CARVEDILOL 3.125 MG TAB PO SCH ×2 (07:24→21:09)
[2017-03-21] MEDS: ALLOPURINOL 100 MG TAB PO SCH (07:25)
[2017-03-21] MEDS: FUROSEMIDE 40 MG/4 ML VIAL IV PUSH SCH (07:25)
[2017-03-21] MEDS: DOCUSATE SODIUM 50 MG/SENNA 8.6 MG TAB PO SCH ×2 (07:25→21:00)
[2017-03-21] MEDS: RIVAROXABAN 20 MG TAB PO SCH (07:25)
[2017-03-21] MEDS: LACTOBACILLUS ACIDOPHILUS TAB PO SCH ×3 (07:25→17:58)
[2017-03-21] MEDS: SODIUM CHLORIDE 0.9% FLUSH 10 ML FLUSH IV FLUSH SCH ×2 (07:26→21:00)
[2017-03-21] MEDS ORDERED: POTASSIUM CHLORIDE 20 MEQ CONTROLLED RELEASE TAB PO ONE (13:00)
--- NOTE | 2017-03-21 16:10 | HHI.PR ---
Subjective Remarks Follow-up heart failure. Patient wants IV access removed. Discussed with RN will start by mouth Lasix Objective Vitals Vital Signs Date Time Temp Pulse Resp B/P Pulse Ox O2 Delivery O2 Flow Rate FiO2 03/21/17 16:00 97.8 105 18 119/75 100 03/21/17 15:14 18 03/21/17 12:00 97.4 101 18 107/69 100 03/21/17 10:46 95 21 03/21/17 08:00 97.0 106 18 118/71 96 03/21/17 07:25 110 03/21/17 04:00 Room Air 03/21/17 04:00 97.4 109 20 118/73 95 03/21/17 00:00 97.3 98 20 115/72 95 03/21/17 00:00 Room Air 03/20/17 20:52 94 03/20/17 20:15 101 03/20/17 20:00 97.6 103 20 118/73 95 03/20/17 20:00 Room Air I/O 03/20/17 03/20/17 03/20/17 03/21/17 03/21/17 03/21/17 07:00 15:00 23:00 07:00 15:00 23:00 Intake Total 120 ml 950 ml 100 ml 960 ml Output Total 500 ml 4800 ml 400 ml 1025 ml 2000 ml Balance -380 ml -3850 ml -300 ml -1025 ml -1040 ml Intake Oral 120 ml 950 ml 100 ml 960 ml Output Urine Total 500 ml 4800 ml 400 ml 1025 ml 2000 ml # Bowel Movements 0 2 0 1 2 Result Diagram: 03/17/17 0530 03/21/17 0649 Objective Remarks Well-developed, well-nourished in no distress on room air. 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 Acute exacerbation of chronic systolic congestive heart failure: Secondary to nonischemic cardiomyopathy. Last echocardiogram showed ejection fraction 20- 25%. Stable maintaining negative fluid balance. Continue diuresis change to po Lasix, JAEL and BB and fluid restriction. LifeVest in place. Lower extremity ultrasound negative for DVT. 2. COPD: Stable. Continue duo nebs as needed. 3. History of left ventricular thrombus: This was seen on echocardiogram in December 2016. Repeat echo in January 2017 did not show thrombus. Continue Xarelto. 4. Right renal mass: Suspicious for renal cell carcinoma. This was previously evaluated by interventional radiology, and reportedly not amenable to cryoablation. Appreciate Urology recommendations, nephrectomy after medical stabilization and clearance from Cardiology. Needs to be off anticoagulation. 5. Acute kidney injury: Secondary to hypotension, diuresis. Appreciate nephrology recommendations. Improving. 6. Hyperkalemia: Resolved. 7. Hyponatremia: Resolved. 8. DVT prophylaxis: Xarelto. Discharge Planning Stable for discharge when SNF arranged Wesly Barrios MD Mar 21, 2017 16:10
--- NOTE | 2017-03-21 16:13 | HHI.DS ---
Discharge Summary Admission Date Mar 10, 2017 at 15:49 Discharge Date: Mar 22, 2017 Admitting Diagnosis acute on chronic CHF exacerbation (1) Acute on chronic congestive heart failure ICD Code: I50.9 Diagnosis: Principal (2) COPD (chronic obstructive pulmonary disease) ICD Code: J44.9 Diagnosis: Secondary (3) Right kidney mass ICD Code: N28.89 Diagnosis: Secondary (4) Acute kidney injury ICD Code: N17.9 Diagnosis: Principal (5) Hyponatremia ICD Code: E87.1 Diagnosis: Principal (6) Hyperkalemia ICD Code: E87.5 Diagnosis: Secondary (7) Cardiomyopathy ICD Code: I42.9 Diagnosis: Principal Procedures None Brief History - From Admission Mr. Tineo is a pleasant 51 year old male with a history of HTN, COPD, LV thrombus, right kidney mass, CHF (Echo 01/29/17 w/ EF 20- 25%) who presents to the ED on 03/10/2017 due to shortness of breath, bilateral lower extremity edema. Since December of this year, he has been having shortness of breath. His dyspnea has been progressively getting worse. He has orthopnea. He went to a PCP to establish care today. Patient was advised to come to the ED due to shortness of breath. Patient reports no chest pain, fever, chills or cough. He reports about 30 lbs weight gain in the last 2 months. He denies any changes in bowel or bladder habits. CBC/BMP: 03/17/17 0530 03/21/17 0649 Significant Findings Laboratory Tests Test 03/19/17 03/21/17 08:07 06:49 Blood Urea Nitrogen 28 MG/DL (7-18) 23 MG/DL (7-18) Estimat Glomerular Filtration 88 ML/MIN (>89) 74 ML/MIN (>89) Rate Albumin 3.3 GM/DL (3.4-5.0) Carbon Dioxide Level 33.8 MEQ/L (21.0-32.0) Anion Gap 4 MEQ/L (5-15) Random Glucose 115 MG/DL (74-106) Imaging Last Impressions Lower Extremity Ultrasound 03/11/17 0000 Signed Impressions: Service Date/Time: February 17:21 - CONCLUSION: Normal examination. Letty Dee MD Chest X-Ray 03/10/17 1237 Signed Impressions: Service Date/Time: Friday, March 10, 2017 12:56 - CONCLUSION: 1. Congestive failure. Similar exam to prior. Josh Cadet MD PE at Discharge Well-developed, well-nourished in no distress on room air. LifeVest on Regular rate and rhythm no murmur Equal breath sounds no records Bilateral lower extremity pitting edema Alert oriented nonfocal No significant change in PE from previous Hospital Course 1. Acute exacerbation of chronic systolic congestive heart failure: Secondary to nonischemic cardiomyopathy. Last echocardiogram showed ejection fraction 20- 25%. Stable maintaining negative fluid balance. Continue diuresis po Lasix, JAEL (currently on hold secondary to low normal BP) and BB and fluid restriction. LifeVest in place. Lower extremity ultrasound negative for DVT. 2. COPD: Stable. Continue duo nebs as needed. 3. History of left ventricular thrombus: This was seen on echocardiogram in December 2016. Repeat echo in January 2017 did not show thrombus. Continue Xarelto. 4. Right renal mass: Suspicious for renal cell carcinoma. This was previously evaluated by interventional radiology, and reportedly not amenable to cryoablation. Appreciate Urology recommendations, nephrectomy after medical stabilization and clearance from Cardiology. Needs to be off anticoagulation. 5. Acute kidney injury: Secondary to hypotension, diuresis. Appreciate nephrology recommendations. Improving. 6. Hyperkalemia: Resolved. 7. Hyponatremia: Resolved. 8. DVT prophylaxis: Xarelto. Pt Condition on Discharge: Stable Discharge Disposition: Disch w/ Home Health Serv Discharge Time: > 30 minutes Discharge Instructions DIET: Follow Instructions for: Heart Healthy Diet Activities you can perform: Regular-No Restrictions Follow up Referrals: Cardiology - 1 Week with Yusuf Myles MD PCP Follow-up - 1 Week Urology - 1 Week with Nikolay Lopez MD New Medications: Defibrillator Jacket (Defibrillator Jacket) 1 Ea Device 1 EA EXTERNAL ONCE Energy = 150 Joules; VT Threshold = 150 BPM; VF Threshold = 200 BPM Use up to 90 days only cardiomyopathy #1 Ref 0 EA Allopurinol (Zyloprim) 100 Mg Tab 100 MG PO DAILY Gout #30 Ref 0 TAB Carvedilol (Coreg) 3.125 Mg Tab 3.125 MG PO Q12HR CHF #60 Ref 0 TAB Hydrocodone-Acetaminophen (Hydrocodone-Acetaminophen) 10-325 mg Tab 1 TAB PO Q6H PRN PAIN SCALE 5 TO 10 #15 Ref 0 TAB Lisinopril (Lisinopril) 5 Mg Tab 5 MG PO DAILY Prevent Heart Failure #30 TAB Continued Medications: Albuterol Neb (Albuterol Neb) 2.5 Mg/3 Ml Neb 2.5 MG NEB Q4HR NEB While awake Breathing Treatment #60 Ref 0 NEBULE Baclofen (Baclofen) 10 Mg Tab 10 MG PO Q8HR PRN MUSCLE SPASM Ref 0 TAB Furosemide (Lasix) 40 Mg Tab 40 MG PO BID #60 Ref 0 TAB Gabapentin (Neurontin) 300 Mg Cap 900 MG PO TID #30 CAP Lactobacillus Acidophilus (Acidophilus/l-Sporogenes) 1 Tab Tab 1 TAB PO TID #60 TAB Rivaroxaban (Xarelto) 20 Mg Tab 20 MG PO DAILY cardiac thrombus #31 Ref 6 TAB Discontinued Medications: Allopurinol (Zyloprim) 300 Mg Tab 300 MG PO DAILY gout #30 TAB Spironolactone (Aldactone) 25 Mg Tab 25 MG PO DAILY chf #30 TAB Additional Information I spent 35 minutes [id number] with the patient or on the morelos discussing the patient's disposition, prognosis, and plan of care with patient's caregivers. Over half the time spent was devoted to counseling the patient regarding placement in coordinating care with caregivers and case management. Wesly Barrios MD Mar 21, 2017 16:13
[2017-03-21] MEDS: FUROSEMIDE 40 MG TAB PO SCH (18:01)
[2017-03-22] VITALS (7 sets, daily range): BP systolic 99–120; BP diastolic 58–82; PULSE 96–110; RESP 16–18; TEMP 97.3–98.1; O2SAT 95–99
[2017-03-22] MEDS: ACETAMINOPHEN/HYDROcodone 325 MG/10 MG TAB PO PRN ×3 (05:55→18:45)
[2017-03-22 07:22] LABS: BICARBONATE 33.8 MEQ/L (21.0-32.0); MAGNESIUM 2.2 MG/DL (1.5-2.5); POTASSIUM 4.1 MEQ/L (3.5-5.1)
[2017-03-22] MEDS: SODIUM CHLORIDE 0.9% FLUSH 10 ML FLUSH IV FLUSH SCH (09:00)
[2017-03-22] MEDS: DOCUSATE SODIUM 50 MG/SENNA 8.6 MG TAB PO SCH (09:00)
[2017-03-22] MEDS: RIVAROXABAN 20 MG TAB PO SCH (09:25)
[2017-03-22] MEDS: FUROSEMIDE 40 MG TAB PO SCH ×2 (09:25→16:53)
[2017-03-22] MEDS: CARVEDILOL 3.125 MG TAB PO SCH (09:25)
[2017-03-22] MEDS: ALLOPURINOL 100 MG TAB PO SCH (09:25)
[2017-03-22] MEDS: LACTOBACILLUS ACIDOPHILUS TAB PO SCH ×3 (09:25→16:53)
[2017-03-22] MEDS: GABAPENTIN 300 MG CAP PO SCH ×3 (09:25→16:54)
--- NOTE | 2017-03-22 10:30 | HHI.PR ---
Subjective Remarks Follow-up heart failure. He is doing okay ambulating hallway on room air. Discussed with PT, RN and case management, he is stable for discharge. Patient has no accepting facility since patient is high functioning. Objective Vitals Vital Signs Date Time Temp Pulse Resp B/P Pulse Ox O2 Delivery O2 Flow Rate FiO2 03/22/17 09:00 Room Air 03/22/17 08:00 110 03/22/17 08:00 98.1 105 16 120/64 96 03/22/17 04:00 97.3 101 18 120/82 98 03/22/17 04:00 Room Air 03/22/17 00:00 Room Air 03/22/17 00:00 97.4 96 18 99/58 95 03/21/17 20:41 118 03/21/17 20:00 Room Air 03/21/17 20:00 98.5 103 18 122/67 97 03/21/17 18:47 100 03/21/17 16:00 97.8 105 18 119/75 100 03/21/17 15:14 18 03/21/17 12:00 97.4 101 18 107/69 100 03/21/17 10:46 95 21 I/O 03/21/17 03/21/17 03/21/17 03/22/17 03/22/17 03/22/17 07:00 15:00 23:00 07:00 15:00 23:00 Intake Total 960 ml 360 ml 100 ml Output Total 1025 ml 2000 ml Balance -1025 ml -1040 ml 360 ml 100 ml Intake Oral 960 ml 360 ml 100 ml Output Urine Total 1025 ml 2000 ml # Voids 4 3 # Bowel Movements 1 2 2 1 Result Diagram: 03/22/17 0623 Objective Remarks Well-developed, well-nourished in no distress on room air. LifeVest on Regular rate and rhythm no murmur Equal breath sounds no records Bilateral lower extremity pitting edema Alert oriented nonfocal No significant change in PE from previous Procedures None A/P Problem List: (1) Acute on chronic congestive heart failure ICD Code: I50.9 Status: Acute (2) COPD (chronic obstructive pulmonary disease) ICD Code: J44.9 Status: Chronic (3) Right kidney mass ICD Code: N28.89 Status: Chronic (4) Acute kidney injury ICD Code: N17.9 Status: Resolved (5) Hyponatremia ICD Code: E87.1 Status: Acute (6) Hyperkalemia ICD Code: E87.5 Status: Acute (7) Cardiomyopathy ICD Code: I42.9 Status: Acute Assessment and Plan 1. Acute exacerbation of chronic systolic congestive heart failure: Secondary to nonischemic cardiomyopathy. Last echocardiogram showed ejection fraction 20- 25%. Stable maintaining negative fluid balance. Continue diuresis po Lasix, JAEL (currently on hold secondary to low normal BP) and BB and fluid restriction. LifeVest in place. Lower extremity ultrasound negative for DVT. 2. COPD: Stable. Continue duo nebs as needed. 3. History of left ventricular thrombus: This was seen on echocardiogram in December 2016. Repeat echo in January 2017 did not show thrombus. Continue Xarelto. 4. Right renal mass: Suspicious for renal cell carcinoma. This was previously evaluated by interventional radiology, and reportedly not amenable to cryoablation. Appreciate Urology recommendations, nephrectomy after medical stabilization and clearance from Cardiology. Needs to be off anticoagulation. 5. Acute kidney injury: Secondary to hypotension, diuresis. Appreciate nephrology recommendations. Improving. 6. Hyperkalemia: Resolved. 7. Hyponatremia: Resolved. 8. DVT prophylaxis: Xarelto. Discharge Planning Stable for discharge when SNF arranged or [facility] Wesly Barrios MD Mar 22, 2017 10:30
--- NOTE | 2017-03-22 16:01 | HHI.HCPN ---
Reason for visit a. To assist with evaluation and management of symptoms including: Shortness of breath, edema and debility. b. To assist medical decision maker(s) with: better understanding of current medical conditions; weighing benefits/burdens of medical treatment options; making medical treatment decisions. . Subjective/Interval History Mr. Tineo is a 51-year-old male with a medical history significant for systolic heart failure, nonischemic cardiomyopathy with EF of 20-25%, and right renal mass measuring 5.9 x 4.4 cm, highly suspicious for renal carcinoma. Palliative care consulted for further clarifications of goals of care and to assist with advance directives. Patient reports feeling better today than over the weekend, ambulating around the room without assistive device. Patient was seen in his room, he was sitting in bed in no acute distress. Endorsing dyspnea on exertion, bilateral lower extremities edema and pain. Patient afebrile, stable hemodynamically, tolerating room air with oxygen saturation in the mid to high 90s. No new imaging for review. Lengthy bedside conversation with patient. Reviewed end-stage heart failure, nonischemic cardiomyopathy, renal mass likely representing renal carcinoma. Discussed that CHF is progressive and reviewed current medical management. Discussed continuation of aggressive management to include hospitalizations, life vest and full code vs comfort-directed care with hospice. Introduced hospice philosophy and benefits. Reviewed CHF hospice eligible in the setting of EF of 20%, more than 3 acute hospitalizations secondary to CHF exacerbation within the past year, recurrent heart failure or angina at rest, activity discomfort. Patient tells me that he still has some "life left on him", he wishes to continue with conservative management to include hospitalizations if medically necessary. Patient verbalized not being ready for comfort care with hospice at this time. Discussed CPR, ACLS drugs, intubation and mechanical ventilation in the setting of advance heart failure and current life vest in place. Patient verbalized wishing to be "no code" but does not feel ready to discontinue life vest. Discussed with patient that he is currently full code, patient wishing to discuss further with friend Norbert before changing code status. Patient is to remain full code at this time. Reviewed with patient that a completed community DNR is recommended once discharge from the hospital if he is to decline CPR, intubation and mechanical ventilation. Patient verbalized understanding. Encourage patient to continue goals of care conversation with his friend Norbert/HCS. . Family/friend interactions No family at bedside. . Advance Directives Living Will: Never completed Health Care Surrogate: Copy in medical record Durable Power of Hat And Cap Sewer: Never completed Advance Directive Specifics Date completed: 03/19/17. . Health Care Surrogate(s): Patient designated his friend Norbert Sommer as HCS, alternate surrogate friend Kale Gillespie. . Documented care wishes: No living will completed. . Significant change in goals: Full code. Continue current aggressive management. . Objective Vital Signs Date Time Temp Pulse Resp B/P Pulse Ox O2 Delivery O2 Flow Rate FiO2 03/22/17 12:00 97.8 102 17 102/64 97 03/22/17 11:51 97 21 03/22/17 09:00 Room Air 03/22/17 08:00 110 03/22/17 08:00 98.1 105 16 120/64 96 03/22/17 04:00 97.3 101 18 120/82 98 03/22/17 04:00 Room Air 03/22/17 00:00 Room Air 03/22/17 00:00 97.4 96 18 99/58 95 03/21/17 20:41 118 03/21/17 20:00 Room Air 03/21/17 20:00 98.5 103 18 122/67 97 03/21/17 18:47 100 03/21/17 16:00 97.8 105 18 119/75 100 Intake & Output 03/22/17 03/22/17 07:00 19:00 Intake Total 460 ml Balance 460 ml Intake Oral 460 ml # Voids 7 # Bowel Movements 3 Physical Exam CONSTITUTIONAL/GENERAL: This is an adequately nourished patient in no apparent distress. TUBES/LINES/DRAINS: PIV's, life vest. SKIN: No jaundice, rashes, or lesions. Ecchymoses on upper extremities. Skin temperature appropriate. Not diaphoretic. HEAD: Atraumatic. Normocephalic. EYES: Pupils equal and round and reactive. Extraocular motions intact. No scleral icterus. No injection or drainage. ENT: Hearing grossly normal. Nose without bleeding or purulent drainage. Moist oral mucosa, edentulous NECK: Trachea midline. Supple, nontender. CARDIOVASCULAR: Regular rate and rhythm. Life vest in place. Vascular color changes and weeping edema to bilateral lower extremities. RESPIRATORY/CHEST: Symmetric, increased work of breathing at times. Faint crackles bilaterally. Dyspnea on exertion. GASTROINTESTINAL: Abdomen round, large, mildly tender. No guarding. Bowel sounds present. MUSCULOSKELETAL:Vascular color changes with edema to bilateral lower extremities. NEUROLOGICAL: Awake and alert. Motor and sensory grossly within normal limits. Follows commands. Cognitively sharp. Moves all extremities. PSYCHIATRIC: Calm. Pleasant. . Diagnostic Tests Laboratory Laboratory Tests Test 03/21/17 03/22/17 06:49 06:23 Sodium Level 136 MEQ/L 136 MEQ/L (136-145) (136-145) Potassium Level 3.8 MEQ/L 4.1 MEQ/L (3.5-5.1) (3.5-5.1) Chloride Level 98 MEQ/L 100 MEQ/L (98-107) (98-107) Carbon Dioxide Level 33.8 MEQ/L 33.8 MEQ/L (21.0-32.0) (21.0-32.0) Anion Gap 4 MEQ/L (5-15) 2 MEQ/L (5-15) Blood Urea Nitrogen 23 MG/DL (7-18) 24 MG/DL (7-18) Creatinine 1.05 MG/DL 0.93 MG/DL (0.60-1.30) (0.60-1.30) Estimat Glomerular Filtration 74 ML/MIN (>89) 85 ML/MIN (>89) Rate Random Glucose 115 MG/DL 100 MG/DL (74-106) (74-106) Calcium Level 8.6 MG/DL 8.6 MG/DL (8.5-10.1) (8.5-10.1) Magnesium Level 2.2 MG/DL 2.2 MG/DL (1.5-2.5) (1.5-2.5) Result Diagram: 03/22/17 0623 Assessment and Plan Disease Oriented Problem List: (1) Acute on chronic congestive heart failure (2) Acute kidney injury (3) Right kidney mass (4) Cardiomyopathy (5) COPD (chronic obstructive pulmonary disease) Symptom Scale: (1) Pain 0-10 Scale: 0 Comment: Pain to bilateral lower extremities. (2) Shortness of breath 0-10 Scale: 0 Comment: Pain on exertion (3) Edema 0-10 Scale: Unable to quantify Comment: Worsening edema to bilateral lower extremities Pertinent Non-Medical Issues Psychosocial: Originally from [place]. , has no children. High school education. 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 Currently unemployed. Spiritual: Taoism. Legal: No advance directives completed. Ethical issues impacting care: No advance directives completed. . Important Contacts Norbert Sommer . . Prognosis Mr. Tineo is a 51-year-old male with a medical history significant for CHF, hypertension, COPD, right kidney mass and recent acute hospitalizations who presented to the ED on 03/10/17 for evaluation of shortness of breath and worsening bilateral lower extremity edema. Patient with renal mass suggestive of renal cell carcinoma, radical nephrectomy recommended but patient unable to tolerate surgical intervention secondary to clinical condition. Patient exhibiting exacerbation of chronic systolic congestive heart failure secondary to nonischemic cardiomyopathy with EF of 20-25%. Currently end-stage CHF, NYHA III, symptomatic on exertion. with tachyarrhythmias, currently wearing LifeVest. Patient's prognosis is poor, likely cardiorenal syndrome. Patient at high risk for further complications, continue decline and . . Code Status: Full Code Plan * CODE STATUS: Full code. Discussed CPR, ACLS drugs, intubation and mechanical ventilation in the setting of advance heart failure and life vest in place. Patient verbalized wishing to be "no code" but would like to discuss it further with friend Norbert before making a final decision. Patient is to remain full code at this time. Patient wishing to continue with life vest at this time. Reviewed with patient that a completed community DNR is recommended once discharge from the hospital if he is to decline CPR, intubation and mechanical ventilation. * HEALTHCARE DECISION-MAKING: Patient participating in medical decision-making. Patient completed designation of healthcare surrogate. Elected his friend Norbert Sommer as HCS, alternate HCS friend Kale Gillespie. * GOALS OF CARE: Patient electing to continue aggressive medical management to include full code at this time. * Discussed continuation of aggressive management to include hospitalizations, life vest and full code vs comfort-directed care with hospice. Introduced hospice philosophy and benefits. Reviewed CHF hospice eligible in the setting of EF of 20%, more than 3 acute hospitalizations secondary to CHF exacerbation within the past year, recurrent heart failure, activity discomfort. Patient tells me that he still has some "life left on [him]", he wishes to continue with current aggressive management to include hospitalizations if medically necessary. Patient verbalized not being ready for comfort care with hospice at this time but is receptive to hospice should his clinical condition worsen, increased symptoms burden or continue decline. Encouraged patient to continue goals of care conversation with his friend Norbert/ALEXANDER. * SYMPTOMS: = Pain, lower extremity secondary to worsening edema. Acushnet 10/325 mg Q6h available as needed. Patient takes an average of 1 to 2 pills daily. Gabapentin 900 mg 3 times a day for chronic pain/fibromyalgia. = Shortness of breath, secondary to acute CHF exacerbation, COPD. O2 as needed. = Edema, lower extremities. Secondary to CHF. Lasix 40 mg daily. * Ongoing emotional support and active listening provided. * Palliative care contact information has been provided. * Palliative care will continue to follow-up for further clarifications of goals of care, emotional support as patient's clinical course continued to evolve. . Time Spent Total Floor Time (mins): 48 (Total time to include review of medical records, physical exam, goals of care conversation with patient.) >50% Counseling/Coord of Care: Yes Attestation To help prompt me to consider important information that might be impacting today's encounter and assessment, information from prior notes written by myself or my colleagues may have been "brought forward" into today's note. My signature on this note, however, is an attestation that I personally performed the exam, history, and/or decision-making noted today, and, unless otherwise indicated, the interactions with patient, family, and staff as well as the review of records all occurred today. I also attest that the listed assessment and stated plan reflect my best clinical judgment today based on the combination of historical information, prior notes, and today's exam/ interactions. When time spent is documented, it refers only to time spent today by the signer, or if indicated, combined time spent today by collaborating physician/nurse practitioner. Missy Franks Mar 22, 2017 16:01
== END 2017-03-22 19:10 | disposition home health service (06) | DRG 291 ==
LOC: NEPC 12:21 → NEDA 15:49 → N04A 19:15 → N04B 03-16 18:45
PROVIDERS: ADMIT Internal Medicine; ATTEND Internal Medicine
DX: I13.0 Hypertensive heart and chronic kidney disease with heart failure and stage 1 through stage 4 chronic kidney disease, or unspecified chronic kidney disease (principal); N17.0 Acute kidney failure with tubular necrosis; I47.2 Ventricular tachycardia; I95.9 Hypotension, unspecified; E87.1 Hypo-osmolality and hyponatremia; I42.9 Cardiomyopathy, unspecified; E87.5 Hyperkalemia; I50.23 Acute on chronic systolic (congestive) heart failure; J44.9 Chronic obstructive pulmonary disease, unspecified; G89.4 Chronic pain syndrome; M10.9 Gout, unspecified; M79.7 Fibromyalgia; K21.9 Gastro-esophageal reflux disease without esophagitis; I25.10 Atherosclerotic heart disease of native coronary artery without angina pectoris; I34.0 Nonrheumatic mitral (valve) insufficiency; I48.91 Unspecified atrial fibrillation; M19.90 Unspecified osteoarthritis, unspecified site; G47.30 Sleep apnea, unspecified; F41.9 Anxiety disorder, unspecified; F32.9 Major depressive disorder, single episode, unspecified; Z79.01 Long term (current) use of anticoagulants; Z88.1 Allergy status to other antibiotic agents; Z88.6 Allergy status to analgesic agent; Z96.652 Presence of left artificial knee joint; I25.119 Atherosclerotic heart disease of native coronary artery with unspecified angina pectoris; N18.9 Chronic kidney disease, unspecified; Z87.891 Personal history of nicotine dependence; I45.10 Unspecified right bundle-branch block; Z59.0 Homelessness; D49.511 Neoplasm of unspecified behavior of right kidney
CPT/HCPCS: 71020; 76937; 80048; 80053; 80069; 81001; 82040; 82550; 82552; 83735; 83880; 84100; 84484; 85025; 85610; 85730; 93005; 93308; 93971; 94620; 94640; 94664; J1940; J2405; J7030; J7613

== ENCOUNTER 2017-04-05 01:53 | Emergency (ER) | payer OTHER ==
[~2017-04-05] VITALS: Ht 167.6 cm; Wt 90.0 kg
[~2017-04-05 01:53] MED LIST changes: +ALLO100 PO; -ALLO300 PO; +CARV3.125 PO; +DEFIB EXTERNAL; +HYDR-3583 PO; +LISI-519 PO; -SPIR25 PO
[2017-04-05 01:56] VITALS: BP 121/79; PULSE 125; RESP 28; TEMP 97.6; O2SAT 99
[2017-04-05] MEDS ORDERED: SODIUM CHLORIDE 0.9% FLUSH 10 ML FLUSH IVF PRN (02:30)
[2017-04-05 02:34] VITALS: RESP 13; O2SAT 98
[2017-04-05 03:02] LABS: INTERNATIONAL NORMALIZED RATIO 1.1 RATIO; PROTHROMBIN TIME - PATIENT 12.1 SEC (9.8-11.6)
[2017-04-05 03:04] LABS: AUTOMATED NEUTROPHIL # 5.2 TH/MM3 (1.8-7.7); BASOPHIL # 0.1 TH/MM3 (0-0.2); EOSINOPHIL # 0.4 TH/MM3 (0-0.4); EOSINOPHIL % 4.7 % (0.0-4.0); HEMATOCRIT 33.7 % (39.0-51.0); HEMO FLAGS DIFF FINAL; LYMPHOCYTE # 2.5 TH/MM3 (1.0-4.8); MEAN CELL VOLUME 77.6 FL (80.0-100.0); MEAN CORPUSCULAR HEMOGLOBIN 25.9 PG (27.0-34.0); MEAN CORPUSCULAR HGB CONC 33.3 % (32.0-36.0); MONO % 11.5 % (0.0-8.0); NEUT % 55.8 % (16.0-70.0); PLATELET COUNT 268 TH/MM3 (150-450); RED BLOOD COUNT 4.34 MIL/MM3 (4.50-5.90); RED CELL DISTRIBUTION WIDTH 20.2 % (11.6-17.2); WHITE BLOOD COUNT 9.2 TH/MM3 (4.0-11.0)
--- NOTE | 2017-04-05 03:06 | RADRPT ---
EXAM DATE/TIME: 04/05/2017 02:34 [facility] COMPARISON: CHEST SINGLE AP, February 26, 2017, 2:37. INDICATIONS : Shortness of breath MEDICAL HISTORY : Gastroesophageal reflux disease. Hypertension Congestive heart failure. COPD, Fibromyalgia, Renal Failure, Shingles SURGICAL HISTORY : None. ENCOUNTER: Initial ACUITY: 1 day PAIN SCORE: 6/10 LOCATION: Bilateral chest FINDINGS: A single view of the chest demonstrates the lungs to be symmetrically aerated without evidence of mas s, infiltrate or effusion. The cardiomediastinal contours demonstrate cardiomegaly. Osseous structu res are intact. CONCLUSION: No acute disease. Jay Simeon MD on April 05, 2017 at 3:04 Board Certified Radiologist. This report was verified electronically.
[2017-04-05 03:19] LABS: BICARBONATE 26.7 MEQ/L (21.0-32.0); POTASSIUM 3.7 MEQ/L (3.5-5.1)
[2017-04-05 03:42] VITALS: PULSE 105; O2SAT 98
--- NOTE | 2017-04-05 03:46 | PD ---
HPI Chief Complaint: Respiratory Distress Time Seen by Provider: 02:15 Travel History International Travel<30 days: No Contact w/Intl Traveler<30days: No Traveled to known affect area: No History of Present Illness HPI Patient is a 51-year-old male with history of nonischemic cardiomyopathy with EF 20-25% who presents emergency department with complaint of shortness of breath. Patient states that he has been dyspneic since November. This has gradually been getting worse. States that he does not have any energy, exercise capacity. None of his symptoms are acutely worse today than they have been for the last several months, but patient states "I just can't take it anymore" prompting his ER visit today. He has not had any sort of chest pain. He notes no peripheral edema. A mayers has been compliant with his home medications. He is to be wearing a LifeVest, however he does not have this on at this time. When asked why he is not wearing his LifeVest, patient states "just because I'm not". PFSH Past Medical History Hx Anticoagulant Therapy: Yes (XARELTO) Arthritis: Yes Asthma: Yes Autoimmune Disease: No Blood Disorders: No Anxiety: Yes Depression: Yes Heart Rhythm Problems: Yes (CHF) Cancer: Yes (right renal mass) Cardiovascular Problems: Yes High Cholesterol: No Chemotherapy: No Chest Pain: No Congestive Heart Failure: Yes COPD: Yes Diabetes: No Diminished Hearing: No Endocrine: No Fibromyalgia: Yes Gastrointestinal Disorders: Yes GERD: Yes Genitourinary: Yes Hiatal Hernia: No Hypertension: Yes Immune Disorder: No Musculoskeletal: Yes Neurologic: Yes Psychiatric: Yes Reproductive: No Respiratory: Yes (COPD) Integumentary: Yes (reoccuring shingles) Immunizations Current: Yes Migraines: Yes Radiation Therapy: No Renal Failure: Yes Sleep Apnea: Yes Thyroid Disease: No Tetanus Vaccination: < 5 Years Past Surgical History Abdominal Surgery: No Cardiac Surgery: No Ear Surgery: No Endocrine Surgery: No Eye Surgery: No Genitourinary Surgery: No Gynecologic Surgery: No Joint Replacement: Yes (LEFT KNEE X2) Thoracic Surgery: No Other Surgery: Yes Social History Alcohol Use: No Tobacco Use: Yes (1/2 PACK/DAY) Substance Use: No Allergies-Medications (Allergen,Severity, Reaction): Coded Allergies: Ibuprofen (Verified Allergy, Severe, Nausea/Vomiting, 04/05/17) Levaquin (Verified Allergy, Mild, EDEMA, 04/05/17) Ultram (Verified Allergy, Mild, ITCHING, 04/05/17) Reported Meds & Prescriptions Reported Meds & Active Scripts Active Lisinopril 5 Mg Tab 5 Mg PO DAILY Hydrocodone-Acetaminophen 10-325 mg Tab 1 Tab PO Q6H PRN Coreg (Carvedilol) 3.125 Mg Tab 3.125 Mg PO Q12HR Zyloprim (Allopurinol) 100 Mg Tab 100 Mg PO DAILY Defibrillator Jacket (Device) 1 Ea Device 1 Ea EXTERNAL ONCE Energy = 150 Joules; VT Threshold = 150 BPM; VF Threshold = 200 BPM Use up to 90 days only Albuterol Neb (Albuterol Sulfate) 2.5 Mg/3 Ml Neb 2.5 Mg NEB Q4HR NEB While awake Lasix (Furosemide) 40 Mg Tab 40 Mg PO BID Acidophilus/l-Sporogenes (Lactobacillus Acidophilus) 1 Tab Tab 1 Tab PO TID Neurontin (Gabapentin) 300 Mg Cap 900 Mg PO TID Xarelto (Rivaroxaban) 20 Mg Tab 20 Mg PO DAILY Reported Baclofen 10 Mg Tab 10 Mg PO Q8HR PRN Review of Systems Except as stated in HPI: all other systems reviewed are Neg Physical Exam Narrative GENERAL: Middle-aged male appearing older than stated age in no acute distress SKIN: Focused skin assessment warm/dry. HEAD: Normocephalic. EYES: No scleral icterus. No injection or drainage. ENT: Mucous membranes pink and moist. NECK: Supple without JVD CARDIOVASCULAR: Initially tachycardic with heart rate in the 120s, normalized when resting in bed in, regular rhythm. No murmur appreciated. RESPIRATORY: No accessory muscle use. Clear to auscultation. Breath sounds equal bilaterally. Documented is tachypneic in triage, but normalizes status patient rest in bed. GASTROINTESTINAL: Abdomen soft, non-tender, nondistended. MUSCULOSKELETAL: No obvious deformities. No edema. NEUROLOGICAL: Awake and alert. Motor grossly within normal limits. Normal speech. PSYCHIATRIC: Cantankerous, poor insight and judgment Data Data Last Documented VS Vital Signs Date Time Temp Pulse Resp B/P Pulse Ox O2 Delivery O2 Flow Rate FiO2 04/05/17 02:34 13 98 Room Air 04/05/17 01:56 97.6 125 121/79 Orders Complete Blood Count With Diff (04/05/17 02:20) Basic Metabolic Panel (Bmp) (04/05/17 02:20) B-Type Natriuretic Peptide (04/05/17 02:20) Act Partial Throm Time (Ptt) (04/05/17 02:20) Prothrombin Time / Inr (Pt) (04/05/17 02:20) Troponin I (04/05/17 02:20) Iv Access Insert/Monitor (04/05/17 02:20) Electrocardiogram (04/05/17 02:20) Ecg Monitoring (04/05/17 02:20) Oximetry (04/05/17 02:20) Chest, Single Ap (04/05/17 02:20) Sodium Chloride 0.9% Flush (Ns Flush) (04/05/17 02:30) Labs Laboratory Tests Test 04/05/17 02:42 White Blood Count 9.2 TH/MM3 Red Blood Count 4.34 MIL/MM3 Hemoglobin 11.2 GM/DL Hematocrit 33.7 % Mean Corpuscular Volume 77.6 FL Mean Corpuscular Hemoglobin 25.9 PG Mean Corpuscular Hemoglobin 33.3 % Concent Red Cell Distribution Width 20.2 % Platelet Count 268 TH/MM3 Mean Platelet Volume 9.8 FL Neutrophils (%) (Auto) 55.8 % Lymphocytes (%) (Auto) 27.0 % Monocytes (%) (Auto) 11.5 % Eosinophils (%) (Auto) 4.7 % Basophils (%) (Auto) 1.0 % Neutrophils # (Auto) 5.2 TH/MM3 Lymphocytes # (Auto) 2.5 TH/MM3 Monocytes # (Auto) 1.1 TH/MM3 Eosinophils # (Auto) 0.4 TH/MM3 Basophils # (Auto) 0.1 TH/MM3 CBC Comment DIFF FINAL Differential Comment Prothrombin Time 12.1 SEC Prothromb Time International 1.1 RATIO Ratio Activated Partial 25.0 SEC Thromboplast Time Sodium Level 139 MEQ/L Potassium Level 3.7 MEQ/L Chloride Level 105 MEQ/L Carbon Dioxide Level 26.7 MEQ/L Anion Gap 7 MEQ/L Blood Urea Nitrogen 18 MG/DL Creatinine 0.99 MG/DL Estimat Glomerular Filtration 79 ML/MIN Rate Random Glucose 86 MG/DL Calcium Level 8.0 MG/DL Troponin I 0.02 NG/ML B-Type Natriuretic Peptide 1255 PG/ML MDM Medical Decision Making Medical Screen Exam Complete: Yes Emergency Medical Condition: Yes Medical Record Reviewed: Yes Differential Diagnosis 51-year-old male with history of low EF nonischemic CHF here with dyspnea since November 2016. Differential includes CHF, acute on chronic, pulmonary edema, ACS, arrhythmia, symptomatic anemia, electrolyte abnormality and less likely PE. Narrative Course Patient placed on monitor, IV established and blood obtained. A twelve-lead EKG shows sinus rhythm. Patient has T-wave inversions in the lateral leads 1, aVL, V5 and V6. These are similar to patient's previous EKG. Left axis deviation. Portal chest x-ray obtained that by my read shows no acute abnormalities, specifically no evidence of pulmonary edema, pleural effusion. CBC, BMP, BNP, troponin, coags notable for BNP 1255. This is down from patient' s most recent value of 2296. Again when he first walked into triage patient was slightly tachycardic and tachypneic but this normalized as soon as he rests. None of his symptoms seemed to be acutely worse since November. He is quite cantankerous, and clearly noncompliant, not wearing his LifeVest. The gravity of this decision was expressed to patient, but I do not think he understands. Regardless, he does not appear to be any cute exacerbation of his underlying heart failure, he does not warrant any admission. I suspect that the symptoms are all chronic, and likely to gradually worsen as he ages in his heart failure worsens. Patient was encouraged to follow-up with his delivery sales worker, and encouraged to wear his LifeVest. Diagnosis Primary Impression: Nonischemic cardiomyopathy Additional Impressions: Dyspnea on exertion Fatigue Qualified Code: R53.83 - Fatigue, unspecified type Noncompliance Referrals: Packaging Design Engineer call for appointment Primary Care Physician call for appointment Additional Instructions: Your EKG, chest x-ray and blood work today were normal. Due to chronic shortness of breath and fatigue is due to heart failure. There is no evidence of acute exacerbation or worsening of your heart failure today. Continue home medications as prescribed. Where your LifeVest! This will shock you for fatal arrhythmias. Follow up with delivery sales worker and primary care provider as discussed. Med/Other Pt SpecificInfo: No Change to Meds Disposition: 01 DISCHARGE HOME Condition: Stable Gloria Prieto MD Apr 05, 2017 03:46
--- NOTE | 2017-04-05 15:57 | EKG ---
Date Performed: 04/05/2017 Time Performed: 02:34:55 PTAGE: 51 years EKG: Sinus rhythm POSSIBLE LEFT ATRIAL ENLARGEMENT MARKED LEFT AXIS DEVIATION INCOMPLETE RIGHT BUNDLE BRANCH BLOCK ST DEVIATION AND MODERATE T-WAVE ABNORMALITY, CONSIDER LATERAL ISCHEMIA LEFT ANTERIOR FASCICULAR BLOCK L EFT VENTRICULAR HYPERTROPHY ABNORMAL ECG PREVIOUS TRACING : 03/12/2017 15.34 DOCTOR: Marco A Holland Interpretating Date/Time 04/05/2017 15:56:47
== END 2017-04-05 04:00 | disposition home or self-care (01) ==
LOC: NEPE 01:53
DX: I42.9 Cardiomyopathy, unspecified (principal); R53.83 Other fatigue; R06.02 Shortness of breath; I50.9 Heart failure, unspecified; I10 Essential (primary) hypertension; J44.9 Chronic obstructive pulmonary disease, unspecified; F41.9 Anxiety disorder, unspecified; Z85.53 Personal history of malignant neoplasm of renal pelvis; Z79.01 Long term (current) use of anticoagulants
CPT/HCPCS: 71010; 80048; 83880; 84484; 85025; 85610; 85730; 93005; 99285

== ENCOUNTER 2017-05-11 11:30 | Inpatient (IN) | payer OTHER ==
[~2017-05-11] VITALS: Ht 185.4 cm; Wt 78.5 kg
[~2017-05-11 11:30] MED LIST changes: +BUTA1TAB30 PO; -CARV3.125 PO; +CARV6.252 PO; -DEFIB EXTERNAL; +DOCU100C PO; +METR500T10 PO; +NYST15T TOPICAL; +SPIR25TA PO
[2017-05-18] VITALS (8 sets, daily range): BP systolic 128; BP diastolic 86; PULSE 68–97; RESP 12; TEMP 98.3; O2SAT 95–97
[2017-05-18] MEDS ORDERED: LACTATED RINGER'S 1000 ML IV PRN (06:00)
[2017-05-18] MEDS ORDERED: ENOXAPARIN SODIUM 30 MG/0.3 ML SYRINGE SQ SCH (06:00)
[2017-05-18] MEDS ORDERED: INSULIN HUMAN REGULAR 1,000 UNITS/10 ML VIAL SQ PRN (06:00)
[2017-05-18] MEDS ORDERED: SODIUM CHLORID 0.9% 500 ML IV PRN (06:00)
[2017-05-18] MEDS ORDERED: METOPROLOL TARTRATE 25 MG TAB PO PRN (06:00)
[2017-05-18] MEDS ORDERED: CHLORHEXIDINE GLUCONATE 2 % 1 PACK (2 CLOTHS) TOPICAL PRN (06:00)
[2017-05-18] MEDS ORDERED: POVIDONE IODINE 5% (ANTISEPSIS KIT) 4 APPLICATIONS EACH NARE PRN (06:00)
[2017-05-18] MEDS ORDERED: ceFAZolin 1,000 MG/NS 100 ML IV SCH ×2 (06:00)
[2017-05-18 10:31] LABS: BLOOD GAS BASE EXCESS -2.1 mmol/L (-2-2); BLOOD GAS CARBOXYHEMOGLOBIN 2.6 % (0-4); BLOOD GAS HCO3 22 mmol/L (22-26); BLOOD GAS O2 HGB SATURATION 96 % (90-100); BLOOD GAS OXYGEN CONTENT 18.3 Vol % (12.0-20.0); BLOOD GAS PCO2 38 mmHg (38-42); BLOOD GAS PO2 172 mmHg (61-120); BLOOD GAS TOTAL HGB 13.3 G/DL (12.0-16.0); TEMP CORR TO 98.6
[2017-05-18 10:32] LABS: CRITICAL VALUE NO; OXYGEN DEVICE VENTILATOR; STAT YES; ULNAR PULSE PRESENT
[2017-05-18] MEDS ORDERED: BUPIVACAINE HCL PF 0.5% 30 ML VIAL ONE (10:34)
[2017-05-18] MEDS ORDERED: MORPHINE SULFATE 4 MG/ML INJ IV PUSH PRN (11:30)
[2017-05-18] MEDS ORDERED: ACETAMINOPHEN 650 MG/20.3 ML UDC PO PRN (11:30)
[2017-05-18] MEDS ORDERED: *PROMETHAZINE 25 MG/ML VIAL PERIprocedural use ONLY ONE (11:43)
--- NOTE | 2017-05-18 11:44 | PD.OP ---
Operative Report Date of Surgery: May 18, 2017 Preoperative Diagnosis: Right Renal Mass Postoperative Diagnosis: Same Procedure: Right Radical Nephrectomy Anesthesia: KHURRAM Surgeon: Nolan Sage Complex Care Nurse Practitioner(s): Dr. Magdaleno Lopez Resident Surgeon: None Operation and Findings: 51-year-old male presented to the office with findings of a 5 cm centrally located right renal mass involving the hilum area. Decision was made to bring the patient to the operating room to undergo right radical nephrectomy. Patient has an EF of 20% and has a long-standing history of cardiomyopathy/CHF. Cardiology was consulted with Dr. Oliveira, who cleared the patient for surgery. Advice is that time was to stop the Xarleto and to start Lovenox 30 mg subcutaneous preoperatively. This was done. Patient was brought to the operating room and identified by myself as Dann Zavalaler. He was placed in the lateral recumbent position with the right side up and was placed on the beanbag. The arm was supported and all pads were placed appropriately. A 16 Slovenian Hammond catheter was inserted beginning the procedure. The patient received general endotracheal tube anesthesia. Preprocedure antibiotics were administered. He was prepped and draped in usual sterile fashion. A 15 blade was used to make the opening incision extending from the right tip of the 11th rib towards the midline. Incision was approximately 8 cm in length. Scar present Camper's fascia were then entered. The external and internal oblique muscles were cut as well as the transversalis muscle. The peritoneum was swept medially and then Natasha's fascia was entered. The kidney was palpated at the lower pole. Using the right angle clamp and Bovie cautery, the surrounding mane's fascia was excised away from the kidney. The tumor was palpated posteriorly and right over the hilar area. The dissection proceeded laterally and superior and those attachments were freed up. The medial aspect of the kidney was then dissected freely away from its attachments leaving only the hilar region intact. The ureter was identified and tied off with 2-0 silk sutures and then cut. The renal vein was identified using right angle clamp, the vessels were ligated with a 0 silk suture. This was done on the proximal and distal aspect and a 2-0 silk suture was also used to suture ligate the vein. The vein was then cut. The renal artery was identified and individually cut with the Bovie, hemostats were placed on the proximal distal end of the renal artery and this was tied with 0 silk suture. A 2-0 silk suture was also used to suture ligate the distal end of the renal artery and clips were also placed. Clips were placed on the specimen side of the renal artery also. The renal artery was then cut and blood loss up to this point was 300 cc. The remaining attachments were then freed and the kidney was delivered out of the patient and on to the table. The tumor was noted to be large and invading all the area of the hilar vessels. The wound was irrigated out with normal saline and then Shandra was used to place into the wound for hemostasis. Bovie cautery was also used to provide hemostasis. Decision was made to then use a 12 Slovenian Andrea drain which was placed into the wound. Half percent Marcaine was then used to infiltrate the edges of the wound. An On-Q pump was also placed. 0 looped PDS was then used to close the wound in a running fashion. The wound was then irrigated and then clips were then placed to close the wound. He was awoken, extubated, and transferred to recovery in stable condition. He was stable throughout the entire case and was monitored with a central line and arterial line. He will be transferred to the SICU for immediate postoperative care and cardiology will be consulted. Nolan Sage DO May 18, 2017 11:43
[2017-05-18] MEDS ORDERED: BUPIVACAINE HCL PF 0.5% 30 ML VIAL INFIL ONE (12:00)
[2017-05-18 12:19] LABS: HEMATOCRIT 40.8 % (39.0-51.0); MEAN CELL VOLUME 82.1 FL (80.0-100.0); MEAN CORPUSCULAR HGB CONC 31.7 % (32.0-36.0); PLATELET COUNT 131 TH/MM3 (150-450); RED BLOOD COUNT 4.96 MIL/MM3 (4.50-5.90); RED CELL DISTRIBUTION WIDTH 22.9 % (11.6-17.2); REVIEW FLAG FINAL
[2017-05-18] MEDS ORDERED: MORPHINE SULFATE 30 MG/30 ML PCA ONE (12:19)
[2017-05-18] MEDS: 1/2 NS + KCL 20 MEQ INJ 1,000 ML IV SCH ×2 (12:25→22:02)
[2017-05-18] MEDS: RESP: ALBUTEROL 2.5 MG/3 ML NEB (SCH) NEB ×4 (12:33→23:15)
[2017-05-18 12:38] LABS: BICARBONATE 27.2 MEQ/L (21.0-32.0); POTASSIUM 3.8 MEQ/L (3.5-5.1)
[2017-05-18] MEDS ORDERED: NALOXONE HCL 0.4 MG/ML AMP IV PUSH PRN (12:45)
[2017-05-18] MEDS ORDERED: MORPHINE SULFATE 30 MG/30 ML PCA IV SCH (12:45)
--- NOTE | 2017-05-18 12:53 | RADRPT ---
EXAM DATE/TIME: 05/18/2017 11:56 [place] COMPARISON: CHEST SINGLE AP, April 05, 2017, 2:34. INDICATIONS : Post central line placement. Post open right nephrectomy. MEDICAL HISTORY : Chronic obstructive pulmonary disease. Congestive heart failure.Gastroesophageal reflux disease. Hype rtension. Asthma. Sleep apnea. Renal failure. Arthritis. Fibromyalgia. Right renal mass. Shingles. Li nancy disease. C-diff. SURGICAL HISTORY : Left knee surgery. ENCOUNTER: Initial ACUITY: 1 day PAIN SCORE: 0/10 LOCATION: Right chest FINDINGS: Right central line tip in superior vena cava without pneumothorax. There is free intraperitoneal air under the right hemidiaphragm likely related to recent reported open nephrectomy. There is minimal ba silar atelectasis. CONCLUSION: 1. Right central line in superior vena cava without pneumothorax. Raphael Oliveira MD on May 18, 2017 at 12:51 Board Certified Radiologist. This report was verified electronically.
[2017-05-18] MEDS: GABAPENTIN 300 MG CAP PO SCH ×2 (13:00→17:49)
[2017-05-18] MEDS: PCA - TOTAL MG MORPHINE DELIVERED PER SHIFT SCH ×2 (14:00→22:08)
[2017-05-18] MEDS ORDERED: LACTATED RINGER'S 1000 ML INJ 2,000 ML IV ONE (14:30)
[2017-05-18] MEDS ORDERED: PROPOFOL 200 MG/20 ML AMP IV ONE (14:30)
[2017-05-18] MEDS ORDERED: LIDOCAINE HCL 1% PF 5 ML AMPULE OTHER ONE (14:30)
[2017-05-18] MEDS ORDERED: ePHEDrine/NS 25 MG/5 ML SYR IV ONE (14:30)
[2017-05-18] MEDS ORDERED: NEOSTIGMINE 3 MG/3 ML SYR IV ONE (14:30)
[2017-05-18] MEDS ORDERED: NORMOSOL R INJ 1,000 ML IV ONE (14:30)
[2017-05-18] MEDS ORDERED: GLYCOPYRROLATE 1 MG/5 ML SYRINGE IV PUSH ONE (14:30)
[2017-05-18] MEDS ORDERED: PHENYLEPH/NS 1000 MCG/10 ML SYR IV ONE (14:30)
--- NOTE | 2017-05-18 17:29 | MB ---
cc: DEDRICK MALDONADO DATE OF CONSULTATION 05/18/2017 DATE OF 1965 REASON FOR CONSULTATION Known cardiomyopathy, EF of 20%. HISTORY OF PRESENT ILLNESS 51-year-old male with cardiac history significant for nonischemic cardiomyopathy and LV thrombus on chronic oral anticoagulation that was admitted to the hospital for elective excision of a right renal mass involving the hilum area. He underwent a right radical nephrectomy without any apparent complications. Cardiology has been consulted for chronic systolic heart failure management. Currently the patient reports feeling well. He denies any shortness of breath, palpitations or leg edema. He has been getting fluids post operation. He reports being compliant with medical therapy. REVIEW OF SYSTEMS The review of systems is negative except for what is mentioned in HPI. PAST MEDICAL HISTORY 1. Nonischemic cardiomyopathy. 2. Severe LV systolic dysfunction with an EF of 20%. 3. Left ventricular thrombus. 4. COPD. 5. Right kidney mass. 6. Gout. MEDICATIONS Cardiac home medications: 1. Coreg 6.25 mg p.o. b.i.d. 2. Lasix 40 mg p.o. b.i.d. 3. Lisinopril 5 mg p.o. daily. 4. 20 mg p.o. daily. 5. Aldactone 25 mg p.o. daily. ALLERGIES IBUPROFEN, LEVAQUIN, ULTRAM. FAMILY HISTORY Denies history of coronary artery disease or sudden cardiac . SOCIAL HISTORY Denies alcohol, tobacco or drug abuse. PHYSICAL EXAMINATION VITAL SIGNS: Temperature 97.9, respiratory rate 16, heart rate 75, blood pressure 112/73, O2 sats 99% on 2 liters nasal cannula. GENERAL: He is awake, alert, oriented x3 in no acute distress. NECK: No JVD or carotid bruits. CARDIOVASCULAR: Regular rate and rhythm. No murmurs, rubs or gallops. LUNGS: Poor inspiratory effort. No wheezes or rhonchi or rales. ABDOMEN: Soft, nontender, nondistended. EXTREMITIES: No cyanosis or edema. Pulses diminished throughout. LABORATORY DATA CBC hemoglobin 12, hematocrit 40, platelet count 131. INR 1.1. Urinalysis is unremarkable. Chemistries sodium 137, potassium 3.8, BUN 8, creatinine 1.09, glucose 126. IMAGING Chest x-ray no acute cardiopulmonary process. No EKG in the system. ASSESSMENT/PLAN 51-year-old male with dilated cardiomyopathy, nonischemic in nature and history of an LV thrombus. He has been admitted for right radical nephrectomy in the setting of a mass. In terms of his cardiovascular status he is currently asymptomatic. He is compensated from the heart failure standpoint. At this point I will continue his home medications for heart failure including the Coreg and Lasix, the lisinopril and the Aldactone. Do daily weights. Avoid electrolyte abnormalities. Strict input and outputs. Encourage early ambulation and incentive spirometry. Regarding anticoagulation, I understand the patient has been started on Lovenox. He can be transitioned back to his home oral anticoagulation when cleared from surgical standpoint. Thank you for the opportunity to participate in the care of this patient. We will be available on an as needed basis for any other questions or concerns. MD ALESSANDRO Murillo/TRACEE /4:41 PM /4:52 PM ABEL
--- NOTE | 2017-05-18 17:40 | PD.CONS ---
[facility] Service Critical Care Medicine Consult Requested By Dr. Sage Reason for Consult perioperative management of comorbid conditions Primary Care Physician Nora Dodge History of Present Illness This is a 51yM with history of systolic CHF with an EF of 20%, prior DVTs and a prior LV thrombus on chronic anticoagulation who was found to have a right renal mass and underwent elective/urgent right nephrectomy. Intra-operative course was uncomplicated and the patient received 2500 mL crystalloid for an EBL of 300mL. He arrives extubated to the surgical ICU. He is arousing from anesthesia, and additional information is unobtainable from the patient. Critical Care medicine is consulted to evaluate and manage his comorbid conditions. Review of Systems ROS Limitations: Clinical Condition, Altered Mental Status ROS arousing from anesthesia. Past Family Social History Allergies: Coded Allergies: levofloxacin (Verified Allergy, Mild, EDEMA, 04/26/17) tramadol (Verified Allergy, Mild, ITCHING, 04/26/17) ibuprofen (Verified Adverse Reaction, Severe, Nausea/Vomiting, 05/18/17) Past Medical History systolic CHF with an EF 20% severe tricuspid regurgitation right renal mass active smoker HTN h/o celiac vein thrombosis COPD Asthma Hyperlipidemia peripheral neuropathy fibromyalgia GERD h/o elevated LFTs Erectile Dysfunction Chronic kidney disease, baseline Cr 1.8 DVT Rheumatoid arthritis Past Surgical History left knee surgery x 2 Reported Medications Lasix (Furosemide) 40 Mg Tab 40 Mg PO BID Nystatin Topical (Nystatin) 100,000 unit/gm Cream 1 Applic TOPICAL BID Lisinopril 5 Mg Tab 5 Mg PO DAILY Zyloprim (Allopurinol) 100 Mg Tab 100 Mg PO DAILY Albuterol Neb (Albuterol Sulfate) 2.5 Mg/3 Ml Neb 2.5 Mg NEB Q4HR NEB While awake Neurontin (Gabapentin) 300 Mg Cap 900 Mg PO TID Xarelto (Rivaroxaban) 20 Mg Tab 20 Mg PO DAILY Hydrocodone-Acetaminophen 10-325 mg Tab 1 Tab PO Q6H PRN Carvedilol 6.25 Mg Tab 6.25 Mg PO BID Butalbital-Acetaminophen 50-325 Mg Tab 1-2 Tab PO Q4HR PRN Do not exceed 6 tablets per day. Spironolactone 25 Mg Tab 25 Mg PO DAILY Docusate Sodium 100 Mg Cap 100 Mg PO Q12HR Baclofen 10 Mg Tab 10 Mg PO Q8HR PRN Active Ordered Medications See MAR Family History reviewed in the chart and found to be noncontributory to his acute illness Social History active smoker Physical Exam Vital Signs Vital Signs Date Time Temp Pulse Resp B/P (MAP) Pulse Ox O2 Delivery O2 Flow Rate FiO2 05/18/17 15:39 96 21 05/18/17 14:00 75 05/18/17 14:00 16 05/18/17 13:00 99 Nasal Cannula 2.00 05/18/17 13:00 68 05/18/17 12:40 97.9 73 14 98 Nasal Cannula 2 05/18/17 12:30 79 14 112/73 (86) 98 Aerosol Mask 05/18/17 12:25 13 05/18/17 12:15 85 14 116/74 (88) 97 Nasal Cannula 2 05/18/17 12:00 88 16 106/70 (82) 98 Nasal Cannula 2 05/18/17 11:45 97 14 99/55 (70) 94 Nasal Cannula 2 05/18/17 11:32 98.4 91 15 145/70 (95) 97 Simple Mask 6 99/65 (76) 05/18/17 06:19 97.9 97 22 123/81 (95) 98 Physical Exam gen: middle-aged male, lying in bed, arousing from anesthesia heent: perrl. mucous membranes moist. neck: no jvd. trachea midline chest: NC o2. unlabored. equal chest rise cv: normal rate, regular rhythm. abd: soft, appropriately tender to palpation. nondistended. right flank incision clean dry and intact with a single RADHA drain with ~30mL sanguinous output. no guarding. extr: distal pulses 2+. warm, well perfused. neuro: RASS -2. arousing from anesthesia. non-focal. follows commands. Laboratory Laboratory Tests Test 05/18/17 10:15 05/18/17 11:55 Blood Gas Puncture Site DRAWN IN OR Blood Gas Patient Temperature 98.6 Blood Gas HCO3 22 Blood Gas Base Excess -2.1 Blood Gas Oxygen Saturation 96 Arterial Blood pH 7.38 Arterial Blood Partial Pressure CO2 38 Arterial Blood Partial Pressure O2 172 Arterial Blood Oxygen Content 18.3 Arterial Blood Carboxyhemoglobin 2.6 Arterial Blood Methemoglobin 1.0 Blood Gas Hemoglobin 13.3 Oxygen Delivery Device VENTILATOR Blood Gas Ventilator Setting DRAWN IN OR White Blood Count 13.0 Red Blood Count 4.96 Hemoglobin 12.9 Hematocrit 40.8 Mean Corpuscular Volume 82.1 Mean Corpuscular Hemoglobin 26.0 Mean Corpuscular Hemoglobin Concent 31.7 Red Cell Distribution Width 22.9 Platelet Count 131 Mean Platelet Volume 10.9 Blood Urea Nitrogen 8 Creatinine 1.09 Random Glucose 126 Calcium Level 8.3 Sodium Level 137 Potassium Level 3.8 Chloride Level 103 Carbon Dioxide Level 27.2 Anion Gap 7 Estimat Glomerular Filtration Rate 71 Result Diagram: 05/18/17 1155 05/18/17 1155 Assessment and Plan Assessment and Plan Assessment: 51yM with history of cardiomyopathy EF 20% and now POD 0 s/p right nephrectomy for mass. Will be judicious with fluids, but needs gentle ongoing resuscitation post nephrectomy. watch hgb closely. will observe in ICU and anticipate early mobilization of fluids and forced diuresis once resuscitation has completed. s/p Right nephrectomy - pain management per surgeon - watch RADHA drain output - trend hgb Cardiomyopathy, EF 20% Hypertension Hyperlipidemia - continue statin - goal sbp < 180 - gentle fluid hydration with close monitoring and a goal of early forced diuresis when resuscitation is complete. Fibromyalgia Chronic pain syndrome - agree with restarting home gabapentin Acute on chronic kidney disease, unknown stage - watch uop carefully. - trend Cr - gentle mivf. COPD Tobacco use - wean o2 by [place] for goal spo2 > 90% - aggressive pulmonary toilet - PT consult - nebs prn History of DVT History of LV Thrombus - agree with prophylactic anticoagulation currently and would recommend full anticoagulation as soon as deemed safe by Urology. Critical Care Medicine will continue to follow along while the patient is in the ICU. Carter Valle MD May 18, 2017 17:40
[2017-05-18] MEDS ORDERED: RESP: ALBUTEROL 2.5 MG/IPRATROPIUM 0.5 MG NEB (PRN) INH (17:45)
[2017-05-18] MEDS ORDERED: POTASSIUM PHOSPHATE INJ 30 MMOL in SODIUM CHLOR 0.9% 250 ML INJ 250 ML IV PRN (17:45)
[2017-05-18] MEDS ORDERED: POTASSIUM PHOSPHATE MONOBASIC 500 MG TAB PO PRN (17:45)
[2017-05-18] MEDS ORDERED: MAGNESIUM OXIDE 400 MG TAB PO PRN (17:45)
[2017-05-18] MEDS ORDERED: POTASSIUM CHLOR 20 MEQ PREMIX 100 ML IV PRN ×2 (17:45)
[2017-05-18] MEDS ORDERED: MAGNESIUM SULFATE INJ 4 GM in SODIUM CHLORIDE 0.9% INJ 92 ML IV PRN (17:45)
[2017-05-18] MEDS ORDERED: POTASSIUM PHOSPHATE MONOBASIC 500 MG TAB PO/TUBE PRN (17:45)
[2017-05-18] MEDS ORDERED: MAGNESIUM SULFATE INJ 2 GM in SODIUM CHLORIDE 0.9% INJ 96 ML IV PRN (17:45)
[2017-05-18] MEDS ORDERED: POTASSIUM CHLOR 40 MEQ PREMIX 100 ML IV PRN ×2 (17:45)
[2017-05-18] MEDS ORDERED: SODIUM PHOSPHATE INJ 30 MMOL in SODIUM CHLOR 0.9% 250 ML INJ 240 ML IV PRN (17:45)
[2017-05-18] MEDS: FUROSEMIDE 40 MG TAB PO SCH (17:54)
[2017-05-18] MEDS: DOCUSATE SODIUM 100 MG CAP PO SCH (21:00)
[2017-05-18] MEDS: CARVEDILOL 6.25 MG TAB PO SCH (21:00)
[2017-05-19] VITALS (15 sets, daily range): BP systolic 89–145; BP diastolic 60–83; PULSE 70–107; RESP 12–18; TEMP 98–98.7; O2SAT 91–96
[2017-05-19] MEDS: RESP: ALBUTEROL 2.5 MG/3 ML NEB (SCH) NEB ×6 (04:27→23:44)
[2017-05-19] MEDS: 1/2 NS + KCL 20 MEQ INJ 1,000 ML IV SCH ×3 (04:42→18:23)
[2017-05-19 05:08] LABS: HEMATOCRIT 41.3 % (39.0-51.0); MEAN CELL VOLUME 82.2 FL (80.0-100.0); MEAN CORPUSCULAR HEMOGLOBIN 26.2 PG (27.0-34.0); MEAN CORPUSCULAR HGB CONC 31.9 % (32.0-36.0); PLATELET COUNT 128 TH/MM3 (150-450); RED BLOOD COUNT 5.02 MIL/MM3 (4.50-5.90); RED CELL DISTRIBUTION WIDTH 22.8 % (11.6-17.2); REVIEW FLAG FINAL; WHITE BLOOD COUNT 9.9 TH/MM3 (4.0-11.0)
[2017-05-19 05:16] LABS: POTASSIUM 4.3 MEQ/L (3.5-5.1)
[2017-05-19] MEDS: PCA - TOTAL MG MORPHINE DELIVERED PER SHIFT SCH ×3 (06:36→22:00)
[2017-05-19] MEDS ORDERED: ENOXAPARIN SODIUM 30 MG/0.3 ML SYRINGE SQ SCH (07:00)
[2017-05-19] MEDS: LISINOPRIL 5 MG TAB PO SCH (07:51)
[2017-05-19] MEDS: CARVEDILOL 6.25 MG TAB PO SCH ×2 (07:51→21:00)
[2017-05-19] MEDS: DOCUSATE SODIUM 100 MG CAP PO SCH ×2 (09:04→21:23)
[2017-05-19] MEDS: GABAPENTIN 300 MG CAP PO SCH ×3 (09:04→18:22)
[2017-05-19] MEDS: SPIRONOLACTONE 25 MG TAB PO SCH (09:04)
[2017-05-19] MEDS: ALLOPURINOL 100 MG TAB PO SCH (09:04)
[2017-05-19] MEDS: FUROSEMIDE 40 MG TAB PO SCH ×2 (09:05→18:22)
[2017-05-19] MEDS: ONDANSETRON HCL 4 MG/2 ML VIAL IV PUSH PRN (09:05)
[2017-05-19] MEDS: diphenhydrAMINE HCL 50 MG/ML VIAL IV PUSH PRN (09:05)
--- NOTE | 2017-05-19 09:35 | HHI.PR ---
Subjective Patient symptoms today Pt seen and examined. C/o pain. Some nausea overnight. Objective Vital Signs Vital Signs Date Time Temp Pulse Resp B/P (MAP) Pulse Ox O2 Delivery O2 Flow Rate FiO2 05/19/17 08:00 92 05/19/17 08:00 98.2 92 14 105/69 (81) 91 05/19/17 07:46 95 21 05/19/17 07:00 98 Room Air 05/19/17 06:36 17 05/19/17 06:00 95 05/19/17 04:00 98.5 87 18 145/83 (103) 96 05/19/17 04:00 99 05/19/17 02:00 96 05/19/17 00:00 99 05/19/17 00:00 98.3 99 17 145/73 (97) 94 05/18/17 22:08 16 05/18/17 22:00 97 05/18/17 20:16 95 05/18/17 20:00 98.3 93 12 128/86 (100) 97 Arterial Line 05/18/17 20:00 93 05/18/17 19:00 96 Nasal Cannula 2.00 05/18/17 18:00 91 05/18/17 16:00 93 05/18/17 15:39 96 21 05/18/17 14:00 75 05/18/17 14:00 16 05/18/17 13:00 99 Nasal Cannula 2.00 05/18/17 13:00 68 05/18/17 12:40 97.9 73 14 98 Nasal Cannula 2 05/18/17 12:30 79 14 112/73 (86) 98 Aerosol Mask 05/18/17 12:25 13 05/18/17 12:15 85 14 116/74 (88) 97 Nasal Cannula 2 05/18/17 12:00 88 16 106/70 (82) 98 Nasal Cannula 2 05/18/17 11:45 97 14 99/55 (70) 94 Nasal Cannula 2 05/18/17 11:32 98.4 91 15 145/70 (95) 97 Simple Mask 6 99/65 (76) Intake & Output 05/19/17 05/19/17 07:00 19:00 Intake Total 1231 ml 96 ml Output Total 665 ml Balance 566 ml 96 ml Intake IV Total 1231 ml 96 ml Output Urine Total 625 ml Drainage Total 40 ml Result Diagram: 05/19/1742905/19/17429 Objective Remarks Abd:soft,nt,nd Dressing intact Hammond with clear urine Medications and IVs Current Medications Medications (Trade) Dose Ordered Sig/Vishal Route Start Time Stop Time Status Last Admin (Lopressor) 25 mg MULTIMEDIA SERVICES MANAGER PRN PO 05/18/17 06:00 05/21/17 05:59 (Betadine 5% Antisepsis Kit) 1 applic MULTIMEDIA SERVICES MANAGER PRN EACH NARE 05/18/17 06:00 05/21/17 05:59 05/18/17 06:26 (Chlorhexidine 2% Cloth) 3 pack MULTIMEDIA SERVICES MANAGER PRN TOPICAL 05/18/17 06:00 05/21/17 05:59 05/18/17 05:40 (NovoLIN R INJ) See Protocol Table ... MULTIMEDIA SERVICES MANAGER PRN SQ 05/18/17 06:00 05/21/17 05:59 (Morphine Inj) 2 mg Q3H PRN IV PUSH 05/18/17 11:30 Potassium Chloride/Sodium Chloride 1,000 ml @ 125 mls/hr Q8H IV 05/18/17 12:00 05/19/17 04:42 (Tylenol 650 Mg/ 20 ml Liq) 650 mg Q6H PRN PO 05/18/17 11:30 (Lovenox Inj) 30 mg Q24H SQ 05/19/17 07:00 (Zofran Inj) 4 mg Q6HR PRN IV PUSH 05/18/17 11:30 05/19/17 09:05 (Neurontin) 300 mg TID PO 05/18/17 13:00 05/19/17 09:04 (Lioresal) 10 mg Q8HR PRN PO 05/18/17 12:00 (Albuterol Neb) 2.5 mg Q4HR NEB NEB 05/18/17 12:00 05/19/17 07:38 (Zyloprim) 100 mg DAILY PO 05/19/17 09:00 05/19/17 09:04 (Prinivil) 5 mg DAILY PO 05/19/17 09:00 (Colace) 100 mg BID PO 05/18/17 21:00 05/19/17 09:04 (Aldactone) 25 mg DAILY PO 05/19/17 09:00 05/19/17 09:04 (Coreg) 6.25 mg Q12HR PO 05/18/17 21:00 (Swain 10-325 Mg) 1 tab Q6H PRN PO 05/18/17 11:30 (Lasix) 40 mg BID@,18 PO 05/18/17 18:00 05/19/17 09:05 (Morphine 1 Mg/ ml METALIZING SUPERVISOR) 30 mg UNSCH IV 05/18/17 12:45 METALIZING SUPERVISOR Dosage Infused (Pha) 1 Q8HR .XX 05/18/17 14:00 05/19/17 06:36 (Narcan Inj) 0.4 mg UNSCH PRN IV PUSH 05/18/17 12:45 (Benadryl Inj) 25 mg Q6H PRN IV PUSH 05/18/17 12:45 05/19/17 09:05 (Duoneb Neb) 1 ampule Q2HR NEB PRN INH 05/18/17 17:45 (Mag-Ox) 800 mg UNSCH PRN PO 05/18/17 17:45 Magnesium Sulfate 4 gm/Sodium Chloride 100 ml @ 50 mls/hr UNSCH PRN IV 05/18/17 17:45 Magnesium Sulfate 2 gm/Sodium Chloride 100 ml @ 50 mls/hr UNSCH PRN IV 05/18/17 17:45 Potassium Chloride 100 ml @ 50 mls/hr Q2H PRN IV 05/18/17 17:45 Potassium Chloride 100 ml @ 50 mls/hr Q2H PRN IV 05/18/17 17:45 Potassium Chloride 100 ml @ 50 mls/hr Q2H PRN IV 05/18/17 17:45 Potassium Chloride 100 ml @ 25 mls/hr UNSCH PRN IV 05/18/17 17:45 (K-Phos) 2,000 mg Q4H PRN PO 05/18/17 17:45 (K-Phos) 2,000 mg UNSCH PRN PO/TUBE 05/18/17 17:45 Potassium Phosphate 30 mmol/ Sodium Chloride 260 ml @ 42 mls/hr UNSCH PRN IV 05/18/17 17:45 Sodium Phosphate 30 mmol/Sodium Chloride 250 ml @ 42 mls/hr UNSCH PRN IV 05/18/17 17:45 Assessment and Plan Assessment and Plan Stable s/p right radical nephrectomy OOB to chair Pain control Ice chips Continue Nolan Interiano DO May 19, 2017 09:35
--- NOTE | 2017-05-19 12:04 | PD.CARD.PN ---
Subjective Subjective Remarks no cv complaints Objective Medications Current Medications Medications (Trade) Dose Ordered Sig/Vishal Route Start Time Stop Time Status Last Admin (Lopressor) 25 mg HISTORY TEACHER PRN PO 05/18/17 06:00 05/21/17 05:59 (Betadine 5% Antisepsis Kit) 1 applic HISTORY TEACHER PRN EACH NARE 05/18/17 06:00 05/21/17 05:59 05/18/17 06:26 (Chlorhexidine 2% Cloth) 3 pack HISTORY TEACHER PRN TOPICAL 05/18/17 06:00 05/21/17 05:59 05/18/17 05:40 (NovoLIN R INJ) See Protocol Table ... HISTORY TEACHER PRN SQ 05/18/17 06:00 05/21/17 05:59 (Morphine Inj) 2 mg Q3H PRN IV PUSH 05/18/17 11:30 Potassium Chloride/Sodium Chloride 1,000 ml @ 125 mls/hr Q8H IV 05/18/17 12:00 05/19/17 04:42 (Tylenol 650 Mg/ 20 ml Liq) 650 mg Q6H PRN PO 05/18/17 11:30 (Lovenox Inj) 30 mg Q24H SQ 05/19/17 07:00 (Zofran Inj) 4 mg Q6HR PRN IV PUSH 05/18/17 11:30 05/19/17 09:05 (Neurontin) 300 mg TID PO 05/18/17 13:00 05/19/17 09:04 (Lioresal) 10 mg Q8HR PRN PO 05/18/17 12:00 (Albuterol Neb) 2.5 mg Q4HR NEB NEB 05/18/17 12:00 05/19/17 11:22 (Zyloprim) 100 mg DAILY PO 05/19/17 09:00 05/19/17 09:04 (Prinivil) 5 mg DAILY PO 05/19/17 09:00 (Colace) 100 mg BID PO 05/18/17 21:00 05/19/17 09:04 (Aldactone) 25 mg DAILY PO 05/19/17 09:00 05/19/17 09:04 (Coreg) 6.25 mg Q12HR PO 05/18/17 21:00 ([place] 10-325 Mg) 1 tab Q6H PRN PO 05/18/17 11:30 (Lasix) 40 mg BID@09,18 PO 05/18/17 18:00 05/19/17 09:05 (Morphine 1 Mg/ ml BUTTON SPINDLER) 30 mg UNSCH IV 05/18/17 12:45 BUTTON SPINDLER Dosage Infused (Pha) 1 Q8HR .XX 05/18/17 14:00 05/19/17 06:36 (Narcan Inj) 0.4 mg UNSCH PRN IV PUSH 05/18/17 12:45 (Benadryl Inj) 25 mg Q6H PRN IV PUSH 05/18/17 12:45 05/19/17 09:05 (Duoneb Neb) 1 ampule Q2HR NEB PRN INH 05/18/17 17:45 (Mag-Ox) 800 mg UNSCH PRN PO 05/18/17 17:45 Magnesium Sulfate 4 gm/Sodium Chloride 100 ml @ 50 mls/hr UNSCH PRN IV 05/18/17 17:45 Magnesium Sulfate 2 gm/Sodium Chloride 100 ml @ 50 mls/hr UNSCH PRN IV 05/18/17 17:45 Potassium Chloride 100 ml @ 50 mls/hr Q2H PRN IV 05/18/17 17:45 Potassium Chloride 100 ml @ 50 mls/hr Q2H PRN IV 05/18/17 17:45 Potassium Chloride 100 ml @ 50 mls/hr Q2H PRN IV 05/18/17 17:45 Potassium Chloride 100 ml @ 25 mls/hr UNSCH PRN IV 05/18/17 17:45 (K-Phos) 2,000 mg Q4H PRN PO 05/18/17 17:45 (K-Phos) 2,000 mg UNSCH PRN PO/TUBE 05/18/17 17:45 Potassium Phosphate 30 mmol/ Sodium Chloride 260 ml @ 42 mls/hr UNSCH PRN IV 05/18/17 17:45 Sodium Phosphate 30 mmol/Sodium Chloride 250 ml @ 42 mls/hr UNSCH PRN IV 05/18/17 17:45 Vital Signs / I&O Vital Signs Date Time Temp Pulse Resp B/P (MAP) Pulse Ox O2 Delivery O2 Flow Rate FiO2 05/19/17 11:23 92 21 05/19/17 10:00 102 05/19/17 08:00 92 05/19/17 08:00 98.2 92 14 105/69 (81) 91 05/19/17 07:46 95 21 05/19/17 07:00 98 Room Air 05/19/17 06:36 17 05/19/17 06:00 95 05/19/17 04:00 98.5 87 18 145/83 (103) 96 05/19/17 04:00 99 05/19/17 02:00 96 05/19/17 00:00 99 05/19/17 00:00 98.3 99 17 145/73 (97) 94 05/18/17 22:08 16 05/18/17 22:00 97 05/18/17 20:16 95 05/18/17 20:00 98.3 93 12 128/86 (100) 97 Arterial Line 05/18/17 20:00 93 05/18/17 19:00 96 Nasal Cannula 2.00 05/18/17 18:00 91 05/18/17 16:00 93 05/18/17 15:39 96 21 05/18/17 14:00 75 05/18/17 14:00 16 05/18/17 13:00 99 Nasal Cannula 2.00 05/18/17 13:00 68 05/18/17 12:40 97.9 73 14 98 Nasal Cannula 2 05/18/17 12:30 79 14 112/73 (86) 98 Aerosol Mask 05/18/17 12:25 13 05/18/17 12:15 85 14 116/74 (88) 97 Nasal Cannula 2 I/O 05/18/17 05/18/17 05/18/17 05/19/17 05/19/17 05/19/17 06:59 14:59 22:59 06:59 14:59 22:59 Intake Total 100 ml 2595 ml 375 ml 1231 ml 96 ml Output Total 595 ml 600 ml 665 ml Balance 100 ml 2000 ml -225 ml 566 ml 96 ml Intake IV Total 100 ml 195 ml 375 ml 1231 ml 96 ml Other 2400 ml Output Urine Total 225 ml 500 ml 625 ml Drainage Total 70 ml 100 ml 40 ml Estimated Blood Loss 300 ml Physical Exam GENERAL: Well-nourished, well-developed patient. SKIN: Warm and dry. HEAD: Normocephalic. EYES: No scleral icterus. No injection or drainage. NECK: Supple, trachea midline. No JVD or lymphadenopathy. CARDIOVASCULAR: Regular rate and rhythm without murmurs, gallops, or rubs. RESPIRATORY: Breath sounds equal bilaterally. No accessory muscle use. GASTROINTESTINAL: Abdomen soft, non-tender, nondistended. EXTREMITIES: No cyanosis, or edema. NEUROLOGICAL: Awake, alert, and oriented x 3. Non-focal. Laboratory Laboratory Tests Test 05/19/17 04:30 White Blood Count 9.9 TH/MM3 Red Blood Count 5.02 MIL/MM3 Hemoglobin 13.2 GM/DL Hematocrit 41.3 % Mean Corpuscular Volume 82.2 FL Mean Corpuscular Hemoglobin 26.2 PG Mean Corpuscular Hemoglobin Concent 31.9 % Red Cell Distribution Width 22.8 % Platelet Count 128 TH/MM3 Mean Platelet Volume 10.7 FL Blood Urea Nitrogen 10 MG/DL Creatinine 1.29 MG/DL Random Glucose 99 MG/DL Calcium Level 8.1 MG/DL Sodium Level 137 MEQ/L Potassium Level 4.3 MEQ/L Chloride Level 103 MEQ/L Carbon Dioxide Level 29.0 MEQ/L Anion Gap 5 MEQ/L Estimat Glomerular Filtration Rate 58 ML/MIN Imaging Last Impressions Chest X-Ray 05/18/17 0000 Signed Impressions: Service Date/Time: Thursday, May 18, 2017 11:56 - CONCLUSION: 1. Right central line in superior vena cava without pneumothorax. Raphael Oliveira MD Assessment and Plan Problem List: (1) Cardiomyopathy ICD Codes: I42.9 - Cardiomyopathy, unspecified Status: Acute Plan: Continue medical management for NICMP Restart Oral anticoagulation when clear from surgical standpoint Sign off (2) HTN (hypertension) ICD Codes: I10 - Essential (primary) hypertension Status: Chronic (3) COPD (chronic obstructive pulmonary disease) ICD Codes: J44.9 - Chronic obstructive pulmonary disease Status: Chronic (4) Acute on chronic congestive heart failure ICD Codes: I50.9 - Heart failure, unspecified Status: Acute (5) Right kidney mass ICD Codes: N28.89 - Other specified disorders of kidney and ureter Status: Chronic (6) CHF (congestive heart failure) ICD Codes: I50.9 - Heart failure, unspecified Status: Acute (7) Left ventricular thrombosis without ID ICD Codes: I51.3 - Intracardiac thrombosis, not elsewhere classified Status: Chronic Tee-Juan Werner MD May 19, 2017 12:04
[2017-05-19] MEDS: LACTATED RINGER'S 1000 ML INJ 1,000 ML IV SCH ×5 (14:00→22:00)
[2017-05-19] MEDS: ACETAMINOPHEN/HYDROcodone 325 MG/10 MG TAB PO PRN (18:23)
--- NOTE | 2017-05-19 18:36 | HHI.CCPN ---
Subjective Remarks/Hospital Course Hospital Course: This is a 51yM with history of systolic CHF with an EF of 20%, prior DVTs and a prior LV thrombus on chronic anticoagulation who was found to have a right renal mass and underwent elective/urgent right nephrectomy. Intra-operative course was uncomplicated and the patient received 2500 mL crystalloid for an EBL of 300mL. He arrives extubated to the surgical ICU. He is arousing from anesthesia, and additional information is unobtainable from the patient. Critical Care medicine is consulted to evaluate and manage his comorbid conditions. Subjective: 05/19: seen and evaluated around 11am. delayed note entry. complains of pain at the incision site, but has not limited him in ambulating x 2 this AM. small amount of sanguinous RADHA drainage. hct went up today, suggesting ongoing fluid losses to intra-abdominal edema/fluid shifts. slightly hypotensive late morning which responded well to 500cc LR bolus. Cr slightly elevated, but adequate uop. ROS otherwise negative. Objective Vital Signs Date Time Temp Pulse Resp B/P (MAP) Pulse Ox O2 Delivery O2 Flow Rate FiO2 05/19/17 18:00 101 05/19/17 16:00 98.7 13 102/62 (75) 92 05/19/17 11:23 21 05/19/17 07:00 Room Air 05/18/17 19:00 2.00 Intake and Output 05/19/17 05/19/17 05/19/17 07:59 15:59 23:59 Intake Total 1327 ml 2136 ml Output Total 665 ml 780 ml Balance 662 ml 1356 ml Result Diagram: 05/19/17 0430 05/19/17 0430 Objective Remarks gen: middle-aged male, lying in bed, no acute distress. heent: perrl. mucous membranes moist. neck: no jvd. trachea midline chest: NC o2. unlabored. equal chest rise cv: normal rate, regular rhythm. abd: soft, appropriately tender to palpation. nondistended. right flank incision clean dry and intact with a single RADHA drain with trace sanguinous output. no guarding. extr: distal pulses 2+. warm, well perfused. neuro: RASS 0. non-focal. follows commands. A/P Assessment and Plan Assessment: 51yM with history of cardiomyopathy EF 20% and now POD 1 s/p right nephrectomy for mass. continue mivf as patient clinically appears intra- vascularly dry. Continue another day in ICU and anticipate early mobilization of fluids and forced diuresis once resuscitation has completed. s/p Right nephrectomy - pain management per surgeon - watch RADHA drain output - trend hgb Cardiomyopathy, EF 20% Hypertension Hyperlipidemia - continue statin - goal sbp < 180 - gentle fluid hydration with close monitoring and a goal of early forced diuresis when resuscitation is complete. Fibromyalgia Chronic pain syndrome - agree with restarting home gabapentin Acute on chronic kidney disease, unknown stage - watch uop carefully. - trend Cr - gentle mivf. COPD Tobacco use - wean o2 by [place] for goal spo2 > 90% - aggressive pulmonary toilet - PT consult - nebs prn History of DVT History of LV Thrombus - agree with prophylactic anticoagulation currently and would recommend full anticoagulation as soon as deemed safe by Urology. Critical Care Medicine will continue to follow along while the patient is in the ICU. Carter Valle MD May 19, 2017 18:36
[2017-05-20] VITALS (12 sets, daily range): BP systolic 99–113; BP diastolic 51–67; PULSE 86–110; RESP 14–18; TEMP 98.1–98.6; O2SAT 92–100
[2017-05-20] MEDS: LACTATED RINGER'S 1000 ML INJ 1,000 ML IV SCH ×3 (02:00→04:00)
[2017-05-20] MEDS: RESP: ALBUTEROL 2.5 MG/3 ML NEB (SCH) NEB ×6 (03:56→23:45)
[2017-05-20] MEDS: 1/2 NS + KCL 20 MEQ INJ 1,000 ML IV SCH (05:15)
[2017-05-20 05:33] LABS: HEMATOCRIT 42.8 % (39.0-51.0); MEAN CELL VOLUME 81.9 FL (80.0-100.0); MEAN CORPUSCULAR HEMOGLOBIN 26.4 PG (27.0-34.0); MEAN CORPUSCULAR HGB CONC 32.3 % (32.0-36.0); PLATELET COUNT 94 TH/MM3 (150-450); RED BLOOD COUNT 5.22 MIL/MM3 (4.50-5.90); RED CELL DISTRIBUTION WIDTH 23.4 % (11.6-17.2); WHITE BLOOD COUNT 12.2 TH/MM3 (4.0-11.0)
[2017-05-20 05:34] LABS: REVIEW FLAG FINAL
[2017-05-20] MEDS: PCA - TOTAL MG MORPHINE DELIVERED PER SHIFT SCH ×3 (06:00→22:00)
[2017-05-20 06:23] LABS: BICARBONATE 24.3 MEQ/L (21.0-32.0)
[2017-05-20 06:24] LABS: POTASSIUM 4.7 MEQ/L (3.5-5.1)
--- NOTE | 2017-05-20 07:17 | HHI.CCPN ---
Subjective Remarks/Hospital Course Hospital Course: This is a 51yM with history of systolic CHF with an EF of 20%, prior DVTs and a prior LV thrombus on chronic anticoagulation who was found to have a right renal mass and underwent elective/urgent right nephrectomy. Intra-operative course was uncomplicated and the patient received 2500 mL crystalloid for an EBL of 300mL. He arrives extubated to the surgical ICU. He is arousing from anesthesia, and additional information is unobtainable from the patient. Critical Care medicine is consulted to evaluate and manage his comorbid conditions. Subjective: 05/19: seen and evaluated around 11am. delayed note entry. complains of pain at the incision site, but has not limited him in ambulating x 2 this AM. small amount of sanguinous RADHA drainage. hct went up today, suggesting ongoing fluid losses to intra-abdominal edema/fluid shifts. slightly hypotensive late morning which responded well to 500cc LR bolus. Cr slightly elevated, but adequate uop. ROS otherwise negative. 05/20: Lying in bed, C/o of R flank pain. UO 4L in 24 hours. Cr 1.3 to 1.46 as expected after nephrectomy. DC 1/2NS -Na trending down. Continue Lasix Aldactone. Cardiology Dr. Oliveira Objective Vital Signs Date Time Temp Pulse Resp B/P (MAP) Pulse Ox O2 Delivery O2 Flow Rate FiO2 05/20/17 04:00 86 05/20/17 04:00 98.5 18 100/64 (76) 94 05/19/17 19:28 21 05/19/17 19:00 Room Air 05/18/17 19:00 2.00 Intake and Output 05/20/17 05/20/17 05/21/17 08:00 16:00 00:00 Intake Total 1000 ml Balance 1000 ml Result Diagram: 05/20/17 0351 05/20/17 0351 Objective Remarks gen: middle-aged male, lying in bed, mild distress due to pain. heent: perrl. mucous membranes moist. neck: no jvd. trachea midline chest: NC O2. unlabored. equal chest rise cv: normal rate, regular rhythm. abd: soft, appropriately tender to palpation. nondistended. right flank incision clean dry and intact with a single RADHA drain with trace sanguinous output. no guarding. extr: distal pulses 2+. warm, well perfused. neuro: AO x3. non-focal. follows commands. A/P Assessment and Plan Assessment: 51yM with history of cardiomyopathy EF 20% and now POD 1 s/p right nephrectomy for mass. DC mivf. Continue home Lasix and Aldactone. Restart rivaroxaban per cardiology once cleared by urology s/p Right nephrectomy - pain management per surgeon - watch RADHA drain output Cardiomyopathy, EF 20% Hypertension Hyperlipidemia - DC MIVF - Continue home medications of Lasix 40 twice a day, Aldactone 25 daily, and lisinopril 5 mg daily, Coreg 6.25 twice a day, and statin Fibromyalgia Chronic pain syndrome - Continue home gabapentin Acute on chronic kidney disease, unknown stage - watch uop carefully. - trend Cr increased from 1.3 to 1.46 expected from nephrectomy - Diuresis as above COPD Tobacco use - wean o2 by [place] for goal spo2 > 90% - aggressive pulmonary toilet - PT consult - nebs prn History of DVT History of LV Thrombus - Prophylactic anticoagulation currently and would recommend full anticoagulation as soon as deemed safe by Urology. Ok to transfer to Med/Surg with Tele. Critical Care Medicine will continue to follow along while the patient is in the ICU. Level 2 Caren Potts MD May 20, 2017 07:17
[2017-05-20] MEDS ORDERED: SODIUM CHLOR 0.9% 1000 ML INJ 1,000 ML IV SCH (08:45)
--- NOTE | 2017-05-20 08:47 | HHI.PR ---
Subjective Patient symptoms today Pt seen and examined. Feels well. OOB x 2 yesterday. Objective Vital Signs Vital Signs Date Time Temp Pulse Resp B/P (MAP) Pulse Ox O2 Delivery O2 Flow Rate FiO2 05/20/17 06:00 94 05/20/17 06:00 14 05/20/17 04:00 86 05/20/17 04:00 98.5 86 18 100/64 (76) 94 05/20/17 02:00 96 05/20/17 00:00 96 05/20/17 00:00 98.6 96 15 101/67 (78) 100 05/19/17 22:00 98 05/19/17 22:00 12 05/19/17 20:00 103 05/19/17 20:00 98.7 103 12 95/60 (72) 96 05/19/17 19:28 95 21 05/19/17 19:23 20 05/19/17 19:00 95 Room Air 05/19/17 18:00 101 05/19/17 16:00 102 05/19/17 16:00 98.7 107 13 102/62 (75) 92 05/19/17 14:00 97 05/19/17 14:00 13 05/19/17 12:00 91 05/19/17 12:00 98.0 70 17 89/63 (72) 93 05/19/17 11:23 92 21 05/19/17 10:00 102 Intake & Output 05/20/17 05/20/17 07:00 19:00 Intake Total 4780 ml Output Total 4000 ml 15 ml Balance 780 ml -15 ml Intake IV Total 4780 ml Output Urine Total 4000 ml Drainage Total 15 ml Result Diagram: 05/20/1735005/20/17350 Objective Remarks Abd:soft,nt,nd Dressing intact Hammond with clear urine 05/20 Abd:soft,nt,nd Dressing in place Wound: clean and dry Hammond out Medications and IVs Current Medications Medications (Trade) Dose Ordered Sig/Vishal Route Start Time Stop Time Status Last Admin (Lopressor) 25 mg PAPER CUP MACHINE TENDER PRN PO 05/18/17 06:00 05/21/17 05:59 (Betadine 5% Antisepsis Kit) 1 applic PAPER CUP MACHINE TENDER PRN EACH NARE 05/18/17 06:00 05/21/17 05:59 05/18/17 06:26 (Chlorhexidine 2% Cloth) 3 pack PAPER CUP MACHINE TENDER PRN TOPICAL 05/18/17 06:00 05/21/17 05:59 05/18/17 05:40 (NovoLIN R INJ) See Protocol Table ... PAPER CUP MACHINE TENDER PRN SQ 05/18/17 06:00 05/21/17 05:59 (Morphine Inj) 2 mg Q3H PRN IV PUSH 05/18/17 11:30 (Tylenol 650 Mg/ 20 ml Liq) 650 mg Q6H PRN PO 05/18/17 11:30 (Lovenox Inj) 30 mg Q24H SQ 05/19/17 07:00 (Zofran Inj) 4 mg Q6HR PRN IV PUSH 05/18/17 11:30 05/19/17 09:05 (Neurontin) 300 mg TID PO 05/18/17 13:00 05/19/17 18:22 (Lioresal) 10 mg Q8HR PRN PO 05/18/17 12:00 (Albuterol Neb) 2.5 mg Q4HR NEB NEB 05/18/17 12:00 05/20/17 08:40 (Zyloprim) 100 mg DAILY PO 05/19/17 09:00 05/19/17 09:04 (Prinivil) 5 mg DAILY PO 05/19/17 09:00 (Colace) 100 mg BID PO 05/18/17 21:00 05/19/17 21:23 (Aldactone) 25 mg DAILY PO 05/19/17 09:00 05/19/17 09:04 (Coreg) 6.25 mg Q12HR PO 05/18/17 21:00 ([place] 10-325 Mg) 1 tab Q6H PRN PO 05/18/17 11:30 05/19/17 18:23 (Lasix) 40 mg BID@,18 PO 05/18/17 18:00 05/19/17 18:22 (Morphine 1 Mg/ ml PODIATRIC SURGEON) 30 mg UNSCH IV 05/18/17 12:45 PODIATRIC SURGEON Dosage Infused (Pha) 1 Q8HR .XX 05/18/17 14:00 05/20/17 06:00 (Narcan Inj) 0.4 mg UNSCH PRN IV PUSH 05/18/17 12:45 (Benadryl Inj) 25 mg Q6H PRN IV PUSH 05/18/17 12:45 05/19/17 09:05 (Duoneb Neb) 1 ampule Q2HR NEB PRN INH 05/18/17 17:45 (Mag-Ox) 800 mg UNSCH PRN PO 05/18/17 17:45 Magnesium Sulfate 4 gm/Sodium Chloride 100 ml @ 50 mls/hr UNSCH PRN IV 05/18/17 17:45 Magnesium Sulfate 2 gm/Sodium Chloride 100 ml @ 50 mls/hr UNSCH PRN IV 05/18/17 17:45 Potassium Chloride 100 ml @ 50 mls/hr Q2H PRN IV 05/18/17 17:45 Potassium Chloride 100 ml @ 50 mls/hr Q2H PRN IV 05/18/17 17:45 Potassium Chloride 100 ml @ 50 mls/hr Q2H PRN IV 05/18/17 17:45 Potassium Chloride 100 ml @ 25 mls/hr UNSCH PRN IV 05/18/17 17:45 (K-Phos) 2,000 mg Q4H PRN PO 05/18/17 17:45 (K-Phos) 2,000 mg UNSCH PRN PO/TUBE 05/18/17 17:45 Potassium Phosphate 30 mmol/ Sodium Chloride 260 ml @ 42 mls/hr UNSCH PRN IV 05/18/17 17:45 Sodium Phosphate 30 mmol/Sodium Chloride 250 ml @ 42 mls/hr UNSCH PRN IV 05/18/17 17:45 Sodium Chloride 1,000 ml @ 50 mls/hr Q20H IV 05/20/17 08:45 Assessment and Plan Assessment and Plan Stable s/p right radical nephrectomy OOB to chair Pain control Ice chips Continue Lovenox 05/20 Stable s/p right radical nephrectomy POD#2 OOB to chair with ambulation Hammond out and voiding; d/c RADHA drain Clear liquid diet Continue Lovenox; dose changed to Q12 instead of daily. Transfer to floor Nolan Sage DO May 20, 2017 08:47
[2017-05-20] MEDS: CARVEDILOL 6.25 MG TAB PO SCH ×3 (09:00→21:00)
[2017-05-20] MEDS: LISINOPRIL 5 MG TAB PO SCH (09:00)
[2017-05-20] MEDS: SODIUM CHLOR 0.9% 1000 ML INJ 1,000 ML IV SCH (09:13)
[2017-05-20] MEDS: DOCUSATE SODIUM 100 MG CAP PO SCH ×2 (09:14→20:00)
[2017-05-20] MEDS: ALLOPURINOL 100 MG TAB PO SCH (09:14)
[2017-05-20] MEDS: SPIRONOLACTONE 25 MG TAB PO SCH (09:14)
[2017-05-20] MEDS: FUROSEMIDE 40 MG TAB PO SCH ×2 (09:14→17:21)
[2017-05-20] MEDS: GABAPENTIN 300 MG CAP PO SCH ×3 (09:14→17:21)
[2017-05-20] MEDS: ENOXAPARIN SODIUM 30 MG/0.3 ML SYRINGE SQ SCH ×2 (09:15→20:00)
[2017-05-20] MEDS: diphenhydrAMINE HCL 50 MG/ML VIAL IV PUSH PRN (12:04)
[2017-05-21] VITALS (10 sets, daily range): BP systolic 85–112; BP diastolic 52–63; PULSE 85–118; RESP 14–27; TEMP 95.9–98.5; O2SAT 94–99
[2017-05-21] MEDS: RESP: ALBUTEROL 2.5 MG/3 ML NEB (SCH) NEB ×6 (03:34→23:50)
[2017-05-21 05:44] LABS: AUTOMATED NEUTROPHIL # 6.6 TH/MM3 (1.8-7.7); BASOPHIL % 0.5 % (0.0-2.0); EOSINOPHIL # 0.3 TH/MM3 (0-0.4); EOSINOPHIL % 3.3 % (0.0-4.0); HEMATOCRIT 36.8 % (39.0-51.0); HEMO FLAGS DIFF FINAL; LYMPH % 13.9 % (9.0-44.0); LYMPHOCYTE # 1.3 TH/MM3 (1.0-4.8); MEAN CELL VOLUME 82.9 FL (80.0-100.0); MEAN CORPUSCULAR HGB CONC 31.4 % (32.0-36.0); MONO % 8.8 % (0.0-8.0); NEUT % 73.5 % (16.0-70.0); PLATELET COUNT 116 TH/MM3 (150-450); RED BLOOD COUNT 4.44 MIL/MM3 (4.50-5.90); RED CELL DISTRIBUTION WIDTH 22.7 % (11.6-17.2); WHITE BLOOD COUNT 9.1 TH/MM3 (4.0-11.0)
[2017-05-21] MEDS: PCA - TOTAL MG MORPHINE DELIVERED PER SHIFT SCH (06:00)
[2017-05-21 06:06] LABS: ANION GAP 5 MEQ/L (5-15); AST (GOT) 55 U/L (15-37); BICARBONATE 32.6 MEQ/L (21.0-32.0); BLOOD UREA NITROGEN 21 MG/DL (7-18); CHLORIDE 95 MEQ/L (98-107); GLOMERULAR FILTRATION RATE 50 ML/MIN (>89); MAGNESIUM 2.1 MG/DL (1.5-2.5); POTASSIUM 4.8 MEQ/L (3.5-5.1); SODIUM (NA) 133 MEQ/L (136-145)
[2017-05-21 06:08] LABS: ALT (GPT) 21 U/L (12-78)
[2017-05-21 06:09] LABS: ALKALINE PHOSPHATASE 138 U/L (45-117); TOTAL BILIRUBIN ADULT 1.1 MG/DL (0.2-1.0)
[2017-05-21] MEDS: DOCUSATE SODIUM 100 MG CAP PO SCH ×2 (08:42→20:17)
[2017-05-21] MEDS: ALLOPURINOL 100 MG TAB PO SCH (08:42)
[2017-05-21] MEDS: SPIRONOLACTONE 25 MG TAB PO SCH (08:42)
[2017-05-21] MEDS: ENOXAPARIN SODIUM 30 MG/0.3 ML SYRINGE SQ SCH ×2 (08:43→20:19)
[2017-05-21] MEDS: CARVEDILOL 6.25 MG TAB PO SCH ×2 (08:43→20:18)
[2017-05-21] MEDS: GABAPENTIN 300 MG CAP PO SCH ×3 (08:43→16:56)
[2017-05-21] MEDS: FUROSEMIDE 40 MG TAB PO SCH ×2 (08:44→16:57)
[2017-05-21] MEDS: LISINOPRIL 5 MG TAB PO SCH (08:44)
--- NOTE | 2017-05-21 09:09 | HHI.PR ---
Subjective Patient symptoms today Pt seen and examined. OOB in chair. Tolerating liquid diet. Objective Vital Signs Vital Signs Date Time Temp Pulse Resp B/P (MAP) Pulse Ox O2 Delivery O2 Flow Rate FiO2 05/21/17 08:07 99 21 05/21/17 07:00 95 Nasal Cannula 2.00 05/21/17 06:00 19 05/21/17 04:00 118 05/21/17 04:00 98.2 118 14 85/63 (70) 96 05/21/17 00:00 98.5 88 17 90/52 (65) 99 05/21/17 00:00 88 05/20/17 22:00 20 05/20/17 20:00 106 05/20/17 20:00 98.2 106 14 105/56 (72) 96 05/20/17 19:29 99 21 05/20/17 19:00 96 Room Air 05/20/17 16:00 109 05/20/17 16:00 98.1 109 17 99/60 (73) 100 05/20/17 14:00 16 05/20/17 12:00 105 05/20/17 12:00 98.3 105 18 113/51 (71) 92 05/20/17 11:54 18 05/20/17 11:49 17 05/20/17 11:31 93 21 05/20/17 10:00 110 Intake & Output 05/21/17 05/21/17 07:00 19:00 Intake Total 820 ml Output Total 850 ml Balance -30 ml Intake Oral 200 ml IV Total 620 ml Output Urine Total 850 ml Result Diagram: 05/21/1752205/21/17522 Objective Remarks Abd:soft,nt,nd Dressing intact Desai with clear urine 05/20 Abd:soft,nt,nd Dressing in place Wound: clean and dry Desai out Abd:soft,incisional tenderness is improving, NT Wound:clean and dry Voiding now that desai is out Ext: neg C/C/E Medications and IVs Current Medications Medications (Trade) Dose Ordered Sig/Vishal Route Start Time Stop Time Status Last Admin (Morphine Inj) 2 mg Q3H PRN IV PUSH 05/18/17 11:30 (Tylenol 650 Mg/ 20 ml Liq) 650 mg Q6H PRN PO 05/18/17 11:30 (Zofran Inj) 4 mg Q6HR PRN IV PUSH 05/18/17 11:30 05/19/17 09:05 (Neurontin) 300 mg TID PO 05/18/17 13:00 05/21/17 08:43 (Lioresal) 10 mg Q8HR PRN PO 05/18/17 12:00 (Albuterol Neb) 2.5 mg Q4HR NEB NEB 05/18/17 12:00 05/21/17 08:06 (Zyloprim) 100 mg DAILY PO 05/19/17 09:00 05/21/17 08:42 (Prinivil) 5 mg DAILY PO 05/19/17 09:00 (Colace) 100 mg BID PO 05/18/17 21:00 05/21/17 08:42 (Aldactone) 25 mg DAILY PO 05/19/17 09:00 05/21/17 08:42 (Coreg) 6.25 mg Q12HR PO 05/18/17 21:00 ([place] 10-325 Mg) 1 tab Q6H PRN PO 05/18/17 11:30 05/19/17 18:23 (Morphine 1 Mg/ ml FLASH RANGING CREWMEMBER) 30 mg UNSCH IV 05/18/17 12:45 05/20/17 11:49 FLASH RANGING CREWMEMBER Dosage Infused (Pha) 1 Q8HR .XX 05/18/17 14:00 05/20/17 22:00 (Narcan Inj) 0.4 mg UNSCH PRN IV PUSH 05/18/17 12:45 (Benadryl Inj) 25 mg Q6H PRN IV PUSH 05/18/17 12:45 05/20/17 12:04 (Duoneb Neb) 1 ampule Q2HR NEB PRN INH 05/18/17 17:45 (Mag-Ox) 800 mg UNSCH PRN PO 05/18/17 17:45 Magnesium Sulfate 4 gm/Sodium Chloride 100 ml @ 50 mls/hr UNSCH PRN IV 05/18/17 17:45 Magnesium Sulfate 2 gm/Sodium Chloride 100 ml @ 50 mls/hr UNSCH PRN IV 05/18/17 17:45 Potassium Chloride 100 ml @ 50 mls/hr Q2H PRN IV 05/18/17 17:45 Potassium Chloride 100 ml @ 50 mls/hr Q2H PRN IV 05/18/17 17:45 Potassium Chloride 100 ml @ 50 mls/hr Q2H PRN IV 05/18/17 17:45 Potassium Chloride 100 ml @ 25 mls/hr UNSCH PRN IV 05/18/17 17:45 (K-Phos) 2,000 mg Q4H PRN PO 05/18/17 17:45 (K-Phos) 2,000 mg UNSCH PRN PO/TUBE 05/18/17 17:45 Potassium Phosphate 30 mmol/ Sodium Chloride 260 ml @ 42 mls/hr UNSCH PRN IV 05/18/17 17:45 Sodium Phosphate 30 mmol/Sodium Chloride 250 ml @ 42 mls/hr UNSCH PRN IV 05/18/17 17:45 (Lovenox Inj) 30 mg Q12HR SQ 05/20/17 09:00 05/21/17 08:43 (Lasix) 20 mg BID@09,18 PO 05/20/17 09:00 05/21/17 08:44 Sodium Chloride 1,000 ml @ 30 mls/hr Q24H IV 05/20/17 08:45 05/20/17 09:13 Assessment and Plan Assessment and Plan Stable s/p right radical nephrectomy OOB to chair Pain control Ice chips Continue Lovenox 05/20 Stable s/p right radical nephrectomy POD#2 OOB to chair with ambulation Desai out and voiding; d/c RADHA drain Clear liquid diet Continue Lovenox; dose changed to Q12 instead of daily. Transfer to floor 05/21 Stable s/p right radical nephrectomy POD#3 Check H/H due do drop from 13 to 11 OOB/Ambulate D/C on Q pump and FLASH RANGING CREWMEMBER Continue liquid diet for now Nolan Sage DO May 21, 2017 09:09
[2017-05-21] MEDS: ACETAMINOPHEN/HYDROcodone 325 MG/10 MG TAB PO PRN ×2 (09:49→16:57)
--- NOTE | 2017-05-21 11:56 | HHI.PR ---
Subjective Remarks in no distress. has some pain to the incision site. no chest pain or nausea. afebrile. Objective Vitals Vital Signs Date Time Temp Pulse Resp B/P (MAP) Pulse Ox O2 Delivery O2 Flow Rate FiO2 05/21/17 10:49 20 05/21/17 08:07 99 21 05/21/17 08:00 105 05/21/17 08:00 98.3 96 27 98/61 (73) 96 05/21/17 07:00 95 Nasal Cannula 2.00 05/21/17 06:00 19 05/21/17 04:00 118 05/21/17 04:00 98.2 118 14 85/63 (70) 96 05/21/17 00:00 98.5 88 17 90/52 (65) 99 05/21/17 00:00 88 05/20/17 22:00 20 05/20/17 20:00 106 05/20/17 20:00 98.2 106 14 105/56 (72) 96 05/20/17 19:29 99 21 05/20/17 19:00 96 Room Air 05/20/17 16:00 109 05/20/17 16:00 98.1 109 17 99/60 (73) 100 05/20/17 14:00 16 05/20/17 12:00 105 05/20/17 12:00 98.3 105 18 113/51 (71) 92 I/O 05/20/17 05/20/17 05/20/17 05/21/17 05/21/17 05/21/17 07:00 15:00 23:00 07:00 15:00 23:00 Intake Total 4780 ml 430 ml 820 ml Output Total 4000 ml 15 ml 850 ml Balance 780 ml -15 ml 430 ml -30 ml Intake Oral 200 ml IV Total 4780 ml 430 ml 620 ml Output Urine Total 4000 ml 850 ml Drainage Total 15 ml # Voids 2 Result Diagram: 05/21/17 0523 05/21/17 0523 Imaging Last Impressions Chest X-Ray 05/18/17 0000 Signed Impressions: Service Date/Time: Thursday, May 18, 2017 11:56 - CONCLUSION: 1. Right central line in superior vena cava without pneumothorax. Raphael Oliveira MD Objective Remarks GENERAL: This is a well-nourished, well-developed patient, in no apparent distress. CARDIOVASCULAR: Regular rate and regular rhythm without murmurs, gallops, or rubs. RESPIRATORY: Clear to auscultation. Breath sounds equal bilaterally. No wheezes , rales, or rhonchi. GASTROINTESTINAL: Abdomen soft, non-tender, nondistended. Normal, active bowel sounds MUSCULOSKELETAL: Extremities without clubbing, cyanosis, or edema. NEURO: Alert & Oriented x4 to person, place, time, situation. Moves all ext x4 Medications and IVs Current Medications Lactated Ringer's 1,000 ml @ 30 mls/hr Q24H PRN IV SEE LABEL COMMENTS Last administered on 05/18/17 06:20; Start 05/18/17 at 06:00; Stop 05/18/17 at 12:30 ; Status DC Sodium Chloride 500 ml @ 30 mls/hr [id number] PRN IV SEE LABEL COMMENTS; Start at 06:00; Stop 05/18/17 at 12:30; Status DC Metoprolol Tartrate (Lopressor) 25 mg SOCIAL MEDIA STRATEGIST PRN PO SEE LABEL COMMENTS; Start 05/18/17 at 06:00; Stop 05/21/17 at 05:59; Status DC Povidone Iodine (Betadine 5% Antisepsis Kit) 1 applic SOCIAL MEDIA STRATEGIST PRN EACH NARE SEE LABEL COMMENTS Last administered on 05/18/17 06:26; Start 05/18/17 at 06:00 ; Stop 05/21/17 at 05:59; Status DC Chlorhexidine Gluconate (Chlorhexidine 2% Cloth) 3 pack SOCIAL MEDIA STRATEGIST PRN TOPICAL SEE LABEL COMMENTS Last administered on 05/18/17 05:40; Start 05/18/17 at 06:00 ; Stop 05/21/17 at 05:59; Status DC Insulin Human Regular (NovoLIN R INJ) See Protocol Table ... SOCIAL MEDIA STRATEGIST PRN SQ SEE PROTOCOL TABLE; Start 05/18/17 at 06:00; Stop 05/21/17 at 05:59; Status DC Cefazolin Sodium 1000 mg/Sodium Chloride 100 ml @ 200 mls/hr SOCIAL MEDIA STRATEGIST IV Last administered on 05/18/17 06:26; Start 05/18/17 at 06:00; Stop 05/18/17 at 12:31 ; Status DC Enoxaparin Sodium (Lovenox Inj) 30 mg SOCIAL MEDIA STRATEGIST SQ Last administered on 06:26; Start 05/18/17 at 06:00; Stop 05/18/17 at 12:00; Status DC Bupivacaine HCl (Marcaine Pf 0.5% Inj) 150 ml STK-MED ONCE .ROUTE Last administered on 05/18/17 10:30; Start 05/18/17 at 10:34; Stop 05/18/17 at 10:35 ; Status DC Bupivacaine HCl (Marcaine Pf 0.5% Inj) 210 ml ONCE ONCE INFIL Last administered on 05/18/17 10:30; Start 05/18/17 at 12:00; Stop 05/18/17 at 12:01 ; Status DC Cefazolin Sodium 1000 mg/Sodium Chloride 100 ml @ 200 mls/hr Q8H IV Last administered on 05/19/17 04:42; Start 05/18/17 at 14:00; Stop 05/19/17 at 06:29 ; Status DC Morphine Sulfate (Morphine Inj) 2 mg Q3H PRN IV PUSH pain 6-10;IF NPO; Start at 11:30 Potassium Chloride/Sodium Chloride 1,000 ml @ 125 mls/hr Q8H IV Last administered on 05/20/17 05:15; Start 05/18/17 at 12:00; Stop 05/20/17 at 06:56 ; Status DC Acetaminophen (Tylenol 650 Mg/ 20 ml Liq) 650 mg Q6H PRN PO pain 1-5 or temp> 100.6; Start 05/18/17 at 11:30 Enoxaparin Sodium (Lovenox Inj) 30 mg Q24H SQ ; Start 05/19/17 at 07:00; Stop at 08:45; Status DC Ondansetron HCl (Zofran Inj) 4 mg Q6HR PRN IV PUSH n/v Last administered on 09:05; Start 05/18/17 at 11:30 Gabapentin (Neurontin) 300 mg TID PO Last administered on 05/21/17 08:43; Start 05/18/17 at 13:00 Baclofen (Lioresal) 10 mg Q8HR PRN PO muscle spasm; Start 05/18/17 at 12:00 Albuterol Sulfate (Albuterol Neb) 2.5 mg Q4HR NEB NEB Last administered on 08:06; Start 05/18/17 at 12:00 Allopurinol (Zyloprim) 100 mg DAILY PO Last administered on 05/21/17 08:42; Start 05/19/17 at 09:00 Lisinopril (Prinivil) 5 mg DAILY PO ; Start 05/19/17 at 09:00 Docusate Sodium (Colace) 100 mg BID PO Last administered on 05/21/17 08:42; Start 05/18/17 at 21:00 Spironolactone (Aldactone) 25 mg DAILY PO Last administered on 05/21/17 08:42 ; Start 05/19/17 at 09:00 Carvedilol (Coreg) 6.25 mg Q12HR PO ; Start 05/18/17 at 21:00 Acetaminophen/ Hydrocodone Bitart ([place] 10-325 Mg) 1 tab Q6H PRN PO pain 6-10 Last administered on 05/21/17 09:49; Start 05/18/17 at 11:30 Furosemide (Lasix) 40 mg BID@,18 PO Last administered on 05/19/17 18:22; Start 05/18/17 at 18:00; Stop 05/20/17 at 08:45; Status DC Promethazine HCl (*PHENERGAN INJ PERIprocedural ONLY) 25 mg STK-MED ONCE .ROUTE Last administered on 05/18/17 11:45; Start 05/18/17 at 11:43; Stop 05/18/17 at 11:44; Status DC Morphine Sulfate (Morphine 1 Mg/ ml INCIDENT ANALYST) 30 mg STK-MED ONCE .ROUTE Last administered on 05/18/17 12:25; Start 05/18/17 at 12:19; Stop 05/18/17 at 12:20 ; Status DC Morphine Sulfate (Morphine 1 Mg/ ml INCIDENT ANALYST) 30 mg UNSCH IV Last administered on 11:49; Start 05/18/17 at 12:45; Stop 05/21/17 at 09:07; Status DC INCIDENT ANALYST Dosage Infused (Pha) 1 Q8HR .XX Last administered on 05/20/17 22:00; Start 05/18/17 at 14:00; Stop 05/21/17 at 09:07; Status DC Naloxone HCl (Narcan Inj) 0.4 mg UNSCH PRN IV PUSH RESPIRATORY RATE LESS THAN 10; Start 05/18/17 at 12:45; Stop 05/21/17 at 09:07; Status DC Diphenhydramine HCl (Benadryl Inj) 25 mg Q6H PRN IV PUSH ITCHING Last administered on 05/20/17t 12:04; Start 05/18/17 at 12:45 Albuterol/ Ipratropium (Duoneb Neb) 1 ampule Q2HR NEB PRN INH WHEEZING; Start 05/18/17 at 17:45 Magnesium Oxide (Mag-Ox) 800 mg UNSCH PRN PO For Magnesium 1.2 - 1.6 mg/dL; Start 05/18/17 at 17:45 Magnesium Sulfate 4 gm/Sodium Chloride 100 ml @ 50 mls/hr UNSCH PRN IV For Magnesium 0.9 - 1.1 mg/dL; Start 05/18/17 at 17:45 Magnesium Sulfate 2 gm/Sodium Chloride 100 ml @ 50 mls/hr UNSCH PRN IV For Magnesium 1.2 - 1.6 mg/dL; Start 05/18/17 at 17:45 Potassium Chloride 100 ml @ 50 mls/hr Q2H PRN IV For Potassium 2.8 - 3.2 mEq/L ; Start 05/18/17 at 17:45 Potassium Chloride 100 ml @ 50 mls/hr Q2H PRN IV For Potassium 3.3 - 3.5 mEq/L ; Start 05/18/17 at 17:45 Potassium Chloride 100 ml @ 50 mls/hr Q2H PRN IV For Potassium 2.8 - 3.2 mEq/L ; Start 05/18/17 at 17:45 Potassium Chloride 100 ml @ 25 mls/hr UNSCH PRN IV For Potassium 3.3 - 3.5 mEq /L; Start 05/18/17 at 17:45 Potassium Phosphate (K-Phos) 2,000 mg Q4H PRN PO For Phosphorus < 2.5 mg/dL; Start 05/18/17 at 17:45 Potassium Phosphate (K-Phos) 2,000 mg UNSCH PRN PO/TUBE SEE LABEL COMMENTS; Start 05/18/17 at 17:45 Potassium Phosphate 30 mmol/ Sodium Chloride 260 ml @ 42 mls/hr UNSCH PRN IV SEE LABEL COMMENTS; Start 05/18/17 at 17:45 Sodium Phosphate 30 mmol/Sodium Chloride 250 ml @ 42 mls/hr UNSCH PRN IV For Phosphorus < 2.5 mg/dL; Start 05/18/17 at 17:45 Lactated Ringer's 1,000 ml @ 500 mls/hr Q2H IV Last administered on 05/19/17 21:29; Start 05/19/17 at 14:00; Stop 05/20/17 at 06:57; Status DC Sodium Chloride 1,000 ml @ 50 mls/hr Q20H IV ; Start 05/20/17 at 08:45; Stop at 08:49; Status DC Enoxaparin Sodium (Lovenox Inj) 30 mg Q12HR SQ Last administered on 05/21/17 08:43; Start 05/20/17 at 09:00 Furosemide (Lasix) 20 mg BID@09,18 PO Last administered on 05/21/17 08:44; Start 05/20/17 at 09:00 Sodium Chloride 1,000 ml @ 30 mls/hr Q24H IV Last administered on 05/20/17 09 :13; Start 05/20/17 at 08:45 A/P Assessment and Plan A/P s/p Right nephrectomy -management per Urology Cardiomyopathy, EF 20% Hypertension Hyperlipidemia - Continue home medications of Lasix 40 twice a day, Aldactone 25 daily, and lisinopril 5 mg daily, Coreg 6.25 twice a day, and statin -cardiology evaluated and signed off. anemia- post-op monitor H/H closely. Fibromyalgia Chronic pain syndrome - Continue home gabapentin Acute on chronic kidney disease, unknown stage - monitor urine output and renal function closely. - Diuresis as above COPD Tobacco use - wean o2 by [place] for goal spo2 > 90% - aggressive pulmonary toilet - PT consult - nebs prn History of DVT History of LV Thrombus - Prophylactic anticoagulation currently and would recommend full anticoagulation as soon as deemed safe by Urology. d/w . Amor Flores MD May 21, 2017 11:56
[2017-05-21 12:03] LABS: HEMATOCRIT 33.4 % (39.0-51.0); REVIEW FLAG FINAL
[2017-05-21] MEDS: BACLOFEN 10 MG TAB PO PRN (16:56)
[2017-05-21] MEDS: SODIUM CHLOR 0.9% 1000 ML INJ 1,000 ML IV SCH (16:58)
[2017-05-21] MEDS: ONDANSETRON HCL 4 MG/2 ML VIAL IV PUSH PRN (23:06)
[2017-05-22 00:30] VITALS: BP 101/62; PULSE 99; RESP 18; O2SAT 97
[2017-05-22] MEDS: ACETAMINOPHEN/HYDROcodone 325 MG/10 MG TAB PO PRN ×5 (00:45→21:47)
[2017-05-22] MEDS: diphenhydrAMINE HCL 50 MG/ML VIAL IV PUSH PRN (00:48)
[2017-05-22] MEDS: RESP: ALBUTEROL 2.5 MG/3 ML NEB (SCH) NEB ×3 (03:41→11:46)
[2017-05-22] MEDS: BACLOFEN 10 MG TAB PO PRN (06:28)
[2017-05-22 07:05] LABS: HEMATOCRIT 33.8 % (39.0-51.0); MEAN CELL VOLUME 81.6 FL (80.0-100.0); MEAN CORPUSCULAR HEMOGLOBIN 26.3 PG (27.0-34.0); MEAN CORPUSCULAR HGB CONC 32.3 % (32.0-36.0); PLATELET COUNT 143 TH/MM3 (150-450); RED BLOOD COUNT 4.15 MIL/MM3 (4.50-5.90); RED CELL DISTRIBUTION WIDTH 22.3 % (11.6-17.2); REVIEW FLAG FINAL; WHITE BLOOD COUNT 7.3 TH/MM3 (4.0-11.0)
[2017-05-22 07:14] LABS: BICARBONATE 32.9 MEQ/L (21.0-32.0); POTASSIUM 3.9 MEQ/L (3.5-5.1)
[2017-05-22 08:00] VITALS: BP 95/55; PULSE 73; RESP 16; TEMP 96.7; O2SAT 95
[2017-05-22 08:46] VITALS: O2SAT 96
[2017-05-22] MEDS: DOCUSATE SODIUM 100 MG CAP PO SCH ×3 (09:26→21:46)
[2017-05-22] MEDS: SPIRONOLACTONE 25 MG TAB PO SCH (09:26)
[2017-05-22] MEDS: CARVEDILOL 6.25 MG TAB PO SCH ×2 (09:26→21:00)
[2017-05-22] MEDS: GABAPENTIN 300 MG CAP PO SCH ×3 (09:26→17:28)
[2017-05-22] MEDS: ENOXAPARIN SODIUM 30 MG/0.3 ML SYRINGE SQ SCH ×2 (09:26→21:46)
[2017-05-22] MEDS: ALLOPURINOL 100 MG TAB PO SCH (09:27)
[2017-05-22] MEDS: FUROSEMIDE 40 MG TAB PO SCH ×2 (09:27→17:29)
--- NOTE | 2017-05-22 09:44 | HHI.PR ---
Subjective Remarks resting comfortably with no distress. complaining of some pain and itching to the site of the surgery. no fever. Objective Vitals Vital Signs Date Time Temp Pulse Resp B/P (MAP) Pulse Ox O2 Delivery O2 Flow Rate FiO2 05/22/17 08:46 96 21 05/22/17 08:00 96.7 73 16 95/55 (68) 95 05/22/17 00:30 99 18 101/62 (75) 97 05/21/17 23:53 94 05/21/17 20:00 97.9 99 18 112/59 (76) 98 05/21/17 16:00 96.3 92 17 103/55 (71) 96 05/21/17 15:16 97 21 05/21/17 14:00 95.9 85 16 95/55 (68) 97 05/21/17 12:00 90 05/21/17 12:00 98.4 90 22 107/60 (76) 98 05/21/17 10:49 20 I/O 05/21/17 05/21/17 05/21/17 05/22/17 05/22/17 05/22/17 07:00 15:00 23:00 07:00 15:00 23:00 Intake Total 820 ml 640 ml 240 ml Output Total 850 ml 1000 ml 800 ml Balance -30 ml -360 ml -560 ml Intake Oral 200 ml 640 ml 240 ml IV Total 620 ml Output Urine Total 850 ml 1000 ml 800 ml Result Diagram: 05/22/17 0605 05/22/17 0605 Imaging Last Impressions Chest X-Ray 05/18/17 0000 Signed Impressions: Service Date/Time: Thursday, May 18, 2017 11:56 - CONCLUSION: 1. Right central line in superior vena cava without pneumothorax. Raphael Oliveira MD Objective Remarks GENERAL: This is a well-nourished, well-developed patient, in no apparent distress. CARDIOVASCULAR: Regular rate and regular rhythm without murmurs, gallops, or rubs. RESPIRATORY: Clear to auscultation. Breath sounds equal bilaterally. No wheezes , rales, or rhonchi. GASTROINTESTINAL: Abdomen soft, non-tender, nondistended. Normal, active bowel sounds MUSCULOSKELETAL: Extremities without clubbing, cyanosis, or edema. NEURO: Alert & Oriented x4 to person, place, time, situation. Moves all ext x4 Medications and IVs Current Medications Lactated Ringer's 1,000 ml @ 30 mls/hr Q24H PRN IV SEE LABEL COMMENTS Last administered on 05/18/17 06:20; Start 05/18/17 at 06:00; Stop 05/18/17 at 12:30 ; Status DC Sodium Chloride 500 ml @ 30 mls/hr [id number] PRN IV SEE LABEL COMMENTS; Start at 06:00; Stop 05/18/17 at 12:30; Status DC Metoprolol Tartrate (Lopressor) 25 mg THORACIC SURGEON PRN PO SEE LABEL COMMENTS; Start 05/18/17 at 06:00; Stop 05/21/17 at 05:59; Status DC Povidone Iodine (Betadine 5% Antisepsis Kit) 1 applic [employer]ON PRN EACH NARE SEE LABEL COMMENTS Last administered on 05/18/17 06:26; Start 05/18/17 at 06:00 ; Stop 05/21/17 at 05:59; Status DC Chlorhexidine Gluconate (Chlorhexidine 2% Cloth) 3 pack [employer] PRN TOPICAL SEE LABEL COMMENTS Last administered on 05/18/17 05:40; Start 05/18/17 at 06:00 ; Stop 05/21/17 at 05:59; Status DC Insulin Human Regular (NovoLIN R INJ) See Protocol Table ... [employer]OR[employer]GEON PRN SQ SEE PROTOCOL TABLE; Start 05/18/17 at 06:00; Stop 05/21/17 at 05:59; Status DC Cefazolin Sodium 1000 mg/Sodium Chloride 100 ml @ 200 mls/hr [employer]ON IV Last administered on 05/18/17 06:26; Start 05/18/17 at 06:00; Stop 05/18/17 at 12:31 ; Status DC Enoxaparin Sodium (Lovenox Inj) 30 mg [employer]OR[employer]ON SQ Last administered on 06:26; Start 05/18/17 at 06:00; Stop 05/18/17 at 12:00; Status DC Bupivacaine HCl (Marcaine Pf 0.5% Inj) 150 ml STK-MED ONCE .ROUTE Last administered on 05/18/17 10:30; Start 05/18/17 at 10:34; Stop 05/18/17 at 10:35 ; Status DC Bupivacaine HCl (Marcaine Pf 0.5% Inj) 210 ml ONCE ONCE INFIL Last administered on 05/18/17 10:30; Start 05/18/17 at 12:00; Stop 05/18/17 at 12:01 ; Status DC Cefazolin Sodium 1000 mg/Sodium Chloride 100 ml @ 200 mls/hr Q8H IV Last administered on 05/19/17 04:42; Start 05/18/17 at 14:00; Stop 05/19/17 at 06:29 ; Status DC Morphine Sulfate (Morphine Inj) 2 mg Q3H PRN IV PUSH pain 6-10;IF NPO Last administered on 05/21/17 21:09; Start 05/18/17 at 11:30 Potassium Chloride/Sodium Chloride 1,000 ml @ 125 mls/hr Q8H IV Last administered on 05/20/17 05:15; Start 05/18/17 at 12:00; Stop 05/20/17 at 06:56 ; Status DC Acetaminophen (Tylenol 650 Mg/ 20 ml Liq) 650 mg Q6H PRN PO pain 1-5 or temp> 100.6; Start 05/18/17 at 11:30 Enoxaparin Sodium (Lovenox Inj) 30 mg Q24H SQ ; Start 05/19/17 at 07:00; Stop at 08:45; Status DC Ondansetron HCl (Zofran Inj) 4 mg Q6HR PRN IV PUSH n/v Last administered on 23:06; Start 05/18/17 at 11:30 Gabapentin (Neurontin) 300 mg TID PO Last administered on 05/22/17 09:26; Start 05/18/17 at 13:00 Baclofen (Lioresal) 10 mg Q8HR PRN PO muscle spasm Last administered on 06:28; Start 05/18/17 at 12:00 Albuterol Sulfate (Albuterol Neb) 2.5 mg Q4HR NEB NEB Last administered on 08:41; Start 05/18/17 at 12:00 Allopurinol (Zyloprim) 100 mg DAILY PO Last administered on 05/22/17 09:27; Start 05/19/17 at 09:00 Lisinopril (Prinivil) 5 mg DAILY PO ; Start 05/19/17 at 09:00; Status Future Hold Docusate Sodium (Colace) 100 mg BID PO Last administered on 05/22/17 09:26; Start 05/18/17 at 21:00 Spironolactone (Aldactone) 25 mg DAILY PO Last administered on 05/22/17 09:26 ; Start 05/19/17 at 09:00 Carvedilol (Coreg) 6.25 mg Q12HR PO Last administered on 05/22/17 09:26; Start 05/18/17 at 21:00 Acetaminophen/ Hydrocodone Bitart (Spencer 10-325 Mg) 1 tab Q6H PRN PO pain 6-10 Last administered on 05/22/17 09:25; Start 05/18/17 at 11:30 Furosemide (Lasix) 40 mg BID@,18 PO Last administered on 05/19/17 18:22; Start 05/18/17 at 18:00; Stop 05/20/17 at 08:45; Status DC Promethazine HCl (*PHENERGAN INJ PERIprocedural ONLY) 25 mg STK-MED ONCE .ROUTE Last administered on 05/18/17 11:45; Start 05/18/17 at 11:43; Stop 05/18/17 at 11:44; Status DC Morphine Sulfate (Morphine 1 Mg/ ml [employer]ENDANT) 30 mg STK-MED ONCE .ROUTE Last administered on 05/18/17 12:25; Start 05/18/17 at 12:19; Stop 05/18/17 at 12:20 ; Status DC Morphine Sulfate (Morphine 1 Mg/ ml [employer] ATTENDANT) 30 mg UNSCH IV Last administered on 11:49; Start 05/18/17 at 12:45; Stop 05/21/17 at 09:07; Status DC SLEEPING [employer]ENDANT Dosage Infused (Pha) 1 Q8HR .XX Last administered on 05/20/17 22:00; Start 05/18/17 at 14:00; Stop 05/21/17 at 09:07; Status DC Naloxone HCl (Narcan Inj) 0.4 mg UNSCH PRN IV PUSH RESPIRATORY RATE LESS THAN 10; Start 05/18/17 at 12:45; Stop 05/21/17 at 09:07; Status DC Diphenhydramine HCl (Benadryl Inj) 25 mg Q6H PRN IV PUSH ITCHING Last administered on 05/22/17t 00:48; Start 05/18/17 at 12:45 Albuterol/ Ipratropium (Duoneb Neb) 1 ampule Q2HR NEB PRN INH WHEEZING; Start 05/18/17 at 17:45 Magnesium Oxide (Mag-Ox) 800 mg UNSCH PRN PO For Magnesium 1.2 - 1.6 mg/dL; Start 05/18/17 at 17:45 Magnesium Sulfate 4 gm/Sodium Chloride 100 ml @ 50 mls/hr UNSCH PRN IV For Magnesium 0.9 - 1.1 mg/dL; Start 05/18/17 at 17:45 Magnesium Sulfate 2 gm/Sodium Chloride 100 ml @ 50 mls/hr UNSCH PRN IV For Magnesium 1.2 - 1.6 mg/dL; Start 05/18/17 at 17:45 Potassium Chloride 100 ml @ 50 mls/hr Q2H PRN IV For Potassium 2.8 - 3.2 mEq/L ; Start 05/18/17 at 17:45 Potassium Chloride 100 ml @ 50 mls/hr Q2H PRN IV For Potassium 3.3 - 3.5 mEq/L ; Start 05/18/17 at 17:45 Potassium Chloride 100 ml @ 50 mls/hr Q2H PRN IV For Potassium 2.8 - 3.2 mEq/L ; Start 05/18/17 at 17:45 Potassium Chloride 100 ml @ 25 mls/hr UNSCH PRN IV For Potassium 3.3 - 3.5 mEq /L; Start 05/18/17 at 17:45 Potassium Phosphate (K-Phos) 2,000 mg Q4H PRN PO For Phosphorus < 2.5 mg/dL; Start 05/18/17 at 17:45 Potassium Phosphate (K-Phos) 2,000 mg UNSCH PRN PO/TUBE SEE LABEL COMMENTS; Start 05/18/17 at 17:45 Potassium Phosphate 30 mmol/ Sodium Chloride 260 ml @ 42 mls/hr UNSCH PRN IV SEE LABEL COMMENTS; Start 05/18/17 at 17:45 Sodium Phosphate 30 mmol/Sodium Chloride 250 ml @ 42 mls/hr UNSCH PRN IV For Phosphorus < 2.5 mg/dL; Start 05/18/17 at 17:45 Lactated Ringer's 1,000 ml @ 500 mls/hr Q2H IV Last administered on 05/19/17 21:29; Start 05/19/17 at 14:00; Stop 05/20/17 at 06:57; Status DC Sodium Chloride 1,000 ml @ 50 mls/hr Q20H IV ; Start 05/20/17 at 08:45; Stop at 08:49; Status DC Enoxaparin Sodium (Lovenox Inj) 30 mg Q12HR SQ Last administered on 05/22/17 09:26; Start 05/20/17 at 09:00 Furosemide (Lasix) 20 mg BID@09,18 PO Last administered on 05/22/17 09:27; Start 05/20/17 at 09:00 Sodium Chloride 1,000 ml @ 30 mls/hr Q24H IV Last administered on 05/21/17 16 :58; Start 05/20/17 at 08:45 A/P Assessment and Plan A/P s/p Right nephrectomy -management per Urology Cardiomyopathy, EF 20% Hypertension Hyperlipidemia - Continue home medications of Lasix 40 twice a day, Aldactone 25 daily, and lisinopril 5 mg daily, Coreg 6.25 twice a day, and statin -cardiology evaluated and signed off. anemia- post-op H/H fairly stable. monitor H/H closely. Fibromyalgia Chronic pain syndrome - Continue home gabapentin Acute on chronic kidney disease, unknown stage - monitor urine output and renal function closely. - Diuresis as above COPD Tobacco use - wean o2 by OK for goal spo2 > 90% - aggressive pulmonary toilet - PT consult - nebs prn History of DVT History of LV Thrombus - Prophylactic anticoagulation currently and would recommend full anticoagulation as soon as deemed safe by Urology. Amor Flores MD May 22, 2017 09:44
[2017-05-22] MEDS ORDERED: diphenhydrAMINE HCL 25 MG CAP PO PRN (09:45)
--- NOTE | 2017-05-22 11:39 | HHI.PR ---
Subjective Patient symptoms today Pt seen and examined. Feels well. Some pain. Objective Vital Signs Vital Signs Date Time Temp Pulse Resp B/P (MAP) Pulse Ox O2 Delivery O2 Flow Rate FiO2 05/22/17 08:46 96 21 05/22/17 08:00 96.7 73 16 95/55 (68) 95 05/22/17 00:30 99 18 101/62 (75) 97 05/21/17 23:53 94 05/21/17 20:00 97.9 99 18 112/59 (76) 98 05/21/17 16:00 96.3 92 17 103/55 (71) 96 05/21/17 15:16 97 21 05/21/17 14:00 95.9 85 16 95/55 (68) 97 05/21/17 12:00 90 05/21/17 12:00 98.4 90 22 107/60 (76) 98 Intake & Output 05/22/17 05/22/17 07:00 19:00 Intake Total 240 ml Output Total 1300 ml Balance -1060 ml Intake Oral 240 ml Output Urine Total 1300 ml Result Diagram: 05/22/1760405/22/17604 Objective Remarks Abd:soft,nt,nd Dressing intact Desai with clear urine 05/20 Abd:soft,nt,nd Dressing in place Wound: clean and dry Desai out Abd:soft,incisional tenderness is improving, NT Wound:clean and dry Voiding now that desai is out Ext: neg C/C/E 05/22 Abd:soft,nt,nd Wound: clean and dry Voiding well Ext: neg C/C/E Medications and IVs Current Medications Medications (Trade) Dose Ordered Sig/Vishal Route Start Time Stop Time Status Last Admin (Tylenol 650 Mg/ 20 ml Liq) 650 mg Q6H PRN PO 05/18/17 11:30 (Zofran Inj) 4 mg Q6HR PRN IV PUSH 05/18/17 11:30 05/21/17 23:06 (Neurontin) 300 mg TID PO 05/18/17 13:00 05/22/17 09:26 (Lioresal) 10 mg Q8HR PRN PO 05/18/17 12:00 05/22/17 06:28 (Albuterol Neb) 2.5 mg Q4HR NEB NEB 05/18/17 12:00 05/22/17 08:41 (Zyloprim) 100 mg DAILY PO 05/19/17 09:00 05/22/17 09:27 (Prinivil) 5 mg DAILY PO 05/19/17 09:00 Future Hold (Colace) 100 mg BID PO 05/18/17 21:00 05/22/17 09:26 (Aldactone) 25 mg DAILY PO 05/19/17 09:00 05/22/17 09:26 (Coreg) 6.25 mg Q12HR PO 05/18/17 21:00 05/22/17 09:26 (Benadryl Inj) 25 mg Q6H PRN IV PUSH 05/18/17 12:45 05/22/17 00:48 (Duoneb Neb) 1 ampule Q2HR NEB PRN INH 05/18/17 17:45 Sodium Phosphate 30 mmol/Sodium Chloride 250 ml @ 42 mls/hr UNSCH PRN IV 05/18/17 17:45 (Lovenox Inj) 30 mg Q12HR SQ 05/20/17 09:00 05/22/17 09:26 (Lasix) 20 mg BID@09,18 PO 05/20/17 09:00 05/22/17 09:27 (Benadryl) 25 mg Q6H PRN PO 05/22/17 09:45 (Burton 10-325 Mg) 1 tab Q4H PRN PO 05/22/17 11:30 UNV (Colace) 100 mg BID PO 05/22/17 11:30 UNV Assessment and Plan Assessment and Plan Stable s/p right radical nephrectomy OOB to chair Pain control Ice chips Continue Lovenox 05/20 Stable s/p right radical nephrectomy POD#2 OOB to chair with ambulation Desai out and voiding; d/c RADHA drain Clear liquid diet Continue Lovenox; dose changed to Q12 instead of daily. Transfer to floor 05/21 Stable s/p right radical nephrectomy POD#3 Check H/H due do drop from 13 to 11 OOB/Ambulate D/C on Q pump and [employer] Continue liquid diet for now 05/22 Stable s/p right radical nx POD#4 OOB/Ambulate Heart healthy diet Stop MS04 Narco for pain Nolan Sage DO May 22, 2017 11:39
[2017-05-22 12:00] VITALS: BP 92/55; PULSE 78; RESP 16; TEMP 97.7; O2SAT 91
[2017-05-22] MEDS ORDERED: ACETAMINOPHEN 650 MG/20.3 ML UDC PO PRN (12:00)
[2017-05-22 16:00] VITALS: BP 90/54; PULSE 86; RESP 16; TEMP 96.1; O2SAT 94
[2017-05-22 20:19] VITALS: BP 93/52; PULSE 81; RESP 17; TEMP 97.3; O2SAT 93
[2017-05-23 00:23] VITALS: BP 100/53; PULSE 80; RESP 20; TEMP 96; O2SAT 95
[2017-05-23 08:00] VITALS: BP 111/79; PULSE 107; RESP 17; TEMP 98.8; O2SAT 95
--- NOTE | 2017-05-23 08:14 | HHI.PR ---
Subjective Patient symptoms today Pt feels well. No complaints. Pain is controlled. Passing gas but no BM as yet. Objective Vital Signs Vital Signs Date Time Temp Pulse Resp B/P (MAP) Pulse Ox O2 Delivery O2 Flow Rate FiO2 05/23/17 00:23 96.0 80 20 100/53 (69) 95 05/22/17 20:19 97.3 81 17 93/52 (66) 93 05/22/17 16:00 96.1 86 16 90/54 (66) 94 05/22/17 13:55 Room Air 2.00 05/22/17 12:00 97.7 78 16 92/55 (67) 91 05/22/17 08:46 96 21 Intake & Output 05/23/17 05/23/17 07:00 19:00 Intake Total 670 ml Balance 670 ml Intake Oral 670 ml # Voids 4 # Bowel Movements 2 Result Diagram: 05/22/1760405/22/17604 Objective Remarks Abd:soft,nt,nd Dressing intact Desai with clear urine 05/20 Abd:soft,nt,nd Dressing in place Wound: clean and dry Desai out Abd:soft,incisional tenderness is improving, NT Wound:clean and dry Voiding now that desai is out Ext: neg C/C/E 05/22 Abd:soft,nt,nd Wound: clean and dry Voiding well Ext: neg C/C/E 05/23 Abd:soft,nt,nd Wound: clean and dry Voiding well Ext: neg C/C/E Medications and IVs Current Medications Medications (Trade) Dose Ordered Sig/Vishal Route Start Time Stop Time Status Last Admin (Zofran Inj) 4 mg Q6HR PRN IV PUSH 05/18/17 11:30 05/21/17 23:06 (Lioresal) 10 mg Q8HR PRN PO 05/18/17 12:00 05/22/17 06:28 (Zyloprim) 100 mg DAILY PO 05/19/17 09:00 05/22/17 09:27 (Prinivil) 5 mg DAILY PO 05/19/17 09:00 Future Hold (Aldactone) 25 mg DAILY PO 05/19/17 09:00 05/22/17 09:26 (Coreg) 6.25 mg Q12HR PO 05/18/17 21:00 05/22/17 09:26 (Benadryl Inj) 25 mg Q6H PRN IV PUSH 05/18/17 12:45 05/22/17 00:48 (Duoneb Neb) 1 ampule Q2HR NEB PRN INH 05/18/17 17:45 Sodium Phosphate 30 mmol/Sodium Chloride 250 ml @ 42 mls/hr UNSCH PRN IV 05/18/17 17:45 (Lovenox Inj) 30 mg Q12HR SQ 05/20/17 09:00 05/22/17 21:46 (Lasix) 20 mg BID@09,18 PO 05/20/17 09:00 05/22/17 17:29 (Benadryl) 25 mg Q6H PRN PO 05/22/17 09:45 05/23/17 01:19 (Jesup 10-325 Mg) 1 tab Q4H PRN PO 05/22/17 11:30 05/22/17 21:47 (Colace) 100 mg BID PO 05/22/17 11:30 05/22/17 21:46 (Neurontin) 900 mg TID PO 05/22/17 13:00 05/22/17 17:28 (Tylenol 650 Mg/ 20 ml Liq) 650 mg Q6H PRN PO 05/22/17 12:00 Assessment and Plan Assessment and Plan Stable s/p right radical nephrectomy OOB to chair Pain control Ice chips Continue Lovenox 05/20 Stable s/p right radical nephrectomy POD#2 OOB to chair with ambulation Desai out and voiding; d/c RADHA drain Clear liquid diet Continue Lovenox; dose changed to Q12 instead of daily. Transfer to floor 05/21 Stable s/p right radical nephrectomy POD#3 Check H/H due do drop from 13 to 11 OOB/Ambulate D/C on Q pump and [employer] Continue liquid diet for now 05/22 Stable s/p right radical nx POD#4 OOB/Ambulate Heart healthy diet Stop MS04 Narco for pain 05/23 05/22 Stable s/p right radical nx POD#5 Discharge home today Nolan Sage DO May 23, 2017 08:14
[2017-05-23] MEDS ORDERED: LACTULOSE SYRUP 20 GM/30 ML CUP PO ONE (08:15)
[2017-05-23] MEDS: CARVEDILOL 6.25 MG TAB PO SCH (09:35)
[2017-05-23] MEDS: DOCUSATE SODIUM 100 MG CAP PO SCH (09:35)
[2017-05-23] MEDS: ALLOPURINOL 100 MG TAB PO SCH (09:35)
[2017-05-23] MEDS: GABAPENTIN 300 MG CAP PO SCH (09:35)
[2017-05-23] MEDS: ENOXAPARIN SODIUM 30 MG/0.3 ML SYRINGE SQ SCH (09:36)
[2017-05-23] MEDS: FUROSEMIDE 40 MG TAB PO SCH (09:36)
[2017-05-23] MEDS: ACETAMINOPHEN/HYDROcodone 325 MG/10 MG TAB PO PRN (10:14)
--- NOTE | 2017-05-23 10:28 | HHI.PR ---
Subjective Remarks in no distress. has some pain to the right flank. no BM yet. d/w the RN. Objective Vitals Vital Signs Date Time Temp Pulse Resp B/P (MAP) Pulse Ox O2 Delivery O2 Flow Rate FiO2 05/23/17 08:00 98.8 107 17 111/79 (90) 95 05/23/17 00:23 96.0 80 20 100/53 (69) 95 05/22/17 20:19 97.3 81 17 93/52 (66) 93 05/22/17 16:00 96.1 86 16 90/54 (66) 94 05/22/17 13:55 Room Air 2.00 05/22/17 12:00 97.7 78 16 92/55 (67) 91 I/O 05/22/17 05/22/17 05/22/17 05/23/17 05/23/17 05/23/17 07:00 15:00 23:00 07:00 15:00 23:00 Intake Total 240 ml 500 ml 600 ml 670 ml Output Total 800 ml 1700 ml Balance -560 ml 500 ml -1100 ml 670 ml Intake Oral 240 ml 600 ml 670 ml IV Total 500 ml Output Urine Total 800 ml 1700 ml # Voids 4 # Bowel Movements 0 2 Result Diagram: 05/22/17 0605 05/22/17 0605 Imaging Last Impressions Chest X-Ray 05/18/17 0000 Signed Impressions: Service Date/Time: Thursday, May 18, 2017 11:56 - CONCLUSION: 1. Right central line in superior vena cava without pneumothorax. Raphael Oliveira MD Objective Remarks GENERAL: This is a well-nourished, well-developed patient, in no apparent distress. CARDIOVASCULAR: Regular rate and regular rhythm without murmurs, gallops, or rubs. RESPIRATORY: Clear to auscultation. Breath sounds equal bilaterally. No wheezes , rales, or rhonchi. GASTROINTESTINAL: Abdomen soft, non-tender, nondistended. Normal, active bowel sounds MUSCULOSKELETAL: Extremities without clubbing, cyanosis, or edema. NEURO: Alert & Oriented x4 to person, place, time, situation. Moves all ext x4 Medications and IVs Current Medications Lactated Ringer's 1,000 ml @ 30 mls/hr Q24H PRN IV SEE LABEL COMMENTS Last administered on 05/18/17t 06:20; Start 9/19/17 at 06:00; Stop 05/18/17 at 12:30 ; Status DC Sodium Chloride 500 ml @ 30 mls/hr [id number] PRN IV SEE LABEL COMMENTS; Start at 06:00; Stop 05/18/17 at 12:30; Status DC Metoprolol Tartrate (Lopressor) 25 mg SOFTWARE ENGINEER ADVISOR PRN PO SEE LABEL COMMENTS; Start 05/18/17 at 06:00; Stop 05/21/17 at 05:59; Status DC Povidone Iodine (Betadine 5% Antisepsis Kit) 1 applic SOFTWARE ENGINEER ADVISOR PRN EACH NARE SEE LABEL COMMENTS Last administered on 05/18/17 06:26; Start 05/18/17 at 06:00 ; Stop 05/21/17 at 05:59; Status DC Chlorhexidine Gluconate (Chlorhexidine 2% Cloth) 3 pack SOFTWARE ENGINEER ADVISOR PRN TOPICAL SEE LABEL COMMENTS Last administered on 05/18/17 05:40; Start 05/18/17 at 06:00 ; Stop 05/21/17 at 05:59; Status DC Insulin Human Regular (NovoLIN R INJ) See Protocol Table ... SOFTWARE ENGINEER ADVISOR PRN SQ SEE PROTOCOL TABLE; Start 05/18/17 at 06:00; Stop 05/21/17 at 05:59; Status DC Cefazolin Sodium 1000 mg/Sodium Chloride 100 ml @ 200 mls/hr SOFTWARE ENGINEER ADVISOR IV Last administered on 05/18/17 06:26; Start 05/18/17 at 06:00; Stop 05/18/17 at 12:31 ; Status DC Enoxaparin Sodium (Lovenox Inj) 30 mg SOFTWARE ENGINEER ADVISOR SQ Last administered on 06:26; Start 05/18/17 at 06:00; Stop 05/18/17 at 12:00; Status DC Bupivacaine HCl (Marcaine Pf 0.5% Inj) 150 ml STK-MED ONCE .ROUTE Last administered on 05/18/17 10:30; Start 05/18/17 at 10:34; Stop 05/18/17 at 10:35 ; Status DC Bupivacaine HCl (Marcaine Pf 0.5% Inj) 210 ml ONCE ONCE INFIL Last administered on 05/18/17 10:30; Start 05/18/17 at 12:00; Stop 05/18/17 at 12:01 ; Status DC Cefazolin Sodium 1000 mg/Sodium Chloride 100 ml @ 200 mls/hr Q8H IV Last administered on 05/19/17 04:42; Start 05/18/17 at 14:00; Stop 05/19/17 at 06:29 ; Status DC Morphine Sulfate (Morphine Inj) 2 mg Q3H PRN IV PUSH pain 6-10;IF NPO Last administered on 05/21/17 21:09; Start 05/18/17 at 11:30; Stop 05/22/17 at 11:35 ; Status DC Potassium Chloride/Sodium Chloride 1,000 ml @ 125 mls/hr Q8H IV Last administered on 05/20/17 05:15; Start 05/18/17 at 12:00; Stop 05/20/17 at 06:56 ; Status DC Acetaminophen (Tylenol 650 Mg/ 20 ml Liq) 650 mg Q6H PRN PO pain 1-5 or temp> 100.6; Start 05/18/17 at 11:30; Stop 05/22/17 at 11:47; Status DC Enoxaparin Sodium (Lovenox Inj) 30 mg Q24H SQ ; Start 05/19/17 at 07:00; Stop at 08:45; Status DC Ondansetron HCl (Zofran Inj) 4 mg Q6HR PRN IV PUSH n/v Last administered on 23:06; Start 05/18/17 at 11:30 Gabapentin (Neurontin) 300 mg TID PO Last administered on 05/22/17 09:26; Start 05/18/17 at 13:00; Stop 05/22/17 at 11:36; Status DC Baclofen (Lioresal) 10 mg Q8HR PRN PO muscle spasm Last administered on 06:28; Start 05/18/17 at 12:00 Albuterol Sulfate (Albuterol Neb) 2.5 mg Q4HR NEB NEB Last administered on 11:46; Start 05/18/17 at 12:00; Stop 05/22/17 at 11:59; Status DC Allopurinol (Zyloprim) 100 mg DAILY PO Last administered on 05/23/17 09:35; Start 05/19/17 at 09:00 Lisinopril (Prinivil) 5 mg DAILY PO ; Start 05/19/17 at 09:00; Status Future Hold Docusate Sodium (Colace) 100 mg BID PO Last administered on 05/22/17 09:26; Start 05/18/17 at 21:00; Stop 05/22/17 at 11:47; Status DC Spironolactone (Aldactone) 25 mg DAILY PO Last administered on 05/22/17 09:26 ; Start 05/19/17 at 09:00 Carvedilol (Coreg) 6.25 mg Q12HR PO Last administered on 05/23/17 09:35; Start 05/18/17 at 21:00 Acetaminophen/ Hydrocodone Bitart ([place] 10-325 Mg) 1 tab Q6H PRN PO pain 6-10 Last administered on 05/22/17 09:25; Start 05/18/17 at 11:30; Stop 05/22/17 at 11:35; Status DC Furosemide (Lasix) 40 mg BID@ PO Last administered on 05/19/17 18:22; Start 05/18/17 at 18:00; Stop 05/20/17 at 08:45; Status DC Promethazine HCl (*PHENERGAN INJ PERIprocedural ONLY) 25 mg STK-MED ONCE .ROUTE Last administered on 05/18/17 11:45; Start 05/18/17 at 11:43; Stop 05/18/17 at 11:44; Status DC Morphine Sulfate (Morphine 1 Mg/ ml ORTHOPEDIC DENTIST) 30 mg STK-MED ONCE .ROUTE Last administered on 05/18/17 12:25; Start 05/18/17 at 12:19; Stop 05/18/17 at 12:20 ; Status DC Morphine Sulfate (Morphine 1 Mg/ ml ORTHOPEDIC DENTIST) 30 mg UNSCH IV Last administered on 11:49; Start 05/18/17 at 12:45; Stop 05/21/17 at 09:07; Status DC ORTHOPEDIC DENTIST Dosage Infused (Pha) 1 Q8HR .XX Last administered on 05/20/17 22:00; Start 05/18/17 at 14:00; Stop 05/21/17 at 09:07; Status DC Naloxone HCl (Narcan Inj) 0.4 mg UNSCH PRN IV PUSH RESPIRATORY RATE LESS THAN 10; Start 05/18/17 at 12:45; Stop 05/21/17 at 09:07; Status DC Diphenhydramine HCl (Benadryl Inj) 25 mg Q6H PRN IV PUSH ITCHING Last administered on 05/22/17t 00:48; Start 05/18/17 at 12:45 Albuterol/ Ipratropium (Duoneb Neb) 1 ampule Q2HR NEB PRN INH WHEEZING; Start 05/18/17 at 17:45 Magnesium Oxide (Mag-Ox) 800 mg UNSCH PRN PO For Magnesium 1.2 - 1.6 mg/dL; Start 05/18/17 at 17:45; Stop 05/22/17 at 09:42; Status DC Magnesium Sulfate 4 gm/Sodium Chloride 100 ml @ 50 mls/hr UNSCH PRN IV For Magnesium 0.9 - 1.1 mg/dL; Start 05/18/17 at 17:45; Stop 05/22/17 at 09:42; Status DC Magnesium Sulfate 2 gm/Sodium Chloride 100 ml @ 50 mls/hr UNSCH PRN IV For Magnesium 1.2 - 1.6 mg/dL; Start 05/18/17 at 17:45; Stop 05/22/17 at 09:42; Status DC Potassium Chloride 100 ml @ 50 mls/hr Q2H PRN IV For Potassium 2.8 - 3.2 mEq/L ; Start 05/18/17 at 17:45; Stop 05/22/17 at 09:42; Status DC Potassium Chloride 100 ml @ 50 mls/hr Q2H PRN IV For Potassium 3.3 - 3.5 mEq/L ; Start 05/18/17 at 17:45; Stop 05/22/17 at 09:42; Status DC Potassium Chloride 100 ml @ 50 mls/hr Q2H PRN IV For Potassium 2.8 - 3.2 mEq/L ; Start 05/18/17 at 17:45; Stop 05/22/17 at 09:42; Status DC Potassium Chloride 100 ml @ 25 mls/hr UNSCH PRN IV For Potassium 3.3 - 3.5 mEq /L; Start 05/18/17 at 17:45; Stop 05/22/17 at 09:42; Status DC Potassium Phosphate (K-Phos) 2,000 mg Q4H PRN PO For Phosphorus < 2.5 mg/dL; Start 05/18/17 at 17:45; Stop 05/22/17 at 09:42; Status DC Potassium Phosphate (K-Phos) 2,000 mg UNSCH PRN PO/TUBE SEE LABEL COMMENTS; Start 05/18/17 at 17:45; Stop 05/22/17 at 09:42; Status DC Potassium Phosphate 30 mmol/ Sodium Chloride 260 ml @ 42 mls/hr UNSCH PRN IV SEE LABEL COMMENTS; Start 05/18/17 at 17:45; Stop 05/22/17 at 09:42; Status DC Sodium Phosphate 30 mmol/Sodium Chloride 250 ml @ 42 mls/hr UNSCH PRN IV For Phosphorus < 2.5 mg/dL; Start 05/18/17 at 17:45 Lactated Ringer's 1,000 ml @ 500 mls/hr Q2H IV Last administered on 05/19/17 21:29; Start 05/19/17 at 14:00; Stop 05/20/17 at 06:57; Status DC Sodium Chloride 1,000 ml @ 50 mls/hr Q20H IV ; Start 05/20/17 at 08:45; Stop at 08:49; Status DC Enoxaparin Sodium (Lovenox Inj) 30 mg Q12HR SQ Last administered on 05/23/17 09:36; Start 05/20/17 at 09:00 Furosemide (Lasix) 20 mg BID@09,18 PO Last administered on 05/23/17 09:36; Start 05/20/17 at 09:00 Sodium Chloride 1,000 ml @ 30 mls/hr Q24H IV Last administered on 05/21/17 16 :58; Start 05/20/17 at 08:45; Stop 05/22/17 at 11:35; Status DC Diphenhydramine HCl (Benadryl) 25 mg Q6H PRN PO ITCHING Last administered on 01:19; Start 05/22/17 at 09:45 Acetaminophen/ Hydrocodone Bitart ([place] 10-325 Mg) 1 tab Q4H PRN PO pain 1-10 Last administered on 05/23/17 10:14; Start 05/22/17 at 11:30 Docusate Sodium (Colace) 100 mg BID PO Last administered on 05/23/17 09:35; Start 05/22/17 at 11:30 Gabapentin (Neurontin) 900 mg TID PO Last administered on 05/23/17 09:35; Start 05/22/17 at 13:00 Acetaminophen (Tylenol 650 Mg/ 20 ml Liq) 650 mg Q6H PRN PO temp>100.6; Start 05/22/17 at 12:00 Lactulose (Lactulose Liq) 30 ml ONCE ONCE PO Last administered on 05/23/17 09 :35; Start 05/23/17 at 08:15; Stop 05/23/17 at 08:16; Status DC A/P Assessment and Plan A/P s/p Right nephrectomy -management per Urology Cardiomyopathy, EF 20% Hypertension Hyperlipidemia - Continue home medications of Lasix 40 twice a day, Aldactone 25 daily, and lisinopril 5 mg daily, Coreg 6.25 twice a day, and statin -cardiology evaluated and signed off. anemia- post-op H/H fairly stable. monitor H/H closely. Fibromyalgia Chronic pain syndrome - Continue home gabapentin Acute on chronic kidney disease, unknown stage - monitor urine output and renal function closely. - Diuresis as above COPD Tobacco use - wean o2 by NC for goal spo2 > 90% - aggressive pulmonary toilet - PT consult - nebs prn History of DVT History of LV Thrombus - Prophylactic anticoagulation currently and would recommend full anticoagulation as soon as deemed safe by Urology. Discharge Planning dc planning per urology. case management for dc needs. d/w the RN. Amor Flores MD May 23, 2017 10:28
[2017-05-23 12:00] VITALS: BP 109/51; PULSE 84; RESP 16; TEMP 98.7; O2SAT 95
[2017-05-26] MEDS ORDERED: GABA300C5 PO (09:15)
[2017-06-09] MEDS ORDERED: CEPH500C PO (17:00)
[2017-06-09] MEDS ORDERED: HYDR-3583 PO (17:01)
--- NOTE | 2017-06-11 14:17 | MD ---
cc: MIRIAN ROGERS ADMISSION DATE: 05/18/2017 DISCHARGE DATE: 05/23/2017 BRIEF HISTORY: Dann Tineo is a 52-year male year-old male with findings of a large centrally located right renal mass who underwent a right radical nephrectomy. He has a long history of congestive heart failure and his ejection fraction is approximately 20%. He was cleared by cardiology for the surgery and he wished to proceed. HOSPITAL COURSE: Postoperatively he did well. Hospital day #1 he was out of bed to the chair using his spirometer. His Hammond catheter was removed. He was able to go ahead and void. His urine output was good. His creatinine stabilized as well as his hemoglobin. He did not require any transfusion postoperatively and he had minimal blood loss during the procedure. On 05/25/17, decision made then to discharge the patient. At the time of discharge he was given instructions on diet, exercise and medications and scheduled for follow up in the office the following week for staple removal. Mirian SANCHES/CÉSAR /1:27 PM /2:11 PM
[2017-06-16] MEDS ORDERED: HYDR-3583 PO (13:23)
== END 2017-05-23 13:46 | disposition home or self-care (01) | DRG 657 ==
LOC: HSDI 05-18 05:25 → N03A 05-18 13:23 → N07B 05-20 08:52 → N03A 05-20 09:14 → N07A 05-21 13:15
PROVIDERS: ADMIT Urology; ATTEND Urology
PROC: 0TT00ZZ Resection of Right Kidney, Open Approach (ICD-10-PCS; principal; 2017-05-18 07:56)
DX: D49.511 Neoplasm of unspecified behavior of right kidney (principal); I42.0 Dilated cardiomyopathy; I50.22 Chronic systolic (congestive) heart failure; I13.0 Hypertensive heart and chronic kidney disease with heart failure and stage 1 through stage 4 chronic kidney disease, or unspecified chronic kidney disease; N28.89 Other specified disorders of kidney and ureter; D64.89 Other specified anemias; G62.9 Polyneuropathy, unspecified; J44.9 Chronic obstructive pulmonary disease, unspecified; N18.9 Chronic kidney disease, unspecified; Z86.718 Personal history of other venous thrombosis and embolism; Z79.01 Long term (current) use of anticoagulants; M10.9 Gout, unspecified; I07.1 Rheumatic tricuspid insufficiency; F17.200 Nicotine dependence, unspecified, uncomplicated; E78.5 Hyperlipidemia, unspecified; M79.7 Fibromyalgia; K21.9 Gastro-esophageal reflux disease without esophagitis; N52.9 Male erectile dysfunction, unspecified; M06.9 Rheumatoid arthritis, unspecified; G89.4 Chronic pain syndrome; R11.0 Nausea
CPT/HCPCS: 71010; 80048; 80053; 82805; 83735; 85014; 85018; 85025; 85027; 86850; 86900; 86901; 86920; 88307; 94150; 94640; 94664; 94667; 94668; J0690; J1200; J1650; J2270; J2370; J2405; J2550; J2710; J3010; J7030; J7120; J7613

== ENCOUNTER 2017-07-11 16:46 | Emergency (ER) | payer OTHER ==
[~2017-07-11] VITALS: Ht 185.4 cm; Wt 75.0 kg
[~2017-07-11 16:46] MED LIST changes: +CEPH500C PO; -DOCU100C PO; +DOCU100C15 PO; +GABA300C5 PO; -LACT PO; -METR500T10 PO; -NEUR300C PO; -SPIR25TA PO
[2017-07-11 16:48] VITALS: BP 125/63; TEMP 97.7; O2SAT 100
[2017-07-11 17:11] VITALS: BP 123/79; PULSE 106; RESP 22; O2SAT 98
[2017-07-11] MEDS ORDERED: methylPREDNISolone SOD SUCC 125 MG/2 ML VIAL IV PUSH ONE (17:15)
[2017-07-11] MEDS ORDERED: SODIUM CHLORIDE 0.9% FLUSH 10 ML FLUSH IVF PRN (17:15)
--- NOTE | 2017-07-11 17:15 | PD ---
HPI Chief Complaint: Respiratory Symptoms Time Seen by Provider: 17:07 Travel History International Travel<30 days: No Contact w/Intl Traveler<30days: No Traveled to known affect area: No History of Present Illness HPI 52-year-old male presents to the emergency Department with complaint of shortness of breath since night. He has history of CHF, COPD, and asthma. Has history of PE and DVT and currently takes her alto. He denies chest pain. Has been using his albuterol nebulizer and inhaler, which are working for short amount of time. Last use of breathing treatments every 5 minutes ago. Reports tobacco use. Reports cough with sputum production. Denies hemoptysis, but reports possible pink tinged sputum. Reports wheezing. Denies fever, vomiting. Denies recent illness. Symptoms are moderate to severe in severity. Reports surgical removal of his right kidney secondary to cancer on May 18. Primary care provider is Dr. Coleman. Desk Assistant is Dr. Gibbs. 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 Allergies to Ultram, Levaquin, ibuprofen. History of COPD, asthma, CHF, PE, DVT. Has no other medical complaints. No other modifying factors or associated signs and symptoms. PFSH Past Medical History Hx Anticoagulant Therapy: Yes (XARELTO) Arthritis: Yes Asthma: Yes Autoimmune Disease: No Blood Disorders: No Anxiety: Yes Depression: Yes Heart Rhythm Problems: Yes (CHF) Cancer: Yes (right renal mass) Cardiovascular Problems: Yes (CHF, NONISCHEMIC CARDIOMYOPATHY) High Cholesterol: No Chemotherapy: No Chest Pain: No Congestive Heart Failure: Yes COPD: Yes Diabetes: No Diminished Hearing: No Endocrine: No Fibromyalgia: Yes Gastrointestinal Disorders: Yes GERD: Yes Genitourinary: No (FREQUENCY) Hiatal Hernia: No Hypertension: Yes Immune Disorder: Yes (FIBROMYALGIA) Musculoskeletal: Yes (OA) Neurologic: No Psychiatric: Yes Reproductive: No Respiratory: Yes (COPD, ASTHMA, SLEEP APNEA) Integumentary: Yes (reoccuring shingles) Immunizations Current: Yes Migraines: Yes Radiation Therapy: No Renal Failure: Yes Sleep Apnea: Yes Thyroid Disease: No Past Surgical History Abdominal Surgery: No AICD: No Cardiac Surgery: No Ear Surgery: No Endocrine Surgery: No Eye Surgery: No Genitourinary Surgery: No Gynecologic Surgery: No Joint Replacement: No Pacemaker: No Thoracic Surgery: No Other Surgery: Yes Social History Alcohol Use: No Tobacco Use: Yes (1/2 PACK/DAY) Substance Use: No Allergies-Medications (Allergen,Severity, Reaction): Coded Allergies: levofloxacin (Verified Allergy, Mild, EDEMA, 06/29/17) tramadol (Verified Allergy, Mild, Itchy, 06/29/17) ibuprofen (Verified Adverse Reaction, Severe, Nausea/Vomiting, 06/29/17) Reported Meds & Prescriptions Reported Meds & Active Scripts Active Ventolin Hfa 18 GM Inh (Albuterol Sulfate) 90 Mcg/Act Aer 2 Puff INH Q4-6H PRN Deltasone (Prednisone) 20 Mg Tab 40 Mg PO DAILY 5 Days Hydrocodone-Acetaminophen 10-325 mg Tab 1 Tab PO Q6H PRN Cephalexin 500 Mg Cap 500 Mg PO Q6H Lasix (Furosemide) 40 Mg Tab 40 Mg PO BID Nystatin Topical (Nystatin) 100,000 unit/gm Cream 1 Applic TOPICAL BID Lisinopril 5 Mg Tab 5 Mg PO DAILY Zyloprim (Allopurinol) 100 Mg Tab 100 Mg PO DAILY Albuterol Neb (Albuterol Sulfate) 2.5 Mg/3 Ml Neb 2.5 Mg NEB Q4HR NEB While awake Xarelto (Rivaroxaban) 20 Mg Tab 20 Mg PO DAILY Reported Gabapentin 300 Mg Cap 900 Mg PO TID Hydrocodone-Acetaminophen 10-325 mg Tab 1 Tab PO Q6H PRN Carvedilol 6.25 Mg Tab 6.25 Mg PO BID Butalbital-Acetaminophen 50-325 Mg Tab 1-2 Tab PO Q4HR PRN Do not exceed 6 tablets per day. Docusate Sodium 100 Mg Cap 100 Mg PO Q12HR Baclofen 10 Mg Tab 10 Mg PO Q8HR PRN Review of Systems Except as stated in HPI: all other systems reviewed are Neg Physical Exam Narrative GENERAL: Well-nourished, well-developed male patient, in no acute distress; afebrile, nontoxic-appearing SKIN: Warm and dry. HEAD: Atraumatic. Normocephalic. EYES: Pupils equal and round. No scleral icterus. No injection or drainage. ENT: Mucosa pink and moist. Airway patent. EARS: Bilateral pinnae and external canals appear within normal limits. NECK: Trachea midline. No lymphadenopathy. CARDIOVASCULAR: Tachycardic rate and rhythm in low 100's. No murmur appreciated. RESPIRATORY: No accessory muscle use. Lungs with Wheezing throughout to auscultation. Breath sounds equal bilaterally. No retractions. Tachypnea in low 20's. No Audible wheezing noted. GASTROINTESTINAL: Abdomen soft, non-tender, nondistended. Hepatic and splenic margins not palpable. Bowel sounds are active 4 quadrants. MUSCULOSKELETAL: No obvious deformities. No clubbing. No cyanosis. No edema. NEUROLOGICAL: Awake and alert. Oriented 3. No obvious cranial nerve deficits. Motor grossly within normal limits. Normal speech. Moves all extremities. 5/5 strength to all extremities. PSYCHIATRIC: Appropriate mood and affect; insight and judgment normal. Data Data Last Documented VS Vital Signs Date Time Temp Pulse Resp B/P (MAP) Pulse Ox O2 Delivery O2 Flow Rate FiO2 07/11/17 17:29 94 21 07/11/17 17:25 Room Air 07/11/17 17:25 07/11/17 17:11 106 22 07/11/17 16:48 97.7 Orders Orders Basic Metabolic Panel (Bmp) (07/11/17 17:15) Complete Blood Count With Diff (07/11/17 17:15) Chest, Single Ap (07/11/17 17:15) Ecg Monitoring (07/11/17 17:15) Iv Access Insert/Monitor (07/11/17 17:15) Oximetry (07/11/17 17:15) Oxygen Administration (07/11/17 17:15) Sodium Chloride 0.9% Flush (Ns Flush) (07/11/17 17:15) Electrocardiogram (07/11/17 17:15) B-Type Natriuretic Peptide (07/11/17 17:15) Prothrombin Time / Inr (Pt) (07/11/17 17:15) Act Partial Throm Time (Ptt) (07/11/17 17:15) Magnesium (Mg) (07/11/17 17:15) Troponin I (07/11/17 17:15) Methylprednisolone So Succ Inj (Solumedr (07/11/17 17:15) Albuterol-Ipratropium Neb (Duoneb Neb) (07/11/17 17:15) Labs Laboratory Tests Test 07/11/17 17:20 White Blood Count 11.4 TH/MM3 Red Blood Count 4.98 MIL/MM3 Hemoglobin 14.0 GM/DL Hematocrit 42.3 % Mean Corpuscular Volume 85.0 FL Mean Corpuscular Hemoglobin 28.2 PG Mean Corpuscular Hemoglobin Concent 33.2 % Red Cell Distribution Width 18.5 % Platelet Count 217 TH/MM3 Mean Platelet Volume 10.3 FL Neutrophils (%) (Auto) 58.5 % Lymphocytes (%) (Auto) 24.6 % Monocytes (%) (Auto) 11.0 % Eosinophils (%) (Auto) 4.6 % Basophils (%) (Auto) 1.3 % Neutrophils # (Auto) 6.7 TH/MM3 Lymphocytes # (Auto) 2.8 TH/MM3 Monocytes # (Auto) 1.3 TH/MM3 Eosinophils # (Auto) 0.5 TH/MM3 Basophils # (Auto) 0.1 TH/MM3 CBC Comment DIFF FINAL Differential Comment Prothrombin Time 11.0 SEC Prothromb Time International Ratio 1.0 RATIO Activated Partial Thromboplast Time 26.8 SEC Blood Urea Nitrogen 42 MG/DL Creatinine 1.96 MG/DL Random Glucose 91 MG/DL Calcium Level 9.1 MG/DL Magnesium Level 2.4 MG/DL Sodium Level 135 MEQ/L Potassium Level 4.5 MEQ/L Chloride Level 100 MEQ/L Carbon Dioxide Level 26.4 MEQ/L Anion Gap 9 MEQ/L Estimat Glomerular Filtration Rate 36 ML/MIN Troponin I LESS THAN 0.02 NG/ML B-Type Natriuretic Peptide 17 PG/ML MDM Medical Decision Making Medical Screen Exam Complete: Yes Emergency Medical Condition: Yes Medical Record Reviewed: Yes Differential Diagnosis COPD exacerbation, asthma exacerbation, CHF, MD, ACS Narrative Course 52-year-old male with history of CHF, asthma, COPD, PE and DVT with shortness of breath since . Patient currently takes Xarelto. Patient has some mild tachypnea, tachycardia, and wheezing throughout on auscultation. He is in no acute distress. I discussed the patient was Dr. Banuelos, my attending physician and he agrees with my plan of care. IV site obtained. CBC, BMP, troponin, BNP, coags, EKG, chest x-ray, DuoNeb, Solu-Medrol ordered. 1800: EKG reviewed by Dr. Banuelos and I reviewed the medical record and EKG is consistent with EKG from March 2017. 1840: CBC unremarkable. Coags unremarkable. Troponin less than 0.02. BNP 17. Chest x-ray concludes: Chest X-Ray 07/11/17 3767 Signed Impressions: Service Date/Time: Tuesday, July 11, 2017 17:32 - CONCLUSION: No acute cardiopulmonary abnormality is identified. Delroy Aburto MD X-ray findings discussed with the patient. On reevaluation the patient reports improvement in symptoms and denies shortness of breath. Lungs with very mild wheezing to bilateral bases. Patient requesting to be discharged home. I discussed the patient with Dr. Banuelos, my attending physician, and he agrees with discharge. Azithromycin, Deltasone and Ventolin inhaler prescribed for home. Instructed patient to follow up with primary care provider. Patient verbalizes understanding and agreement with treatment plan. Patient is medically cleared and stable for discharge. Discussed reasons to return to the emergency department. Patient agrees with treatment plan. The patients vital signs are stable and the patient is stable for outpatient follow-up and treatment. Patient discharged home, stable and in no acute distress. Diagnosis Primary Impression: COPD exacerbation Referrals: Primary Care Physician Sales And Service Change Leader Patient Instructions: COPD (Chronic Obstructive Pulmonary Disease) (ED), General Instructions Additional Instructions: Use albuterol inhaler as needed for shortness of breath and/or wheezing Take oral steroids as prescribed and complete full course Avoid triggers such as smoking cigarettes, second hand smoke, dust, known allergens Follow-up with primary care provider Return to emergency department immediately with worsening of symptoms Med/Other Pt SpecificInfo: Prescription(s) given Scripts Azithromycin (Azithromycin) 500 Mg Tab 500 MG PO DAILY for Infection, #5 TAB 0 Refills Prov: Angeles JacksonP 07/11/17 Albuterol 18 GM Inh (Ventolin Hfa 18 GM Inh) 90 Mcg/Act Aer 2 PUFF INH Q4-6H Y for SOB/WHEEZING, #1 INHALER 0 Refills Prov: Angeles JacksonP 07/11/17 Prednisone (Deltasone) 20 Mg Tab 40 MG PO DAILY for 5 Days, #10 TAB 0 Refills Prov: Angeles JacksonP 07/11/17 Disposition: 01 DISCHARGE HOME Condition: Stable Angeles Jackson Jul 11, 2017 17:15
[2017-07-11 17:25] VITALS: O2SAT 98
[2017-07-11 17:29] VITALS: O2SAT 94
[2017-07-11] MEDS: RESP: ALBUTEROL 2.5 MG/IPRATROPIUM 0.5 MG NEB (SCH) INH (17:29)
[2017-07-11 17:51] LABS: AUTOMATED NEUTROPHIL # 6.7 TH/MM3 (1.8-7.7); BASOPHIL # 0.1 TH/MM3 (0-0.2); BASOPHIL % 1.3 % (0.0-2.0); EOSINOPHIL # 0.5 TH/MM3 (0-0.4); EOSINOPHIL % 4.6 % (0.0-4.0); HEMATOCRIT 42.3 % (39.0-51.0); HEMO FLAGS DIFF FINAL; LYMPH % 24.6 % (9.0-44.0); LYMPHOCYTE # 2.8 TH/MM3 (1.0-4.8); MEAN CORPUSCULAR HEMOGLOBIN 28.2 PG (27.0-34.0); MEAN CORPUSCULAR HGB CONC 33.2 % (32.0-36.0); NEUT % 58.5 % (16.0-70.0); PLATELET COUNT 217 TH/MM3 (150-450); RED BLOOD COUNT 4.98 MIL/MM3 (4.50-5.90); RED CELL DISTRIBUTION WIDTH 18.5 % (11.6-17.2); WHITE BLOOD COUNT 11.4 TH/MM3 (4.0-11.0)
[2017-07-11 18:04] LABS: APTT (PATIENT) 26.8 SEC (24.3-30.1)
--- NOTE | 2017-07-11 18:06 | RADRPT ---
EXAM DATE/TIME: 07/11/2017 17:32 [facility] COMPARISON: CHEST SINGLE AP, May 18, 2017, 11:56. INDICATIONS : Shortness of breath. MEDICAL HISTORY : Chronic obstructive pulmonary disease. Congestive heart failure. Gastroesophageal reflux disease. Hypertension, Asthma, sleep apnea, renal failure SURGICAL HISTORY : Left knee surgery. ENCOUNTER: Initial ACUITY: 1 day PAIN SCORE: 0/10 LOCATION: Bilateral chest FINDINGS: Portable AP view of the chest demonstrates a normal-sized cardiac silhouette. No effusion, consolidat ion, or pneumothorax is visualized. The bones and soft tissues demonstrate no acute abnormality. CONCLUSION: No acute cardiopulmonary abnormality is identified. Delroy Aburto MD on July 11, 2017 at 18:04 Board Certified Radiologist. This report was verified electronically.
[2017-07-11 18:10] LABS: ANION GAP 9 MEQ/L (5-15); BICARBONATE 26.4 MEQ/L (21.0-32.0); BLOOD UREA NITROGEN 42 MG/DL (7-18); CHLORIDE 100 MEQ/L (98-107); GLOMERULAR FILTRATION RATE 36 ML/MIN (>89); MAGNESIUM 2.4 MG/DL (1.5-2.5); POTASSIUM 4.5 MEQ/L (3.5-5.1); SODIUM (NA) 135 MEQ/L (136-145)
[2017-07-11] MEDS ORDERED: VENTAER INH (18:48)
[2017-07-11] MEDS ORDERED: PRED-503 PO (18:48)
[2017-07-11] MEDS ORDERED: AZIT500T2 PO (18:59)
[2017-07-11 19:03] VITALS: BP 103/64; PULSE 97; RESP 17; O2SAT 96
--- NOTE | 2017-07-12 19:11 | EKG ---
Date Performed: 07/11/2017 Time Performed: 17:52:19 PTAGE: 52 years EKG: Sinus rhythm POSSIBLE RIGHT ATRIAL ENLARGEMENT POSSIBLE LEFT ATRIAL ENLARGEMENT BORDERLINE LEFT AXIS DEVIATION PO SSIBLE RIGHT VENTRICULAR CONDUCTION DELAY LEFT VENTRICULAR HYPERTROPHY AND ST-T CHANGE ABNORMAL ECG S sebas PREVIOUS TRACING , no significant change noted PREVIOUS TRACIN04/05/2017 02.34 DOCTOR: Otto Yoo Interpretating Date/Time 07/12/2017 19:09:27
== END 2017-07-11 19:31 | disposition home or self-care (01) ==
LOC: NEPC 16:46
DX: J44.1 Chronic obstructive pulmonary disease with (acute) exacerbation (principal); I11.0 Hypertensive heart disease with heart failure; I50.9 Heart failure, unspecified; F17.200 Nicotine dependence, unspecified, uncomplicated
CPT/HCPCS: 71010; 80048; 83735; 83880; 84484; 85025; 85610; 85730; 93005; 94640; 94664; 96374; 99285; J2930

== ENCOUNTER 2017-08-17 04:14 | Emergency (ER) | payer OTHER ==
[~2017-08-17] VITALS: Ht 182.9 cm; Wt 78.0 kg
[~2017-08-17 04:14] MED LIST changes: -BACL10TA PO; -BUTA1TAB30 PO; -CEPH500C PO; -DOCU100C15 PO; -GABA300C5 PO; -HYDR-3583 PO; -NYST15T TOPICAL; +VENTAER INH
[2017-08-17 04:15] VITALS: BP 137/72; PULSE 104; RESP 22; TEMP 98.3; O2SAT 96
[2017-08-17] MEDS ORDERED: SODIUM CHLOR 0.9% 1000 ML INJ 1,000 ML IV SCH (04:30)
[2017-08-17] MEDS ORDERED: SODIUM CHLORIDE 0.9% FLUSH 10 ML FLUSH IV FLUSH PRN (04:30)
[2017-08-17 04:54] VITALS: O2SAT 97
--- NOTE | 2017-08-17 04:58 | RADRPT ---
EXAM DATE/TIME: 08/17/2017 04:41 [facility] COMPARISON: CHEST SINGLE AP, July 11, 2017, 17:32. INDICATIONS : Short of breath. MEDICAL HISTORY : Chronic obstructive pulmonary disease. Congestive heart failure. Gastroesophageal reflux disease. Hyp ertension, Asthma, sleep apnea, renal failure. SURGICAL HISTORY : Left knee surgery. ENCOUNTER: Initial ACUITY: 1 day PAIN SCORE: 0/10 LOCATION: Bilateral chest FINDINGS: A single view of the chest demonstrates the lungs to be symmetrically aerated without evidence of mas s, infiltrate or effusion. The cardiomediastinal contours are unremarkable. Osseous structures are intact. CONCLUSION: No acute disease. Delroy Cameron MD on August 17, 2017 at 4:57 Board Certified Radiologist. This report was verified electronically.
[2017-08-17 05:02] LABS: BASOPHIL # 0.2 TH/MM3 (0-0.2); BASOPHIL % 1.1 % (0.0-2.0); EOSINOPHIL # 0.4 TH/MM3 (0-0.4); EOSINOPHIL % 3.2 % (0.0-4.0); HEMATOCRIT 44.1 % (39.0-51.0); HEMOGLOBIN 14.6 GM/DL (13.0-17.0); LYMPH % 14.2 % (9.0-44.0); LYMPHOCYTE # 1.9 TH/MM3 (1.0-4.8); MEAN CELL VOLUME 86.2 FL (80.0-100.0); MEAN CORPUSCULAR HEMOGLOBIN 28.6 PG (27.0-34.0); MEAN CORPUSCULAR HGB CONC 33.2 % (32.0-36.0); MEAN PLATELET VOLUME 10.2 FL (7.0-11.0); MONO % 7.8 % (0.0-8.0); MONOCYTE # 1.1 TH/MM3 (0-0.9); NEUT % 73.7 % (16.0-70.0); PLATELET COUNT 282 TH/MM3 (150-450); RED BLOOD COUNT 5.12 MIL/MM3 (4.50-5.90); RED CELL DISTRIBUTION WIDTH 16.1 % (11.6-17.2); WHITE BLOOD COUNT 13.6 TH/MM3 (4.0-11.0)
[2017-08-17 05:12] LABS: PROTHROMBIN TIME - PATIENT 10.4 SEC (9.8-11.6)
[2017-08-17 05:36] LABS: ALBUMIN 3.7 GM/DL (3.4-5.0); ALT (GPT) 17 U/L (12-78); AST (GOT) 14 U/L (15-37); BICARBONATE 26.4 MEQ/L (21.0-32.0); BLOOD UREA NITROGEN 16 MG/DL (7-18); CHLORIDE 108 MEQ/L (98-107); CREATININE 1.47 MG/DL (0.60-1.30); GLOMERULAR FILTRATION RATE 50 ML/MIN (>89); GLUCOSE,RANDOM 117 MG/DL (74-106); SODIUM (NA) 140 MEQ/L (136-145)
--- NOTE | 2017-08-17 05:36 | PD ---
HPI Chief Complaint: Altered Mental Status Time Seen by Provider: 04:19 Travel History International Travel<30 days: No Contact w/Intl Traveler<30days: No Traveled to known affect area: No History of Present Illness HPI This is a 52-year-old male with a history of cardiomyopathy, CHF, COPD, hypertension, previous TIAs, presents today after friends of his noted him to be confused and shaking. When paramedics arrived, they stated he was still shaking however he was able to answer questions. The patient is here and confused and unable to give history of his medical issues. Looking through old records, I was able to get his old medical history. Apparently the patient is on Xarelto. PFSH Past Medical History Hx Anticoagulant Therapy: Yes (XARELTO) Arthritis: Yes Asthma: Yes Autoimmune Disease: No Blood Disorders: No Anxiety: Yes Depression: Yes Heart Rhythm Problems: Yes (CHF) Cancer: Yes (right renal mass) Cardiovascular Problems: Yes (CHF, NONISCHEMIC CARDIOMYOPATHY) High Cholesterol: No Chemotherapy: No Chest Pain: No Congestive Heart Failure: Yes COPD: Yes Cerebrovascular Accident: Yes (TIA APR 2017) Diabetes: No Diminished Hearing: No Endocrine: No Fibromyalgia: Yes Gastrointestinal Disorders: Yes GERD: Yes Hiatal Hernia: No Hypertension: Yes Immune Disorder: Yes (FIBROMYALGIA) Musculoskeletal: Yes (OA) Neurologic: No Psychiatric: Yes Reproductive: No Respiratory: Yes (COPD, ASTHMA, SLEEP APNEA) Integumentary: Yes (reoccuring shingles) Immunizations Current: Yes Migraines: Yes Radiation Therapy: No Renal Failure: Yes Sleep Apnea: Yes Thyroid Disease: No Past Surgical History Abdominal Surgery: No AICD: No Cardiac Surgery: No Ear Surgery: No Endocrine Surgery: No Eye Surgery: No Genitourinary Surgery: Yes (left kidney removed) Gynecologic Surgery: No Joint Replacement: No Pacemaker: No Thoracic Surgery: No Other Surgery: Yes Social History Alcohol Use: No Tobacco Use: Yes (1/2 PACK/DAY) Substance Use: No Allergies-Medications (Allergen,Severity, Reaction): Coded Allergies: levofloxacin (Verified Allergy, Mild, EDEMA, 08/17/17) tramadol (Verified Allergy, Mild, Itchy, 08/17/17) ibuprofen (Verified Adverse Reaction, Severe, Nausea/Vomiting, 08/17/17) Reported Meds & Prescriptions Reported Meds & Active Scripts Active Ventolin Hfa 18 GM Inh (Albuterol Sulfate) 90 Mcg/Act Aer 2 Puff INH Q4-6H PRN Lasix (Furosemide) 40 Mg Tab 40 Mg PO BID Lisinopril 5 Mg Tab 5 Mg PO DAILY Zyloprim (Allopurinol) 100 Mg Tab 100 Mg PO DAILY Albuterol Neb (Albuterol Sulfate) 2.5 Mg/3 Ml Neb 2.5 Mg NEB Q4HR NEB While awake Xarelto (Rivaroxaban) 20 Mg Tab 20 Mg PO DAILY Reported Carvedilol 6.25 Mg Tab 6.25 Mg PO BID Review of Systems ROS Limitations: Clinical Condition (unable to obtain accurate review of systems) Except as stated in HPI: all other systems reviewed are Neg Physical Exam Narrative GENERAL: Well-developed well-nourished male in no acute rest her distress. SKIN: Focused skin assessment warm/dry. HEAD: Atraumatic. Normocephalic. EYES: No scleral icterus. No injection or drainage. ENT: No nasal bleeding or discharge. Mucous membranes pink and moist. NECK: Trachea midline. No JVD. Supple. CARDIOVASCULAR: Regular rate in the 90s and normal rhythm. No murmur appreciated. RESPIRATORY: No accessory muscle use. Clear to auscultation. Breath sounds equal bilaterally. GASTROINTESTINAL: Abdomen soft, non-tender, nondistended. Hepatic and splenic margins not palpable. MUSCULOSKELETAL: No obvious deformities. No clubbing. No cyanosis. No edema. NEUROLOGICAL: Awake and confused.. No obvious cranial nerve deficits. Motor grossly within normal limits. Normal speech. Data Data Last Documented VS Vital Signs Date Time Temp Pulse Resp B/P (MAP) Pulse Ox O2 Delivery O2 Flow Rate FiO2 08/17/17 04:54 97 Room Air 08/17/17 04:15 98.3 104 22 137/72 (93) Orders Orders Electrocardiogram (08/17/17 04:30) Ammonia (08/17/17 04:30) Complete Blood Count With Diff (08/17/17 04:30) Comprehensive Metabolic Panel (08/17/17 04:30) Creatine Kinase (Cpk) (08/17/17 04:30) Prothrombin Time / Inr (Pt) (08/17/17 04:30) Act Partial Throm Time (Ptt) (08/17/17 04:30) Troponin I (08/17/17 04:30) Urinalysis - C+S If Indicated (08/17/17 04:30) Chest, Single Ap (08/17/17 04:30) Ct Brain W/O Iv Contrast(Rout) (08/17/17 04:30) Blood Glucose (08/17/17 04:30) Ecg Monitoring (08/17/17 04:30) Iv Access Insert/Monitor (08/17/17 04:30) Oximetry (08/17/17 04:30) Sodium Chloride 0.9% Flush (Ns Flush) (08/17/17 04:30) Sodium Chlor 0.9% 1000 Ml Inj (Ns 1000 M (08/17/17 04:30) Drug Screen, Random Urine (08/17/17 04:30) CKMB (08/17/17 04:50) CKMB% (08/17/17 04:50) Alcohol (Ethanol) (08/17/17 04:50) Labs Laboratory Tests Test 08/17/17 04:50 08/17/17 06:50 White Blood Count 13.6 TH/MM3 Red Blood Count 5.12 MIL/MM3 Hemoglobin 14.6 GM/DL Hematocrit 44.1 % Mean Corpuscular Volume 86.2 FL Mean Corpuscular Hemoglobin 28.6 PG Mean Corpuscular Hemoglobin Concent 33.2 % Red Cell Distribution Width 16.1 % Platelet Count 282 TH/MM3 Mean Platelet Volume 10.2 FL Neutrophils (%) (Auto) 73.7 % Lymphocytes (%) (Auto) 14.2 % Monocytes (%) (Auto) 7.8 % Eosinophils (%) (Auto) 3.2 % Basophils (%) (Auto) 1.1 % Neutrophils # (Auto) 10.0 TH/MM3 Lymphocytes # (Auto) 1.9 TH/MM3 Monocytes # (Auto) 1.1 TH/MM3 Eosinophils # (Auto) 0.4 TH/MM3 Basophils # (Auto) 0.2 TH/MM3 CBC Comment DIFF FINAL Differential Comment Prothrombin Time 10.4 SEC Prothromb Time International Ratio 1.0 RATIO Activated Partial Thromboplast Time 25.7 SEC Blood Urea Nitrogen 16 MG/DL Creatinine 1.47 MG/DL Random Glucose 117 MG/DL Total Protein 8.2 GM/DL Albumin 3.7 GM/DL Calcium Level 9.0 MG/DL Alkaline Phosphatase 118 U/L Aspartate Amino Transf (AST/SGOT) 14 U/L Alanine Aminotransferase (ALT/SGPT) 17 U/L Total Bilirubin 0.4 MG/DL Sodium Level 140 MEQ/L Potassium Level 4.1 MEQ/L Chloride Level 108 MEQ/L Carbon Dioxide Level 26.4 MEQ/L Anion Gap 6 MEQ/L Estimat Glomerular Filtration Rate 50 ML/MIN Ammonia 19 MCMOL/L Total Creatine Kinase 339 U/L Creatine Kinase MB 3.9 NG/ML Creatine Kinase MB % 1.2 % Troponin I LESS THAN 0.02 NG/ML Ethyl Alcohol Level LESS THAN 3 MG/DL MDM Medical Decision Making Medical Screen Exam Complete: Yes Emergency Medical Condition: Yes Interpretation(s) Last [address] 08/17/17429 Signed Impressions: Service Date/Time: Thursday, August 17, 2017 05:58 - CONCLUSION: No acute disease. Delroy Cameron MD Chest X-Ray [id number]/[id number] Signed Impressions: Service Date/Time: Thursday, August 17, 2017 04:41 - CONCLUSION: No acute disease. Delroy Cameron MD Differential Diagnosis Seizure versus TIA versus CVA versus metabolic arrangement versus intoxication Narrative Course 52-year-old male presents after and found with altered mental status. There are reports of tremors and possible seizure activity. The patient is on anticoagulation for his cardiomyopathy. A friend who came after the patient was seen and evaluated reports that at times he is use substances he should not. Urine toxicology is pending at this time. CT brain shows no evidence of acute injury. The patient is still confused and not acting normal. The patient was signed out to Dr. Benny Sanchez, physician replacing me at change of shift. Pending all of his workup, disposition will be made per Dr. Sanchez. I anticipate the patient will need to be admitted for the altered mental status. Diagnosis Primary Impression: Altered mental status Additional Impressions: Nonischemic cardiomyopathy history of renal cell carcinoma Geovanny Piedra MD Aug 17, 2017 05:36
[2017-08-17 05:39] LABS: ALKALINE PHOSPHATASE 118 U/L (45-117); TOTAL BILIRUBIN ADULT 0.4 MG/DL (0.2-1.0); TOTAL PROTEIN 8.2 GM/DL (6.4-8.2); TROPONIN I LESS THAN 0.02 NG/ML (0.02-0.05)
--- NOTE | 2017-08-17 06:33 | RADRPT ---
EXAM DATE/TIME: 08/17/2017 05:58 [facility] COMPARISON: CT BRAIN W/O CONTRAST, January 20, 2017, 1:51. INDICATIONS : Altered mental status. RADIATION DOSE: 69.15 CTDIvol (mGy) MEDICAL HISTORY : Hypertension. SURGICAL HISTORY : None. ENCOUNTER: Initial ACUITY: 1 day PAIN SCALE: Non-responsive LOCATION: cranial TECHNIQUE: Multiple contiguous axial images were obtained of the head. Using automated exposure control and adj ustment of the mA and/or kV according to patient size, radiation dose was kept as low as reasonably a chievable to obtain optimal diagnostic quality images. DICOM format image data is available electro nically for review and comparison. FINDINGS: CEREBRUM: The ventricles are normal for age. No evidence of midline shift, mass lesion, hemorrhage or acute in farction. No extra-axial fluid collections are seen. POSTERIOR FOSSA: The cerebellum and brainstem are intact. The 4th ventricle is midline. The cerebellopontine angle i s unremarkable. EXTRACRANIAL: The visualized portion of the orbits is intact. SKULL: The calvaria is intact. No evidence of skull fracture. CONCLUSION: No acute disease. Delroy Cameron MD on August 17, 2017 at 6:31 Board Certified Radiologist. This report was verified electronically.
[2017-08-17 07:18] LABS: BACTERIA, URINE OCC /hpf; BILIRUBIN, URINE NEG (NEG); BLOOD, URINE NEG (NEG); GLUCOSE,URINE NEG (NEG); HYALINE CAST, URINE 7 /lpf (RARE); KETONE, URINE NEG (NEG); MUCUS URINE FEW /lpf (OCC); NITRITE,URINE NEG (NEG); PH, URINE 5.5 (5.0-8.5); SQUAMOUS EPITHELIAL CELL URINE 2 /hpf (0-5); URINE COLOR YELLOW (YELLW/STRAW); URINE LEUKOCYTE ESTERASE TRACE (NEG)
--- NOTE | 2017-08-17 08:46 | PD ---
Physical Exam Narrative Patient was seen by ED physician and signed out to me. Data Data Last Documented VS Vital Signs Date Time Temp Pulse Resp B/P (MAP) Pulse Ox O2 Delivery O2 Flow Rate FiO2 08/17/17 04:54 97 Room Air 08/17/17 04:15 98.3 104 22 137/72 (93) Orders Orders Electrocardiogram (08/17/17 04:30) Ammonia (08/17/17 04:30) Complete Blood Count With Diff (08/17/17 04:30) Comprehensive Metabolic Panel (08/17/17 04:30) Creatine Kinase (Cpk) (08/17/17 04:30) Prothrombin Time / Inr (Pt) (08/17/17 04:30) Act Partial Throm Time (Ptt) (08/17/17 04:30) Troponin I (08/17/17 04:30) Urinalysis - C+S If Indicated (08/17/17 04:30) Chest, Single Ap (08/17/17 04:30) Ct Brain W/O Iv Contrast(Rout) (08/17/17 04:30) Blood Glucose (08/17/17 04:30) Ecg Monitoring (08/17/17 04:30) Iv Access Insert/Monitor (08/17/17 04:30) Oximetry (08/17/17 04:30) Sodium Chloride 0.9% Flush (Ns Flush) (08/17/17 04:30) Sodium Chlor 0.9% 1000 Ml Inj (Ns 1000 M (08/17/17 04:30) Drug Screen, Random Urine (08/17/17 04:30) CKMB (08/17/17 04:50) CKMB% (08/17/17 04:50) Alcohol (Ethanol) (08/17/17 04:50) Urine Culture (08/17/17 06:50) Ceftriaxone Inj (Rocephin Inj) (08/17/17 09:00) Labs Laboratory Tests Test 08/17/17 04:50 08/17/17 06:50 White Blood Count 13.6 TH/MM3 Red Blood Count 5.12 MIL/MM3 Hemoglobin 14.6 GM/DL Hematocrit 44.1 % Mean Corpuscular Volume 86.2 FL Mean Corpuscular Hemoglobin 28.6 PG Mean Corpuscular Hemoglobin Concent 33.2 % Red Cell Distribution Width 16.1 % Platelet Count 282 TH/MM3 Mean Platelet Volume 10.2 FL Neutrophils (%) (Auto) 73.7 % Lymphocytes (%) (Auto) 14.2 % Monocytes (%) (Auto) 7.8 % Eosinophils (%) (Auto) 3.2 % Basophils (%) (Auto) 1.1 % Neutrophils # (Auto) 10.0 TH/MM3 Lymphocytes # (Auto) 1.9 TH/MM3 Monocytes # (Auto) 1.1 TH/MM3 Eosinophils # (Auto) 0.4 TH/MM3 Basophils # (Auto) 0.2 TH/MM3 CBC Comment DIFF FINAL Differential Comment Prothrombin Time 10.4 SEC Prothromb Time International Ratio 1.0 RATIO Activated Partial Thromboplast Time 25.7 SEC Blood Urea Nitrogen 16 MG/DL Creatinine 1.47 MG/DL Random Glucose 117 MG/DL Total Protein 8.2 GM/DL Albumin 3.7 GM/DL Calcium Level 9.0 MG/DL Alkaline Phosphatase 118 U/L Aspartate Amino Transf (AST/SGOT) 14 U/L Alanine Aminotransferase (ALT/SGPT) 17 U/L Total Bilirubin 0.4 MG/DL Sodium Level 140 MEQ/L Potassium Level 4.1 MEQ/L Chloride Level 108 MEQ/L Carbon Dioxide Level 26.4 MEQ/L Anion Gap 6 MEQ/L Estimat Glomerular Filtration Rate 50 ML/MIN Ammonia 19 MCMOL/L Total Creatine Kinase 339 U/L Creatine Kinase MB 3.9 NG/ML Creatine Kinase MB % 1.2 % Troponin I LESS THAN 0.02 NG/ML Ethyl Alcohol Level LESS THAN 3 MG/DL Urine Color YELLOW Urine Turbidity HAZY Urine pH 5.5 Urine Specific [place] 1.012 Urine Protein TRACE mg/dL Urine Glucose (UA) NEG mg/dL Urine Ketones NEG mg/dL Urine Occult Blood NEG Urine Nitrite NEG Urine Bilirubin NEG Urine Urobilinogen LESS THAN 2.0 MG/DL Urine Leukocyte Esterase TRACE Urine RBC 4 /hpf Urine WBC 10 /hpf Urine Squamous Epithelial Cells 2 /hpf Urine Bacteria OCC /hpf Urine Hyaline Casts 7 /lpf Urine Mucus FEW /lpf Microscopic Urinalysis Comment CATH-CULTURE IND MDM Supervised Visit with MERLENE: No Interpretation(s) Last Impressions Head CT 08/17/17 0430 Signed Impressions: Service Date/Time: Thursday, August 17, 2017 05:58 - CONCLUSION: No acute disease. Delroy Cameron MD Chest X-Ray 08/17/17 0430 Signed Impressions: Service Date/Time: Thursday, August 17, 2017 04:41 - CONCLUSION: No acute disease. Delroy Cameron MD 8:39 AM. CBC WBC 13.6. 73 neutrophil. Creatinine 1.47. GFR 50. Ammonia 19. Total CK 339 with normal MB fraction. Troponin normal. UA positive with WBC and bacteria. Alcohol negative. Narrative Course Patient was advised to be admitted for further workup. Patient refused admission. Patient wants to go home. Patient has a UTI. Rocephin 1 g IV given. Diagnosis Primary Impression: Altered mental status Qualified Codes: R40.4 - Transient alteration of awareness Additional Impressions: Nonischemic cardiomyopathy history of renal cell carcinoma UTI (urinary tract infection) Qualified Codes: N30.00 - Acute cystitis without hematuria Patient Instructions: General Instructions Additional Instruction: Bactrim DS as directed. Follow-up with personal physician. Return if worse. Med/Other Pt SpecificInfo: Prescription(s) given Scripts Sulfamethoxazole-Trimethoprim (Bactrim DS) 800-160 Mg Tab 1 TAB PO BID for Infection, #20 TAB 0 Refills Prov: Benny Sanchez MD 08/17/17 Disposition: 01 DISCHARGE HOME Condition: Stable Benny Sanchez MD Aug 17, 2017 08:46
[2017-08-17] MEDS ORDERED: BACT800T5 PO (08:48)
[2017-08-17] MEDS ORDERED: cefTRIAXone INJ 1,000 MG in SODIUM CHLORIDE 0.9% INJ 100 ML IV ONE (09:00)
[2017-08-17 10:09] VITALS: BP 125/85; PULSE 88; RESP 20; O2SAT 96
--- NOTE | 2017-08-17 12:41 | EKG ---
Date Performed: 08/17/2017 Time Performed: 05:11:00 PTAGE: 52 years EKG: Sinus rhythm POSSIBLE RIGHT ATRIAL ENLARGEMENT BORDERLINE LEFT AXIS DEVIATION POSSIBLE RIGHT VENTRICULAR CONDUCTI ON DELAY NONSPECIFIC ST & T-WAVE ABNORMALITY BORDERLINE ECG PREVIOUS TRACING : 07/11/2017 17.52 Since previous tracing, no significant change noted DOCTOR: Deyvi Galan Interpretating Date/Time 08/17/2017 12:39:22
== END 2017-08-17 10:09 | disposition home or self-care (01) ==
LOC: NEPE 04:14
DX: R40.4 Transient alteration of awareness (principal); I42.9 Cardiomyopathy, unspecified; N30.00 Acute cystitis without hematuria; B96.89 Other specified bacterial agents as the cause of diseases classified elsewhere; I11.0 Hypertensive heart disease with heart failure; I50.9 Heart failure, unspecified; J44.9 Chronic obstructive pulmonary disease, unspecified; F17.200 Nicotine dependence, unspecified, uncomplicated; R06.02 Shortness of breath; Z79.01 Long term (current) use of anticoagulants; Z79.899 Other long term (current) drug therapy; Z85.528 Personal history of other malignant neoplasm of kidney
CPT/HCPCS: 70450; 71010; 80053; 80307; 81001; 82140; 82550; 82552; 84484; 85025; 85610; 85730; 87086; 93005; 96361; 96365; 99285; J0696; J7030

== ENCOUNTER 2017-09-29 19:52 | Emergency (ER) | payer OTHER ==
[~2017-09-29] VITALS: Ht 188 cm; Wt 78.2 kg
[~2017-09-29 19:52] MED LIST changes: +BACT800T5 PO
[2017-09-29 19:56] VITALS: BP 114/81; PULSE 95; RESP 20; TEMP 99; O2SAT 95
--- NOTE | 2017-09-29 21:43 | PD ---
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 No radiation. Onset at rest. The patient states that he first had a "twinge" yesterday accompanied by mild nausea. He states that the nausea has since resolved. He states that around 3:00 this afternoon the back pain came on suddenly and has been constant and steady since that time. No alleviating or exacerbating factors reported. He denies fever, chills, chest pain, shortness of breath, abdominal pain, dysuria, saddle anesthesia, numbness, tingling, weakness of the lower extremities. He states that he feels like his symptoms are related to his kidney problems. No treatment attempted at home. PFSH Past Medical History Hx Anticoagulant Therapy: Yes (XARELTO) Arthritis: Yes Asthma: Yes Autoimmune Disease: No Blood Disorders: No Anxiety: Yes Depression: Yes Heart Rhythm Problems: Yes (CHF) Cancer: Yes (right renal mass) Cardiovascular Problems: Yes (CHF, NONISCHEMIC CARDIOMYOPATHY) High Cholesterol: No Chemotherapy: No Chest Pain: No Congestive Heart Failure: Yes COPD: Yes Cerebrovascular Accident: Yes (TIA APR 2017) Diabetes: No Diminished Hearing: No Endocrine: No Fibromyalgia: Yes Gastrointestinal Disorders: Yes GERD: Yes Hiatal Hernia: No Hypertension: Yes Immune Disorder: Yes (FIBROMYALGIA) Musculoskeletal: Yes (OA) Neurologic: No Psychiatric: Yes Reproductive: No Respiratory: Yes (COPD, ASTHMA, SLEEP APNEA) Integumentary: Yes (reoccuring shingles) Immunizations Current: Yes Migraines: Yes Radiation Therapy: No Renal Failure: Yes Sleep Apnea: Yes Thyroid Disease: No Past Surgical History Abdominal Surgery: No AICD: No Cardiac Surgery: No Ear Surgery: No Endocrine Surgery: No Eye Surgery: No Genitourinary Surgery: Yes (left kidney removed) Gynecologic Surgery: No Joint Replacement: No Pacemaker: No Thoracic Surgery: No Other Surgery: Yes Social History Alcohol Use: No Tobacco Use: Yes (1/2 PACK/DAY) Substance Use: No Allergies-Medications (Allergen,Severity, Reaction): Coded Allergies: Sulfa (Sulfonamide Antibiotics) (Verified Allergy, Severe, Shortness of Breath, 09/29/17) levofloxacin (Verified Allergy, Mild, EDEMA, 08/17/17) tramadol (Verified Allergy, Mild, Itchy, 08/17/17) ibuprofen (Verified Adverse Reaction, Severe, Nausea/Vomiting, 08/17/17) Reported Meds & Prescriptions Reported Meds & Active Scripts Active Flexeril (Cyclobenzaprine HCl) 10 Mg Tab 10 Mg PO TID Bactrim DS (Sulfamethoxazole-Trimethoprim) 800-160 Mg Tab 1 Tab PO BID Ventolin Hfa 18 GM Inh (Albuterol Sulfate) 90 Mcg/Act Aer 2 Puff INH Q4-6H PRN Lasix (Furosemide) 40 Mg Tab 40 Mg PO BID Lisinopril 5 Mg Tab 5 Mg PO DAILY Zyloprim (Allopurinol) 100 Mg Tab 100 Mg PO DAILY Albuterol Neb (Albuterol Sulfate) 2.5 Mg/3 Ml Neb 2.5 Mg NEB Q4HR NEB While awake Xarelto (Rivaroxaban) 20 Mg Tab 20 Mg PO DAILY Reported Carvedilol 6.25 Mg Tab 6.25 Mg PO BID Review of Systems Except as stated in HPI: all other systems reviewed are Neg Physical Exam Narrative GENERAL: Well-nourished, well-developed thin white male in no acute distress. SKIN: Focused skin assessment warm/dry. Well-healed surgical scar in the right flank without signs of infection. HEAD: Normocephalic. EYES: No scleral icterus. No injection or drainage. NECK: Supple, trachea midline. No JVD or lymphadenopathy. CARDIOVASCULAR: Regular rate and rhythm without murmurs, gallops, or rubs. RESPIRATORY: Breath sounds clear and equal bilaterally. No accessory muscle use. GASTROINTESTINAL: Abdomen soft, non-tender, nondistended. Active bowel sounds. MUSCULOSKELETAL: No cyanosis, or edema. 5/5 strength in the bilateral lower extremities. Straight leg raise negative bilaterally. BACK: No obvious deformity. No CVA tenderness. No midline tenderness to palpation. Data Data Last Documented VS Vital Signs Date Time Temp Pulse Resp B/P (MAP) Pulse Ox O2 Delivery O2 Flow Rate FiO2 09/29/17 19:56 99.0 95 20 114/81 (92) 95 Orders Orders Acetamin-Hydrocod 325-5 Mg ([place] 5-325 (09/29/17 21:45) Urinalysis - C+S If Indicated (09/29/17 21:31) Ed Discharge Order (09/29/17 22:36) Labs Laboratory Tests Test 09/29/17 21:59 Urine Color STRAW Urine Turbidity CLEAR Urine pH 5.0 Urine Specific [place] 1.005 Urine Protein NEG mg/dL Urine Glucose (UA) NEG mg/dL Urine Ketones NEG mg/dL Urine Occult Blood NEG Urine Nitrite NEG Urine Bilirubin NEG Urine Urobilinogen LESS THAN 2.0 MG/DL Urine Leukocyte Esterase NEG Urine RBC LESS THAN 1 /hpf Urine WBC 1 /hpf Urine Mucus FEW /lpf Microscopic Urinalysis Comment CULT NOT INDICATED MDM Medical Decision Making Medical Screen Exam Complete: Yes Emergency Medical Condition: Yes Differential Diagnosis Acute on chronic back pain versus pyelonephritis versus full pain versus drug- seeking behavior versus other Narrative Course 52-year-old male with PMH of CAD, COPD, HTN, CHF, 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 No radiation. Onset at rest. Study since 3 PM today. Denies fever, chills, chest pain, shortness of breath, abdominal pain, dysuria, saddle anesthesia, numbness, tingling, weakness of the lower extremities. He states that he feels like his symptoms are related to his kidney problems. No treatment attempted at home. Patient is afebrile, pulse 95 on presentation. Physical exam reveals a thin white male, sitting up in the bed eating a banana in no acute distress. Abdominal exam is completely benign. No midline tenderness or CVA tenderness of the back. Straight leg raise negative bilaterally. Patient was administered 5 mg [place] by mouth. No culture indicated of the UA. This is muscular skeletal back pain. Patient is prescribed a few doses of Flexeril. Patient instructed to treat symptomatically , use Tylenol as described on the label, as needed, follow up with primary care provider,return for worsening symptoms. He is stable and discharged home. Diagnosis Primary Impression: Low back pain Qualified Codes: M54.5 - Low back pain Referrals: Primary Care Physician Patient Instructions: Acute Low Back Pain (ED), General Instructions Additional Instructions: Rest, hydrate. Return to normal, gentle activity as tolerated. A mixture of rest and activity as best for back pain. Warm compresses or ice packs applied a few times a day may also help to improve your symptoms. Do not apply ice longer than 15 minutes per session. Take muscle relaxants as prescribed. Do not drive while taking muscle relaxants. Take Tylenol as described on the label, as needed for continued pain. Follow-up with primary care provider. Return to the ED for any urgent or emergent medical condition. Scripts Cyclobenzaprine (Flexeril) 10 Mg Tab 10 MG PO TID for Muscle Spasm, #10 TAB 0 Refills Prov: Sajan Banuelos MD 09/29/17 Disposition: 01 DISCHARGE HOME Condition: Stable Liz Saha Sep 29, 2017 21:43
[2017-09-29] MEDS ORDERED: ACETAMINOPHEN/HYDROcodone 325 MG/5 MG TAB PO ONE (21:45)
[2017-09-29 22:30] LABS: BILIRUBIN, URINE NEG (NEG); BLOOD, URINE NEG (NEG); GLUCOSE,URINE NEG (NEG); KETONE, URINE NEG (NEG); MUCUS URINE FEW /lpf (OCC); NITRITE,URINE NEG (NEG); URINE LEUKOCYTE ESTERASE NEG (NEG)
[2017-09-29 22:31] LABS: URINE COLOR STRAW (YELLW/STRAW)
[2017-09-29] MEDS ORDERED: CYCL10TA PO (22:40)
== END 2017-09-29 22:56 | disposition home or self-care (01) ==
LOC: NEPE 19:52
DX: M54.5 Low back pain (principal); I11.0 Hypertensive heart disease with heart failure; I50.9 Heart failure, unspecified; I25.10 Atherosclerotic heart disease of native coronary artery without angina pectoris; F17.200 Nicotine dependence, unspecified, uncomplicated; J44.9 Chronic obstructive pulmonary disease, unspecified; M79.7 Fibromyalgia; Z79.01 Long term (current) use of anticoagulants; Z85.528 Personal history of other malignant neoplasm of kidney
CPT/HCPCS: 81001; 99283

== ENCOUNTER 2018-06-26 19:59 | Inpatient (IN) ==
--- NOTE | 2018-06-26 20:59 | ED ---
HPI General Chief complaint: Respiratory Symptoms Stated complaint: breathing issues Time Seen by Provider: 06/26/18 20:33 Source: patient Limitations: no limitations History of Present Illness HPI narrative: The patient is a 53 year old male who presents to the [facility] emergency department with a history of dyspnea on exertion, lightheaded sensation that he reports began earlier today. The patient reports having intermittent left-sided chest tightness/aching sensation. He reports that the pain feels musculoskeletal. He denies having any chest wall pain to touch, however but he reports that his skin feels tender all over. The patient reports that he does have a cough, however he reports having a chronic cough that is coming and going. He denies having any increased productivity to his cough. He denies having any increased lower extremity edema, calf pain, or erythema. The patient does have a history of nonischemic cardiomyopathy. The patient reports that he has been compliant with taking his Lasix and did take it earlier today. He reports that he also is compliant with taking his Xarelto which she took earlier today. The patient reports on review of systems that he does feel like he may have had a fever earlier today, however he did not check his temperature. He denies having any neck pain, abdominal pain, vomiting, diarrhea, urinary symptoms, or neurologic symptoms. He reports that his last bowel movement was earlier today. Related Data Home Medications Medication Instructions Recorded Confirmed gabapentin 3 tab PO TID 06/26/18 06/26/18 lisinopril 2.5 mg PO DAILY 06/26/18 06/26/18 rivaroxaban [Xarelto] 10 mg PO DAILY 06/26/18 06/26/18 Allergies Allergy/AdvReac Type Severity Reaction Status Date / Time Sulfa (Sulfonamide Allergy Severe Shortness Verified 06/26/18 20:10 Antibiotics) of Breath levofloxacin Allergy Mild EDEMA Verified 06/26/18 20:10 tramadol Allergy Mild Itchy Verified 06/26/18 20:10 ibuprofen AdvReac Severe Nausea/Vomi Verified 06/26/18 20:10 ting Review of Systems ROS: all other systems reviewed are negative [facility] Medical History Medical History Asthma (Acute) CHF (congestive heart failure) (Acute) COPD (chronic obstructive pulmonary disease) (Acute) Cancer of kidney (Acute) Chronic renal failure (Acute) Hypertension (Acute) S/p nephrectomy (Acute) Surgical History Surgical History H/O knee surgery (Acute) Family History Family History Other Family history non-contributory Social History Social History Substance History: No History of Abuse Second Hand Smoke Exposure: No Smoking Status: Former smoker Tobacco Type: Cigarettes How Often Do You Have a Drink Containing Alcohol: Never Recent Travel in [facility] within the Last 8 Weeks: No Recent Out of Country Travel within the Last 8 Weeks: No Immunization History Tetanus Immunization: <5 Years Exam Const General: cooperative, no acute distress and well developed Nutritional Appearance: well nourished Orientation: alert, awake and oriented x3 HENMT Head: normocephalic and atraumatic Nose: no nasal discharge and no epistaxis Mouth: moist mucous membranes Eyes Sclera: normal sclerae Pupils: PERRL Neck Neck: trachea midline and no JVD Resp Effort & Inspection: no use of accessory muscles Auscultation: wheezes (Soft expiratory wheezes audible bilaterally, anteriorly. No rhonchi, no crackles. No accessory muscle use noted. No paroxysmal abdominal breathing. No tripoding. No conversational dyspnea.) Cardio Rate: regular rate Rhythm: regular rhythm Heart Sounds: no murmurs GI Inspection: non-distended Palpation: soft, no hepatosplenomegaly and nontender Back/Spine/Pelvis Back: no CVA tenderness Skin General: dry skin (warm) Neuro General: alert, awake, oriented x3 and other Speech: speech normal Motor: no movement abnormalities noted Extrem General: normal to inspection, no calf tenderness bilaterally, no clubbing, no cyanosis and no edema Psych Mood: congruent mood Affect: normal affect Judgment: judgment good Course Consultations Consultation #1: The patient's case including history, pertinent physical examination findings, and laboratory studies were discussed with Dr. Mayen. It was agreed that the patient would be admitted to the hospitalist service. Initial Documented Vital Signs Temperature 98.5 F 06/26/18 20:07 Pulse Rate 114 H 06/26/18 20:07 Respiratory Rate 22 06/26/18 20:07 Blood Pressure 106/59 L 06/26/18 20:07 Pulse Oximetry 95 06/26/18 20:07 Last Documented Vital Signs Temperature 99.7 F H 06/27/18 20:00 Pulse Rate 99 H 06/27/18 20:00 Respiratory Rate 20 06/27/18 20:00 Blood Pressure 85/52 L 06/27/18 20:00 Pulse Oximetry 95 06/27/18 20:00 Medical Decision Making MDM Narrative Medical decision making narrative: During the course of the patient's emergency department visit, the patient's history, examination, and differential diagnosis were reviewed with the patient. The patient was placed on a hospital monitor with oximetry and frequent blood pressure monitoring. The patient had IV access obtained and blood work sent for analysis. The patient was initially provided nitroglycerin 1 inch the chest wall, aspirin 81 mg p.o. x1. The patient's diagnostic evaluation is remarkable for a white count of 3.9, hemoglobin 13.9, platelets 109 the patient with a history of thrombocytopenia previously, neutrophils 75, PT 10, PTT 32.7, chemistry is remarkable for a BUN of creatinine 1.47, calcium 7.7, troponin I is elevated at 0.13, BNP 362, lipase 182. A chest x-ray showed atelectasis, no other acute abnormality, CTA to rule out PE showed no evidence of pulmonary embolism. Nonspecific upper limits of normal to mildly enlarged right hilar lymph nodes, 17 mm right upper lobe nodule, basilar predominant inflammatory appearing infiltrates, mildly aneurysmal descending aorta and coronary artery calcifications. The patient's results were discussed with the patient, including the plan of care. I explained that further testing and/ or monitoring is indicated based on the patient's history, examination, and/ or laboratory findings. Therefore, I recommended admission for additional evaluation. The patient expressed understanding and was agreeable with this plan. The patient was admitted to the hospital in guarded condition and sent to a bed under the care of the [facility] service. Medical Screen Exam Complete: Yes Emergency Medical Condition: Yes Differential Diagnosis Differential Diagnosis: COPD exacerbation, versus acute coronary syndrome, versus pneumonia, versus influenza Medical Records Medical records reviewed: Yes I reviewed the patient's medical records. Lab Data Lab results reviewed: Yes I reviewed the patient's lab results. Result diagrams: 06/26/18 21:10 06/27/18 17:47 Lab Results 06/26/18 06/26/18 06/26/18 Range/Units 21:10 21:10 21:10 WBC 3.9 L (4.0-11.0) th/mm3 RBC 5.01 (4.50-5.90) mil/mm3 Hgb 13.9 (13.0-17.0) gm/dL Hct 41.2 (39.0-51.0) % MCV 82.2 (80.0-100.0) fL MCH 27.6 (27.0-34.0) pg MCHC 33.6 (32.0-36.0) % RDW 15.5 (11.6-17.2) % Plt Count 109 L (150-450) th/mm3 MPV 11.8 H (7.0-11.0) fL Neut % (Auto) 75.0 H (16.0-70.0) % Lymph % (Auto) 17.4 (9.0-44.0) % [place]mort[place] % (Auto) 6.9 (0.0-8.0) % Eos % (Auto) 0.3 (0.0-4.0) % Baso % (Auto) 0.4 (0.0-2.0) % Neut # (Auto) 2.9 (1.8-7.7) th/mm3 Lymph # (Auto) 0.7 L (1.0-4.8) th/mm3 Throckmorton # (Auto) 0.3 (0.0-0.9) th/mm3 Eos # (Auto) 0.0 (0.0-0.4) th/mm3 Baso # (Auto) 0.0 (0.0-0.2) th/mm3 WBC Differential . Differential Comment Auto diff final PT (9.8-11.6) sec INR Ratio APTT (24.3-30.1) sec Sodium 132 L (136-145) meq/L Potassium 3.9 (3.5-5.1) meq/L Chloride 98 (98-107) meq/L Carbon Dioxide 27.1 (21.0-32.0) meq/L Anion Gap 7 (5-15) meq/L BUN 16 (7-18) mg/dL Creatinine 1.47 H (0.60-1.30) mg/dL Estimated GFR 50 L (>89) mL/min Random Glucose 78 (74-106) mg/dL Calcium 7.7 L (8.5-10.1) mg/dL Magnesium (1.5-2.5) mg/dL Total Bilirubin 0.2 (0.2-1.0) mg/dL AST 31 (15-37) U/L ALT 24 (12-78) U/L Alkaline Phosphatase 82 (45-117) U/L Total Creatine Kinase (39-308) U/L CK-MB (CK-2) (0.5-3.6) ng/mL Troponin I 0.13 H (0.02-0.05) ng/mL C-Reactive Protein (0.00-0.30) mg/dL B-Natriuretic Peptide 362 H (0-100) pg/mL Total Protein 6.6 (6.4-8.2) g/dL Albumin 2.9 L (3.4-5.0) g/dL Lipase 182 (73-393) U/L Urine Opiates Screen (Neg) Ur Barbiturates Screen (Neg) Ur Amphetamines Screen (Neg) U Benzodiazepines Scrn (Neg) Urine Cocaine Screen (Neg) U Cannabinoids Screen (Neg) 06/26/18 06/26/18 06/27/18 Range/Units 21:10 21:10 00:20 WBC (4.0-11.0) th/mm3 RBC (4.50-5.90) mil/mm3 Hgb (13.0-17.0) gm/dL Hct (39.0-51.0) % MCV (80.0-100.0) fL MCH (27.0-34.0) pg MCHC (32.0-36.0) % RDW (11.6-17.2) % Plt Count (150-450) th/mm3 MPV (7.0-11.0) fL Neut % (Auto) (16.0-70.0) % Lymph % (Auto) (9.0-44.0) % Th[place]morton % (Auto) (0.0-8.0) % Eos % (Auto) (0.0-4.0) % Baso % (Auto) (0.0-2.0) % Neut # (Auto) (1.8-7.7) th/mm3 Lymph # (Auto) (1.0-4.8) th/mm3 [place]morton # (Auto) (0.0-0.9) th/mm3 Eos # (Auto) (0.0-0.4) th/mm3 Baso # (Auto) (0.0-0.2) th/mm3 WBC Differential Differential Comment PT 10.0 (9.8-11.6) sec INR 1.0 Ratio APTT 32.7 H (24.3-30.1) sec Sodium (136-145) meq/L Potassium (3.5-5.1) meq/L Chloride (98-107) meq/L Carbon Dioxide (21.0-32.0) meq/L Anion Gap (5-15) meq/L BUN (7-18) mg/dL Creatinine (0.60-1.30) mg/dL Estimated GFR (>89) mL/min Random Glucose (74-106) mg/dL Calcium (8.5-10.1) mg/dL Magnesium 1.9 (1.5-2.5) mg/dL Total Bilirubin (0.2-1.0) mg/dL AST (15-37) U/L ALT (12-78) U/L Alkaline Phosphatase (45-117) U/L Total Creatine Kinase 199 (39-308) U/L CK-MB (CK-2) 3.1 (0.5-3.6) ng/mL Troponin I (0.02-0.05) ng/mL C-Reactive Protein (0.00-0.30) mg/dL B-Natriuretic Peptide (0-100) pg/mL Total Protein (6.4-8.2) g/dL Albumin (3.4-5.0) g/dL Lipase (73-393) U/L Urine Opiates Screen Neg (Neg) Ur Barbiturates Screen Neg (Neg) Ur Amphetamines Screen Pos H (Neg) U Benzodiazepines Scrn Pos H (Neg) Urine Cocaine Screen Neg (Neg) U Cannabinoids Screen Pos H (Neg) 06/27/18 06/27/18 06/27/18 Range/Units 02:52 10:45 17:47 WBC (4.0-11.0) th/mm3 RBC (4.50-5.90) mil/mm3 Hgb (13.0-17.0) gm/dL Hct (39.0-51.0) % MCV (80.0-100.0) fL MCH (27.0-34.0) pg MCHC (32.0-36.0) % RDW (11.6-17.2) % Plt Count (150-450) th/mm3 MPV (7.0-11.0) fL Neut % (Auto) (16.0-70.0) % Lymph % (Auto) (9.0-44.0) % Th[place]morton % (Auto) (0.0-8.0) % Eos % (Auto) (0.0-4.0) % Baso % (Auto) (0.0-2.0) % Neut # (Auto) (1.8-7.7) th/mm3 Lymph # (Auto) (1.0-4.8) th/mm3 [place]morton # (Auto) (0.0-0.9) th/mm3 Eos # (Auto) (0.0-0.4) th/mm3 Baso # (Auto) (0.0-0.2) th/mm3 WBC Differential Differential Comment PT (9.8-11.6) sec INR Ratio APTT (24.3-30.1) sec Sodium 136 (136-145) meq/L Potassium 3.6 (3.5-5.1) meq/L Chloride 102 (98-107) meq/L Carbon Dioxide 26.0 (21.0-32.0) meq/L Anion Gap 8 (5-15) meq/L BUN 19 H (7-18) mg/dL Creatinine 1.58 H (0.60-1.30) mg/dL Estimated GFR 46 L (>89) mL/min Random Glucose 112 H (74-106) mg/dL Calcium 7.5 L (8.5-10.1) mg/dL Magnesium (1.5-2.5) mg/dL Total Bilirubin (0.2-1.0) mg/dL AST (15-37) U/L ALT (12-78) U/L Alkaline Phosphatase (45-117) U/L Total Creatine Kinase 157 140 (39-308) U/L CK-MB (CK-2) (0.5-3.6) ng/mL Troponin I 0.11 H 0.10 H (0.02-0.05) ng/mL C-Reactive Protein 0.83 H (0.00-0.30) mg/dL B-Natriuretic Peptide (0-100) pg/mL Total Protein (6.4-8.2) g/dL Albumin (3.4-5.0) g/dL Lipase (73-393) U/L Urine Opiates Screen (Neg) Ur Barbiturates Screen (Neg) Ur Amphetamines Screen (Neg) U Benzodiazepines Scrn (Neg) Urine Cocaine Screen (Neg) U Cannabinoids Screen (Neg) Imaging Data Radiologist's impression: Chest CTA 06/26/18 00:00 CONCLUSION: 1. No pulmonary embolus. 2. Nonspecific upper limits of normal to mildly enlarged right hilar lymph nodes. 3. 17 mm right upper lobe pulmonary nodule. Outpatient PET CT recommended. 4. Basilar predominant inflammatory appearing infiltrates as described. 5. Mildly aneurysmal descending aorta and coronary artery calcification Chest X-Ray 06/26/18 20:53 CONCLUSION: Minimal basilar dependent atelectasis in the lungs. No effusion or pneumothorax. ECG Data Attestation: I personally reviewed and interpreted this ECG as follows: Interpretation: The patient had a EKG done on arrival. The patient's EKG reveals a sinus rhythm heart rate of 97, QRS duration is 101 ms. QTC is [address] segment elevation. The patient does have T wave inversions noted in lead I, II, aVL, V4, V5, and V6. Discharge Plan Discharge Disposition Patient Disposition: 30 Still Patient Discharge Details Diagnosis: Chest pain, Elevated troponin, Body aches Physicians Team ED Provider: Gladis Mallory Primary Care Provider: Jeniffer Bernal Attending Provider: Krista Hoang Other Providers: Mickie Chowdhury John V Discharge Interventions Interventions: ED Discharge Assessment Last Done: 06/27/18 00:59 Status ED Status: Left Department Discharge Information Discharge Date/Time: 06/27/18 00:59
--- NOTE | 2018-06-26 21:21 | XR ---
EXAM DATE: 06/26/2018 9:13 PM EDT AGE/SEX: 53 years / Male INDICATIONS: Chest Pain CLINICAL DATA: This is the patient's initial encounter. Patient reports that signs and symptoms have been present for 1 day and indicates a pain score of 0/10. MEDICAL/SURGICAL HISTORY: Hypertension. None. COMPARISON: POI, XR CHEST PA AND LAT, 04/13/2018. . FINDINGS: A single AP view of the chest demonstrates the lungs to be symmetrically aerated without evidence of mass, infiltrate or effusion. Minimal basilar dependent atelectasis in the lungs. The cardiomediastin al contours are unremarkable. Osseous structures are intact. CONCLUSION: Minimal basilar dependent atelectasis in the lungs. No effusion or pneumothorax. Electronically signed by: Raphael Oliveira MD 06/26/2018 9:20 PM EDT
[2018-06-26 21:52] LABS: Baso % (Auto) 0.4 % (0.0-2.0); Eos % (Auto) 0.3 % (0.0-4.0); Hematocrit 41.2 % (39.0-51.0); Hemoglobin 13.9 gm/dL (13.0-17.0); Lymph # (Auto) 0.7 th/mm3 (1.0-4.8); Lymph % (Auto) 17.4 % (9.0-44.0); Mean Corpuscular HGB Conc 33.6 % (32.0-36.0); Mean Corpuscular Hemoglobin 27.6 pg (27.0-34.0); Mean Corpuscular Volume 82.2 fL (80.0-100.0); Mean Platelet Volume 11.8 fL (7.0-11.0); Mono # (Auto) 0.3 th/mm3 (0.0-0.9); Mono % (Auto) 6.9 % (0.0-8.0); Neut # (Auto) 2.9 th/mm3 (1.8-7.7); Platelet Count 109 th/mm3 (150-450); Red Blood Count 5.01 mil/mm3 (4.50-5.90); Red Cell Distribution Width 15.5 % (11.6-17.2); White Blood Count 3.9 th/mm3 (4.0-11.0)
[2018-06-26 21:59] LABS: Activated Partial Thrombo Time 32.7 sec (24.3-30.1); Alanine Aminotransferase 24 U/L (12-78); Albumin 2.9 g/dL (3.4-5.0); Anion Gap 7 meq/L (5-15); Aspartate Aminotransferase 31 U/L (15-37); Blood Urea Nitrogen 16 mg/dL (7-18); Calcium 7.7 mg/dL (8.5-10.1); Carbon Dioxide 27.1 meq/L (21.0-32.0); Chloride 98 meq/L (98-107); Glomerular Filtration Rate 50 mL/min (>89); Glucose,Random 78 mg/dL (74-106); Lipase 182 U/L (73-393); Magnesium 1.9 mg/dL (1.5-2.5); Potassium 3.9 meq/L (3.5-5.1); Sodium 132 meq/L (136-145)
[2018-06-26 22:01] LABS: Creatine Kinase 199 U/L (39-308)
[2018-06-26 22:03] LABS: Alkaline Phosphatase 82 U/L (45-117); Total Protein 6.6 g/dL (6.4-8.2); Troponin I 0.13 ng/mL (0.02-0.05)
[2018-06-26 22:18] LABS: Creatine Kinase MB 3.1 ng/mL (0.5-3.6)
[2018-06-26] MEDS ORDERED: Bisacodyl 10 MG Supp RECTAL PRN (22:59)
--- NOTE | 2018-06-27 00:01 | CT ---
EXAM DATE: 06/26/2018 11:46 PM EDT AGE/SEX: 53 years / Male INDICATIONS: Shortness of breath; rule out pulmonary embolus. CLINICAL DATA: This is the patient's initial encounter. Patient reports that signs and symptoms have been present for 1 day and indicates a pain score of 0/10. MEDICAL/SURGICAL HISTORY: Chronic obstructive pulmonary disease. Congestive heart failure. Hypert ension. Nephrectomy, right. RADIATION DOSE: 10.58 CTDI (mGy) COMPARISON: No prior exams available for comparison. TECHNIQUE: Volumetric scanning was performed using a multi-row detector CT scanner during bolus infu vashti of 55 ml Omnipaque 350 (iohexol) nonionic water-soluble contrast as a single exam dose. The fidelina a was post processed with a variety of visualization algorithms including full volume maximum intensi ty projection and sliding thin slab reformation. Using automated exposure control and adjustment of the mA and/or kV according to patient size, radiation dose was kept as low as reasonably achievable t o obtain optimal diagnostic quality images. DICOM format image data is available electronically for review and comparison. FINDINGS: There is no pulmonary embolus. There are several right hilar lymph nodes that measure up to 1.4 cm in size. There is a right perihil ar nodule on series 302 image 53 that measures 1.7 cm. Tree-in-bud type nodular infiltrate seen of miguel th bases, generally mild but of more moderate severity in the left lower lobe. No lobar consolidation . No pleural effusion or pneumothorax. Left ventricle appears hypertrophied. Prominent ascending aorta at approximately 4.1 cm. The vessel tapers gradually through the arch. John nary artery atherosclerotic calcification present, including near the origins of both the right and l eft main. CONCLUSION: 1. No pulmonary embolus. 2. Nonspecific upper limits of normal to mildly enlarged right hilar lymph nodes. 3. 17 mm right upper lobe pulmonary nodule. Outpatient PET CT recommended. 4. Basilar predominant inflammatory appearing infiltrates as described. 5. Mildly aneurysmal descending aorta and coronary artery calcification Electronically signed by: Delroy Scott MD 06/26/2018 11:59 PM EDT
[2018-06-27 00:33] LABS: Amphetamine Screen,Urine Pos (Neg); Barbiturate Screen,Urine Neg (Neg); Cannabinoid Screen,Urine Pos (Neg); Cocaine Screen,Urine Neg (Neg)
[2018-06-27 00:36] LABS: Opiate Screen,Urine Neg (Neg)
--- NOTE | 2018-06-27 01:46 | P.HPIM ---
History of Present Illness Primary Care Physician: Jeniffer Bernal DO History of Present Illness: 53-year-old male with a history of pulmonary embolism, nonischemic cardiomyopathy with ejection fraction of 20% who presents with a 3-week history of progressively worsening dyspnea on exertion, one-week history of vague, intermittent left upper chest pain worse with deep breathing, 1 day history of subjective fevers, lightheadedness without syncope. Patient denies any change in his chronic cough. Patient does report running out of his Xarelto, however restarted all of his medications 3 weeks ago. Inpatient Certification: I certify that the inpatient services were ordered in accordance with Medicare regulations governing the order. This includes certification that hospital inpatient services are reasonable and necessary and in the case of services not specified as inpatient-only under 42 CFR 419.22(n), that they are appropriately provided as inpatient services in accordance to with the 2-midnight benchmark under 43 CFR 412.3(e) Estimated Total Length of Stay (Days): 2 Plans for Post Hospital Care: Home Review of Systems All other systems reviewed negative except as stated in HPI PMFSH - History History Provided By: Patient - Medical History Medical History: Medical History (Last Reviewed 06/27/18 @ 01:41 by Devonte Mayen MD) Asthma CHF (congestive heart failure) COPD (chronic obstructive pulmonary disease) Cancer of kidney Chronic renal failure Hypertension S/p nephrectomy - Surgical History Surgical History: Surgical History (Last Reviewed 06/27/18 @ 01:41 by Devonte Mayen MD) H/O knee surgery - Family History Family History: Family History (Last Updated 06/27/18 @ 01:41 by Devonte Mayen MD) Other Family history non-contributory - Tobacco History Second Hand Smoke Exposure: No Tobacco Use In Past 30 Days: No Smoking Status: Former smoker Tobacco Type: Cigarettes - Alcohol History How Often Do You Have a Drink Containing Alcohol: Never - Substance Use History Substance History: No History of Abuse - Travel History Recent Travel in the [place] Within the Last 8 Weeks: No Recent Travel Out of the Country Within the Last 8 Weeks: No - Immunization History Tetanus Immunization: <5 Years Tetanus Immunization Year if Known: 2016 Hx Influenza Vaccine This Season: No Medications and Allergies Active Medications: Active Medications Al Hydroxide/Mg Hydroxide (Milk Of Magnesia Liq) 30 ml PO Q12H PRN PRN Reason: Mild Constipation Bisacodyl (Dulcolax Supp) 10 mg RECTAL DAILY PRN PRN Reason: SEVERE CONSITIPATION Sodium Chloride (Ns Inj) 1,000 mls @ 65 mls/hr IV.CONT .[id number] KIMMY Lactulose (Lactulose Liq) 30 ml PO DAILY PRN PRN Reason: SEVERE CONSITIPATION Sennosides (Senokot) 17.2 mg PO Q12H PRN PRN Reason: Moderate Constipation Sodium Chloride (Ns Flush) 2 ml IV.FLUSH UNSCH PRN PRN Reason: FLUSH AFTER USING IV ACCESS Allergies Allergy/AdvReac Type Severity Reaction Status Date / Time Sulfa (Sulfonamide Allergy Severe Shortness Verified 06/26/18 20:10 Antibiotics) of Breath levofloxacin Allergy Mild EDEMA Verified 06/26/18 20:10 tramadol Allergy Mild Itchy Verified 06/26/18 20:10 ibuprofen AdvReac Severe Nausea/Vomi Verified 06/26/18 20:10 ting Home Medications Medication Instructions Recorded Confirmed Type gabapentin 3 tab PO TID 06/26/18 06/26/18 History lisinopril 2.5 mg PO DAILY 06/26/18 06/26/18 History rivaroxaban [Xarelto] 10 mg PO DAILY 06/26/18 06/26/18 History Exam Vital signs: Vital Signs 06/26/18 20:07 06/26/18 20:53 06/26/18 23:08 Temperature 98.5 F Pulse Rate 114 H 99 H 85 Respiratory Rate 22 18 17 Blood Pressure 106/59 L 96/62 L Pulse Oximetry 95 97 96 06/27/18 00:11 06/27/18 01:18 Temperature 99 F Pulse Rate 92 H 96 H Respiratory Rate 15 16 Blood Pressure 96/62 L 115/77 Pulse Oximetry 95 97 Intake & Output 06/26/18 06/26/18 06/27/18 06:59 18:59 06:59 Weight 82.9 kg Other: Weight On Admission 82.9 kg Narrative: GENERAL: Patient lying in bed. Appears uncomfortable. Somnolent, wakes up for exam. Oriented x3. SKIN: Warm and dry. HEAD: Atraumatic. Normocephalic. EYES: Pupils equal and round. No scleral icterus. No injection or drainage. ENT: No nasal bleeding or discharge. Mucous membranes pink and moist. NECK: Trachea midline. No JVD. CARDIOVASCULAR: Regular rate and rhythm. RESPIRATORY: No accessory muscle use. Clear to auscultation. Breath sounds equal bilaterally. GASTROINTESTINAL: Abdomen soft, non-tender, nondistended. Hepatic and splenic margins not palpable. MUSCULOSKELETAL: Extremities without clubbing, cyanosis, or edema. No obvious deformities. NEUROLOGICAL: Awake and alert. No obvious cranial nerve deficits. Motor grossly within normal limits. Five out of 5 muscle strength in the arms and legs. Normal speech. PSYCHIATRIC: Appropriate mood and affect; insight and judgment normal. Results - Labs CBC & Chem 7: 06/26/18 21:10 06/26/18 21:10 Labs: Short CBC 06/26/18 Range/Units 21:10 WBC 3.9 L (4.0-11.0) th/mm3 Hgb 13.9 (13.0-17.0) gm/dL Hct 41.2 (39.0-51.0) % Plt Count 109 L (150-450) th/mm3 BMP 06/26/18 21:10 Sodium 132 L Potassium 3.9 Chloride 98 Carbon Dioxide 27.1 BUN 16 Creatinine 1.47 H Calcium 7.7 L Cardiac Enzymes 06/26/18 06/26/18 Range/Units 21:10 21:10 Total Creatine Kinase 199 (39-308) U/L CK-MB (CK-2) 3.1 (0.5-3.6) ng/mL Troponin I 0.13 H (0.02-0.05) ng/mL Liver Function 06/26/18 Range/Units 21:10 Total Bilirubin 0.2 (0.2-1.0) mg/dL AST 31 (15-37) U/L ALT 24 (12-78) U/L Alkaline Phosphatase 82 (45-117) U/L Albumin 2.9 L (3.4-5.0) g/dL - Imaging Impressions Chest CTA 06/26/18 00:00 CONCLUSION: 1. No pulmonary embolus. 2. Nonspecific upper limits of normal to mildly enlarged right hilar lymph nodes. 3. 17 mm right upper lobe pulmonary nodule. Outpatient PET CT recommended. 4. Basilar predominant inflammatory appearing infiltrates as described. 5. Mildly aneurysmal descending aorta and coronary artery calcification Chest X-Ray 06/26/18 20:53 CONCLUSION: Minimal basilar dependent atelectasis in the lungs. No effusion or pneumothorax. Caprini VTE Risk Assessment Caprini VTE Risk Assessment: Moderate/High Risk (score >= 2) Caprini Risk Assessment Model: Point Value = 1 Point Value = 2 Point Value = 3 Point Value = 5 Age 41-60 Minor surgery BMI > 25 kg/m2 Swollen legs Varicose veins or History of unexplained or recurrent spontaneous Oral contraceptives or hormone replacement Sepsis (< 1 month) Serious lung disease, including pneumonia (< 1 month) Abnormal pulmonary function Acute myocardial infarction Congestive heart failure (< 1 month) History of inflammatory bowel disease Medical patient at bed rest Age 61-74 Arthroscopic surgery Major open surgery (> 45 min) Laparoscopic surgery (> 45 min) Malignancy Confined to bed (> 72 hours) Immobilizing plaster cast Central venous access Age >= 75 History of VTE Family history of VTE Factor V Leiden Prothrombin [id number] Lupus anticoagulant Anticardiolipin antibodies Elevated serum homocysteine Heparin-induced thrombocytopenia Other congenital or acquired thrombophilia Stroke (< 1 month) Elective arthroplasty Hip, pelvis, or leg fracture Acute spinal cord injury (< 1 month) Prophylaxis Regimen: Total Risk Factor Score Risk Level Prophylaxis Regimen 0-1 Low Early ambulation 2 Moderate Order ONE of the following: *Sequential Compression Device (SCD) *Heparin 5000 units SQ BID 3-4 Higher Order ONE of the following medications: *Heparin 5000 units SQ TID *Enoxaparin/Lovenox 40 mg SQ daily (WT < 150 kg, CrCl > 30 mL/min) *Enoxaparin/Lovenox 30 mg SQ daily (WT < 150 kg, CrCl > 10-29 mL/min) *Enoxaparin/Lovenox 30 mg SQ BID (WT < 150 kg, CrCl > 30 mL/min) AND/OR *Sequential Compression Device (SCD) 5 or more Highest Order ONE of the following medications: *Heparin 5000 units SQ TID (Preferred with Epidurals) *Enoxaparin/Lovenox 40 mg SQ daily (WT < 150 kg, CrCl > 30 mL/min) *Enoxaparin/Lovenox 30 mg SQ daily (WT < 150 kg, CrCl > 10-29 mL/min) *Enoxaparin/Lovenox 30 mg SQ BID (WT < 150 kg, CrCl > 30 mL/min) AND *Sequential Compression Device (SCD) Assessment and Plan - Plan //Atypical chest pain //Atypical pneumonia //Troponin elevation //History of nonischemic cardia myopathy with ejection fraction less than 20%. //Previous history of pulmonary embolism. = Troponin elevated to 0.13. EKG with no acute changes. Could be demand related. Will trend EKGs and troponins. = CT pulmonary and gram-negative for pulmonary embolism, however does show 17 mm right upper lobe pulmonary nodule and will need outpatient PET scan for this. Does show basilar inflammatory infiltrates bilaterally. -Duo nebs, Acapella, incentive spirometry = We will continue on patient's anticoagulation. = BNP under 400 on admission. = We will start on antibiotics. = Follow-up cardiology, pulmonology recommendations. Appreciate assistance. //Chronic kidney disease. Creatinine 1.47 at baseline. Patient did receive CT pulmonary Santiago on admission. Will avoid IV fluids due to cardia myopathy. Avoid further nephrotoxins if possible. //Generalized fatigue. Due to renal failure, will stop gabapentin for now. //Incidental finding of mildly aneurysmal descending aorta. Will need outpatient follow-up with primary care. H&P: Quality - VTE Deep Vein Thrombosis/Pulmonary Embolism Present on Admission: No
[2018-06-27] MEDS: Sod Chloride 0.9% Inj 1,000 ML IV.CONT SCH ×3 (02:31→19:28)
[2018-06-27] MEDS: Azithromycin Inj 500 MG in Sodium Chlor 0.9% Inj 250 ML IV.SIG SCH (03:41)
[2018-06-27 03:43] LABS: Troponin I 0.11 ng/mL (0.02-0.05)
[2018-06-27] MEDS: Acetaminophen 325 MG Tablet PO PRN ×3 (06:11→21:52)
[2018-06-27] MEDS: Rivaroxaban 10 MG Tablet PO SCH (08:45)
[2018-06-27] MEDS: Lisinopril 5 MG Tablet PO SCH (08:46)
[2018-06-27 12:13] LABS: Troponin I 0.1 ng/mL (0.02-0.05)
--- NOTE | 2018-06-27 18:14 | ECG ---
Date Performed: 06/27/2018 Time Performed: 04:07:34 PTAGE: 53 years EKG: Sinus rhythm Left anterior fascicular block Poor R wave progression - cannot rule out septal infarct Left ventric ular hypertrophy Lateral ST-T changes may be due to hypertrophy and/or ischemia Abnormal ECG PREVIOUS TRACING 06/26/18 @ 20.45 Since the previous tracing, no significant change noted DOCTOR: Andrew King Interpretating Date/Time 06/27/2018 18:13:13
[2018-06-27 18:20] LABS: Calcium 7.5 mg/dL (8.5-10.1); Potassium 3.6 meq/L (3.5-5.1)
[2018-06-27 18:21] LABS: C-Reactive Protein 0.83 mg/dL (0.00-0.30)
--- NOTE | 2018-06-27 19:52 | ECG ---
Date Performed: 06/26/2018 Time Performed: 20:45:58 PTAGE: 53 years EKG: Sinus rhythm POSSIBLE LEFT ATRIAL ENLARGEMENT LEFT ANTERIOR FASCICULAR BLOCK LEFT VENTRICULAR HYPERTROPHY AND ST- T CHANGE When compared to previous tracing, lateral ST-T changes are More prominent. ABNORMAL ECG PREVIOUS TRACING : 08/17/2017 05.11.00 DOCTOR: Andrew King Interpretating Date/Time 06/27/2018 19:51:25
[2018-06-28] MEDS: Azithromycin Inj 500 MG in Sodium Chlor 0.9% Inj 250 ML IV.SIG SCH (01:00)
[2018-06-28] MEDS: Sod Chloride 0.9% Inj 1,000 ML IV.CONT SCH (06:50)
[2018-06-28 08:10] LABS: Alanine Aminotransferase 22 U/L (12-78); Albumin 2.6 g/dL (3.4-5.0); Anion Gap 6 meq/L (5-15); Aspartate Aminotransferase 34 U/L (15-37); Blood Urea Nitrogen 21 mg/dL (7-18); Calcium 7.6 mg/dL (8.5-10.1); Carbon Dioxide 24.2 meq/L (21.0-32.0); Chloride 105 meq/L (98-107); Glomerular Filtration Rate 53 mL/min (>89); Glucose,Random 78 mg/dL (74-106); Potassium 4.4 meq/L (3.5-5.1); Sodium 135 meq/L (136-145)
[2018-06-28 08:13] LABS: Alkaline Phosphatase 80 U/L (45-117)
[2018-06-28 08:25] LABS: Baso % (Auto) 0.3 % (0.0-2.0); Eos % (Auto) 0.6 % (0.0-4.0); Hematocrit 40.9 % (39.0-51.0); Hemoglobin 13.2 gm/dL (13.0-17.0); Lymph # (Auto) 0.9 th/mm3 (1.0-4.8); Lymph % (Auto) 25.3 % (9.0-44.0); Mean Corpuscular HGB Conc 32.3 % (32.0-36.0); Mean Corpuscular Hemoglobin 27.3 pg (27.0-34.0); Mean Corpuscular Volume 84.6 fL (80.0-100.0); Mean Platelet Volume 11.5 fL (7.0-11.0); Mono # (Auto) 0.2 th/mm3 (0.0-0.9); Mono % (Auto) 5.3 % (0.0-8.0); Neut # (Auto) 2.5 th/mm3 (1.8-7.7); Neut % (Auto) 68.5 % (16.0-70.0); Platelet Count 79 th/mm3 (150-450); Red Blood Count 4.84 mil/mm3 (4.50-5.90); Red Cell Distribution Width 15.9 % (11.6-17.2); White Blood Count 3.6 th/mm3 (4.0-11.0)
[2018-06-28] MEDS: Rivaroxaban 10 MG Tablet PO SCH (09:49)
[2018-06-28] MEDS: Lisinopril 5 MG Tablet PO SCH (09:49)
[2018-06-28 10:16] VITALS: BP 107/53; RESP 18; TEMP 98; O2SAT 94
[2018-06-28 10:18] VITALS: PULSE 99
--- NOTE | 2018-06-28 12:35 | MB ---
cc: Willie Reveles MD DATE: 06/27/2018 REASON FOR CONSULTATION: COPD. HISTORY OF PRESENT ILLNESS: This is a 53-year-old man with a prior history of cardiomyopathy and ejection fraction of under 25%. He was admitted with progressive shortness of breath, weakness, cough, congestion and left-sided chest pains. The patient also was dizzy and weak. Has been coughing and bringing up foamy mucus. He has been on anticoagulation for his cardiac problems and he also has used an albuterol inhaler. Following admission, however, the patient was started on IV antibiotics including Rocephin 1 gram IV and Zithromax 500 mg daily for an exacerbation of bronchitis and was placed on and admitted. He is having less chest pain at present. No hemoptysis. His chest CT showed no evidence of pulmonary emboli, but mildly enlarged right hilar lymph nodes and a 17 mm pulmonary nodule in the right upper lobe. Head CT was recommended. The patient also had some aneurysmal dilatation of the descending aorta and basilar infiltrates consistent with either pneumonia or atelectasis. PAST MEDICAL HISTORY: Significant for CHF and ASHD, history of COPD and emphysema, history of renal cell cancer, status post nephrectomy and chronic kidney disease as well as hypertension. He has had knee surgery in the past. HABITS: The patient was a smoker, 1 pack per day for over 30 years. Alcohol use, none recently. FAMILY HISTORY: Noncontributory. ALLERGIES: SULFA, LEVAQUIN, TRAMADOL, IBUPROFEN. MEDICATIONS: 1. Lisinopril 2.5 mg a day. 2. Xarelto 10 mg daily. 3. Gabapentin 100 mg t.i.d. REVIEW OF SYSTEMS: The patient has lost weight. He has dizziness. He has chest pain. He has epigastric distress and reflux. He has shortness of breath with wheezing. No urinary symptoms. No leg or calf muscle pains. He has some joint pains to the extremities. PHYSICAL EXAMINATION: GENERAL: This is an averagely built, middle-aged white male who is alert and in no distress. No pallor, cyanosis. No clubbing or peripheral edema. VITAL SIGNS: Blood pressure 100/70, pulse is 92, respirations 16, temperature is 97.5. HEENT: Head normocephalic. Pupils are reactive. Sclerae were clear. Throat was clear. Nasal mucosa was edematous. NECK: Supple without jugular venous distention, thyromegaly or lymphadenopathy. CHEST: Equal movements with diminished breath sounds at the periphery with occasional wheezes in the upper lung ferguson. No crackles. HEART: Sounds are regular, S1, S2 with no murmur. No S3. ABDOMEN: Soft, nontender. No organomegaly. Bowel sounds are active. EXTREMITIES: Mild varicosities and no cyanosis and no deformities. NEUROLOGIC: Reflexes are 1+ with no gross motor or sensory deficits. Cranial nerves grossly intact. The patient is appropriate and is of normal affect. IMPRESSION: 1. Chronic obstructive pulmonary disease with acute exacerbation. 2. Right upper lobe lung nodule, etiology undetermined. 3. Basilar infiltrates, probable early pneumonia. 4. History of cardiomyopathy and congestive heart failure, compensated. PLAN: The patient has been placed on O2 at 2 liters nasal cannula. We will continue with Rocephin 1 gram IV daily. Zithromax switched to 500 mg p.o. daily. DuoNeb solution in the nebulizer q.i.d. and Symbicort 160/4.5 mcg 2 puffs b.i.d. Bedside PFTs will be done. The patient will need a PET CT scan as an outpatient and further workup on the nodule, if the PET scan is positive. We will switch him to p.o. medications once his acute symptoms have subsided and further cardiac workup for his chest pain is to be conducted as well. MD FANI Jaramillo/sanjuana , 11:59 AM , 12:13 PM
== END 2018-06-28 10:22 | disposition left against medical advice (07) ==
LOC: NEPE 19:59 → NEDA 22:56 → N04 06-27 00:30
PROVIDERS: ADMIT Family Medicine; ATTEND Family Medicine